=== PATIENT | female | born 1955 | race Caucasian/White ===

== ENCOUNTER → 2021-07-21 13:51 | Outpatient (BNVA) | payer OTHER, SELFPAY | PROVIDERS: PCP Internal Medicine; Visit Provider Psychiatry & Neurology Neurology | DX: M54.9 Dorsalgia, unspecified (principal); R20.2 Paresthesia of skin; F41.9 Anxiety disorder, unspecified; G47.33 Obstructive sleep apnea (adult) (pediatric) | CPT/HCPCS: 99212 ==

== ENCOUNTER 2021-09-10 11:12 | Outpatient (REF) | payer OTHER, SELFPAY ==
[2021-09-10 11:33] LABS: MANUAL DIFF FLAG NO
[2021-09-10 12:35] LABS: Basophils Absolute Auto 0.1 X10*3/uL (0.0-0.2); Basophils Percent Auto 0.5 % (0-2); Eosinophils Percent Auto 0.4 % (0-4); Hemoglobin 12.6 g/dl (12.0-16.0); Imm Gran Abs Auto 0.04 X10*3/uL (0.00-0.03); Imm Gran Pct Auto 0.4 % (0.0-0.4); Lymphocytes Absolute Auto 2.3 X10*3/uL (1.2-4.9); Lymphocytes Percent Auto 23.3 % (20-40); Mean Corpuscular HGB Conc 32.3 g/dl (31.0-35.0); Mean Corpuscular Hemoglobin 26.4 pg (27.0-33.0); Mean Corpuscular Volume 81.6 fL (80.0-98.0); Mean Platelet Volume 10.2 fL (9.4-12.3); Monocytes Absolute Auto 0.8 X10*3/uL (0.1-1.2); Monocytes Percent Auto 8.5 % (2-11); Neutrophils Absolute Auto 6.6 x10*3/uL (2.0-8.3); Neutrophils Percent Auto 66.9 % (45-73); Platelet Count 387 X10*3/uL (160-400); Red Blood Count 4.78 X10*6/uL (4.20-5.50); Red Cell Distribution Width 14.5 % (11.0-16.0); White Blood Count 9.9 X10*3/uL (4.8-10.8)
[2021-09-10 13:16] LABS: Protein/Creatinine Ratio, Ur 0.28 (<0.2); Total Protein Urine Random 11 mg/dL (<12)
[2021-09-10 13:17] LABS: C Reactive Protein 0.85 mg/dL (< or = 0.50); Erythrocyte Sedimentation Rate 13 MM/HR (0-20)
[2021-09-12 14:03] LABS: Anti DNA DS Antibody <1 IU/mL; SM/Ribonucleoprotein Ab <1.0 NEG AI (<1.0 NEG); Smith Protein <1.0 NEG AI (<1.0 NEG)
== END 2021-09-10 11:13 | disposition home or self-care (01) ==
LOC: HO.LAB 11:12
PROVIDERS: PCP Internal Medicine; Visit Provider Internal Medicine Rheumatology
DX: R76.8 Other specified abnormal immunological findings in serum (principal)
CPT/HCPCS: 36415; 84156; 85025; 85652; 86140; 86225; 86235

== ENCOUNTER 2021-09-30 13:42 | Outpatient (REF) | payer OTHER, SELFPAY ==
[2021-09-30 15:55] LABS: Creatinine Urine 128.45 mg/dL; Protein/Creatinine Ratio, Ur 0.09 (<0.2); Total Protein Urine Random 11 mg/dL (<12)
[2021-09-30 16:09] LABS: Estimated Glomerular Filt Rate > 60
== END 2021-09-30 13:43 | disposition home or self-care (01) ==
LOC: HO.LAB 13:42
PROVIDERS: PCP Internal Medicine; Visit Provider Internal Medicine Rheumatology
DX: R76.8 Other specified abnormal immunological findings in serum (principal)
CPT/HCPCS: 36415; 82565; 84156

== ENCOUNTER 2022-12-29 07:50 | Outpatient (AMB) | payer OTHER, SELFPAY ==
--- NOTE | 2022-12-29 07:56 | A.OFFVIS_ITS ---
Intake Vital Signs 12/29/22 07:57 Height 5 ft 2.5 in Weight 186 lb 4.65 oz BMI 33.5 BP 128/70 Blood Pressure Location Lt brachial Position Sitting Pulse 60 Pulse Source Pulse Oximeter Temp 97.2 F Temp Source Skin Pulse Oximetry (%) 98 Oxygen Delivery Method Room Air Intake Visit Reasons: + DAREN Intake Note: Patient presents today to follow up on +DAREN. Allergies Sulfa (Sulfonamide Antibiotics) Allergy (Intermediate, Verified 12/29/22 08:03) Rash sulfamethoxazole [From Bactrim] Allergy (Intermediate, Verified 12/29/22 08:03) Rash trimethoprim [From Bactrim] Allergy (Intermediate, Verified 12/29/22 08:03) Rash HPI HPI Comments History of Present Illness Details Patient presents today with the new onset of widespread pains. I had seen her about a year ago for a positive DAREN. At that time she had intermittent symptoms of back pain and hip pain consistent with osteoarthritis but no symptoms to suggest inflammatory arthritis. However about 2 months ago she noted the onset of worsening neck pain that radiated to the shoulders. The shoulder pain radiates to the upper arms. There eventually was also some buttock pain that radiated around to the groin. She found she was miserable at night but does improve after about 3 hours of stiffness in the mornings. She found that after she moved around more she felt better but with prolonged sitting the symptoms returned. She had some dull headache around her neck region. She did see her primary doctor. Cervical spine films showed osteoarthritis. Blood work showed elevated ESR and CRP. She was told to stop the omeprazole as that could be causing the problem. She has been off the omeprazole for a week and taking famotidine. Her heartburn did return but she thinks she is managing it. She has a sister with rheumatoid arthritis and cancer. [facility] Medical History (Updated 12/29/22 @ 08:42 by Joel Reeves MD) Paresthesias Vertigo HTN (hypertension) Arthritis Anemia Hypothyroidism Vertigo Anxiety Back pain Social History Household Members: Spouse Housing: House Are you a primary rn intensive care unit to a significant other at home: No Do you presently have visiting nurse or other home services: No 75 years or older and lives alone: No Alcohol intake: current Alcohol intake frequency: a few times a week Alcohol type: wine Patient Tobacco Use Status: Former Tobacco user Years Smoked: Quit 25 years ago e-Cigarette/Vaping Use: Never Used service: No Current occupational status: retired Review of Systems Const Details: Negative for appetite change, weight change, fever, chills, malaise and fatigue Eyes Details: Occasional headache accompanying her neck pain. Negative for vision change, dry eyes, and dizziness ENT Details: Some oral dryness at times. Negative for hearing change, tinnitus, oral ulcer, nose bleeds jaw claudication. Card Details: Negative chest pain, edema and syncope Resp Details: Negative for SOB, cough and wheezing GI Details: Some increase in frequency of heartburn. Negative indigestion/heartburn, nausea, abdominal pain, bowel changes, diarrhea, constipation and bloody stool. Details: Negative for dysuria, hematuria, nocturia, decreased force/flow and genital discharge Skin/Breast Details: Negative for itching, rash, hives, Raynaud's symptoms, sun sensitivity, and skin cancer Neuro Details: Negative for epilepsy, palsy, stroke, changes in speech, tingling and weakness Psych Details: Negative for anxiety, depression and stress Endo Details: Negative for polyuria and polydypsia Adi/Lymph Details: Negative for excessive bruising or bleeding. Physical Exam Vital Signs: Last Vital Signs Temp 97.2 F 12/29/22 07:57 Pulse 60 12/29/22 07:57 BP 128/70 12/29/22 07:57 Pulse Ox 98 12/29/22 07:57 Oxygen Delivery Method Room Air 12/29/22 07:57 BMI result Body Mass Index 33.5 APPEARANCE: Patient in no acute distress EYES no redness, pupils equal and reactive to light, eyelids normal; no temporal artery tenderness, redness or swelling EARS: External ear normal, canal clear and tympanic membrane normal. NOSE/SINUS: Airflow through both nares, no nasal discharge, no bleeding THROAT: Oral mucosa moist, no ulcerations NECK: No thyromegaly or masses, no adenopathy, trachea midline. Carotid upstrokes equal, no bruits HEART: Regulrar rhythm, S1-S2 heard, no murmurs, rubs or gallops. LUNG: Clear to percussion and auscultation ABD: Normal bowel sounds, no organomegaly, masses or tenderness. EXTREMITIES: No edema, no calf tenderness, normal peripheral pulses. NEURO: Oriented and alert x3. No focal weakness. Reflexes symmetric. Gait normal. SKIN: No inflammatory or neoplastic lesions. Normal color and turgor JOINT EXAM:.?? Cervical Spine:.? Mild pain with lateral flexion at 15 degrees of rotation at 45 degrees. There is some mild paraspinal muscle tenderness. Thoracic Spine:.? No scoliosis.? No tenderness on palpation. Lumbar Spine:.? Alignment normal.? Full range of motion without pain, no tenderness. Chest Wall:.? No tenderness, swelling, increased warmth or erythema. Hands:.? Normal pain-free range of motion without tenderness, swelling, increased warmth or erythema. There is no weakness, thenar atrophy or sensory loss. Wrists:.? Normal pain-free range of motion without tenderness, swelling, increased warmth or erythema. Negative Phalen's and Tinel signs. Elbows:. Normal pain-free range of motion without tenderness, swelling, increased warmth or erythema. Shoulders:.??Right: Mild pain with abduction 150 degrees or with extremes of rotation. Mild anterior tenderness. No abductor weakness or adenopathy. Left: Mild to moderate pain with abduction at 100 degrees, mild anterior and subacromial tenderness. Questionable weakness but no swelling or adenopathy.. Hips:.? There is pain in the groin with flexion at 90 degrees, also similar pains occur with any attempted internal or external rotation. She has pain when she is lying down supine trying to extend the hip to the horizontal. Pain is in the groin. Hip bursa:.? Mild bilateral trochanteric tenderness. Knees:.?? Normal pain-free range of motion without tenderness, swelling, increased warmth or erythema.? There is no effusion or crepitation Ankles:.? Normal pain-free range of motion without tenderness, swelling, increased warmth or erythema. Feet:.? There is mild bony enlargement at the 1st MTPs bilaterally, a bit more prominent on the right. The MTP joints today are not tender. Otherwise the joints in the feet have normal pain-free range of motion without tenderness, swelling, increased warmth or erythema. Tender points:. Mild tenderness to digital palpation at the trapezius, anterior chest, greater trochanter area bilaterally. Results Reviewed Results Reviewed: Laboratory Tests 09/10/21 09/10/2109/30/22 11:30 11:30 13:59 WBC 9.9 Hgb 12.6 Plt Count 387 ESR 13 Creatinine 0.80 C-Reactive Protein 0.85 H Sm (Wilson) Antibody <1.0 NEG SM/DRY ROOM ATTENDANT IgG Antibody <1.0 NEG Double Strand DNA Ab <1 December 17 lab work from [place]: Hemoglobin 12.2, white count was 10.1, ESR 35, creatinine 0.72, transaminases normal, TSH normal, DAREN positive at greater than 1:2560, homogeneous pattern, CRP elevated at 2.19 mg/dL T-scores from DEXA at [place] February 2022: LS spine T-score +0.7, left hip T-score +0.3 Assessment & Plan Assessment & Plan (1) Cervical osteoarthritis: Code(s): M47.812 - Spondylosis without myelopathy or radiculopathy, cervical region (2) DAREN positive: Comment: 2021: 1:1280, homogeneous Code(s): R76.8 - Other specified abnormal immunological findings in serum (3) Polymyalgia rheumatica: Code(s): M35.3 - Polymyalgia rheumatica Plan The patient's symptom complex is quite consistent with the onset of PMR about 2 months ago. I do not see signs of giant cell arteritis or large vessel vasculitis. The positive DAREN was noted before but her clinical syndrome is more consistent with PMR. She does have typical morning stiffness in hip and shoulder pains. She does have some occipital headache but it seems more related to cervical pains. There is underlying cervical spine osteoarthritis, the x-ray showed such pathology that has probably been there for years. I gave her some written information on PMR to review. We will start her trial of prednisone with 5 mg tablets: 10 b.i.d. for 3 days then 10 mg in the morning and 5 mg the afternoon. She is to call us next week with how she feels. We will of course try to taper the prednisone as low as we can. She is encouraged to remain physically active. We reviewed potential side effects of the prednisone. Her DEXA was normal in February of last year so that makes the risk of corticosteroid induced osteoporosis much less. We will plan to see her back in about a month with lab work before that visit but she should call us again next week. Orders: Orders Complete Blood Count Auto Diff Today M35.3 - Polymyalgia rheumatica Vitamin D 25-OH (D2 and D3) Today Z79.52 - senior living (current) use of systemic steroids Erythrocyte Sedimentation Rate Today M35.3 - Polymyalgia rheumatica C Reactive Protein Today M35.3 - Polymyalgia rheumatica Basic Metabolic Panel Today Z79.52 - senior living (current) use of systemic steroids Medications: New prednisone take 2 tabs twice a day for 3 days, then two in AM and one in PM; 90 tabs 1RF M35.3 - Polymyalgia rheumatica Coding Level of Care Code New Pt Level 3 (88562) Diagnoses Cervical osteoarthritis M47.812 DAREN positive R76.8 Polymyalgia rheumatica M35.3
[2022-12-29 07:57] VITALS: BP 128/70; PULSE 60; TEMP 36.2; O2SAT 98; BMI 33.5
== END 2022-12-29 08:52 | disposition home or self-care (01) ==
PROVIDERS: PCP Internal Medicine; Referring Provider Internal Medicine; Visit Provider Internal Medicine Rheumatology
DX: M47.812 Spondylosis without myelopathy or radiculopathy, cervical region (principal); R76.8 Other specified abnormal immunological findings in serum; M35.3 Polymyalgia rheumatica
CPT/HCPCS: 99214

== ENCOUNTER → 2022-12-29 07:50 | Outpatient (BNVA) | payer OTHER, SELFPAY | PROVIDERS: PCP Internal Medicine; Visit Provider Internal Medicine Rheumatology | DX: R76.8 Other specified abnormal immunological findings in serum (principal); M47.812 Spondylosis without myelopathy or radiculopathy, cervical region; M35.3 Polymyalgia rheumatica | CPT/HCPCS: 99212 ==

== ENCOUNTER 2023-01-25 11:06 | Outpatient (AMB) | payer MEDICARE, MEDICAID, SELFPAY ==
--- NOTE | 2023-01-25 11:19 | MHC.OFFVIS ---
Intake Vital Signs 01/25/23 11:20 Height 5 ft 2.5 in Weight 183 lb 6.793 oz BMI 33.0 BP 140/80 H Blood Pressure Location Rt brachial Position Sitting Pulse 66 Pulse Source Pulse Oximeter Temp 97 F Temp Source Skin Pulse Oximetry (%) 99 Oxygen Delivery Method Room Air Intake Visit Reasons: +DAREN Intake Note: Patient presents today to follow up on +DAREN. Engine Cleaner Required: No Accompanied by: Self / Same As Patient Allergies Sulfa (Sulfonamide Antibiotics) Allergy (Intermediate, Verified 01/25/23 11:20) Rash sulfamethoxazole [From Bactrim] Allergy (Intermediate, Verified 01/25/23 11:20) Rash trimethoprim [From Bactrim] Allergy (Intermediate, Verified 01/25/23 11:20) Rash rosuvastatin Adverse Reaction (Severe, Verified 01/25/23 11:26) Joint Pain Medication List - Last Reconciled 01/25/23 by Joel Reeves MD atenolol 12.5 mg PO BID clonazepam 0.5 mg PO TID PRN CPAP As directed famotidine 20 mg PO BID hydralazine 25 mg PO BID levothyroxine 100 mcg PO DAILY prednisone 5 mg PO BID HPI HPI Comments History of Present Illness Details The patient returns today for evaluation of her PMR. She says her PMR symptoms are all but gone. She is at 5 mg twice a day prednisone. There is occasional stiffness and pain in the neck that she has had for years attributed to osteoarthritis. On the 06 of January however she was hospitalized with headaches, dizziness, and confusion. At the hospital she was put on anticoagulant briefly and worked up for TIA. There were no obvious vascular lesions seen on her CT angiogram of the neck and brain. She describes that her blood pressure fluctuated quite a bit in the hospital. She was put on aspirin, atenolol 12.5 b.i.d., hydralazine 25 b.i.d. and discharged. The prednisone was due to reduced to 5 mg twice a day. Her blood week from last week however showed a 3 g drop in her hemoglobin to 9.3. ESR was 35, CRP 0.59. She had the hemoglobin re checked in the ER the next day and it was about the same at 9.6. She does not recall any melena, hematochezia, or abdominal pain. She gets occasional heartburn but she was switched off her omeprazole and put on famotidine few weeks ago. She is getting occasional lightheadedness and headache still. Further workup in cardiology is planned for next week. She sees her primary care doctor in a couple of days. [facility] Medical History (Updated 12/29/22 @ 08:42 by Joel Reeves MD) Paresthesias Vertigo HTN (hypertension) Arthritis Anemia Hypothyroidism Vertigo Anxiety Back pain Social History Household Members: Spouse Housing: House Are you a primary rn critical care to a significant other at home: No Do you presently have visiting nurse or other home services: No 75 years or older and lives alone: No Alcohol intake: current Alcohol intake frequency: a few times a week Alcohol type: wine Patient Tobacco Use Status: Former Tobacco user Years Smoked: Quit 25 years ago e-Cigarette/Vaping Use: Never Used service: No Current occupational status: retired Review of Systems Const Details: Negative for appetite change, weight change, fever, chills, malaise and fatigue Eyes Details: Occasional headache. Lightheaded spells have diminished. Negative for vision change, dry eyes ENT Details: Negative for hearing change, tinnitus, oral ulcer, nose bleeds and oral dryness. Card Details: Occasional nonexertional chest tightness and palpitation. She says she has had these before. Negative for, edema and syncope Resp Details: Negative for SOB, cough and wheezing GI Details: Negative indigestion/heartburn, nausea, abdominal pain, bowel changes, diarrhea, constipation and bloody stool. Neuro Details: Negative for epilepsy, palsy, stroke, changes in speech, tingling and weakness Endo Details: Negative for polyuria and polydypsia Adi/Lymph Details: Negative for excessive bruising or bleeding. Physical Exam Vital Signs: Last Vital Signs Temp 97 F 01/25/23 11:20 Pulse 66 01/25/23 11:20 BP 140/80 H 01/25/23 11:20 Pulse Ox 99 01/25/23 11:20 Oxygen Delivery Method Room Air 01/25/23 11:20 BMI result Body Mass Index 33.0 APPEARANCE: Patient in no acute distress EYES no redness, pupils equal and reactive to light, eyelids normal; no temporal artery tenderness, redness or swelling HEART: Regulrar rhythm, S1-S2 heard, no murmurs, rubs or gallops. LUNG: Clear to percussion and auscultation ABD: Normal bowel sounds, no organomegaly, masses or tenderness. EXTREMITIES: No edema, no calf tenderness, normal peripheral pulses. NEURO: Oriented and alert x3. No focal weakness. Reflexes symmetric. Gait normal. SKIN: No inflammatory or neoplastic lesions. Normal color and turgor JOINT EXAM:.?? Cervical Spine:.? Mild discomfort pain with lateral flexion at 15 degrees of rotation at 45 degrees. There is no paraspinal muscle tenderness. Thoracic Spine:.? No scoliosis.? No tenderness on palpation. Lumbar Spine:.? Alignment normal.? Full range of motion without pain, no tenderness. Chest Wall:.? No tenderness, swelling, increased warmth or erythema. Hands:.? Normal pain-free range of motion without tenderness, swelling, increased warmth or erythema. There is no weakness, thenar atrophy or sensory loss. Wrists:.? Normal pain-free range of motion without tenderness, swelling, increased warmth or erythema. Negative Phalen's and Tinel signs. Elbows:. Normal pain-free range of motion without tenderness, swelling, increased warmth or erythema. Shoulders: normal pain-free range of motion. No tenderness, swelling, adenopathy or weakness. Hips: Normal pain-free range of motion. Hip bursa:.? Nol trochanteric tenderness. Knees:.?? Normal pain-free range of motion without tenderness, swelling, increased warmth or erythema.? There is no effusion or crepitation Ankles:.? Normal pain-free range of motion without tenderness, swelling, increased warmth or erythema. Feet:? There is mild bony enlargement at the 1st MTPs bilaterally, a bit more prominent on the right. The MTP joints today are not tender. Otherwise the joints in the feet have normal pain-free range of motion without tenderness, swelling, increased warmth or erythema. Tender points: Mild tenderness to digital palpation at the trapezius, anterior chest, greater trochanter area bilaterally. ? Results Reviewed Results Reviewed: January 19 lab work from [facility]: White count 10.8, hemoglobin 9.3, hematocrit 28.9, ESR 35, CRP 0.59 Assessment & Plan Assessment & Plan (1) Anemia: Code(s): D64.9 - Anemia, unspecified (2) HTN (hypertension): Code(s): I10 - Essential (primary) hypertension (3) Polymyalgia rheumatica: Code(s): M35.3 - Polymyalgia rheumatica Plan She has had a good response to the prednisone consistent with her having PMR. She has some headaches that occurred when we put her on the prednisone so I do not think it is likely related to GCA but more likely some discomfort related to her fluctuating blood pressures. The cause of the anemia that developed after she was hospitalized on the is unclear. She was on some low-dose aspirin when she left the hospital and had been treated with some anticoagulant while in the hospital so if there were any sources of GI bleeding they might be exacerbated by the anticoagulant effect of both medications. At least when we had a recheck the following day the hemoglobin was slightly better. She again does not seem to have any significant GI symptoms. She does have follow-up planned to evaluate her palpitations and lightheaded spells. For now we will keep the prednisone at 5 mg b.i.d.. The sed rate has not yet returned to fully normal range and may have been elevated because of what ever was causing the palpitations, lightheadedness and anemia. We will recheck the ESR and CRP next week to see if the values have normalized. She was encouraged to follow up with primary care and cardiology as planned. Orders: Orders Erythrocyte Sedimentation Rate Today M35.3 - Polymyalgia rheumatica C Reactive Protein Today M35.3 - Polymyalgia rheumatica IRON PROFILE Today D64.9 - Anemia, unspecified Coding Level of Care Code Est Pt Level 4 (85730) Diagnoses Anemia D64.9 HTN (hypertension) I10 Polymyalgia rheumatica M35.3
[2023-01-25 11:20] VITALS: BP 140/80; PULSE 66; TEMP 36.1; O2SAT 99; BMI 33.0
== END 2023-01-25 12:18 | disposition home or self-care (01) ==
PROVIDERS: PCP Internal Medicine; Visit Provider Internal Medicine Rheumatology
DX: D64.9 Anemia, unspecified (principal); I10 Essential (primary) hypertension; M35.3 Polymyalgia rheumatica
CPT/HCPCS: 99214

== ENCOUNTER → 2023-01-25 11:06 | Outpatient (BNVA) | payer MEDICARE, MEDICAID, SELFPAY | PROVIDERS: PCP Internal Medicine; Visit Provider Internal Medicine Rheumatology | DX: M35.3 Polymyalgia rheumatica (principal); I10 Essential (primary) hypertension; D64.9 Anemia, unspecified | CPT/HCPCS: 99212 ==

== ENCOUNTER 2023-02-01 12:08 | Outpatient (REF) | payer MEDICARE, MEDICAID, SELFPAY ==
[2023-02-01 12:22] LABS: MANUAL DIFF FLAG NO
[2023-02-01 12:46] LABS: Basophils Absolute Auto 0.1 X10*3/uL (0.0-0.2); Basophils Percent Auto 0.5 % (0-2); Eosinophils Absolute Auto 0.2 X10*3/uL (0.0-0.4); Eosinophils Percent Auto 1.9 % (0-4); Hematocrit 32.6 % (37.0-47.0); Hemoglobin 10.2 g/dl (12.0-16.0); Imm Gran Abs Auto 0.06 X10*3/uL (0.00-0.03); Imm Gran Pct Auto 0.5 % (0.0-0.4); Lymphocytes Absolute Auto 2.9 X10*3/uL (1.2-4.9); Mean Corpuscular HGB Conc 31.3 g/dl (31.0-35.0); Mean Corpuscular Volume 86.2 fL (80.0-98.0); Mean Platelet Volume 9.9 fL (9.4-12.3); Monocytes Absolute Auto 0.8 X10*3/uL (0.1-1.2); Monocytes Percent Auto 6.3 % (2-11); Neutrophils Absolute Auto 8.6 x10*3/uL (2.0-8.3); Neutrophils Percent Auto 67.8 % (45-73); Platelet Count 472 X10*3/uL (160-400); Red Blood Count 3.78 X10*6/uL (4.20-5.50); Red Cell Distribution Width 13.4 % (11.0-16.0); White Blood Count 12.6 X10*3/uL (4.8-10.8)
[2023-02-01 13:21] LABS: C Reactive Protein 1.82 mg/dL (< or = 0.50); Iron 21 mcg/dL (30-160); Percent Iron Saturation 7 % (15-50); Total Iron Binding Capacity 300 mcg/dL (228-428); Unsaturated Iron Binding 279 ug/dL
[2023-02-01 13:52] LABS: Erythrocyte Sedimentation Rate 58 MM/HR (0-20)
== END 2023-02-01 12:09 | disposition home or self-care (01) ==
LOC: HO.LAB 12:08
PROVIDERS: PCP Internal Medicine; Referring Provider Internal Medicine; Visit Provider Internal Medicine Rheumatology
DX: M35.3 Polymyalgia rheumatica (principal); D64.9 Anemia, unspecified; Z79.899 Other long term (current) drug therapy
CPT/HCPCS: 36415; 83540; 85025; 85652; 86140

== ENCOUNTER 2023-02-23 10:50 | Outpatient (REF) | payer OTHER, SELFPAY ==
[2023-02-23 12:54] LABS: C Reactive Protein 0.47 mg/dL (< or = 0.50)
[2023-02-23 13:06] LABS: Erythrocyte Sedimentation Rate 29 MM/HR (0-20)
== END 2023-02-23 10:51 | disposition home or self-care (01) ==
LOC: HO.LAB 10:50
PROVIDERS: PCP Internal Medicine; Visit Provider Internal Medicine Rheumatology
DX: R70.0 Elevated erythrocyte sedimentation rate (principal); M35.3 Polymyalgia rheumatica
CPT/HCPCS: 36415; 82550; 85652; 86140; 99212

== ENCOUNTER 2023-02-23 10:50 | Outpatient (AMB) | payer MEDICARE, MEDICAID, SELFPAY ==
--- NOTE | 2023-02-23 10:54 | A.OFFVIS_ITS ---
Intake Vital Signs 02/23/23 10:55 Height 5 ft 2.5 in Weight 185 lb 6.54 oz BMI 33.4 BP 116/72 Blood Pressure Location Lt brachial Position Sitting Pulse 59 Pulse Source Pulse Oximeter Pulse Oximetry (%) 96 Oxygen Delivery Method Room Air Intake Visit Reasons: pmr Intake Note: Patient last seen 01/25/23, presents today for follow up and test results. Svp Research And Strategic Analysis Required: No Accompanied by: Self / Same As Patient Allergies Sulfa (Sulfonamide Antibiotics) Allergy (Intermediate, Verified 02/23/23 11:03) Rash sulfamethoxazole [From Bactrim] Allergy (Intermediate, Verified 02/23/23 11:03) Rash trimethoprim [From Bactrim] Allergy (Intermediate, Verified 02/23/23 11:03) Rash rosuvastatin Adverse Reaction (Severe, Verified 02/23/23 11:03) Joint Pain Medication List - Last Reconciled 02/23/23 by Joel Reeves MD atenolol 12.5 mg PO BID clonazepam 0.5 mg PO TID PRN CPAP As directed ferrous sulfate (Feosol) 325 mg PO DAILY hydralazine 25 mg PO BID levothyroxine 100 mcg PO DAILY omeprazole 20 mg PO DAILY prednisone one tab in AM and 1/2 tab in PM daily HPI HPI Comments History of Present Illness Details The patient returns for evaluation of her PMR and iron deficiency anemia. She presently is taking 5 mg of prednisone the morning and 2.5 in the evening. She feels mostly pretty good but does have some fatigue when she is walking. Her daughter, a PT is instructing her in some hip exercises. The patient has some occasional pain in the groin regions but not consistently so. She had some left posterior knee pain after a busy day taking care of a toddler. There has been no headache. She notes deteriorated vision since the beginning of the summer. There is no jaw claudication. She did see GI about her iron deficiency anemia. They did an abdominal CT scan that did not show significant pathology outside of a hiatal hernia. She has had treatment for reflux symptoms for years. When she developed the polyarthralgias the omeprazole was switched to famotidine and the GI symptoms worsened. She is back on omeprazple now and is taking an iron supplement right now. She believes there are plans for endoscopy in the future but it is not scheduled yet. She did see Cardiology about her palpitations and workup has concluded with no significant changes in her medications. Blood pressure control seems better she says with the combination of hydralazine and atenolol. [facility] Medical History (Updated 02/23/23 @ 11:22 by Joel Reeves MD) Paresthesias Vertigo HTN (hypertension) Arthritis Anemia Hypothyroidism Vertigo Anxiety Back pain Social History Household Members: Spouse Housing: House Are you a primary director medicare sales to a significant other at home: No Do you presently have visiting nurse or other home services: No 75 years or older and lives alone: No Alcohol intake: current Alcohol intake frequency: a few times a week Alcohol type: wine Patient Tobacco Use Status: Former Tobacco user Years Smoked: Quit 25 years ago e-Cigarette/Vaping Use: Never Used service: No Current occupational status: retired Review of Systems Const Details: Low energy at times. Negative for appetite change, weight change, fever, chills, malaise and fatigue Eyes Details: Some change in her vision since the summer. No episodic visual changes the. Negative for dry eyes,headaches and dizziness ENT Details: Negative for hearing change, tinnitus, oral ulcer, nose bleeds and oral dryness. Card Details: Negative chest pain, edema and syncope Resp Details: Negative for SOB, cough and wheezing GI Details: Occasional fullness in the epigastrium after eating . Negative nausea, abdominal pain, bowel changes, diarrhea, constipation and bloody stool. Adi/Lymph Details: Negative for excessive bruising or bleeding. Physical Exam Vital Signs: Last Vital Signs Pulse 59 02/23/23 10:55 BP 116/72 02/23/23 10:55 Pulse Ox 96 02/23/23 10:55 Oxygen Delivery Method Room Air 02/23/23 10:55 BMI result Body Mass Index 33.4 APPEARANCE: Patient in no acute distress EYES no redness, pupils equal and reactive to light, eyelids normal EYES no redness, pupils equal and reactive to light, eyelids normal; no temporal artery tenderness, redness or swelling HEART: Regulrar rhythm, S1-S2 heard, no murmurs, rubs or gallops. LUNG: Clear to percussion and auscultation ABD: Normal bowel sounds, no organomegaly, masses or tenderness. EXTREMITIES: No edema, no calf tenderness, normal peripheral pulses. NEURO: Oriented and alert x3. No focal weakness. Reflexes symmetric. Gait normal. SKIN: No inflammatory or neoplastic lesions. Normal color and turgor JOINT EXAM:.?? Cervical Spine:.? Mild discomfort pain with lateral flexion at 15 degrees of rotation at 45 degrees. There is no paraspinal muscle tenderness. Thoracic Spine:.? No scoliosis.? No tenderness on palpation. Lumbar Spine:.? Alignment normal.? Full range of motion without pain, no tenderness. Chest Wall:.? No tenderness, swelling, increased warmth or erythema. Hands:.? Normal pain-free range of motion without tenderness, swelling, increased warmth or erythema. There is no weakness, thenar atrophy or sensory loss. Wrists:.? Normal pain-free range of motion without tenderness, swelling, increased warmth or erythema. Negative Phalen's and Tinel signs. Elbows:. Normal pain-free range of motion without tenderness, swelling, increa sed warmth or erythema. Shoulders: normal pain-free range of motion. No tenderness, swelling, adenopathy or weakness. Hips: Right: Slight groin pain with extremes of normal abduction, internal rotation, or external rotation. No groin tenderness or mass. Left: Normal pain-free range of motion. Hip bursa:.? No trochanteric tenderness. Knees:.?? Normal pain-free range of motion without tenderness, swelling, increased warmth or erythema.? There is no effusion or crepitation Ankles:.? Normal pain-free range of motion without tenderness, swelling, increased warmth or erythema. Feet:? There is mild bony enlargement at the 1st MTPs bilaterally, a bit more prominent on the right. The MTP joints today are not tender. Otherwise the joints in the feet have normal pain-free range of motion without tenderness, swelling, increased warmth or erythema. Tender points: Mild tenderness to digital palpation at the trapezius, anterior chest, greater trochanter area bilaterally. ? Results Reviewed Results Reviewed: Laboratory Tests 02/01/23 12:21 WBC 12.6 H Hgb 10.2 L ESR 58 H % Saturation 7 L C-Reactive Protein 1.82 H Assessment & Plan Assessment & Plan (1) ESR raised: Code(s): R70.0 - Elevated erythrocyte sedimentation rate (2) Polymyalgia rheumatica: Code(s): M35.3 - Polymyalgia rheumatica Plan PMR with it seems fairly good control of inflammatory symptoms. She still has some discomfort in the right hip. This could be some degenerative process rather than active inflammation from PMR. There are no signs of giant cell arteritis. We will recheck her inflammatory markers and consider further taper of the prednisone if those look okay. She has follow-up with her primary doctor on the iron deficiency anemia planned. Follow-up in 2 months seems reasonable. Orders: Orders Erythrocyte Sedimentation Rate Today M35.3 - Polymyalgia rheumatica, R70.0 - Elevated erythrocyte sedimentation rate C Reactive Protein Today M35.3 - Polymyalgia rheumatica Creatine Kinase Total Today M35.3 - Polymyalgia rheumatica, R70.0 - Elevated erythrocyte sedimentation rate Coding Level of Care Code Est Pt Level 3 (95659) Diagnoses ESR raised R70.0 Polymyalgia rheumatica M35.3
[2023-02-23 10:55] VITALS: BP 116/72; PULSE 59; O2SAT 96; BMI 33.4
== END 2023-02-23 11:29 | disposition home or self-care (01) ==
PROVIDERS: PCP Internal Medicine; Visit Provider Internal Medicine Rheumatology
DX: R70.0 Elevated erythrocyte sedimentation rate (principal); M35.3 Polymyalgia rheumatica
CPT/HCPCS: 99213

== ENCOUNTER 2023-04-21 12:11 | Outpatient (REF) | payer MEDICARE, MEDICAID, SELFPAY ==
[2023-04-21 12:43] LABS: MANUAL DIFF FLAG NO
[2023-04-21 12:59] LABS: Basophils Absolute Auto 0.1 X10*3/uL (0.0-0.2); Basophils Percent Auto 0.4 % (0-2); Eosinophils Percent Auto 0.2 % (0-4); Hematocrit 37.2 % (37.0-47.0); Hemoglobin 12.1 g/dl (12.0-16.0); Imm Gran Abs Auto 0.08 X10*3/uL (0.00-0.03); Imm Gran Pct Auto 0.6 % (0.0-0.4); Lymphocytes Absolute Auto 2.2 X10*3/uL (1.2-4.9); Lymphocytes Percent Auto 16.3 % (20-40); Mean Corpuscular HGB Conc 32.5 g/dl (31.0-35.0); Mean Corpuscular Hemoglobin 25.6 pg (27.0-33.0); Mean Corpuscular Volume 78.6 fL (80.0-98.0); Mean Platelet Volume 9.8 fL (9.4-12.3); Monocytes Absolute Auto 0.6 X10*3/uL (0.1-1.2); Monocytes Percent Auto 4.5 % (2-11); Neutrophils Absolute Auto 10.4 x10*3/uL (2.0-8.3); Platelet Count 388 X10*3/uL (160-400); Red Blood Count 4.73 X10*6/uL (4.20-5.50); Red Cell Distribution Width 14.2 % (11.0-16.0); White Blood Count 13.3 X10*3/uL (4.8-10.8)
[2023-04-21 13:22] LABS: C Reactive Protein 1.11 mg/dL (< or = 0.50)
[2023-04-21 13:38] LABS: Erythrocyte Sedimentation Rate 10 MM/HR (0-20)
== END 2023-04-21 12:12 | disposition home or self-care (01) ==
LOC: HO.LAB 12:11
PROVIDERS: Visit Provider Internal Medicine Rheumatology
DX: M35.3 Polymyalgia rheumatica (principal)
CPT/HCPCS: 36415; 85025; 85652; 86140

== ENCOUNTER 2023-04-27 13:01 | Outpatient (AMB) | payer MEDICARE, SELFPAY ==
--- NOTE | 2023-04-27 13:12 | MHC.OFFVIS ---
Intake Vital Signs 04/27/23 13:15 Height 5 ft 2.5 in Weight 195 lb 15.855 oz BMI 35.3 BP 140/80 H Blood Pressure Location Rt brachial Position Sitting Pulse 95 Pulse Source Pulse Oximeter Temp 97 F Temp Source Skin Pulse Oximetry (%) 97 Oxygen Delivery Method Room Air Intake Visit Reasons: PMR Intake Note: Patient last seen 01/25/[address] Reeves, presents today for PMR follow up and test results. Would like to discuss prednisone dose. Tube Knitter Required: No Accompanied by: Self / Same As Patient Allergies Sulfa (Sulfonamide Antibiotics) Allergy (Intermediate, Verified 04/27/23 13:15) Rash sulfamethoxazole [From Bactrim] Allergy (Intermediate, Verified 04/27/23 13:15) Rash trimethoprim [From Bactrim] Allergy (Intermediate, Verified 04/27/23 13:15) Rash rosuvastatin Adverse Reaction (Severe, Verified 04/27/23 13:15) Joint Pain HPI HPI Comments History of Present Illness Details Mrs. Esteves 67yoF returns for evaluation of her PMR and iron deficiency anemia. Patient reports doing well and has not had any return of PMR symptoms since last visit. Prior visit: 02/2023 She presently is taking 5 mg of prednisone the morning and 2.5 in the evening. She feels mostly pretty good but does have some fatigue when she is walking. Her daughter, a PT is instructing her in some hip exercises. The patient has some occasional pain in the groin regions but not consistently so. She had some left posterior knee pain after a busy day taking care of a toddler. There has been no headache. She notes deteriorated vision since the beginning of the summer. There is no jaw claudication. She did see GI about her iron deficiency anemia. They did an abdominal CT scan that did not show significant pathology outside of a hiatal hernia. She has had treatment for reflux symptoms for years. When she developed the polyarthralgias the omeprazole was switched to famotidine and the GI symptoms worsened. She is back on omeprazple now and is taking an iron supplement right now. She believes there are plans for endoscopy in the future but it is not scheduled yet. She did see Cardiology about her palpitations and workup has concluded with no significant changes in her medications. Blood pressure control seems better she says with the combination of hydralazine and atenolol. [facility] Medical History (Updated 02/23/23 @ 11:22 by Joel Reeves MD) Paresthesias Vertigo HTN (hypertension) Arthritis Anemia Hypothyroidism Vertigo Anxiety Back pain Social History Household Members: Spouse Housing: House Are you a primary manager of care to a significant other at home: No Do you presently have visiting nurse or other home services: No 75 years or older and lives alone: No Alcohol intake: current Alcohol intake frequency: a few times a week Alcohol type: wine Patient Tobacco Use Status: Former Tobacco user Years Smoked: Quit 25 years ago e-Cigarette/Vaping Use: Never Used service: No Current occupational status: retired Physical Exam Vital Signs: Last Vital Signs Temp 97 F 04/27/23 13:15 Pulse 95 04/27/23 13:15 BP 140/80 H 04/27/23 13:15 Pulse Ox 97 04/27/23 13:15 Oxygen Delivery Method Room Air 04/27/23 13:15 BMI result Body Mass Index 35.3 Results Reviewed Results Reviewed: January 19 lab work from [facility]: White count 10.8, hemoglobin 9.3, hematocrit 28.9, ESR 35, CRP 0.59 Laboratory Tests 02/01/23 12:21 WBC 12.6 H Hgb 10.2 L ESR 58 H % Saturation 7 L C-Reactive Protein 1.82 H Laboratory Tests 04/21/23 12:41 WBC 13.3 H RBC 4.73 D Hgb 12.1 ESR 10 C-Reactive Protein 1.11 H Assessment & Plan Assessment & Plan (1) ESR raised: Code(s): R70.0 - Elevated erythrocyte sedimentation rate (2) Polymyalgia rheumatica: Code(s): M35.3 - Polymyalgia rheumatica Plan #PMR with it seems fairly good control of inflammatory symptoms. ESR/CRP continues to improve with ESR at goal. She still has some discomfort in the right hip. This could be some degenerative process rather than active inflammation from PMR. There are no signs of giant cell arteritis. We will further taper the prednisone by 1 mg each month. We will recheck ESR/CRP/CBC before next visit. Patient knows to call office if PMR symptoms return on lower doses. We discussed that if symptoms return on lower doses she will go back to the previous dose for 2 weeks and then proceed again with taper. #Anemia:She has follow-up with her primary doctor on the iron deficiency anemia planned and is improved. She will continue on ferrous sulfate 325 mg daily. Follow-up in 2 with labs 1 week before next visit. Orders: Orders Erythrocyte Sedimentation Rate 04/27/23 M35.3 - Polymyalgia rheumatica Complete Blood Count Auto Diff 04/27/23 M35.3 - Polymyalgia rheumatica, Z79.899 - Other longterm (current) drug therapy C Reactive Protein 04/27/23 M35.3 - Polymyalgia rheumatica Medications: New prednisone Take 4 tablets per day x 30 days, 3 tablets per day x 30 days, 2 tablets per day x 30 days. 360 tabs 0RF M35.3 - Polymyalgia rheumatica Coding Level of Care Code Est Pt Level 3 (42494) Diagnoses ESR raised R70.0 Polymyalgia rheumatica M35.3
[2023-04-27 13:15] VITALS: BP 140/80; PULSE 95; TEMP 36.1; O2SAT 97; BMI 35.3
== END 2023-04-27 13:51 | disposition home or self-care (01) ==
PROVIDERS: PCP Internal Medicine; Visit Provider Nurse Practitioner Family
DX: R70.0 Elevated erythrocyte sedimentation rate (principal); M35.3 Polymyalgia rheumatica
CPT/HCPCS: 99213

== ENCOUNTER → 2023-04-27 13:01 | Outpatient (BNVA) | payer MEDICARE, SELFPAY | PROVIDERS: PCP Internal Medicine; Visit Provider Nurse Practitioner Family | DX: M35.3 Polymyalgia rheumatica (principal); R70.0 Elevated erythrocyte sedimentation rate | CPT/HCPCS: 99212 ==

== ENCOUNTER 2023-06-22 12:42 | Outpatient (REF) | payer MEDICARE, SELFPAY ==
[2023-06-22 12:55] LABS: MANUAL DIFF FLAG NO
[2023-06-22 14:21] LABS: Basophils Absolute Auto 0.1 X10*3/uL (0.0-0.2); Basophils Percent Auto 0.5 % (0-2); Eosinophils Percent Auto 0.4 % (0-4); Hematocrit 37.3 % (37.0-47.0); Hemoglobin 12.4 g/dl (12.0-16.0); Imm Gran Abs Auto 0.05 X10*3/uL (0.00-0.03); Imm Gran Pct Auto 0.5 % (0.0-0.4); Lymphocytes Absolute Auto 2.6 X10*3/uL (1.2-4.9); Lymphocytes Percent Auto 26.8 % (20-40); Mean Corpuscular HGB Conc 33.2 g/dl (31.0-35.0); Mean Corpuscular Hemoglobin 26.7 pg (27.0-33.0); Mean Corpuscular Volume 80.2 fL (80.0-98.0); Mean Platelet Volume 9.9 fL (9.4-12.3); Monocytes Absolute Auto 0.7 X10*3/uL (0.1-1.2); Monocytes Percent Auto 7.6 % (2-11); Neutrophils Absolute Auto 6.2 x10*3/uL (2.0-8.3); Neutrophils Percent Auto 64.2 % (45-73); Platelet Count 374 X10*3/uL (160-400); Red Blood Count 4.65 X10*6/uL (4.20-5.50); Red Cell Distribution Width 15.5 % (11.0-16.0); White Blood Count 9.7 X10*3/uL (4.8-10.8)
[2023-06-22 15:02] LABS: Erythrocyte Sedimentation Rate 8 MM/HR (0-20)
[2023-06-22 15:33] LABS: C Reactive Protein 1.04 mg/dL (< or = 0.50)
== END 2023-06-22 12:43 | disposition home or self-care (01) ==
LOC: HO.LAB 12:42
PROVIDERS: PCP Internal Medicine; Visit Provider Nurse Practitioner Family
DX: M35.3 Polymyalgia rheumatica (principal); Z79.899 Other long term (current) drug therapy
CPT/HCPCS: 36415; 85025; 85652; 86140

== ENCOUNTER 2023-06-24 13:30 | Outpatient (AMB) | payer MEDICARE, SELFPAY ==
--- NOTE | 2023-06-24 13:40 | MHC.OFFVIS ---
Vital Signs 06/24/23 13:56 Height 5 ft 2.5 in Weight 195 lb 5.273 oz BMI 35.2 BP 128/70 Blood Pressure Location Rt brachial Position Sitting Pulse 83 Pulse Source Pulse Oximeter Pulse Oximetry (%) 97 Oxygen Delivery Method Room Air Intake Visit Reasons: PMR Intake Note: Patient last seen 04/27/23, presents today for follow up and test results. 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 Esteves 67yoF returns for evaluation of her PMR and iron deficiency anemia. Patient reports doing well and has not had any return of PMR symptoms since last visit. She sees PCP next month. July. She is feeling better so she is increasing her activity. She aches more on rainy days. She is on Prednisone 3 mg QD and changes to 2mg on Wednesday. She is feeling better with this taper. Certain foods also affect how she feels. She is documenting which foods adversely affects her. Prior visit: 02/2023 She presently is taking 5 mg of prednisone the morning and 2.5 in the evening. She feels mostly pretty good but does have some fatigue when she is walking. Her daughter, a PT is instructing her in some hip exercises. The patient has some occasional pain in the groin regions but not consistently so. She had some left posterior knee pain after a busy day taking care of a toddler. There has been no headache. She notes deteriorated vision since the beginning of the summer. There is no jaw claudication. She did see GI about her iron deficiency anemia. They did an abdominal CT scan that did not show significant pathology outside of a hiatal hernia. She has had treatment for reflux symptoms for years. When she developed the polyarthralgias the omeprazole was switched to famotidine and the GI symptoms worsened. She is back on omeprazple now and is taking an iron supplement right now. She believes there are plans for endoscopy in the future but it is not scheduled yet. She did see Cardiology about her palpitations and workup has concluded with no significant changes in her medications. Blood pressure control seems better she says with the combination of hydralazine and atenolol. [facility] Medical History (Updated 06/24/23 @ 14:21 by TWILA Chua) Paresthesias Vertigo HTN (hypertension) Arthritis Anemia Hypothyroidism Vertigo Anxiety Back pain Social History Household Members: Spouse Housing: House Are you a primary career transition specialist to a significant other at home: No Do you presently have visiting nurse or other home services: No 75 years or older and lives alone: No Alcohol intake: current Alcohol intake frequency: a few times a week Alcohol type: wine Patient Tobacco Use Status: Former Tobacco user Years Smoked: Quit 25 years ago e-Cigarette/Vaping Use: Never Used service: No Current occupational status: retired Review of Systems Const All systems reviewed & are unremarkable except as noted in HPI and below Physical Exam Vital Signs: Last Vital Signs Pulse 83 06/24/23 13:56 BP 128/70 06/24/23 13:56 Pulse Ox 97 06/24/23 13:56 Oxygen Delivery Method Room Air 06/24/23 13:56 BMI result Body Mass Index 35.2 Vital signs reviewed. Constitutional: Non-toxic appearing. No acute distress. Well-developed and well-nourished. HEENT: Normocephalic and atraumatic. External auditory canals without erythema or edema bilaterally. Dry mucous membranes. No pharyngeal erythema or exudates. Skin: Warm and dry. No rashes or lesions noted. Neck: Full and painless range of motion. No cervical lymphadenopathy. Cardio: Regular rate and rhythm. No murmurs, gallops, or rubs. No lower extremity edema. No JVD. Pulmonary: No respiratory distress. No accessory muscle usage. Musculoskeletal: Normal range of motion in joints throughout the body. No deformity or other signs of injury. no tenderness on palpation to arms, thighs, upper back. Gait normal, rises and sits without hesitation Neuro: Alert and oriented x4. Cranial nerves 2-12 grossly intact. No focal deficits appreciated. Results Reviewed Results Reviewed: Laboratory Tests 04/21/23 06/22/23 12:41 12:54 WBC 13.3 H 9.7 RBC 4.73 D 4.65 Hgb 12.1 12.4 Hct 37.3 ESR 8 C-Reactive Protein 1.04 H Assessment & Plan Assessment & Plan (1) Polymyalgia rheumatica: Code(s): M35.3 - Polymyalgia rheumatica Category: Medical (2) Anemia: Code(s): D64.9 - Anemia, unspecified Category: Medical Qualifiers: Anemia type: iron deficiency Iron deficiency anemia type: inadequate dietary iron intake Qualified Code(s): D50.8 - Other iron deficiency anemias Plan #PMR with it seems fairly good control of inflammatory symptoms. ESR/CRP continues to improve with ESR at goal, CRP mildly elevated. There are no signs of giant cell arteritis. We will continue taper the prednisone by 1 mg each month. We will recheck ESR/CRP/CBC before next visit. Patient knows to call office if PMR symptoms return on lower doses. We discussed that if symptoms return on lower doses she will go back to the previous dose for 2 weeks and then proceed again with taper. #Anemia:She has follow-up with her primary doctor on the iron deficiency anemia planned and is improved. She will continue on ferrous sulfate 325 mg daily. Follow-up in 3 months with labs 1 week before next visit. I spent 25 minutes reviewing chart, evaluating patient and documenting Orders: Orders Complete Blood Count Auto Diff 3 Months M35.3 - Polymyalgia rheumatica C Reactive Protein 3 Months M35.3 - Polymyalgia rheumatica Erythrocyte Sedimentation Rate 3 Months M35.3 - Polymyalgia rheumatica Comprehensive Met. Panel 3 Months M35.3 - Polymyalgia rheumatica
[2023-06-24 13:56] VITALS: BP 128/70; PULSE 83; O2SAT 97; BMI 35.2
== END 2023-06-24 14:22 | disposition home or self-care (01) ==
PROVIDERS: PCP Internal Medicine; Visit Provider Nurse Practitioner Family
DX: M35.3 Polymyalgia rheumatica (principal); D50.8 Other iron deficiency anemias
CPT/HCPCS: 99213

== ENCOUNTER → 2023-06-24 13:30 | Outpatient (BNVA) | payer OTHER, SELFPAY | PROVIDERS: PCP Internal Medicine; Visit Provider Nurse Practitioner Family | DX: M35.3 Polymyalgia rheumatica (principal); D64.9 Anemia, unspecified; Z79.52 Long term (current) use of systemic steroids | CPT/HCPCS: 99212 ==

== ENCOUNTER 2023-09-24 11:53 | Outpatient (REF) | payer OTHER, SELFPAY ==
[2023-09-24 12:14] LABS: MANUAL DIFF FLAG NO
[2023-09-24 12:27] LABS: Basophils Absolute Auto 0.1 X10*3/uL (0.0-0.2); Basophils Percent Auto 0.6 % (0-2); Eosinophils Absolute Auto 0.1 X10*3/uL (0.0-0.4); Eosinophils Percent Auto 0.9 % (0-4); Hematocrit 36.8 % (37.0-47.0); Hemoglobin 12.2 g/dl (12.0-16.0); Imm Gran Abs Auto 0.05 X10*3/uL (0.00-0.03); Imm Gran Pct Auto 0.5 % (0.0-0.4); Lymphocytes Absolute Auto 1.7 X10*3/uL (1.2-4.9); Lymphocytes Percent Auto 18.1 % (20-40); Mean Corpuscular HGB Conc 33.2 g/dl (31.0-35.0); Mean Corpuscular Hemoglobin 27.7 pg (27.0-33.0); Mean Corpuscular Volume 83.4 fL (80.0-98.0); Mean Platelet Volume 9.4 fL (9.4-12.3); Monocytes Absolute Auto 0.9 X10*3/uL (0.1-1.2); Monocytes Percent Auto 8.9 % (2-11); Neutrophils Absolute Auto 6.7 x10*3/uL (2.0-8.3); Platelet Count 334 X10*3/uL (160-400); Red Blood Count 4.41 X10*6/uL (4.20-5.50); Red Cell Distribution Width 13.6 % (11.0-16.0); White Blood Count 9.5 X10*3/uL (4.8-10.8)
[2023-09-24 13:03] LABS: Erythrocyte Sedimentation Rate 7 MM/HR (0-20)
[2023-09-24 14:48] LABS: Anion Gap 15 (12-20); Blood Urea Nitrogen 11 mg/dL (9-16); Calcium 9.6 mg/dL (8.4-10.2); Carbon Dioxide 24 mmol/L (22-29); Chloride 99 mmol/L (96-108); Estimated Glomerular Filt Rate > 60; Glucose Random 101 mg/dL (60-115); Potassium 4.3 mmol/L (3.3-5.1); Sodium 134 mmol/L (135-145)
[2023-09-24 14:49] LABS: Alanine Aminotransferase 29 U/L (0-31); Albumin Level 4.4 g/dL (3.5-5.0); Alkaline Phosphatase 80 U/L (39-117); Aspartate Amino Transferase 32 U/L (5-31); Bilirubin Total 0.3 mg/dL (0.0-1.0); C Reactive Protein 1.59 mg/dL (< or = 0.50); Total Protein 7.5 g/dL (6.5-8.0)
== END 2023-09-24 11:54 | disposition home or self-care (01) ==
LOC: HO.LAB 11:53
PROVIDERS: PCP Internal Medicine; Visit Provider Nurse Practitioner Family
DX: M35.3 Polymyalgia rheumatica (principal)
CPT/HCPCS: 36415; 80053; 85025; 85652; 86140

== ENCOUNTER 2023-09-28 12:49 | Outpatient (AMB) | payer OTHER, SELFPAY ==
[2023-09-28 12:55] VITALS: BP 122/68; PULSE 57; O2SAT 99; BMI 35.2
--- NOTE | 2023-09-28 12:55 | A.OFFVIS_ITS ---
Vital Signs 09/28/23 12:55 Height 5 ft 2.5 in Weight 195 lb 5.273 oz BMI 35.2 BP 122/68 Blood Pressure Location Lt brachial Position Sitting Pulse 57 Pulse Source Pulse Oximeter Pulse Oximetry (%) 99 Oxygen Delivery Method Room Air Intake Visit Reasons: PMR/CM Intake Note: Patient was last seen on 06/19/2023, here for follow up on PMR. Accompanied by: Self / Same As Patient Allergies Sulfa (Sulfonamide Antibiotics) Allergy (Intermediate, Verified 09/28/23 12:58) Rash sulfamethoxazole [From Bactrim] Allergy (Intermediate, Verified 09/28/23 12:58) Rash trimethoprim [From Bactrim] Allergy (Intermediate, Verified 09/28/23 12:58) Rash rosuvastatin Adverse Reaction (Severe, Verified 09/28/23 12:58) Joint Pain Medication List - Last Reconciled 09/28/23 by Monserrat Bernardo MD atenolol 12.5 mg PO BID clonazepam 0.5 mg PO TID PRN CPAP As directed ferrous sulfate (Feosol) 325 mg PO DAILY hydralazine 25 mg PO BID levothyroxine 100 mcg PO DAILY omeprazole 20 mg PO DAILY prednisone 5 mg PO DAILY prednisone Take 4 tablets per day x 30 days, 3 tablets per day x 30 days, 2 tablets per day x 30 days. HPI Comments Details: This is a 68-year-old female with PMR who presents for follow-up. She stated that she had a flare-up when she reduced her prednisone below 3 mg, she went back to 5 mg daily with resolution of symptoms then she has been slowly tapering her prednisone down to 2 mg. She has been on 2 mg daily for the last 10 days or so. She denies any recurrent symptoms. Denies any headaches or vision changes. [facility], [facility] Medical History Paresthesias Vertigo HTN (hypertension) Arthritis Anemia Hypothyroidism Vertigo Anxiety Back pain Social History Household Members: Spouse Housing: House Are you a primary health care sanitary technician to a significant other at home: No Do you presently have visiting nurse or other home services: No 75 years or older and lives alone: No Alcohol intake: current Alcohol intake frequency: a few times a week Alcohol type: wine Patient Tobacco Use Status: Former Tobacco user Years Smoked: Quit 25 years ago e-Cigarette/Vaping Use: Never Used service: No Current occupational status: retired Review of Systems Const Denies fatigue Musc Denies arthralgias, Denies joint swelling and Denies stiffness Endo Denies fatigue Physical Exam Vital Signs: Last Vital Signs Pulse 57 09/28/23 12:55 BP 122/68 09/28/23 12:55 Pulse Ox 99 09/28/23 12:55 Oxygen Delivery Method Room Air 09/28/23 12:55 BMI result Body Mass Index 35.2 Const General: cooperative, healthy appearing and comfortable Nutritional Appearance: obese morbidly obese Orientation/consciousness: patient oriented x3 Limitations: no limitations HEENT Head: Yes normocephalic and Yes atraumatic Mouth: moist mucous membranes Resp Effort & Inspection: normal respiratory effort and able to speak in complete sentences Auscultation: clear to auscultation bilaterally Cardio Rate: regular rate Skin General skin exam: no rashes or lesions noted Neuro General: patient oriented x3 Extrem Other: No active synovitis Normal nailfold capillaroscopy Normal range of motion of elbows, shoulders without pain Negative rotator cuff provocative maneuvers and negative Speed's test b ilaterally Assessment & Plan Assessment & Plan (1) Polymyalgia rheumatica: Comment: onset around 10/2022 elevated ESR and CRP. ++DAREN Code(s): M35.3 - Polymyalgia rheumatica Category: Medical Plan: This is in 68-year-old female who presents for PMR follow-up. This is her 1st visit with me. She used to follow-up with Lety Melchor. Patient stated that she had a flare-up when she lowered her prednisone from 3 mg daily to 2 mg daily. Prednisone was bumped back to 5 mg daily with resolution of symptoms, she has been tapering her prednisone down to 2 mg daily. She has been on 2 mg daily for the last 10 days with good control of symptoms Advised patient to continue with 2 mg daily for a total of one-month then alternate 1 mg daily with 2 mg daily for 1-2 weeks until she feels well on 1 mg, then stay on 1 mg daily for one-month Labs before next visit in 10-12 weeks (2) Iron deficiency anemia: Code(s): D50.9 - Iron deficiency anemia, unspecified Category: Medical Plan: Follow-up PCP (3) DAREN positive: Comment: 2021: 1:1280, homogeneous Code(s): R76.8 - Other specified abnormal immunological findings in serum Category: Medical Plan: Will check further sub serologies. Can be drug-induced from hydralazine Plan I spent 47 minutes reviewing patient's chart, reviewing outside EMR, evaluating patient, ordering diagnostic workup, counseling patient and documenting in the chart Orders: Orders Immunoglobulin A 10 Weeks D50.9 - Iron deficiency anemia, unspecified Transglutaminase Ab IgG 10 Weeks D50.9 - Iron deficiency anemia, unspecified Anti Extractable Nuclear Ag 10 Weeks M32.9 - Systemic lupus erythematosus, unspecified Anti DNA DS Antibody 10 Weeks M32.9 - Systemic lupus erythematosus, unspecified Complement C4 10 Weeks M32.9 - Systemic lupus erythematosus, unspecified C Reactive Protein 10 Weeks M32.9 - Systemic lupus erythematosus, unspecified DNA Double Stranded-Crithidia 10 Weeks M32.9 - Systemic lupus erythematosus, unspecified Protein Creatinine Ratio, Ur 10 Weeks M32.9 - Systemic lupus erythematosus, uns pecified UA w Microscopic 10 Weeks M32.9 - Systemic lupus erythematosus, unspecified Complete Blood Count Auto Diff 10 Weeks M32.9 - Systemic lupus erythematosus, unspecified Protein Electrophoresis, Serum 10 Weeks M32.9 - Systemic lupus erythematosus, unspecified Cyclic Citrullinated Peptide 10 Weeks M25.50 - Pain in unspecified joint Endomysial IgA rflx Titer 10 Weeks D50.9 - Iron deficiency anemia, unspecified Complement C3 10 Weeks M32.9 - Systemic lupus erythematosus, unspecified Erythrocyte Sedimentation Rate 10 Weeks M32.9 - Systemic lupus erythematosus, unspecified Sjogren's Antibodies 10 Weeks M32.9 - Systemic lupus erythematosus, unspecified Comprehensive Met. Panel 10 Weeks M32.9 - Systemic lupus erythematosus, unspecified Hepatitis A,B,C Profile 10 Weeks Z11.59 - Encounter for screening for other viral diseases Immunofixation Pnl, Serum 10 Weeks M32.9 - Systemic lupus erythematosus, unspecified T Spot TB 10 Weeks Z11.7 - Encounter for testing for latent tuberculosis infection Histone Antibody 10 Weeks L93.2 - Other local lupus erythematosus, T50.905A - Adverse effect of unspecified drugs, medicaments and biological substances, initial encounter Thyroglobulin Antibodies 10 Weeks E03.9 - Hypothyroidism, unspecified Thyroid Peroxidase Antibodies 10 Weeks E03.9 - Hypothyroidism, unspecified Coding Level of Care Code Est Pt Level 5 (75800) Complex EM visit Add On G2211 Diagnoses Polymyalgia rheumatica M35.3 Iron deficiency anemia D50.9 DAREN positive R76.8
== END 2023-09-28 13:46 | disposition home or self-care (01) ==
PROVIDERS: PCP Internal Medicine; Visit Provider Student in an Organized Health Care Education/Training Program
DX: M35.3 Polymyalgia rheumatica (principal); D50.9 Iron deficiency anemia, unspecified; R76.8 Other specified abnormal immunological findings in serum
CPT/HCPCS: 99215; G2211

== ENCOUNTER → 2023-09-28 12:49 | Outpatient (BNVA) | payer OTHER, SELFPAY | PROVIDERS: PCP Internal Medicine; Visit Provider Student in an Organized Health Care Education/Training Program | DX: M35.3 Polymyalgia rheumatica (principal); D50.9 Iron deficiency anemia, unspecified; R76.8 Other specified abnormal immunological findings in serum; Z79.52 Long term (current) use of systemic steroids | CPT/HCPCS: 99212 ==

== ENCOUNTER 2023-12-02 11:57 | Outpatient (REF) | payer OTHER, SELFPAY ==
[2023-12-02 12:32] LABS: MANUAL DIFF FLAG NO
[2023-12-02 13:20] LABS: Appearance Urine Clear; Color Urine Yellow; Glucose Urine UA Negative (Negative); Leukocyte Esterase Urine Moderate (2+) (Negative); Nitrite Urine Negative (Negative); Specific Gravity - Urine <= 1.005 (1.005-1.025); UMIC TRIGGER UA YES; Urine Blood Negative (Negative); Urine Ketones Negative (Negative); Urine Protein Negative (Neg-Trace)
[2023-12-02 13:31] LABS: Bacteria Urine None Seen (None Seen); Hyaline Casts Urine 0-2 /LPF (0-2); RBC Urine 0-2 /HPF (0-2); Squamous Epithelial Cell Urine 0-2 /HPF (0-2); WBC Urine 0-5 /HPF (0-5)
[2023-12-02 14:00] LABS: Basophils Absolute Auto 0.1 X10*3/uL (0.0-0.2); Basophils Percent Auto 0.7 % (0-2); Eosinophils Absolute Auto 0.1 X10*3/uL (0.0-0.4); Eosinophils Percent Auto 0.9 % (0-4); Hemoglobin 12.8 g/dl (12.0-16.0); Imm Gran Abs Auto 0.05 X10*3/uL (0.00-0.03); Imm Gran Pct Auto 0.5 % (0.0-0.4); Lymphocytes Absolute Auto 3.1 X10*3/uL (1.2-4.9); Lymphocytes Percent Auto 29.4 % (20-40); Mean Corpuscular HGB Conc 32.8 g/dl (31.0-35.0); Mean Corpuscular Hemoglobin 27.4 pg (27.0-33.0); Mean Corpuscular Volume 83.3 fL (80.0-98.0); Monocytes Percent Auto 9.3 % (2-11); Neutrophils Absolute Auto 6.2 x10*3/uL (2.0-8.3); Neutrophils Percent Auto 59.2 % (45-73); Platelet Count 395 X10*3/uL (160-400); Red Blood Count 4.68 X10*6/uL (4.20-5.50); Red Cell Distribution Width 13.6 % (11.0-16.0); White Blood Count 10.4 X10*3/uL (4.8-10.8)
[2023-12-02 14:45] LABS: Alanine Aminotransferase 30 U/L (0-31); Albumin Level 4.5 g/dL (3.5-5.0); Alkaline Phosphatase 78 U/L (39-117); Anion Gap 15 (12-20); Aspartate Amino Transferase 35 U/L (5-31); Bilirubin Total 0.4 mg/dL (0.0-1.0); Blood Urea Nitrogen 7 mg/dL (9-16); C Reactive Protein 1.35 mg/dL (< or = 0.50); Carbon Dioxide 23 mmol/L (22-29); Chloride 96 mmol/L (96-108); Estimated Glomerular Filt Rate > 60; Glucose Random 96 mg/dL (60-115); Sodium 130 mmol/L (135-145); Total Protein 7.7 g/dL (6.5-8.0)
[2023-12-02 14:48] LABS: Erythrocyte Sedimentation Rate 5 MM/HR (0-20)
[2023-12-02 14:55] LABS: Creatinine Urine 19.91 mg/dL; Total Protein Urine Random < 7 mg/dL (<12)
[2023-12-03 04:26] LABS: HBS Num1 0.64 mIU/mL (0-7.99); HBc Num1 0.14 S/CO (0.00-0.79); HBsAGNum1 0.27 S/CO (0.00-0.99); Hepatitis A Antibody IgM 0.18 Index (0-0.79); Hepatitis B Core Antibody Nonreactive (Nonreactive); Hepatitis B Surface Antigen Negative (Negative); ~Hepatitis A Antibody IgM Nonreactive (Nonreactive); ~Hepatitis B Surface Antibody NONREACTIVE (Nonreactive); ~Hepatitis C Antibody Nonreactive (Nonreactive)
[2023-12-03 14:27] LABS: Complement C3 145 mg/dL (83-193)
[2023-12-03 18:34] LABS: Thyroid Peroxidase Antibodies 76 IU/mL (<9)
[2023-12-03 18:58] LABS: IgA 407 mg/dL (70-320); IgG 1171 mg/dL (600-1540); IgM 69 mg/dL (50-300)
[2023-12-03 19:34] LABS: Thyroglobulin Antibodies <1 IU/mL (< or = 1)
[2023-12-03 20:38] LABS: Anti DNA DS Antibody <1 IU/mL; Antibody to SS-A Antigen <1.0 NEG AI (<1.0 NEG); Antibody to SS-B Antigen <1.0 NEG AI (<1.0 NEG); SM/Ribonucleoprotein Ab <1.0 NEG AI (<1.0 NEG); Smith Protein <1.0 NEG AI (<1.0 NEG); Transglutaminase Ab IgG <1.0 U/mL
[2023-12-05 05:39] LABS: TS Negative Control Passed; TS Panel A 0; TS Panel B 0; TS Positive Control Passed; TSpotTB Negative (Negative)
[2023-12-07 12:49] LABS: Prot Elec - Albumin 4.4 g/dL (3.8-4.8); Prot Elec - Alpha1 0.3 g/dL (0.2-0.3); Prot Elec - Alpha2 0.7 g/dL (0.5-0.9); Prot Elec - Beta 1 0.5 g/dL (0.4-0.6); Prot Elec - Beta 2 0.5 g/dL (0.2-0.5); Prot Elec - Total Protein 7.4 g/dL (6.1-8.1)
[2023-12-07 17:33] LABS: DNAds, Crithidia Antibody Negative (Negative); Histone Antibody <1.0 U (<1.0)
[2023-12-07 23:54] LABS: Endomysial IgA Antibody Negative (Negative)
[2023-12-08 06:28] LABS: Cyclic Citrullinated Peptide 81 UNITS
== END 2023-12-02 11:58 | disposition home or self-care (01) ==
LOC: HO.LAB 11:57
PROVIDERS: PCP Internal Medicine; Visit Provider Student in an Organized Health Care Education/Training Program
DX: D50.9 Iron deficiency anemia, unspecified (principal); Z11.59 Encounter for screening for other viral diseases; Z11.7 Encounter for testing for latent tuberculosis infection; L93.2 Other local lupus erythematosus; T50.905A Adverse effect of unspecified drugs, medicaments and biological substances, initial encounter; E03.9 Hypothyroidism, unspecified; M25.50 Pain in unspecified joint
CPT/HCPCS: 36415; 80053; 81001; 82570; 82784; 83516; 84156; 84165; 85025; 85652; 86140; 86160; 86200; 86225; 86231; 86235; 86255; 86334; 86364; 86376; 86481; 86704; 86706; 86709; 86800; 86803; 87340

== ENCOUNTER 2023-12-07 12:27 | Outpatient (AMB) | payer OTHER, SELFPAY ==
--- NOTE | 2023-12-07 12:33 | MHC.OFFVIS ---
Vital Signs 12/07/23 12:42 Height 5 ft 2.5 in Weight 191 lb 9.307 oz BMI 34.5 BP 122/80 Blood Pressure Location Rt brachial Position Sitting Pulse 66 Pulse Source Pulse Oximeter Pulse Oximetry (%) 96 Oxygen Delivery Method Room Air Intake Visit Reasons: PMR/CM Intake Note: Patient presents for PMR. Allergies Sulfa (Sulfonamide Antibiotics) Allergy (Intermediate, Verified 12/07/23 12:36) Rash sulfamethoxazole [From Bactrim] Allergy (Intermediate, Verified 12/07/23 12:36) Rash trimethoprim [From Bactrim] Allergy (Intermediate, Verified 12/07/23 12:36) Rash rosuvastatin Adverse Reaction (Severe, Verified 12/07/23 12:36) Joint Pain Medication List - Last Reconciled 12/07/23 by Monserrat Bernardo MD atenolol 12.5 mg PO BID clonazepam 0.5 mg PO TID PRN CPAP As directed ferrous sulfate (Feosol) 325 mg PO DAILY hydralazine 25 mg PO BID levothyroxine 100 mcg PO DAILY omeprazole 20 mg PO DAILY HPI Comments Details: This is a 68-year-old female with PMR who presents for follow-up. Has been tapering down her prednisone slowly. She took prednisone 1 mg daily for 1 month. She discontinued it exactly 1 week ago. Five days ago she started having cold symptoms with fevers, runny nose and generalized fatigue. He was also having some increasing stiffness of her thighs and shoulders associated with fatigue. [facility] Medical History Paresthesias Vertigo HTN (hypertension) Arthritis Anemia Hypothyroidism Vertigo Anxiety Back pain Family History Brother Liver disease Cancer Sister Stroke Diabetes Sister Cancer Rheumatoid arthritis Sister Vitiligo Rheumatoid arthritis Daughter Vitiligo Social History Household Members: Spouse Housing: House Are you a primary home care giver to a significant other at home: No Do you presently have visiting nurse or other home services: No 75 years or older and lives alone: No Alcohol intake: current Alcohol intake frequency: a few times a week Alcohol type: wine Patient Tobacco Use Status: Former Tobacco user Years Smoked: Quit 25 years ago e-Cigarette/Vaping Use: Never Used service: No Current occupational status: retired Review of Systems Const Reports fatigue Musc Reports arthralgias, Denies joint swelling and Reports stiffness Endo Reports fatigue Physical Exam Vital Signs: Last Vital Signs BP 122/80 12/07/23 12:42 BMI result Body Mass Index 34.5 Const General: cooperative, healthy appearing and comfortable Nutritional Appearance: obese morbidly obese Orientation/consciousness: patient oriented x3 Limitations: no limitations HEENT Head: Yes normocephalic and Yes atraumatic Mouth: moist mucous membranes Resp Effort & Inspection: normal respiratory effort and able to speak in complete sentences Auscultation: clear to auscultation bilaterally Cardio Rate: regular rate Neuro General: patient oriented x3 Extrem Other: No active synovitis Normal nailfold capillaroscopy Normal range of motion of elbows, shoulders without pain Negative rotator cuff provocative maneuvers and negative Speed's test bilaterally Assessment & Plan Assessment & Plan (1) Polymyalgia rheumatica: Comment: onset around 10/2022 elevated ESR and CRP. ++DAREN Code(s): M35.3 - Polymyalgia rheumatica Category: Medical Plan: This is in 68-year-old female who presents for PMR follow-up. She has tapered herself off of prednisone about a week ago but 5 days ago she started having cold symptoms with fevers, generalized fatigue, body aches, nasal congestion. Symptoms are improving. It was hard to assess her PMR when she is recovering from flu-like illness. Continue to watch patient off prednisone. Labs before next visit in 10 weeks (2) DAREN positive: Comment: 2021: 1:1280, homogeneous Code(s): R76.8 - Other specified abnormal immunological findings in serum Category: Medical Plan: Most sub serologies are negative except for positive TPO antibody. Patient has known history of hypothyroidism and takes levothyroxine regularly. Celiac antibodies pending (3) Iron deficiency anemia: Code(s): D50.9 - Iron deficiency anemia, unspecified Category: Medical Plan: Normal hemoglobin on recent labs. Patient however has been taking iron supplements. The celiac disease question was raised. She states that she had her daughter has gluten sensitivity. Patient herself has lowered her intake of gluten thinning products and has noticed better regulate her bowel movement. She has an appointment with her airbrush artist technical soon. Advised patient to discuss with them (4) Hyponatremia: Code(s): E87.1 - Hypo-osmolality and hyponatremia Category: Medical Plan: Intermittent and mild. If patient continues to have hyponatremia in the next set of labs. I will refer her to Nephrology Plan I spent 47 minutes reviewing patient's chart, reviewing outside EMR, evaluating patient, ordering diagnostic workup, counseling patient and documenting in the chart Orders: Orders Erythrocyte Sedimentation Rate 10 Weeks M35.3 - Polymyalgia rheumatica Complete Blood Count Auto Diff 10 Weeks M35.3 - Polymyalgia rheumatica Comprehensive Met. Panel 10 Weeks M35.3 - Polymyalgia rheumatica C Reactive Protein 10 Weeks M35.3 - Polymyalgia rheumatica Coding Level of Care Code Est Pt Level 5 (97160) Complex EM visit Add On G2211 Diagnoses Polymyalgia rheumatica M35.3 DAREN positive R76.8 Iron deficiency anemia D50.9 Hyponatremia E87.1
[2023-12-07 12:42] VITALS: BP 122/80; PULSE 66; O2SAT 96; BMI 34.5
== END 2023-12-07 13:07 | disposition home or self-care (01) ==
PROVIDERS: PCP Internal Medicine; Visit Provider Student in an Organized Health Care Education/Training Program
DX: M35.3 Polymyalgia rheumatica (principal); R76.8 Other specified abnormal immunological findings in serum; D50.9 Iron deficiency anemia, unspecified; E87.1 Hypo-osmolality and hyponatremia
CPT/HCPCS: 99215; G2211

== ENCOUNTER → 2023-12-07 12:27 | Outpatient (BNVA) | payer OTHER, SELFPAY | PROVIDERS: PCP Internal Medicine; Visit Provider Student in an Organized Health Care Education/Training Program | DX: M35.3 Polymyalgia rheumatica (principal); R76.8 Other specified abnormal immunological findings in serum; E87.1 Hypo-osmolality and hyponatremia; D50.9 Iron deficiency anemia, unspecified; Z79.52 Long term (current) use of systemic steroids | CPT/HCPCS: 99212 ==

== ENCOUNTER 2024-02-07 11:24 | Outpatient (REF) | payer OTHER, SELFPAY ==
[2024-02-07 11:57] LABS: MANUAL DIFF FLAG NO
[2024-02-07 12:20] LABS: Basophils Absolute Auto 0.1 X10*3/uL (0.0-0.2); Eosinophils Absolute Auto 0.6 X10*3/uL (0.0-0.4); Eosinophils Percent Auto 5.3 % (0-4); Hemoglobin 13.5 g/dl (12.0-16.0); Imm Gran Abs Auto 0.03 X10*3/uL (0.00-0.03); Imm Gran Pct Auto 0.3 % (0.0-0.4); Lymphocytes Percent Auto 27.9 % (20-40); Mean Corpuscular HGB Conc 32.9 g/dl (31.0-35.0); Mean Corpuscular Hemoglobin 26.2 pg (27.0-33.0); Mean Corpuscular Volume 79.5 fL (80.0-98.0); Mean Platelet Volume 10.3 fL (9.4-12.3); Monocytes Absolute Auto 0.9 X10*3/uL (0.1-1.2); Monocytes Percent Auto 8.3 % (2-11); Neutrophils Absolute Auto 6.2 x10*3/uL (2.0-8.3); Neutrophils Percent Auto 57.2 % (45-73); Platelet Count 431 X10*3/uL (160-400); Red Blood Count 5.16 X10*6/uL (4.20-5.50); Red Cell Distribution Width 12.8 % (11.0-16.0); White Blood Count 10.8 X10*3/uL (4.8-10.8)
[2024-02-07 13:06] LABS: Erythrocyte Sedimentation Rate 20 MM/HR (0-20)
[2024-02-07 13:19] LABS: Alanine Aminotransferase 25 U/L (0-31); Albumin Level 4.2 g/dL (3.5-5.0); Alkaline Phosphatase 68 U/L (39-117); Anion Gap 11 (12-20); Aspartate Amino Transferase 27 U/L (5-31); Bilirubin Total 0.2 mg/dL (0.0-1.0); Blood Urea Nitrogen 8 mg/dL (9-16); C Reactive Protein 1.18 mg/dL (< or = 0.50); Calcium 9.5 mg/dL (8.4-10.2); Carbon Dioxide 23 mmol/L (22-29); Chloride 102 mmol/L (96-108); Estimated Glomerular Filt Rate > 60; Glucose Random 106 mg/dL (60-115); Sodium 132 mmol/L (135-145); Total Protein 7.6 g/dL (6.5-8.0)
== END 2024-02-07 11:25 | disposition home or self-care (01) ==
LOC: HO.LAB 11:24
PROVIDERS: PCP Internal Medicine; Visit Provider Student in an Organized Health Care Education/Training Program
DX: M35.3 Polymyalgia rheumatica (principal)
CPT/HCPCS: 36415; 80053; 85025; 85652; 86140

== ENCOUNTER 2024-02-15 12:25 | Outpatient (AMB) | payer OTHER, SELFPAY ==
--- NOTE | 2024-02-15 12:29 | A.OFFVIS_ITS ---
Vital Signs 02/15/24 12:40 Height 5 ft 2.5 in Weight 174 lb 9.698 oz BMI 31.4 BP 140/74 H Blood Pressure Location Lt brachial Position Sitting Pulse 63 Pulse Source Pulse Oximeter Pulse Oximetry (%) 97 Oxygen Delivery Method Room Air Intake Visit Reasons: PMR/CM Intake Note: Patient presents for PMR. Allergies hydralazine Allergy (Severe, Verified 02/15/24 12:35) Shortness of Breath Sulfa (Sulfonamide Antibiotics) Allergy (Intermediate, Verified 02/15/24 12:32) Rash sulfamethoxazole [From Bactrim] Allergy (Intermediate, Verified 02/15/24 12:32) Rash trimethoprim [From Bactrim] Allergy (Intermediate, Verified 02/15/24 12:32) Rash rosuvastatin Adverse Reaction (Severe, Verified 02/15/24 12:32) Joint Pain Medication List - Last Reconciled 02/15/24 by Monserrat Bernardo MD atenolol 12.5 mg PO BID cetirizine 10 mg PO BEDTIME clonazepam 0.5 mg PO TID PRN CPAP As directed levothyroxine 100 mcg PO DAILY prednisone 10 mg PO DAILY spironolactone 50 mg PO DAILY HPI Comments Details: This is a 68-year-old female with PMR who presents for follow-up. She is s/p surgery for esophageal hernia repair. Per patient she is recovering well. She is on a liquid diet and will be seeing her surgeon tomorrow to do a repeat barium swallow and hopefully start a regular diet. She states that perioperatively she had an endoscopy. Per patient she was found to have celiac disease, Crohn's disease and positive for H pylori, records unavailable to me. With regards to her joints, she is doing reasonably well continues to have intermittent aches and pains but no significant joint pain swelling or stiffness. She takes 1 or 2 Tylenol Arthritis as needed Over the last year she has been having recurrent itchy rashes. One episode she had significant rash associated with joint pain and hypertension, she went to the emergency room. It was attributed to hydralazine. Hydralazine was since discontinued. She was just started on prednisone 10 mg daily by her PCP yesterday. [facility] Medical History Paresthesias Vertigo HTN (hypertension) Arthritis Anemia Hypothyroidism Vertigo Anxiety Back pain Surgical History H/O esophageal hernia repair Family History Brother Liver disease Cancer Sister Stroke Diabetes Sister Cancer Rheumatoid arthritis Sister Vitiligo Rheumatoid arthritis Daughter Vitiligo Social History Household Members: Spouse Housing: House Are you a primary wound care physician to a significant other at home: No Do you presently have visiting nurse or other home services: No 75 years or older and lives alone: No Alcohol intake: current Alcohol intake frequency: a few times a week Alcohol type: wine Patient Tobacco Use Status: Former Tobacco user Years Smoked: Quit 25 years ago e-Cigarette/Vaping Use: Never Used service: No Current occupational status: retired Review of Systems Musc Reports arthralgias and Denies joint swelling Physical Exam Vital Signs: Last Vital Signs Pulse 63 02/15/24 12:40 BP 140/74 H 02/15/24 12:40 Pulse Ox 97 02/15/24 12:40 Oxygen Delivery Method Room Air 02/15/24 12:40 BMI result Body Mass Index 31.4 Const General: cooperative, healthy appearing and comfortable Nutritional Appearance: obese morbidly obese Orientation/consciousness: patient oriented x3 Limitations: no limitations HEENT Head: Yes normocephalic and Yes atraumatic Mouth: moist mucous membranes Resp Effort & Inspection: normal respiratory effort and able to speak in complete sen tences Auscultation: clear to auscultation bilaterally Cardio Rate: regular rate Neuro General: patient oriented x3 Extrem Other: No active synovitis today Normal nailfold capillaroscopy Normal range of motion of elbows, shoulders without pain Negative rotator cuff provocative maneuvers and negative Speed's test bilaterally Assessment & Plan Assessment & Plan (1) Polymyalgia rheumatica: Comment: onset around 10/2022 elevated ESR and CRP. ++DAREN Code(s): M35.3 - Polymyalgia rheumatica Category: Medical Plan: This is in 68-year-old female who presents for PMR follow-up. Prednisone has been tapered off for the last few months but just restarted at 10 mg a day by PCP for an allergic reaction. On exam today there is no active synovitis. Continues to have intermittent joint pains, treated with Tylenol Arthritis. Most recent labs showed a positive anti CCP antibody. 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 We discussed treating it, discussed hydroxychloroquine. Discussed risk of retinopathy and need for regular eye exam Per patient her recent endoscopy showed H pylori, celiac disease as well as Crohn's disease. Records unavailable to me. Will request records from patient's [facility]. Patient will think about hydroxychloroquine. Labs before next visit in 3 months (2) DAREN positive: Comment: 2021: 1:1280, homogeneous Code(s): R76.8 - Other specified abnormal immunological findings in serum Category: Medical Plan: Most sub serologies are negative except for positive TPO antibody. Patient has known history of hypothyroidism and takes levothyroxine regularly. Celiac disease antibodies pending (3) Iron deficiency anemia: Code(s): D50.9 - Iron deficiency anemia, unspecified Category: Medical Plan: Per patient, endoscopy showed celiac disease. Antibodies are negative. Request records from [employer] [facility] Check IBD panel Plan I spent 27 minutes reviewing patient's chart, evaluating patient, ordering diagnostic workup, counseling patient and documenting in the chart Orders: Orders [facility] SGI 3 Months K50.90 - Crohn's disease, unspecified, without complications Complete Blood Count Auto Diff 3 Months M35.3 - Polymyalgia rheumatica Comprehensive Met. Panel 3 Months M35.3 - Polymyalgia rheumatica C Reactive Protein 3 Months M35.3 - Polymyalgia rheumatica Erythrocyte Sedimentation Rate 3 Months M35.3 - Polymyalgia rheumatica Coding Level of Care Code Est Pt Level 4 (51754) Diagnoses Polymyalgia rheumatica M35.3 DAREN positive R76.8 Iron deficiency anemia D50.9
[2024-02-15 12:40] VITALS: BP 140/74; PULSE 63; O2SAT 97; BMI 31.4
== END 2024-02-15 13:09 | disposition home or self-care (01) ==
PROVIDERS: PCP Internal Medicine; Visit Provider Student in an Organized Health Care Education/Training Program
DX: M35.3 Polymyalgia rheumatica (principal); R76.8 Other specified abnormal immunological findings in serum; D50.9 Iron deficiency anemia, unspecified
CPT/HCPCS: 99214

== ENCOUNTER → 2024-02-15 12:25 | Outpatient (BNVA) | payer OTHER, SELFPAY | PROVIDERS: PCP Internal Medicine; Visit Provider Student in an Organized Health Care Education/Training Program | DX: M35.3 Polymyalgia rheumatica (principal); R76.8 Other specified abnormal immunological findings in serum; D50.9 Iron deficiency anemia, unspecified | CPT/HCPCS: 99212 ==

== ENCOUNTER 2024-04-14 14:25 | Outpatient (REF) | payer OTHER, SELFPAY ==
--- OUTSIDE RECORDS SUMMARY | 2024-04-14 14:41 | XMS_ITS | Clinical Summary ---
Author Organization [facility] Address [address] [place] [id number] Care Team Providers Care Sales Service Route Manager Name Role Phone Urvashi Paredes NP Primary Care Provider [phone] Allergies Active Allergy Reactions Criticality Noted Date Comments Sulfamethoxazole-Trime thoprim 08/10/2020 Sulfa Antibiotics Other (See Comments) 10/13/19 16 Pt is unsure of what her reactions is but no that she has been told that she is. Medications Medication Sig Dispensed Refills Start Date End Date Status omeprazole (PRILOSEC) 20 MG capsule Take 20 mg by mouth daily. 0 Active levothyroxine (SYNTHROID, LEVOXYL) tablet 100 mcg Take 100 mcg by mouth every morning on an empty stomach. 0 Active losartan (COZAAR) tablet 50 mg losartan 50 mg tablet 0 Active clonazePAM (KlonoPIN) 0.5 MG tablet clonazepam 0.5 mg tablet 0 02/25/2012 Active amLODIPine (NORVASC) tablet 5 mg amlodipine 5 mg tablet 0 Active Social History Tobacco Use Types Packs/Day Years Used Date Smoking Tobacco: Never Smokeless Tobacco: Never Alcohol Use Standard Drinks/Week Comments Yes 0 (1 standard drink = 0.6 oz pur e alcohol) socially Sex and Gender Information Value Date Recorded Sex Assigned at Female 08/10/2020 10:27 AM EDT Gender Identity Female 08/10/2020 10:27 AM EDT Sexual Orientation Not on file Job Start Date Occupation Industry Not on file Not on file Not on file Last Filed Vital Signs Vital Sign Reading Time Taken Comments Blood Pressure 169/99 08/10/2020 9:49 AM EDT Pulse 78 08/10/2020 9:49 AM EDT Temperature 35.9 ??C (96.7 ??F) 08/10/2020 9:49 AM ED T Respiratory Rate 16 08/10/2020 9:49 AM EDT Oxygen Saturation 95% 08/10/2020 9:49 AM EDT Inhaled Oxygen Concentration - - Weight 83.9 kg (185 lb) 06/27/2019 5:25 PM EDT Height 157.5 cm (5' 2 ) 06/27/2019 5:25 PM EDT Body Mass Index 33.84 06/27/2019 5:25 PM EDT Plan of Treatment Health Maintenance Due Date Last Done Comments Hepatitis C Screening 1955 COVID-19 Vaccine (#1) 01/23/1956 Depression Screening 1967 BMI Counseling 07/22/1973 Preventative Health Evaluation 07/22/1973 Colon Cancer Screening (Colonoscopy) 07/22/2000 Breast Cancer Screening (Mammogram) 07/22/2005 Shingrix-Zoster Vaccine (1 of 2) 07/22/2005 DTap / Tdap / Td (2 - Td or Tdap) 10/05/2019 010 Fall Risk Assessment 07/22/2020 Osteoporosis Screening (DEXA Scan) 07/22/2020 Pneumococcal Vaccine (1 of 1 - PCV) 07/22/2020 Influenza Vaccine (#1) 2023 RSV Adult > 60+ Yrs or Pregn ant (1 - 1-dose 75+ series) 07/22/2030 Hepatitis B Vaccines Aged Out No long er eligible based on patient's age to complete this topic RSV Ped < 20 months Aged Out No longe r eligible based on patient's age to complete this topic Care Teams Sales Service Route Manager Relationship Specialty Start Date End Date Urvashi Paredes, [employer] [address] [place] [id number] PCP - General Nurse Practitioner 08/10/20
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
--- OUTSIDE RECORDS SUMMARY | 2024-04-14 14:41 | XMS_ITS | Clinical Summary ---
Author Organization [facility] Address [address] [place] [address] Phone Care Team Providers Care Employee Benefits Coordinator Name Role Phone Belia Villavicencio MD Primary Care Prov ider Allergies Active Allergy Reactions Criticality Noted Date Comments Gluten Itching,GI intolerance 01/03/2024 Hydralazine Cardiac Issue High 02/16/2024 Severe chest pain Txieukf-Dpp-Wtv Reductase Inhibitors Muscular Issues High 01/08/2023 Sulfa (Sulfonamide Antibiotics) Rash 01/03/2024 Medications Medication Sig Dispensed Refills Start Date End Date Status cetirizine (ZyrTEC) 10 mg tablet Take 1 tablet (10 mg total) by mouth 1 (one) time each day if needed for allergies. 11/11/2023 Active atenoloL (TENORMIN) 25 mg tablet Take 0.5 tablets (12.5 mg total) by mouth 1 (one) time each day. 07/22/2023 Active clonazePAM (KlonoPIN) 0.5 mg tabletIndication s:Panic disorder (episodic paroxysmal anxiety) TAKE 1 TABLET BY MOUTH 3 TIMES DAILY FOR 28 DAYS. 84 tablet 2 02/10/2024 Active spironolactone (Aldactone) 50 mg tablet Take 1 tablet (50 mg total) by mouth 1 (one) time each day. 30 each 11 02/14/2024 5 Active levothyroxine (SYNTHROID, LEVOTHROID) 100 mcg tablet Take 1 tablet (100 mcg total) by mouth 1 (one) time each day before breakfast. 90 tablet 03/16/2024 Active ferrous sulfate 325 mg (65 mg elemental iron) tablet TAKE 1 TABLET BY MOUTH EVERY DAY 90 tablet 1 03/22/2024 Active Additional Information Patient not taking.Reported on 03/27/2024 cefadroxil 500 mg capsule Take 1 capsule (500 mg total) by mouth 2 (two) times a day for 10 days. 20 capsule 04/12/2024 5 Active levothyroxine (SYNTHROID, LEVOTHROID) 100 mcg tablet Take 1 tablet (100 mcg total) by mouth 1 (one) time each day before breakfast. 04/09/2020 5 Discontinued (Reorder) amoxicillin (AMOXIL) 500 mg capsule Take 2 capsules (1,000 mg total) by mouth 2 (two) times a day. 56 capsule 02/24/2024 5 Discontinued (Therapy completed) famotidine (PEPCID) 20 mg tablet TAKE 1 TABLET BY MOUTH EVERY DAY 90 tablet 1 03/22/2024 5 Discontinued (Therapy completed) amoxicillin-clav ulanate (AUGMENTIN) 500-125 mg per tablet Take 1 tablet by mouth 3 (three) times a day for 7 days. 21 each 03/31/2024 5 Active Problems Problem Noted Date Diagnosed Date Celiac disease 03/28/2024 GERD (gastroesophageal reflux disease) 4 Incarcerated paraesophageal hernia 12/27/2023 Overview (01/11/2024): Last Assessment & Plan: 68-year-old woman newly diagnosed with celiac sprue with a very large paraesophageal hernia type III with symptoms of early satiety, nausea, and occasional dysphagia but no pain, inability to vomit, or black tarry/bloody stools. I had a long discussion with her about paraesophageal hernias in general and what their potential natural history is. We also talked about the imaging she has had in particular her most recent CT scan and prior imaging as described in the HPI. My recommendation to her would be for an elective repair of a giant type III paraesophageal hernia at this point which we will plan to schedule she is agreeable for mid January. Prior to that we will need to get a CT scan of the chest because I do not see the entire contents of the hernia on the abdominal scan in October. We will also get a barium esophagram to get some functional evaluation of the esophagus and hernia. Finally we will plan on getting an EGD to visualize the mucosal side of the esophagus and ensure there are no ulcers or other mucosal lesions that would change our operation significantly. Discussed the risk, benefits, and alternatives of a da Sierra paraesophageal hernia repair with mesh and fundoplication which she seemed understand and agreed to proceed. All questions were answered. Assessment & Plan (02/27/2024 3:28 PM EST): On January 18, 2024 she was taken to the OR and underwent a robotic paraesophageal hernia repair with mesh and fundoplication. He has been tolerating a mechanical soft diet well and her barium swallow study which was performed today shows no evidence of extravasation or leakage with some postoperative edema and moderate esophageal dysmotility with passage of contrast from esophagus to stomach. Advancing her to a regular diet instructions to continue to abstain from straws and carbonated beverages as well as continue to abstain from lifting anything greater than 10 pounds for an additional 2 weeks. Advised to contact the thoracic surgery department moving forward on a as needed basis. Assessment & Plan (02/06/2024 3:35 PM EST): On January 18, 2024 she was taken to the OR and underwent a robotic PEH repair with mesh and fundoplication. Since being discharged from the hospital she has been on a full liquid diet well and crushing all of her p.o. medications Has not been requiring the use of any narcotic pain analgesics in several days and has been doing fine with just the use of Tylenol. Will be advancing to a mechanical soft diet at this time. She was advised that she may now take her p.o. medications whole only 1 at the time. To continue to abstain from carbonated beverages and straws and to avoid lifting anything greater than 10 pounds for the next 4 weeks. Will be seen in this office in 2 weeks time for further assessment of her soft mechanical diet as well as having a barium swallow study. Giant cell arteritis with polymyalgia rheumatica 12/29/2022 Overview (01/11/2024): 12/28 - engaged with Dr. Reeves of rheumatology at [place] Palpitations 03/30/2022 Positive DAREN (antinuclear antibody) 06/18/2021 Obesity (BMI 30.0-34.9) 06/17/2021 Obstructive sleep apnea 06/17/2021 Overview (01/11/2024): Using CPAP (June 2021) Lumbago 10/29/2009 Radiculitis, lumbosacral 10/29/2009 Anemia 10/04/2009 Rheumatoid arthritis 10/04/2009 Hypercholesteremia 10/04/2009 Hypertension 10/04/2009 Hypothyroid 10/04/2009 Panic disorder 10/04/2009 Resolved Problems Problem Noted Date Diagnosed Date Resolved Date Hiatal hernia 03/03/2023 01/19/2024 Assessment & Plan (01/19/2024 2:29 PM EST): Ms. Esteves is a 68 y/o female who is S/P Robotic PEH with mesh and fundoplication on 01/18/24. She is being discharged home in stable condition on a full liquid diet. She is instructed to crush medications No straws or carbonated liquids. No Heavy lifting > 10 pounds She is instructed to call the office with any questions or concerns. She has a follow up appt. Encounters Date Type Department Care Team Description 04/12/2024 3:30 PM EST Office Visit Walk-In Clinic - [place] [id number] [place] [phone] Sue Williamson NP Acute non-recurrent maxillary sinusitis (Primary Dx) 03/30/2024 12:29 PM EST - 03/30/2024 11:59 PM EST Hospital Encounter Radiology Department - [address] [phone] Submandibular gland mass Discharge Disposition: Home or Self Care 03/28/2024 2:30 PM EST Office Visit Adult Medicine [facility] [address] [place] [phone] Belia Villavicencio MD Rheumatoid arthritis, involving unspecified site, unspecified whether rheumatoid factor present ([facility]) (Primary Dx); Primary hypertension; Celiac disease; Iron deficiency; Hypothyroidism, unspecified type; Submandibular gland mass; Rash 03/27/2024 1:30 PM EST Telemedicine Adult [facility] [address] [place] [address] Medicare annual wellness visit, subsequent (Primary Dx) 03/27/2024 Telephone Adult [facility] [address] [place] [address] Mary Devries [place] Medicare Annual Wellness Visit Subsequent (AWV DUE 2024) 03/16/2024 Telephone [facility] [address] [place] [address] Belia Villavicencio MD Blood work; Labs Only 02/24/2024 9:20 AM EST Office Visit Gastroenterology - [place] [facility] [address] [facility] [address] [place] [phone] Sylvain Laws PA Celiac sprue (Primary Dx); History of repair of hiatal hernia; H/O chest pain; Gastroesophageal reflux disease with esophagitis without hemorrhage; Fatty liver; Bacterial infection due to H. pylori 02/17/2024 Telephone Pulmonology - [place] [address] [facility] [address] [place] [phone] Mojgan Vanegas MA 02/16/2024 10:30 AM EST Office Visit Thoracic Surgery - [place] [address] [facility] [address] [place] [phone] Srinath Ibarra PA Incarcerated paraesophageal hernia (Primary Dx) 02/16/2024 7:23 AM EST - 02/16/2024 11:59 PM EST Hospital Encounter [facility] [address] [place] [phone] Diaphragmatic hernia with obstruction, without gangrene Discharge Disposition: Home or Self Care 02/14/2024 3:30 PM EST Office Visit Adult Medicine - [place] [address] [place] [address] Belia Villavicencio MD Allergic drug rash due to non-narcotic analgesic (Primary Dx); Angioedema, subsequent encounter; Gastroesophageal reflux disease without esophagitis; Palpitations; Diarrhea, unspecified type 02/08/2024 11:38 PM EST - 02/09/2024 7:[address] [facility] [address] [place] [phone] Jeremiah Kaur MD Other chest pain (Primary Dx); Chest wall pain Discharge Disposition: Home or Self Care 01/31/2024 1:00 PM EST Office Visit Thoracic Surgery - [place] [address] [facility] [address] [place] [phone] Srinath Ibarra PA Incarcerated paraesophageal hernia (Primary Dx) 01/31/2024 Telephone Adult Medicine - [place] [address] [place] [address] Belia Villavicencio MD Medication Problem 01/26/2024 Telephone [facility] [address] [facility] [address] [place] [phone] Srinath Mercado MD hernia surgery 01/18/2024 7:30 AM EST - 01/18/2024 11:[address] [facility] [address] [place] [phone] Emily Ho MD da sierra paraesophageal hernia repair w/mesh & fundoplication [44847 (CPT??)] 01/18/2024 7:20 AM EST [address]hesia Event [facility] OR [address] [place] [phone] Roque Sheriff MD Walsh, Michael, DO 01/18/2024 5:52 AM EST - 01/19/2024 5:00 PM EST Hospital Encounter [facility] [address] [place] [phone] Emily Ho MD Hiatal hernia; Gastroesophageal reflux disease without esophagitis; GERD (gastroesophageal reflux disease); Dyspepsia Discharge Disposition: Home or Self Care 01/13/2024 8:59 AM EST [address] Event [facility] [address] [place] [phone] Roque Sheriff MD 01/13/2024 8:04 AM EST - 01/13/2024 11:59 PM EST Hospital Encounter [facility] [address] [place] [phone] Sher Simmons MD Saliga, Jesse L, MD Oral mucosal lesion; Paraesophageal hernia Discharge Disposition: Home or Self Care from Last 3 Months Immunizations Name Administration Dates Next Due Influenza Quadrivalent, 0.5m l, preservative free (Fluarix; FluLaval; Fluzone) ages 6mo and older (Afluria) 3yo and older 04/04/2020 Influenza trivalent, 0.5mL ( Fluzone High-dose) 65yo and older 02/05/2022,01/28/2021 Tdap Tetanus diptheria acell ular pertussis (Boostrix; Adacel) 7yo and older 10/04/2009 Surgical History Surgery Date Site/Laterality Comments CHOLECYSTECTOMY HYSTERECTOMY PARAESOPHAGEAL HERNIA REPAIR 01/18/2024 N/A w/ obstruction Medical History Medical History Date Comments Sleep apnea PONV (postoperative nausea and vomiting) Hypothyroidism Hypertension Anemia Anxiety TIA (transient ischemic attack) 03/2022 GERD (gastroesophageal reflux disease) Paraesophageal hernia CPAP (continuous positive airway pressure) depen dence Celiac disease Rheumatoid arthritis (CMS/HCC) 01/2024 Family History Medical History Relation Name Comments ca oral Brother glutin senitive Daughter Stroke Father Anxiety disorder Mother Arthritis Mother Hypertension Mother Other cancer Sister 1 Rheum arthritis Sister 1 Rheum arthritis Sister 2 No Known Problems Son Relation Name Status Comments Brother Daughter Alive Father Mother Alive Sister 1 Sister 2 Alive Son Alive Social History Tobacco Use Types Packs/Day Years Used Date Smoking Tobacco: Former Cigarettes Q uit: 1998 Smokeless Tobacco: Never Tobacco Cessation:Counseling Given: Not Answered Comments:QUIT SMOKING 1998 Alcohol Use Standard Drinks/Week [...] Record ed Within the last 3 months, ho w many times did you visit the emergency [...] for your loved ones. For example, child development specialist or elderly care for an older adult? [...] file Not on file Not on file Obstetrics History Last Filed Vital Signs Vital Sign Reading Time Taken Comments Blood Pressure 148/88 04/12/2024 3:45 PM EST Pulse 71 04/12/2024 3:45 PM EST Temperature 36 ??C (96.8 ??F) 04/12/2024 3:45 PM EST Respiratory Rate 14 02/16/2024 10:25 AM EST Oxygen Saturation 98% 04/12/2024 3:45 PM EST Inhaled Oxygen Concentration - - Weight 78.6 kg (173 lb 3.2 oz) 03/28/2024 2:40 P M EST Height 158.8 cm (5' 2.5 ) 02/24/2024 9:29 AM EST Body Mass Index 31.17 02/24/2024 9:29 AM EST Plan of Treatment Upcoming Encounters Date Type Department Care Team (Late st Contact Info) Description 04/18/2024 11:[address] Scan [address] [phone] 09/29/2024 1:15 PM EDT Office Visit Adult Medicine - [address] [phone] Belia Villavicencio MD [address] [place] [address] Health Maintenance Due Date Last Done Comments Breast Cancer Screening 1955 Pneumococcal Vaccine: 65+ Years (1 of 2 - PCV) 07/22/1961 Hepatitis A Vaccines (1 of 2 - Risk 2-dose series) 07/22/1974 Zoster Vaccines (1 of 2) 07/22/2005 Hepatitis B Vaccines (1 of 3 - Risk 3-dose series) 2015 RSV Immunization Patients 60+ Years Old (1 - Risk 60-74 years 1-dose series) 2015 DTaP,Tdap,and Td Vaccines (3 - Td or Tdap) 02/06/2023 02/06/2013, 10/04/2009 COVID-19 Vaccine (5 - season) 2023 04/20/2022, 02/11/2021, 06/20/2020, Additional history exists Influenza Vaccine (#1) 2023 , 01/28/2021, 04/04/2020, Additional history exists Hypertension/CHF/CAD Annual BMP Blood Test 02/07/2025 02/08/2024, 01/19/2024, 01/19/2024, Additional history exists Depression Screening 03/27/2025 03/27/2024 Falls Risk Assessment 03/27/2025 03/27/2024, 024 Social Influencers of Health Screening 03/27/2025 03/27/2024 Cholesterol Screening (Lipid Panel) 09/19/2028 09/20/2023, 09/20/2023 Osteoporosis Screening (Bone Density Screening) 03/05/2032 03/05/2022 Colorectal Cancer Screening: Colonoscopy 10/07/2032 10/07/2022 Hepatitis C Screening Completed 09/18/2020 Medicare Annual Wellness Visit Discontinued 03/27/2024 HIB Vaccines Aged Out No longer eligi ble based on patient's age to complete this topic HPV Vaccines Aged Out No longer eligi ble based on patient's age to complete this topic IPV Vaccines Aged Out No longer eligi ble based on patient's age to complete this topic MMR Vaccines Aged Out No longer eligi ble based on patient's age to complete this topic Meningococcal ACWY Vaccine Aged Out N o longer eligible based on patient's age to complete this topic RSV Immunization Patients Under 20 months Aged Out No longer eligible based on patient's age to complete this topic Varicella Vaccines Aged Out No longer eligible based on patient's age to complete this topic Medical Devices Implanted Type Area Easter Bunny Device Identifier Shelf Expiration Date Model / Serial / Lot Sealant Fibrin Vistaseal 10ml - [id number] - [id number] Implanted:Qty: 1 on 01/18/2024 by Emily Ho MD at [facility] Hemostasis N/A: Abdomen JNJ [employer] [id number] 09/13/2025 [id number] / [id number] / [id number] Tissue Ovitex 1s Perm 6x10cm - Sna - [id number] Implanted:Qty: 1 on 01/18/2024 by Emily Ho MD at [facility] Surgical Mesh Sling Implants N/A: Abdomen MARGY [employer] [id number] 07/05/2025 [id number] / NA / [id number] 1 Procedures Procedure Name Priority Date/Time Associated Diagnosis Comments POC INFLUENZA A/B Routine 04/13/2024 9:5 5 AM EST Acute non-recurrent maxillary sinusitis POC RAPID [id number], MOLECULAR Routine 04/13/2024 9:54 AM EST Acute non-recurrent maxillary sinusitis US HEAD NECK SOFT TISSUE Routine 03/30/2024 12:54 PM EST Submandibular gland mass IRON AND TIBC Routine 03/28/2024 3:27 PM EST Iron deficiency THYROID STIMULATING HORMONE WITH REFLEX TO FREE T4 AND FREE T3 Routine 03/28/2024 3:27 PM EST Hypothyroidism, unspecified type HELICOBACTER PYLORI BREATH TEST Routine 03/28/2024 3:27 PM EST Celiac sprue History of repair of hiatal hernia H/O chest pain Gastroesophageal reflux disease with esophagitis without hemorrhage Fatty liver Bacterial infection due to H. pylori XR ESOPHAGRAM Routine 02/16/2024 8:20 AM EST Diaphragmatic hernia with obstruction, without gangrene ECG 12-LEAD STAT 02/09/2024 2:06 AM EST D-DIMER STAT 02/09/2024 2:00 AM EST TROPONIN I HIGH SENSITIVITY STAT 02/09/2024 2:[address] ANGIO CHEST/ABDOMEN/PELVIS WO AND/OR W CONTRAST STAT 02/09/2024 1:11 AM EST Other chest pain CBC WITH AUTO DIFFERENTIAL STAT 02/08/2024 11:50 PM EST B-TYPE NATRIURETIC PEPTIDE STAT 02/08/2024 11:50 PM EST MAGNESIUM STAT 02/08/2024 11:50 PM EST LIPASE STAT 02/08/2024 11:50 PM EST COMPREHENSIVE METABOLIC PANEL STAT 02/08/2024 11:50 PM EST CBC AND DIFFERENTIAL STAT 02/08/2024 11:50 PM EST TROPONIN I HIGH SENSITIVITY STAT 02/08/2024 11:50 PM EST ECG ANNOTATED 02/08/2024 ECG OUTSIDE 02/08/2024 ECG EXTERNAL Routine 01/26/2024 11:[address] CHEST WO CONTRAST STAT 01/19/2024 12:31 PM EST XR ABDOMEN 1 VIEW Routine 01/19/2024 12:07 PM EST BASIC METABOLIC PANEL Routine 01/19/2024 10:18 AM EST COMPLETE BLOOD COUNT Routine 01/19/2024 10:18 AM EST XR ESOPHAGRAM Routine 01/19/2024 9:52 AM EST BASIC METABOLIC PANEL Add-On 01/19/2024 5:58 AM EST MAGNESIUM Routine 01/19/2024 5:58 AM EST PHOSPHORUS Routine 01/19/2024 5:58 AM EST COMPLETE BLOOD COUNT Timed 01/19/2024 5:58 AM EST POCT GLUCOSE BLOOD Routine 01/18/2024 8: 19 PM EST TISSUE EXAM Routine 01/18/2024 9:24 AM EST Hiatal hernia Gastroesophageal reflux disease without esophagitis TH AN ENDOTRACHEAL(NO CHARGE) Routine 01/18/2024 7:38 AM EST AK LAPAROSCOPY SURG REPAIR PARAESOPHAGEAL HERNIA INCL FUNDOPLASTY W MESH 01/18/2024 7:20 AM EST Hiatal hernia Gastroesophageal reflux disease without esophagitis Case Notes 23Hr bed EGD Routine 01/13/2024 9:19 AM EST Oral mucosal lesion Paraesophageal hernia TISSUE EXAM Routine 01/13/2024 9:14 AM EST Oral mucosal lesion Paraesophageal hernia LIPID PANEL Routine 09/20/2023 COLONOSCOPY Routine 10/07/2022 DXA BONE DENSITY STUDY 1+ SITS AXIAL SKEL Routine 03/05/2022 1:21 PM EST Encounter for screening for osteoporosis HEPATITIS C SCREENING Routine 09/18/2020 from Last 3 Months or Most Recently Relevant to Health Maintenance Results * POC Influenza A/B manually resulted (04/13/2024 9:55 AM EST) Pathologist [facility] Rapid Influenza A AGN POC Negative Negative Rapid Influenza B AGN POC Negative Negative Swab 04/13/2024 9:55 AM EST Sue Williamson NP POINT OF CARE TEST E NTER/EDIT ORDERABLES * Poc Rapid [id number], MOLECULAR (04/13/2024 9:54 AM EST) Pathologist [facility] COVID-19/SARS- COV-2 Rapid POC Negative Negative Swab Nasopharyngeal structure / Unknown 04/13/2024 9:54 AM EST Sue Williamson PROJECT COACH POINT OF CARE TEST E NTER/EDIT ORDERABLES * US Head Neck Soft Tissue (03/30/2024 12:54 PM EST) Anatomical Region Laterality Modality Head and Neck Ultrasound 03/30/2024 1:20 PM EST Impressions 03/30/2024 1:21 PM EST Morphologically normal lymph node corresponding to the palpable area. -------- FINAL REPORT -------- Dictated By: Felecia Roth Dictated Date: 03/30/2024 13:20 ET Assigned Physician: Felecia Roth Reviewed and Electronically Signed By: Felecia Roth Signed Date: 03/30/2024 13:21 ET Workstation ID: [id number] Transcribed By: Self Edit Transcribed Date: 03/30/2024 13:20 ET Narrative 03/30/2024 1:21 PM EST US HEAD NECK SOFT TISSUE SONO SOFT TISSUE HISTORY: Submandibular mass on left. PRIORS: None. FINDINGS: ??Ultrasound evaluation of the palpable area indicated by the patient superior to the left submandibular gland was performed. There is a 0.8 x 0.4 x 0.5 cm lymph node with prominent fatty hilum corresponding to the palpable area. Procedure Note Felecia Roth MD - 03/30/2024 US HEAD NECK SOFT TISSUE SONO SOFT TISSUE HISTORY: Submandibular mass on left. PRIORS: None. FINDINGS: Ultrasound evaluation of the palpable area indicated by thepatient superior to the left submandibular gland was performed. There is a 0.8 x 0.4 x 0.5 cm lymph node with prominent fatty hilumcorresponding to the palpable area. IMPRESSION: Morphologically normal lymph node corresponding to the palpable area. -------- FINAL REPORT -------- Dictated By: Felecia Roth Dictated Date: 03/30/2024 13:20 ET Assigned Physician: Felecia Roth Reviewed and Electronically Signed By: Felecia Roth Signed Date: 03/30/2024 13:21 ET Workstation ID: [id number] Transcribed By: Self Edit Transcribed Date: 03/30/2024 13:20 ET Belia Villavicencio MD [facility] US PRO CEDURES * Thyroid stimulating hormone with reflex to free t4 and free t3 (03/28/2024 3:27 PM EST) Pathologist [facility] TSH 1.42 0.40 - 4.00 mcIU/mL LAB CHEMISTRY METHOD 03/28/2024 6:38 PM EST [facility] Blood Venous blood specimen / Unknown Venipuncture / Unknown 03/28/2024 3:27 PM EST 03/28/2024 3:27 PM EST Belia Villavicencio MD LAB BLOOD ORDERABLES [facility] [address] [place] [address], * (ABNORMAL) Iron and TIBC (03/28/2024 3:27 PM EST) [facility] Iron 151(H) 40 - 150 mcg/dL LAB CHEMISTRY METHOD 03/28/2024 6:28 PM [facility] TIBC 376 250 - 450 mcg/dL LAB CHEMISTRY METHOD 03/28/2024 6:28 PM EST [facility] Iron Saturation 40 15 - 50 % LAB CHEMISTRY METHOD 03/28/2024 6:28 PM [facility] Blood Venous blood specimen / Unknown Venipuncture / Unknown 03/28/2024 3:27 PM EST 03/28/2024 3:27 PM EST Belia Villavicencio MD LAB BLOOD ORDERABLES [facility] [address] [place] [address], [place] [phone] * Helicobacter pylori breath test (03/28/2024 3:27 PM EST) [facility] Pylori Breath Test Negative Negative LAB CHEMISTRY METHOD 03/29/2024 11:27 AM EST [facility] Breath Oral cavity structure / Unknown Non-blood Collection / Unknown 03/28/2024 3:27 PM EST 03/28/2024 3:27 PM EST Sylvain DAILY LAB BODY FLUIDS AND STOOLS ORDERABLES [facility] [address] [place] [address], * XR Esophagram (02/16/2024 8:20 AM EST) Only the most recent of2 resultswithin the time period is included. Anatomical Region Laterality Modality Head and Neck Radiographic Natasha ging 02/16/2024 10:4 8 AM EST Impressions 02/16/2024 11:15 AM EST 1. Moderate esophageal dysmotility. 2. Moderate narrowing at the area of the GE junction with lodging of 13 mm barium tablet within this area. Narrowing is much improved when compared to prior imaging from January 19, 2024, indicating resolving postsurgical edema. 3. Lodging of 13 mm barium tablet within the epiglottis for several minutes after swallowing, indicating weak epiglottic inversion. 4. No evidence of contrast leak, extravasation or residual hernia. -------- FINAL REPORT -------- Dictated By: Nona Kapadia Dictated Date: 02/16/2024 10:48 ET Assigned Physician: Osman Lara Reviewed and Electronically Signed By: Osman Lara Signed Date: 02/16/2024 11:15 ET Workstation ID: [id number] Transcribed By: Self Edit Transcribed Date: 02/16/2024 10:59 ET Resident/PA/PROJECT COACH: Nona Kapadia Narrative 02/16/2024 11:15 AM EST FINDINGS: Double contrast esophagram performed. COMPARISON: Esophagram January 19, 2024 HISTORY: Patient is a 68-year-old female one month status post hiatal hernia repair. Utilization Review Rn radiographs: 1 view chest radiograph demonstrates cardiac and mediastinal borders within normal limits. Lungs are clear bilaterally. There is elevation of the right hemidiaphragm, also seen on prior imaging from 2018. Aortic knob is calcified. There are moderate to severe bony degenerative changes of the thoracolumbar spine. Surgical clips noted in the right upper quadrant, indicating history of cholecystectomy. Effervescent crystals were administered orally. Thick and thin barium were administered orally under fluoroscopic control. Pharyngoesophagram: Rapid sequence imaging of the hypopharynx during swallowing demonstrates prompt initiation of swallowing. There is normal soft palate elevation and normal epiglottic motion. There is no laryngeal penetration or fady aspiration. There is no residual in the vallecula nor in the piriform sinuses. Thoracic esophagus: Moderate esophageal dysmotility as demonstrated by visualized tertiary contractions and slower transit of contrast from the esophagus. Normal distensibility and mucosal pattern. There is moderate narrowing at the area of the GE junction, much improved when compared to prior imaging from January 19, 2024. Patient was instructed to swallow 13 mm barium tablet, which did still remained lodged within this area, however. Additionally, 13 mm barium tablet became lodged within the epiglottis for several minutes before passing through the esophagus, indicating weak epiglottic inversion. No evidence of contrast leak, extravasation or residual hernia. DAP: 629.12 uGym^2 Exam performed and dictated by: Nona Kapadia PA-C Supervising physician: Osman Lara MD Procedure Note Osman Lara MD - 02/16/2024 FINDINGS: Double contrast esophagram performed. COMPARISON: Esophagram January 19, 2024 HISTORY: Patient is a 68-year-old female one month status post hiatalhernia repair. Utilization Review Rn radiographs: 1 view chest radiograph demonstrates cardiac andmediastinal borders within normal limits. Lungs are clear bilaterally.There is elevation of the right hemidiaphragm, also seen on prior imagingfrom 2018. Aortic knob is calcified. There are moderate to severe bonydegenerative changes of the thoracolumbar spine. Surgical clips noted inthe right upper quadrant, indicating history of cholecystectomy. Effervescent crystals were administered orally. Thick and thin barium wereadministered orally under fluoroscopic control. Pharyngoesophagram: Rapid sequence imaging of the hypopharynx duringswallowing demonstrates prompt initiation of swallowing. There is normalsoft palate elevation and normal epiglottic motion. There is no laryngealpenetration or fady aspiration. There is no residual in the vallecula norin the piriform sinuses. Thoracic esophagus: Moderate esophageal dysmotility as demonstrated byvisualized tertiary contractions and slower transit of contrast from theesophagus. Normal distensibility and mucosal pattern. There is moderatenarrowing at the area of the GE junction, much improved when compared toprior imaging from January 19, 2024. Patient was instructed to swallow 13mm barium tablet, which did still remained lodged within this area,however. Additionally, 13 mm barium tablet became lodged within theepiglottis for several minutes before passing through the esophagus,indicating weak epiglottic inversion. No evidence of contrast leak,extravasation or residual hernia. DAP: 629.12 uGym^2 Exam performed and dictated by: Nona Kapadia PA-C Supervising physician: Osman Lara MD IMPRESSION: 1. Moderate esophageal dysmotility. 2. Moderate narrowing at the area of the GE junction with lodging of 13 mmbarium tablet within this area. Narrowing is much improved when comparedto prior imaging from January 19, 2024, indicating resolving postsurgicaledema. 3. Lodging of 13 mm barium tablet within the epiglottis for severalminutes after swallowing, indicating weak epiglottic inversion. 4. No evidence of contrast leak, extravasation or residual hernia. -------- FINAL REPORT -------- Dictated By: Nona Kapadia Dictated Date: 02/16/2024 10:48 ET Assigned Physician: Osman Lara Reviewed and Electronically Signed By: Osman Lara Signed Date: 02/16/2024 11:15 ET Workstation ID: [id number] Transcribed By: Self Edit Transcribed Date: 02/16/2024 10:59 ET Resident/PA/PROJECT COACH: Nona Kapadia Emily Ho MD IMG FLUOROSCOPY PROC EDURES * ECG 12 lead (02/09/2024 2:06 AM EST) Ventricular Rate ECG 85 BPM GEMUSE Atrial Rate 85 BPM GEMUSE P-R Interval 236 ms GEMUSE QRS Duration 84 ms GEMUSE Q-T Interval 394 ms GEMUSE QTc 468 ms GEMUSE P Wave [place] 23 degrees GEMUSE R [place] 29 degrees GEMUSE T [place] 9 degrees GEMUSE ECG Interpretation Sinus rhythm with 1st degree A-V block Otherwise normal ECG When compared with ECG of 11-JAN-2024 10:10, AK interval has increased Vent. rate has increased BY ??28 BPM Confirmed by BONITA BACH ([id number]) on 02/09/2024 9:40:31 AM GEMUSE 02/09/2024 2:06 AM EST 02/09/2024 9:40 AM EST Jeremiah Kaur MD ECG ORDERABLES Performing Organization Address [facility] de Phone Number GEMUSE * Troponin I high sensitivity (02/09/2024 2:00 AM EST) Only the most recent of2 resultswithin the time period is included. [facility] High Sensitivity Troponin I 15 <=54 ng/L LAB CHEMISTRY METHOD 02/09/2024 2:35 AM EST [facility] Blood Venous blood specimen / Unknown Venipuncture / Unknown 02/09/2024 2:00 AM EST 02/09/2024 2:13 AM EST Narrative [facility] - 02/09/2024 2:35 AM EST High levels of biotin in samples may falsely decrease hsTroponin values. ??Use caution when interpreting hsTroponin results in patients taking biotin who exhibit renal impairment (eGFR <60) or in patients taking more than 20 mg/day of biotin. Jeremiah Kaur MD LAB BLOOD ORDERABLES Performing Organization Address [facility] de Phone Number [facility] [address] [place] [address], * (ABNORMAL) D-dimer, quantitative (02/09/2024 2:00 AM EST) [facility] D-Dimer, Quant (D-DU) 673(H) <=230 ng/mL DDU LAB COAGULATION METHOD 02/09/2024 2:31 AM EST [facility] Blood Venous blood specimen / Unknown Venipuncture / Unknown 02/09/2024 2:00 AM EST 02/09/2024 2:[address] [facility] ([facility]) [facility] - 02/09/2024 2:31 AM EST D-Dimer <230 ng/mL (D-Dimer units) is the threshold for exclusion of DVT/PE. D-Dimer may be elevated in: Critically ill, severely infected, trauma patients, DIC, acute CVA, acute AL, unstable angina, AF, old age, , and smoking. D-Dimer may be decreased with: Initiation of heparin therapy and oral anticoagulants. Jeremiah Kaur MD LAB BLOOD ORDERABLES [facility] ([facility]) [facility] [address] [place] [address], [place] [phone] * CT Angio Chest/Abdomen/Pelvis wo and/or w Contrast (02/09/2024 1:11 AM EST) Anatomical Region Laterality Modality Body Computed Tomogra phy 02/09/2024 2:11 AM EST Addenda Addendum by Wilder Camilo MD on 02/09/2024 2:30 AM EST ADDENDUM: Receipt of this report by the clinical staff was confirmed with ARUN Burgos on Feb 09, 2024 02:30:00 EST. This document has been electronically signed by: Netta Dowell on 02/09/2024 02:30:08 Impressions 02/09/2024 2:11 AM EST 1. No pulmonary embolism. 2. No aortic dissection or aneurysm. 3. A rounded soft tissue lesion within the left breast measures 2.3 x 2.0 cm. Recommend correlating with mammogram to exclude neoplasm at this site. 4. Cardiomegaly. 5. Circumferential mucosal thickening of the distal esophagus could reflect longstanding reflux or esophagitis. A small hiatal hernia. 6. Trace bibasilar pleural effusions slightly greater in size on the right than left. 7. Hepatic steatosis. 8. Scattered colonic diverticula without diverticulitis. Liquid stool within the distal rectum could represent diarrheal based illness. 9. Abutting the anterolateral margin of the descending colon is a rounded fat density with characteristic most consistent with epiploic appendagitis, image 337 of series 5. 10. Appendix is not identified with certainty. This document has been electronically signed by: Wilder Camilo DO on 02/09/2024 02:11:47 Narrative 02/09/2024 2:11 AM EST CTA chest, abdomen, and pelvis with IV contrast. MIP and 3D post processing was submitted. Comparison: None Findings: Rounded soft tissue lesion within the left breast measuring 2.3 x 2.0 cm. Recommend correlating with mammogram to exclude neoplasm. The thyroid is unremarkable. Normal caliber of the thoracic aorta. No aneurysm or dissection of the thoracic aorta. Atherosclerosis of the thoracic aorta. Cardiomegaly. Small lymph nodes scattered throughout the mediastinum. Circumferential mucosal thickening of the distal esophagus this could represent longstanding reflux or esophagitis. A small hiatal hernia. No pulmonary embolism. Atelectasis involving the dependent right upper lobe. Subsegmental atelectasis involving the right middle lobe, lingula, and lung bases. Trace bibasilar pleural effusions slightly greater in size on the right than left. Bronchiectasis within the lung bases. Atherosclerosis of the abdominal aorta which extends into the iliac vasculature. No aneurysm or dissection of the abdominal aorta. The celiac artery, superior mesenteric artery, inferior mesenteric artery and bilateral renal arteries are all patent without occlusion or stenosis. Hepatic steatosis. Hypodensity measuring 10 mm within the left lobe of the liver statistically representing hepatic cysts. Intrahepatic and extrahepatic biliary ductal dilatation likely related to prior cholecystectomy. Incidental note of duodenal diverticulum. Pancreatic atrophy. The spleen and bilateral adrenal glands are normal. Nonspecific mild bilateral perinephric stranding. No nephrolithiasis or hydronephrosis. The contour of the urinary bladder is unremarkable. Hysterectomy. Trace free fluid in the cul-de-sac which is likely physiologic or reactive. Scattered colonic diverticula without diverticulitis. Liquid stool within the distal rectum could represent diarrheal based illness. Abutting the anterolateral margin of the descending colon is a rounded fat density with characteristic most consistent with epiploic appendagitis, image 337 of series 5. No bowel obstruction, pneumoperitoneum, or pneumatosis. The appendix is not identified with certainty. Degenerative changes throughout the thoracolumbar spine. Procedure Note Wilder Camilo MD - 02/09/2024 CTA chest, abdomen, and pelvis with IV contrast. MIP and 3D post processing was submitted. Comparison: None Findings: Rounded soft tissue lesion within the left breast measuring 2.3 x 2.0cm. Recommend correlating with mammogram to exclude neoplasm. The thyroid is unremarkable. Normal caliber of the thoracic aorta. No aneurysm or dissection of the thoracic aorta. Atherosclerosis of the thoracic aorta. Cardiomegaly. Small lymph nodes scattered throughout the mediastinum. Circumferential mucosal thickening of the distal esophagus this could represent longstanding reflux or esophagitis. A small hiatal hernia. No pulmonary embolism. Atelectasis involving the dependent right upper lobe. Subsegmental atelectasis involving the right middle lobe, lingula, and lung bases. Trace bibasilar pleural effusions slightly greater in size on the right than left. Bronchiectasis within the lung bases. Atherosclerosis of the abdominal aorta which extends into the iliac vasculature. No aneurysm or dissection of the abdominal aorta. The celiac artery, superior mesenteric artery, inferior mesentericartery and bilateral renal arteries are all patent without occlusion orstenosis. Hepatic steatosis. Hypodensity measuring 10 mm within the left lobe ofthe liver statistically representing hepatic cysts. Intrahepatic and extrahepatic biliary ductal dilatation likely related to prior cholecystectomy. Incidental note of duodenal diverticulum. Pancreatic atrophy. The spleen and bilateral adrenal glands are normal. Nonspecific mild bilateral perinephric stranding. No nephrolithiasis or hydronephrosis. The contour of the urinary bladder is unremarkable. Hysterectomy. Trace free fluid in the cul-de-sac which is likely physiologic or reactive. Scattered colonic diverticula without diverticulitis. Liquid stoolwithin the distal rectum could represent diarrheal based illness. Abutting the anterolateral margin of the descending colon is a roundedfat density with characteristic most consistent with epiploic appendagitis, image 337 of series 5. No bowel obstruction, pneumoperitoneum, or pneumatosis. The appendix is not identified with certainty. Degenerative changes throughout the thoracolumbar spine. IMPRESSION: 1. No pulmonary embolism. 2. No aortic dissection or aneurysm. 3. A rounded soft tissue lesion within the left breast measures 2.3 x2.0 cm. Recommend correlating with mammogram to exclude neoplasm at thissite. 4. Cardiomegaly. 5. Circumferential mucosal thickening of the distal esophagus could reflect longstanding reflux or esophagitis. A small hiatal hernia. 6. Trace bibasilar pleural effusions slightly greater in size on theright than left. 7. Hepatic steatosis. 8. Scattered colonic diverticula without diverticulitis. Liquid stool within the distal rectum could represent diarrheal based illness. 9. Abutting the anterolateral margin of the descending colon is arounded fat density with characteristic most consistent with epiploic appendagitis, image 337 of series 5. 10. Appendix is not identified with certainty. This document has been electronically signed by: Wilder Camilo DO on 02/09/2024 02:11:47 Scot Aubrey Kaur MD [facility] CT PROCEDURES * (ABNORMAL) CBC auto differential (02/08/2024 11:50 PM EST) WBC 11.0(H) 4.8 - 10.8 K/mcL LAB HEMETOLOGY METHOD 02/09/2024 12:26 AM [facility] RBC 4.80 3.80 - 4.80 M/mcL LAB HEMETOLOGY METHOD 02/09/2024 12:26 AM [facility] Hemoglobin 12.7 11.5 - 16.0 g/dL LAB HEMETOLOGY METHOD 02/09/2024 12:26 AM [facility] Hematocrit 38.7 35.0 - 47.0 % LAB HEMETOLOGY METHOD 02/09/2024 12:26 AM [facility] MCV 80.0 79.0 - 98.0 FL LAB HEMETOLOGY METHOD 02/09/2024 12:26 AM [facility] MCH 26.2(L) 27.0 - 32.0 pcg LAB HEMETOLOGY METHOD 02/09/2024 12:26 AM [facility] MCHC 32.8 32.0 - 37.0 g/dL LAB HEMETOLOGY METHOD 02/09/2024 12:26 AM [facility] RDW 12.7 11.0 - 15.0 % LAB HEMETOLOGY METHOD 02/09/2024 12:26 AM [facility] Platelets 390 130 - 400 K/mcL LAB HEMETOLOGY METHOD 02/09/2024 12:26 AM [facility] MPV 10.4 7.0 - 11.0 FL LAB HEMETOLOGY METHOD 02/09/2024 12:26 AM [facility] NRBC 0.0 <1.0 % LAB HEMETOLOGY METHOD 02/09/2024 12:26 AM [facility] NRBC Absolute 0.00 <0.10 K/mcL LAB HEMETOLOGY METHOD 02/09/2024 12:26 AM [facility] Neutrophils Relative 55.2 % LAB HEMETOLOGY METHOD 02/09/2024 12:26 AM [facility] Lymphocytes Relative 29.3 % LAB HEMETOLOGY METHOD 02/09/2024 12:26 AM [facility] Monocytes Relative 6.7 % LAB HEMETOLOGY METHOD 02/09/2024 12:26 AM [facility] Eosinophils Relative 7.7 % LAB HEMETOLOGY METHOD 02/09/2024 12:26 AM [facility] Basophils Relative 0.7 % LAB HEMETOLOGY METHOD 02/09/2024 12:26 AM [facility] Immature Granulocytes Relative 0.4 % LAB HEMETOLOGY METHOD 02/09/2024 12:26 AM [facility] Neutrophils Absolute 6.06 1.50 - 7.00 K/mcL LAB HEMETOLOGY METHOD 02/09/2024 12:26 AM [facility] Lymphocytes Absolute 3.22 1.00 - 5.00 K/mcL LAB HEMETOLOGY METHOD 02/09/2024 12:26 AM [facility] Monocytes Absolute 0.74 0.20 - 1.00 K/mcL LAB HEMETOLOGY METHOD 02/09/2024 12:26 AM [facility] Eosinophils Absolute 0.85(H) 0.00 - 0.50 K/[facility] LAB HEMETOLOGY METHOD 02/09/2024 12:26 AM EST [facility] Basophils Absolute 0.08 0.00 - 0.20 K/[facility] LAB HEMETOLOGY METHOD 02/09/2024 12:26 AM EST [facility] Immature Granulocytes Absolute 0.04(H) 0.00 - 0.03 K/[facility] LAB HEMETOLOGY METHOD 02/09/2024 12:26 AM EST [facility] Blood Venous blood specimen / Unknown Venipuncture / Unknown 02/08/2024 11:50 PM EST 02/09/2024 12:15 AM EST Jeremiah Kaur MD LAB BLOOD ORDERABLES Performing Organization Address City/[facility]/ZIP Co de Phone Number [facility] [address] [place] [address], * B-type natriuretic peptide (02/08/2024 11:50 PM EST) BNP 63 <=100 pcg/mL LAB CHEMISTRY METHOD 02/09/2024 12:54 AM EST [facility] Blood Venous blood specimen / Unknown Venipuncture / Unknown 02/08/2024 11:50 PM EST 02/09/2024 12:15 AM EST Jeremiah Kaur MD LAB BLOOD ORDERABLES Performing Organization Address City/[facility]/ZIP Co de Phone Number [facility] [address] [place] [address], [place] [phone] * (ABNORMAL) Magnesium (02/08/2024 11:50 PM EST) Only the most recent of2 resultswithin the time period is included. Magnesium 1.7(L) 1.9 - 2.6 mg/dL LAB CHEMISTRY METHOD 02/09/2024 12:47 AM EST [facility] Blood Venous blood specimen / Unknown Venipuncture / Unknown 02/08/2024 11:50 PM EST 02/09/2024 12:15 AM EST Jeremiah Kaur MD LAB BLOOD ORDERABLES Performing Organization Address [facility]/ZIP Co de Phone Number [facility] [address] [place] [address], [place] [phone] * Lipase (02/08/2024 11:50 PM EST) [facility] Lipase 26 13 - 75 unit/L LAB CHEMISTRY METHOD 02/09/2024 12:47 AM [facility] Blood Venous blood specimen / Unknown Venipuncture / Unknown 02/08/2024 11:50 PM EST 02/09/2024 12:15 AM EST Jeremiah Kaur MD LAB BLOOD ORDERABLES Performing Organization Address [facility]/ZIP Co de Phone Number [facility] [address] [place] [address], [place] [phone] * (ABNORMAL) Comprehensive metabolic panel (02/08/2024 11:50 PM EST) [facility] Sodium 136 133 - 145 mmol/L LAB CHEMISTRY METHOD 02/09/2024 12:47 AM [facility] Potassium 3.2(L) 3.5 - 5.5 mmol/L LAB CHEMISTRY METHOD 02/09/2024 12:47 AM [facility] Chloride 104 96 - 110 mmol/L LAB CHEMISTRY METHOD 02/09/2024 12:47 AM [facility] CO2 21 21 - 32 mmol/L LAB CHEMISTRY METHOD 02/09/2024 12:47 AM [facility] Anion Gap 11 3 - 11 LAB CHEMISTRY METHOD 02/09/2024 12:47 AM [facility] Glucose 115(H) 70 - 100 mg/dL LAB CHEMISTRY METHOD 02/09/2024 12:47 AM [facility] BUN 7 5 - 25 mg/dL LAB CHEMISTRY METHOD 02/09/2024 12:47 AM [facility] Creatinine 0.66 0.50 - 1.10 mg/dL LAB CHEMISTRY METHOD 02/09/2024 12:47 AM [facility] eGFR 96 >=60 mL/min/1. 73m2 LAB CHEMISTRY METHOD 02/09/2024 12:47 AM [facility] Comment:Calculation based on the??Chronic Kidney Disease Epidemiology Collaboration (CKD-EPI) equation refit??without adjustment for race. BUN/Creatinine Ratio 10.6 LAB CHEMISTRY METHOD 02/09/2024 12:47 AM [facility] Calcium 9.3 8.5 - 10.5 mg/dL LAB CHEMISTRY METHOD 02/09/2024 12:47 AM [facility] AST (SGOT) 16 10 - 42 unit/L LAB CHEMISTRY METHOD 02/09/2024 12:47 AM [facility] ALT (SGPT) 23 10 - 60 unit/L LAB CHEMISTRY METHOD 02/09/2024 12:47 AM [facility] Alkaline Phosphatase 74 42 - 121 unit/L LAB CHEMISTRY METHOD 02/09/2024 12:47 AM [facility] Total Protein 7.2 6.0 - 8.0 g/dL LAB CHEMISTRY METHOD 02/09/2024 12:47 AM [facility] Albumin 3.7 3.2 - 5.0 g/dL LAB CHEMISTRY METHOD 02/09/2024 12:47 AM [facility] Total Bilirubin 0.2 0.0 - 1.4 mg/dL LAB CHEMISTRY METHOD 02/09/2024 12:47 AM [facility] Blood Venous blood specimen / Unknown Venipuncture / Unknown 02/08/2024 11:50 PM EST 02/09/2024 12:15 AM EST Scot A Millay MD LAB BLOOD ORDERABLES [facility] [address] [place] [address], * ECG-Outside (02/08/2024) Provider Onbase MD ECG ORDERABLES * ECG-Annotated (02/08/2024) Provider Onbase MD ECG ORDERABLES * ECG-External (01/26/2024 11:26 AM EST) Historical Provider ECG ORDERABLES * CT Chest wo Contrast (01/19/2024 12:31 PM EST) Anatomical Region Laterality Modality Body Computed Tomogra phy 01/19/2024 12:4 5 PM EST Impressions 01/19/2024 12:52 PM EST 1. ??Postoperative repair of hiatal hernia without evidence of contrast extravasation. 2. ??Pneumomediastinum and right-sided pneumothorax with basilar atelectasis. -------- FINAL REPORT -------- Dictated By: Srinath Delvalle Dictated Date: 01/19/2024 12:45 ET Assigned Physician: Srinath Delvalle Reviewed and Electronically Signed By: Srinath Delvalle Signed Date: 01/19/2024 12:52 ET Workstation ID: [id number] Transcribed By: Self Edit Transcribed Date: 01/19/2024 12:45 ET Narrative 01/19/2024 12:[address] chest without contrast HISTORY: Evaluate for esophageal leak. ??Status post periesophageal hernia repair yesterday. COMPARISON: CT chest January 2024. ??Esophagram and radiograph performed same day.. TECHNIQUE: Noncontrast CT was performed of the chest. ??Enteric contrast was present following recent esophagram. ??Reformatted images were provided. DOSE: CTDIvol: 15.3mGy. ??Total exam DLP: 535.8mGy-cm FINDINGS: Enteric contrast is present throughout much of the esophagus following esophagram. ??Esophagram extends through the GE junction into the proximal stomach. ??No extravasation is visualized. ??Pneumomediastinum is noted surrounding the GE junction consistent with history of recent surgical repair. ??No significant hiatal hernia is evident. Small, nonspecific mediastinal lymph nodes are noted. ??Atherosclerotic disease of the aorta without aneurysm. Small right sided pneumothorax is noted. ??Atelectasis is present in the lungs posteriorly bilaterally. Chest wall appears within normal limits. ??No abnormal lymphadenopathy is noted. Limited views of the upper abdomen demonstrate minimal free air consistent with recent surgery. Mild degenerative changes of the spine. Procedure Note Srinath Delvalle MD - 01/19/2024 CT chest without contrast HISTORY: Evaluate for esophageal leak. Status post periesophageal herniarepair yesterday. COMPARISON: CT chest January 2024. Esophagram and radiograph performedsame day.. TECHNIQUE: Noncontrast CT was performed of the chest. Enteric contrastwas present following recent esophagram. Reformatted images wereprovided. DOSE: CTDIvol: 15.3mGy. Total exam DLP: 535.8mGy-cm FINDINGS: Enteric contrast is present throughout much of the esophagus followingesophagram. Esophagram extends through the GE junction into the proximalstomach. No extravasation is visualized. Pneumomediastinum is notedsurrounding the GE junction consistent with history of recent surgicalrepair. No significant hiatal hernia is evident. Small, nonspecific mediastinal lymph nodes are noted. Atheroscleroticdisease of the aorta without aneurysm. Small right sided pneumothorax is noted. Atelectasis is present in thelungs posteriorly bilaterally. Chest wall appears within normal limits. No abnormal lymphadenopathy isnoted. Limited views of the upper abdomen demonstrate minimal free air consistentwith recent surgery. Mild degenerative changes of the spine. IMPRESSION: 1. Postoperative repair of hiatal hernia without evidence of contrastextravasation. 2. Pneumomediastinum and right-sided pneumothorax with basilaratelectasis. -------- FINAL REPORT -------- Dictated By: Srinath Delvalle Dictated Date: 01/19/2024 12:45 ET Assigned Physician: Srinath Delvalle Reviewed and Electronically Signed By: Srinath Delvalle Signed Date: 01/19/2024 12:52 ET Workstation ID: [id number] Transcribed By: Self Edit Transcribed Date: 01/19/2024 12:45 ET Nona Kapadia [facility] IMG CT PROCEDURES * XR Abdomen 1 View (01/19/2024 12:07 PM EST) Anatomical Region Laterality Modality Body Radiographic Natasha ging 01/19/2024 12:5 9 PM EST Impressions 01/19/2024 1:02 PM EST Enteric contrast is noted in the distal esophagus and upper stomach consistent with recent esophagram. ??No visualized extravasation. ??Please see chest CT for further details. -------- FINAL REPORT -------- Dictated By: Srinath Delvalle Dictated Date: 01/19/2024 12:59 ET Assigned Physician: Srinath Delvalle Reviewed and Electronically Signed By: Srinath Delvalle Signed Date: 01/19/2024 13:02 ET Workstation ID: [id number] Transcribed By: Self Edit Transcribed Date: 01/19/2024 12:59 ET Narrative 01/19/2024 1:02 PM EST PROCEDURE: XR ABDOMEN 1 VIEW INDICATION: s/p hiatal hernia repair. Eval for extraluminal constast s/p swallow study. COMPARISON: Esophagram same day. ??CT examination performed same day available for review at time of interpretation. Procedure Note Srinath Delvalle MD - 01/19/2024 PROCEDURE: XR ABDOMEN 1 VIEW INDICATION: s/p hiatal hernia repair. Eval for extraluminal constast s/pswallow study. COMPARISON: Esophagram same day. CT examination performed same dayavailable for review at time of interpretation. IMPRESSION: Enteric contrast is noted in the distal esophagus and upper stomachconsistent with recent esophagram. No visualized extravasation. Pleasesee chest CT for further details. -------- FINAL REPORT -------- Dictated By: Srinath Delvalle Dictated Date: 01/19/2024 12:59 ET Assigned Physician: Srinath Delvalle Reviewed and Electronically Signed By: Srinath Delvalle Signed Date: 01/19/2024 13:02 ET Workstation ID: [id number] Transcribed By: Self Edit Transcribed Date: 01/19/2024 12:59 ET Laura DAILY IMG XR PROCEDURES * (ABNORMAL) Complete blood count (01/19/2024 10:18 AM EST) Only the most recent of2 resultswithin the time period is included. WBC 12.9(H) 4.8 - 10.8 K/mcL LAB HEMETOLOGY METHOD 01/19/2024 10:55 AM [facility] RBC 4.50 3.80 - 4.80 M/mcL LAB HEMETOLOGY METHOD 01/19/2024 10:55 AM [facility] Hemoglobin 12.1 11.5 - 16.0 g/dL LAB HEMETOLOGY METHOD 01/19/2024 10:55 AM [facility] Hematocrit 38.4 35.0 - 47.0 % LAB HEMETOLOGY METHOD 01/19/2024 10:55 AM [facility] MCV 84.6 79.0 - 98.0 FL LAB HEMETOLOGY METHOD 01/19/2024 10:55 AM [facility] MCH 26.7(L) 27.0 - 32.0 pcg LAB HEMETOLOGY METHOD 01/19/2024 10:55 AM [facility] MCHC 31.5(L) 32.0 - 37.0 g/dL LAB HEMETOLOGY METHOD 01/19/2024 10:55 AM [facility] RDW 13.0 11.0 - 15.0 % LAB HEMETOLOGY METHOD 01/19/2024 10:55 AM [facility] Platelets 419(H) 130 - 400 K/mcL LAB HEMETOLOGY METHOD 01/19/2024 10:55 AM EST [facility] MPV 10.1 7.0 - 11.0 FL LAB HEMETOLOGY METHOD 01/19/2024 10:55 AM EST [facility] NRBC 0.0 <1.0 % LAB HEMETOLOGY METHOD 01/19/2024 10:55 AM [facility] NRBC Absolute 0.00 <0.10 K/mcL LAB HEMETOLOGY METHOD 01/19/2024 10:55 AM EST [facility] Blood Venous blood specimen / Unknown Venipuncture / Unknown 01/19/2024 10:18 AM EST 01/19/2024 10:31 AM EST Laura DAILY LAB BLOOD ORDERABLES [facility] [address] [place] [address], * (ABNORMAL) Basic metabolic panel (01/19/2024 10:18 AM EST) Only the most recent of2 resultswithin the time period is included. Sodium 140 133 - 145 mmol/L LAB CHEMISTRY METHOD 01/19/2024 12:46 PM [facility] Potassium 4.7 3.5 - 5.5 mmol/L LAB CHEMISTRY METHOD 01/19/2024 12:46 PM [facility] Chloride 106 96 - 110 mmol/L LAB CHEMISTRY METHOD 01/19/2024 12:46 PM [facility] CO2 28 21 - 32 mmol/L LAB CHEMISTRY METHOD 01/19/2024 12:46 PM [facility] Anion Gap 6 3 - 11 LAB CHEMISTRY METHOD 01/19/2024 12:46 PM [facility] Glucose 104(H) 70 - 100 mg/dL LAB CHEMISTRY METHOD 01/19/2024 12:46 PM [facility] BUN 9 5 - 25 mg/dL LAB CHEMISTRY METHOD 01/19/2024 12:46 PM EST [facility] Creatinine 0.65 0.50 - 1.10 mg/dL LAB CHEMISTRY METHOD 01/19/2024 12:46 PM [facility] eGFR 96 >=60 mL/min/1. 73m2 LAB CHEMISTRY METHOD 01/19/2024 12:46 PM EST [facility] Comment:Calculation based on the??Chronic Kidney Disease Epidemiology Collaboration (CKD-EPI) equation refit??without adjustment for race. BUN/Creatinine Ratio 13.8 LAB CHEMISTRY METHOD 01/19/2024 12:46 PM EST [facility] Calcium 9.7 8.5 - 10.5 mg/dL LAB CHEMISTRY METHOD 01/19/2024 12:46 PM [facility] Blood Venous blood specimen / Unknown Venipuncture / Unknown 01/19/2024 10:18 AM EST 01/19/2024 10:31 AM EST Laura DAILY LAB BLOOD ORDERABLES [facility] [address] [place] [address], [place] [phone] * (ABNORMAL) Phosphorus (01/19/2024 5:58 AM EST) Phosphorus 4.8(H) 2.5 - 4.5 mg/dL LAB CHEMISTRY METHOD 01/19/2024 7:57 AM EST [facility] Blood Venous blood specimen / Unknown Venipuncture / Unknown 01/19/2024 5:58 AM EST 01/19/2024 7:05 AM EST Laura DAILY LAB BLOOD ORDERABLES [facility] [address] [place] [address], [place] [phone] * (ABNORMAL) POCT Glucose, blood (01/18/2024 8:19 PM EST) Glucose POCT 141(H) 70 - 100 mg/dL 01/18/2024 8:19 PM EST [facility] Blood Capillary blood specimen / Unknown 01/18/2024 8:19 PM EST 01/18/2024 8:20 PM EST Emily Ho MD LAB POINT OF CARE TE ST DOCKED DEVICE UNSOLICITED RESULTS [facility] [address] [place] [address], [place] [phone] * Tissue exam (01/18/2024 9:24 AM EST) Only the most recent of2 resultswithin the time period is included. Final Diagnosis A. Hernia sac, paraesophageal: -HERNIA SAC B. Skin, abdominal-excisio n: -MELANOCYTIC NEVUS, INTRADERMAL TYPE 01/19/2024 12:08 PM EST [facility] Gross Description A. Abdominal Wall, paraesophageal hernia sac: Labeled paraesophageal hernia sac . Received in formalin is a 6.1 x 4.3 x 2.1 cm aggregate of yellow lobular focally cauterized adipose tissue which is partially surfaced by a pink-purple smooth glistening membranous tissue. The cut surfaces are comprised of glistening yellow adipose tissue. No masses or lesions are appreciated. Shot Blast Equipment Operator sections are submitted one cassette, two pieces. B. Abdominal Wall, abdominal skin lesion: Labeled abdominal wall skin lesion . Received in formalin is a 1.9 x 0.8 cm and oriented velasquez-white skin ellipse excised to depth of 0.4 cm. Epidermis displays a 0.8 x 0.5 x 0.1 cm velasquez-brown nodule which comes to 0.1 cm of the margin. The specimen is inked blue and sectioned in a cruciate manner. Shot Blast Equipment Operator sections, to include the entirety of the nodule, are submitted in two cassettes, with the unoriented cruciate tips in cassette one and the nodule in cassette two, two pieces each. KATLYN 01/19/2024 12:08 PM EST [facility] Disclaimer Unless otherwise specified, all tissue is 10% NB formalin fixed and paraffin embedded. 01/19/2024 12:08 PM EST [facility] Tissue Abdominal wall / Unknown 01/18/2024 9:24 AM EST 01/18/2024 12:15 PM EST Skin (tissue) specimen (specimen) Abdominal wall / Unknown 01/18/2024 10:33 AM EST 01/18/2024 12:15 PM EST Emily Ho MD LAB PATHOLOGY ORDERA BLES [facility] [address] [place] [address], * TH AN ENDOTRACHEAL(NO CHARGE) (01/18/2024 7:38 AM EST) Narrative Enrique Tracey CRNA - 01/18/2024 7:38 AM EST Enrique Tracey CRNA ? 01/18/2024 12:45 PM General Information and Staff Patient location during procedure: OR Resident/CUSTOMER SOLUTIONS COORDINATOR: PHANI Fernandez Performed: resident/CUSTOMER SOLUTIONS COORDINATOR/CAA Performed by: PHANI Fernandez Authorized by: Roque Sheriff MD ?? Intubation Airway not difficult Urgency: elective Final Airway Details Successful airway: ETT Cuffed: yes Successful intubation technique: direct laryngoscopy Endotracheal tube insertion site: oral Blade: Minh Blade size: #3 ETT size (mm): 7.5 Placement verified by: chest auscultation and capnometry Inital cuff pressure (cm H2O): 21 Cuff volume (mL): 8 Measured from: lips Number of attempts at approach: 1 Number of other approaches attempted: 1Final airway type: endotracheal airway Indications and Patient Condition Indications for airway management: anesthesia Spontaneous Ventilation: absent Sedation level: Yes Preoxygenated: yes Soft Tissue Damage: No Dentition Unchanged: Yes Patient position: sniffing MILS maintained throughout Mask difficulty assessment: 1 - vent by mask Roque Sheriff MD ANESTHESIA ORDERABLE S * EGD Anesthesia - MAC; [facility] ENDOSCOPY (01/13/2024 9:19 AM EST) Anatomical Region Laterality Modality Endoscopy 01/13/2024 8:59 AM EST Narrative 01/13/2024 9:[address] [facility] Patient Name: Marni Esteves ?Procedure Date: 01/13/2024 8:59 AM ? Date of : 1955 ?Age: 68 Room: ROOM 17 ? Gender: Female Note Status: Finalized ?Attending MD: Sher Simmons MD, Procedure Date No Time: 01/13/2024 ? Procedure: ? Upper GI endoscopy Indications: ? Esophageal reflux symptoms that persist despite ? appropriate therapy, Positive celiac serologies Providers: ? Sher Simmons MD Referring MD: ?Eulogio Nick MD Medicines: ? Monitored Anesthesia Care Complications: ? No immediate complications. Estimated blood loss: ? Minimal. Estimated Blood Loss: ? Estimated blood loss was minimal. Procedure: ? Pre-Anesthesia Assessment: ? - Prior to the procedure, a History and Physical was ? performed, and patient medications and allergies were ? reviewed. The patient is competent. The risks and ? benefits of the procedure and the sedation options and ? risks were discussed with the patient. All questions ? were answered and informed consent was obtained. ? Patient identification and proposed procedure were ? verified by the physician, the nurse, the deck cadet ? and the flight test data acquisition technician in the pre-procedure area in the ? endoscopy suite. Mental Status Examination: alert and ? oriented. Airway Examination: normal oropharyngeal ? airway and neck mobility. Respiratory Examination: ? clear to auscultation. CV Examination: normal. ? Prophylactic Antibiotics: The patient does not require ? prophylactic antibiotics. Prior Anticoagulants: The ? patient has taken no anticoagulant or antiplatelet ? agents. ASA Grade Assessment: II - A patient with mild ? systemic disease. After reviewing the risks and ? benefits, the patient was deemed in satisfactory ? condition to undergo the procedure. The anesthesia ? plan was to use monitored anesthesia care (MAC). ? Immediately prior to administration of medications, ? the patient was re-assessed for adequacy to receive ? sedatives. The heart rate, respiratory rate, oxygen ? saturations, blood pressure, adequacy of pulmonary ? ventilation, and response to care were monitored ? throughout the procedure. The physical status of the ? patient was re-assessed after the procedure. ? After obtaining informed consent, the endoscope was ? passed under direct vision. Throughout the procedure, ? the patient's blood pressure, pulse, and oxygen ? saturations were monitored continuously. The Endoscope ? was introduced through the mouth, and advanced to the ? second part of duodenum. The upper GI endoscopy was ? accomplished without difficulty. The patient tolerated ? the procedure well. Findings: ?Patchy mild mucosal changes characterized by ? congestion and discoloration were found in the ? duodenal bulb and in the second portion of the ? duodenum. Biopsies were taken with a cold forceps for ? histology. Estimated blood loss was minimal. ? Segmental moderate inflammation characterized by ? congestion (edema) and erythema was found in the ? gastric body and in the gastric antrum. Biopsies were ? taken with a cold forceps for histology. Estimated ? blood loss was minimal. ? A large hiatal hernia was found. The proximal extent ? of the gastric folds (end of tubular esophagus) was 33 ? cm from the incisors. The hiatal narrowing was 40 cm ? from the incisors. The Z-line was 33 cm from the ? incisors. ? The lower third of the esophagus was mildly tortuous. ? 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 Impression: ?- Mucosal changes in the duodenum. Biopsied. ? - Gastritis. Biopsied. ? - Large hiatal hernia. ? - Tortuous esophagus. Recommendation: ?- Discharge patient to home. ? - Await pathology results. ? - Return to GI clinic as previously scheduled. Procedure Code(s): ? --- Professional --- ? 69304, Esophagogastroduodenoscopy, flexible, ? transoral; with biopsy, single or multiple Diagnosis Code(s): ? --- Professional --- ? R76.8, Other specified abnormal immunological findings ? in serum ? K44.9, Diaphragmatic hernia without obstruction or ? jenagrene CPT copyright 2020 [employer]. All rights reserved. The codes documented in this report are preliminary and upon corporate real estate specialist review may be revised to meet current compliance requirements. Sher Simmons MD Sher Simmons MD 01/13/2024 9:21:24 AM This report has been signed electronically.Sher Simmons MD Number of Addenda: 0 Note Initiated On: 01/13/2024 8:59 AM Scope In: Scope Out: ? Endoscopy Department at [facility] - [address] [place] [address], ? DAVID Paulson [phone] Procedure Note Sher Simmons MD - 01/13/2024 [facility] Patient Name: Marni Esteves Procedure Date: 01/13/2024 8:59 AM Date of : 1955 Age: 68 Room: ROOM 17 Gender: Female Note Status: Finalized Attending MD: Sher Simmons MD, Procedure Date No Time: 01/13/2024 Procedure: Upper GI endoscopy Indications: Esophageal reflux symptoms that persist despite appropriate therapy, Positive celiac serologies Providers: Sher Simmons MD Referring MD: Eulogio Nick MD Medicines: Monitored Anesthesia Care Complications: No immediate complications. Estimated blood loss: Minimal. Estimated Blood Loss: Estimated blood loss was minimal. Procedure: Pre-Anesthesia Assessment: - Prior to the procedure, a History and Physicalwas performed, and patient medications and allergieswere reviewed. The patient is competent. The risks and benefits of the procedure and the sedation optionsand risks were discussed with the patient. Allquestions were answered and informed consent was obtained. Patient identification and proposed procedure were verified by the physician, the nurse, theanesthetist and the flight test data acquisition technician in the pre-procedure area in the endoscopy suite. Mental Status Examination: alertand oriented. Airway Examination: normal oropharyngeal airway and neck mobility. Respiratory Examination: clear to auscultation. CV Examination: normal. Prophylactic Antibiotics: The patient does notrequire prophylactic antibiotics. Prior Anticoagulants: The patient has taken no anticoagulant or antiplatelet agents. ASA Grade Assessment: II - A patient withmild systemic disease. After reviewing the risks and benefits, the patient was deemed in satisfactory condition to undergo the procedure. The anesthesia plan was to use monitored anesthesia care (MAC). Immediately prior to administration of medications, the patient was re-assessed for adequacy to receive sedatives. The heart rate, respiratory rate, oxygen saturations, blood pressure, adequacy of pulmonary ventilation, and response to care were monitored throughout the procedure. The physical status ofthe patient was re-assessed after the procedure. After obtaining informed consent, the endoscope was passed under direct vision. Throughout theprocedure, the patient's blood pressure, pulse, and oxygen saturations were monitored continuously. TheEndoscope was introduced through the mouth, and advanced tothe second part of duodenum. The upper GI endoscopy was accomplished without difficulty. The patienttolerated the procedure well. Findings: Patchy mild mucosal changes characterized by congestion and discoloration were found in the duodenal bulb and in the second portion of the duodenum. Biopsies were taken with a cold forcepsfor histology. Estimated blood loss was minimal. Segmental moderate inflammation characterized by congestion (edema) and erythema was found in the gastric body and in the gastric antrum. Biopsieswere taken with a cold forceps for histology. Estimated blood loss was minimal. A large hiatal hernia was found. The proximalextent of the gastric folds (end of tubular esophagus) was33 cm from the incisors. The hiatal narrowing was 40cm from the incisors. The Z-line was 33 cm from the incisors. The lower third of the esophagus was mildlytortuous. A single area of ectopic gastric mucosa was foundin the upper third of the esophagus. Impression: - Mucosal changes in the duodenum. Biopsied. - Gastritis. Biopsied. - Large hiatal hernia. - Tortuous esophagus. Recommendation: - Discharge patient to home. - Await pathology results. - Return to GI clinic as previously scheduled. Procedure Code(s): --- Professional --- 42498, Esophagogastroduodenoscopy, flexible, transoral; with biopsy, single or multiple Diagnosis Code(s): --- Professional --- R76.8, Other specified abnormal immunologicalfindings in serum K44.9, Diaphragmatic hernia without obstruction or gangrene CPT copyright 2020 [employer]. All rights reserved. The codes documented in this report are preliminary and upon corporate real estate specialist reviewmay be revised to meet current compliance requirements. Sher Simmons MD Sher Simmons MD 01/13/2024 9:21:24 AM This report has been signed electronically.Sher Simmons MD Number of Addenda: 0 Note Initiated On: 01/13/2024 8:59 AM Scope In: Scope Out: Endoscopy Department at [facility] - [address] [place] [phone] Eulogio Nick MD GI~PROCEDURE ORDERAB LES * (ABNORMAL) Lipid panel (09/20/2023) LDL/HDL Ratio 5(A) 0 - 4 Triglycerides 245(A) 0 - 150 mg/dL Cholesterol 275(A) 0 - 200 mg/dL HDL 60 40 mg/dL LDL Cholesterol 166(A) 0 - 100 mg/dL Blood Venous blood specimen / Unknown Historical Provider LAB BLOOD ORDERAB LES * Colonoscopy (10/07/2022) Colonoscopy no interpretation , abstracted Anatomical Region Laterality Modality Other Historical Provider [facility] * DXA BONE DENSITY STUDY 1+ SITS AXIAL SKEL (03/05/2022 1:21 PM EST) Anatomical Region Laterality Modality Bone Densitometr y 02/05/2022 9:18 AM EST Narrative 03/05/2022 7:13 PM EST BONE DENSITY ? Lumbar Spine T-score is +0.7 ?? (SD relative to 20-29 y/o adult) Z-score is +2.6 ??(SD relative to age matched peers) This is normal by criteria defined by the WHO. Left Hip T-score is +0.3 Z-score is +1.9 This is normal by criteria defined by the WHO. Impression: Based on the World Health Organization criteria, Marni Esteves should be classified as having normal bone density. The [facility] Department of Internal Medicine recommends using National Osteoporosis Foundation (NOF) guidelines in treatment decisions related to osteoporosis. NOF guidelines suggest considering treatment for postmenopausal women and men aged 50 or older presenting with the following: History of hip or vertebral fracture. T-score less than or equal to -2.5 (DXA) at the femoral neck, total hip, or spine, after appropriate evaluation to exclude secondary causes. Low bone mass (T-score between -1.0 and -2.5 at the femoral neck or spine) AND a 10-year probability of a hip fracture greater than or equal to 3% OR a 10-year probability of a major osteoporosis-related fracture greater than or equal to 20% based on the [place]-adapted WHO algorithm Please note that all treatment decisions require clinical judgment and consideration of individual patient factors, including patient preferences, co-morbidities, previous drug use, risk factors not captured in the FRAX model (e.g., frailty, falls, vitamin D deficiency, increased bone turnover, interval significant decline in bone density) and possible under- or over-estimation of fracture risk by FRAX. Procedure Note Brandee Moise MD - 04/13/2023 BONE DENSITY Lumbar Spine T-score is +0.7 (SD relative to 20-29 y/o adult) Z-score is +2.6 (SD relative to age matched peers) This is normal by criteria defined by the WHO. Left Hip T-score is +0.3 Z-score is +1.9 This is normal by criteria defined by the WHO. Impression: Based on the World Health Organization criteria, Marni Esteves shouldbe classified as having normal bone density. The [facility] Department of Internal Medicine recommendsusing National Osteoporosis Foundation (NOF) guidelines in treatmentdecisions related to osteoporosis. NOF guidelines suggest consideringtreatment for postmenopausal women and men aged 50 or older presentingwith the following: History of hip or vertebral fracture. T-score less than or equal to -2.5 (DXA) at the femoral neck, total hip,or spine, after appropriate evaluation to exclude secondary causes. Low bone mass (T-score between -1.0 and -2.5 at the femoral neck or spine)AND a 10-year probability of a hip fracture greater than or equal to 3% ORa 10-year probability of a major osteoporosis-related fracture greaterthan or equal to 20% based on the [place]-adapted WHO algorithm Please note that all treatment decisions require clinical judgment andconsideration of individual patient factors, including patientpreferences, co-morbidities, previous drug use, risk factors not capturedin the FRAX model (e.g., frailty, falls, vitamin D deficiency, increasedbone turnover, interval significant decline in bone density) and possibleunder- or over-estimation of fracture risk by FRAX. Caro DAILY [facility] PROCEDURES * Hepatitis C Screening (09/18/2020) Pathologist [facility] Hepatitis C Screening abstracted Historical Provider MD PAVAN Ignacio from Last 3 Months or Most Recently Relevant to Health Maintenance Advance Directives Documents on File Type Date Recorded Patient Shot Blast Equipment Operator Expl anation Health Care Decision (hx) 01/09/2023 AD RÍOS DIRECTIVE Health Care Decision (hx) 01/09/2023 AD RÍOS DIRECTIVE Health Care Decision (hx) 01/09/2023 AD RÍOS DIRECTIVE * Full Code - Default (Latest Code Status on File) Date Activated Date Inactivated Comments 01/18/2024 11:37 AM 01/19/2024 8:08 PM This is o rder is used when code status has not been discussed with the patient, or code status is otherwise unknown/unconfirmed To update the patient's code status, place a code status order. Do not modify or discontinue any currently active code status orders. * Full Code - Default Date Activated Date Inactivated Comments 01/18/2024 11:37 AM 01/18/2024 11:37 AM This is order is used when code status has not been discussed with the patient, or code status is otherwise unknown/unconfirmed To update the patient's code status, place a code status order. Do not modify or discontinue any currently active code status orders. * Full Code - Default Date Activated Date Inactivated Comments 01/18/2024 11:05 AM 01/18/2024 11:37 AM This is order is used when code status has not been discussed with the patient, or code status is otherwise unknown/unconfirmed To update the patient's code status, place a code status order. Do not modify or discontinue any currently active code status orders. Healthcare Agents on File Name Relationship Healthcare Agent Relationship Communication Ruddy Esteves Spouse Health Care Agent Care Teams Employee Benefits Coordinator Relationship Specialty Start Date End Date Belia Villavicencio MD [address] [place] [id number] PCP - General Internal Medicine 01/17/24
--- OUTSIDE RECORDS SUMMARY | 2024-04-14 14:41 | XMS_ITS | Encounter Summary ---
Author Organization [place] [address] Care Team Providers Care Hypoid Gear Generator Name Role Phone Belia Villavicencio MD Primary Care Prov ider Reason for Visit * Reason Comments Medicare Annual Wellness Visit Subsequen t Encounter Details Date Type Department Care Team (Late st Contact Info) Description 03/27/2024 1:30 PM EST Telemedicine Adult Medicine - [place] [address] [place] [id number] Medicare annual wellness visit, subsequent (Primary Dx) Social History Tobacco Use Types Packs/Day Years [...] care for your loved ones. For example, early childhood teacher assistant or elderly care for an older adult? [...] as of this encounter Progress Notes * Angélica Devine RN - 03/27/2024 1:30 PM EST Subjective Marni Esteves is a 68 y.o. female who presents for a Subsequent Medicare Annual Wellness Visit. HPI Current Providers List: Patient Care Team: Belia Villavicencio MD as PCP - General (Internal Medicine) Srinath Mercado MD as Consulting Physician (Cardiology) Peyton Castillo NP as Nurse Practitioner (Cardiology) ABIMBOLA Grimaldo as Physician Logistics Project Manager (Thoracic Surgery) Risk Assessments There is no height or weight on file to calculate BMI. The BMI na Calculated fall risk level: low Depression Risk Score: 0 Depression Severity: None-minimal Proposed Treatment Actions: None Hearing No data recorded Vision Screening No data recorded Mini Cog No data recorded STEADI Fall Risk Have you fallen in the past year? yes Number of falls in the past year?1 Any injuries from falls? no Feels unsteady when standing or walking? no Are you worried about falling? no Activity of Daily Living (ADLs) Do you need help from others for your personal care such as eating, dressing, toileting, or gettingaround the house?: No Do you experience incontinence?: No Instrumental Activities of Daily Living (IADLs) Do you need help with using the telephone?: No Do you need help with shopping?: No Do you need help with food preparation?: No Do you need help with housekeeping?: No Do you need help with laundry?: No Do you need help handling finances?: No Do you drive?: Yes Do you manage your own medication?: Yes, independent Health Status In general, the patient reports health as: good In general, patient reports life as: good Patient reports sleep pattern as: restless Have you seen a dentist in the last year?: Yes Physical Activity Do you exercise for about 20 minutes or more three days a week?: Yes, most of the time Nutritional Assessment Do you eat a balanced diet including daily serving of fruits, vegetables, and whole grains?: Yes, most of the time Depression Screening (PHQ2) Will the patient answer the depression risk questions?: Y Over the last 2 weeks, how often have you been bothered by little interest or pleasure in doing things?: 0 Over the last 2 weeks, how often have you been bothered by feeling down, depressed, or hopeless?: 0 Depression Risk: 0 Additional Depression Screening (PHQ9) Depression Risk Score NEW: 0 Opioid Risk Tool No data recorded [facility] Mental Status ([facility]) No data recorded Comprehensive Medical and Social History Patient Active Problem List Diagnosis Anemia Arthritis GERD (gastroesophageal reflux disease) Giant cell arteritis with polymyalgia rheumatica (CMS/HCC) Hypercholesteremia Hypertension Hypothyroid Incarcerated paraesophageal hernia Lumbago Obesity (BMI 30.0-34.9) Obstructive sleep apnea Palpitations Panic disorder Positive DAREN (antinuclear antibody) Radiculitis, lumbosacral Past Medical History: Diagnosis Date Anemia Anxiety Celiac disease CPAP (continuous positive airway pressure) dependence GERD (gastroesophageal reflux disease) Hypertension Hypothyroidism Paraesophageal hernia PONV (postoperative nausea and vomiting) Rheumatoid arthritis (CMS/HCC) 01/2024 Sleep apnea TIA (transient ischemic attack) 03/2022 Family History Problem Relation Name Age of Onset Hypertension Mother Anxiety disorder Mother Arthritis Mother Stroke Father Other cancer Sister Rheum arthritis Sister Rheum arthritis Sister Other (ca oral) Brother Other (glutin senitive) Daughter No Known Problems Son reports that she quit smoking about 26 years ago. Her smoking use included cigarettes. She has never used smokeless tobacco. She reports current alcohol use. She reports that she does not use drugs. Past Surgical History: Procedure Laterality Date CHOLECYSTECTOMY HYSTERECTOMY PARAESOPHAGEAL HERNIA REPAIR N/A 01/18/2024 w/ obstruction Allergies Allergen Reactions Hydralazine Cardiac Issue Severe chest pain Gphqmwy-Ije-Nmb Reductase Inhibitors Muscular Issues Gluten Itching and GI intolerance Sulfa (Sulfonamide Antibiotics) Rash Current Outpatient Medications Medication Sig Dispense Refill atenoloL (TENORMIN) 25 mg tablet Take 0.5 tablets (12.5 mg total) by mouth 1 (one) time each day. cetirizine (ZyrTEC) 10 mg tablet Take 1 tablet (10 mg total) by mouth 1 (one) time each day if needed for allergies. clonazePAM (KlonoPIN) 0.5 mg tablet TAKE 1 TABLET BY MOUTH 3 TIMES DAILY FOR 28 DAYS. 84 tablet 2 levothyroxine (SYNTHROID, LEVOTHROID) 100 mcg tablet Take 1 tablet (100 mcg total) by mouth 1 (one)time each day before breakfast. 90 tablet 0 spironolactone (Aldactone) 50 mg tablet Take 1 tablet (50 mg total) by mouth 1 (one) time each day.30 each 11 amoxicillin (AMOXIL) 500 mg capsule Take 2 capsules (1,000 mg total) by mouth 2 (two) times a day. (Patient not taking: Reported on 03/27/2024) 56 capsule 0 famotidine (PEPCID) 20 mg tablet TAKE 1 TABLET BY MOUTH EVERY DAY (Patient not taking: Reported on 03/27/2024) 90 tablet 1 ferrous sulfate 325 mg (65 mg elemental iron) tablet TAKE 1 TABLET BY MOUTH EVERY DAY (Patient not taking: Reported on 03/27/2024) 90 tablet 1 No current facility-administered medications for this visit. Review of Systems Objective: There were no vitals filed for this visit. Physical Exam Assessment/Plan: Plan Health Maintenance Topic Date Due Breast Cancer Screening Never done Pneumococcal Vaccine: 65+ Years (1 of 2 - PCV) Never done Hepatitis A Vaccines (1 of 2 - Risk 2-dose series) Never done Zoster Vaccines (1 of 2) Never done Hepatitis B Vaccines (1 of 3 - Risk 3-dose series) Never done RSV Immunization Patients 60+ Years Old (1 - Risk 60-74 years 1-dose series) Never done Depression Screening Never done Social Influencers of Health Screening Never done DTaP,Tdap,and Td Vaccines (3 - Td or Tdap) 02/06/2023 Medicare Annual Wellness Visit 08/27/2023 Influenza Vaccine (1) 11/07/2023 COVID-19 Vaccine ( - 2023- season) 2023 Hypertension/CHF/CAD Annual BMP Blood Test 02/07/2025 Falls Risk Assessment 03/27/2025 Cholesterol Screening (Lipid Panel) 09/19/2028 Osteoporosis Screening (Bone Density Screening) 03/05/2032 Colorectal Cancer Screening: Colonoscopy 10/07/2032 Hepatitis C Screening Completed HIB Vaccines Aged Out IPV Vaccines Aged Out MMR Vaccines Aged Out Varicella Vaccines Aged Out Meningococcal ACWY Vaccine Aged Out HPV Vaccines Aged Out RSV Immunization Patients Under 20 months Aged Out Code status: Prior Preventative recommendations were reviewed and discussed with the patient. During the visit we discussed: na Advanced Directives: na Patient Instructions (the written plan) were given to the patient. na No follow-ups on file. * Angélica Devine RN - 03/27/2024 1:30 PM EST Patient opted for an audio-only visit because patient doesn't have acess to a computer or smart phone I ensured compliance with state and federal regulations by utilizing audio only telecommunication technology. Through verbal confirmation, I verified the patient???s identity and provided information on telephonic delivery of care, HIPAA privacy, and the risks of communicating over the phone. The patient acknowledged the limitations of treatment via telephone and consented to the audio visit. They also confirmed their comfort in a quiet and private location to discuss their health freely. The patient was informed that the visit would be submitted to their insurance,and any applicable co-pay or deductible would be their responsibility. Additionally, if the patient is Limited EnglishProficient, deaf, or hard of hearing, speech impaired, or has another disability which impairs their ability to communicate, the services of a qualified systems coordinator will be provided during the visit. Patients Location: home Additional individuals participating in remote visit: self Total Time: 30 minutes Provider's Location: providers office documented in this encounter Plan of Treatment Upcoming Encounters Date Type Department Care Team (Late st Contact Info) Description 04/18/2024 11:[address] Scan - [address] [phone] 09/29/2024 1:15 PM EDT Office Visit Adult Medicine - [place] [address] [place] [address] Belia Villavicencio MD [address] [place] [address] documented as of this encounter Visit Diagnoses Diagnosis Medicare annual wellness visit, subsequent- Primary documented in this encounter Additional Health Concerns Assessment Noted Time PHQ-9 Depression Total Score: 0 03/27/19 2:03 PM EST documented as of this encounter Care Teams Hypoid Gear Generator Relationship Specialty Start Date End Date Belia Villavicencio MD [address] [place] [address] PCP - General Internal Medicine 01/17/24 documented as of this encounter
--- OUTSIDE RECORDS SUMMARY | 2024-04-14 14:41 | XMS_ITS | Patient Health Record ---
Author Organization [facility] Address [address] [place] [address] Care Team Providers Care Parimutuel Ticket Cashier Name Role Phone SHANIQUA FERNANDEZ MD Primary Care Provider Unavail able Heena Brasher Unavailable [phone] Reason For Referral No Information Medications Medication SIG (Take, Route, Frequency, Duration) Notes Start Date End Date Status Levothyroxine Sodium 112 MCG 1 tablet Orally Once a day Active clonazePAM 0.5 MG 1 tablet Orally Thre e x a day Active Atenolol 100 MG 1 tablet Orally Once a day Active Lisinopril 5 MG 1 tablet Orally Once a day Active Estradiol 0.025 MG/24HR 1 patch to skin Transdermal weekly for 30 day(s) 03/21/2015 Active Omeprazole 20 MG 1 capsule Orally Onc e a day Active Plan Of Treatment No Information Medical (General) History Medical History History ICD Code Essential (primary) hypertension I10 Anxiety disorder, unspecified F41.9 Panic disorder [episodic paroxysmal anxi ety] without agoraphobia F41.0 Diverticulitis of intestine, part unspecified, without perforation or abscess without bleeding K57.92 Anemia, unspecified D64.9 Surgical History Surgery Date(Month/Year) Cholecystectomy Hysterectomy Hospitalization History Reason Date(Month/Year) 2 Vaginal Deliveries See Surgical Hx
--- OUTSIDE RECORDS SUMMARY | 2024-04-14 14:41 | XMS_ITS | Encounter Summary ---
Author Organization [facility] [address] Care Team Providers Care Carbon Paste Mixer Operator Name Role Phone Belia Villavicencio MD Primary Care Prov ider Reason for Visit * Reason Comments Headache BARFIELD, face pressure, S T at night. Onset Wednesday Encounter Details Date Type Department Care Team (Late st Contact Info) Description 04/12/2024 3:30 PM EST Office Visit [facility] - [place] [address] [place] [address] Sue Williamson NP [address] [place], [place] [id number] Acute non-recurrent maxillary sinusitis (Primary Dx) Social History Tobacco Use Types [...] for your loved ones. For example, child care director or elderly care for an older adult? [...] on file documented as of this encounter Last Filed Vital Signs Vital Sign Reading Time Taken Comments Blood Pressure 148/88 04/12/2024 3:45 PM EST Pulse 71 04/12/2024 3:45 PM EST Temperature 36 ??C (96.8 ??F) 04/12/2024 3:45 PM EST Respiratory Rate - - Oxygen Saturation 98% 04/12/2024 3:45 PM EST Inhaled Oxygen Concentration - - Weight - - Height - - Body Mass Index - - documented in this encounter Ordered Prescriptions Prescription Sig Dispensed Refills Start Date End cefadroxil 500 mg capsule Take 1 capsule (500 mg total) by mouth 2 (two) times a day for 10 days. 20 capsule 04/12/2024 04/22/2024 documented in this encounter Progress Notes * Brandon Jimenez - 04/12/2024 3:30 PM ESTAddended by: BRANDON JIMENEZ on: 04/13/2024 09:54 AM Modules accepted: Orders * Sue Williamson NP - 04/12/2024 3:30 PM EST CHIEF COMPLAINT: Headache (BARFIELD, face pressure, ST at night. Onset Wednesday) HPI: Marni Esteves is a 68 y.o. old female who complains of sinus pain pressure headache recently treated for sinus infection with Augmentin ROS: Remainder of the 12 point review of symptoms unremarkable except for those idenitified in the HPI. 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) 12/29/2022 Palpitations 03/30/2022 Positive DAREN (antinuclear antibody) 06/18/2021 Obesity (BMI 30.0-34.9) 06/17/2021 Obstructive sleep apnea 06/17/2021 Lumbago 10/29/2009 Radiculitis, lumbosacral 10/29/2009 Anemia 10/04/2009 Rheumatoid arthritis (CMS/HCC) 10/04/2009 Hypercholesteremia 10/04/2009 Hypertension 10/04/2009 Hypothyroid 10/04/2009 Panic disorder 10/04/2009 Past Surgical History: Procedure Laterality Date CHOLECYSTECTOMY HYSTERECTOMY PARAESOPHAGEAL HERNIA REPAIR N/A 01/18/2024 w/ obstruction SOCIAL HISTORY: Social History Tobacco Use Smoking status: Former Current packs/day: 0.00 Types: Cigarettes Quit date: 1998 Years since quittin.1 Smokeless tobacco: Never Tobacco comments: QUIT SMOKING 1998 Substance Use Topics Alcohol use: Yes Comment: rarely- red wine FAMILY HISTORY: Family History Problem Relation Name Age of Onset Hypertension Mother Anxiety disorder Mother Arthritis Mother Stroke Father Other cancer Sister Rheum arthritis Sister Rheum arthritis Sister Other (ca oral) Brother Other (glutin senitive) Daughter No Known Problems Son Family Status Relation Name Status Mother Alive Father Sister Sister Alive Brother Daughter Alive Son Alive No partnership data on file MEDICATIONS DISCONTINUED/REORDERED: There are no discontinued medications. ACTIVE MEDICATIONS: No outpatient medications have been marked as taking for the 04/12/24 encounter (Office Visit) with Sue Williamson NP. ALLERGIES: Allergies Allergen Reactions Hydralazine Cardiac Issue Severe chest pain Ovtalhp-Hzf-Rxm Reductase Inhibitors Muscular Issues Gluten Itching and GI intolerance Sulfa (Sulfonamide Antibiotics) Rash PHYSICAL EXAM: Vitals: 04/12/24 1545 BP: (!) 148/88 Pulse: 71 Temp: 36 ??C (96.8 ??F) SpO2: 98% CONSTITUTIONAL: alert, calm, cooperative, in no acute distress HEAD: normocephalic, atraumatic EYES: pupils equal, round, reactive to direct and consensual light, accommodation reflex present, extraocular movement intact (EOMI), sclera non-icteric EARS: auditory canal clear, tympanic membrane intact and clear with anterior light reflex, no air-fluid levels bilaterally NOSE: septum intact, no lesions, no discharge ORAL CAVITY: mucosa moist, gums normal, palate normal, tongue midline THROAT: no erythema, no exudate, pharynx normal, tonsils normal, uvula midline NECK/THYROID: neck range of motion grossly intact LYMPH: no cervical or supraclavicular lymphadenopathy SKIN: warm and dry HEART: S1, S2 normal, regular rate and rhythm, no murmurs, rubs, gallops LUNGS: clear to auscultation bilaterally, no wheezes, rales, rhonchi NEUROLOGIC: alert and oriented, no tremor, cranial nerves II-XII grossly intact PSYCH: mood/affect full range, speech clear, good eye contact, cooperative with exam LABS/IMAGING: COVID: Negative Flu: Negative IMPRESSION: Sinusitis PLAN: The patient's PMH, problem list and medications were reviewed in reference to the above diagnosis/diagnoses. *. Based on History, ROS, HPI and PE, covid test performed (negative). *. Based on HPI, ROS and PE, suggestive of bacterial sinusitis. *. Prescribed Duricef. Educated patient to complete entire course of antibiotic. Proper dosing and method to take medication addressed with patient. The risks and benefits of this medication were discussed with the patient. The patient understands the potential side effects and basic interactions of this medication. The patient is asked to call me or my colleagues if they begin to experience any difficulties with this medication. *. Educated pt to rest,proper hydration, warm steamy showers *. Advised to follow up with PCP in 14 days, if symptoms are not improving. Advised to follow up with PCP immediately for new or worsening symptoms. *. Discussed warnings signs and symptoms that would require immediate follow up at UC/ER. Patient verbalized understanding and agreement with the plan. Advised to follow up with PCP if symptoms do not improve. Advised to follow up with UC or PCP immediately for new or worsening symptoms. Educated on red flags symptoms. Advised to go to the ER or call 911 for these symptoms. Patient understands the plan. Patient verbalizes agreement with the plan. No orders of the defined types were placed in this encounter. Sue Williamson NP on 04/12/2024 at 3:50 PM EST Today's documentation was made using voice recognition software. This note may contain grammatical errors secondary to this software. documented in this encounter Plan of Treatment Upcoming Encounters Date Type Department Care Team ([facility] st Contact Info) Description 04/18/2024 11:[address] Scan - [address] [address] 09/29/2024 1:15 PM EDT Office Visit Adult Medicine - [place] [address] [place] [address] Belia Villavicencio MD [address] [place], [place] documented as of this encounter Procedures Procedure Name Priority Date/Time Associated Diagnosis Comments POC INFLUENZA A/B Routine 04/13/2024 9:5 5 AM EST Acute non-recurrent maxillary sinusitis POC RAPID [id number], MOLECULAR Routine 04/13/2024 9:54 AM EST Acute non-recurrent maxillary sinusitis documented in this encounter Results * POC Influenza A/B manually resulted (04/13/2024 9:55 AM EST) Rapid Influenza A AGN POC Negative Negative Rapid Influenza B AGN POC Negative Negative Swab 04/13/2024 9:55 AM EST Sue Williamson FIRE PREVENTION OFFICER POINT OF CARE TEST E NTER/EDIT ORDERABLES * Poc Rapid [id number], MOLECULAR (04/13/2024 9:54 AM EST) Pathologist [facility] COVID-19/SARS- COV-2 Rapid POC Negative Negative Swab Nasopharyngeal structure / Unknown 04/13/2024 9:54 AM EST Sue Williamson FIRE PREVENTION OFFICER POINT OF CARE TEST E NTER/EDIT ORDERABLES documented in this encounter Visit Diagnoses Diagnosis Acute non-recurrent maxillary sinusitis- Primary documented in this encounter Additional Health Concerns Assessment Noted Time PHQ-9 Depression Total Score: 0 03/27/19 25 4:47 PM EST documented as of this encounter Care Teams Carbon Paste Mixer Operator Relationship Specialty Start Date End Date Belia Villavicencio MD [address] [place] [address] PCP - General Internal Medicine 01/17/24 documented as of this encounter
--- OUTSIDE RECORDS SUMMARY | 2024-04-14 14:41 | XMS_ITS | Encounter Summary ---
Author Organization [facility] [place] [place] [address] Care Team Providers Care Wedger And Gluer Name Role Phone Belia Villavicencio MD Primary Care Prov ider Reason for Referral * Imaging (Routine) - Pending Review Specialty Diagnoses / Procedures Referred By Moon hendrickson Referred To Contact Radiology Diagnoses Submandibular gland mass Procedures US Head Neck Soft Tissue Belia Villavicencio MD [address] [place], [place] [address] [place] [address] Referral ID Status Reason Start Date Expiration Date V isits Requested Visits Authorized [id number] Pending Review 03/28/2024 03/28/2025 1 1 Reason for Visit * Reason Comments Hypertension Follow-up Encounter Details Date Type Department Care Team ([facility] st Contact Info) Description 03/28/2024 2:30 PM EST Office Visit Adult Medicine - [place] [address] [place], [place] [phone] Belia Villavicencio MD [address] [place] [phone] Rheumatoid arthritis, involving unspecified site, unspecified whether rheumatoid factor present (CMS/HCC) (Primary Dx); Primary hypertension; Celiac disease; Iron deficiency; Hypothyroidism, unspecified type; Submandibular gland mass; Rash Social History Tobacco Use Types Packs/Day Years [...] ed Within the last 3 months, ho delores many times did you visit the emergency [...] care for your loved ones. For example, rn child or elderly care for an older adult? [...] Sign Reading Time Taken Comments Blood Pressure 138/85 03/28/2024 2:40 PM EST Pulse 68 03/28/2024 2:40 PM EST Temperature 36.3 ??C (97.3 ??F) 03/28/2024 2:40 PM ES T Respiratory Rate - - Oxygen Saturation - - Inhaled Oxygen Concentration - - Weight 78.6 kg (173 lb 3.2 oz) 03/28/2024 2:40 P M EST Height - - Body Mass Index 31.17 02/24/2024 9:29 AM EST documented in this encounter Progress Notes * Belia Villavicencio MD - 03/28/2024 2:30 PM EST CHIEF COMPLAINT: Hypertension and Follow-up IDENTIFIER: Marni Esteves is a 68 y.o. old female. HPI: Very pleasant 68-year-old lady presents for her follow-up. She presents alone. She has a history of celiac disease with manifestation of rash GERD recently had her paraesophagealhernia repaired and she states she feels well . she does not even have to use her PPI. Has had positive DAREN for a while now diagnosed with rheumatoid arthritis intermittent iron deficiency anemia obesity . she has lost some weight chronic back pain hypertension hypothyroidism and anxiety. She is followed by the account adjuster for her inflammatory dermatitis. She was recently treated for H. pylori and will need to go back for further testing Patient says she noticed some swelling right under her left jaw initially thought it might be related to her tooth just saw the dentist and the dentist says her mouth looks okay it does not appear manny a salivary gland or a tooth problem She denies any fever chills it is uncomfortable to press on the mass it sometimes appears red. We reviewed her medications .then I here okay so very good yes looks okay when I look through it yeah there 16 3 yeah we have a couple physicals we discussed about blood work ROS: See HPI PAST MEDICAL HISTORY: Patient Active Problem List Diagnosis Date Noted Celiac disease 03/28/2024 GERD (gastroesophageal reflux disease) 12/27/2023 Incarcerated paraesophageal hernia 12/27/2023 Giant cell arteritis with polymyalgia rheumatica ([facility]/HCC) 12/29/2022 Palpitations 03/30/2022 Positive DAREN (antinuclear antibody) 06/18/2021 Obesity (BMI 30.0-34.9) 06/17/2021 Obstructive sleep apnea 06/17/2021 Lumbago 10/29/2009 Radiculitis, lumbosacral 10/29/2009 Anemia 10/04/2009 Rheumatoid arthritis (CMS/HCC) 10/04/2009 Hypercholesteremia 10/04/2009 Hypertension 10/04/2009 Hypothyroid 10/04/2009 Panic disorder 10/04/2009 SOCIAL HISTORY: Social History Tobacco Use Smoking status: Former Current packs/day: 0.00 Types: Cigarettes Quit date: 1998 Years since quittin.0 Smokeless tobacco: Never Tobacco comments: QUIT SMOKING 1998 Substance Use Topics Alcohol use: Yes Comment: rarely- red wine FAMILY HISTORY: Family Status Relation Name Status Mother Alive Father Sister Sister Alive Brother Daughter Alive Son Alive No partnership data on file Family History Problem Relation Name Age of Onset Hypertension Mother Anxiety disorder Mother Arthritis Mother Stroke Father Other cancer Sister Rheum arthritis Sister Rheum arthritis Sister Other (ca oral) Brother Other (glutin senitive) Daughter No Known Problems Son ACTIVE MEDICATIONS: Outpatient Medications Marked as Taking for the 03/28/24 encounter (Office Visit) with Belia Villavicencio MD Medication Sig Dispense Refill atenoloL (TENORMIN) 25 [...] 1 (one) time each day.30 each 11 ALLERGIES: Hydralazine, Pnltbrj-ucp-vtp reductase inhibitors, Gluten, and Sulfa (sulfonamide antibiotics) PHYSICAL EXAM: Blood pressure 138/85, pulse 68, temperature 36.3 ??C (97.3 ??F), temperature source Temporal, weight 78.6 kg (173 lb 3.2 oz). Body mass index is 31.17 kg/m??. Plan is deferred because the patient isaged 65 or older and a weight gain/reduction plan would complicate other health conditions APPEARANCE: Alert and in no acute distress EYES: PERRLA, conjunctiva and sclera normal EARS: External ears normal. Canals clear. TMs normal. NOSE/SINUS: Nares normal. Septum midline. Mucosa normal. No drainage or sinus tenderness MOUTH/THROAT: no erythema, lesions, or exudates NECK: Quarter size soft lesion tender to palpate right under left jawline HEART: RRR with normal S1 and S2, no murmurs, no gallops, no JVD appreciated LUNG: clear to auscultation bilaterally LYMPH NODES: grossly normal LABS: Ultrasound the neck soft tissue Comprehensive metabolic TSH iron TIBC IMPRESSION: 1. Rheumatoid arthritis, involving unspecified site, unspecified whether rheumatoid factor present (CMS/HCC) 2. Primary hypertension 3. Celiac disease 4. Iron deficiency 5. Hypothyroidism, unspecified type 6. Submandibular gland mass 7. Rash PLAN: New diagnosis of rheumatoid arthritis Her teaching supervisor to be starting her on disease modifying medications Plaquenil every 90 send I have not Orders Placed This Encounter Procedures US Head Neck Soft Tissue Thyroid stimulating hormone with reflex to free t4 and free t3 Iron and TIBC ADDITIONAL ORDERS: US HEAD NECK SOFT TISSUE Belia Villavicencio MD on 03/28/2024 at 3:10 PM EST documented in this encounter Plan of Treatment Upcoming Encounters Date Type Department Care Team (Late st Contact Info) Description 04/18/2024 11:[address] Scan - [address] [phone] 09/29/2024 1:15 PM EDT Office Visit Adult Medicine - [address] [phone] Belia Villavicencio MD [address] [place] [phone] documented as of this encounter Results * US Head Neck Soft Tissue (03/30/2024 [...] Signed Date: 03/30/2024 13:21 ET Workstation ID: [id number] Transcribed By: Self Edit Transcribed Date: 03/30/2024 [...] area. -------- FINAL REPORT -------- Dictated By: Fleecia Roth Dictated Date: 03/30/2024 13:20 ET Assigned Physician: Felecia Roth Reviewed and Electronically Signed By: Felecia Roth Signed Date: 03/30/2024 13:21 ET Workstation ID: [id number] Transcribed By: Self Edit Transcribed Date: 03/30/2024 13:20 ET Belia Villavicencio MD IMG US PRO CEDURES * (ABNORMAL) Iron and TIBC (03/28/2024 3:27 PM EST) Iron 151(H) 40 - 150 mcg/dL LAB CHEMISTRY METHOD 03/28/2024 6:28 PM EST [facility] TIBC 376 250 - 450 mcg/dL LAB CHEMISTRY METHOD 03/28/2024 6:28 PM EST [facility] Iron Saturation 40 15 - 50 % LAB CHEMISTRY METHOD 03/28/2024 6:28 PM EST [facility] Blood Venous blood specimen / Unknown Venipuncture / Unknown 03/28/2024 3:27 PM EST 03/28/2024 3:27 PM EST Belia Villavicencio MD LAB BLOOD ORDERABLES [facility] [address] [place] [address], [place] [phone] * Thyroid stimulating hormone with reflex to free t4 and free t3 (03/28/2024 3:27 PM EST) TSH 1.42 0.40 - 4.00 mcIU/mL LAB CHEMISTRY METHOD 03/28/2024 6:38 PM EST [facility] Blood Venous blood specimen / Unknown Venipuncture / Unknown 03/28/2024 3:27 PM EST 03/28/2024 3:27 PM EST Belia Villavicencio MD LAB BLOOD ORDERABLES [facility] [address] [place] [address], documented in this encounter Visit Diagnoses Diagnosis Rheumatoid arthritis, involving unspecified site, unspecified whether rheumatoid factor present (CMS/[facility])- Primary Primary hypertension Unspecified essential hypertension Celiac disease Iron deficiency Disorders of iron metabolism Hypothyroidism, unspecified type Submandibular gland mass Rash Rash and other nonspecific skin eruption Submandibular gland mass documented in this encounter Discontinued Medications Medication Sig Discontinue Reason Start Date End Da te famotidine (PEPCID) 20 mg tablet TAKE 1 TABLET BY MOUTH EVERY DAY Therapy completed 03/22/2024 03/28/2024 amoxicillin (AMOXIL) 500 mg capsule Take 2 capsules (1,000 mg total) by mouth 2 (two) times a day. Therapy completed 02/24/2024 03/28/2024 documented as of this encounter Additional Health Concerns Assessment Noted Time PHQ-9 Depression Total Score: 0 03/27/19 25 4:47 PM EST documented as of this encounter Care Teams Wedger And Gluer Relationship Specialty Start Date End Date Belia Villavicencio MD [address] [place] [phone] PCP - General Internal Medicine 01/17/24 documented as of this encounter
--- OUTSIDE RECORDS SUMMARY | 2024-04-14 14:41 | XMS_ITS | Encounter Summary ---
Author Organization [facility] [place] [address] Care Team Providers Care Motorcycle Mechanic Apprentice Name Role Phone Belia Villavicencio MD Primary Care Prov ider Reason for Visit * Reason Onset Date Comments Blood work 03/16/2024 Labs Only 03/16/2024 Encounter Details Date Type Department Care Team (Late st Contact Info) Description 03/16/2024 Telephone Adult Medicine - [place] [address] [place] [phone] Belia Villavicencio MD [address] [place] [address] Blood work; Labs Only Social History Tobacco Use Types Packs/Day Years Used Date Smoking Tobacco: Former Cigarettes Smokeless Tobacco: Never Comments:QUIT SMOKING 1998 Alcohol Use Standard Drinks/Week Comments Yes 0 (1 standard drink = 0.6 oz pur e alcohol) SOCIAL Interpersonal Safety Answer Date Record ed Physical [...] as of this encounter Progress Notes * Jaycee Weir MA - 03/16/2024 3:17 PM EST L/M for patient, she has no upcoming appointments. Asked her to contact the office if she needs labs for another office. * Rashid Hauser - 03/16/2024 1:13 PM EST PT would like to know if a blood work order needs to be placed for her upcoming appt documented in this encounter Plan of Treatment Upcoming Encounters Date Type Department Care Team (Late st Contact Info) Description 04/18/2024 11:[address] Scan - [address] [phone] 09/29/2024 1:15 PM EDT Office Visit Adult Medicine - [place] [address] [place] [address] Belia Villavicencio MD [address] [place] [phone] documented as of this encounter Visit Diagnoses Not on filedocumented in this encounter Care Teams Motorcycle Mechanic Apprentice Relationship Specialty Start Date End Date Belia Villavicencio MD [address] [place] [phone] PCP - General Internal Medicine 01/17/24 documented as of this encounter
--- OUTSIDE RECORDS SUMMARY | 2024-04-14 14:41 | XMS_ITS | Encounter Summary ---
Author Organization [facility] [place] [address] Care Team Providers Care Disease Intervention Specialist Name Role Phone Belia Villavicencio MD Primary Care Prov ider Reason for Referral * Imaging (Routine) - Pending Review Specialty Diagnoses / Procedures Referred By Moon hendrickson Referred To Contact Radiology Diagnoses Submandibular gland mass Procedures US Head Neck Soft Tissue Belia Villavicencio MD [address] [place], [place] 230 [facility] [address] [place] [address] Referral ID Status Reason Start Date Expiration Date V isits Requested Visits Authorized [id number] Pending Review 03/28/2024 03/28/2025 1 1 Reason for Visit * Imaging (Routine) - Pending Review Specialty Diagnoses / Procedures Referred By Moon hendrickson Referred To Contact Radiology Diagnoses Submandibular gland mass Procedures US Head Neck Soft Tissue Belia Villavicencio MD [address] [place], [place] [facility] [address] [facility] [address] [place] [address] Referral ID Status Reason Start Date Expiration Date V isits Requested Visits Authorized [id number] Pending Review 03/28/2024 03/28/2025 1 1 Encounter Details Date Type Department Care Team (Latest Contact Info) Description 03/30/2024 12:29 PM EST - 03/30/2024 11:59 PM EST Hospital Encounter Radiology Department - [address] [phone] Submandibular gland mass Discharge Disposition: Home or Self Care Social History Tobacco Use Types Packs/Day Years [...] care for your loved ones. For example, childbirth and infant care teacher or elderly care for an older adult? [...] on file documented as of this encounter Medications at Time of Discharge Medication Sig Dispensed Refills Start Date End Date atenoloL (TENORMIN) 25 mg tablet Take 0.5 tablets (12.5 mg total) by mouth 1 (one) time each day. 07/22/2023 cetirizine (ZyrTEC) 10 mg tablet Take 1 tablet (10 mg total) by mouth 1 (one) time each day if needed for allergies. 11/11/2023 clonazePAM (KlonoPIN) 0.5 mg tabletIndications:Panic disorder (episodic paroxysmal anxiety) TAKE 1 TABLET BY MOUTH 3 TIMES DAILY FOR 28 DAYS. 84 tablet 2 02/10/2024 ferrous sulfate 325 mg (65 mg elemental iron) tablet TAKE 1 TABLET BY MOUTH EVERY DAY 90 tablet 1 03/22/2024 levothyroxine (SYNTHROID, LEVOTHROID) 100 mcg tablet Take 1 tablet (100 mcg total) by mouth 1 (one) time each day before breakfast. 90 tablet 03/16/2024 spironolactone (Aldactone) 50 mg tablet Take 1 tablet (50 mg total) by mouth 1 (one) time each day. 30 each 11 02/14/2024 02/13/2025 documented as of this encounter Discharge Disposition Disposition Code Departure Means Destination Home or Self Care documented in this encounter Plan of Treatment Upcoming Encounters Date Type Department Care Team (Late st Contact Info) Description 04/18/2024 11:[address] Scan - [address] [phone] 09/29/2024 1:15 PM EDT Office Visit Adult Medicine - [address] [phone] Belia Villavicencio MD [address] [place] [phone] documented as of this encounter Procedures Procedure Name Priority Date/Time Associated Diagnosis Comments US HEAD NECK SOFT TISSUE Routine 03/30/2024 12:54 PM EST Submandibular gland mass documented in this encounter Results * US Head Neck [...] Signed Date: 03/30/2024 13:21 ET Workstation ID: [id number] Transcribed By: Self Edit Transcribed Date: 03/30/2024 [...] Signed Date: 03/30/2024 13:21 ET Workstation ID: [id number] Transcribed By: Self Edit Transcribed Date: 03/30/2024 13:20 ET Belia Villavicencio MD IMG US PRO CEDURES documented in this encounter Visit Diagnoses Diagnosis Submandibular gland mass documented in this encounter Additional Health Concerns Assessment Noted Time PHQ-9 Depression Total Score: 0 03/27/19 25 4:47 PM EST documented as of this encounter Care Teams Disease Intervention Specialist Relationship Specialty Start Date End Date Belia Villavicencio MD [address] [place] [phone] PCP - General Internal Medicine 01/17/24 documented as of this encounter
[2024-04-14 14:44] LABS: MANUAL DIFF FLAG NO
[2024-04-14 14:48] LABS: Basophils Absolute Auto 0.1 X10*3/uL (0.0-0.2); Basophils Percent Auto 0.7 % (0-2); Eosinophils Absolute Auto 0.3 X10*3/uL (0.0-0.4); Eosinophils Percent Auto 3.2 % (0-4); Hematocrit 35.1 % (37.0-47.0); Hemoglobin 11.8 g/dl (12.0-16.0); Imm Gran Abs Auto 0.07 X10*3/uL (0.00-0.03); Imm Gran Pct Auto 0.7 % (0.0-0.4); Lymphocytes Absolute Auto 2.9 X10*3/uL (1.2-4.9); Lymphocytes Percent Auto 27.7 % (20-40); Mean Corpuscular HGB Conc 33.6 g/dl (31.0-35.0); Mean Corpuscular Hemoglobin 26.8 pg (27.0-33.0); Mean Corpuscular Volume 79.6 fL (80.0-98.0); Monocytes Absolute Auto 0.7 X10*3/uL (0.1-1.2); Monocytes Percent Auto 6.9 % (2-11); Neutrophils Absolute Auto 6.3 x10*3/uL (2.0-8.3); Neutrophils Percent Auto 60.8 % (45-73); Platelet Count 448 X10*3/uL (160-400); Red Blood Count 4.41 X10*6/uL (4.20-5.50); Red Cell Distribution Width 15.3 % (11.0-16.0); White Blood Count 10.4 X10*3/uL (4.8-10.8)
[2024-04-14 15:13] LABS: Alanine Aminotransferase 16 U/L (0-31); Albumin Level 4.5 g/dL (3.5-5.0); Alkaline Phosphatase 85 U/L (39-117); Anion Gap 17 (12-20); Aspartate Amino Transferase 20 U/L (5-31); Bilirubin Total 0.3 mg/dL (0.0-1.0); Blood Urea Nitrogen 13 mg/dL (9-16); C Reactive Protein 3.97 mg/dL (< or = 0.50); Carbon Dioxide 20 mmol/L (22-29); Chloride 92 mmol/L (96-108); Estimated Glomerular Filt Rate > 60; Glucose Random 136 mg/dL (60-115); Potassium 4.2 mmol/L (3.3-5.1); Sodium 125 mmol/L (135-145); Total Protein 8.2 g/dL (6.5-8.0)
[2024-04-14 16:28] LABS: Erythrocyte Sedimentation Rate 30 MM/HR (0-20)
== END 2024-04-14 14:26 | disposition home or self-care (01) ==
LOC: HO.LAB 14:25
PROVIDERS: PCP Internal Medicine; Visit Provider Student in an Organized Health Care Education/Training Program
DX: M35.3 Polymyalgia rheumatica (principal); K50.90 Crohn's disease, unspecified, without complications
CPT/HCPCS: 36415; 80053; 81479; 82397; 83520; 85025; 85652; 86140; 88346; 88350

== ENCOUNTER 2024-04-19 12:24 | Outpatient (AMB) | payer OTHER, SELFPAY ==
--- NOTE | 2024-04-19 12:33 | MHC.OFFVIS ---
Vital Signs 04/19/24 12:39 Height 5 ft 2.5 in Weight 173 lb 15.115 oz BMI 31.3 BP 140/80 H Blood Pressure Location Rt brachial Position Sitting Pulse 60 Pulse Source Pulse Oximeter Pulse Oximetry (%) 99 Oxygen Delivery Method Room Air Intake Visit Reasons: RA/severe headaches Intake Note: Patient presents for RA/severe headaches. Allergies hydralazine Allergy (Severe, Verified 04/19/24 12:38) Shortness of Breath Sulfa (Sulfonamide Antibiotics) Allergy (Intermediate, Verified 04/19/24 12:38) Rash sulfamethoxazole [From Bactrim] Allergy (Intermediate, Verified 04/19/24 12:38) Rash trimethoprim [From Bactrim] Allergy (Intermediate, Verified 04/19/24 12:38) Rash rosuvastatin Adverse Reaction (Severe, Verified 04/19/24 12:38) Joint Pain HPI Comments Details: Patient is a 68 y.o. female with celiac disease, Crohn's disease, hypertension, hypothyroidism and a history of PMR presents today for evaluation of headache Interval History: Patient last seen 02/15/[address] Bernardo. At that time her PMR symptoms were stable and there was no evidence of active synovitis on examination. There was concern that she may have an aspect of the clinical RA/palindromic rheumatism but the decision was made not to pursue treatment at that time. Today she is here for an urgent visit for recent development of headache: States that she had a throbbing headache 2 weeks ago associated with a sore throat. Since then has been having daily headaches. Non responsive to heating pads and Tylenol. Tried advil with minimal effect. Associated with jaw claudication. No associated visual changes Rheumatologic History: PMR onset around 10/2022 elevated ESR and CRP. 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 Giant cell arteritis Paresthesias Vertigo HTN (hypertension) Arthritis Anemia Hypothyroidism Vertigo Anxiety Back pain Surgical History H/O esophageal hernia repair Family History Brother Liver disease Cancer Sister Stroke Diabetes Sister Cancer Rheumatoid arthritis Sister Vitiligo Rheumatoid arthritis Daughter Vitiligo Social History Household Members: Spouse Housing: House Are you a primary healthcare representative to a significant other at home: No Do you presently have visiting nurse or other home services: No 75 years or older and lives alone: No Alcohol intake: current Alcohol intake frequency: a few times a week Alcohol type: wine Patient Tobacco Use Status: Former Tobacco user Years Smoked: Quit 25 years ago e-Cigarette/Vaping Use: Never Used service: No Current occupational status: retired Review of Systems Const Details: Review of Systems Constitutional: Denies fever, chills, weight loss ENT: Denies vision changes, eye pain or eye redness, dental caries, dry mouth GI: Denies nausea, vomiting, diarrhea, abdominal pain, change in BM Pulm: Denies SOB, , hemoptysis, wheezing Cards: Denies chest pain, palpitations Skin: Denies Raynaud's, rash, nail changes, photosensitivity, IRRIGATOR VALVE PIPE: Denies weakness, paresthesias, recurrent falls MSK: as per HPI All other systems reviewed and are unremarkable except noted above Physical Exam Vital Signs: Last Vital Signs Pulse 60 04/19/24 12:39 BP 140/80 H 04/19/24 12:39 Pulse Ox 99 04/19/24 12:39 Oxygen Delivery Method Room Air 04/19/24 12:39 BMI result Body Mass Index 31.3 Vital signs reviewed Physical Examination CONSTITUITIONAL Patient alert and cooperative. Well appearing and in no apparent painful distress HEENT Conjunctiva and sclera clear. ?Pupils equal round and reactive to light. ?No lymphadenopathy. ? Decreased temporal artery pulse on the right. No tenderness to palpation bilaterally. CHEST/RESPIRATORY SYSTEM Normal respiratory effort and able to speak in complete sentences. ?Clear to auscultation bilaterally. ?No crackles, rales, rhonchi, wheezes heard. CARDIAC SYSTEM Regular rate and rhythm. ?S1 and S2 heard no murmurs. ?Radial pulses intact bilaterally MSK Hands: ?Good hair designer strength bilaterally. No deformities noted. ?No synovitis noted to the MCPs, PIPs or DIPs. ?No tenderness to palpation of these joints. Wrists: ?Full range of motion at the wrists without pain. ?No tenderness to palpation or synovitis noted to the wrists. Elbows: Full range of motion without pain. No tenderness, weakness, swelling, increased warmth or erythema. Shoulders: Full range of motion without pain. No tenderness, weakness, swelling, increased warmth or erythema. Hips: Full range of motion without pain. Hip bursa: No tenderness to palpation Knees: ?Full range of motion. ?No tenderness, swelling, increased warmth or erythema.?No effusion or crepitations Ankles: Full range of motion. ?No tenderness, swelling, increased warmth or erythema.? Feet: ?Negative squeeze test. ?No tenderness to palpation or swelling of the MTPs. Tender points:?No tenderness to palpation of the bilateral trapezius, supraspinatus, greater trochanters, anterior costochondral junctions, bilateral gluteal areas, bilateral suboccipital muscle insertions SKIN Skin intact without rashes. Results Reviewed Results Reviewed: Laboratory Tests 12/02/23 02/07/24 04/14/24 12:24 11:56 14:43 WBC 10.8 10.4 RBC 5.16 4.41 Hgb 13.5 11.8 L Hct 41.0 35.1 L Plt Count 431 H 448 H ESR 20 30 H Sodium 132 L 125 L Potassium 4.0 4.2 Chloride 102 92 L Carbon Dioxide 23 20 L BUN 8 L 13 Creatinine 0.75 0.63 Calcium 9.5 10.0 Total Bilirubin 0.2 0.3 AST 27 20 ALT 25 16 C-Reactive Protein 1.18 H 3.97 H Total Protein 7.6 8.2 H Hepatitis A IgM Ab Nonreactive Hep Bs Antigen Negative Hep Bs Antibody NONREACTIVE Hep B Core Total Ab Nonreactive Hepatitis C Ab (EIA) Nonreactive TB Test (T-Spot) Com Negative Assessment & Plan Assessment & Plan (1) Polymyalgia rheumatica: Comment: onset around 10/2022 elevated ESR and CRP. ++DAREN Prednisone tapered off 12/2023 Code(s): M35.3 - Polymyalgia rheumatica Category: Medical (2) Giant cell arteritis: Code(s): M31.6 - Other giant cell arteritis Category: Medical Plan: #GCA Patient with new onset occipital headache associated with jaw claudication and worsening inflammatory markers on a background of a history of PMR. This is consistent with GCA hand meets classification criteria. Start patient on Prednisone. Refer to general surgery for biopsy within the next 2 weeks. Discussed plan moving forward which included DMARDs for a relapse of large vessel vasculitis. Once we have the biopsy we will start prior Auth for Actemra. 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 Category: Medical Plan: #Long-term Use of Steroids Discussed with patient the risks and benefits of steroid for managing the rheumatic condition Benefits include: - Reduced pain, improved mobility, increased participation in activities, and decreased progression of disease Risks include: - GI upset, potential ultrasound worsening or formation (especially in patients > 65 years old), elevated blood pressure/worsening hypertension, elevated blood sugar/worsening diabetes control, worsening of bone density, elevated lipids/worsening triglycerides, cataract formation, weight gain Recommended using proton pump inhibitors (PPIs) for the duration of steroid use to reduce the risk of gastric ulcers and vitamin-D daily to reduce the risk of osteoporosis Labs checked: ?A1c, T spot, hepatitis-B and C serologies Pneumocystis jiroveci prophylaxis: ?Patient with risk factors including steroids greater than 50 mg for more than 30 days, age greater than 60 years, and lung involvement from underlying rheumatic disease requires prophylaxis and will be given so Plan I spent 45 minutes reviewing the record and labs, taking a history, examining the patient, discussing the treatment plan and documenting in the medical record Orders: Referrals General Surgery Referral M31.6 - Other giant cell arteritis Medications: Changed From prednisone 10 mg PO DAILY M31.6 - Other giant cell arteritis, M35.3 - Polymyalgia rheumatica To prednisone Take 3 tablets in the morning and 3 tablets in the evening for 1 week then 3 tablets in the morning and 2 tablets in the evening for 1 week then 2 tablets in the morning and 2 tablets in the evening for 1 week then 2 tablets in the morning and 1.5 tablets in the evening for 1 week 10 mg PO DIRECTED 130 tabs 0RF M31.6 - Other giant cell arteritis, M35.3 - Polymyalgia rheumatica Coding Level of Care Code Est Pt Level 5 (45060) Complex EM visit Add On G2211 Diagnoses Polymyalgia rheumatica M35.3 Giant cell arteritis M31.6 nursing home (current) use of systemic steroids Z79.52
[2024-04-19 12:39] VITALS: BP 140/80; PULSE 60; O2SAT 99; BMI 31.3
--- OUTSIDE RECORDS SUMMARY | 2024-04-19 13:54 | XMS_ITS | Encounter Summary ---
Author Organization [facility] [place] [address] Care Team Providers Care Plant Protection Superintendent Name Role Phone Belia Villavicencio MD Primary Care Prov ider Reason for Visit * Reason Onset Date Comments Medicare Annual Wellness Visit Subsequent 2024 AWV DUE 2024 Encounter Details Date Type Department Care Team (Late st Contact Info) Description 03/27/2024 Telephone Adult Medicine - [place] [address] [place] [id number] Mary Devries MA Medicare Annual Wellness Visit [...] your loved ones. For example, early childhood services coordinator or elderly care for an older adult? [...] ed Physical Abuse 01/18/2024 Verbal Abuse 01/18/2024 Comments No Sex and Gender Information Value Date Recorded Sex Assigned at Female 01/18/2024 5:51 AM EST Legal Sex Female 1:13 PM EST Gender Identity Female 01/18/2024 5:51 AM EST Sexual Orientation Straight 01/13/2024 8: 18 AM EST Occupation Industry Job Start Date Job End Date RETIRED Not on file Not on file Not on file documented as of this encounter Progress Notes * Mary Devries MA - 03/27/2024 10:26 AM EST Spoke with patient. Annual Wellness Visit appt booked 03/27/2024 w/[facility] Nurse over the phone. Put the following message in the appt, (call [phone]/TAC.) Changed Length from 15 to 30. Changed Arrival Time from 1:30 pm to 1:15 pm. PT is on the December/2023 report. documented in this encounter Plan of Treatment Upcoming Encounters Date Type Department Care Team (Late st Contact Info) Description 09/29/2024 1:15 PM EDT Office Visit Adult Medicine - [place] [address] [place] [phone] Belia Villavicencio MD [address] [place] [address] documented as of this encounter Visit Diagnoses Not on filedocumented in this encounter Additional Health Concerns Assessment Noted Time PHQ-9 Depression Total Score: 0 03/27/19 4:47 PM EST documented as of this encounter Care Teams Plant Protection Superintendent Relationship Specialty Start Date End Date Belia Villavicencio MD [address] [place] [address] PCP - General Internal Medicine 01/17/24 documented as of this encounter
--- OUTSIDE RECORDS SUMMARY | 2024-04-19 13:54 | XMS_ITS | Clinical Summary ---
Author Organization [facility] Address [address] [place] [address] Phone Care Team Providers Care Dip Lube Operator Name Role Phone Belia Villavicencio MD Primary Care Prov ider Allergies Active Allergy Reactions Criticality Noted Date Comments Gluten Itching,GI intolerance 01/03/2024 Hydralazine Cardiac Issue High 02/16/2024 Severe chest pain Dxhjxie-Xmx-Kub Reductase Inhibitors Muscular Issues High 01/08/2023 Sulfa (Sulfonamide Antibiotics) Rash 01/03/2024 Medications cetirizine (ZyrTEC) 10 mg tablet Take 1 tablet (10 mg total) by mouth 1 (one) time each day if needed for allergies. 4 Active atenoloL (TENORMIN) 25 mg tablet Take 0.5 tablets (12.5 mg total) by mouth 1 (one) time each day. 4 Active clonazePAM (KlonoPIN) 0.5 mg tabletIndicati ons:Panic disorder (episodic paroxysmal anxiety) TAKE 1 TABLET BY MOUTH 3 TIMES DAILY FOR 28 DAYS. 84 tablet 2 4 Active spironolactone (Aldactone) 50 mg tablet Take 1 tablet (50 mg total) by mouth 1 (one) time each day. 30 each 11 4 025 Active levothyroxine (SYNTHROID, LEVOTHROID) 100 mcg tablet Take 1 tablet (100 mcg total) by mouth 1 (one) time each day before breakfast. 90 tablet 5 Active ferrous sulfate 325 mg (65 mg elemental iron) tablet TAKE 1 TABLET BY MOUTH EVERY DAY 90 tablet 1 5 Active Additional Information Patient not taking.Reported on 03/27/2024 cefadroxil 500 mg capsule Take 1 capsule (500 mg total) by mouth 2 (two) times a day for 10 days. 20 capsule 5 025 Active amoxicillin (AMOXIL) 500 mg capsule Take 2 capsules (1,000 mg total) by mouth 2 (two) times a day. 56 capsule 4 025 Discontinu ed(Therapy completed) famotidine (PEPCID) 20 mg tablet TAKE 1 TABLET BY MOUTH EVERY DAY 90 tablet 1 5 025 Discontinu ed(Therapy completed) amoxicillin-cl avulanate (AUGMENTIN) 500-125 mg per tablet Take 1 tablet by mouth 3 (three) times a day for 7 days. 21 each 5 025 Active Problems Problem Noted Date Diagnosed Date [...] engaged with Dr. Reeves of rheumatology at [place] Palpitations 03/30/2022 Positive DAREN (antinuclear antibody) 06/18/2021 [...] Encounters Date Type Department Care Team Description 04/18/2024 11:18 AM EST - 04/18/2024 11:59 PM EST Hospital Encounter CT Scan - [address] [phone] Chronic nonintractable headache, unspecified headache type Discharge Disposition: Home or Self Care 04/17/2024 Telephone Adult Medicine - [place] [address] [place] [address] Belia Villavicencio MD Faxed Order Mammogram and Ultrasound 04/12/2024 3:30 PM EST Office Visit Walk-In Clinic - [address] [phone] Clay, Sue, DIRECTOR OF RESEARCH Acute non-recurrent maxillary sinusitis (Primary Dx) 03/30/2024 12:29 PM EST - 03/30/2024 11:59 PM EST Hospital Encounter Radiology Department - [address] [phone] Submandibular gland mass Discharge Disposition: Home or Self Care 03/28/2024 2:30 PM EST Office Visit Adult [address] [phone] Belia Villavicencio MD Rheumatoid arthritis, involving unspecified site, unspecified whether rheumatoid factor present ([facility]) (Primary Dx); Primary hypertension; Celiac disease; Iron deficiency; Hypothyroidism, unspecified type; Submandibular gland mass; Rash 03/27/2024 1:30 PM EST Telemedicine Adult [address] [phone] Medicare annual wellness visit, subsequent (Primary Dx) 03/27/2024 Telephone Adult [address] [phone] Mary Devries [place] Medicare Annual Wellness Visit Subsequent (AWV DUE 2024) 03/16/[address] [phone] Belia Villavicencio MD Blood work; Labs Only 02/24/2024 9:20 AM EST Office Visit Gastroenterology - [place] [facility] [address] [facility] [address] [place] [phone] Sylvain Laws PA Celiac sprue (Primary Dx); History of repair of hiatal hernia; H/O chest pain; Gastroesophageal reflux disease with esophagitis without hemorrhage; Fatty liver; Bacterial infection due to H. pylori 02/17/2024 Telephone Pulmonology [facility] [address] [facility] [address] [place] [address] Mojgan Vanegas [place] 02/16/2024 10:30 AM EST Office Visit Thoracic Surgery - [place] [address] [facility] [address] [place] [address] Srinath Ibarra PA Incarcerated paraesophageal hernia (Primary Dx) 02/16/2024 7:23 AM EST - 02/16/2024 11:59 PM EST Hospital Encounter [facility] Xray [address] [place] [phone] Diaphragmatic hernia with obstruction, without gangrene Discharge Disposition: Home or Self Care 02/14/2024 3:30 PM EST Office Visit Adult Medicine [facility] [address] [place] [phone] Belia Villavicencio MD Allergic drug rash due to non-narcotic analgesic (Primary Dx); Angioedema, subsequent encounter; Gastroesophageal reflux disease without esophagitis; Palpitations; Diarrhea, unspecified type 02/08/2024 11:38 PM EST - 02/09/2024 7:08 AM EST Emergency [facility] Emergency [address] [place] [phone] Jeremiah Kaur MD Other chest pain (Primary Dx); Chest wall pain Discharge Disposition: Home or Self Care 01/31/2024 1:00 PM EST Office Visit Thoracic Surgery - [place] [address] [facility] [address] [place] [phone] Srinath Ibarra PA Incarcerated paraesophageal hernia (Primary Dx) 01/31/2024 Telephone Adult Medicine [facility] [address] [place] [address] Belia Villavicencio MD Medication Problem 01/26/2024 Telephone [facility] - [facility] [address] [facility] [address] [place] [phone] Srinath Mercado MD hernia surgery 01/18/2024 7:30 AM EST - 01/18/2024 11:00 AM EST Surgery [facility] Main OR [address] [place] [phone] Emily Ho MD da iserra paraesophageal hernia repair w/mesh & fundoplication [86490 (CPT??)] 01/18/2024 7:20 AM EST Anesthesia Event [facility] Main OR [address] [place] [phone] Roque Sheriff MD Walsh, Michael, DO 01/18/2024 5:52 AM EST - 01/19/2024 5:00 PM EST Hospital Encounter [facility] Intermediate Care Unit B [address] [place] [address] Emily Ho MD Hiatal hernia; Gastroesophageal reflux disease without esophagitis; GERD (gastroesophageal reflux disease); Dyspepsia Discharge Disposition: Home or Self Care from [...] your loved ones. For example, child development instructor or elderly care for an older adult? [...] PM EDT Office Visit Adult Medicine - [address] [phone] Belia Villavicencio MD [address] [place] [phone] Health Maintenance Due Date Last Done Comments Breast Cancer Screening 1955 Hepatitis A Vaccines (1 of 2 - Risk 2-dose series) 07/22/1974 Pneumococcal Vaccine: 50+ Years (1 of 2 - PCV) 07/22/1974 Zoster Vaccines (1 of 2) 07/22/2005 Hepatitis B Vaccines (1 of 3 - Risk 3-dose series) 2015 RSV Immunization Patients 60+ Years Old (1 - Risk 60-74 years 1-dose series) 2015 DTaP,Tdap,and Td Vaccines (3 - Td or Tdap) 02/06/2023 02/06/2013, 10/04/2009 COVID-19 Vaccine ( season) 2023 04/20/2022, 02/11/2021, 06/20/2020, Additional history [...] patient's age to complete this topic Meningococcal B Vacine Aged Out No lo nger eligible based on patient's age to complete this topic RSV Immunization Patients Under 20 months Aged Out No longer eligible based on patient's age to complete this topic Varicella Vaccines Aged Out No longer eligible based on patient's age to complete this topic Medical Devices Implanted Type [employer] Device Identifier Shelf Expiration Date Model / Serial / Lot Sealant Fibrin Vistaseal 10ml - [id number] - [id number] Implanted:Qty: 1 on 01/18/2024 by Emily Ho MD at [facility] Hemostasis N/A: Abdomen [employer] [id number] 09/13/2025 [id number] / [id number] / [id number] Tissue Ovitex 1s Perm 6x10cm - Sna - [id number] Implanted:Qty: 1 on 01/18/2024 by Emily Ho MD at [facility] Surgical Mesh Sling Implants N/A: Abdomen [employer] [id number] 07/05/2025 [id number] / NA / [id number] 1 Procedures Procedure Name Priority Date/Time Associated Diagnosis Comments CT HEAD WO CONTRAST Routine 04/18/2024 11:40 AM EST Chronic nonintractable headache, unspecified headache type POC INFLUENZA A/B Routine 04/13/2024 9:5 5 AM EST Acute non-recurrent maxillary sinusitis POC RAPID [id number], MOLECULAR Routine 04/13/2024 9:54 AM EST Acute [...] ENDOTRACHEAL(NO CHARGE) Routine 01/18/2024 7:38 AM EST [place] LAPAROSCOPY SURG REPAIR PARAESOPHAGEAL HERNIA INCL FUNDOPLASTY W MESH 01/18/2024 7:20 AM EST Hiatal hernia Gastroesophageal reflux disease without esophagitis Case Notes 23Hr bed LIPID PANEL Routine 09/20/2023 COLONOSCOPY Routine 10/07/2022 DXA BONE DENSITY STUDY 1+ SITS AXIAL SKEL Routine 03/05/2022 1:21 PM EST Encounter for screening for osteoporosis HEPATITIS C SCREENING Routine 09/18/2020 from Last 3 Months or Most Recently Relevant to Health Maintenance Results * CT Head wo Contrast (04/18/2024 11:40 AM EST) Anatomical Region Laterality Modality Head and Neck Computed Tomogra phy 04/18/2024 11:5 8 AM EST Narrative 04/18/2024 12:[address] without intravenous contrast. History 53 weeks. Classic migraine. Comparison with previous study from 01/07/2023. There is no evidence of midline shift, extra or intra-axial blood fluid collections. There is no visible masses or mass effect in the brain and cerebellum. There is mild cortical prominence probably reflecting mild cortical atrophy. Ventricular system is symmetric and normal in size. Fourth ventricle and basal cisterns are midline and patent. There are are small, probably physiologic calcifications in the basal ganglia. There are small areas of periventricular hypodensities, most likely due to chronic small vessel ischemia. CONCLUSIONS: No acute CT abnormalities in the brain and cerebellum. Stable chronic findings as detailed in the report. Visualized paranasal sinuses and mastoid processes are aerated. CONCLUSIONS: There is mild frontal hyperostosis. -------- FINAL REPORT -------- Dictated By: Brandee Moise Dictated Date: 04/18/2024 11:58 ET Assigned Physician: Brandee Moise Reviewed and Electronically Signed By: Brandee Moise Signed Date: 04/18/2024 12:21 ET Workstation ID: [id number] Transcribed By: Self Edit Transcribed Date: 04/18/2024 11:58 ET Procedure Note Brandee Moise MD - 04/18/[address] without intravenous contrast. History 53 weeks. Classic migraine. Comparison with previous study from 01/07/2023. There is no evidence of midline shift, extra or intra-axial blood fluidcollections. There is no visible masses or mass effect in the brain andcerebellum. There is mild cortical prominence probably reflecting mildcortical atrophy. Ventricular system is symmetric and normal in size.Fourth ventricle and basal cisterns are midline and patent. There are aresmall, probably physiologic calcifications in the basal ganglia. There aresmall areas of periventricular hypodensities, most likely due to chronicsmall vessel ischemia. CONCLUSIONS: No acute CT abnormalities in the brain and cerebellum. Stablechronic findings as detailed in the report. Visualized paranasal sinuses and mastoid processes are aerated. CONCLUSIONS: There is mild frontal hyperostosis. -------- FINAL REPORT -------- Dictated By: Brandee Moise Dictated Date: 04/18/2024 11:58 ET Assigned Physician: Brandee Moise Reviewed and Electronically Signed By: Brandee Moise Signed Date: 04/18/2024 12:21 ET Workstation ID: [id number] Transcribed By: Self Edit Transcribed Date: 04/18/2024 11:58 ET us Belia Villavicencio MD IMG CT PROCEDURES Final Result * POC Influenza A/B manually resulted (04/13/2024 9:55 AM EST) Rapid Influenza A AGN POC Negative Negative Rapid Influenza B AGN POC Negative Negative Swab 04/13/2024 9:55 AM EST us Sue Williamson NP POINT OF CARE TEST ENTER/EDIT ORDERABLES Final Result * Poc Rapid [id number]-JVG, MOLECULAR (04/13/2024 9:54 AM EST) COVID-19/SARS- COV-2 Rapid POC Negative Negative Swab Nasopharyngeal structure / Unknown 04/13/2024 9:54 AM EST Sue Williamson NP POINT OF CARE TEST ENTER/EDIT ORDERABLES Final Result * US Head Neck Soft Tissue (03/30/2024 [...] Signed Date: 03/30/2024 13:21 ET Workstation ID: [id number] Transcribed By: Self Edit Transcribed Date: 03/30/2024 [...] Signed Date: 03/30/2024 13:21 ET Workstation ID: [id number] Transcribed By: Self Edit Transcribed Date: 03/30/2024 13:20 ET Belia Villavicencio MD IMG US PROCEDURES Final Result * Thyroid stimulating hormone with reflex to free t4 and free t3 (03/28/2024 3:27 PM EST) TSH 1.42 0.40 - 4.00 mcIU/mL LAB CHEMISTRY METHOD 03/28/2024 6:38 PM EST [facility] Blood Venous blood specimen / Unknown Venipuncture / Unknown 03/28/2024 3:27 PM EST 03/28/2024 3:27 PM EST Belia Villavicencio MD LAB BLOOD ORDERABL ES Final Result [facility] [address] [place] [address], * (ABNORMAL) Iron and TIBC (03/28/2024 3:27 PM EST) Iron 151(H) 40 - 150 mcg/dL LAB CHEMISTRY METHOD 03/28/2024 6:28 PM EST [facility] TIBC 376 250 - 450 mcg/dL LAB CHEMISTRY METHOD 03/28/2024 6:28 PM EST [facility] Iron Saturation 40 15 - 50 % LAB CHEMISTRY METHOD 03/28/2024 6:28 PM EST [facility] Blood Venous blood specimen / Unknown Venipuncture / Unknown 03/28/2024 3:27 PM EST 03/28/2024 3:27 PM EST Belia Villavicencio MD LAB BLOOD ORDERABL ES Final Result Performing Organization Address City/[facility]/ZIP Co de Phone Number [facility] [address] [place] [address], [place] [phone] * Helicobacter pylori breath test (03/28/2024 3:27 PM EST) H Pylori Breath Test Negative Negative LAB CHEMISTRY METHOD 03/29/2024 11:27 AM EST [facility] Breath Oral cavity structure / Unknown Non-blood Collection / Unknown 03/28/2024 3:27 PM EST 03/28/2024 3:27 PM EST Sylvain DAILY LAB BODY FLUIDS AND STOOLS LUIS FERNANDO DANIEL Final Result Performing Organization Address [facility] Co de Phone Number [facility] [address] [place] [address], [place] [phone] * XR Esophagram (02/16/2024 8:20 AM EST) [...] Signed Date: 02/16/2024 11:15 ET Workstation ID: [id number] Transcribed By: Self Edit Transcribed Date: 02/16/2024 10:59 ET Resident/PA/DIRECTOR OF RESEARCH: Nona Kapadia Narrative 02/16/2024 11:15 AM EST FINDINGS: Double contrast esophagram performed. COMPARISON: Esophagram January 19, 2024 HISTORY: Patient is a 68-year-old female one month status post hiatal hernia repair. Environmental Services Supervisor radiographs: 1 view chest radiograph demonstrates cardiac [...] female one month status post hiatalhernia repair. Environmental Services Supervisor radiographs: 1 view chest radiograph demonstrates cardiac [...] Signed Date: 02/16/2024 11:15 ET Workstation ID: [id number] Transcribed By: Self Edit Transcribed Date: 02/16/2024 10:59 ET Resident/PA/DIRECTOR OF RESEARCH: Nona Kapadia Emily Ho MD IMG FLUOROSCOPY PROCEDURES Final Result * ECG 12 lead (02/09/2024 2:06 AM EST) Pathologist [facility] Ventricular Rate ECG 85 BPM GEMUSE Atrial Rate 85 BPM GEMUSE P-R Interval 236 ms GEMUSE QRS Duration 84 ms GEMUSE Q-T Interval 394 ms GEMUSE QTc 468 ms GEMUSE P Wave [place] 23 degrees GEMUSE R [place] 29 degrees GEMUSE T [place] 9 degrees GEMUSE ECG Interpretation Sinus rhythm with 1st degree A-V block Otherwise normal ECG When compared with ECG of 11-JAN-2024 10:10, [place] interval has increased Vent. rate has increased BY ??28 BPM Confirmed by BONITA BACH ([id number]) on 02/09/2024 9:40:31 AM GEMUSE 02/09/2024 2:06 AM EST 02/09/2024 9:40 AM EST Jeremiah Kaur MD ECG ORDERABLES Final Result GEMUSE * Troponin I high sensitivity (02/09/2024 2:00 AM EST) Only the most recent of2 resultswithin the time period is included. [facility] High Sensitivity Troponin I 15 <=54 ng/L LAB CHEMISTRY METHOD 02/09/2024 2:35 AM EST [facility] Blood Venous blood specimen / Unknown Venipuncture / Unknown 02/09/2024 2:00 AM EST 02/09/2024 2:13 AM EST Narrative [facility] - 02/09/2024 2:35 AM EST High levels of biotin in samples may falsely decrease hsTroponin values. ??Use caution when interpreting hsTroponin results in patients taking biotin who exhibit renal impairment (eGFR <60) or in patients taking more than 20 mg/day of biotin. us Jeremiah Kaur MD LAB BLOOD ORDERABLES Final Resu lt Performing Organization Address [facility] Co de Phone Number [facility] [address] [place] [address], [place] [phone] * (ABNORMAL) D-dimer, quantitative (02/09/2024 2:00 AM EST) D-Dimer, Quant (D-DU) 673(H) <=230 ng/mL DDU LAB COAGULATION METHOD 02/09/2024 2:31 AM EST [facility] Blood Venous blood specimen / Unknown Venipuncture / Unknown 02/09/2024 2:00 AM EST 02/09/2024 2:13 AM EST Narrative [facility] - 02/09/2024 2:31 AM EST D-Dimer <230 ng/mL (D-Dimer units) is the threshold for exclusion of DVT/PE. D-Dimer may be elevated in: Critically ill, severely infected, trauma patients, DIC, acute CVA, acute AR, unstable angina, AF, old age, , and smoking. D-Dimer may be decreased with: Initiation of heparin therapy and oral anticoagulants. us Jeremiah Kaur MD LAB BLOOD ORDERABLES Final Resu lt Performing Organization Address [facility] Co de Phone Number [facility] [address] [place] [address], [place] [phone] * CT Angio Chest/Abdomen/Pelvis wo and/or w [...] by: Wilder Camilo DO on 02/09/2024 02:11:47 [facility] Aubrey Kaur MD [facility] CT PROCEDURES Edited Result - Final * (ABNORMAL) CBC auto differential (02/08/2024 11:50 PM EST) WBC 11.0(H) 4.8 - 10.8 K/mcL LAB HEMETOLOGY METHOD 02/09/2024 12:26 AM [facility] RBC 4.80 3.80 - 4.80 M/mcL LAB HEMETOLOGY METHOD 02/09/2024 12:26 AM [facility] Hemoglobin 12.7 11.5 - 16.0 g/dL LAB HEMETOLOGY METHOD 02/09/2024 12:26 AM [facility] Hematocrit 38.7 35.0 - 47.0 % LAB HEMETOLOGY METHOD 02/09/2024 12:26 AM [facility] MCV 80.0 79.0 - 98.0 FL LAB HEMETOLOGY METHOD 02/09/2024 12:26 AM [facility] MCH 26.2(L) 27.0 - 32.0 pcg LAB HEMETOLOGY METHOD 02/09/2024 12:26 AM [facility] MCHC 32.8 32.0 - 37.0 g/dL LAB HEMETOLOGY METHOD 02/09/2024 12:26 AM [facility] RDW 12.7 11.0 - 15.0 % LAB HEMETOLOGY METHOD 02/09/2024 12:26 AM [facility] Platelets 390 130 - 400 K/mcL LAB HEMETOLOGY METHOD 02/09/2024 12:26 AM [facility] MPV 10.4 7.0 - 11.0 FL LAB HEMETOLOGY METHOD 02/09/2024 12:26 AM [facility] NRBC 0.0 <1.0 % LAB HEMETOLOGY METHOD 02/09/2024 12:26 AM [facility] NRBC Absolute 0.00 <0.10 K/mcL LAB HEMETOLOGY METHOD 02/09/2024 12:26 AM [facility] Neutrophils Relative 55.2 % LAB HEMETOLOGY METHOD 02/09/2024 12:26 AM [facility] Lymphocytes Relative 29.3 % LAB HEMETOLOGY METHOD 02/09/2024 12:26 AM [facility] Monocytes Relative 6.7 % LAB HEMETOLOGY METHOD 02/09/2024 12:26 AM [facility] Eosinophils Relative 7.7 % LAB HEMETOLOGY METHOD 02/09/2024 12:26 AM [facility] Basophils Relative 0.7 % LAB HEMETOLOGY METHOD 02/09/2024 12:26 AM [facility] Immature Granulocytes Relative 0.4 % LAB HEMETOLOGY METHOD 02/09/2024 12:26 AM EST [facility] Neutrophils Absolute 6.06 1.50 - 7.00 K/mcL LAB HEMETOLOGY METHOD 02/09/2024 12:26 AM [facility] Lymphocytes Absolute 3.22 1.00 - 5.00 K/mcL LAB HEMETOLOGY METHOD 02/09/2024 12:26 AM EST [facility] Monocytes Absolute 0.74 0.20 - 1.00 K/mcL LAB HEMETOLOGY METHOD 02/09/2024 12:26 AM [facility] Eosinophils Absolute 0.85(H) 0.00 - 0.50 K/mcL LAB HEMETOLOGY METHOD 02/09/2024 12:26 AM [facility] Basophils Absolute 0.08 0.00 - 0.20 K/mcL LAB HEMETOLOGY METHOD 02/09/2024 12:26 AM [facility] Immature Granulocytes Absolute 0.04(H) 0.00 - 0.03 K/mcL LAB HEMETOLOGY METHOD 02/09/2024 12:26 AM [facility] Blood Venous blood specimen / Unknown Venipuncture / Unknown 02/08/2024 11:50 PM EST 02/09/2024 12:15 AM EST us Jeremiah Kaur MD LAB BLOOD ORDERABLES Final Resu lt [facility] [address] [place] [address], * B-type natriuretic peptide (02/08/2024 11:50 PM EST) BNP 63 <=100 pcg/mL LAB CHEMISTRY METHOD 02/09/2024 12:54 AM EST [facility] Blood Venous blood specimen / Unknown Venipuncture / Unknown 02/08/2024 11:50 PM EST 02/09/2024 12:15 AM EST us Jeremiah Kaur MD LAB BLOOD ORDERABLES Final Resu lt Performing Organization Address [facility]/ZIP Co de Phone Number [facility] [address] [place] [address], [place] [phone] * (ABNORMAL) Magnesium (02/08/2024 11:50 PM EST) Only the most recent of2 resultswithin the time period is included. Magnesium 1.7(L) 1.9 - 2.6 mg/dL LAB CHEMISTRY METHOD 02/09/2024 12:47 AM EST [facility] Blood Venous blood specimen / Unknown Venipuncture / Unknown 02/08/2024 11:50 PM EST 02/09/2024 12:15 AM EST us Jeremiah Kuar MD LAB BLOOD ORDERABLES Final Resu lt Performing Organization Address [facility] de Phone Number [facility] [address] [place] [address], [place] [phone] * Lipase (02/08/2024 11:50 PM EST) Pathologist [facility] Lipase 26 13 - 75 unit/L LAB CHEMISTRY METHOD 02/09/2024 12:47 AM EST [facility] Blood Venous blood specimen / Unknown Venipuncture / Unknown 02/08/2024 11:50 PM EST 02/09/2024 12:15 AM EST us Jeremiah Kaur MD LAB BLOOD ORDERABLES Final Resu lt Performing Organization Address City/[facility]/ZIP Co de Phone Number [facility] [address] [place] [address], [place] [phone] * (ABNORMAL) Comprehensive metabolic panel (02/08/2024 11:50 PM EST) Sodium 136 133 - 145 mmol/L LAB CHEMISTRY METHOD 02/09/2024 12:47 AM [facility] Potassium 3.2(L) 3.5 - 5.5 mmol/L LAB CHEMISTRY METHOD 02/09/2024 12:47 AM [facility] Chloride 104 96 - 110 mmol/L LAB CHEMISTRY METHOD 02/09/2024 12:47 AM [facility] CO2 21 21 - 32 mmol/L LAB CHEMISTRY METHOD 02/09/2024 12:47 AM [facility] Anion Gap 11 3 - 11 LAB CHEMISTRY METHOD 02/09/2024 12:47 AM [facility] Glucose 115(H) 70 - 100 mg/dL LAB CHEMISTRY METHOD 02/09/2024 12:47 AM [facility] BUN 7 5 - 25 mg/dL LAB CHEMISTRY METHOD 02/09/2024 12:47 AM [facility] Creatinine 0.66 0.50 - 1.10 mg/dL LAB CHEMISTRY METHOD 02/09/2024 12:47 AM [facility] eGFR 96 >=60 mL/min/1. 73m2 LAB CHEMISTRY METHOD 02/09/2024 12:47 AM [facility] Comment:Calculation based on the??Chronic Kidney Disease Epidemiology Collaboration (CKD-EPI) equation refit??without adjustment for race. BUN/Creatinine Ratio 10.6 LAB CHEMISTRY METHOD 02/09/2024 12:47 AM [facility] Calcium 9.3 8.5 - 10.5 mg/dL LAB CHEMISTRY METHOD 02/09/2024 12:47 AM [facility] AST (SGOT) 16 10 - 42 unit/L LAB CHEMISTRY METHOD 02/09/2024 12:47 AM [facility] ALT (SGPT) 23 10 - 60 unit/L LAB CHEMISTRY METHOD 02/09/2024 12:47 AM [facility] Alkaline Phosphatase 74 42 - 121 unit/L LAB CHEMISTRY METHOD 02/09/2024 12:47 AM EST [facility] Total Protein 7.2 6.0 - 8.0 g/dL LAB CHEMISTRY METHOD 02/09/2024 12:47 AM EST [facility] Albumin 3.7 3.2 - 5.0 g/dL LAB CHEMISTRY METHOD 02/09/2024 12:47 AM EST [facility] Total Bilirubin 0.2 0.0 - 1.4 mg/dL LAB CHEMISTRY METHOD 02/09/2024 12:47 AM EST [facility] Blood Venous blood specimen / Unknown Venipuncture / Unknown 02/08/2024 11:50 PM EST 02/09/2024 12:15 AM EST us Jeremiah Kaur MD LAB BLOOD ORDERABLES Final Resu lt [facility] [address] [place] [address], * ECG-Outside (02/08/2024) us Provider Onbase MD ECG ORDERABLES Final Result * ECG-Annotated (02/08/2024) us Provider Onbase MD ECG ORDERABLES Final Result * ECG-External (01/26/2024 11:26 AM EST) us Historical Provider MD ECG ORDERABLES Final Res ult * CT Chest wo Contrast (01/19/2024 12:31 [...] Signed Date: 01/19/2024 12:52 ET Workstation ID: [id number] Transcribed By: Self Edit Transcribed Date: 01/19/2024 [...] Signed Date: 01/19/2024 12:52 ET Workstation ID: [id number] Transcribed By: Self Edit Transcribed Date: 01/19/2024 12:45 ET Nona DAILY IMG CT PROCEDURES Final Result * XR Abdomen 1 View (01/19/2024 12:07 [...] Signed Date: 01/19/2024 13:02 ET Workstation ID: [id number] Transcribed By: Self Edit Transcribed Date: 01/19/2024 [...] Signed Date: 01/19/2024 13:02 ET Workstation ID: [id number] Transcribed By: Self Edit Transcribed Date: 01/19/2024 12:59 ET Laura DAILY IMG XR PROCEDURES Final Resul t * (ABNORMAL) Complete blood count (01/19/2024 10:18 AM EST) Only the most recent of2 resultswithin the time period is included. WBC 12.9(H) 4.8 - 10.8 K/mcL LAB HEMETOLOGY METHOD 01/19/2024 10:55 AM EST [facility] RBC 4.50 3.80 - 4.80 M/[facility] LAB HEMETOLOGY METHOD 01/19/2024 10:55 AM [facility] Hemoglobin 12.1 11.5 - 16.0 g/dL LAB HEMETOLOGY METHOD 01/19/2024 10:55 AM EST [facility] Hematocrit 38.4 35.0 - 47.0 % LAB HEMETOLOGY METHOD 01/19/2024 10:55 AM [facility] MCV 84.6 79.0 - 98.0 FL LAB HEMETOLOGY METHOD 01/19/2024 10:55 AM [facility] MCH 26.7(L) 27.0 - 32.0 pcg LAB HEMETOLOGY METHOD 01/19/2024 10:55 AM [facility] MCHC 31.5(L) 32.0 - 37.0 g/dL LAB HEMETOLOGY METHOD 01/19/2024 10:55 AM [facility] RDW 13.0 11.0 - 15.0 % LAB HEMETOLOGY METHOD 01/19/2024 10:55 AM [facility] Platelets 419(H) 130 - 400 K/mcL LAB HEMETOLOGY METHOD 01/19/2024 10:55 AM EST [facility] MPV 10.1 7.0 - 11.0 FL LAB HEMETOLOGY METHOD 01/19/2024 10:55 AM [facility] NRBC 0.0 <1.0 % LAB HEMETOLOGY METHOD 01/19/2024 10:55 AM [facility] NRBC Absolute 0.00 <0.10 K/mcL LAB HEMETOLOGY METHOD 01/19/2024 10:55 AM [facility] Blood Venous blood specimen / Unknown Venipuncture / Unknown 01/19/2024 10:18 AM EST 01/19/2024 10:31 AM EST us Laura DAILY LAB BLOOD ORDERABLES Final Re sult [facility] [address] [place] [address], * (ABNORMAL) Basic metabolic panel (01/19/2024 10:18 AM EST) Only the most recent of2 resultswithin the time period is included. Sodium 140 133 - 145 mmol/L LAB CHEMISTRY METHOD 01/19/2024 12:46 PM [facility] Potassium 4.7 3.5 - 5.5 mmol/L LAB CHEMISTRY METHOD 01/19/2024 12:46 PM [facility] Chloride 106 96 - 110 mmol/L LAB CHEMISTRY METHOD 01/19/2024 12:46 PM [facility] CO2 28 21 - 32 mmol/L LAB CHEMISTRY METHOD 01/19/2024 12:46 PM [facility] Anion Gap 6 3 - 11 LAB CHEMISTRY METHOD 01/19/2024 12:46 PM [facility] Glucose 104(H) 70 - 100 mg/dL LAB CHEMISTRY METHOD 01/19/2024 12:46 PM [facility] BUN 9 5 - 25 mg/dL LAB CHEMISTRY METHOD 01/19/2024 12:46 PM [facility] Creatinine 0.65 0.50 - 1.10 mg/dL LAB CHEMISTRY METHOD 01/19/2024 12:46 PM [facility] eGFR 96 >=60 mL/min/1. 73m2 LAB CHEMISTRY METHOD 01/19/2024 12:46 PM [facility] Comment:Calculation based on the??Chronic Kidney Disease Epidemiology Collaboration (CKD-EPI) equation refit??without adjustment for race. BUN/Creatinine Ratio 13.8 LAB CHEMISTRY METHOD 01/19/2024 12:46 PM [facility] Calcium 9.7 8.5 - 10.5 mg/dL LAB CHEMISTRY METHOD 01/19/2024 12:46 PM [facility] Blood Venous blood specimen / Unknown Venipuncture / Unknown 01/19/2024 10:18 AM EST 01/19/2024 10:31 AM EST Laura DAILY LAB BLOOD ORDERABLES Final Re sult [facility] [address] [place] [address], [place] [phone] * (ABNORMAL) Phosphorus (01/19/2024 5:58 AM EST) Phosphorus 4.8(H) 2.5 - 4.5 mg/dL LAB CHEMISTRY METHOD 01/19/2024 7:57 AM EST [facility] Blood Venous blood specimen / Unknown Venipuncture / Unknown 01/19/2024 5:58 AM EST 01/19/2024 7:05 AM EST Laura DAILY LAB BLOOD ORDERABLES Final Re sult Performing Organization Address [facility]/ZIP Co de Phone Number [facility] [address] [place] [address], [place] [phone] * (ABNORMAL) POCT Glucose, blood (01/18/2024 8:19 PM EST) [facility] Glucose POCT 141(H) 70 - 100 mg/dL 01/18/2024 8:19 PM EST [facility] Blood Capillary blood specimen / Unknown 01/18/2024 8:19 PM EST 01/18/2024 8:20 PM EST Emily Ho MD LAB POINT OF CARE TE ST DOCKED DEVICE UNSOLICITED RESULTS Final Result [facility] [address] [place] [address], [place] [phone] * Tissue exam (01/18/2024 9:24 AM EST) Final Diagnosis A. Hernia sac, paraesophageal: -HERNIA SAC B. Skin, abdominal-excisio n: -MELANOCYTIC NEVUS, INTRADERMAL TYPE 01/19/2024 12:08 PM EST [facility] Gross Description A. Abdominal Wall, paraesophageal hernia sac: Labeled paraesophageal hernia sac . Received in formalin is a 6.1 x 4.3 x 2.1 cm aggregate of yellow lobular focally cauterized adipose tissue which is partially surfaced by a pink-purple smooth glistening membranous tissue. The cut surfaces are comprised of glistening yellow adipose tissue. No masses or lesions are appreciated. Slotter Operator sections are submitted one cassette, two [...] blue and sectioned in a cruciate manner. Slotter Operator sections, to include the entirety of the nodule, are submitted in two cassettes, with the unoriented cruciate tips in cassette one and the nodule in cassette two, two pieces each. KATLYN 01/19/2024 12:08 PM EST [facility] Disclaimer Unless otherwise specified, all tissue is 10% NB formalin fixed and paraffin embedded. 01/19/2024 12:08 PM EST [facility] Tissue Abdominal wall / Unknown 01/18/2024 9:24 AM EST 01/18/2024 12:15 PM EST Skin (tissue) specimen (specimen) Abdominal wall / Unknown 01/18/2024 10:33 AM EST 01/18/2024 12:15 PM EST us Emily Ho MD LAB PATHOLOGY ORDERABLES Final R esult [facility] [address] [place] [address], * TH AN ENDOTRACHEAL(NO CHARGE) (01/18/2024 7:38 AM EST) Narrative Enrique Tracey CRNA - 01/18/2024 7:38 AM EST Enrique Tracey CRNA ? 01/18/2024 12:45 PM General Information and Staff Patient location during procedure: OR Resident/IT OPERATIONS SPECIALIST: PHANI Fernandez Performed: resident/IT OPERATIONS SPECIALIST/CAA Performed by: PHANI Fernandez Authorized by: Roque [...] vent by mask Roque Sheriff MD ANESTHESIA ORDERABLES Edited R esult - Final * (ABNORMAL) Lipid panel (09/20/2023) LDL/HDL Ratio 5(A) 0 - 4 Triglycerides 245(A) 0 - 150 mg/dL Cholesterol 275(A) 0 - 200 mg/dL HDL 60 >=40 mg/dL LDL Cholesterol 166(A) 0 - 100 mg/dL Blood Venous blood specimen / Unknown Historical Provider LAB BLOOD ORDERABLES Molly l Result * Colonoscopy (10/07/2022) Pathologist [facility] Colonoscopy no interpretation , abstracted Anatomical Region Laterality Modality Other Historical Provider HEALTH MAINTENANCE Final Result * DXA BONE DENSITY STUDY 1+ SITS [...] classified as having normal bone density. The [facility] Department of Internal Medicine recommends using National [...] classified as having normal bone density. The [facility] Department of Internal Medicine recommendsusing National Osteoporosis [...] of fracture risk by FRAX. Caro DAILY [facility] DXA PROCEDURES Final R esult * Hepatitis C Screening (09/18/2020) [facility] Hepatitis C Screening abstracted Historical Provider HEALTH MAINTENANCE Final Result from Last 3 Months or Most Recently Relevant to Health Maintenance Insurance [employer] MEDICARE [facility] MEDICAID - [place] Advance Directives Documents on File Type Date Recorded Patient Slotter Operator Expl anation Health Care Decision (hx) [...] Name Relationship Healthcare Agent Relationship Communication Ruddy Estevse Spouse Health Care Agent Care Teams Dip Lube Operator Relationship Specialty Start Date End Date Belia Villavicencio MD [address] [place] [address] PCP - General Internal Medicine 01/17/24
--- OUTSIDE RECORDS SUMMARY | 2024-04-19 13:54 | XMS_ITS | Clinical Summary ---
Author Organization [facility] Address [address] [place] [address] Care Team Providers Care Input Output Clerk Name Role Phone Urvashi Paredes NP Primary Care Provider [phone] Allergies Active Allergy Reactions Criticality Noted Date [...] age to complete this topic Care Teams Input Output Clerk Relationship Specialty Start Date End Date Urvashi Paredes, VARNISHING UNIT OPERATOR [address] [place] [address] PCP - General Nurse Practitioner 08/10/20
--- OUTSIDE RECORDS SUMMARY | 2024-04-19 13:54 | XMS_ITS | Encounter Summary ---
Author Organization [place] [address] Care Team Providers Care Crown Presser Name Role Phone Belia Villavicencio MD Primary Care Prov ider Reason for Visit * Reason Comments Headache [place], face pressure, S T at night. Onset Wednesday Encounter Details Date Type Department Care Team (Late st Contact Info) Description 04/12/2024 3:30 PM EST Office Visit Walk[facility] - [place] [address] [place] [address] Sue Williamson NP [address], [place] [id number] Acute non-recurrent maxillary sinusitis (Primary Dx) Social [...] in this encounter Ordered Prescriptions Prescription Sig Dispense Quantity Refills Last Filled Start Date End Date cefadroxil 500 mg capsule Take 1 capsule (500 mg total) by mouth 2 (two) times a day for 10 days. 20 capsule 04/12/2024 documented in this encounter Progress Notes * [...] Radiculitis, lumbosacral 10/29/2009 Anemia 10/04/2009 Rheumatoid arthritis ([facility]/HCC) 10/04/2009 Hypercholesteremia 10/04/2009 Hypertension 10/04/2009 Hypothyroid 10/04/2009 [...] Reactions Hydralazine Cardiac Issue Severe chest pain Dffdbmu-Lmp-Ave Reductase Inhibitors Muscular Issues Gluten Itching and [...] Upcoming Encounters Date Type Department Care Team ([facility] Contact Info) Description 09/29/2024 1:15 PM EDT Office Visit Adult Medicine [address] [place] [address] Belia Villavicencio MD [address] [place], [place] documented as of this encounter Procedures Procedure Name Priority Date/Time Associated Diagnosis Comments POC INFLUENZA A/B Routine 04/13/2024 9:5 5 AM EST Acute non-recurrent maxillary sinusitis POC RAPID [id number], MOLECULAR Routine 04/13/2024 9:54 AM EST Acute non-recurrent maxillary sinusitis documented in this encounter Results * POC Influenza A/B manually resulted (04/13/2024 9:55 AM EST) Pathologist [facility] Rapid Influenza A AGN POC Negative Negative Rapid Influenza B AGN POC Negative Negative Swab 04/13/2024 9:55 AM EST Sue Williamson CLINICAL UNIT EDUCATOR POINT OF CARE TEST ENTER/EDIT ORDERABLES Final Result * Poc Rapid [id number], MOLECULAR (04/13/2024 9:54 AM EST) Pathologist [facility] COVID-19/SARS- COV-2 Rapid POC Negative Negative Swab Nasopharyngeal structure / Unknown 04/13/2024 9:54 AM EST Sue Williamson CLINICAL UNIT EDUCATOR POINT OF CARE TEST ENTER/EDIT ORDERABLES Final Result documented in this encounter Visit Diagnoses Diagnosis Acute non-recurrent maxillary sinusitis- Primary documented in this encounter Additional Health Concerns Assessment Noted Time PHQ-9 Depression Total Score: 0 03/27/19 25 4:47 PM EST documented as of this encounter Care Teams Crown Presser Relationship Specialty Start Date End Date Belia Villavicencio MD [address], [place] PCP - General Internal Medicine 01/17/24 documented as of this encounter
--- OUTSIDE RECORDS SUMMARY | 2024-04-19 13:55 | XMS_ITS | Encounter Summary ---
Author Organization [facility] [place] [address] Care Team Providers Care Band Machine Operator Name Role Phone Belia Villavicencio MD Primary Care Prov ider Reason for Referral * Imaging (Routine) - Pending Review Specialty Diagnoses / Procedures Referred By Moon hendrickson Referred To Contact Radiology Diagnoses Submandibular gland mass Procedures US Head Neck Soft Tissue Belia Villavicencio MD [address] [place], [place] Phone: tel: fax: [facility] [address] [facility] [address] [place] [address] Phone: tel: Referral ID Status Reason Start Date Expiration Date V isits Requested Visits Authorized [id number] Pending Review 03/28/2024 03/28/2025 1 1 Reason for Visit * Imaging (Routine) - Pending Review Specialty Diagnoses / Procedures Referred By Moon hendrickson Referred To Contact Radiology Diagnoses Submandibular gland mass Procedures US Head Neck Soft Tissue Belia Villavicencio MD [address] [place], [place] Phone: tel: fax: [facility] [address] [facility] [address] [place] [address] Phone: tel: Referral ID Status Reason Start Date Expiration Date V isits Requested Visits Authorized [id number] Pending Review 03/28/2024 03/28/2025 1 1 Encounter Details Date Type Department Care Team (Latest Contact Info) Description 03/30/2024 12:29 PM EST - 03/30/2024 11:59 PM EST Hospital Encounter Radiology Department - [address] [address] Submandibular gland mass Discharge Disposition: Home or [...] your loved ones. For example, early childhood director or elderly care for an older [...] this encounter Medications at Time of Discharge atenoloL (TENORMIN) 25 mg tablet Take 0.5 tablets (12.5 mg total) by mouth 1 (one) time each day. 07/22/2023 cetirizine (ZyrTEC) 10 mg tablet Take 1 tablet (10 mg total) by mouth 1 (one) time each day if needed for allergies. 11/11/2023 clonazePAM (KlonoPIN) 0.5 mg tabletIndications :Panic disorder (episodic paroxysmal anxiety) TAKE 1 TABLET [...] 1:15 PM EDT Office Visit Adult Medicine [facility] [address] [place] [address] Belia Villavicencio MD [address] [place] [address] documented as of this encounter Procedures Procedure [...] Signed Date: 03/30/2024 13:21 ET Workstation ID: [id number] Transcribed By: Self Edit Transcribed Date: 03/30/2024 [...] Signed Date: 03/30/2024 13:21 ET Workstation ID: [id number] Transcribed By: Self Edit Transcribed Date: 03/30/2024 13:20 ET us Belia Villavicencio MD IMG US PROCEDURES Final Result documented in this encounter Visit Diagnoses Diagnosis Submandibular gland mass documented in this encounter Additional Health Concerns Assessment Noted Time PHQ-9 Depression Total Score: 0 03/27/19 25 4:47 PM EST documented as of this encounter Care Teams Band Machine Operator Relationship Specialty Start Date End Date Belia Villavicencio MD [address] [place] [address] PCP - General Internal Medicine 01/17/24 documented as of this encounter
--- OUTSIDE RECORDS SUMMARY | 2024-04-19 13:55 | XMS_ITS | Encounter Summary ---
Author Organization [employer] [place] [address] Care Team Providers Care Rn Managed Care Name Role Phone Belia Villavicencio MD Primary Care Prov ider Reason for Visit * Reason Comments Medicare Annual Wellness Visit Subsequen t Encounter Details Date Type Department Care Team (Late st Contact Info) Description 03/27/2024 1:30 PM EST Telemedicine Adult Medicine - [place] [address] [place] [phone] Medicare annual wellness visit, subsequent (Primary Dx) [...] care for your loved ones. For example, children's tutor or elderly care for an older adult? [...] Nurse Practitioner (Cardiology) ABIMBOLA Grimaldo as Physician Used Car Make Ready Mechanic (Thoracic Surgery) Risk Assessments There is no [...] 0 Opioid Risk Tool No data recorded [facility] Mental Status ([facility]) No data recorded Comprehensive Medical and Social [...] Reactions Hydralazine Cardiac Issue Severe chest pain Qgugmeq-Nng-Onq Reductase Inhibitors Muscular Issues Gluten Itching and [...] Influenza Vaccine (1) 11/07/2023 COVID-19 Vaccine ( season) 2023 Hypertension/CHF/CAD Annual BMP Blood Test [...] to communicate, the services of a qualified dockworker will be provided during the visit. Patients Location: home Additional individuals participating in remote visit: self Total Time: 30 minutes Provider's Location: providers office documented in this encounter Plan of Treatment Upcoming Encounters Date Type Department Care Team (Late st Contact Info) Description 09/29/2024 1:15 PM EDT Office Visit Adult Medicine - [address] [phone] Belia Villavicencio MD [address] [place] [address] documented as of this encounter Visit Diagnoses Diagnosis Medicare annual wellness visit, subsequent- Primary documented in this encounter Additional Health Concerns Assessment Noted Time PHQ-9 Depression Total Score: 0 03/27/19 2:03 PM EST documented as of this encounter Care Teams Rn Managed Care Relationship Specialty Start Date End Date Belia Villavicencio MD [address] [place] [address] PCP - General Internal Medicine 01/17/24 documented as of this encounter
--- OUTSIDE RECORDS SUMMARY | 2024-04-19 13:55 | XMS_ITS | Encounter Summary ---
Author Organization [facility] [place] [address] Care Team Providers Care Clinical Psychologist Private Practice Name Role Phone Belia Villavicencio MD Primary Care Prov ider Reason for Visit * Reason Onset Date Comments Faxed Order Mammogram and Ultrasound 04/17/2024 Encounter Details Date Type Department Care Team ([facility] Contact Info) Description 04/17/2024 Telephone Adult Medicine - [place] [address] [place] [phone] Belia Villavicencio MD [address] [place] [address] Faxed Order Mammogram and Ultrasound Social History Tobacco Use Types Packs/Day Years [...] for your loved ones. For example, child attendant or elderly care for an older adult? [...] as of this encounter Progress Notes * Marc Smith - 04/17/2024 12:35 PM EST Caller stated pt has an appt scheduled for tomorrow and would appreciate if this order can be signed suresh. Thx. * Marni Martinez - 04/17/2024 10:29 AM EST PLEASE CLOSE MESSAGE WHEN ORDER HAS BEEN FAXED Faxed order Left breast dx mammogram and ultrasound received from [facility], requesting signature from provider. Please sign and fax back to [phone]. Order in orange folder documented in this encounter Plan of Treatment Upcoming Encounters Date Type Department Care Team (Late st Contact Info) Description 09/29/2024 1:15 PM EDT Office Visit Adult Medicine - [place] [address] [place] [address] Belia Villavicencio MD [address] [place] [address] documented as of this encounter Visit Diagnoses Not on filedocumented in this encounter Additional Health Concerns Assessment Noted Time PHQ-9 Depression Total Score: 0 03/27/19 25 4:47 PM EST documented as of this encounter Care Teams Clinical Psychologist Private Practice Relationship Specialty Start Date End Date Belia Villavicencio MD [address] [place] [address] PCP - General Internal Medicine 01/17/24 documented as of this encounter
--- OUTSIDE RECORDS SUMMARY | 2024-04-19 13:55 | XMS_ITS | Patient Health Record ---
Author Organization [facility] Address [address] [place] [address] Care Team Providers Care Brake Machine Operator Name Role Phone SHANIQUA FERNANDEZ MD Primary Care Provider Unavail able Heena Brasher Unavailable [phone] Reason For Referral No Information Medications Medication [...]
--- OUTSIDE RECORDS SUMMARY | 2024-04-19 13:55 | XMS_ITS | Encounter Summary ---
Author Organization [facility] [place] [address] Care Team Providers Care Personalized Living Manager Nurse Name Role Phone Belia Villavicencio MD Primary Care Prov ider Reason for Referral * Imaging (Routine) - Authorized Specialty Diagnoses / Procedures Referred By Moon hendrickson Referred To Contact Radiology Diagnoses Chronic nonintractable headache, unspecified headache type Procedures CT Head wo Contrast Belia Villavicencio MD [address] [place] [address] Phone: tel: fax: CT Scan [address] Phone: tel: fax: Referral ID Status Reason Start Date Expiration Date V isits Requested Visits Authorized [id number] Authorized 04/13/2024 04/13/2025 1 1 Reason for Visit * Imaging (Routine) - Authorized Specialty Diagnoses / Procedures Referred By Mono hendrickson Referred To Contact Radiology Diagnoses Chronic nonintractable headache, unspecified headache type Procedures CT Head wo Contrast Belia Villavicencio MD [address] [place] [address] Phone: tel: fax: CT Scan - [place] [address] [place], [place] Phone: tel: fax: Referral ID Status Reason Start Date Expiration Date V isits Requested Visits Authorized [id number] Authorized 04/13/2024 04/13/2025 1 1 Encounter Details Date Type Department Care Team (Latest Contact Info) Description 04/18/2024 11:18 AM EST - 04/18/2024 11:59 PM EST Hospital Encounter CT Scan - [place] [address] [place], [place] [phone] Chronic nonintractable headache, unspecified headache type Discharge Disposition: Home or Self Care Social [...] care for your loved ones. For example, director child or elderly care for an older [...] mouth 1 (one) time each day. 07/22/2023 cefadroxil 500 mg capsule Take 1 capsule (500 mg total) by mouth 2 (two) times a day for 10 days. 20 capsule 04/12/2024 04/22/2024 cetirizine (ZyrTEC) 10 mg tablet Take 1 [...] 1:15 PM EDT Office Visit Adult Medicine [address] [address] Belia Villavicencio MD [address] [place] [address] documented as of this encounter Procedures Procedure Name Priority Date/Time Associated Diagnosis Comments CT HEAD WO CONTRAST Routine 04/18/2024 11:40 AM EST Chronic nonintractable headache, unspecified headache type documented in this encounter Results * CT Head wo Contrast (04/18/2024 [...] Signed Date: 04/18/2024 12:21 ET Workstation ID: [id number] Transcribed By: Self Edit Transcribed Date: 04/18/2024 [...] Signed Date: 04/18/2024 12:21 ET Workstation ID: [id number] Transcribed By: Self Edit Transcribed Date: 04/18/2024 11:58 ET Belia Villavicencio MD IMG CT PROCEDURES Final Result documented in this encounter Visit Diagnoses Diagnosis Chronic nonintractable headache, unspecified headache type documented in this encounter Additional Health Concerns Assessment Noted Time PHQ-9 Depression Total Score: 0 03/27/19 25 4:47 PM EST documented as of this encounter Care Teams Personalized Living Manager Nurse Relationship Specialty Start Date End Date Belia Villavicencio MD [address] [place] [address] PCP - General Internal Medicine 01/17/24 documented as of this encounter
--- OUTSIDE RECORDS SUMMARY | 2024-04-19 13:55 | XMS_ITS | Encounter Summary ---
Author Organization [facility] [place] [address] Care Team Providers Care Photographer Model Name Role Phone Belia Villavicencio MD Primary Care Prov ider Reason for Referral * Imaging (Routine) - Pending Review Specialty Diagnoses / Procedures Referred By Moon hendrickson Referred To Contact Radiology Diagnoses Submandibular gland mass Procedures US Head Neck Soft Tissue Belia Villavicencio MD [address] [place] [address] Phone: tel: fax: [facility] [address] [facility] [address] [place] [address] Phone: tel: Referral ID Status Reason Start Date Expiration Date V isits Requested Visits Authorized [id number] Pending Review 03/28/2024 03/28/2025 1 1 Reason for Visit * Reason Comments Hypertension Follow-up Encounter Details Date Type Department Care Team ([facility] st Contact Info) Description 03/28/2024 2:30 PM EST Office Visit Adult Medicine [facility] [address] [place] [phone] Belai Villavicencio MD [address] [place] [address] Rheumatoid arthritis, involving unspecified site, unspecified whether [...] for your loved ones. For example, child life specialist or elderly care for an older [...] and anxiety. She is followed by the electric locomotive crane operator for her inflammatory dermatitis. She was recently [...] time each day.30 each 11 ALLERGIES: Hydralazine, Ikedcsp-vsn-bbh reductase inhibitors, Gluten, and Sulfa (sulfonamide antibiotics) [...] PLAN: New diagnosis of rheumatoid arthritis Her coding spec to be starting her on disease modifying [...] PM EDT Office Visit Adult Medicine - [address] [phone] Belia Villavicencio MD [address] [place] [address] documented as of this encounter Results * [...] Signed Date: 03/30/2024 13:21 ET Workstation ID: [id number] Transcribed By: Self Edit Transcribed Date: 03/30/2024 [...] Signed Date: 03/30/2024 13:21 ET Workstation ID: [id number] Transcribed By: Self Edit Transcribed Date: 03/30/2024 13:20 ET Belia Villavicencio MD IMG US PROCEDURES Final Result * (ABNORMAL) Iron and TIBC (03/28/2024 3:27 PM EST) Iron 151(H) 40 - 150 mcg/dL LAB CHEMISTRY METHOD 03/28/2024 6:28 PM EST [facility] TIBC 376 250 - 450 mcg/dL LAB CHEMISTRY METHOD 03/28/2024 6:28 PM EST [facility] Iron Saturation 40 15 - 50 % LAB CHEMISTRY METHOD 03/28/2024 6:28 PM EST [facility] Blood Venous blood specimen / Unknown Venipuncture / Unknown 03/28/2024 3:27 PM EST 03/28/2024 3:27 PM EST Belia Villavicencio MD LAB BLOOD ORDERABL ES Final Result [facility] [address] [place] [address], [place] [phone] * Thyroid stimulating hormone with reflex to free t4 and free t3 (03/28/2024 3:27 PM EST) TSH 1.42 0.40 - 4.00 mcIU/mL LAB CHEMISTRY METHOD 03/28/2024 6:38 PM EST [facility] Blood Venous blood specimen / Unknown Venipuncture / Unknown 03/28/2024 3:27 PM EST 03/28/2024 3:27 PM EST us Belia Villavicencio MD LAB BLOOD ORDERABL ES Final Result [facility] [address] [place] [address], documented in this encounter Visit Diagnoses Diagnosis Rheumatoid arthritis, involving unspecified site, unspecified whether rheumatoid factor present (CMS/[facility])- Primary Primary hypertension Unspecified essential hypertension Celiac [...] documented as of this encounter Care Teams Photographer Model Relationship Specialty Start Date End Date Belia Villavicencio MD [address] [place] [address] PCP - General Internal Medicine 01/17/24 documented as of this encounter
== END 2024-04-19 13:16 | disposition home or self-care (01) ==
LOC: HO.RHE 12:24
PROVIDERS: PCP Internal Medicine; Visit Provider Student in an Organized Health Care Education/Training Program
DX: M35.3 Polymyalgia rheumatica (principal); M31.6 Other giant cell arteritis; Z79.52 Long term (current) use of systemic steroids
CPT/HCPCS: 99215; G2211

== ENCOUNTER → 2024-04-19 12:24 | Outpatient (BNVA) | payer OTHER, SELFPAY | PROVIDERS: PCP Internal Medicine; Visit Provider Student in an Organized Health Care Education/Training Program | DX: M35.3 Polymyalgia rheumatica (principal); M31.6 Other giant cell arteritis; Z79.52 Long term (current) use of systemic steroids | CPT/HCPCS: 99212 ==

== ENCOUNTER 2024-04-25 08:25 | Outpatient (AMB) | payer OTHER, SELFPAY ==
--- NOTE | 2024-04-25 08:39 | A.OFFVIS_ITS ---
<Statement entered by RUFINO Gasca - 04/25/24 09:32> Blood pressure Rt arm~ 180/ 84 Patient states blood monitor at home has been showing high BP's as well. She will contact PCP. Vital Signs 04/25/24 08:42 Height 5 ft 2.5 in Weight 170 lb BMI 30.6 Position Sitting Pulse 60 Intake Visit Reasons: GCA ? bx Intake Note: Patient referred by Dr. Braden for Occipital artery vs TA biopsy. Current txt Prednisone 10mg QD. Patient c/o: chronic daily headaches improved with txt. 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 Accompanied by: spouse Ruddy Allergies hydralazine Allergy (Severe, Verified 04/25/24 08:39) Shortness of Breath Sulfa (Sulfonamide Antibiotics) Allergy (Intermediate, Verified 04/25/24 08:39) Rash sulfamethoxazole [From Bactrim] Allergy (Intermediate, Verified 04/25/24 08:39) Rash trimethoprim [From Bactrim] Allergy (Intermediate, Verified 04/25/24 08:39) Rash rosuvastatin Adverse Reaction (Severe, Verified 04/25/24 08:39) Joint Pain Medication List - Last Reconciled 04/25/24 by Erasmo Brothers MD cetirizine 10 mg PO BEDTIME clonazepam 0.5 mg PO TID PRN CPAP As directed levothyroxine 100 mcg PO DAILY prednisone 10 mg PO DIRECTED spironolactone 50 mg PO DAILY HPI Comments Details: Patient presents with her . She is here status post referral for Rheumatology for urgent right temporal artery biopsy for evaluation of giant cell arteritis. Patient has had symptoms of right-sided head/scalp pain and some visual issues. She was started on steroids. 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) use of systemic steroids Paresthesias Vertigo HTN (hypertension) Arthritis Anemia Hypothyroidism Vertigo Anxiety Back pain Surgical History (Updated 04/25/24 @ 09:27 by Erasmo Brothers MD) Giant cell arteritis H/O: hysterectomy H/O esophageal hernia repair Family History Brother Liver disease Cancer Sister Stroke Diabetes Sister Cancer Rheumatoid arthritis Sister Vitiligo Rheumatoid arthritis Daughter Vitiligo Social History Household Members: Spouse Housing: House Are you a primary auto care center manager to a significant other at home: No Do you presently have visiting nurse or other home services: No 75 years or older and lives alone: No Alcohol intake: current Alcohol intake frequency: a few times a week Alcohol type: wine Patient Tobacco Use Status: Former Tobacco user Years Smoked: Quit 25 years ago e-Cigarette/Vaping Use: Never Used service: No Current occupational status: retired Physical Exam Vital Signs: Last Vital Signs Pulse 60 04/25/24 08:42 BMI result Body Mass Index 30.6 HEENT Other: No obvious temporal arteries were able to be palpated in the office manually. No gross visual issues. No obvious cervical, periclavicular, or axillary adenopathy bilaterally Chest Other: Chest sounds bilaterally, HS 1 in 2 GI Other: Abdomen corpulent, soft, benign Assessment & Plan Assessment & Plan (1) Giant cell arteritis: Code(s): M31.6 - Other giant cell arteritis Category: Surgical (2) DAREN positive: Comment: 2021: 1:1280, homogeneous Code(s): R76.8 - Other specified abnormal immunological findings in serum Category: Surgical (3) Polymyalgia rheumatica: Comment: onset around 10/2022 elevated ESR and CRP. ++DAREN Prednisone tapered off 12/2023 Code(s): M35.3 - Polymyalgia rheumatica Category: Surgical Plan Current plan is to arrange for temporal artery biopsy (right) in the procedure room later this week. Arrangements were made for this. Risks, benefits, alternatives of procedure reviewed with the patient and her and included but not limited to bleeding, infection, non diagnosis, numbness, pain, scarring the patient wished to proceed. All questions answered. Coding Level of Care Code New Pt Level 5 (08695) Diagnoses Giant cell arteritis M31.6 DAREN positive R76.8 Polymyalgia rheumatica M35.3
[2024-04-25 08:42] VITALS: PULSE 60; BMI 30.6
--- OUTSIDE RECORDS SUMMARY | 2024-04-25 08:42 | XMS_ITS | Encounter Summary ---
Author Organization [facility] [place] [address] Care Team Providers Care Gasoline Catalyst Operator Name Role Phone Belia Villavicencio MD Primary Care Prov ider Reason for Visit * Reason Onset Date Comments Medicare Annual Wellness Visit Subsequent 2024 AWV DUE 2024 Encounter Details Date Type Department Care Team (Late st Contact Info) Description 03/27/2024 Telephone Adult Medicine - [place] [address] [place] [phone] Mary Devries [place] Medicare Annual Wellness Visit [...] your loved ones. For example, director child development center or elderly care for an older adult? [...] the following message in the appt, (call [phone]/TAC.) Changed Length from 15 to 30. Changed Arrival Time from 1:30 pm to 1:15 pm. PT is on the December/2023 report. documented in this encounter Plan of Treatment Upcoming Encounters Date Type Department Care Team (Late st Contact Info) Description 09/29/2024 1:15 PM EDT Office Visit Adult Medicine - [place] [address] [place] [address] Belia Villavicencio MD [address] [place] [address] documented as of this encounter Visit Diagnoses Not on filedocumented in this encounter Additional Health Concerns Assessment Noted Time PHQ-9 Depression Total Score: 0 03/27/19 4:47 PM EST documented as of this encounter Care Teams Gasoline Catalyst Operator Relationship Specialty Start Date End Date Belia Villavicencio MD [address] [place] [address] PCP - General Internal Medicine 01/17/24 documented as of this encounter
--- OUTSIDE RECORDS SUMMARY | 2024-04-25 08:42 | XMS_ITS | Clinical Summary ---
Author Organization [facility] Address [address] [place] [address] Care Team Providers Care Telephony Engineer Name Role Phone Urvashi Paredes NP Primary Care Provider [phone] Allergies Active Allergy Reactions Criticality Noted Date [...] age to complete this topic Care Teams Telephony Engineer Relationship Specialty Start Date End Date Urvashi Paredes, APARTMENT LOCATOR [address] [place] [address] PCP - General Nurse Practitioner 08/10/20
--- OUTSIDE RECORDS SUMMARY | 2024-04-25 08:42 | XMS_ITS | Clinical Summary ---
Author Organization [facility] Address [address] [place] [address] Phone Care Team Providers Care Track Man Name Role Phone Belia Villavicencio MD Primary Care Prov ider Allergies Active Allergy Reactions Criticality Noted Date Comments Gluten Itching,GI intolerance 01/03/2024 Hydralazine Cardiac Issue High 02/16/2024 Severe chest pain Jtdayph-Rwh-Izv Reductase Inhibitors Muscular Issues High 01/08/2023 Sulfa [...] Additional Information Patient not taking.Reported on 03/27/2024 amoxicillin (AMOXIL) 500 mg capsule Take 2 [...] for 7 days. 21 each 5 025 cefadroxil 500 mg capsule Take 1 capsule (500 mg total) by mouth 2 (two) times a day for 10 days. 20 capsule 5 025 Active Problems Problem Noted Date [...] risk, benefits, and alternatives of a da Ofelia paraesophageal hernia repair with mesh and fundoplication [...] engaged with Dr. Reeves of rheumatology at [facility] 03/30/2022 Positive DAREN (antinuclear antibody) 06/18/2021 Obesity [...] Encounters Date Type Department Care Team Description 04/24/2024 Telephone Adult Medicine - [facility] [address] [place] [address] Belia Villavicencio MD Return Call From Center/Facility 04/24/2024 Telephone [facility] [address] [place] [address] Olivia Montano NP 04/24/2024 Nurse Triage Adult Medicine - [facility] [address] [place] [phone] Belia Villavicencio MD Bradycardia 04/18/2024 11:18 AM EST - 04/18/2024 11:59 PM EST Hospital Encounter CT Scan - [address] [phone] Chronic nonintractable headache, unspecified headache type Discharge Disposition: Home or Self Care 04/17/2024 Telephone Adult [address] [phone] Belia Villavicencio MD Faxed Order Mammogram and Ultrasound 04/12/2024 3:30 PM EST Office Visit [facility] [place] [address] [place] [address] Sue Williamson NP Acute non-recurrent maxillary sinusitis (Primary Dx) 03/30/2024 12:29 PM EST - 03/30/2024 11:59 PM EST Hospital Encounter Radiology Department - [address] [phone] Submandibular gland mass Discharge Disposition: Home or Self Care 03/28/2024 2:30 PM EST Office Visit Adult [address] [phone] Belia Villavicencio MD Rheumatoid arthritis, involving unspecified site, unspecified whether rheumatoid factor present ([facility]) (Primary Dx); Primary hypertension; Celiac disease; Iron deficiency; Hypothyroidism, unspecified type; Submandibular gland mass; Rash 03/27/2024 1:30 PM EST Telemedicine Adult [address] [phone] Medicare annual wellness visit, subsequent (Primary Dx) 03/27/2024 Telephone Adult [address] [phone] Mary Devries [place] Medicare Annual Wellness Visit Subsequent (AWV DUE 2024) 03/16/[address] [phone] Belia Villavicencio MD Blood work; Labs Only 02/24/2024 9:20 AM EST Office Visit Gastroenterology - [place] [address] [place] [phone] Sylvain Laws PA Celiac sprue (Primary Dx); History of repair of hiatal hernia; H/O chest pain; Gastroesophageal reflux disease with esophagitis without hemorrhage; Fatty liver; Bacterial infection due to H. pylori 02/17/2024 Telephone Pulmonology - [place] [address] [facility] [address] [place] [phone] Mojgan Vanegas [place] 02/16/2024 10:30 AM EST Office Visit Thoracic Surgery - [place] [address] [phone] Srinath Ibarra PA Incarcerated paraesophageal hernia (Primary Dx) 02/16/2024 7:23 AM EST - 02/16/2024 11:59 PM EST Hospital Encounter [facility] Xray [address] [place] [phone] Diaphragmatic hernia with obstruction, without gangrene Discharge Disposition: Home or Self Care 02/14/2024 3:30 PM EST Office Visit Adult Medicine [facility] [address] [place] [address] Belia Villavicencio MD Allergic drug rash due to non-narcotic analgesic (Primary Dx); Angioedema, subsequent encounter; Gastroesophageal reflux disease without esophagitis; Palpitations; Diarrhea, unspecified type 02/08/2024 11:38 PM EST - 02/09/2024 7:08 AM EST Emergency [facility] Emergency [address] [place] [phone] Jeremiah Kaur MD Other chest pain (Primary Dx); Chest wall pain Discharge Disposition: Home or Self Care 01/31/2024 1:00 PM EST Office Visit Thoracic Surgery [facility] [address] [phone] Srinath Ibarra PA Incarcerated paraesophageal hernia (Primary Dx) 01/31/2024 Telephone Adult [facility] [address] [place] [phone] Belia Villavicencio MD Medication Problem 01/26/2024 Telephone [facility] [address] [facility] [address] [place] [address] Srinath Mercado MD hernia surgery from Last 3 Months Immunizations Name Administration [...] PM EDT Office Visit Adult Medicine - [facility] [address] [place] [address] Belia Villavicencio MD [address] [place] [address] Health Maintenance Due Date Last Done Comments [...] this topic Medical Devices Implanted Type Area Mobile Application Tester Device Identifier Shelf Expiration Date Model / Serial / Lot Sealant Fibrin Vistaseal 10ml - [id number] - [id number] Implanted:Qty: 1 on 01/18/2024 by Emily Ho MD at [facility] Hemostasis N/A: Abdomen [employer] [id number] 09/13/2025 VST10 / [id number] / [id number] Tissue Ovitex 1s Perm 6x10cm - [facility] - [id number] Implanted:Qty: 1 on 01/18/2024 by Emily Ho MD at [facility] Surgical Mesh Sling Implants N/A: Abdomen [employer]ARGY [employer] [id number] 07/05/2025 [id number] / NA / [id number] 1 Procedures Procedure Name Priority Date/Time Associated Diagnosis Comments CT HEAD WO CONTRAST Routine 04/18/2024 1 1:40 AM EST Chronic nonintractable headache, unspecified headache type POC INFLUENZA A/B Routine 04/13/2024 9:5 5 AM EST Acute non-recurrent maxillary sinusitis POC RAPID [id number], MOLECULAR Routine 04/13/2024 9:54 AM EST Acute [...] ECG EXTERNAL Routine 01/26/2024 11:26 AM EST LIPID PANEL Routine 09/20/2023 HM COLONOSCOPY Routine 10/07/2022 DXA BONE DENSITY STUDY [...] Signed Date: 04/18/2024 12:21 ET Workstation ID: [id number] Transcribed By: Self Edit Transcribed Date: 04/18/2024 [...] Signed Date: 04/18/2024 12:21 ET Workstation ID: [id number] Transcribed By: Self Edit Transcribed Date: 04/18/2024 11:58 ET us Belia Villavicencio MD IM CT PROCEDURES Final Result * POC Influenza A/B manually resulted (04/13/2024 9:55 AM EST) Rapid Influenza A AGN POC Negative Negative Rapid Influenza B AGN POC Negative Negative Swab 04/13/2024 9:55 AM EST us Sue Williamson NP POINT OF CARE TEST ENTER/EDIT ORDERABLES Final Result * Poc Rapid [id number], MOLECULAR (04/13/2024 9:54 AM EST) COVID-19/SARS- COV-2 Rapid POC Negative Negative Swab Nasopharyngeal structure / Unknown 04/13/2024 9:54 AM EST us Sue Williamson GRID TRIMMER POINT OF CARE TEST ENTER/EDIT ORDERABLES Final [...] Signed Date: 03/30/2024 13:21 ET Workstation ID: [id number] Transcribed By: Self Edit Transcribed Date: 03/30/2024 [...] Signed Date: 03/30/2024 13:21 ET Workstation ID: [id number] Transcribed By: Self Edit Transcribed Date: 03/30/2024 13:20 ET Belia Villavicencio MD IMG US PROCEDURES Final Result * Thyroid stimulating hormone with reflex to free t4 and free t3 (03/28/2024 3:27 PM EST) TSH 1.42 0.40 - 4.00 mcIU/mL LAB CHEMISTRY METHOD 03/28/2024 6:38 PM EST [facility] Blood Venous blood specimen / Unknown Venipuncture / Unknown 03/28/2024 3:27 PM EST 03/28/2024 3:27 PM EST Belia Villavicencio MD LAB BLOOD ORDERABL ES Final Result [facility] [address] [place] [address], * (ABNORMAL) Iron and TIBC (03/28/2024 3:27 PM EST) Iron 151(H) 40 - 150 mcg/dL LAB CHEMISTRY METHOD 03/28/2024 6:28 PM EST [facility] TIBC 376 250 - 450 mcg/dL LAB CHEMISTRY METHOD 03/28/2024 6:28 PM EST [facility] Iron Saturation 40 15 - 50 % LAB CHEMISTRY METHOD 03/28/2024 6:28 PM EST [facility] Blood Venous blood specimen / Unknown Venipuncture / Unknown 03/28/2024 3:27 PM EST 03/28/2024 3:27 PM EST Belia Villavicencio MD LAB BLOOD ORDERABL ES Final Result Performing Organization Address [facility]/ZIP Co de Phone Number [facility] [address] [place] [address], [place] [phone] * Helicobacter pylori breath test (03/28/2024 3:27 PM EST) H Pylori Breath Test Negative Negative LAB CHEMISTRY METHOD 03/29/2024 11:27 AM EST [facility] Breath Oral cavity structure / Unknown Non-blood Collection / Unknown 03/28/2024 3:27 PM EST 03/28/2024 3:27 PM EST Sylvain DAILY LAB BODY FLUIDS AND STOOLS LUIS FERNANDO DANIEL Final Result Performing Organization Address [facility]/ZIP Co de Phone Number [facility] [address] [place] [address], [place] [phone] * XR Esophagram (02/16/2024 8:20 AM EST) Anatomical Region Laterality Modality Head [...] Signed Date: 02/16/2024 11:15 ET Workstation ID: [id number] Transcribed By: Self Edit Transcribed Date: 02/16/2024 10:59 ET Resident/PA/GRID TRIMMER: Nona Kapadia Narrative 02/16/2024 11:15 AM EST FINDINGS: Double contrast esophagram performed. COMPARISON: Esophagram January 19, 2024 HISTORY: Patient is a 68-year-old female one month status post hiatal hernia repair. Employee Services Manager radiographs: 1 view chest radiograph demonstrates cardiac [...] female one month status post hiatalhernia repair. Employee Services Manager radiographs: 1 view chest radiograph demonstrates cardiac [...] Signed Date: 02/16/2024 11:15 ET Workstation ID: [id number] Transcribed By: Self Edit Transcribed Date: 02/16/2024 10:59 ET Resident/PA/GRID TRIMMER: Nona Kapadia us Emily Ho MD IMG FLUOROSCOPY PROCEDURES Final Result * ECG 12 lead (02/09/2024 2:06 AM EST) Pathologist [facility] Ventricular Rate ECG 85 BPM GEMUSE Atrial Rate 85 BPM GEMUSE P-R Interval 236 ms GEMUSE QRS Duration 84 ms GEMUSE Q-T Interval 394 ms GEMUSE QTc 468 ms GEMUSE P Wave [place] 23 degrees GEMUSE R [place] 29 degrees GEMUSE T [place] 9 degrees GEMUSE ECG Interpretation Sinus rhythm with 1st degree A-V block Otherwise normal ECG When compared with ECG of 11-JAN-2024 10:10, [place] interval has increased Vent. rate has increased BY ??28 BPM Confirmed by BONITA BACH ([id number]) on 02/09/2024 9:40:31 AM GEMUSE 02/09/2024 2:06 AM EST 02/09/2024 9:40 AM EST us Jeremiah Kaur MD ECG ORDERABLES Final Result GEMUSE * Troponin I high sensitivity (02/09/2024 2:00 AM EST) Only the most recent of2 resultswithin the time period is included. [facility] High Sensitivity Troponin I 15 <=54 ng/L LAB CHEMISTRY METHOD 02/09/2024 2:35 AM EST [facility] Blood Venous blood specimen / Unknown Venipuncture / Unknown 02/09/2024 2:00 AM EST 02/09/2024 2:13 AM EST Narrative [facility] - 02/09/2024 2:35 AM EST High levels of biotin in samples may falsely decrease hsTroponin values. ??Use caution when interpreting hsTroponin results in patients taking biotin who exhibit renal impairment (eGFR <60) or in patients taking more than 20 mg/day of biotin. us Jeremiah Kaur MD LAB BLOOD ORDERABLES Final Resu Performing Organization Address [facility] de Phone Number [facility] [address] [place] [address], [place] [phone] * (ABNORMAL) D-dimer, quantitative (02/09/2024 2:00 AM EST) D-Dimer, Quant (D-DU) 673(H) <=230 ng/mL DDU LAB COAGULATION METHOD 02/09/2024 2:31 AM EST [facility] Blood Venous blood specimen / Unknown Venipuncture / Unknown 02/09/2024 2:00 AM EST 02/09/2024 2:13 AM EST Narrative [facility] - 02/09/2024 2:31 AM EST D-Dimer <230 ng/mL (D-Dimer units) is the threshold for exclusion of DVT/PE. D-Dimer may be elevated in: Critically ill, severely infected, trauma patients, DIC, acute CVA, acute [place], unstable angina, AF, old age, , and smoking. D-Dimer may be decreased with: Initiation of heparin therapy and oral anticoagulants. us Jeremiah Kaur MD LAB BLOOD ORDERABLES Final Resu Performing Organization Address [facility] de Phone Number [facility] [address] [place] [address], [place] [phone] * CT Angio Chest/Abdomen/Pelvis wo and/or w [...] by: Wilder Camilo DO on 02/09/2024 02:11:47 [facility] Karu [facility] IM CT PROCEDURES Edited Result - Final * (ABNORMAL) CBC auto differential (02/08/2024 11:50 PM EST) WBC 11.0(H) 4.8 - 10.8 K/mcL LAB HEMETOLOGY METHOD 02/09/2024 12:26 AM [facility] RBC 4.80 3.80 - 4.80 M/mcL LAB HEMETOLOGY METHOD 02/09/2024 12:26 AM [facility] Hemoglobin 12.7 11.5 - 16.0 g/dL LAB HEMETOLOGY METHOD 02/09/2024 12:26 AM [facility] Hematocrit 38.7 35.0 - 47.0 % LAB HEMETOLOGY METHOD 02/09/2024 12:26 AM [facility] MCV 80.0 79.0 - 98.0 FL LAB HEMETOLOGY METHOD 02/09/2024 12:26 AM [facility] MCH 26.2(L) 27.0 - 32.0 pcg LAB HEMETOLOGY METHOD 02/09/2024 12:26 AM [facility] MCHC 32.8 32.0 - 37.0 g/dL LAB HEMETOLOGY METHOD 02/09/2024 12:26 AM [facility] RDW 12.7 11.0 - 15.0 % LAB HEMETOLOGY METHOD 02/09/2024 12:26 AM [facility] Platelets 390 130 - 400 K/mcL LAB HEMETOLOGY METHOD 02/09/2024 12:26 AM [facility] MPV 10.4 7.0 - 11.0 FL LAB HEMETOLOGY METHOD 02/09/2024 12:26 AM [facility] NRBC 0.0 <1.0 % LAB HEMETOLOGY METHOD 02/09/2024 12:26 AM [facility] NRBC Absolute 0.00 <0.10 K/mcL LAB HEMETOLOGY METHOD 02/09/2024 12:26 AM [facility] Neutrophils Relative 55.2 % LAB HEMETOLOGY METHOD 02/09/2024 12:26 AM [facility] Lymphocytes Relative 29.3 % LAB HEMETOLOGY METHOD 02/09/2024 12:26 AM [facility] Monocytes Relative 6.7 % LAB HEMETOLOGY METHOD 02/09/2024 12:26 AM [facility] Eosinophils Relative 7.7 % LAB HEMETOLOGY METHOD 02/09/2024 12:26 AM [facility] Basophils Relative 0.7 % LAB HEMETOLOGY METHOD 02/09/2024 12:26 AM [facility] Immature Granulocytes Relative 0.4 % LAB HEMETOLOGY METHOD 02/09/2024 12:26 AM [facility] Neutrophils Absolute 6.06 1.50 - 7.00 K/mcL LAB HEMETOLOGY METHOD 02/09/2024 12:26 AM [facility] Lymphocytes Absolute 3.22 1.00 - 5.00 K/mcL LAB HEMETOLOGY METHOD 02/09/2024 12:26 AM [facility] Monocytes Absolute 0.74 0.20 - 1.00 K/mcL LAB HEMETOLOGY METHOD 02/09/2024 12:26 AM [facility] Eosinophils Absolute 0.85(H) 0.00 - 0.50 K/mcL LAB HEMETOLOGY METHOD 02/09/2024 12:26 AM [facility] Basophils Absolute 0.08 0.00 - 0.20 K/mcL LAB HEMETOLOGY METHOD 02/09/2024 12:26 AM [facility] Immature Granulocytes Absolute 0.04(H) 0.00 - 0.03 K/mcL LAB HEMETOLOGY METHOD 02/09/2024 12:26 AM [facility] Blood Venous blood specimen / Unknown Venipuncture / Unknown 02/08/2024 11:50 PM EST 02/09/2024 12:15 AM EST us Jeremiah Kaur MD LAB BLOOD ORDERABLES Final Resu lt [facility] [address] [place] [address], * B-type natriuretic peptide (02/08/2024 11:50 PM EST) BNP 63 <=100 pcg/mL LAB CHEMISTRY METHOD 02/09/2024 12:54 AM EST [facility] Blood Venous blood specimen / Unknown Venipuncture / Unknown 02/08/2024 11:50 PM EST 02/09/2024 12:15 AM EST us Jeremiah Kaur MD LAB BLOOD ORDERABLES Final Resu lt Performing Organization Address [facility]/ZIP Co de Phone Number [facility] [address] [place] [address], [place] [phone] * (ABNORMAL) Magnesium (02/08/2024 11:50 PM EST) Magnesium 1.7(L) 1.9 - 2.6 mg/dL LAB CHEMISTRY METHOD 02/09/2024 12:47 AM EST [facility] Blood Venous blood specimen / Unknown Venipuncture / Unknown 02/08/2024 11:50 PM EST 02/09/2024 12:15 AM EST us Jeremiah Kaur MD LAB BLOOD ORDERABLES Final Resu lt Performing Organization Address [facility] Co de Phone Number [facility] [address] [place] [address], [place] [phone] * Lipase (02/08/2024 11:50 PM EST) Lipase 26 13 - 75 unit/L LAB CHEMISTRY METHOD 02/09/2024 12:47 AM EST [facility] Blood Venous blood specimen / Unknown Venipuncture / Unknown 02/08/2024 11:50 PM EST 02/09/2024 12:15 AM EST us Jeremiah Kaur MD LAB BLOOD ORDERABLES Final Resu lt Performing Organization Address [facility]/ZIP Co de Phone Number [facility] [address] [place] [address], [place] [phone] * (ABNORMAL) Comprehensive metabolic panel (02/08/2024 11:50 PM EST) [facility] Sodium 136 133 - 145 mmol/L LAB CHEMISTRY METHOD 02/09/2024 12:47 AM [facility] Potassium 3.2(L) 3.5 - 5.5 mmol/L LAB CHEMISTRY METHOD 02/09/2024 12:47 AM [facility] Chloride 104 96 - 110 mmol/L LAB CHEMISTRY METHOD 02/09/2024 12:47 AM [facility] CO2 21 21 - 32 mmol/L LAB CHEMISTRY METHOD 02/09/2024 12:47 AM [facility] Anion Gap 11 3 - 11 LAB CHEMISTRY METHOD 02/09/2024 12:47 AM [facility] Glucose 115(H) 70 - 100 mg/dL LAB CHEMISTRY METHOD 02/09/2024 12:47 AM [facility] BUN 7 5 - 25 mg/dL LAB CHEMISTRY METHOD 02/09/2024 12:47 AM [facility] Creatinine 0.66 0.50 - 1.10 mg/dL LAB CHEMISTRY METHOD 02/09/2024 12:47 AM [facility] eGFR 96 >=60 mL/min/1. 73m2 LAB CHEMISTRY METHOD 02/09/2024 12:47 AM [facility] Comment:Calculation based on the??Chronic Kidney Disease Epidemiology Collaboration (CKD-EPI) equation refit??without adjustment for race. BUN/Creatinine Ratio 10.6 LAB CHEMISTRY METHOD 02/09/2024 12:47 AM [facility] Calcium 9.3 8.5 - 10.5 mg/dL LAB CHEMISTRY METHOD 02/09/2024 12:47 AM [facility] AST (SGOT) 16 10 - 42 unit/L LAB CHEMISTRY METHOD 02/09/2024 12:47 AM [facility] ALT (SGPT) 23 10 - 60 unit/L LAB CHEMISTRY METHOD 02/09/2024 12:47 AM [facility] Alkaline Phosphatase 74 42 - 121 unit/L LAB CHEMISTRY METHOD 02/09/2024 12:47 AM EST [facility] Total Protein 7.2 6.0 - 8.0 g/dL LAB CHEMISTRY METHOD 02/09/2024 12:47 AM EST [facility] Albumin 3.7 3.2 - 5.0 g/dL LAB CHEMISTRY METHOD 02/09/2024 12:47 AM EST [facility] Total Bilirubin 0.2 0.0 - 1.4 mg/dL LAB CHEMISTRY METHOD 02/09/2024 12:47 AM EST [facility] Blood Venous blood specimen / Unknown Venipuncture / Unknown 02/08/2024 11:50 PM EST 02/09/2024 12:15 AM EST us [facility] Aubrey Kaur MD LAB BLOOD ORDERABLES Final Resu lt [facility] [address] [place] [address], * ECG-Outside (02/08/2024) us Provider Onbase ECG ORDERABLES Final Result * ECG-Annotated (02/08/2024) Provider Onbase ECG ORDERABLES Final Result * ECG-External (01/26/2024 11:26 AM EST) Historical Provider ECG ORDERABLES Final Res ult * (ABNORMAL) Lipid panel (09/20/2023) LDL/HDL Ratio 5(A) 0 - 4 Triglycerides 245(A) 0 - 150 mg/dL Cholesterol 275(A) 0 - 200 mg/dL HDL 60 >=40 mg/dL LDL Cholesterol 166(A) 0 - 100 mg/dL Blood Venous blood specimen / Unknown us Historical Provider LAB BLOOD ORDERABLES Molly l Result * Colonoscopy (10/07/2022) Colonoscopy no interpretation , abstracted Anatomical Region Laterality Modality Other us Historical Provider HEALTH MAINTENANCE Final Result * [...] or over-estimation of fracture risk by FRAX. 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
--- OUTSIDE RECORDS SUMMARY | 2024-04-25 08:42 | XMS_ITS | Encounter Summary ---
Author Organization [employer] [place] [address] Care Team Providers Care Clinical Data Analyst Name Role Phone Belia Villavicencio MD Primary Care Prov ider Reason for Visit * Reason Comments Headache BAR[place], face pressure, S T at night. Onset Wednesday Encounter Details Date Type Department Care Team (Late st Contact Info) Description 04/12/2024 3:30 PM EST Office Visit Walk-In Clinic - [place] [address] [place] [address] Sue Williamson NP [address] [place], [place] [id number] Acute non-recurrent maxillary sinusitis (Primary Dx) Social [...] your loved ones. For example, child care counselor or elderly care for an older adult? [...] Radiculitis, lumbosacral 10/29/2009 Anemia 10/04/2009 Rheumatoid arthritis ([facility]/HCC) 10/04/2009 Hypercholesteremia 10/04/2009 Hypertension 10/04/2009 Hypothyroid 10/04/2009 [...] Reactions Hydralazine Cardiac Issue Severe chest pain Itktvvp-Kad-Uqk Reductase Inhibitors Muscular Issues Gluten Itching and [...] Upcoming Encounters Date Type Department Care Team ([facility] Contact Info) Description 09/29/2024 1:15 PM EDT Office Visit Adult Medicine [address] [place] [address] Belia Villavicencio MD [address] [place], [place] documented as of this encounter Procedures Procedure Name Priority Date/Time Associated Diagnosis Comments POC INFLUENZA A/B Routine 04/13/2024 9:5 5 AM EST Acute non-recurrent maxillary sinusitis POC RAPID [id number], MOLECULAR Routine 04/13/2024 9:54 AM EST Acute non-recurrent maxillary sinusitis documented in this encounter Results * POC Influenza A/B manually resulted (04/13/2024 9:55 AM EST) Pathologist [facility] Rapid Influenza A AGN POC Negative Negative Rapid Influenza B AGN POC Negative Negative Swab 04/13/2024 9:55 AM EST Sue Williamson HOME DAY CARE PROVIDER POINT OF CARE TEST ENTER/EDIT ORDERABLES Final Result * Poc Rapid [id number], MOLECULAR (04/13/2024 9:54 AM EST) Pathologist [facility] COVID-19/SARS- COV-2 Rapid POC Negative Negative Swab Nasopharyngeal structure / Unknown 04/13/2024 9:54 AM EST Sue Williamson HOME DAY CARE PROVIDER POINT OF CARE TEST ENTER/EDIT ORDERABLES Final Result documented in this encounter Visit Diagnoses Diagnosis Acute non-recurrent maxillary sinusitis- Primary documented in this encounter Additional Health Concerns Assessment Noted Time PHQ-9 Depression Total Score: 0 03/27/19 25 4:47 PM EST documented as of this encounter Care Teams Clinical Data Analyst Relationship Specialty Start Date End Date Belia Villavicencio MD [address] [place], [place] PCP - General Internal Medicine 01/17/24 documented as of this encounter
--- OUTSIDE RECORDS SUMMARY | 2024-04-25 08:43 | XMS_ITS | Encounter Summary ---
Author Organization [facility] [place] [address] Care Team Providers Care Block Sorter Name Role Phone Belia Villavicencio MD Primary Care Prov ider Encounter Details Date Type Department Care Team (Late st Contact Info) Description 04/24/2024 Telephone [facility] [address] [place] [phone] Olivia Montano NP [address] [place] [address] [address] [place], [place] [phone] Social History Tobacco Use Types Packs/Day Years [...] care for your loved ones. For example, childcare worker or elderly care for an older adult? [...] as of this encounter Progress Notes * Olivia Montano NP - 04/24/2024 11:24 AM EST Patient on prednisone for giant cell arteritis. She is seeing vascular tomorrow. She has been monitoring her heart rate. She said that last night she noted her heart rate was down to 46 at night. Shehas been taking atenolol 12.5mg daily. Patient reports dizziness mild dizziness yesterday. She called PCP who told her to call cardiology. She was last seen by Dr. Mercado 2 years ago. PCP orders atenolol for blood pressure. She has been on this for years. She has been monitoring heart rate last couple of weeks because she is nervous due to all her other medical problems. She denies any significantdizziness, lightheadedness, syncope or near syncope. After a long discussion I was able to provide r eassurance that heart rate in the 40s while sleeping is not dangerous and she could hold her atenolol for a couple of weeks and continue to monitor her BP and HR. If BP increases she could speak withher PCP about alternative or consider restarting the atenolol since it is such a low dose. Patient was reassured and satisfied with this plan. LUIS Mathew, CLINICAL PSYCHOLOGY PROFESSOR-C, CCK * Olivia Montano NP - 04/24/2024 11:22 AM EST Received message from answering service that patient was having bradycardia. She did not answer my call. Will call again. documented in this encounter Plan of Treatment Upcoming Encounters Date Type Department Care Team (Late st Contact Info) Description 09/29/2024 1:15 PM EDT Office Visit Adult Medicine - [address] [phone] Belia Villavicencio MD [address] [place] [address] documented as of this encounter Visit Diagnoses Not on filedocumented in this encounter Additional Health Concerns Assessment Noted Time PHQ-9 Depression Total Score: 0 03/27/19 25 4:47 PM EST documented as of this encounter Care Teams Block Sorter Relationship Specialty Start Date End Date Belia Villavicencio MD [address] [place] [address] PCP - General Internal Medicine 01/17/24 documented as of this encounter
--- OUTSIDE RECORDS SUMMARY | 2024-04-25 08:43 | XMS_ITS | Patient Health Record ---
Author Organization [facility] Address [address] [place] [address] Care Team Providers Care Nut Sorter Name Role Phone SHANIQUA FERNANDEZ MD Primary Care Provider Unavail able Heena Brasher Unavailable [phone] Reason For Referral No Information Medications Medication [...]
--- OUTSIDE RECORDS SUMMARY | 2024-04-25 08:43 | XMS_ITS | Encounter Summary ---
Author Organization [facility] [place] [address] Care Team Providers Care Core Worker Name Role Phone Belia Villavicencio MD Primary Care Prov ider Reason for Visit * Reason Onset Date Comments Faxed Order Mammogram and Ultrasound 04/17/2024 Encounter Details Date Type Department Care Team ([facility] Contact Info) Description 04/17/2024 Telephone Adult Medicine - [place] [address] [place] [phone] Belia Villavicencio MD [address] [place] [address] Faxed Order Mammogram and Ultrasound Social History [...] your loved ones. For example, child development assistant or elderly care for an older [...] breast dx mammogram and ultrasound received from [facility], requesting signature from provider. Please sign and fax back to [phone]. Order in orange folder documented in this encounter Plan of Treatment Upcoming Encounters Date Type Department Care Team (Late st Contact Info) Description 09/29/2024 1:15 PM EDT Office Visit Adult Medicine - [place] [address] [place] [address] Belia Villavicencio MD [address] [place] [address] documented as of this encounter Visit Diagnoses Not on filedocumented in this encounter Additional Health Concerns Assessment Noted Time PHQ-9 Depression Total Score: 0 03/27/19 25 4:47 PM EST documented as of this encounter Care Teams Core Worker Relationship Specialty Start Date End Date Belia Villavicencio MD [address] [place] [address] PCP - General Internal Medicine 01/17/24 documented as of this encounter
--- OUTSIDE RECORDS SUMMARY | 2024-04-25 08:43 | XMS_ITS | Encounter Summary ---
Author Organization [email or web address] [address] Care Team Providers Care Transmitter Supervisor Name Role Phone Belia Villavicencio MD Primary Care Prov ider Reason for Visit * Reason Comments Medicare Annual Wellness Visit Subsequen t Encounter Details Date Type Department Care Team (Late st Contact Info) Description 03/27/2024 1:30 PM EST Telemedicine Adult Medicine - [place] [address] [place] [phone] Medicare annual wellness visit, subsequent (Primary Dx) [...] your loved ones. For example, early childhood education coordinator or elderly care for an older [...] Nurse Practitioner (Cardiology) ABIMBOLA Grimaldo as Physician Conciliator (Thoracic Surgery) Risk Assessments There is no [...] 0 Opioid Risk Tool No data recorded [facility] Mental Status ([facility]) No data recorded Comprehensive Medical [...] Reactions Hydralazine Cardiac Issue Severe chest pain Zanfvfr-Lts-Shl Reductase Inhibitors Muscular Issues Gluten Itching and [...] to communicate, the services of a qualified compensation adjuster will be provided during the visit. Patients Location: home Additional individuals participating in remote visit: self Total Time: 30 minutes Provider's Location: providers office documented in this encounter Plan of Treatment Upcoming Encounters Date Type Department Care Team (Late st Contact Info) Description 09/29/2024 1:15 PM EDT Office Visit Adult Medicine - [address] [phone] Belia Villavicencio MD [address] [place] [address] documented as of this encounter Visit Diagnoses Diagnosis Medicare annual wellness visit, subsequent- Primary documented in this encounter Additional Health Concerns Assessment Noted Time PHQ-9 Depression Total Score: 0 03/27/19 2:03 PM EST documented as of this encounter Care Teams Transmitter Supervisor Relationship Specialty Start Date End Date Belia Villavicencio MD [address] [place] [address] PCP - General Internal Medicine 01/17/24 documented as of this encounter
--- OUTSIDE RECORDS SUMMARY | 2024-04-25 08:43 | XMS_ITS | Encounter Summary ---
Author Organization [facility] [place] [address] Care Team Providers Care Special Warfare Operator Name Role Phone Belia Villavicencio MD Primary Care Prov ider Reason for Visit * Reason Onset Date Comments Bradycardia 04/24/2024 Encounter Details Date Type Department Care Team ([facility] Contact Info) Description 04/24/2024 Nurse Triage Adult Medicine - [place] [address] [place] [phone] Belia Villavicencio MD [address] [place] [address] Bradycardia Social History Tobacco Use Types Packs/Day Years [...] for your loved ones. For example, director of child welfare services or elderly care for an older adult? [...] as of this encounter Progress Notes * Sarah Vance LPN - 04/24/2024 4:24 PM EST Spoke with patient, provided recommendations of provider, She is in agreement. She stated that she spoke to cardiology and they advised to stop medication and follow up with PCP regarding new medication for hypertension * Sarah Vance LPN - 04/24/2024 2:35 PM EST Left message, awaiting return call * Belia Villavicencio MD - 04/24/2024 11:59 AM EST She is on a very low dose of the atenolol so I do not know that the atenolol is causing the low heart rate. I will have her call her data programmer before she stops taking the atenolol * Sarah Vance LPN - 04/24/2024 10:55 AM EST Patient reports that she is on prednisone 60 mg for GCA. She states for the last 3 night her smart watch has read that her pulse was 46-46-45.She confirmed it with her blood pressure cuff, She does report that she has a history of bradycardia. Advised her to call cardiology and get an appointment. Should she stop taking the atenlol? Reason for Disposition History of hyperthyroidism or taking thyroid medication Heart beating very slowly (e.g., < 50 / minute) in well-conditioned athlete and that caller saysis normal Answer Assessment - Initial Assessment Questions 1. DESCRIPTION: Please describe your heart rate or heartbeat that you are having (e.g., fast/slow, regular/irregular, skipped or extra beats, palpitations ) slow 2. ONSET: When did it start? (e.g., minutes, hours, days) 2 days ago 3. DURATION: How long does it last (e.g., seconds, minutes, hours) Over night on the apple watch+ 4. PATTERN Does it come and go, or has it been constant since it started? Does it get worse withexertion? Are you feeling it now? Yes 5. TAP: Using your hand, can you tap out what you are feeling on a chair or table in front of you,so that I can hear? Note: Not all patients can do this. 6. HEART RATE: Can you tell me your heart rate? How many beats in 15 seconds? Note: Not all patients can do this. 7. RECURRENT SYMPTOM: Have you ever had this before? If Yes, ask: When was the last time? and What happened that time? 8. CAUSE: What do you think is causing the palpitations? 9. CARDIAC HISTORY: Do you have any history of heart disease? (e.g., heart attack, angina, bypasssurgery, angioplasty, arrhythmia) No 10. OTHER SYMPTOMS: Do you have any other symptoms? (e.g., dizziness, chest pain, sweating, difficulty breathing) No 11. : Is there any chance you are ? When was your last menstrual period? No Protocols used: Heart Rate and Heartbeat Kjrelttdu-U-IF * Emma Hallman - 04/24/2024 10:41 AM EST Symptoms patient is presenting: pt c/o bradycardia sx. HR 46 & 45. Pt also being treated for giant cell arteritis For ALL patients calling to schedule any appointment (routine, sick visit, follow up, consult, etc.) in the outpatient setting please ask the following questions: Do you have fever of higher than 101, sore throat with difficulty swallowing or severe shortness ofbreath? NO If YES to any of these above symptoms, send a message to triage and do not book. Red dot. If no, an audio or video visit should be booked. Have you had close contact with someone with Coronavirus in the last 14 days? NO Have you traveled abroad? NO Have you traveled recently to another state outside of [place], [place], [place], [place], [place], [place], [place]? NO o If yes, did you quarantine for 14 days or have a negative covid test? NO If yes to any of the above, patient is not to be scheduled in office until after 14 day quarantine or negative covid test. If pain or injury related was it due to an accident at work or from a motor vehicle accident? NO If yes, gather 3rd democrat insurance information Date of accident/Injury: n/a How long has patient had these symptoms?: 3 days PCP: Dr Gutierrez Payor: [facility] documented in this encounter Plan of Treatment Upcoming Encounters Date Type Department Care Team (Late st Contact Info) Description 09/29/2024 1:15 PM EDT Office Visit Adult Medicine - [place] [address] [place] [address] Belia Villavicencio MD [address] [place] [address] documented as of this encounter Visit Diagnoses Not on filedocumented in this encounter Additional Health Concerns Assessment Noted Time PHQ-9 Depression Total Score: 0 03/27/19 4:47 PM EST documented as of this encounter Care Teams Special Warfare Operator Relationship Specialty Start Date End Date Belia Villavicencio MD [address] [place] [address] PCP - General Internal Medicine 01/17/24 documented as of this encounter
--- OUTSIDE RECORDS SUMMARY | 2024-04-25 08:43 | XMS_ITS | Encounter Summary ---
[facility] [place] [address] Care Team Providers Care Lab Tester Name Role Phone Belia Villavicencio MD Primary Care Prov ider Reason for Referral * Imaging (Routine) - Pending Review Specialty Diagnoses / Procedures Referred By Moon hendrickson Referred To Contact Radiology Diagnoses Submandibular gland mass Procedures US Head Neck Soft Tissue Belia Villavicencio MD [address] [place] [address] Phone: tel: fax: [facility] [address] [facility] [address] [place] [address] Phone: tel: Referral ID Status Reason Start Date Expiration Date V isits Requested Visits Authorized [id number] Pending Review 03/28/2024 03/28/2025 1 1 Reason for Visit * Reason Comments Hypertension Follow-up Encounter Details Date Type Department Care Team ([facility] st Contact Info) Description 03/28/2024 2:30 PM EST Office Visit Adult Medicine [facility] [address] [place] [phone] Belia Villavicencio MD [address] [place] [address] Rheumatoid arthritis, involving unspecified site, unspecified whether [...] your loved ones. For example, child care centre manager or elderly care for an older adult? [...] and anxiety. She is followed by the counselor aid for her inflammatory dermatitis. She was recently [...] time each day.30 each 11 ALLERGIES: Hydralazine, Yulweit-yzd-dag reductase inhibitors, Gluten, and Sulfa (sulfonamide antibiotics) [...] PLAN: New diagnosis of rheumatoid arthritis Her appeals rn to be starting her on disease modifying [...] PM EDT Office Visit Adult Medicine - [address] [phone] Belia Villavicencio MD [address] [place] [address] documented as of this encounter Results * [...] Signed Date: 03/30/2024 13:21 ET Workstation ID: [id number] Transcribed By: Self Edit Transcribed Date: 03/30/2024 [...] Date: 03/30/2024 13:20 ET Assigned Physician: Felecia Roht Reviewed and Electronically Signed By: Felecia Roth Signed Date: 03/30/2024 13:21 ET Workstation ID: [id number] Transcribed By: Self Edit Transcribed Date: 03/30/2024 13:20 ET Belia Villavicencio MD IMG US PROCEDURES Final Result * (ABNORMAL) Iron and TIBC (03/28/2024 3:27 PM EST) Iron 151(H) 40 - 150 mcg/dL LAB CHEMISTRY METHOD 03/28/2024 6:28 PM EST [facility] TIBC 376 250 - 450 mcg/dL LAB CHEMISTRY METHOD 03/28/2024 6:28 PM EST [facility] Iron Saturation 40 15 - 50 % LAB CHEMISTRY METHOD 03/28/2024 6:28 PM EST [facility] Blood Venous blood specimen / Unknown Venipuncture / Unknown 03/28/2024 3:27 PM EST 03/28/2024 3:27 PM EST Belia Villavicencio MD LAB BLOOD ORDERABL ES Final Result [facility] [address] [place] [address], [place] [phone] * Thyroid stimulating hormone with reflex to free t4 and free t3 (03/28/2024 3:27 PM EST) TSH 1.42 0.40 - 4.00 mcIU/mL LAB CHEMISTRY METHOD 03/28/2024 6:38 PM EST [facility] Blood Venous blood specimen / Unknown Venipuncture / Unknown 03/28/2024 3:27 PM EST 03/28/2024 3:27 PM EST us Belia Villavicencio MD LAB BLOOD ORDERABL ES Final Result [facility] [address] [place] [address], documented in this encounter Visit Diagnoses Diagnosis Rheumatoid arthritis, involving unspecified site, unspecified whether rheumatoid factor present (CMS/[facility])- Primary Primary hypertension Unspecified essential hypertension Celiac [...] documented as of this encounter Care Teams Lab Tester Relationship Specialty Start Date End Date Belia Villavicencio MD [address] [place] [address] PCP - General Internal Medicine 01/17/24 documented as of this encounter
--- OUTSIDE RECORDS SUMMARY | 2024-04-25 08:43 | XMS_ITS | Encounter Summary ---
Author Organization [facility] [place] [address] Care Team Providers Care Asic Design Engineer Name Role Phone Belia Villavicencio MD Primary Care Prov ider Reason for Visit * Reason Onset Date Comments Return Call From Center/Facility 04/24/2024 Encounter Details Date Type Department Care Team ([facility] st Contact Info) Description 04/24/2024 Telephone Adult Medicine [facility] [address] [place] [phone] Belia Villavicencio MD [address] [place] [address] Return Call From Center/Facility Social History Tobacco Use Types Packs/Day Years [...] for your loved ones. For example, child welfare specialist or elderly care for an older [...] Notes * Sarah Vance LPN - 04/24/2024 4:28 PM EST See previous encounter * Krista Blevins - 04/24/2024 4:10 PM EST Look at previous encounter from today. 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 from DEMOLITIONIST and states she called forensic identification specialist and advised her to stop taking Atenolol to see if theres any changes documented in this encounter Plan of Treatment Upcoming Encounters Date Type Department Care Team (Late st Contact Info) Description 09/29/2024 1:15 PM EDT Office Visit Adult Medicine - [place] [address] [place] [address] Belia Villavicencio MD [address] [place] [address] documented as of this encounter Visit Diagnoses Not on filedocumented in this encounter Additional Health Concerns Assessment Noted Time PHQ-9 Depression Total Score: 0 03/27/19 4:47 PM EST documented as of this encounter Care Teams Asic Design Engineer Relationship Specialty Start Date End Date Belia Villavicencio MD [address] [place] [address] PCP - General Internal Medicine 01/17/24 documented as of this encounter
--- OUTSIDE RECORDS SUMMARY | 2024-04-25 08:43 | XMS_ITS | Encounter Summary ---
Author Organization [facility] [place] [address] Care Team Providers Care Family Practice Physician Assistant Name Role Phone Belia Villavicencio MD Primary Care Prov ider Reason for Referral * Imaging (Routine) - Pending Review Specialty Diagnoses / Procedures Referred By Moon hendrickson Referred To Contact Radiology Diagnoses Submandibular gland mass Procedures US Head Neck Soft Tissue Belia Villavicencio MD [address] [place], [place] Phone: tel: fax: [facility] [address] [facility] [address] [place] [address] Phone: tel: Referral ID Status Reason Start Date Expiration Date V isits Requested Visits Authorized [id number] Pending Review 03/28/2024 03/28/2025 1 1 Reason for Visit * Imaging (Routine) - Pending Review Specialty Diagnoses / Procedures Referred By Moon hendrickson Referred To Contact Radiology Diagnoses Submandibular gland mass Procedures US Head Neck Soft Tissue Belia Villavicencio MD [address] [place], [place] Phone: tel: fax: [facility] [address] [facility] [address] [place] [address] Phone: tel: Referral ID Status Reason Start Date Expiration Date V isits Requested Visits Authorized [id number] Pending Review 03/28/2024 03/28/2025 1 1 Encounter Details Date Type Department Care Team (Latest Contact Info) Description 03/30/2024 12:29 PM EST - 03/30/2024 11:59 PM EST Hospital Encounter Radiology Department - [address] [address] Submandibular gland mass Discharge Disposition: Home or [...] for your loved ones. For example, child advocate or elderly care for an older adult? [...] 1:15 PM EDT Office Visit Adult Medicine [facility] [address] [place] [address] Belia Villavicencio MD [address] [place] [address] documented as of this encounter Procedures Procedure [...] Signed Date: 03/30/2024 13:21 ET Workstation ID: [id number] Transcribed By: Self Edit Transcribed Date: 03/30/2024 [...] Signed Date: 03/30/2024 13:21 ET Workstation ID: [id number] Transcribed By: Self Edit Transcribed Date: 03/30/2024 13:20 ET us Belia Villavicencio MD IMG US PROCEDURES Final Result documented in this encounter Visit Diagnoses Diagnosis Submandibular gland mass documented in this encounter Additional Health Concerns Assessment Noted Time PHQ-9 Depression Total Score: 0 03/27/19 25 4:47 PM EST documented as of this encounter Care Teams Family Practice Physician Assistant Relationship Specialty Start Date End Date Belia Villavicencio MD [address] [place] [address] PCP - General Internal Medicine 01/17/24 documented as of this encounter
--- OUTSIDE RECORDS SUMMARY | 2024-04-25 08:43 | XMS_ITS | Encounter Summary ---
Author [facility] [place] [address] Care Team Providers Care Covered Buckle Assembler Name Role Phone Belia Villavicencio MD Primary Care Prov ider Reason for Referral * Imaging (Routine) - Closed Specialty Diagnoses / Procedures Referred By Moon hendrickson Referred To Contact Radiology Diagnoses Chronic nonintractable headache, unspecified headache type Procedures CT Head wo Contrast Belia Villavicencio MD [address] [place] [address] Phone: tel: fax: [place] [facility] [address] Phone: tel: fax: Referral ID Status Reason Start Date Expiration Date Visits Re quested Visits Authorized [id number] Closed 04/13/2024 04/13/2025 1 1 Reason for Visit * Imaging (Routine) - Closed Specialty Diagnoses / Procedures Referred By Moon hendrickson Referred To Contact Radiology Diagnoses Chronic nonintractable headache, unspecified headache type Procedures CT Head wo Contrast Belia Villavicencio MD [address] [place] [address] Phone: tel: fax: CT Scan - [place] [address] [place], [place] Phone: tel: fax: Referral ID Status Reason Start Date Expiration Date Visits Re quested Visits Authorized [id number] Closed 04/13/2024 04/13/2025 1 1 Encounter Details Date Type Department Care Team (Latest Contact Info) Description 04/18/2024 11:18 AM EST - 04/18/2024 11:59 PM EST Hospital Encounter CT Scan - [place] [address] [place], [place] [phone] Chronic nonintractable headache, unspecified headache type Discharge [...] your loved ones. For example, early childhood associate or elderly care for an older adult? [...] each day. 30 each 11 02/14/2024 02/13/2025 cefadroxil 500 mg capsule Take 1 capsule (500 mg total) by mouth 2 (two) times a day for 10 days. 20 capsule 04/12/2024 04/22/2024 documented as of this encounter Discharge Disposition Disposition Code Departure Means Destination Home or Self Care documented in this encounter Plan of Treatment Upcoming Encounters Date Type Department Care Team (Late st Contact Info) Description 09/29/2024 1:15 PM EDT Office Visit Adult Medicine [address] [address] Belia Villavicencio MD [address] [place] [address] documented as of this encounter Procedures Procedure [...] Signed Date: 04/18/2024 12:21 ET Workstation ID: [id number] Transcribed By: Self Edit Transcribed Date: 04/18/2024 [...] Signed Date: 04/18/2024 12:21 ET Workstation ID: [id number] Transcribed By: Self Edit Transcribed Date: 04/18/2024 11:58 ET Belia Villavicencoi MD IMG CT PROCEDURES Final Result documented in this encounter Visit Diagnoses Diagnosis Chronic nonintractable headache, unspecified headache type documented in this encounter Additional Health Concerns Assessment Noted Time PHQ-9 Depression Total Score: 0 03/27/19 25 4:47 PM EST documented as of this encounter Care Teams Covered Buckle Assembler Relationship Specialty Start Date End Date Belia Villavicencio MD [address] [place] [address] PCP - General Internal Medicine 01/17/24 documented as of this encounter
== END 2024-04-25 09:32 | disposition home or self-care (01) ==
PROVIDERS: PCP Internal Medicine; Referring Provider Student in an Organized Health Care Education/Training Program; Visit Provider Surgery
DX: M31.6 Other giant cell arteritis (principal); R76.8 Other specified abnormal immunological findings in serum; M35.3 Polymyalgia rheumatica
CPT/HCPCS: 99204

== ENCOUNTER → 2024-04-25 08:25 | Outpatient (BNVA) | payer OTHER, SELFPAY | PROVIDERS: PCP Internal Medicine; Referring Provider Student in an Organized Health Care Education/Training Program; Visit Provider Surgery | DX: M31.6 Other giant cell arteritis (principal); R76.8 Other specified abnormal immunological findings in serum; M35.3 Polymyalgia rheumatica | CPT/HCPCS: 99202 ==

== ENCOUNTER 2024-04-28 08:26 | Day surgery (SDC) | payer OTHER, SELFPAY ==
--- OUTSIDE RECORDS SUMMARY | 2024-04-25 13:04 | XMS_ITS | Encounter Summary ---
Author Organization [facility] [place] [address] Care Team Providers Care Ross Furnace Operator Name Role Phone Belia Villavicencio MD Primary Care Prov ider Encounter Details Date Type Department Care Team (Late st Contact Info) Description 04/24/2024 Telephone [facility] [address] [place] [phone] Olivia Montano NP [address] [place] [address] [address] [place], [place] [phone] Social History Tobacco Use Types Packs/Day Years [...] your loved ones. For example, child welfare counselor or elderly care for an older [...] and satisfied with this plan. LUIS Mathew, BANDING MACHINE OPERATOR-C, CCK * Olivia Montano NP - 04/24/2024 11:22 AM EST Received message from answering service that patient was having bradycardia. She did not answer my call. Will call again. documented in this encounter Plan of Treatment Upcoming Encounters Date Type Department Care Team (Late st Contact Info) Description 09/29/2024 1:15 PM EDT Office Visit Adult Medicine - [address] [phone] Belia Villavicencio MD [address] [place] [address] documented as of this encounter Visit Diagnoses Not on filedocumented in this encounter Additional Health Concerns Assessment Noted Time PHQ-9 Depression Total Score: 0 03/27/19 25 4:47 PM EST documented as of this encounter Care Teams Ross Furnace Operator Relationship Specialty Start Date End Date Belia Villavicencio MD [address] [place] [address] PCP - General Internal Medicine 01/17/24 documented as of this encounter
--- OUTSIDE RECORDS SUMMARY | 2024-04-25 13:04 | XMS_ITS | Encounter Summary ---
Author Organization [facility] [address] Care Team Providers Care Hybrid Car Mechanic Name Role Phone Belia Villavicencio MD Primary Care Prov ider Reason for Visit * Reason Comments Medicare Annual Wellness Visit Subsequen t Encounter Details Date Type Department Care Team (Late st Contact Info) Description 03/27/2024 1:30 PM EST Telemedicine Adult Medicine - [place] [address] [place] [phone] Medicare annual wellness visit, subsequent (Primary Dx) [...] Nurse Practitioner (Cardiology) ABIMBOLA Grimaldo as Physician Food Chemist (Thoracic Surgery) Risk Assessments There is no [...] 0 Opioid Risk Tool No data recorded [facility] Mental Status ([facility]) No data recorded Comprehensive Medical [...] Reactions Hydralazine Cardiac Issue Severe chest pain Yyuvuhn-Xhs-Lxl Reductase Inhibitors Muscular Issues Gluten Itching and [...] to communicate, the services of a qualified print and pattern designer will be provided during the visit. Patients Location: home Additional individuals participating in remote visit: self Total Time: 30 minutes Provider's Location: providers office documented in this encounter Plan of Treatment Upcoming Encounters Date Type Department Care Team (Late st Contact Info) Description 09/29/2024 1:15 PM EDT Office Visit Adult Medicine - [address] [phone] Belia Villavicencio MD [address] [place] [address] documented as of this encounter Visit Diagnoses Diagnosis Medicare annual wellness visit, subsequent- Primary documented in this encounter Additional Health Concerns Assessment Noted Time PHQ-9 Depression Total Score: 0 03/27/19 2:03 PM EST documented as of this encounter Care Teams Hybrid Car Mechanic Relationship Specialty Start Date End Date Belia Villavicencio MD [address] [place] [address] PCP - General Internal Medicine 01/17/24 documented as of this encounter
--- OUTSIDE RECORDS SUMMARY | 2024-04-25 13:04 | XMS_ITS | Encounter Summary ---
Author Organization [facility] [place] [address] Care Team Providers Care Lawn Mower Sharpener Name Role Phone Belia Villavicencio MD Primary Care Prov ider Reason for Referral * Imaging (Routine) - Pending Review Specialty Diagnoses / Procedures Referred By Moon hendrickson Referred To Contact Radiology Diagnoses Submandibular gland mass Procedures US Head Neck Soft Tissue Belia Villavicencio MD [address] [place] [address] Phone: tel: fax: [facility] 230 [facility] [address] [place] [address] Phone: tel: Referral ID Status Reason Start Date Expiration Date V isits Requested Visits Authorized [id number] Pending Review 03/28/2024 03/28/2025 1 1 Reason for Visit * Reason Comments Hypertension Follow-up Encounter Details Date Type Department Care Team ([facility] st Contact Info) Description 03/28/2024 2:30 PM EST Office Visit Adult Medicine [facility] [address] [place] [phone] Belia Villavicencio MD [address] [place] [address] Rheumatoid arthritis, involving unspecified site, unspecified whether [...] your loved ones. For example, director child abuse therapy or elderly care for an older adult? [...] CHIEF COMPLAINT: Hypertension and Follow-up IDENTIFIER: Marni Esetves is a 68 y.o. old female. HPI: [...] and anxiety. She is followed by the tech writer for her inflammatory dermatitis. 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 modifying [...] PM EDT Office Visit Adult Medicine - [address] [phone] Belia Villavicencio MD [address] [place] [address] documented as of this encounter Results * [...] Signed Date: 03/30/2024 13:21 ET Workstation ID: [id number] Transcribed By: Self Edit Transcribed Date: 03/30/2024 [...] Signed Date: 03/30/2024 13:21 ET Workstation ID: [id number] Transcribed By: Self Edit Transcribed Date: 03/30/2024 13:20 ET Belia Villavicencio MD IMG US PROCEDURES Final Result * (ABNORMAL) Iron and TIBC (03/28/2024 3:27 PM EST) Iron 151(H) 40 - 150 mcg/dL LAB CHEMISTRY METHOD 03/28/2024 6:28 PM EST [facility] TIBC 376 250 - 450 mcg/dL LAB CHEMISTRY METHOD 03/28/2024 6:28 PM EST [facility] Iron Saturation 40 15 - 50 % LAB CHEMISTRY METHOD 03/28/2024 6:28 PM EST [facility] Blood Venous blood specimen / Unknown Venipuncture / Unknown 03/28/2024 3:27 PM EST 03/28/2024 3:27 PM EST Belia Villavicencio MD LAB BLOOD ORDERABL ES Final Result [facility] [address] [place] [address], [place] [phone] * Thyroid stimulating hormone with reflex to free t4 and free t3 (03/28/2024 3:27 PM EST) TSH 1.42 0.40 - 4.00 mcIU/mL LAB CHEMISTRY METHOD 03/28/2024 6:38 PM EST [facility] Blood Venous blood specimen / Unknown Venipuncture / Unknown 03/28/2024 3:27 PM EST 03/28/2024 3:27 PM EST us Belia Villavicencio MD LAB BLOOD ORDERABL ES Final Result [facility] [address] [place] [address], documented in this encounter Visit Diagnoses Diagnosis Rheumatoid arthritis, involving unspecified site, unspecified whether rheumatoid factor present (CMS/[facility])- Primary Primary hypertension Unspecified essential [...] documented as of this encounter Care Teams Lawn Mower Sharpener Relationship Specialty Start Date End Date Belia Villavicencio MD [address] [place] [address] PCP - General Internal Medicine 01/17/24 documented as of this encounter
--- OUTSIDE RECORDS SUMMARY | 2024-04-25 13:04 | XMS_ITS | Encounter Summary ---
Author Organization [facility] [place] [address] Care Team Providers Care Science Instructor Name Role Phone Belia Villavicencio MD Primary Care Prov ider Reason for Visit * Reason Onset Date Comments Faxed Order Mammogram and Ultrasound 04/17/2024 Encounter Details Date Type Department Care Team ([facility] Contact Info) Description 04/17/2024 Telephone Adult Medicine - [place] [address] [place] [phone] Belia Villavicencio MD [address] [place] [address] Faxed Order Mammogram and Ultrasound Social History [...] your loved ones. For example, child care assistant or elderly care for an older [...] breast dx mammogram and ultrasound received from [facility], requesting signature from provider. Please sign and fax back to [phone]. Order in orange folder documented in this encounter Plan of Treatment Upcoming Encounters Date Type Department Care Team (Late st Contact Info) Description 09/29/2024 1:15 PM EDT Office Visit Adult Medicine - [place] [address] [place] [address] Belia Villavicencio MD [address] [place] [address] documented as of this encounter Visit Diagnoses Not on filedocumented in this encounter Additional Health Concerns Assessment Noted Time PHQ-9 Depression Total Score: 0 03/27/19 25 4:47 PM EST documented as of this encounter Care Teams Science Instructor Relationship Specialty Start Date End Date Belia Villavicencio MD [address] [place] [address] PCP - General Internal Medicine 01/17/24 documented as of this encounter
--- OUTSIDE RECORDS SUMMARY | 2024-04-25 13:04 | XMS_ITS | Encounter Summary ---
Author Organization [facility] [place] [address] Care Team Providers Care Scruff Worker Name Role Phone Belia Villavicencio MD Primary Care Prov ider Reason for Visit * Reason Comments Headache BARFIELD, face pressure, S T at night. Onset Wednesday Encounter Details Date Type Department Care Team (Late st Contact Info) Description 04/12/2024 3:30 PM EST Office Visit [facility] - [place] [address] [place] [address] Sue Williamson NP [address] [place], [place] [phone] Acute non-recurrent maxillary sinusitis (Primary Dx) Social [...] for your loved ones. For example, child and adolescent psychologist or elderly care for an older adult? [...] Radiculitis, lumbosacral 10/29/2009 Anemia 10/04/2009 Rheumatoid arthritis ([facility]/HCC) 10/04/2009 Hypercholesteremia 10/04/2009 Hypertension 10/04/2009 Hypothyroid 10/04/2009 [...] Reactions Hydralazine Cardiac Issue Severe chest pain Rejdlzr-Ylv-Lht Reductase Inhibitors Muscular Issues Gluten Itching and [...] Upcoming Encounters Date Type Department Care Team ([facility] Contact Info) Description 09/29/2024 1:15 PM EDT Office Visit Adult Medicine [address] [place] [address] Belia Villavicencio MD [address] [place], [place] documented as of this encounter Procedures Procedure Name Priority Date/Time Associated Diagnosis Comments POC INFLUENZA A/B Routine 04/13/2024 9:5 5 AM EST Acute non-recurrent maxillary sinusitis POC RAPID [id number], MOLECULAR Routine 04/13/2024 9:54 AM EST Acute non-recurrent maxillary sinusitis documented in this encounter Results * POC Influenza A/B manually resulted (04/13/2024 9:55 AM EST) Pathologist [facility] Rapid Influenza A AGN POC Negative Negative Rapid Influenza B AGN POC Negative Negative Swab 04/13/2024 9:55 AM EST Sue Williamson PAN DUMPER POINT OF CARE TEST ENTER/EDIT ORDERABLES Final Result * Poc Rapid [id number], MOLECULAR (04/13/2024 9:54 AM EST) Pathologist [facility] COVID-19/SARS- COV-2 Rapid POC Negative Negative Swab Nasopharyngeal structure / Unknown 04/13/2024 9:54 AM EST Sue Williamson PAN DUMPER POINT OF CARE TEST ENTER/EDIT ORDERABLES Final Result documented in this encounter Visit Diagnoses Diagnosis Acute non-recurrent maxillary sinusitis- Primary documented in this encounter Additional Health Concerns Assessment Noted Time PHQ-9 Depression Total Score: 0 03/27/19 25 4:47 PM EST documented as of this encounter Care Teams Scruff Worker Relationship Specialty Start Date End Date Belia Villavicencio MD [address] [place], [place] PCP - General Internal Medicine 01/17/24 documented as of this encounter
--- OUTSIDE RECORDS SUMMARY | 2024-04-25 13:04 | XMS_ITS | Clinical Summary ---
Author Organization [facility] Address [address] [place] [address] Care Team Providers Care Wire Inspector Name Role Phone Urvashi Paredes NP Primary Care Provider [phone] Allergies Active Allergy Reactions Criticality Noted Date [...] age to complete this topic Care Teams Wire Inspector Relationship Specialty Start Date End Date Urvashi Paredes, COMMERCIAL PHOTOGRAPHER [address] [place] [address] PCP - General Nurse Practitioner 08/10/20
--- OUTSIDE RECORDS SUMMARY | 2024-04-25 13:04 | XMS_ITS | Encounter Summary ---
Author [facility] [place] [address] Care Team Providers Care Tariff Supervisor Name Role Phone Belia Villavicencio MD Primary Care Prov ider Reason for Referral * Imaging (Routine) - Closed Specialty Diagnoses / Procedures Referred By Moon hendrickson Referred To Contact Radiology Diagnoses Chronic nonintractable headache, unspecified headache type Procedures CT Head wo Contrast Belia Villavicencio MD [address] [place] [address] Phone: tel: fax: CT Scan [address] Phone: tel: fax: Referral ID Status Reason Start Date Expiration Date Visits Re quested Visits Authorized [id number] Closed 04/13/2024 04/13/2025 1 1 Reason for Visit * Imaging (Routine) - Closed Specialty Diagnoses / Procedures Referred By Moon hendrickson Referred To Contact Radiology Diagnoses Chronic nonintractable headache, unspecified headache type Procedures CT Head wo Contrast Belia Villavicencio MD [address] [place] [address] Phone: tel: fax: CT Scan - [place] [address] [place], [place] Phone: tel: fax: Referral ID Status Reason Start Date Expiration Date Visits Re quested Visits Authorized [id number] Closed 04/13/2024 04/13/2025 1 1 Encounter Details Date Type Department Care Team (Latest Contact Info) Description 04/18/2024 11:18 AM EST - 04/18/2024 11:59 PM EST Hospital Encounter CT Scan - [place] [address] [place], [place] [phone] Chronic nonintractable headache, unspecified headache type Discharge [...] for your loved ones. For example, rn maternal child or elderly care for an older [...] 1:15 PM EDT Office Visit Adult Medicine [address] [phone] Belia Villavicencio MD [address] [place] [address] documented as of this encounter Procedures Procedure [...] Signed Date: 04/18/2024 12:21 ET Workstation ID: [id number] Transcribed By: Self Edit Transcribed Date: 04/18/2024 [...] Signed Date: 04/18/2024 12:21 ET Workstation ID: [id number] Transcribed By: Self Edit Transcribed Date: 04/18/2024 11:58 ET Belia Villavicencio MD IMG CT PROCEDURES Final Result documented in this encounter Visit Diagnoses Diagnosis Chronic nonintractable headache, unspecified headache type documented in this encounter Additional Health Concerns Assessment Noted Time PHQ-9 Depression Total Score: 0 03/27/19 25 4:47 PM EST documented as of this encounter Care Teams Tariff Supervisor Relationship Specialty Start Date End Date Belia Villavicencio MD [address] [place] [address] PCP - General Internal Medicine 01/17/24 documented as of this encounter
--- OUTSIDE RECORDS SUMMARY | 2024-04-25 13:04 | XMS_ITS | Encounter Summary ---
Author Organization [facility] [place] [address] Care Team Providers Care Manager Bench Name Role Phone Belia Villavicencio MD Primary Care Prov ider Reason for Visit * Reason Onset Date Comments Return Call From Center/Facility 04/24/2024 Encounter Details Date Type Department Care Team ([facility] st Contact Info) Description 04/24/2024 Telephone Adult Medicine [facility] [address] [place] [phone] Belia Villavicencio MD [address] [place] [address] Return Call From Center/Facility Social History Tobacco [...] your loved ones. For example, child adolescent care or elderly care for an older adult? [...] from today. 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 from ASPHALT SPREADER OPERATOR and states she called therapist radiation and advised her to stop taking Atenolol to see if theres any changes documented in this encounter Plan of Treatment Upcoming Encounters Date Type Department Care Team (Late st Contact Info) Description 09/29/2024 1:15 PM EDT Office Visit Adult Medicine - [place] [address] [place] [address] Belia Villavicencio MD [address] [place] [address] documented as of this encounter Visit Diagnoses Not on filedocumented in this encounter Additional Health Concerns Assessment Noted Time PHQ-9 Depression Total Score: 0 03/27/19 4:47 PM EST documented as of this encounter Care Teams Manager Bench Relationship Specialty Start Date End Date Belia Villavicencio MD [address] [place] [address] PCP - General Internal Medicine 01/17/24 documented as of this encounter
--- OUTSIDE RECORDS SUMMARY | 2024-04-25 13:04 | XMS_ITS | Clinical Summary ---
Author Organization [facility] Address [address] [place] [address] Phone Care Team Providers Care Enterprise Software Developer Name Role Phone Belia Villavicencio MD Primary Care Prov ider Allergies Active Allergy Reactions Criticality Noted Date Comments Gluten Itching,GI intolerance 01/03/2024 Hydralazine Cardiac Issue High 02/16/2024 Severe chest pain Bkymdaz-Fav-Him Reductase Inhibitors Muscular Issues High 01/08/2023 Sulfa [...] engaged with Dr. Reeves of rheumatology at [facility] 03/30/2022 Positive DAREN (antinuclear antibody) 06/18/2021 Obesity [...] Team Description 04/24/2024 Telephone Adult Medicine - [place] [address] [place] [address] Belia Villavicencio MD Return Call From Center/Facility 04/24/2024 Telephone [facility] [address] [place] [address] Olivia Montano NP 04/24/2024 Nurse Triage Adult Medicine - [place] [address] [place] [phone] Belia Villavicencio MD Bradycardia 04/18/2024 11:18 AM EST - 04/18/2024 11:59 PM EST Hospital Encounter CT Scan - [address] [phone] Chronic nonintractable headache, unspecified headache type Discharge Disposition: Home or Self Care 04/17/2024 Telephone Adult [address] [phone] Belia Villavicencio MD Faxed Order Mammogram and Ultrasound 04/12/2024 3:30 PM EST Office Visit [facility] [place] [address] [place] [address] Sue Williamson NP Acute non-recurrent maxillary sinusitis (Primary Dx) 03/30/2024 12:29 PM EST - 03/30/2024 11:59 PM EST Hospital Encounter Radiology Department - [address] [phone] Submandibular gland mass Discharge Disposition: Home or Self Care 03/28/2024 2:30 PM EST Office Visit Adult [address] [phone] Belia Villavicencio MD Rheumatoid arthritis, involving unspecified site, unspecified whether rheumatoid factor present ([facility]) (Primary Dx); Primary hypertension; Celiac disease; Iron deficiency; Hypothyroidism, unspecified type; Submandibular gland mass; Rash 03/27/2024 1:30 PM EST Telemedicine Adult [address] [address] Medicare annual wellness visit, subsequent (Primary Dx) 03/27/2024 Telephone Adult [address] [address] Mary Devries [place] Medicare Annual Wellness Visit Subsequent (AWV DUE 2024) 03/16/[address] [address] Belia Villavicencio MD Blood work; Labs Only 02/24/2024 9:20 AM EST Office Visit Gastroenterology - [place] [address] [place] [phone] Sylvain Laws PA Celiac sprue (Primary Dx); History of repair of hiatal hernia; H/O chest pain; Gastroesophageal reflux disease with esophagitis without hemorrhage; Fatty liver; Bacterial infection due to H. pylori 02/17/2024 Telephone Pulmonology - [place] [address] [facility] [address] [place] [phone] Mojgan Vanegas [place] 02/16/2024 10:30 AM EST Office Visit Thoracic Surgery - [place] [address] [phone] Srinath Ibarra PA Incarcerated paraesophageal hernia (Primary Dx) 02/16/2024 7:23 AM EST - 02/16/2024 11:59 PM EST Hospital Encounter [facility] Xray [address] [place] [phone] Diaphragmatic hernia with obstruction, without gangrene Discharge Disposition: Home or Self Care 02/14/2024 3:30 PM EST Office Visit Adult Medicine [facility] [address] [place] [address] Belia Villavicencio MD Allergic drug rash due to non-narcotic analgesic (Primary Dx); Angioedema, subsequent encounter; Gastroesophageal reflux disease without esophagitis; Palpitations; Diarrhea, unspecified type 02/08/2024 11:38 PM EST - 02/09/2024 7:[address] [facility] Emergency [address] [place] [phone] Jeremiah Kaur MD Other chest pain (Primary Dx); Chest wall pain Discharge Disposition: Home or Self Care 01/31/2024 1:00 PM EST Office Visit Thoracic Surgery [facility] [address] [phone] Srinath Ibarra PA Incarcerated paraesophageal hernia (Primary Dx) 01/31/2024 Telephone Adult [facility] [address] [place] [phone] Belia Villavicencio MD Medication Problem 01/26/2024 Telephone [facility] - [facility] [address] [facility] [address] [place] [address] Srinath Mercado MD hernia surgery [...] for your loved ones. For example, child monitor or elderly care for an older adult? [...] PM EDT Office Visit Adult Medicine - [place] [address] [place] [address] Belia Villavicencio MD [address] [place] [address] Health Maintenance Due Date Last Done Comments [...] this topic Medical Devices Implanted Type Area Separator Tender Device Identifier Shelf Expiration Date Model / Serial / Lot Sealant Fibrin Vistaseal 10ml - [id number] - [id number] Implanted:Qty: 1 on 01/18/2024 by Emily Ho MD at [facility] Hemostasis N/A: Abdomen [employer] [id number] 09/13/2025 [id number] / [id number] / [id number] Tissue Ovitex 1s Perm 6x10cm - [facility] - [id number] Implanted:Qty: 1 on 01/18/2024 by Emily Ho MD at [facility] Surgical Mesh Sling Implants N/A: Abdomen [employer] [id number] 07/05/2025 [id number] / NA / [id number] 1 Procedures Procedure Name Priority Date/Time Associated Diagnosis Comments CT HEAD WO CONTRAST Routine 04/18/2024 1 1:40 AM EST Chronic nonintractable headache, unspecified headache type POC INFLUENZA A/B Routine 04/13/2024 9:5 5 AM EST Acute non-recurrent maxillary sinusitis POC RAPID [id number], MOLECULAR Routine 04/13/2024 9:54 AM EST Acute [...] Signed Date: 04/18/2024 12:21 ET Workstation ID: [id number] Transcribed By: Self Edit Transcribed Date: 04/18/2024 [...] Signed Date: 04/18/2024 12:21 ET Workstation ID: [id number] Transcribed By: Self Edit Transcribed Date: 04/18/2024 11:58 ET us Belia Villavicencio MD IM CT PROCEDURES Final Result * POC Influenza A/B manually resulted (04/13/2024 9:55 AM EST) Rapid Influenza A AGN POC Negative Negative Rapid Influenza B AGN POC Negative Negative Swab 04/13/2024 9:55 AM EST us Sue Williamson NP POINT OF CARE TEST ENTER/EDIT ORDERABLES Final Result * Poc Rapid [id number], MOLECULAR (04/13/2024 9:54 AM EST) COVID-19/SARS- COV-2 Rapid POC Negative Negative Swab Nasopharyngeal structure / Unknown 04/13/2024 9:54 AM EST us Sue Williamson KINDERGARTEN PREP TEACHER POINT OF CARE TEST ENTER/EDIT ORDERABLES Final [...] Signed Date: 03/30/2024 13:21 ET Workstation ID: [id number] Transcribed By: Self Edit Transcribed Date: 03/30/2024 [...] Signed Date: 03/30/2024 13:21 ET Workstation ID: [id number] Transcribed By: Self Edit Transcribed Date: 03/30/2024 13:20 ET Belia Villavicencio MD IMG US PROCEDURES Final Result * Thyroid stimulating hormone with reflex to free t4 and free t3 (03/28/2024 3:27 PM EST) TSH 1.42 0.40 - 4.00 mcIU/mL LAB CHEMISTRY METHOD 03/28/2024 6:38 PM EST [facility] Blood Venous blood specimen / Unknown Venipuncture / Unknown 03/28/2024 3:27 PM EST 03/28/2024 3:27 PM EST Belia Villavicencio MD LAB BLOOD ORDERABL ES Final Result [facility] [address] [place] [address], * (ABNORMAL) Iron and TIBC (03/28/2024 3:27 PM EST) Iron 151(H) 40 - 150 mcg/dL LAB CHEMISTRY METHOD 03/28/2024 6:28 PM EST [facility] TIBC 376 250 - 450 mcg/dL LAB CHEMISTRY METHOD 03/28/2024 6:28 PM EST [facility] Iron Saturation 40 15 - 50 % LAB CHEMISTRY METHOD 03/28/2024 6:28 PM EST [facility] Blood Venous blood specimen / Unknown Venipuncture / Unknown 03/28/2024 3:27 PM EST 03/28/2024 3:27 PM EST Belia Villavicencio MD LAB BLOOD ORDERABL ES Final Result Performing Organization Address [facility]/ZIP Co de Phone Number [facility] [address] [place] [address], [place] [phone] * Helicobacter pylori breath test (03/28/2024 3:27 PM EST) H Pylori Breath Test Negative Negative LAB CHEMISTRY METHOD 03/29/2024 11:27 AM EST [facility] Breath Oral cavity structure / Unknown Non-blood Collection / Unknown 03/28/2024 3:27 PM EST 03/28/2024 3:27 PM EST Sylvain DAILY LAB BODY FLUIDS AND STOOLS LUIS FERNANDO DANIEL Final Result Performing Organization Address [facility]/ZIP Co de Phone Number [facility] [address] [place] [address], [place] [phone] * XR Esophagram (02/16/2024 8:20 AM EST) [...] Signed Date: 02/16/2024 11:15 ET Workstation ID: [id number] Transcribed By: Self Edit Transcribed Date: 02/16/2024 10:59 ET Resident/PA/KINDERGARTEN PREP TEACHER: Nona Kapadia Narrative 02/16/2024 11:15 AM EST FINDINGS: Double contrast esophagram performed. COMPARISON: Esophagram January 19, 2024 HISTORY: Patient is a 68-year-old female one month status post hiatal hernia repair. Real Time Analyst radiographs: 1 view chest radiograph demonstrates cardiac [...] female one month status post hiatalhernia repair. Real Time Analyst radiographs: 1 view chest radiograph demonstrates cardiac [...] Signed Date: 02/16/2024 11:15 ET Workstation ID: [id number] Transcribed By: Self Edit Transcribed Date: 02/16/2024 10:59 ET Resident/PA/KINDERGARTEN PREP TEACHER: Nona Kapadia us Emily Ho MD IMG FLUOROSCOPY PROCEDURES Final Result * ECG 12 lead (02/09/2024 2:06 AM EST) Pathologist [facility] Ventricular Rate ECG 85 BPM GEMUSE Atrial Rate 85 BPM GEMUSE P-R Interval 236 ms GEMUSE QRS Duration 84 ms GEMUSE Q-T Interval 394 ms GEMUSE QTc 468 ms GEMUSE P Wave [place] 23 degrees GEMUSE R [place] 29 degrees GEMUSE T [place] 9 degrees GEMUSE ECG Interpretation Sinus rhythm with 1st degree A-V block Otherwise normal ECG When compared with ECG of 11-JAN-2024 10:10, [place] interval has increased Vent. rate has increased BY ??28 BPM Confirmed by BONITA BACH ([id number]) on 02/09/2024 9:40:31 AM GEMUSE 02/09/2024 2:06 AM EST 02/09/2024 9:40 AM EST us Jeremiah Kaur MD ECG ORDERABLES Final Result GEMUSE * Troponin I high sensitivity (02/09/2024 2:00 AM EST) Only the most recent of2 resultswithin the time period is included. [facility] High Sensitivity Troponin I 15 <=54 ng/L LAB CHEMISTRY METHOD 02/09/2024 2:35 AM EST [facility] Blood Venous blood specimen / Unknown Venipuncture / Unknown 02/09/2024 2:00 AM EST 02/09/2024 2:13 AM EST Narrative [facility] - 02/09/2024 2:35 AM EST High levels of biotin in samples may falsely decrease hsTroponin values. ??Use caution when interpreting hsTroponin results in patients taking biotin who exhibit renal impairment (eGFR <60) or in patients taking more than 20 mg/day of biotin. us Jeremiah Kaur MD LAB BLOOD ORDERABLES Final Resu Performing Organization Address [facility] de Phone Number [facility] [address] [place] [address], [place] [phone] * (ABNORMAL) D-dimer, quantitative (02/09/2024 2:00 AM EST) D-Dimer, Quant (D-DU) 673(H) <=230 ng/mL DDU LAB COAGULATION METHOD 02/09/2024 2:31 AM EST [facility] Blood Venous blood specimen / Unknown Venipuncture / Unknown 02/09/2024 2:00 AM EST 02/09/2024 2:13 AM EST Narrative [facility] - 02/09/2024 2:31 AM [...] BLOOD ORDERABLES Final Resu Performing Organization Address [facility] de Phone Number [facility] [address] [place] [address], [place] [phone] * CT Angio Chest/Abdomen/Pelvis wo and/or w [...] by: Wilder Camilo DO on 02/09/2024 02:11:47 [facility] Aubrey Kaur MD IM CT PROCEDURES Edited Result - [...] 12:26 AM [facility] Basophils Absolute 0.08 0.00 - 0.20 K/mcL LAB HEMETOLOGY METHOD 02/09/2024 12:26 AM [facility] Immature Granulocytes Absolute 0.04(H) 0.00 - 0.03 K/mcL LAB HEMETOLOGY METHOD 02/09/2024 12:26 AM [facility] Blood Venous blood specimen / Unknown Venipuncture / Unknown 02/08/2024 11:50 PM EST 02/09/2024 12:15 AM EST us Jeremiah Kaur MD LAB BLOOD ORDERABLES Final Resu lt [facility] [address] [place] [address], * B-type natriuretic peptide (02/08/2024 11:50 PM EST) BNP 63 <=100 pcg/mL LAB CHEMISTRY METHOD 02/09/2024 12:54 AM EST [facility] Blood Venous blood specimen / Unknown Venipuncture / Unknown 02/08/2024 11:50 PM EST 02/09/2024 12:15 AM EST us Jeremiah Kaur MD LAB BLOOD ORDERABLES Final Resu lt Performing Organization Address [facility]/ZIP Co de Phone Number [facility] [address] [place] [address], [place] [phone] * (ABNORMAL) Magnesium (02/08/2024 11:50 PM EST) Magnesium 1.7(L) 1.9 - 2.6 mg/dL LAB CHEMISTRY METHOD 02/09/2024 12:47 AM EST [facility] Blood Venous blood specimen / Unknown Venipuncture / Unknown 02/08/2024 11:50 PM EST 02/09/2024 12:15 AM EST us Jeremiah Kaur MD LAB BLOOD ORDERABLES Final Resu lt Performing Organization Address [facility] Co de Phone Number [facility] [address] [place] [address], [place] [phone] * Lipase (02/08/2024 11:50 PM EST) Lipase 26 13 - 75 unit/L LAB CHEMISTRY METHOD 02/09/2024 12:47 AM EST [facility] Blood Venous blood specimen / Unknown Venipuncture / Unknown 02/08/2024 11:50 PM EST 02/09/2024 12:15 AM EST us Jeremiah Kaur MD LAB BLOOD ORDERABLES Final Resu lt Performing Organization Address [facility]/ZIP Co de Phone Number [facility] [address] [place] [address], [place] [phone] * (ABNORMAL) Comprehensive metabolic panel (02/08/2024 11:50 PM EST) [facility] Sodium 136 133 - 145 mmol/L LAB [...] LAB CHEMISTRY METHOD 02/09/2024 12:47 AM EST [facility] Total Protein 7.2 6.0 - 8.0 g/dL LAB CHEMISTRY METHOD 02/09/2024 12:47 AM EST [facility] Albumin 3.7 3.2 - 5.0 g/dL LAB CHEMISTRY METHOD 02/09/2024 12:47 AM EST [facility] Total Bilirubin 0.2 0.0 - 1.4 mg/dL LAB CHEMISTRY METHOD 02/09/2024 12:47 AM EST [facility] Blood Venous blood specimen / Unknown Venipuncture / Unknown 02/08/2024 11:50 PM EST 02/09/2024 12:15 AM EST us [facility] Aubrey Kaur MD LAB BLOOD ORDERABLES Final Resu lt [facility] [address] [place] [address], * ECG-Outside (02/08/2024) us Provider Onbase ECG [...] classified as having normal bone density. [facility] Department of Internal Medicine recommends using [...] classified as having normal bone density. 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
--- OUTSIDE RECORDS SUMMARY | 2024-04-25 13:04 | XMS_ITS | Encounter Summary ---
Author Organization [facility] [place] [address] Care Team Providers Care Nail Maker Name Role Phone Belia Villavicencio MD Primary Care Prov ider Reason for Visit * Reason Onset Date Comments Medicare Annual Wellness Visit Subsequent 2024 AWV DUE 2024 Encounter Details Date Type Department Care Team (Late st Contact Info) Description 03/27/2024 Telephone Adult Medicine - [place] [address] [place] [phone] Mary Devries [place] Medicare Annual Wellness Visit [...] for your loved ones. For example, child watch attendant or elderly care for an older [...] the following message in the appt, (call [phone]/TAC.) Changed Length from 15 to 30. Changed Arrival Time from 1:30 pm to 1:15 pm. PT is on the December/2023 report. documented in this encounter Plan of Treatment Upcoming Encounters Date Type Department Care Team (Late st Contact Info) Description 09/29/2024 1:15 PM EDT Office Visit Adult Medicine - [place] [address] [place] [address] Belia Villavicencio MD [address] [place] [address] documented as of this encounter Visit Diagnoses Not on filedocumented in this encounter Additional Health Concerns Assessment Noted Time PHQ-9 Depression Total Score: 0 03/27/19 4:47 PM EST documented as of this encounter Care Teams Nail Maker Relationship Specialty Start Date End Date Belia Villavicencio MD [address] [place] [address] PCP - General Internal Medicine 01/17/24 documented as of this encounter
--- OUTSIDE RECORDS SUMMARY | 2024-04-25 13:04 | XMS_ITS | Encounter Summary ---
Author Organization [facility] [place] [address] Care Team Providers Care Ply Cutter Name Role Phone Belia Villavicencio MD Primary Care Prov ider Reason for Referral * Imaging (Routine) - Pending Review Specialty Diagnoses / Procedures Referred By Moon hendrickson Referred To Contact Radiology Diagnoses Submandibular gland mass Procedures US Head Neck Soft Tissue Belia Villavicencio MD [address] [place], [place] Phone: tel: fax: [facility] 230 [facility] [address] [place] [address] Phone: tel: Referral ID Status Reason Start Date Expiration Date V isits Requested Visits Authorized [id number] Pending Review 03/28/2024 03/28/2025 1 1 Reason for Visit * Imaging (Routine) - Pending Review Specialty Diagnoses / Procedures Referred By Moon hendrickson Referred To Contact Radiology Diagnoses Submandibular gland mass Procedures US Head Neck Soft Tissue Belia Villavicencio MD [address] [place], [place] Phone: tel: fax: [facility] [address] [facility] [address] [place] [address] Phone: tel: Referral ID Status Reason Start Date Expiration Date V isits Requested Visits Authorized [id number] Pending Review 03/28/2024 03/28/2025 1 1 Encounter Details Date Type Department Care Team (Latest Contact Info) Description 03/30/2024 12:29 PM EST - 03/30/2024 11:59 PM EST Hospital Encounter Radiology Department - [address] [address] Submandibular gland mass Discharge Disposition: Home or [...] loved ones. For example, early childhood education specialist or elderly care for an older [...] 1:15 PM EDT Office Visit Adult Medicine [facility] [address] [place] [address] Belia Villavicencio MD [address] [place] [address] documented as of this encounter Procedures Procedure [...] Signed Date: 03/30/2024 13:21 ET Workstation ID: [id number] Transcribed By: Self Edit Transcribed Date: 03/30/2024 [...] Signed Date: 03/30/2024 13:21 ET Workstation ID: [id number] Transcribed By: Self Edit Transcribed Date: 03/30/2024 13:20 ET us Belia Villavicencio MD IMG US PROCEDURES Final Result documented in this encounter Visit Diagnoses Diagnosis Submandibular gland mass documented in this encounter Additional Health Concerns Assessment Noted Time PHQ-9 Depression Total Score: 0 03/27/19 25 4:47 PM EST documented as of this encounter Care Teams Ply Cutter Relationship Specialty Start Date End Date Belia Villavicencio MD [address] [place] [address] PCP - General Internal Medicine 01/17/24 documented as of this encounter
--- OUTSIDE RECORDS SUMMARY | 2024-04-25 13:04 | XMS_ITS | Encounter Summary ---
Author Organization [facility] [place] [address] Care Team Providers Care Geoint Analyst Name Role Phone Belia Villavicencio MD Primary Care Prov ider Reason for Visit * Reason Onset Date Comments Bradycardia 04/24/2024 Encounter Details Date Type Department Care Team ([facility] Contact Info) Description 04/24/2024 Nurse Triage Adult Medicine - [place] [address] [place] [phone] Belia Villavicencio MD [address] [place] [address] Bradycardia Social History Tobacco Use Types Packs/Day [...] for your loved ones. For example, children's aide or elderly care for an older adult? [...] rate. I will have her call her digital analytics manager before she stops taking the atenolol * [...] No Protocols used: Heart Rate and Heartbeat [id number] * Emma Hallman - 04/24/2024 10:41 AM [...] traveled recently to another state outside of [place], [place], [place], [place], [place], [place], [place]? NO [...] vehicle accident? NO If yes, gather 3rd alliance party insurance information Date of accident/Injury: n/a How long has patient had these symptoms?: 3 days PCP: Dr Gutierrez Payor: [facility] documented in this encounter Plan of Treatment Upcoming Encounters Date Type Department Care Team (Late st Contact Info) Description 09/29/2024 1:15 PM EDT Office Visit Adult Medicine - [place] [address] [place] [address] Belia Villavicencio MD [address] [place] [address] documented as of this encounter Visit Diagnoses Not on filedocumented in this encounter Additional Health Concerns Assessment Noted Time PHQ-9 Depression Total Score: 0 03/27/19 4:47 PM EST documented as of this encounter Care Teams Geoint Analyst Relationship Specialty Start Date End Date Belia Villavicencio MD [address] [place] [address] PCP - General Internal Medicine 01/17/24 documented as of this encounter
--- NOTE | 2024-04-27 12:28 | MHC.SHP ---
Pre-Procedural Eval Section A - 24 Hr Update-Section A only Date of Service: 04/28/24 The patient is an INPATIENT: No Changes since office visit: No Cold of Flu in the past 2 weeks, No New Medical Problems, No Changes in Medication and No Patient answered all questions Section B - Complete if H&P > 30 days Chief Complaint: Polymyalgia rheumatica,Other giant cell arteritis Allergies: Allergies Allergy/AdvReac Type Severity Reaction Status Date / Time hydralazine Allergy Severe Shortness Verified 04/25/24 08:39 of Breath Sulfa (Sulfonamide Allergy Intermediate Rash Verified 04/25/24 08:39 Antibiotics) sulfamethoxazole Allergy Intermediate Rash Verified 04/25/24 08:39 [From Bactrim] trimethoprim [From Bactrim] Allergy Intermediate Rash Verified 04/25/24 08:39 rosuvastatin AdvReac Severe Joint Pain Verified 04/25/24 08:39 Review of Systems Sugical H&P ROS: Negative: Constitution, Cardiovascular, Respiratory, Neurological, Psychiatric, Hem-Onc, Allergic/Immunologic, Gastrointestinal, Genitourinary, Musculoskeletal, Integumentary, Endocrine and Eyes/Ears/Nose/Throat Exam Surgical H&P Exam: Normal: HEENT, Normal: Heart, Normal: Lungs, Normal: Extremities, Normal: Abdomen, Normal: Skin and Normal: Neurological Plan I have reviewed the history and physical and performed a pertinent physical examination on my patient. No changes have occurred unless specified. Time Spent With Patient Time: Total time managing care of this patient today ____ minutes.
[2024-04-28 08:47] VITALS: BMI 29.8
[2024-04-28 09:05] VITALS: BP 174/79; PULSE 59; RESP 16; TEMP 36.2; O2SAT 98
[2024-04-28] MEDS: Lactated Ringers 1,000 ML 80 ML IVCONT (09:22)
--- NOTE | 2024-04-28 11:13 | W.PM.OPN ---
Operative Note Operative Note Date of Service: 04/28/24 Narrative: Preoperative diagnosis: [] Evaluate for giant cell arteritis Postop diagnosis: [] The same Procedure [] right temporal artery biopsy Surgeon: [] [employer] Analyst: [] Type of Anesthesia: [] Mac Indication for surgery: [] Uneventful right temporal artery biopsy. Specimen sent per pathology recommendation in formalin. Findings: [] Patient brought to the operating room, placed on operative table supine position, after an adequate level of MAC anesthesia was induced, the right temporal area was prepped and draped in usual sterile fashion. Using a small longitudinal incision over the palpable pulse in the right temporal area , this carried down through skin subcutaneous tissue, and cervical fascia. Temporal artery and vein were identified. Temporal artery was encircled, clamped proximally and distally, transected and specimen sent to pathology. Each clamped end was tied using 3-0 silk ties. Wound was irrigated, secured hemostasis, and closed using interrupted inverted dermal 3-0 Vicryl sutures followed by Steri-Strips and sterile dressings. Wound was infiltrated the beginning at the end with 0.5% Marcaine/1% lidocaine. Sponge, needle, and instrument counts reported correct. Patient tolerated the procedure well and emerged from anesthesia stable condition. EBL minimal
[2024-04-28 11:17] VITALS: BP 124/63; PULSE 49; RESP 16; TEMP 36.3; O2SAT 97
[2024-04-28 11:22] VITALS: BP 134/63; PULSE 47; RESP 16; O2SAT 97
[2024-04-28 11:27] VITALS: BP 122/62; PULSE 47; RESP 16; O2SAT 97
[2024-04-28 11:32] VITALS: BP 141/67; PULSE 46; RESP 18; O2SAT 97
[2024-04-28 11:47] VITALS: BP 145/86; PULSE 77; RESP 18; TEMP 36.3; O2SAT 97
== END 2024-04-28 12:19 | disposition home or self-care (01) ==
PROVIDERS: PCP Internal Medicine; Visit Provider Surgery
PROC: (CPT 37609; principal; 2024-04-28 10:30)
DX: M35.3 Polymyalgia rheumatica (principal); I77.89 Other specified disorders of arteries and arterioles; R76.8 Other specified abnormal immunological findings in serum; R51.9 Headache, unspecified; R20.2 Paresthesia of skin; I10 Essential (primary) hypertension; D64.9 Anemia, unspecified; E03.9 Hypothyroidism, unspecified; R42 Dizziness and giddiness; F41.9 Anxiety disorder, unspecified; Z79.52 Long term (current) use of systemic steroids; Z79.899 Other long term (current) drug therapy; Z88.2 Allergy status to sulfonamides; Z88.8 Allergy status to other drugs, medicaments and biological substances; Z87.891 Personal history of nicotine dependence
CPT/HCPCS: 37609; 88305; J0690; J2003; J2704

== ENCOUNTER → 2024-04-28 08:26 | Outpatient (BNV) | payer OTHER, SELFPAY | PROVIDERS: PCP Internal Medicine; Visit Provider Surgery | DX: M31.6 Other giant cell arteritis (principal) | CPT/HCPCS: 37609 ==

== ENCOUNTER 2024-05-09 09:30 | Outpatient (AMB) | payer OTHER, SELFPAY ==
--- NOTE | 2024-05-09 09:33 | MHC.OFFVIS ---
Intake Visit Reasons: S/P Rt. temporal artery bx Intake Note: Patient here s/p right temporal artery biopsy. Reports incision healing well, Patient c/o: no concerns. Surgery: 04-28-2024 Supervisor Tank Cleaning Required: No Accompanied by: Spouse Allergies hydralazine Allergy (Severe, Verified 05/09/24 09:43) Shortness of Breath Sulfa (Sulfonamide Antibiotics) Allergy (Intermediate, Verified 05/09/24 09:43) Rash sulfamethoxazole [From Bactrim] Allergy (Intermediate, Verified 05/09/24 09:43) Rash trimethoprim [From Bactrim] Allergy (Intermediate, Verified 05/09/24 09:43) Rash rosuvastatin Adverse Reaction (Severe, Verified 05/09/24 09:43) Joint Pain HPI Comments Details: Patient presents with her for follow-up status post right temporal artery biopsy. She has no wound issues or complaints. Pathology was reviewed. 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 Paresthesias Vertigo HTN (hypertension) Arthritis Anemia Hypothyroidism Vertigo Anxiety Back pain Surgical History (Updated 05/09/24 @ 09:50 by Erasmo Brothers MD) Hx of cholecystectomy H/O: hysterectomy Giant cell arteritis H/O esophageal hernia repair Family History Brother Liver disease Cancer Sister Stroke Diabetes Sister Cancer Rheumatoid arthritis Sister Vitiligo Rheumatoid arthritis Daughter Vitiligo Social History Household Members: Spouse Housing: House Are you a primary clinical manager home care to a significant other at home: No Do you presently have visiting nurse or other home services: No 75 years or older and lives alone: No Alcohol intake: current Alcohol intake frequency: former alcohol drinker Alcohol type: wine Patient Tobacco Use Status: Former Tobacco user Years Smoked: Quit 25 years ago e-Cigarette/Vaping Use: Never Used service: No Current occupational status: retired Physical Exam HEENT Other: Incision clean dry and intact healing well Assessment & Plan Assessment & Plan (1) Visit for wound check: Code(s): Z51.89 - Encounter for other specified aftercare Category: Surgical Plan From a surgical perspective, patient will otherwise follow-up p.r.n.. She has been given local wound instructions. He is also scheduled to follow up with a surveyor helper rod. All questions answered. Coding Level of Care Code Global (75340) Diagnoses Visit for wound check Z51.89
--- OUTSIDE RECORDS SUMMARY | 2024-05-09 10:38 | XMS_ITS | Encounter Summary ---
Author Organization [facility] [place] [address] Care Team Providers Care Fuel Attendant Name Role Phone Belia Villavicencio MD Primary Care Prov ider Reason for Visit * Reason Comments Hypertension High reading on the 200's highest reading 215/90 Encounter Details Date Type Department Care Team (Late st Contact Info) Description 05/05/2024 10:30 AM EST Office Visit Adult Medicine - [address] [phone] Belia Villavicencio MD [address] [place] [address] Primary hypertension (Primary Dx); Giant cell arteritis with polymyalgia rheumatica (CMS/HCC); Panic disorder (episodic paroxysmal anxiety) Social History Tobacco Use Types Packs/Day Years [...] Sign Reading Time Taken Comments Blood Pressure 195/93 05/05/2024 10:30 AM EST Pulse 54 05/05/2024 10:30 AM EST Temperature 36.3 ??C (97.3 ??F) 05/05/2024 10:[address] Respiratory Rate - - Oxygen Saturation - - Inhaled Oxygen Concentration - - Weight 76.7 kg (169 lb) 05/05/2024 10:30 AM EST Height 158.8 cm (5' 2.5 ) 05/05/2024 10:30 AM ES T Body Mass Index 30.42 05/05/2024 10:30 AM EST documented in this encounter Ordered Prescriptions Prescription Sig Dispense Quantity Refills Last Filled Start Date End Date clonazePAM (KlonoPIN) 0.5 mg tabletIndications: Panic disorder (episodic paroxysmal anxiety) Take 1 tablet (0.5 mg total) by mouth 3 (three) times a day. Max Daily Amount: 1.5 mg 90 tablet 2 05/05/2024 lisinopriL (PRINIVIL,ZESTRIL) 5 mg tablet Take 1 tablet (5 mg total) by mouth 1 (one) time each day. 30 each 5 05/05/2024 05/05/2025 documented in this encounter Progress Notes * Belia Villavicencio MD - 05/05/2024 10:30 AM EST Caltrate daily * Belia Villavicencio MD - 05/05/2024 10:30 AM EST CHIEF COMPLAINT: Hypertension (High reading on the 200's highest reading 215/90) IDENTIFIER: Marni Esteves is a 68 y.o. old female. HPI: 68-year-old lady presents for evaluation of her blood pressure. Patient was on atenolol but her heart rate was low. She was symptomatic so called cardiology who told her to stop the atenolol. However since then she has noticed an increase in her blood pressure .she is asymptomatic but this is making her very nervous she has severe anxiety disorder for which she is on benzodiazepine She said that she did see the handy worker who did a biopsy did not see any temporal arteritis but they still feel that she has giant cell arthritis and they are doing further studies She has been on prednisone. she says she feels well on the prednisone. her headache is resolved her GI issues which were mainly allergic reactions to food has improved domestically and she has been able to lose weight She has started a tapering dose of the prednisone ROS: See HPI PAST MEDICAL HISTORY: Patient Active Problem List Diagnosis Date Noted Celiac disease 03/28/2024 GERD (gastroesophageal reflux disease) 12/27/2023 Incarcerated paraesophageal hernia 12/27/2023 Giant cell arteritis with polymyalgia rheumatica ([facility]/HCC) 12/29/2022 Palpitations 03/30/2022 Positive DAREN (antinuclear antibody) [...] Outpatient Medications Marked as Taking for the 05/05/24 encounter (Office Visit) with Belia Villavicencio MD Medication Sig Dispense Refill atenoloL (TENORMIN) 25 mg tablet Take 0.5 tablets (12.5 mg total) by mouth 1 (one) time each day. cetirizine (ZyrTEC) 10 mg tablet Take 1 tablet (10 mg total) by mouth 1 (one) time each day if needed for allergies. clonazePAM (KlonoPIN) 0.5 mg tablet Take 1 tablet (0.5 mg total) by mouth 3 (three) times a day. Max Daily Amount: 1.5 mg 90 tablet 2 ferrous sulfate 325 mg (65 mg elemental iron) tablet TAKE 1 TABLET BY MOUTH EVERY DAY 90 tablet 1 levothyroxine (SYNTHROID, LEVOTHROID) 100 mcg tablet Take 1 tablet (100 mcg total) by mouth 1 (one)time each day before breakfast. 90 tablet 0 spironolactone (Aldactone) 50 mg tablet Take 1 tablet (50 mg total) by mouth 1 (one) time each day.30 each 11 [DISCONTINUED] clonazePAM (KlonoPIN) 0.5 mg tablet TAKE 1 TABLET BY MOUTH 3 TIMES DAILY FOR 28 DAYS. 84 tablet 2 ALLERGIES: Hydralazine, Fnidfpx-myv-yvk reductase inhibitors, Gluten, and Sulfa (sulfonamide antibiotics) PHYSICAL EXAM: Blood pressure (!) 195/93, pulse 54, temperature 36.3 ??C (97.3 ??F), temperature source Temporal, height 1.588 m (62.5 ), weight 76.7 kg (169 lb). Body mass index is 30.42 kg/m??. Plan is deferred because the patient is aged 65 or older and a weight gain/reduction plan would complicate other health conditions APPEARANCE: Alert and in no acute distress EYES: PERRLA, conjunctiva and sclera normal EARS: External ears normal. Canals clear. TMs normal. NOSE/SINUS: Nares normal. Septum midline. Mucosa normal. No drainage or sinus tenderness MOUTH/THROAT: no erythema, lesions, or exudates NECK: Neck supple, no adenopathy, thyroid symmetric and of normal size HEART: RRR with normal S1 and S2, no murmurs, no gallops, no JVD appreciated LUNG: clear to auscultation bilaterally LABS: Wt Readings from Last 3 Encounters: 05/05/24 1030 76.7 kg (169 lb) 03/28/24 1440 78.6 kg (173 lb 3.2 oz) 02/24/24 0929 77.1 kg (170 lb) IMPRESSION: 1. Primary hypertension 2. Giant cell arteritis with polymyalgia rheumatica (CMS/HCC) 3. Panic disorder (episodic paroxysmal anxiety) PLAN: Primary hypertension Blood pressure not under control patient started on prednisone was off her beta-blockers for a short period of time However patient's heart rate is in the 50s cannot increase the atenolol she is on spironolactone We will start low-dose lisinopril use and side effects of medication discussed with patient She is advised to call her antenna installer for follow-up she says she has not seen a antenna installer in 2years Return to the office in 6 weeks for follow-up Giant cell arthritis She is doing quite well on the prednisone she will be on the prednisone for about 2 years Follow-up for diabetes Panic disorder On clonazepam 3 times a day a prescription is reviewed and renewed today Return to the office as scheduled No orders of the defined types were placed in this encounter. ADDITIONAL ORDERS: None Belia Villavicencio MD on 05/05/2024 at 12:43 PM EST documented in this encounter Plan of Treatment Upcoming Encounters Date Type Department Care Team (Late st Contact Info) Description 06/16/2024 9:45 AM EDT Office Visit Adult [address] [phone] Belia Villavicencio MD [address] [place] [phone] 09/29/2024 1:15 PM EDT Office Visit Adult [address] [phone] Belia Villavicencio MD [address] [place] [phone] documented as of this encounter Visit Diagnoses Diagnosis Primary hypertension- Primary Unspecified essential hypertension Giant cell arteritis with polymyalgia rheumatica (CMS/HCC) Panic disorder (episodic paroxysmal anxiety) documented in this encounter Discontinued Medications Medication Sig Discontinue Reason Start Date End Da te clonazePAM (KlonoPIN) 0.5 mg tabletIndications:Panic disorder (episodic paroxysmal anxiety) TAKE 1 TABLET BY MOUTH 3 TIMES DAILY FOR 28 DAYS. Reorder 02/10/2024 05/05/2024 documented as of this encounter Additional Health Concerns Assessment Noted Time PHQ-9 Depression Total Score: 0 03/27/19 25 4:47 PM EST documented as of this encounter Care Teams Fuel Attendant Relationship Specialty Start Date End Date Belia Villavicencio MD [address] [place] [phone] PCP - General Internal Medicine 01/17/24 documented as of this encounter
--- OUTSIDE RECORDS SUMMARY | 2024-05-09 10:38 | XMS_ITS | Clinical Summary ---
Author Organization [facility] Address [address] [place] [id number] Care Team Providers Care Package Lift Operator Name Role Phone Urvashi Paredes NP Primary Care Provider [phone] Allergies Active Allergy Reactions Criticality Noted Date [...] age to complete this topic Care Teams Package Lift Operator Relationship Specialty Start Date End Date Urvashi Paredes, TELEPHONE SERVICES SALES REPRESENTATIVE [address] [place] [phone] PCP - General Nurse Practitioner 08/10/20
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
--- OUTSIDE RECORDS SUMMARY | 2024-05-09 10:38 | XMS_ITS | Clinical Summary ---
Author Organization [facility] Address [address] [place] [address] Phone Care Team Providers Care Environmental Engineering Aide Name Role Phone Belia Villavicencio MD Primary Care Prov ider Allergies Active Allergy Reactions Criticality Noted Date Comments Gluten Itching,GI intolerance 01/03/2024 Hydralazine Cardiac Issue High 02/16/2024 Severe chest pain Htehmak-Ucx-Xuj Reductase Inhibitors Muscular Issues High 01/08/2023 Sulfa (Sulfonamide Antibiotics) Rash 01/03/2024 Medications cetirizine (ZyrTEC) 10 mg tablet Take 1 tablet (10 mg total) by mouth 1 (one) time each day if needed for allergies. 4 Active atenoloL (TENORMIN) 25 mg tablet Take 0.5 tablets (12.5 mg total) by mouth 1 (one) time each day. 4 Active spironolactone (Aldactone) 50 mg tablet Take 1 tablet (50 mg total) by mouth 1 (one) time each day. 30 each 11 4 02/14/20 25 Active levothyroxine (SYNTHROID, LEVOTHROID) 100 mcg tablet Take 1 tablet (100 mcg total) by mouth 1 (one) time each day before breakfast. 90 tablet 5 Active ferrous sulfate 325 mg (65 mg elemental iron) tablet TAKE 1 TABLET BY MOUTH EVERY DAY 90 tablet 1 5 Active lisinopriL (PRINIVIL,ZESTR IL) 5 mg tablet Take 1 tablet (5 mg total) by mouth 1 (one) time each day. 30 each 5 5 05/05/19 26 Active clonazePAM (KlonoPIN) 0.5 mg tabletIndicatio ns:Panic disorder (episodic paroxysmal anxiety) Take 1 tablet (0.5 mg total) by mouth 3 (three) times a day. Max Daily Amount: 1.5 mg 90 tablet 2 5 Active clonazePAM (KlonoPIN) 0.5 mg tabletIndicatio ns:Panic disorder (episodic paroxysmal anxiety) TAKE 1 TABLET BY MOUTH 3 TIMES DAILY FOR 28 DAYS. 84 tablet 2 4 05/05/19 25 Discontinue d(Reorder) cefadroxil 500 mg capsule Take 1 capsule (500 mg total) by mouth 2 (two) times a day for 10 days. 20 capsule 5 04/22/19 25 Active Problems Problem Noted Date Diagnosed Date [...] engaged with Dr. Reeves of rheumatology at [facility] Palpitations 03/30/2022 Positive DAREN (antinuclear antibody) 06/18/2021 Obesity (BMI 30.0-34.9) 06/17/2021 Obstructive sleep apnea 06/17/2021 Overview (01/11/2024): Using CPAP (June 2021) Lumbago 10/29/2009 Radiculitis, lumbosacral 10/29/2009 Anemia 10/04/2009 Rheumatoid arthritis 10/04/2009 Hypercholesteremia 10/04/2009 Hypertension 10/04/2009 Hypothyroid 10/04/2009 Panic disorder 10/04/2009 Resolved Problems Problem Noted Date Diagnosed Date Resolved Date Hiatal hernia 03/03/2023 01/19/2024 Assessment & Plan (01/19/2024 2:29 PM EST): Ms. Estevse is a 68 y/o female who is [...] Encounters Date Type Department Care Team Description 05/05/2024 10:30 AM EST Office Visit Adult Medicine [address] [phone] Belia Villavicencio MD Primary hypertension (Primary Dx); Giant cell arteritis with polymyalgia rheumatica (CMS/HCC); Panic disorder (episodic paroxysmal anxiety) 05/02/2024 Telephone Adult Medicine [facility] [address] [place] [phone] Belia Villavicencio MD Hypertension 04/24/2024 Telephone Adult [facility] [address] [place] [phone] Belia Villavicencio MD Return Call From Center/Facility 04/24/2024 Telephone [facility] [address] [facility] [address] [place] [phone] Olivia Montano NP 04/24/2024 Nurse Triage Adult [address] [phone] Belia Villavicencio MD Bradycardia 04/18/2024 11:18 AM EST - 04/18/2024 11:59 PM EST Hospital Encounter CT Scan - [address] [phone] Chronic nonintractable headache, unspecified headache type Discharge Disposition: Home or Self Care 04/17/[address] [phone] Belia Villavicencio MD Faxed Order Mammogram and Ultrasound 04/12/2024 3:30 PM EST Office Visit Walk-In Clinic - [address] [phone] Sue Williamson NP Acute non-recurrent maxillary sinusitis (Primary Dx) 03/30/2024 12:29 PM EST - 03/30/2024 11:59 PM EST Hospital Encounter Radiology Department - [address] [phone] Submandibular gland mass Discharge Disposition: Home or Self Care 03/28/2024 2:30 PM EST Office Visit [address] [phone] Belia Villavicencio MD Rheumatoid arthritis, involving unspecified site, unspecified whether rheumatoid factor present ([facility]) (Primary Dx); Primary hypertension; Celiac disease; Iron deficiency; Hypothyroidism, unspecified type; Submandibular gland mass; Rash 03/27/2024 1:30 PM EST Telemedicine [address] [phone] Medicare annual wellness visit, subsequent (Primary Dx) 03/27/2024 Telephone Adult [address] [phone] Mary Devries [place] Medicare Annual Wellness Visit Subsequent (AWV DUE 2024) 03/16/2024 Telephone Adult [facility] [address] [place] [phone] Belia Villavicencio MD Blood work; Labs Only 02/24/2024 9:20 AM EST Office Visit Gastroenterology - [place] [facility] 175 [facility] [address] [place] [phone] Sylvain Laws PA Celiac sprue (Primary Dx); History of repair of hiatal hernia; H/O chest pain; Gastroesophageal reflux disease with esophagitis without hemorrhage; Fatty liver; Bacterial infection due to H. pylori 02/17/2024 Telephone Pulmonology [facility] 299 [facility] [address] [place] [phone] Mojgan Vanegas [place] 02/16/2024 10:30 AM EST Office Visit Thoracic Surgery - [place] [facility] [address] [place] [phone] Srinath Ibarra PA Incarcerated paraesophageal hernia (Primary Dx) 02/16/2024 7:23 AM EST - 02/16/2024 11:59 PM EST Hospital Encounter [facility] Xray [address] [place] [phone] Diaphragmatic hernia with obstruction, without gangrene Discharge Disposition: Home or Self Care 02/14/2024 3:30 PM EST Office Visit Adult [facility] [address] [place] [phone] Belia Villavicencio MD Allergic drug rash due to non-narcotic analgesic (Primary Dx); Angioedema, subsequent encounter; Gastroesophageal reflux disease without esophagitis; Palpitations; Diarrhea, unspecified type 02/08/2024 11:38 PM EST - 02/09/2024 7:08 AM EST Emergency [facility] Emergency [address] [place] [phone] Jeremiah Kaur MD Other chest pain (Primary Dx); Chest wall pain Discharge Disposition: Home or Self Care from [...] hernia CPAP (continuous positive airway pressure) depen dentaz Celiac disease Rheumatoid arthritis (CMS/HCC) 01/2024 Family [...] loved ones. For example, child and adolescent psychiatrist or elderly care for an [...] 05/05/2024 10:[address] Respiratory Rate 14 02/16/2024 10:25 AM EST Oxygen Saturation 98% 04/12/2024 3:45 PM EST Inhaled Oxygen Concentration - - Weight 76.7 kg (169 lb) 05/05/2024 10:30 AM EST Height 158.8 cm (5' 2.5 ) 05/05/2024 10:30 AM ES T Body Mass Index 30.42 05/05/2024 10:30 AM EST Plan of Treatment Upcoming Encounters Date Type Department Care Team (Late st Contact Info) Description 06/16/2024 9:45 AM EDT Office Visit Adult Medicine [facility] [address] [place] [phone] Belia Villavicencio MD [address] [place] [address] 09/29/2024 1:15 PM EDT Office Visit [address] [phone] Belia Villavicencio MD [address] [place] [address] Health Maintenance Due Date Last Done Comments Breast Cancer Screening 1955 Hepatitis A Vaccines (1 of 2 - Risk 2-dose series) 07/22/1974 Pneumococcal Vaccine: 50+ Years (1 of 2 - PCV) 07/22/1974 Zoster Vaccines (1 of 2) 07/22/1974 Hepatitis B Vaccines (1 of 3 - [...] this topic Medical Devices Implanted Type Area Registered Nurse Obstetrics Device Identifier Shelf Expiration Date Model / Serial / Lot Sealant Fibrin Vistaseal 10ml - [id number] - [id number] Implanted:Qty: 1 on 01/18/2024 by Emily Ho MD at [facility] Hemostasis N/A: Abdomen [employer] [id number] 09/13/2025 [id number] / [id number] / [id number] Tissue Ovitex 1s Perm 6x10cm - [facility] - [id number] Implanted:Qty: 1 on 01/18/2024 by Emily Ho MD at [facility] Surgical Mesh Sling Implants N/A: Abdomen MARGY [employer] [id number] 07/05/2025 [id number] / NA / [id number] Procedures Procedure Name Priority Date/Time Associated Diagnosis Comments CT HEAD WO CONTRAST Routine 04/18/2024 1 1:40 AM EST Chronic nonintractable headache, unspecified headache type POC INFLUENZA A/B Routine 04/13/2024 9:5 5 AM EST Acute non-recurrent maxillary sinusitis POC RAPID [id number], MOLECULAR Routine 04/13/2024 9:54 AM EST Acute [...] 02/09/2024 1:11 AM EST Other chest pain COMPREHENSIVE METABOLIC PANEL STAT 02/08/2024 11:50 PM EST LIPID PANEL Routine 09/20/2023 COLONOSCOPY Routine 10/07/2022 [...] Signed Date: 04/18/2024 12:21 ET Workstation ID: [id number] Transcribed By: Self Edit Transcribed Date: 04/18/2024 11:58 ET Procedure Note Bradnee Moise MD - 04/18/[address] without [...] Signed Date: 04/18/2024 12:21 ET Workstation ID: [id number] Transcribed By: Self Edit Transcribed Date: 04/18/2024 11:58 ET Belia Villavicencio MD IMG CT PROCEDURES Final Result * POC Influenza A/B manually resulted (04/13/2024 9:55 AM EST) Pathologist [facility] Rapid Influenza A AGN POC Negative Negative Rapid Influenza B AGN POC Negative Negative Swab 04/13/2024 9:55 AM EST Sue Williamson NP POINT OF CARE TEST ENTER/EDIT ORDERABLES Final Result * Poc Rapid [id number], MOLECULAR (04/13/2024 9:54 AM EST) Pathologist [facility] COVID-19/SARS- COV-2 Rapid POC Negative Negative Swab Nasopharyngeal structure / Unknown 04/13/2024 9:54 AM EST us Sue Williamson NP POINT [...] Signed Date: 03/30/2024 13:21 ET Workstation ID: [id number] Transcribed By: Self Edit Transcribed Date: 03/30/2024 [...] Signed Date: 03/30/2024 13:21 ET Workstation ID: [id number] Transcribed By: Self Edit Transcribed Date: 03/30/2024 13:20 ET us Belia Villavicencio MD IMG US PROCEDURES Final Result * Thyroid stimulating hormone with reflex to free t4 and free t3 (03/28/2024 3:27 PM EST) TSH 1.42 0.40 - 4.00 mcIU/mL LAB CHEMISTRY METHOD 03/28/2024 6:38 PM EST [facility] Blood Venous blood specimen / Unknown Venipuncture / Unknown 03/28/2024 3:27 PM EST 03/28/2024 3:27 PM EST Belia Villavicencio MD LAB BLOOD ORDERABL ES Final Result [facility] [address] [place] [address], [place] [phone] * (ABNORMAL) Iron and TIBC (03/28/2024 3:27 PM EST) Pathologist [facility] Iron 151(H) 40 - 150 mcg/dL LAB CHEMISTRY METHOD 03/28/2024 6:28 PM EST [facility] TIBC 376 250 - 450 mcg/dL LAB CHEMISTRY METHOD 03/28/2024 6:28 PM EST [facility] Iron Saturation 40 15 - 50 % LAB CHEMISTRY METHOD 03/28/2024 6:28 PM EST [facility] Blood Venous blood specimen / Unknown Venipuncture / Unknown 03/28/2024 3:27 PM EST 03/28/2024 3:27 PM EST Belia Villavicencio MD LAB BLOOD ORDERABL ES Final Result [facility] [address] [place] [address], [place] [phone] * Helicobacter pylori breath test (03/28/2024 3:27 PM EST) H Pylori Breath Test Negative Negative LAB CHEMISTRY METHOD 03/29/2024 11:27 AM EST [facility] Breath Oral cavity structure / Unknown Non-blood Collection / Unknown 03/28/2024 3:27 PM EST 03/28/2024 3:27 PM EST us Sylvain DAILY LAB BODY FLUIDS AND STOOLS LUIS FERNANDO DANIEL Final Result [facility] [address] [place] [address], [place] [phone] * XR Esophagram (02/16/2024 8:20 AM EST) [...] Signed Date: 02/16/2024 11:15 ET Workstation ID: [id number] Transcribed By: Self Edit Transcribed Date: 02/16/2024 10:59 ET Resident/PA/PEDIATRIC UROLOGIST: Nona Kapadia Narrative 02/16/2024 11:15 AM EST FINDINGS: Double contrast esophagram performed. COMPARISON: Esophagram January 19, 2024 HISTORY: Patient is a 68-year-old female one month status post hiatal hernia repair. Avionics Systems Integration Specialist radiographs: 1 view chest radiograph demonstrates cardiac [...] female one month status post hiatalhernia repair. Avionics Systems Integration Specialist radiographs: 1 view chest radiograph demonstrates cardiac [...] Signed Date: 02/16/2024 11:15 ET Workstation ID: [id number] Transcribed By: Self Edit Transcribed Date: 02/16/2024 10:59 ET Resident/PA/PEDIATRIC UROLOGIST: Nona Kapadia us Emily Ho MD IMG FLUOROSCOPY PROCEDURES Final Result * ECG 12 lead (02/09/2024 2:06 AM EST) Ventricular Rate ECG 85 BPM GEMUSE Atrial Rate 85 BPM GEMUSE P-R Interval 236 ms GEMUSE QRS Duration 84 ms GEMUSE Q-T Interval 394 ms GEMUSE QTc 468 ms GEMUSE P Wave [place] 23 degrees GEMUSE R [place] 29 degrees GEMUSE T [place] 9 degrees GEMUSE ECG Interpretation Sinus rhythm with 1st degree A-V block Otherwise normal ECG When compared with ECG of 11-JAN-2024 10:10, NE interval has increased Vent. rate has increased BY ??28 BPM Confirmed by BONITA BACH ([id number]) on 02/09/2024 9:40:31 AM GEMUSE 02/09/2024 2:06 AM EST 02/09/2024 9:40 AM EST Jeremiah Kaur MD ECG ORDERABLES Final Result Performing Organization Address [facility] de Phone Number GEMUSE * Troponin I high sensitivity (02/09/2024 2:00 AM EST) [facility] High Sensitivity Troponin I 15 <=54 ng/L LAB CHEMISTRY METHOD 02/09/2024 2:35 AM EST [facility] Blood Venous blood specimen / Unknown Venipuncture / Unknown 02/09/2024 2:00 AM EST 02/09/2024 2:13 AM EST Narrative [facility] - 02/09/2024 2:35 AM EST High levels of biotin in samples may falsely decrease hsTroponin values. ??Use caution when interpreting hsTroponin results in patients taking biotin who exhibit renal impairment (eGFR <60) or in patients taking more than 20 mg/day of biotin. Jeremiah Kaur MD LAB BLOOD ORDERABLES Final Resu lt Performing Organization Address [facility] Co de Phone Number [facility] [address] [place] [address], * (ABNORMAL) D-dimer, quantitative (02/09/2024 2:00 AM EST) [facility] D-Dimer, Quant (D-DU) 673(H) <=230 ng/mL DDU LAB COAGULATION METHOD 02/09/2024 2:31 AM EST [facility] Blood Venous blood specimen / Unknown Venipuncture / Unknown 02/09/2024 2:00 AM EST 02/09/2024 2:13 AM EST [address] [facility] - 02/09/2024 2:31 AM EST D-Dimer <230 ng/mL (D-Dimer units) is the threshold for exclusion of DVT/PE. D-Dimer may be elevated in: Critically ill, severely infected, trauma patients, DIC, acute CVA, acute [place], unstable angina, AF, old age, , and smoking. D-Dimer may be decreased with: Initiation of heparin therapy and oral anticoagulants. us Jeremiah Kaur MD LAB BLOOD ORDERABLES Final Resu lt [facility] [address] [place] [address], [place] [phone] * CT Angio Chest/Abdomen/Pelvis wo and/or w [...] by: Wilder Camilo DO on 02/09/2024 02:11:47 us Jeremiah Kaur MD IMCoretta CT PROCEDURES Edited Result - Final * (ABNORMAL) Comprehensive metabolic panel (02/08/2024 11:50 PM EST) Sodium 136 133 - 145 mmol/L LAB CHEMISTRY METHOD 02/09/2024 12:47 AM [facility] Potassium 3.2(L) 3.5 - 5.5 mmol/L LAB CHEMISTRY METHOD 02/09/2024 12:47 AM [facility] Chloride 104 96 - 110 mmol/L LAB CHEMISTRY METHOD 02/09/2024 12:47 AM [facility] CO2 21 21 - 32 mmol/L LAB CHEMISTRY METHOD 02/09/2024 12:47 AM [facility] Anion Gap 11 3 - 11 LAB CHEMISTRY METHOD 02/09/2024 12:47 AM [facility] Glucose 115(H) 70 - 100 mg/dL LAB CHEMISTRY METHOD 02/09/2024 12:47 AM [facility] BUN 7 5 - 25 mg/dL LAB CHEMISTRY METHOD 02/09/2024 12:47 AM [facility] Creatinine 0.66 0.50 - 1.10 mg/dL LAB CHEMISTRY METHOD 02/09/2024 12:47 AM [facility] eGFR 96 >=60 mL/min/1. 73m2 LAB CHEMISTRY METHOD 02/09/2024 12:47 AM [facility] Comment:Calculation based on the??Chronic Kidney Disease Epidemiology Collaboration (CKD-EPI) equation refit??without adjustment for race. BUN/Creatinine Ratio 10.6 LAB CHEMISTRY METHOD 02/09/2024 12:47 AM [facility] Calcium 9.3 8.5 - 10.5 mg/dL LAB CHEMISTRY METHOD 02/09/2024 12:47 AM [facility] AST (SGOT) 16 10 - 42 unit/L LAB CHEMISTRY METHOD 02/09/2024 12:47 AM [facility] ALT (SGPT) 23 10 - 60 unit/L LAB CHEMISTRY METHOD 02/09/2024 12:47 AM [facility] Alkaline Phosphatase 74 42 - 121 unit/L LAB CHEMISTRY METHOD 02/09/2024 12:47 AM [facility] Total Protein 7.2 6.0 - 8.0 g/dL LAB CHEMISTRY METHOD 02/09/2024 12:47 AM [facility] Albumin 3.7 3.2 - 5.0 g/dL LAB CHEMISTRY METHOD 02/09/2024 12:47 AM [facility] Total Bilirubin 0.2 0.0 - 1.4 mg/dL LAB CHEMISTRY METHOD 02/09/2024 12:47 AM [facility] Blood Venous blood specimen / Unknown Venipuncture / Unknown 02/08/2024 11:50 PM EST 02/09/2024 12:15 AM EST us Jeremiah Kaur MD LAB BLOOD ORDERABLES Final Resu lt [facility] [address] [place] [address], * (ABNORMAL) Lipid panel (09/20/2023) LDL/HDL Ratio 5(A) 0 - 4 Triglycerides 245(A) 0 - 150 mg/dL Cholesterol 275(A) 0 - 200 mg/dL HDL 60 >=40 mg/dL LDL Cholesterol 166(A) 0 - 100 mg/dL Blood Venous blood specimen / Unknown us Historical Provider MD LAB BLOOD ORDERABLES Molly l Result * [...] classified as having normal bone density. [facility] Department of Internal Medicine recommends [...] classified as having normal bone density. [facility] Department of Internal Medicine recommendsusing [...] fracture risk by FRAX. us Caro DAILY [facility] DXA PROCEDURES Final R esult * Hm Hepatitis C Screening (09/18/2020) Hepatitis C Screening abstracted us Historical Provider HEALTH MAINTENANCE Final Result from Last 3 Months or Most Recently Relevant to Health Maintenance Insurance [facility] MEDICARE [facility] MEDICAID - [place] Advance Directives Documents on File Type Date Recorded Patient Science Professor Expl anation Health Care Decision (hx) 01/09/2023 [...] Esteves Spouse Health Care Agent Care Teams Environmental Engineering Aide Relationship Specialty Start Date End Date Belia Villavicencio MD [address] [place] [id number] PCP - General Internal Medicine 01/17/24
--- OUTSIDE RECORDS SUMMARY | 2024-05-09 10:38 | XMS_ITS | Encounter Summary ---
Author Organization [place] [address] Care Team Providers Care Button Breaker Operator Name Role Phone Belia Villavicencio MD Primary Care Prov ider Reason for Visit * Reason Comments Headache [place], face pressure, S T at night. Onset Wednesday Encounter Details Date Type Department Care Team (Late st Contact Info) Description 04/12/2024 3:30 PM EST Office Visit Walk-[facility] - [facility] [address] [place] [address] Sue Williamson NP [address] [place], [place] [phone] Acute non-recurrent maxillary sinusitis (Primary Dx) Social [...] care for your loved ones. For example, summer child caregiver or elderly care for an older adult? [...] Radiculitis, lumbosacral 10/29/2009 Anemia 10/04/2009 Rheumatoid arthritis ([facility]/HCC) 10/04/2009 Hypercholesteremia 10/04/2009 Hypertension 10/04/2009 Hypothyroid 10/04/2009 [...] Reactions Hydralazine Cardiac Issue Severe chest pain Przmndj-Niw-Ork Reductase Inhibitors Muscular Issues Gluten Itching and [...] Upcoming Encounters Date Type Department Care Team ([facility] Contact Info) Description 06/16/2024 9:45 AM EDT Office Visit [address] [phone] Belia Villavicencio MD [address] [place], [place] 09/29/2024 1:15 PM EDT Office Visit [address] [phone] Belia Villavicencio MD [address] [place], [place] documented as of this encounter Procedures Procedure Name Priority Date/Time Associated Diagnosis Comments POC INFLUENZA A/B Routine 04/13/2024 9:5 5 AM EST Acute non-recurrent maxillary sinusitis POC RAPID [id number], MOLECULAR Routine 04/13/2024 9:54 AM EST Acute non-recurrent maxillary sinusitis documented in this encounter Results * POC Influenza A/B manually resulted (04/13/2024 9:55 AM EST) Rapid Influenza A AGN POC Negative Negative Rapid Influenza B AGN POC Negative Negative Swab 04/13/2024 9:5 5 AM EST us Sue Williamson NP POINT OF CARE TEST ENTER/EDIT ORDERABLES Final Result * Poc Rapid [id number], MOLECULAR (04/13/2024 9:54 AM EST) COVID-19/SARS- COV-2 Rapid POC Negative Negative Swab Nasopharyngeal structure / Unknown 04/13/2024 9:54 AM EST us Sue Williamson EDUCATIONAL FUNDRAISING DIRECTOR POINT OF CARE TEST ENTER/EDIT ORDERABLES Final Result documented in this encounter Visit Diagnoses Diagnosis Acute non-recurrent maxillary sinusitis- Primary documented in this encounter Additional Health Concerns Assessment Noted Time PHQ-9 Depression Total Score: 0 03/27/19 4:47 PM EST documented as of this encounter Care Teams Button Breaker Operator Relationship Specialty Start Date End Date Belia Villavicencio MD [address] [place] [id number] PCP - General Internal Medicine 01/17/24 documented as of this encounter
--- OUTSIDE RECORDS SUMMARY | 2024-05-09 10:38 | XMS_ITS | Encounter Summary ---
Author Organization [facility] [facility] [place] [address] Care Team Providers Care Environmental Control Administrator Name Role Phone Belia Villavicencio MD Primary Care Prov ider Encounter Details Date Type Department Care Team (Late st Contact Info) Description 04/24/2024 Telephone [facility] [address] [place] [phone] Olivia Montano NP [address] [place] [address] [address] [place], [place] [phone] Social History Tobacco Use Types Packs/Day Years [...] care for your loved ones. For example, professor of early childhood education or elderly care for an older adult? [...] and satisfied with this plan. LUIS Mathew, COMMUNITY YOUTH SECRETARY-C, CCK * Olivia Montano NP - 04/24/2024 11:22 AM EST Received message from answering service that patient was having bradycardia. She did not answer my call. Will call again. documented in this encounter Plan of Treatment Upcoming Encounters Date Type Department Care Team (Late st Contact Info) Description 06/16/2024 9:45 AM EDT Office Visit Adult Medicine - [address] [phone] Belia Villavicencio MD [address] [place] [address] 09/29/2024 1:15 PM EDT Office Visit Adult Medicine - [address] [phone] Belia Villavicencio MD [address] [place] [address] documented as of this encounter Visit Diagnoses Not on filedocumented in this encounter Additional Health Concerns Assessment Noted Time PHQ-9 Depression Total Score: 0 03/27/19 4:47 PM EST documented as of this encounter Care Teams Environmental Control Administrator Relationship Specialty Start Date End Date Belia Villavicencio MD [address] [place] [id number] PCP - General Internal Medicine 01/17/24 documented as of this encounter
--- OUTSIDE RECORDS SUMMARY | 2024-05-09 10:38 | XMS_ITS | Encounter Summary ---
Author Organization Dianna [facility] [place] [address] Care Team Providers Care Car Driver Name Role Phone Belia Villavicencio MD Primary Care Prov ider Reason for Visit * Reason Onset Date Comments Bradycardia 04/24/2024 Encounter Details Date Type Department Care Team ([facility] Contact Info) Description 04/24/2024 Nurse Triage Adult Medicine - [place] [address] [place] [phone] Belia Villavicencio MD [address] [place] [address] Bradycardia Social History Tobacco Use Types Packs/Day [...] your loved ones. For example, early childhood specialist or elderly care for an older [...] rate. I will have her call her surface lay out technician before she stops taking the atenolol * [...] No Protocols used: Heart Rate and Heartbeat Vdnbutypb-O-QC * Emma Hallman - 04/24/2024 10:41 AM [...] traveled recently to another state outside of [place], [place], [place], [place], [place], [place], [place]? NO [...] vehicle accident? NO If yes, gather 3rd green party insurance information Date of accident/Injury: n/a How long has patient had these symptoms?: 3 days PCP: Dr Gutierrez Payor: [facility] documented in this encounter Plan of Treatment Upcoming Encounters Date Type Department Care Team (Late st Contact Info) Description 06/16/2024 9:45 AM EDT Office Visit Adult Medicine [address] [phone] Belia Villavicencio MD [address] [place] [address] 09/29/2024 1:15 PM EDT Office Visit Adult Medicine [address] [phone] Belia Villavicencio MD [address] [place] [address] documented as of this encounter Visit Diagnoses Not on filedocumented in this encounter Additional Health Concerns Assessment Noted Time PHQ-9 Depression Total Score: 0 03/27/19 25 4:47 PM EST documented as of this encounter Care Teams Car Driver Relationship Specialty Start Date End Date Belia Villavicencio MD [address] [place] [address] PCP - General Internal Medicine 01/17/24 documented as of this encounter
--- OUTSIDE RECORDS SUMMARY | 2024-05-09 10:38 | XMS_ITS | Encounter Summary ---
Author Organization Dianna [facility] [place] [address] Care Team Providers Care Superintendent Ammunition Storage Name Role Phone Belia Villavicencio MD Primary Care Prov ider Reason for Visit * Reason Onset Date Comments Return Call From Center/Facility 04/24/2024 Encounter Details Date Type Department Care Team ([facility] st Contact Info) Description 04/24/2024 Telephone Adult Medicine [facility] [address] [place] [phone] Belia Villavicencio MD [address] [place] [address] Return Call From Center/Facility Social History Tobacco [...] for your loved ones. For example, child nutrition assistant or elderly care for an older [...] from today. 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 from CLASSIFIER OPERATOR and states she called data collection interviewer and advised her to stop taking Atenolol to see if theres any changes documented in this encounter Plan of Treatment Upcoming Encounters Date Type Department Care Team (Late st Contact Info) Description 06/16/2024 9:45 AM EDT Office Visit Adult Medicine [address] [address] Belia Villavicencio MD [address] [place] [address] 09/29/2024 1:15 PM EDT Office Visit [address] [address] Belia Villavicencio MD [address] [place] [address] documented as of this encounter Visit Diagnoses Not on filedocumented in this encounter Additional Health Concerns Assessment Noted Time PHQ-9 Depression Total Score: 0 03/27/19 4:47 PM EST documented as of this encounter Care Teams Superintendent Ammunition Storage Relationship Specialty Start Date End Date Belia Villavicencio MD [address] [place] [address] PCP - General Internal Medicine 01/17/24 documented as of this encounter
--- OUTSIDE RECORDS SUMMARY | 2024-05-09 10:39 | XMS_ITS | Encounter Summary ---
Author Organization Dianna [place] [address] Care Team Providers Care Farm Adviser Name Role Phone Belia Villavicencio MD Primary Care Prov ider Reason for Visit * Reason Onset Date Comments Faxed Order Mammogram and Ultrasound 04/17/2024 Encounter Details Date Type Department Care Team ([facility] Contact Info) Description 04/17/2024 Telephone Adult Medicine - [place] [address] [place] [phone] Belia Villavicencio MD [address] [place] [address] Faxed Order Mammogram and Ultrasound Social History [...] for your loved ones. For example, child specialist or elderly care for an older [...] dx mammogram and ultrasound received from [facility], requesting signature from provider. Please sign and fax back to [phone]. Order in orange folder documented in this encounter Plan of Treatment Upcoming Encounters Date Type Department Care Team (Late st Contact Info) Description 06/16/2024 9:45 AM EDT Office Visit [address] [phone] Belia Villavicencio MD [address] [place] [address] 09/29/2024 1:15 PM EDT Office Visit [address] [phone] Belia Villavicencio MD [address] [place] [address] documented as of this encounter Visit Diagnoses Not on filedocumented in this encounter Additional Health Concerns Assessment Noted Time PHQ-9 Depression Total Score: 0 03/27/19 4:47 PM EST documented as of this encounter Care Teams Farm Adviser Relationship Specialty Start Date End Date Belia Villavicencio MD [address] [place] [address] [place] [address] PCP - General Internal Medicine 01/17/24 documented as of this encounter
--- OUTSIDE RECORDS SUMMARY | 2024-05-09 10:39 | XMS_ITS | Encounter Summary ---
[facility] [place] [address] Care Team Providers Care Licensed Staff Mft Name Role Phone Belia Villavicencio MD Primary Care Prov ider Reason for Referral * Imaging (Routine) - Pending Review Specialty Diagnoses / Procedures Referred By Moon hendrickson Referred To Contact Radiology Diagnoses Submandibular gland mass Procedures US Head Neck Soft Tissue Belia Villavicencio MD [address] [place] [address] Phone: tel: fax: [facility] 230 [facility] [address] [place] [address] Phone: tel: Referral ID Status Reason Start Date Expiration Date V isits Requested Visits Authorized [id number] Pending Review 03/28/2024 03/28/2025 1 1 Reason for Visit * Reason Comments Hypertension Follow-up Encounter Details Date Type Department Care Team ([facility] st Contact Info) Description 03/28/2024 2:30 PM EST Office Visit Adult Medicine [facility] [address] [place] [phone] Belia Villavicencio MD [address] [place] [address] Rheumatoid arthritis, involving unspecified site, unspecified whether [...] your loved ones. For example, child welfare consultant or elderly care for an older adult? [...] and anxiety. She is followed by the cook morning for her inflammatory dermatitis. She was recently [...] it sometimes appears red. We reviewed her medications. 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 levothyroxine (SYNTHROID, LEVOTHROID) 100 mcg tablet Take 1 tablet (100 mcg total) by mouth 1 (one)time each day before breakfast. 90 tablet 0 spironolactone (Aldactone) 50 mg tablet Take 1 tablet (50 mg total) by mouth 1 (one) time each day.30 each 11 [DISCONTINUED] amoxicillin (AMOXIL) 500 mg capsule Take 2 capsules (1,000 mg total) by mouth 2 (two) times a day. 56 capsule 0 [DISCONTINUED] clonazePAM (KlonoPIN) 0.5 mg tablet TAKE 1 TABLET BY MOUTH 3 TIMES DAILY FOR 28 DAYS. 84 tablet 2 [DISCONTINUED] famotidine (PEPCID) 20 mg tablet TAKE 1 TABLET BY MOUTH EVERY DAY 90 tablet 1 ALLERGIES: Hydralazine, Cklpesz-jtt-rxm reductase inhibitors, Gluten, and Sulfa (sulfonamide antibiotics) [...] Rash PLAN: New diagnosis of rheumatoid arthritis She was started on Plaquenil Hypertension Blood pressure adequately controlled now on Aldactone 50 mg daily atenolol 25 mg daily Will continue for now patient has been having issues with low pulse but is asymptomatic Celiac disease We discussed about foods to avoid including gluten Iron deficiency anemia We will follow CBC iron levels Hypothyroidism Follow TSH Submandibular gland mass Will send patient for ultrasound Rash Associated with his celiac disease We discussed about skin care Return to the office in 3 months or as needed Orders Placed This Encounter Procedures US Head Neck Soft Tissue Thyroid stimulating hormone with reflex to free t4 and free t3 Iron and TIBC ADDITIONAL ORDERS: None Belia Villavicencio MD on 05/05/2024 at 5:25 PM EST documented in this encounter Plan of Treatment Upcoming Encounters Date Type Department Care Team (Late st Contact Info) Description 06/16/2024 9:45 AM EDT Office Visit Adult [address] [phone] Belia Villavicencio MD [address] [place] [address] 09/29/2024 1:15 PM EDT Office Visit [address] [address] Belia Villavicencio MD [address] [place] [address] documented as of this encounter Results * [...] Signed Date: 03/30/2024 13:21 ET Workstation ID: [id number] Transcribed By: Self Edit Transcribed Date: 03/30/2024 [...] Signed Date: 03/30/2024 13:21 ET Workstation ID: [id number] Transcribed By: Self Edit Transcribed Date: 03/30/2024 13:20 ET us Belia Villavicencio MD [facility] [place] PROCEDURES Final Result * (ABNORMAL) Iron [...] ORDERABL ES Final Result Performing Organization Address [facility]/ZIP Co de Phone Number [facility] [address] [place] [address], [place] [phone] * Thyroid stimulating hormone with reflex to free t4 and free t3 (03/28/2024 3:27 PM EST) TSH 1.42 0.40 - 4.00 mcIU/mL LAB CHEMISTRY METHOD 03/28/2024 6:38 PM EST [facility] Blood Venous blood specimen / Unknown Venipuncture / Unknown 03/28/2024 3:27 PM EST 03/28/2024 3:27 PM EST Belia Villavicencio MD LAB BLOOD ORDERABL ES Final Result Performing Organization Address [facility]/ZIP Co de Phone Number [facility] [address] [place] [address], [place] [phone] documented in this encounter Visit Diagnoses Diagnosis Rheumatoid arthritis, involving unspecified site, unspecified whether rheumatoid factor present (CMS/HCC)- Primary Primary hypertension Unspecified essential hypertension Celiac [...] documented as of this encounter Care Teams Licensed Staff Mft Relationship Specialty Start Date End Date Belia Villavicencio MD [address] [place] [address] PCP - General Internal Medicine 01/17/24 documented as of this encounter
--- OUTSIDE RECORDS SUMMARY | 2024-05-09 10:39 | XMS_ITS | Patient Health Record ---
Author Organization [facility] Address [address] [place] [address] Care Team Providers Care Child Care Supervisor Name Role Phone SHANIQUA FERNANDEZ MD Primary Care Provider Unavail able Heena Brasher Unavailable [phone] Reason For Referral No Information Medications Medication [...]
--- OUTSIDE RECORDS SUMMARY | 2024-05-09 10:39 | XMS_ITS | Encounter Summary ---
[facility] [place] [address] Care Team Providers Care Laborer Pipeline Name Role Phone Belia Villavicencio MD Primary Care Prov ider Reason for Referral * Imaging (Routine) - Closed Specialty Diagnoses / Procedures Referred By Moon hendrickson Referred To Contact Radiology Diagnoses Chronic nonintractable headache, unspecified headache type Procedures CT Head wo Contrast Belia Villavicencio MD [address] [place] [address] Phone: tel: fax: CT Scan [address] Phone: tel: fax: Referral ID Status Reason Start Date Expiration Date Visits Re quested Visits Authorized [id number] Closed 04/13/2024 04/13/2025 1 1 Reason for Visit * Imaging (Routine) - Closed Specialty Diagnoses / Procedures Referred By Moon hendrickson Referred To Contact Radiology Diagnoses Chronic nonintractable headache, unspecified headache type Procedures CT Head wo Contrast Belia Villavicencio MD [address] [place] [address] Phone: tel: fax: CT Scan - [facility] [address] [place], [place] Phone: tel: fax: Referral ID Status Reason Start Date Expiration Date Visits Re quested Visits Authorized [id number] Closed 04/13/2024 04/13/2025 1 1 Encounter Details Date Type Department Care Team (Latest Contact Info) Description 04/18/2024 11:18 AM EST - 04/18/2024 11:59 PM EST Hospital Encounter CT Scan - [facility] [address] [place], [place] [phone] Chronic nonintractable headache, unspecified headache type Discharge [...] for your loved ones. For example, childcare director or elderly care for an older [...] each day if needed for allergies. 11/11/2023 ferrous sulfate 325 mg (65 mg elemental [...] for 10 days. 20 capsule 04/12/2024 04/22/2024 clonazePAM (KlonoPIN) 0.5 mg tabletIndications :Panic disorder (episodic paroxysmal anxiety) TAKE 1 TABLET BY MOUTH 3 TIMES DAILY FOR 28 DAYS. 84 tablet 2 02/10/2024 05/05/2024 documented as of this encounter Discharge Disposition Disposition Code Departure Means Destination Home or Self Care documented in this encounter Plan of Treatment Upcoming Encounters Date Type Department Care Team (Late st Contact Info) Description 06/16/2024 9:45 AM EDT Office Visit Adult [address] [address] Belia Villavicencio MD [address] [place] [address] 09/29/2024 1:15 PM EDT Office Visit [address] [address] Belia Villavicencio MD [address] [place] [address] documented as of this encounter Procedures Procedure [...] Signed Date: 04/18/2024 12:21 ET Workstation ID: [id number] Transcribed By: Self Edit Transcribed Date: 04/18/2024 [...] Signed Date: 04/18/2024 12:21 ET Workstation ID: [id number] Transcribed By: Self Edit Transcribed Date: 04/18/2024 11:58 ET Belia Villavicencio MD IMG CT PROCEDURES Final Result documented in this encounter Visit Diagnoses Diagnosis Chronic nonintractable headache, unspecified headache type documented in this encounter Additional Health Concerns Assessment Noted Time PHQ-9 Depression Total Score: 0 03/27/19 25 4:47 PM EST documented as of this encounter Care Teams Laborer Pipeline Relationship Specialty Start Date End Date Belia Villavicencio MD [address] [place] [address] PCP - General Internal Medicine 01/17/24 documented as of this encounter
== END 2024-05-09 09:44 | disposition home or self-care (01) ==
PROVIDERS: PCP Internal Medicine; Visit Provider Surgery
DX: Z51.89 Encounter for other specified aftercare (principal)
CPT/HCPCS: 99024

== ENCOUNTER 2024-05-09 11:36 | Outpatient (REF) | payer OTHER, SELFPAY ==
[2024-05-09 11:54] LABS: MANUAL DIFF FLAG NO
[2024-05-09 12:39] LABS: Basophils Percent Auto 0.1 % (0-2); Eosinophils Percent Auto 0.1 % (0-4); Hematocrit 40.9 % (37.0-47.0); Hemoglobin 13.6 g/dl (12.0-16.0); Imm Gran Abs Auto 0.14 X10*3/uL (0.00-0.03); Imm Gran Pct Auto 0.9 % (0.0-0.4); Lymphocytes Absolute Auto 1.9 X10*3/uL (1.2-4.9); Lymphocytes Percent Auto 12.5 % (20-40); Mean Corpuscular HGB Conc 33.3 g/dl (31.0-35.0); Mean Corpuscular Hemoglobin 26.5 pg (27.0-33.0); Mean Corpuscular Volume 79.7 fL (80.0-98.0); Mean Platelet Volume 9.5 fL (9.4-12.3); Monocytes Absolute Auto 0.7 X10*3/uL (0.1-1.2); Monocytes Percent Auto 4.2 % (2-11); Neutrophils Absolute Auto 12.6 x10*3/uL (2.0-8.3); Neutrophils Percent Auto 82.2 % (45-73); Platelet Count 357 X10*3/uL (160-400); Red Blood Count 5.13 X10*6/uL (4.20-5.50); Red Cell Distribution Width 15.1 % (11.0-16.0); White Blood Count 15.3 X10*3/uL (4.8-10.8)
[2024-05-09 13:10] LABS: Alanine Aminotransferase 28 U/L (0-31); Albumin Level 4.5 g/dL (3.5-5.0); Alkaline Phosphatase 57 U/L (39-117); Anion Gap 13 (12-20); Aspartate Amino Transferase 21 U/L (5-31); Bilirubin Total 0.3 mg/dL (0.0-1.0); Blood Urea Nitrogen 17 mg/dL (9-16); C Reactive Protein < 0.10 mg/dL (< or = 0.50); Calcium 9.9 mg/dL (8.4-10.2); Carbon Dioxide 26 mmol/L (22-29); Chloride 94 mmol/L (96-108); Estimated Glomerular Filt Rate > 60; Glucose Random 98 mg/dL (60-115); Potassium 4.9 mmol/L (3.3-5.1); Sodium 128 mmol/L (135-145); Total Protein 7.8 g/dL (6.5-8.0)
[2024-05-09 13:22] LABS: Erythrocyte Sedimentation Rate 2 MM/HR (0-20)
--- OUTSIDE RECORDS SUMMARY | 2024-05-09 14:47 | XMS_ITS | Encounter Summary ---
Author Organization Dianna [facility] [place] [address] Care Team Providers Care Bagger Meat Name Role Phone Belia Villavicencio MD Primary Care Prov ider Reason for Visit * Reason Onset Date Comments Faxed Order Mammogram and Ultrasound 04/17/2024 Encounter Details Date Type Department Care Team ([facility] Contact Info) Description 04/17/2024 Telephone Adult Medicine - [place] [address] [place] [phone] Belia Villavicencio MD [address] [place] [address] Faxed Order Mammogram and Ultrasound Social History [...] your loved ones. For example, child care specialist or elderly care for an older [...] breast dx mammogram and ultrasound received from [facility], requesting signature from provider. Please sign and fax back to [phone]. Order in orange folder documented in this encounter Plan of Treatment Upcoming Encounters Date Type Department Care Team (Late st Contact Info) Description 06/16/2024 9:45 AM EDT Office Visit [address] [address] Belia Villavicencio MD [address] [place] [address] 09/29/2024 1:15 PM EDT Office Visit [address] [address] Belia Villavicencio MD [address] [place] [address] documented as of this encounter Visit Diagnoses Not on filedocumented in this encounter Additional Health Concerns Assessment Noted Time PHQ-9 Depression Total Score: 0 03/27/19 4:47 PM EST documented as of this encounter Care Teams Bagger Meat Relationship Specialty Start Date End Date Belia Villavicencio MD [address] [place] [address] [place] [address] PCP - General Internal Medicine 01/17/24 documented as of this encounter
--- OUTSIDE RECORDS SUMMARY | 2024-05-09 14:47 | XMS_ITS | Encounter Summary ---
Author [facility] [place] [address] Care Team Providers Care Storeroom Attendant Name Role Phone Belia Villavicencio MD Primary Care Prov ider Reason for Referral * Imaging (Routine) - Pending Review Specialty Diagnoses / Procedures Referred By Moon hendrickson Referred To Contact Radiology Diagnoses Submandibular gland mass Procedures US Head Neck Soft Tissue Belia Villavicencio MD [address] [place] [address] Phone: tel: fax: [facility] 230 [facility] [address] [place] [address] Phone: tel: Referral ID Status Reason Start Date Expiration Date V isits Requested Visits Authorized [id number] Pending Review 03/28/2024 03/28/2025 1 1 Reason for Visit * Reason Comments Hypertension Follow-up Encounter Details Date Type Department Care Team ([facility] st Contact Info) Description 03/28/2024 2:30 PM EST Office Visit Adult Medicine [facility] [address] [place] [phone] Belia Villavicencio MD [address] [place] [address] Rheumatoid arthritis, involving unspecified site, unspecified whether [...] and anxiety. She is followed by the mold holder for her inflammatory dermatitis. She was recently [...] 12/27/2023 Giant cell arteritis with polymyalgia rheumatica ([facility]/HCC) 12/29/2022 Palpitations 03/30/2022 Positive DAREN (antinuclear antibody) [...] EVERY DAY 90 tablet 1 ALLERGIES: Hydralazine, Orujtui-mdi-fqd reductase inhibitors, Gluten, and Sulfa (sulfonamide antibiotics) [...] 06/16/2024 9:45 AM EDT Office Visit Adult [address] [address] Belia Villavicencio MD [address] [place] [address] 09/29/2024 1:15 PM EDT Office Visit [address] [address] Belia Villavicencio MD [address] [place] [address] documented as of this encounter Results * [...] Signed Date: 03/30/2024 13:21 ET Workstation ID: [id number] Transcribed By: Self Edit Transcribed Date: 03/30/2024 [...] Signed Date: 03/30/2024 13:21 ET Workstation ID: [id number] Transcribed By: Self Edit Transcribed Date: 03/30/2024 13:20 ET us Belia Villavicencio MD [facility] US PROCEDURES Final Result * (ABNORMAL) Iron and TIBC (03/28/2024 3:27 PM EST) Iron 151(H) 40 - 150 mcg/dL LAB CHEMISTRY METHOD 03/28/2024 6:28 PM EST [facility] TIBC 376 250 - 450 mcg/dL LAB CHEMISTRY METHOD 03/28/2024 6:28 PM EST [facility] Iron Saturation 40 15 - 50 % LAB CHEMISTRY METHOD 03/28/2024 6:28 PM EST [facility] Blood Venous blood specimen / Unknown Venipuncture / Unknown 03/28/2024 3:27 PM EST 03/28/2024 3:27 PM EST Belia Villavicencio MD LAB BLOOD ORDERABL ES Final Result Performing Organization Address [facility] [address] [facility]/ZIP Co de Phone Number [facility] [address] [place] [address], [place] [phone] * Thyroid stimulating hormone with reflex to free t4 and free t3 (03/28/2024 3:27 PM EST) TSH 1.42 0.40 - 4.00 mcIU/mL LAB CHEMISTRY METHOD 03/28/2024 6:38 PM EST [facility] Blood Venous blood specimen / Unknown Venipuncture / Unknown 03/28/2024 3:27 PM EST 03/28/2024 3:27 PM EST Belia Villavicencio MD LAB BLOOD ORDERABL ES Final Result Performing Organization Address [facility] [address]/ZIP Co de Phone Number [facility] [address] [place] [address], [place] [phone] documented in this encounter Visit Diagnoses Diagnosis [...] documented as of this encounter Care Teams Storeroom Attendant Relationship Specialty Start Date End Date Belia Villavicencio MD [address] [place] [address] PCP - General Internal Medicine 01/17/24 documented as of this encounter
--- OUTSIDE RECORDS SUMMARY | 2024-05-09 14:47 | XMS_ITS | Encounter Summary ---
Author Organization Dianna [facility] [place] [address] Care Team Providers Care Or First Assist Registered Nurse Name Role Phone Belia Villavicencio MD Primary Care Prov ider Reason for Visit * Reason Comments Hypertension High reading on the 200's highest reading 215/90 Encounter Details Date Type Department Care Team (Late st Contact Info) Description 05/05/2024 10:30 AM EST Office Visit Adult Medicine - [address] [phone] Belia Villavicencio MD [address] [place] [address] Primary hypertension (Primary Dx); Giant cell arteritis [...] care for your loved ones. For example, residential child care counselor or elderly care for [...] She said that she did see the water analyst who did a biopsy did not see [...] 12/27/2023 Giant cell arteritis with polymyalgia rheumatica ([facility]/HCC) 12/29/2022 Palpitations 03/30/2022 Positive DAREN (antinuclear [...] 28 DAYS. 84 tablet 2 ALLERGIES: Hydralazine, Tclqaye-ejp-swb reductase inhibitors, Gluten, and Sulfa (sulfonamide antibiotics) [...] patient She is advised to call her air drier for follow-up she says she has not seen a air drier in 2years Return to the office in [...] 06/16/2024 9:45 AM EDT Office Visit Adult [address] [phone] Belia Villavicencio MD [address] [place] [address] 09/29/2024 1:15 PM EDT Office Visit Adult [address] [phone] Belia Villavicencio MD [address] [place] [address] documented as of this encounter Visit Diagnoses [...] documented as of this encounter Care Teams Or First Assist Registered Nurse Relationship Specialty Start Date End Date Belia Villavicencio MD [address] [place] [address] PCP - General Internal Medicine 01/17/24 documented as of this encounter
--- OUTSIDE RECORDS SUMMARY | 2024-05-09 14:47 | XMS_ITS | Encounter Summary ---
Author Organization [facility] [place] [address] Care Team Providers Care Railway Head Tender Name Role Phone Belia Villavicencio MD Primary Care Prov ider Encounter Details Date Type Department Care Team (Late st Contact Info) Description 04/24/2024 Telephone [facility] [address] [place] [phone] Olivia Montano NP [address] [place] [address] [address] [place], [place] [phone] Social History Tobacco Use Types Packs/Day Years [...] your loved ones. For example, child care aide or elderly care for an older [...] and satisfied with this plan. LUIS Mathew, HAND TUBE WINDER-C, CCK * Olivia Montano NP - 04/24/2024 11:22 AM EST Received message from answering service that patient was having bradycardia. She did not answer my call. Will call again. documented in this encounter Plan of Treatment Upcoming Encounters Date Type Department Care Team (Late st Contact Info) Description 06/16/2024 9:45 AM EDT Office Visit Adult Medicine - [address] [phone] Belia Villavicencio MD [address] [place] [address] 09/29/2024 1:15 PM EDT Office Visit Adult Medicine - [address] [phone] Belia Villavicencio MD [address] [place] [address] documented as of this encounter Visit Diagnoses Not on filedocumented in this encounter Additional Health Concerns Assessment Noted Time PHQ-9 Depression Total Score: 0 03/27/19 4:47 PM EST documented as of this encounter Care Teams Railway Head Tender Relationship Specialty Start Date End Date Belia Villavicnecio MD [address] [place] [address] PCP - General Internal Medicine 01/17/24 documented as of this encounter
--- OUTSIDE RECORDS SUMMARY | 2024-05-09 14:47 | XMS_ITS | Encounter Summary ---
Author Organization [facility] [place] [address] Care Team Providers Care Sail Repair Person Name Role Phone Belia Villavicencio MD Primary Care Prov ider Reason for Referral * Imaging (Routine) - Closed Specialty Diagnoses / Procedures Referred By Moon hendrickson Referred To Contact Radiology Diagnoses Chronic nonintractable headache, unspecified headache type Procedures CT Head wo Contrast Belia Villavicencio MD [address] [place] [address] Phone: tel: fax: CT Scan [address] Phone: tel: fax: Referral ID Status Reason Start Date Expiration Date Visits Re quested Visits Authorized [id number] Closed 04/13/2024 04/13/2025 1 1 Reason for Visit * Imaging (Routine) - Closed Specialty Diagnoses / Procedures Referred By Moon hendrickson Referred To Contact Radiology Diagnoses Chronic nonintractable headache, unspecified headache type Procedures CT Head wo Contrast Belia Villavicencio MD [address] [place] [address] Phone: tel: fax: CT Scan - [place] [address] [place], [place] Phone: tel: fax: Referral ID Status Reason Start Date Expiration Date Visits Re quested Visits Authorized [id number] Closed 04/13/2024 04/13/2025 1 1 Encounter Details Date Type Department Care Team (Latest Contact Info) Description 04/18/2024 11:18 AM EST - 04/18/2024 11:59 PM EST Hospital Encounter CT Scan - [place] [address] [place], [place] [phone] Chronic nonintractable headache, unspecified headache type Discharge [...] your loved ones. For example, children's tutor nursery or elderly care for an older adult? [...] 06/16/2024 9:45 AM EDT Office Visit Adult [address] [phone] Belia Villavicencio MD [address] [place] [address] 09/29/2024 1:15 PM EDT Office Visit [address] [phone] Belia Villavicencio MD [address] [place] [address] documented as of this encounter Procedures Procedure [...] Signed Date: 04/18/2024 12:21 ET Workstation ID: [id number] Transcribed By: Self Edit Transcribed Date: 04/18/2024 [...] Signed Date: 04/18/2024 12:21 ET Workstation ID: [id number] Transcribed By: Self Edit Transcribed Date: 04/18/2024 11:58 ET Belia Villavicencio MD IMG CT PROCEDURES Final Result documented in this encounter Visit Diagnoses Diagnosis Chronic nonintractable headache, unspecified headache type documented in this encounter Additional Health Concerns Assessment Noted Time PHQ-9 Depression Total Score: 0 03/27/19 25 4:47 PM EST documented as of this encounter Care Teams Sail Repair Person Relationship Specialty Start Date End Date Belia Villavicencio MD [address] [place] [address] PCP - General Internal Medicine 01/17/24 documented as of this encounter
--- OUTSIDE RECORDS SUMMARY | 2024-05-09 14:47 | XMS_ITS | Encounter Summary ---
Author Organization [place] [address] Care Team Providers Care Surveillance Supervisor Name Role Phone Belia Villavicencio MD Primary Care Prov ider Reason for Visit * Reason Comments Headache [place], face pressure, S T at night. Onset Wednesday Encounter Details Date Type Department Care Team (Late st Contact Info) Description 04/12/2024 3:30 PM EST Office Visit [facility] [place] [address] [place] [address] Sue Williamson NP [address] [place], [place] [phone] Acute non-recurrent maxillary sinusitis (Primary Dx) Social [...] loved ones. For example, early childhood education worker or elderly care for an older [...] Radiculitis, lumbosacral 10/29/2009 Anemia 10/04/2009 Rheumatoid arthritis ([facility]/HCC) 10/04/2009 Hypercholesteremia 10/04/2009 Hypertension 10/04/2009 Hypothyroid 10/04/2009 [...] Reactions Hydralazine Cardiac Issue Severe chest pain Cddzpuu-Iih-Brt Reductase Inhibitors Muscular Issues Gluten Itching and [...] Upcoming Encounters Date Type Department Care Team ([facility] Contact Info) Description 06/16/2024 9:45 AM EDT Office Visit [address] [phone] Belia Villavicencio MD [address] [place], [place] 09/29/2024 1:15 PM EDT Office Visit [address] [phone] Belia Villavicencio MD [address] [place], [place] documented as of this encounter Procedures Procedure Name Priority Date/Time Associated Diagnosis Comments POC INFLUENZA A/B Routine 04/13/2024 9:5 5 AM EST Acute non-recurrent maxillary sinusitis POC RAPID [id number], MOLECULAR Routine 04/13/2024 9:54 AM EST Acute non-recurrent maxillary sinusitis documented in this encounter Results * POC Influenza A/B manually resulted (04/13/2024 9:55 AM EST) Rapid Influenza A AGN POC Negative Negative Rapid Influenza B AGN POC Negative Negative Swab 04/13/2024 9:5 5 AM EST us Sue Williamson NP POINT OF CARE TEST ENTER/EDIT ORDERABLES Final Result * Poc Rapid [id number], MOLECULAR (04/13/2024 9:54 AM EST) COVID-19/SARS- COV-2 Rapid POC Negative Negative Swab Nasopharyngeal structure / Unknown 04/13/2024 9:54 AM EST us Sue Williamson PARATRANSIT OPERATOR POINT OF CARE TEST ENTER/EDIT ORDERABLES Final Result documented in this encounter Visit Diagnoses Diagnosis Acute non-recurrent maxillary sinusitis- Primary documented in this encounter Additional Health Concerns Assessment Noted Time PHQ-9 Depression Total Score: 0 03/27/19 4:47 PM EST documented as of this encounter Care Teams Surveillance Supervisor Relationship Specialty Start Date End Date Belia Villavicencio MD [address] [place] [id number] PCP - General Internal Medicine 01/17/24 documented as of this encounter
--- OUTSIDE RECORDS SUMMARY | 2024-05-09 14:47 | XMS_ITS | Clinical Summary ---
Author Organization [facility] Address [address] [place] [address] Care Team Providers Care Call Center Trainer Name Role Phone Urvashi Paredes NP Primary Care Provider Allergies Active Allergy Reactions Criticality Noted Date [...] age to complete this topic Care Teams Call Center Trainer Relationship Specialty Start Date End Date Urvashi Paredes, DAIRY ASSOCIATE [address] [place] [address] PCP - General Nurse Practitioner 08/10/20
--- OUTSIDE RECORDS SUMMARY | 2024-05-09 14:47 | XMS_ITS | Encounter Summary ---
Author Organization [facility] [place] [address] Care Team Providers Care Tax Professional Name Role Phone Belia Villavicencio MD Primary Care Prov ider Reason for Visit * Reason Onset Date Comments Hypertension 05/02/2024 Encounter Details Date Type Department Care Team ([facility] Contact Info) Description 05/02/2024 Telephone Adult Medicine - [place] [address] [place] [phone] Belia Villavicencio MD [address] [place] [address] Hypertension Social History Tobacco Use Types Packs/Day [...] traveled recently to another state outside of [place], [place], [place], [place], [place], [place], [place]? no o If yes, did you quarantine [...] gather 3rd green party insurance information Third Republican Information: not applicable PCP: Belia Villavicencio MD Payor: [facility] / Plan: [facility] OPTIONS PPO / Product Type: *No Product type* / documented in this encounter Plan of Treatment Upcoming Encounters Date Type Department Care Team (Late st Contact Info) Description 06/16/2024 9:45 AM EDT Office Visit Adult [address] [address] Belia Villavicencio MD [address] [place], [place] 09/29/2024 1:15 PM EDT Office Visit [facility] [address] [place] [address] Belia Villavicencio MD [address] [place] [address] documented as of this encounter Visit Diagnoses Not on filedocumented in this encounter Additional Health Concerns Assessment Noted Time PHQ-9 Depression Total Score: 0 03/27/19 4:47 PM EST documented as of this encounter Care Teams Tax Professional Relationship Specialty Start Date End Date Belia Villavicencoi MD [address] [place] [address] PCP - General Internal Medicine 01/17/24 documented as of this encounter
--- OUTSIDE RECORDS SUMMARY | 2024-05-09 14:47 | XMS_ITS | Encounter Summary ---
Author Organization [facility] [place] [address] Care Team Providers Care Body Shop Estimator Name Role Phone Belia Villavicencio MD Primary Care Prov ider Reason for Visit * Reason Onset Date Comments Bradycardia 04/24/2024 Encounter Details Date Type Department Care Team ([facility] Contact Info) Description 04/24/2024 Nurse Triage Adult Medicine - [place] [address] [place] [phone] Belia Villavicencio MD [address] [place] [address] Bradycardia Social History Tobacco Use Types Packs/Day [...] care for your loved ones. For example, teacher early childhood development or elderly care for an older adult? [...] rate. I will have her call her transportation dispatcher before she stops taking the atenolol * [...] No Protocols used: Heart Rate and Heartbeat [id number] * Emma Hallman - 04/24/2024 10:41 AM [...] traveled recently to another state outside of [place], [place], [place], [place], [place], [place], [place]? NO [...] vehicle accident? NO If yes, gather 3rd constitution party insurance information Date of accident/Injury: n/a How long has patient had these symptoms?: 3 days PCP: Dr Gutierrez Payor: [facility] documented in this encounter Plan of Treatment Upcoming Encounters Date Type Department Care Team (Late st Contact Info) Description 06/16/2024 9:45 AM EDT Office Visit Adult Medicine [address] [phone] Belia Villavicencio MD [address] [place] [address] 09/29/2024 1:15 PM EDT Office Visit Adult Medicine [address] [phone] Belia Villavicencio MD [address] [place] [address] documented as of this encounter Visit Diagnoses Not on filedocumented in this encounter Additional Health Concerns Assessment Noted Time PHQ-9 Depression Total Score: 0 03/27/19 25 4:47 PM EST documented as of this encounter Care Teams Body Shop Estimator Relationship Specialty Start Date End Date Belia Villavicencio MD [address] [place] [address] PCP - General Internal Medicine 01/17/24 documented as of this encounter
--- OUTSIDE RECORDS SUMMARY | 2024-05-09 14:47 | XMS_ITS | Clinical Summary ---
Author Organization [facility] Address [address] [place] [address] Phone Care Team Providers Care Electronic Components Assembler Name Role Phone Belia Villavicencio MD Primary Care Prov ider Allergies Active Allergy Reactions Criticality Noted Date Comments Gluten Itching,GI intolerance 01/03/2024 Hydralazine Cardiac Issue High 02/16/2024 Severe chest pain Ermxsuj-Ugl-Bnp Reductase Inhibitors Muscular Issues High 01/08/2023 Sulfa [...] engaged with Dr. Reeves of rheumatology at [place] Palpitations 03/30/2022 Positive DAREN (antinuclear antibody) 06/18/2021 [...] 10:30 AM EST Office Visit Adult Medicine [address] [phone] Belia Villavicencio MD Primary hypertension (Primary Dx); Giant cell arteritis with polymyalgia rheumatica (CMS/HCC); Panic disorder (episodic paroxysmal anxiety) 05/02/2024 Telephone Adult Medicine [facility] [address] [place] [phone] Belia Villavicencio MD Hypertension 04/24/2024 Telephone Adult [facility] [address] [place] [phone] Belia Villavicencio MD Return Call From Center/Facility 04/24/2024 Telephone [facility] [address] [facility] [address] [facility] [address] [place] [phone] Olivia Montano NP 04/24/2024 Nurse Triage Adult [address] [phone] Belia Villavicencio MD Bradycardia 04/18/2024 11:18 AM EST - 04/18/2024 11:59 PM EST Hospital Encounter CT Scan - [address] [phone] Chronic nonintractable headache, unspecified headache type Discharge Disposition: Home or Self Care 04/17/[address] [phone] Belia Villavicencio MD Faxed Order Mammogram and Ultrasound 04/12/2024 3:30 PM EST Office Visit Walk-In Clinic - [address] [phone] Sue Williamson NP Acute non-recurrent maxillary sinusitis (Primary Dx) 03/30/2024 12:29 PM EST - 03/30/2024 11:59 PM EST Hospital Encounter Radiology Department - [address] [phone] Submandibular gland mass Discharge Disposition: Home or Self Care 03/28/2024 2:30 PM EST Office Visit [address] [phone] Belia Villavicencio MD Rheumatoid arthritis, involving unspecified site, unspecified whether rheumatoid factor present ([facility]) (Primary Dx); Primary hypertension; Celiac disease; Iron deficiency; Hypothyroidism, unspecified type; Submandibular gland mass; Rash 03/27/2024 1:30 PM EST Telemedicine [address] [phone] Medicare annual wellness visit, subsequent (Primary Dx) 03/27/2024 Telephone Adult [address] [phone] Mary Devries [place] Medicare Annual Wellness Visit Subsequent (AWV DUE 2024) 03/16/2024 Telephone Adult [facility] [address] [place] [phone] Belia Villavicencio MD Blood work; Labs Only 02/24/2024 9:20 AM EST Office Visit Gastroenterology - [place] [facility] [address] [facility] [address] [place] [phone] Sylvain Laws PA Celiac sprue (Primary Dx); History of repair of hiatal hernia; H/O chest pain; Gastroesophageal reflux disease with esophagitis without hemorrhage; Fatty liver; Bacterial infection due to H. pylori 02/17/2024 Telephone Pulmonology [facility] [address] [facility] [address] [place] [phone] Mojgan Vanegas [place] 02/16/2024 10:30 AM EST Office Visit Thoracic Surgery - [place] 299 [facility] [address] [place] [phone] Srinath Ibarra PA Incarcerated paraesophageal hernia (Primary Dx) 02/16/2024 7:23 AM EST - 02/16/2024 11:59 PM EST Hospital Encounter [facility] [address] [place] [phone] Diaphragmatic hernia with obstruction, without gangrene Discharge Disposition: Home or Self Care 02/14/2024 3:30 PM EST Office Visit Adult [facility] [address] [place] [phone] Belia Villavicencio MD Allergic drug rash due to non-narcotic analgesic (Primary Dx); Angioedema, subsequent encounter; Gastroesophageal reflux disease without esophagitis; Palpitations; Diarrhea, unspecified type 02/08/2024 11:38 PM EST - 02/09/2024 7:08 AM EST Emergency [facility] Emergency [address] [place] [phone] Jeremiah Kaur MD Other chest pain (Primary [...] care for your loved ones. For example, children counselor or elderly care for an older [...] 9:45 AM EDT Office Visit Adult Medicine [facility] [address] [place] [phone] Belia Villavicencio MD [address] [place] [address] 09/29/2024 1:15 PM EDT Office Visit [address] [phone] Belia Villavicencio MD [address] [place] [address] Health Maintenance Due Date Last Done Comments [...] this topic Medical Devices Implanted Type Area Staff Anesthesiologist Device Identifier Shelf Expiration Date Model / Serial / Lot Sealant Fibrin Vistaseal 10ml - [id number] - [id number] Implanted:Qty: 1 on 01/18/2024 by Emily Ho MD at [facility] Hemostasis N/A: Abdomen [employer] [id number] 09/13/2025 [id number] / [id number] / [id number] Tissue Ovitex 1s Perm 6x10cm - [facility] - [id number] Implanted:Qty: 1 on 01/18/2024 by Emily Ho MD at [facility] Surgical Mesh Sling Implants N/A: Abdomen [employer] [id number] 07/05/2025 [id number] / NA / [id number] 1 Procedures Procedure Name Priority Date/Time Associated Diagnosis Comments CT HEAD WO CONTRAST Routine 04/18/2024 1 1:40 AM EST Chronic nonintractable headache, unspecified headache type POC INFLUENZA A/B Routine 04/13/2024 9:5 5 AM EST Acute non-recurrent maxillary sinusitis POC RAPID [id number], MOLECULAR Routine 04/13/2024 9:54 AM EST Acute [...] Signed Date: 04/18/2024 12:21 ET Workstation ID: [id number] Transcribed By: Self Edit Transcribed Date: 04/18/2024 [...] Signed Date: 04/18/2024 12:21 ET Workstation ID: [id number] Transcribed By: Self Edit Transcribed Date: 04/18/2024 [...] ENTER/EDIT ORDERABLES Final Result * Poc Rapid [id number], MOLECULAR (04/13/2024 9:54 AM EST) Pathologist [place] [...] Signed Date: 03/30/2024 13:21 ET Workstation ID: [id number] Transcribed By: Self Edit Transcribed Date: 03/30/2024 [...] Signed Date: 03/30/2024 13:21 ET Workstation ID: [id number] Transcribed By: Self Edit Transcribed Date: 03/30/2024 [...] Result [facility] [address] [place] [address], [place] [phone] * (ABNORMAL) Iron and TIBC (03/28/2024 3:27 PM EST) Pathologist [facility] Iron 151(H) 40 - 150 mcg/dL LAB [...] Result [facility] [address] [place] [address], [place] [phone] * Helicobacter pylori breath test (03/28/2024 3:27 PM EST) H Pylori Breath Test Negative Negative LAB CHEMISTRY METHOD 03/29/2024 11:27 AM EST [facility] Breath Oral cavity structure / Unknown Non-blood Collection / Unknown 03/28/2024 3:27 PM EST 03/28/2024 3:27 PM EST us Sylvain DAILY LAB BODY FLUIDS AND STOOLS LUIS FERNANDO DANIEL Final Result [facility] [address] [place] [address], [place] [phone] * XR Esophagram (02/16/2024 8:20 AM EST) [...] Signed Date: 02/16/2024 11:15 ET Workstation ID: [id number] Transcribed By: Self Edit Transcribed Date: 02/16/2024 10:59 ET Resident/PA/TELEPHONIC NURSE CASE MANAGER: Nona Kapadia Narrative 02/16/2024 11:15 AM EST FINDINGS: Double contrast esophagram performed. COMPARISON: Esophagram January 19, 2024 HISTORY: Patient is a 68-year-old female one month status post hiatal hernia repair. Classics Teacher radiographs: 1 view chest radiograph demonstrates cardiac [...] female one month status post hiatalhernia repair. Classics Teacher radiographs: 1 view chest radiograph demonstrates cardiac [...] Signed Date: 02/16/2024 11:15 ET Workstation ID: [id number] Transcribed By: Self Edit Transcribed Date: 02/16/2024 10:59 ET Resident/PA/TELEPHONIC NURSE CASE MANAGER: Nona Kapadia us Emily Ho MD IMG FLUOROSCOPY PROCEDURES Final Result * ECG 12 lead (02/09/2024 2:06 AM EST) Ventricular Rate ECG 85 BPM GEMUSE Atrial Rate 85 BPM GEMUSE P-R Interval 236 ms GEMUSE QRS Duration 84 ms GEMUSE Q-T Interval 394 ms GEMUSE QTc 468 ms GEMUSE P Wave [place] 23 degrees GEMUSE R [place] 29 degrees GEMUSE T [place] 9 degrees GEMUSE ECG Interpretation Sinus rhythm with 1st degree A-V block Otherwise normal ECG When compared with ECG of 11-JAN-2024 10:10, [place] interval has increased Vent. rate has increased BY ??28 BPM Confirmed by BONITA BACH ([id number]) on 02/09/2024 9:40:31 AM GEMUSE 02/09/2024 2:06 AM EST 02/09/2024 9:40 AM EST Jeremiah Kaur MD ECG ORDERABLES Final Result Performing Organization Address [facility] de Phone Number GEMUSE * Troponin I high sensitivity (02/09/2024 2:00 AM EST) [facility] High Sensitivity Troponin I 15 <=54 ng/L LAB CHEMISTRY METHOD 02/09/2024 2:35 AM EST [facility] Blood Venous blood specimen / Unknown Venipuncture / Unknown 02/09/2024 2:00 AM EST 02/09/2024 2:13 AM EST Narrative [facility] - 02/09/2024 2:35 AM EST High levels of biotin in samples may falsely decrease hsTroponin values. ??Use caution when interpreting hsTroponin results in patients taking biotin who exhibit renal impairment (eGFR <60) or in patients taking more than 20 mg/day of biotin. Jeremiah Kaur MD LAB BLOOD ORDERABLES Final Resu lt Performing Organization Address [facility] Co de Phone Number [facility] [address] [place] [address], * (ABNORMAL) D-dimer, quantitative (02/09/2024 2:00 AM EST) [facility] D-Dimer, Quant (D-DU) 673(H) <=230 ng/mL DDU LAB COAGULATION METHOD 02/09/2024 2:31 AM EST [facility] Blood Venous blood specimen / Unknown Venipuncture / Unknown 02/09/2024 2:00 AM EST 02/09/2024 2:13 AM EST Narrative [facility] - 02/09/2024 2:31 AM EST D-Dimer <230 ng/mL (D-Dimer units) is the threshold for exclusion of DVT/PE. D-Dimer may be elevated in: Critically ill, severely infected, trauma patients, DIC, acute CVA, acute CT, unstable angina, AF, old age, , and smoking. D-Dimer may be decreased with: Initiation of heparin therapy and oral anticoagulants. us Jeremiah Kaur MD LAB BLOOD ORDERABLES Final Resu lt [facility] ([facility] [address] [place] [address], [place] [phone] * CT Angio Chest/Abdomen/Pelvis wo and/or w Contrast (02/09/2024 1:11 AM EST) Anatomical Region Laterality Modality Body Computed Tomogra phy 02/09/2024 2:11 AM EST Addenda Addendum by Wilder aCmilo MD on 02/09/2024 2:30 AM EST ADDENDUM: [...] mmol/L LAB CHEMISTRY METHOD 02/09/2024 12:47 AM [facility] Potassium 3.2(L) 3.5 - 5.5 mmol/L LAB CHEMISTRY METHOD 02/09/2024 12:47 AM [facility] Chloride 104 96 - 110 mmol/L LAB CHEMISTRY METHOD 02/09/2024 12:47 AM [facility] CO2 21 21 - 32 mmol/L LAB CHEMISTRY METHOD 02/09/2024 12:47 AM [facility] Anion Gap 11 3 - 11 LAB CHEMISTRY METHOD 02/09/2024 12:47 AM [facility] Glucose 115(H) 70 - 100 mg/dL LAB CHEMISTRY METHOD 02/09/2024 12:47 AM [facility] BUN 7 5 - 25 mg/dL LAB CHEMISTRY METHOD 02/09/2024 12:47 AM [facility] Creatinine 0.66 0.50 - 1.10 mg/dL LAB CHEMISTRY METHOD 02/09/2024 12:47 AM [facility] eGFR 96 >=60 mL/min/1. 73m2 LAB CHEMISTRY METHOD 02/09/2024 12:47 AM [facility] Comment:Calculation based on the??Chronic Kidney Disease Epidemiology Collaboration (CKD-EPI) equation refit??without adjustment for race. BUN/Creatinine Ratio 10.6 LAB CHEMISTRY METHOD 02/09/2024 12:47 AM [facility] Calcium 9.3 8.5 - 10.5 mg/dL LAB CHEMISTRY METHOD 02/09/2024 12:47 AM [facility] AST (SGOT) 16 10 - 42 unit/L LAB CHEMISTRY METHOD 02/09/2024 12:47 AM [facility] ALT (SGPT) 23 10 - 60 unit/L LAB CHEMISTRY METHOD 02/09/2024 12:47 AM [facility] Alkaline Phosphatase 74 42 - 121 unit/L LAB CHEMISTRY METHOD 02/09/2024 12:47 AM [facility] Total Protein 7.2 6.0 - 8.0 g/dL LAB CHEMISTRY METHOD 02/09/2024 12:47 AM [facility] Albumin 3.7 3.2 - 5.0 g/dL LAB CHEMISTRY METHOD 02/09/2024 12:47 AM [facility] Total Bilirubin 0.2 0.0 - 1.4 mg/dL LAB CHEMISTRY METHOD 02/09/2024 12:47 AM [facility] Blood Venous blood specimen / Unknown Venipuncture / Unknown 02/08/2024 11:50 PM EST 02/09/2024 12:15 AM EST us Jeremiah Kaur MD LAB BLOOD ORDERABLES Final Resu lt [facility] [address] [place] [address], * (ABNORMAL) Lipid panel (09/20/2023) LDL/HDL Ratio [...] classified as having normal bone density. [facility] Department of Internal Medicine recommends using [...] classified as having normal bone density. [facility] Department of Internal Medicine recommendsusing National [...] fracture risk by FRAX. us Caro DAILY [facility] DXA PROCEDURES Final R esult * Hm Hepatitis C Screening (09/18/2020) Hepatitis C Screening abstracted us Historical Provider HEALTH MAINTENANCE Final Result from Last 3 Months or Most Recently Relevant to Health Maintenance Insurance [facility] MEDICARE [facility] MEDICAID - [place] Advance Directives Documents on File Type Date Recorded Patient Hybrid Technologist Expl anation Health Care Decision (hx) 01/09/2023 [...] Esteves Spouse Health Care Agent Care Teams Electronic Components Assembler Relationship Specialty Start Date End Date Belia Villavicencio MD [address] [place] [phone] PCP - General Internal Medicine 01/17/24
--- OUTSIDE RECORDS SUMMARY | 2024-05-09 14:47 | XMS_ITS | Encounter Summary ---
Author Organization [facility] [place] [address] Care Team Providers Care Contract Negotiation Manager Name Role Phone Belia Villavicencio MD Primary Care Prov ider Reason for Visit * Reason Onset Date Comments Return Call From Center/Facility 04/24/2024 Encounter Details Date Type Department Care Team ([facility] st Contact Info) Description 04/24/2024 Telephone Adult Medicine [facility] [address] [place] [phone] Belia Villavicencio MD [address] [place] [address] Return Call From Center/Facility Social History Tobacco [...] from today. 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 from VESSEL TRAFFIC OFFICER and states she called certified ophthalmic assistant and advised her to stop taking Atenolol to see if theres any changes documented in this encounter Plan of Treatment Upcoming Encounters Date Type Department Care Team (Late st Contact Info) Description 06/16/2024 9:45 AM EDT Office Visit Adult Medicine [address] [phone] Belia Villavicencio MD [address] [place] [phone] 09/29/2024 1:15 PM EDT Office Visit [address] [phone] Belia Villavicencio MD [address] [place] [phone] documented as of this encounter Visit Diagnoses Not on filedocumented in this encounter Additional Health Concerns Assessment Noted Time PHQ-9 Depression Total Score: 0 03/27/19 4:47 PM EST documented as of this encounter Care Teams Contract Negotiation Manager Relationship Specialty Start Date End Date Belia Villavicencio MD [address] [place] [address] PCP - General Internal Medicine 01/17/24 documented as of this encounter
== END 2024-05-09 11:37 | disposition home or self-care (01) ==
LOC: HO.LAB 11:36
PROVIDERS: PCP Internal Medicine; Visit Provider Student in an Organized Health Care Education/Training Program
DX: Z51.89 Encounter for other specified aftercare (principal); M35.3 Polymyalgia rheumatica; M31.6 Other giant cell arteritis
CPT/HCPCS: 36415; 80053; 85025; 85652; 86140; 99212

== ENCOUNTER 2024-05-11 10:26 | Outpatient (AMB) | payer OTHER, SELFPAY ==
--- NOTE | 2024-05-11 10:27 | A.OFFVIS_ITS ---
Vital Signs 05/11/24 10:39 Height 5 ft 2.5 in Weight 168 lb 3.403 oz BMI 30.3 BP 134/72 Blood Pressure Location Lt brachial Position Sitting Pulse 62 Pulse Source Pulse Oximeter Pulse Oximetry (%) 98 Oxygen Delivery Method Room Air Intake Visit Reasons: RA Intake Note: Patient presents for RA. Allergies hydralazine Allergy (Severe, Verified 05/11/24 10:32) Shortness of Breath Sulfa (Sulfonamide Antibiotics) Allergy (Intermediate, Verified 05/11/24 10:32) Rash sulfamethoxazole [From Bactrim] Allergy (Intermediate, Verified 05/11/24 10:32) Rash trimethoprim [From Bactrim] Allergy (Intermediate, Verified 05/11/24 10:32) Rash rosuvastatin Adverse Reaction (Severe, Verified 05/11/24 10:32) Joint Pain Medication List - Last Reconciled 05/11/24 by Jina Braden MD atenolol 25 mg PO DAILY cetirizine 10 mg PO BEDTIME clonazepam 0.5 mg PO TID PRN CPAP As directed levothyroxine 100 mcg PO DAILY prednisone 10 mg PO DIRECTED spironolactone 50 mg PO DAILY HPI Comments Details: Patient is a 68 y.o. female with celiac disease, Crohn's disease, hypertension, hypothyroidism and a history of PMR presents today for evaluation of headache Interval History: Patient last seen 04/19/2024. At that time she was being seen by me for an urgent visit complaining of headache associated with jaw claudication and sore throat without any visual changes. Blood work showed significantly elevated inflammatory markers and she was started on prednisolone taper for a presumed diagnosis of GCA. She followed up with General surgery and had a temporal artery biopsy which was negative for any evidence of temporal arteritis however given her symptoms, her history of PMR and her improvement in inflammatory markers on the prednisone it is likely that this still is her diagnosis and we are currently pursuing a PET scan. Since that visit reviewed 05/05/2024 visit to primary care with concerns of elevated blood pressure. Was started on a new BP medication per patient's primary Doing well overall Headaches have resolved No visual changes Rheumatologic History: PMR onset around 10/2022 elevated ESR and CRP. 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 Paresthesias Vertigo HTN (hypertension) Arthritis Anemia Hypothyroidism Vertigo Anxiety Back pain Surgical History Hx of cholecystectomy H/O: hysterectomy Giant cell arteritis H/O esophageal hernia repair Family History Brother Liver disease Cancer Sister Stroke Diabetes Sister Cancer Rheumatoid arthritis Sister Vitiligo Rheumatoid arthritis Daughter Vitiligo Social History (Updated 05/11/24 @ 10:39 by DARWIN Yu) Household Members: Spouse Housing: House Are you a primary animal care technician to a significant other at home: No Do you presently have visiting nurse or other home services: No 75 years or older and lives alone: No Alcohol intake: former Patient Tobacco Use Status: Former Tobacco user Years Smoked: Quit 25 years ago e-Cigarette/Vaping Use: Never Used service: No Current occupational status: retired Review of Systems Const Details: Review of Systems Constitutional: Denies fever, chills, weight loss ENT: Denies vision changes, eye pain or eye redness, dental caries, dry mouth GI: Denies nausea, vomiting, diarrhea, abdominal pain, change in BM Pulm: Denies SOB, , hemoptysis, wheezing Cards: Denies chest pain, palpitations Skin: Denies Raynaud's, rash, nail changes, photosensitivity, AUTOMOTIVE LEASING SALES REPRESENTATIVE: Denies headaches, weakness, paresthesias, recurrent falls MSK: as per HPI All other systems reviewed and are unremarkable except noted above Physical Exam Vital Signs: Last Vital Signs Pulse 62 05/11/24 10:39 BP 134/72 05/11/24 10:39 Pulse Ox 98 05/11/24 10:39 Oxygen Delivery Method Room Air 05/11/24 10:39 BMI result Body Mass Index 30.3 Vital signs reviewed Physical Examination CONSTITUITIONAL Patient alert and cooperative. Well appearing and in no apparent painful distress HEENT Conjunctiva and sclera clear. ?Pupils equal round and reactive to light. ?No lymphadenopathy. ? Decreased temporal artery pulse on the right. No tenderness to palpation bilaterally. CHEST/RESPIRATORY SYSTEM Normal respiratory effort and able to speak in complete sentences. ?Clear to auscultation bilaterally. ?No crackles, rales, rhonchi, wheezes heard. CARDIAC SYSTEM Regular rate and rhythm. ?S1 and S2 heard no murmurs. ?Radial pulses intact bilaterally MSK Hands: ?Good field inspector strength bilaterally. No deformities noted. ?No synovitis noted to the MCPs, PIPs or DIPs. ?No tenderness to palpation of these joints. Wrists: ?Full range of motion at the wrists without pain. ?No tenderness to palpation or synovitis noted to the wrists. Elbows: Full range of motion without pain. No tenderness, weakness, swelling, increased warmth or erythema. Shoulders: Full range of motion without pain. No tenderness, weakness, swelling, increased warmth or erythema. Hips: Full range of motion without pain. Hip bursa: No tenderness to palpation Knees: ?Full range of motion. ?No tenderness, swelling, increased warmth or erythema.?No effusion or crepitations Ankles: Full range of motion. ?No tenderness, swelling, increased warmth or erythema.? Feet: ?Negative squeeze test. ?No tenderness to palpation or swelling of the MTPs. Tender points:?No tenderness to palpation of the bilateral trapezius, supraspinatus, greater trochanters, anterior costochondral junctions, bilateral gluteal areas, bilateral suboccipital muscle insertions SKIN Skin intact without rashes. Results Reviewed Results Reviewed: Laboratory Tests 04/14/24 05/09/24 14:43 11:53 WBC 15.3 H RBC 5.13 Hgb 13.6 Hct 40.9 Plt Count 357 ESR 30 H 2 Sodium 128 L Potassium 4.9 Chloride 94 L Carbon Dioxide 26 BUN 17 H Creatinine 0.70 Random Glucose 98 Calcium 9.9 Total Bilirubin 0.3 AST 21 ALT 28 Alkaline Phosphatase 57 C-Reactive Protein 3.97 H < 0.10 Total Protein 7.8 Albumin 4.5 TA biopsy 04/28/24 Artery with intimal hyperplasia; otherwise within normal limits; negative arteritis Assessment & Plan Assessment & Plan (1) Giant cell arteritis: Comment: 04/2024. Occipital headache associated with elevated inflammatory markers TA biopsy negative Code(s): M31.6 - Other giant cell arteritis Category: Surgical Plan: #GCA Patient with new onset occipital headache associated with jaw claudication and worsening inflammatory markers on a background of a history of PMR. This is consistent with GCA and meets classification criteria. Patient was started on prednisone with resolution of her symptoms and her inflammatory markers. Unfortunately the temporal artery biopsy was negative but this can happen in about 20% of the cases. I we will be pursuing a PET-CT scan as patient was complaining of jaw claudication, sore throat and difficulty swallowing which c ould signal involvement of the aorta and its major vessels. Ideally she would be treated with Actemra however she has a history of 2 episodes of diverticulitis making Actemra contraindicated. We will proceed with the long taper based on the GIACTA trial and start methotrexate Plan - Continue prednisone taper based on chart below. She is currently on week 4 - Start Methotrexate 15mg weekly - Folic acid 1 mg daily - RTC 4 weeks - labs before visit: CBC, CMP, ESR, CRP References: Baltazar JH, Viral K, Jason S, Gaby M, Paula M, Hosea D, Janak E, Magdiel MC, Guerline B, Augie J, Deborah C, Stephen G, Fabien H, Laura R, Mylene SH, John N. Trial of Tocilizumab in Giant-Cell Arteritis. N Engl J Med. 2017 Oct 01;377(4):317-328. doi: 10.1056/[id number]. PMID: 13671554. 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: Code(s): Z79.52 - USP (current) use of systemic steroids Category: Medical Plan: #Long-term Use of Steroids Discussed with patient the risks and benefits of steroid for managing the rheumatic condition Benefits include: - Reduced pain, improved mobility, increased participation in activities, and decreased progression of disease Risks include: - GI upset, potential ultrasound worsening or formation (especially in patients > 65 years old), elevated blood pressure/worsening hypertension, elevated blood sugar/worsening diabetes control, worsening of bone density, elevated lipids/worsening triglycerides, cataract formation, weight gain Recommended using proton pump inhibitors (PPIs) for the duration of steroid use to reduce the risk of gastric ulcers and vitamin-D daily to reduce the risk of osteoporosis Labs checked: ?A1c, T spot, hepatitis-B and C serologies Pneumocystis jiroveci prophylaxis: ?Patient with risk factors including steroids greater than 50 mg for more than 30 days, age greater than 60 years, and lung involvement from underlying rheumatic disease requires prophylaxis and will be given so (3) Encounter for methotrexate monitoring: Code(s): Z51.81 - Encounter for therapeutic drug level monitoring; Z79.631 - USP (current) use of antimetabolite agent Plan: #Long-term Current Use of Methotrexate Discussed with patient the benefits and risks of methotrexate for managing their rheumatic condition Benefits include reduced pain, reduced mortality, maintenance of remission and reduction of flares Risks include oral ulcers, photosensitivity, hepatotoxicity, hematologic toxicity, pneumonitis, flu-like symptoms (especially day after administration), nodulosis, lymphomas ? Limit alcohol and avoid Bactrim ? Monitoring: ?CBC, BMP, LFTs every 3-4 months and hepatitis serologies as needed Plan I spent 45 minutes reviewing the record and labs, taking a history, examining the patient, discussing the treatment plan, answering questions and documenting in the medical record Orders: Orders C Reactive Protein Today M31.6 - Other giant cell arteritis Erythrocyte Sedimentation Rate Today M31.6 - Other giant cell arteritis Complete Blood Count Auto Diff 4 Weeks M31.6 - Other giant cell arteritis Comprehensive Met. Panel Today M31.6 - Other giant cell arteritis Medications: New methotrexate sodium 15 mg (6 x 2.5 mg) PO QWEEK 90 days 78 tabs 1RF M31.6 - Other giant cell arteritis folic acid 1 mg PO DAILY 90 tabs 1RF M31.6 - Other giant cell arteritis Changed From prednisone Take 3 tablets in the morning and 3 tablets in the evening for 1 week then 3 tablets in the morning and 2 tablets in the evening for 1 week then 2 tablets in the morning and 2 tablets in the evening for 1 week then 2 tablets in the morning and 1.5 tablets in the evening for 1 week 10 mg PO DIRECTED 130 tabs 0RF M31.6 - Other giant cell arteritis To prednisone Take 3 tablets in the morning and 3 tablets in the evening for 1 week, then 3 tablets in the morning 2 tablets in the evening for 1 week, then 2 tablets in the morning 2 tablets in the evening for 1 week, then 2 tablets in the morning 1-1/2 tablets in the evening for 2 weeks 5 mg PO DIRECTED 130 tabs 0RF M31.6 - Other giant cell arteritis Coding Level of Care Code Est Pt Level 5 (82888) Complex EM visit Add On G2211 Diagnoses Giant cell arteritis M31.6 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
[2024-05-11 10:39] VITALS: BP 134/72; PULSE 62; O2SAT 98; BMI 30.3
--- OUTSIDE RECORDS SUMMARY | 2024-05-11 12:26 | XMS_ITS | Encounter Summary ---
Author Organization [facility] [place] [address] Care Team Providers Care Semiconductor Lab Technician Name Role Phone Belia Villavicencio MD Primary Care Prov ider Reason for Visit * Reason Onset Date Comments Faxed Order Mammogram and Ultrasound 04/17/2024 Encounter Details Date Type Department Care Team ([facility] Contact Info) Description 04/17/2024 Telephone Adult Medicine - [place] [address] [place] [phone] Belia Villavicencio MD [address] [place] [address] Faxed Order Mammogram and Ultrasound Social History [...] for your loved ones. For example, children's literature professor or elderly care for an older adult? [...] breast dx mammogram and ultrasound received from [facility], requesting signature from provider. Please sign and fax back to [phone]. Order in orange folder documented in this encounter Plan of Treatment Upcoming Encounters Date Type Department Care Team (Late st Contact Info) Description 06/16/2024 9:45 AM EDT Office Visit [address] [phone] Belia Villavicencio MD [address] [place] [address] 09/29/2024 1:15 PM EDT Office Visit [address] [phone] Belia Villavicencio MD [address] [place] [address] documented as of this encounter Visit Diagnoses Not on filedocumented in this encounter Additional Health Concerns Assessment Noted Time PHQ-9 Depression Total Score: 0 03/27/19 4:47 PM EST documented as of this encounter Care Teams Semiconductor Lab Technician Relationship Specialty Start Date End Date Belia Villavicencio MD [address] [place] [address] [facility] [address] PCP - General Internal Medicine 01/17/24 documented as of this encounter
--- OUTSIDE RECORDS SUMMARY | 2024-05-11 12:26 | XMS_ITS | Encounter Summary ---
Author Organization [facility] [place] [address] Care Team Providers Care It Application Development Manager Name Role Phone Belia Villavicencio MD Primary Care Prov ider Reason for Visit * Reason Comments Hypertension High reading on the 200's highest reading 215/90 Encounter Details Date Type Department Care Team (Late st Contact Info) Description 05/05/2024 10:30 AM EST Office Visit Adult Medicine - [address] [phone] Belia Villavicencio MD [address] [place] [address] Primary hypertension (Primary Dx); Giant cell arteritis [...] She said that she did see the horticultural specialty grower field who did a biopsy did not see [...] 28 DAYS. 84 tablet 2 ALLERGIES: Hydralazine, Llcdrry-cvk-bmd reductase inhibitors, Gluten, and Sulfa (sulfonamide antibiotics) [...] patient She is advised to call her floor layer helper for follow-up she says she has not seen a floor layer helper in 2years Return to the office in [...] 06/16/2024 9:45 AM EDT Office Visit Adult [address] [phone] Belia Villavicencio MD [address] [place] [address] 09/29/2024 1:15 PM EDT Office Visit Adult [address] [phone] Belia Villavicencio MD [address] [place] [address] documented as of this encounter Visit Diagnoses [...] documented as of this encounter Care Teams It Application Development Manager Relationship Specialty Start Date End Date Belia Villavicencio MD [address] [place] [phone] PCP - General Internal Medicine 01/17/24 documented as of this encounter
--- OUTSIDE RECORDS SUMMARY | 2024-05-11 12:26 | XMS_ITS | Encounter Summary ---
Author Organization [employer] [address] Care Team Providers Care Stock Driver Name Role Phone Belia Villavicencio MD Primary Care Prov ider Reason for Visit * Reason Comments Headache BARFIELD, face pressure, S T at night. Onset Wednesday Encounter Details Date Type Department Care Team (Late st Contact Info) Description 04/12/2024 3:30 PM EST Office Visit Walk[facility] Clinic - [place] [address] [place] [address] Sue Williamson NP [address] [place], [place] [phone] Acute non-recurrent maxillary sinusitis (Primary Dx) Social [...] Radiculitis, lumbosacral 10/29/2009 Anemia 10/04/2009 Rheumatoid arthritis ([facility]/HCC) 10/04/2009 Hypercholesteremia 10/04/2009 Hypertension 10/04/2009 Hypothyroid [...] Reactions Hydralazine Cardiac Issue Severe chest pain Pnmbtsr-Ixw-Rkv Reductase Inhibitors Muscular Issues Gluten Itching and [...] Upcoming Encounters Date Type Department Care Team ([facility] Contact Info) Description 06/16/2024 9:45 AM EDT Office Visit [address] [phone] Belia Villavicencio MD [address] [place], [place] 09/29/2024 1:15 PM EDT Office Visit [address] [phone] Belia Villavicencio MD [address] [place], [place] documented as of this encounter Procedures Procedure Name Priority Date/Time Associated Diagnosis Comments POC INFLUENZA A/B Routine 04/13/2024 9:5 5 AM EST Acute non-recurrent maxillary sinusitis POC RAPID [id number], MOLECULAR Routine 04/13/2024 9:54 AM EST Acute non-recurrent maxillary sinusitis documented in this encounter Results * POC Influenza A/B manually resulted (04/13/2024 9:55 AM EST) Rapid Influenza A AGN POC Negative Negative Rapid Influenza B AGN POC Negative Negative Swab 04/13/2024 9:5 5 AM EST us Sue Williamson NP POINT OF CARE TEST ENTER/EDIT ORDERABLES Final Result * Poc Rapid [id number], MOLECULAR (04/13/2024 9:54 AM EST) COVID-19/SARS- COV-2 Rapid POC Negative Negative Swab Nasopharyngeal structure / Unknown 04/13/2024 9:54 AM EST us Sue Williamson DIE DRAWING CHECKER POINT OF CARE TEST ENTER/EDIT ORDERABLES Final Result documented in this encounter Visit Diagnoses Diagnosis Acute non-recurrent maxillary sinusitis- Primary documented in this encounter Additional Health Concerns Assessment Noted Time PHQ-9 Depression Total Score: 0 03/27/19 4:47 PM EST documented as of this encounter Care Teams Stock Driver Relationship Specialty Start Date End Date Belia Villavicencio MD [address] [place] [address] PCP - General Internal Medicine 01/17/24 documented as of this encounter
--- OUTSIDE RECORDS SUMMARY | 2024-05-11 12:26 | XMS_ITS | Encounter Summary ---
Author Organization [email or web address] [facility] [place] [address] Care Team Providers Care Waste Water Operator Name Role Phone Belia Villavicencio MD Primary Care Prov ider Encounter Details Date Type Department Care Team (Late st Contact Info) Description 04/24/2024 Telephone [facility] [address] [place] [phone] Olivia Montano NP [address] [place] [address] [address] [place], [place] [phone] Social History Tobacco Use Types Packs/Day Years [...] care for your loved ones. For example, child's nurse or elderly care for an older adult? [...] and satisfied with this plan. LUIS Mathew, WATER COMMISSIONER-C, CCK * Olivia Montano NP - 04/24/2024 11:22 AM EST Received message from answering service that patient was having bradycardia. She did not answer my call. Will call again. documented in this encounter Plan of Treatment Upcoming Encounters Date Type Department Care Team (Late st Contact Info) Description 06/16/2024 9:45 AM EDT Office Visit Adult Medicine - [address] [phone] Belia Villavicencio MD [address] [place] [address] 09/29/2024 1:15 PM EDT Office Visit Adult Medicine - [address] [phone] Belia Villavicencio MD [address] [place] [address] documented as of this encounter Visit Diagnoses Not on filedocumented in this encounter Additional Health Concerns Assessment Noted Time PHQ-9 Depression Total Score: 0 03/27/19 4:47 PM EST documented as of this encounter Care Teams Waste Water Operator Relationship Specialty Start Date End Date Belia Villavicencio MD [address] [place] [phone] PCP - General Internal Medicine 01/17/24 documented as of this encounter
--- OUTSIDE RECORDS SUMMARY | 2024-05-11 12:26 | XMS_ITS | Encounter Summary ---
Author Organization [facility] [place] [address] Care Team Providers Care Booster Operator Name Role Phone Belia Villavicencio MD Primary Care Prov ider Reason for Referral * Imaging (Routine) - Closed Specialty Diagnoses / Procedures Referred By Moon hendrickson Referred To Contact Radiology Diagnoses Chronic nonintractable headache, unspecified headache type Procedures CT Head wo Contrast Belia Villavicencio MD [address] [place] [address] Phone: tel: fax: CT Scan [address] Phone: tel: fax: Referral ID Status Reason Start Date Expiration Date Visits Re quested Visits Authorized [id number] Closed 04/13/2024 04/13/2025 1 1 Reason for Visit * Imaging (Routine) - Closed Specialty Diagnoses / Procedures Referred By Moon hendrickson Referred To Contact Radiology Diagnoses Chronic nonintractable headache, unspecified headache type Procedures CT Head wo Contrast Belia Villavicencio MD [address] [place] [address] Phone: tel: fax: CT Scan - [place] [address] [place], [place] Phone: tel: fax: Referral ID Status Reason Start Date Expiration Date Visits Re quested Visits Authorized [id number] Closed 04/13/2024 04/13/2025 1 1 Encounter Details Date Type Department Care Team (Latest Contact Info) Description 04/18/2024 11:18 AM EST - 04/18/2024 11:59 PM EST Hospital Encounter CT Scan - [place] [address] [place], [place] [phone] Chronic nonintractable headache, unspecified headache type Discharge [...] for your loved ones. For example, child custody evaluator or elderly care for an older adult? [...] 06/16/2024 9:45 AM EDT Office Visit Adult [address] [phone] Belia Villavicencio MD [address] [place] [address] 09/29/2024 1:15 PM EDT Office Visit [address] [phone] Belia Villavicencio MD [address] [place] [address] documented as of this encounter Procedures Procedure [...] Signed Date: 04/18/2024 12:21 ET Workstation ID: [id number] Transcribed By: Self Edit Transcribed Date: 04/18/2024 [...] Signed Date: 04/18/2024 12:21 ET Workstation ID: [id number] Transcribed By: Self Edit Transcribed Date: 04/18/2024 11:58 ET Belia Villavicencio MD IMG CT PROCEDURES Final Result documented in this encounter Visit Diagnoses Diagnosis Chronic nonintractable headache, unspecified headache type documented in this encounter Additional Health Concerns Assessment Noted Time PHQ-9 Depression Total Score: 0 03/27/19 25 4:47 PM EST documented as of this encounter Care Teams Booster Operator Relationship Specialty Start Date End Date Belia Villavicencio MD [address] [place] [address] PCP - General Internal Medicine 01/17/24 documented as of this encounter
--- OUTSIDE RECORDS SUMMARY | 2024-05-11 12:26 | XMS_ITS | Encounter Summary ---
Author Organization [facility] [place] [address] Care Team Providers Care Internship Name Role Phone Belia Villavicencio MD Primary Care Prov ider Reason for Referral * Imaging (Routine) - Pending Review Specialty Diagnoses / Procedures Referred By Moon hendrickson Referred To Contact Radiology Diagnoses Submandibular gland mass Procedures US Head Neck Soft Tissue Belia Villavicencio MD [address] [place] [address] Phone: tel: fax: [facility] 230 [facility] 230 [place] [address] Phone: tel: Referral ID Status Reason Start Date Expiration Date V isits Requested Visits Authorized [id number] Pending Review 03/28/2024 03/28/2025 1 1 Reason for Visit * Reason Comments Hypertension Follow-up Encounter Details Date Type Department Care Team ([facility] st Contact Info) Description 03/28/2024 2:30 PM EST Office Visit Adult Medicine [facility] [address] [place] [phone] Belia Villavicencio MD [address] [place] [address] Rheumatoid arthritis, involving unspecified site, unspecified whether [...] for your loved ones. For example, children's book author or elderly care for an older adult? [...] and anxiety. She is followed by the compressor service technician for her inflammatory dermatitis. She was recently [...] 12/27/2023 Giant cell arteritis with polymyalgia rheumatica ([facility]/HCC) 12/29/2022 Palpitations 03/30/2022 Positive DAREN (antinuclear antibody) 06/18/2021 Obesity (BMI 30.0-34.9) 06/17/2021 Obstructive sleep apnea 06/17/2021 Lumbago 10/29/2009 Radiculitis, lumbosacral 10/29/2009 Anemia 10/04/2009 Rheumatoid arthritis ([facility]/HCC) 10/04/2009 Hypercholesteremia 10/04/2009 Hypertension 10/04/2009 Hypothyroid 10/04/2009 [...] EVERY DAY 90 tablet 1 ALLERGIES: Hydralazine, Itbyrer-xgp-kaz reductase inhibitors, Gluten, and Sulfa (sulfonamide antibiotics) [...] 06/16/2024 9:45 AM EDT Office Visit Adult [address] [phone] Belia Villavicencio MD [address] [place] [address] 09/29/2024 1:15 PM EDT Office Visit [address] [address] Belia Villavicencio MD [address] [place] [address] documented as of this encounter Results * [...] Signed Date: 03/30/2024 13:21 ET Workstation ID: [id number] Transcribed By: Self Edit Transcribed Date: 03/30/2024 [...] Signed Date: 03/30/2024 13:21 ET Workstation ID: [id number] Transcribed By: Self Edit Transcribed Date: 03/30/2024 13:20 ET us Belia Villavicencio MD [facility] US PROCEDURES Final Result * (ABNORMAL) Iron and TIBC (03/28/2024 3:27 PM EST) Iron 151(H) 40 - 150 mcg/dL LAB CHEMISTRY METHOD 03/28/2024 6:28 PM EST [facility] TIBC 376 250 - 450 mcg/dL LAB CHEMISTRY METHOD 03/28/2024 6:28 PM EST [facility] Iron Saturation 40 15 - 50 % LAB CHEMISTRY METHOD 03/28/2024 6:28 PM EST [facility] Blood Venous blood specimen / Unknown Venipuncture / Unknown 03/28/2024 3:27 PM EST 03/28/2024 3:27 PM EST Belia Villavicencio MD LAB BLOOD ORDERABL ES Final Result Performing Organization Address [facility]/ZIP Co de Phone Number [facility] [address] [place] [address], [place] [phone] * Thyroid stimulating hormone with reflex to free t4 and free t3 (03/28/2024 3:27 PM EST) TSH 1.42 0.40 - 4.00 mcIU/mL LAB CHEMISTRY METHOD 03/28/2024 6:38 PM EST [facility] Blood Venous blood specimen / Unknown Venipuncture / Unknown 03/28/2024 3:27 PM EST 03/28/2024 3:27 PM EST Belia Villavicencio MD LAB BLOOD ORDERABL ES Final Result Performing Organization Address [facility]/ZIP Co de Phone Number [facility] [address] [place] [address], [place] [phone] documented in this encounter Visit Diagnoses Diagnosis [...] documented as of this encounter Care Teams Internship Relationship Specialty Start Date End Date Belia Villavicencio MD [address] [place] [address] PCP - General Internal Medicine 01/17/24 documented as of this encounter
--- OUTSIDE RECORDS SUMMARY | 2024-05-11 12:26 | XMS_ITS | Encounter Summary ---
Author Organization [facility] [place] [address] Care Team Providers Care Concrete Building Assembler Name Role Phone Belia Villavicencio MD Primary Care Prov ider Reason for Visit * Reason Onset Date Comments Hypertension 05/02/2024 Encounter Details Date Type Department Care Team ([facility] Contact Info) Description 05/02/2024 Telephone Adult Medicine - [place] [address] [place] [phone] Belia Villavicencio MD [address] [place] [address] Hypertension Social History Tobacco Use Types Packs/Day [...] traveled recently to another state outside of [place], [place], [place], [place], [place], [place], [place]? no o If yes, did you quarantine [...] of accident/Injury: No If yes, gather 3rd democrat insurance information Third Alliance Party Information: not applicable PCP: Belia Villavicencio MD Payor: [facility] / Plan: [facility] OPTIONS PPO / Product Type: *No Product type* / documented in this encounter Plan of Treatment Upcoming Encounters Date Type Department Care Team (Late st Contact Info) Description 06/16/2024 9:45 AM EDT Office Visit Adult [address] [phone] Belia Villavicencio MD [address] [place], [place] 09/29/2024 1:15 PM EDT Office Visit [facility] [address] [place] [address] Belia Villavicencio MD [address] [place] [address] documented as of this encounter Visit Diagnoses Not on filedocumented in this encounter Additional Health Concerns Assessment Noted Time PHQ-9 Depression Total Score: 0 03/27/19 4:47 PM EST documented as of this encounter Care Teams Concrete Building Assembler Relationship Specialty Start Date End Date Belia Villavicencio MD [address] [place] [address] PCP - General Internal Medicine 01/17/24 documented as of this encounter
--- OUTSIDE RECORDS SUMMARY | 2024-05-11 12:26 | XMS_ITS | Encounter Summary ---
Author Organization [facility] [place] [address] Care Team Providers Care Hr Associate Name Role Phone Belia Villavicencio MD Primary Care Prov ider Reason for Visit * Reason Onset Date Comments Bradycardia 04/24/2024 Encounter Details Date Type Department Care Team ([facility] Contact Info) Description 04/24/2024 Nurse Triage Adult Medicine - [place] [address] [place] [phone] Belia Villavicencio MD [address] [place] [address] Bradycardia Social History Tobacco Use Types Packs/Day [...] your loved ones. For example, child welfare social worker or elderly care for an [...] rate. I will have her call her delivery room supervisor before she stops taking the atenolol * [...] No Protocols used: Heart Rate and Heartbeat Ltekdxmce-E-OF * Emma Hallman - 04/24/2024 10:41 AM [...] traveled recently to another state outside of [place], [place], [place], [place], [place], [place], [place]? NO [...] vehicle accident? NO If yes, gather 3rd libertarian insurance information Date of accident/Injury: n/a How long has patient had these symptoms?: 3 days PCP: Dr Gutierrez Payor: [facility] documented in this encounter Plan of Treatment Upcoming Encounters Date Type Department Care Team (Late st Contact Info) Description 06/16/2024 9:45 AM EDT Office Visit Adult Medicine [address] [phone] Belia Villavicencio MD [address] [place] [address] 09/29/2024 1:15 PM EDT Office Visit Adult Medicine [address] [address] Belia Villavicencio MD [address] [place] [address] documented as of this encounter Visit Diagnoses Not on filedocumented in this encounter Additional Health Concerns Assessment Noted Time PHQ-9 Depression Total Score: 0 03/27/19 25 4:47 PM EST documented as of this encounter Care Teams Hr Associate Relationship Specialty Start Date End Date Belia Villavicencio MD [address] [place] [address] PCP - General Internal Medicine 01/17/24 documented as of this encounter
--- OUTSIDE RECORDS SUMMARY | 2024-05-11 12:26 | XMS_ITS | Patient Health Record ---
Author Organization [facility] Address [address] [place] [address] Care Team Providers Care Wheel Filler Name Role Phone SHANIQUA FERNANDEZ MD Primary Care Provider Unavail able Heena Brasher Unavailable [phone] Reason For Referral No Information Medications Medication [...]
--- OUTSIDE RECORDS SUMMARY | 2024-05-11 12:26 | XMS_ITS | Clinical Summary ---
Author Organization [facility] Address [address] [place] [address] Care Team Providers Care Retort Fireman Name Role Phone Urvashi Paredes NP Primary Care Provider [phone] Allergies Active Allergy Reactions Criticality Noted Date [...] age to complete this topic Care Teams Retort Fireman Relationship Specialty Start Date End Date Urvashi Paredes, PHOTOLITHOGRAPHER [address] [place] [address] PCP - General Nurse Practitioner 08/10/20
--- OUTSIDE RECORDS SUMMARY | 2024-05-11 12:26 | XMS_ITS | Clinical Summary ---
Author Organization [facility] Address [address] [place] [address] Phone Care Team Providers Care Insole Tack Puller Hand Name Role Phone Belia Villavicencio MD Primary Care Prov ider Allergies Active Allergy Reactions Criticality Noted Date Comments Gluten Itching,GI intolerance 01/03/2024 Hydralazine Cardiac Issue High 02/16/2024 Severe chest pain Shjknkv-Uuy-Fik Reductase Inhibitors Muscular Issues High 01/08/2023 Sulfa [...] risk, benefits, and alternatives of a [place] paraesophageal hernia repair with mesh and fundoplication [...] engaged with Dr. Reeves of rheumatology at [place] Palpitations 03/30/2022 Positive DAREN (antinuclear antibody) 06/18/2021 [...] 10:30 AM EST Office Visit Adult Medicine [address] [phone] Belia Villavicencio MD Primary hypertension (Primary Dx); Giant cell arteritis with polymyalgia rheumatica (CMS/HCC); Panic disorder (episodic paroxysmal anxiety) 05/02/2024 Telephone Adult Medicine [facility] [address] [place] [phone] Belia Villavicencio MD Hypertension 04/24/2024 Telephone Adult [facility] [address] [place] [phone] Belia Villavicencio MD Return Call From Center/Facility 04/24/2024 Telephone [facility] [address] [facility] [address] [place] [address] [place] [phone] Olivia Montano NP 04/24/2024 Nurse Triage Adult [address] [address] Belia Villavicencio MD Bradycardia 04/18/2024 11:18 AM EST - 04/18/2024 11:59 PM EST Hospital Encounter CT Scan - [address] [address] Chronic nonintractable headache, unspecified headache type Discharge Disposition: Home or Self Care 04/17/[address] [address] Belia Villavicencio MD Faxed Order Mammogram and Ultrasound 04/12/2024 3:30 PM EST Office Visit Walk-In Clinic - [address] [phone] Sue Williamson NP Acute non-recurrent maxillary sinusitis (Primary Dx) 03/30/2024 12:29 PM EST - 03/30/2024 11:59 PM EST Hospital Encounter Radiology Department - [address] [phone] Submandibular gland mass Discharge Disposition: Home or Self Care 03/28/2024 2:30 PM EST Office Visit [address] [address] Belia Villavicencio MD Rheumatoid arthritis, involving unspecified site, unspecified whether rheumatoid factor present ([facility]) (Primary Dx); Primary hypertension; Celiac disease; Iron deficiency; Hypothyroidism, unspecified type; Submandibular gland mass; Rash 03/27/2024 1:30 PM EST Telemedicine [address] [address] Medicare annual wellness visit, subsequent (Primary Dx) 03/27/[address] [address] Mary Devries [place] Medicare Annual Wellness Visit Subsequent (AWV DUE 2024) 03/16/2024 Telephone Adult [facility] [address] [place] [phone] Belia Villavicencio MD Blood work; Labs Only 02/24/2024 9:20 AM EST Office Visit Gastroenterology - [place] [facility] 175 [facility] [address] [place] [phone] Sylvain Laws PA Celiac sprue (Primary Dx); History of repair of hiatal hernia; H/O chest pain; Gastroesophageal reflux disease with esophagitis without hemorrhage; Fatty liver; Bacterial infection due to H. pylori 02/17/2024 Telephone Pulmonology [facility] 299 [facility] [address] [place] [address] Guilherme Mojgan, [place] 02/16/2024 10:30 AM EST Office Visit Thoracic Surgery - [place] 299 [facility] [address] [place] [address] Srinath Ibarra PA Incarcerated paraesophageal hernia (Primary Dx) 02/16/2024 7:23 AM EST - 02/16/2024 11:59 PM EST Hospital Encounter [facility] Xray [address] [place] [phone] Diaphragmatic hernia with obstruction, without gangrene Discharge Disposition: Home or Self Care 02/14/2024 3:30 PM EST Office Visit Adult [facility] [address] [place] [phone] Belia Villavicencio MD Allergic drug rash due to non-narcotic analgesic (Primary Dx); Angioedema, subsequent encounter; Gastroesophageal reflux disease without esophagitis; Palpitations; Diarrhea, unspecified type from Last 3 Months Immunizations Name Administration [...] 06/16/2024 9:45 AM EDT Office Visit Adult [facility] [address] [place] [address] Belia Villavicencio MD [address] [place] [address] 09/29/2024 1:15 PM EDT Office Visit [facility] [address] [place] [phone] Belia Villavicencio MD [address] [place] [address] Health Maintenance Due Date Last Done Comments [...] this topic Medical Devices Implanted Type Area Asphalt Still Operator Device Identifier Shelf Expiration Date Model / Serial / Lot Sealant Fibrin Vistaseal 10ml - [id number] [facility] - [id number] Implanted:Qty: 1 on 01/18/2024 by Emily Ho MD at [facility] Hemostasis N/A: Abdomen [employer] [id number] 09/13/2025 [id number] / [id number] / [id number] Tissue Ovitex 1s Perm 6x10cm - [facility] - [id number] Implanted:Qty: 1 on 01/18/2024 by Emily Ho MD at [facility] Surgical Mesh Sling Implants N/A: Abdomen [employer]ARGY [employer] [id number] 07/05/2025 [id number] / NA / [id number] 1 Procedures Procedure Name Priority Date/Time Associated Diagnosis Comments CT HEAD WO CONTRAST Routine 04/18/2024 1 1:40 AM EST Chronic nonintractable headache, unspecified headache type POC INFLUENZA A/B Routine 04/13/2024 9:5 5 AM EST Acute non-recurrent maxillary sinusitis POC RAPID [id number], MOLECULAR Routine 04/13/2024 9:54 AM EST Acute [...] EST Diaphragmatic hernia with obstruction, without gangrene COMPREHENSIVE METABOLIC PANEL STAT 02/08/2024 11:50 PM EST LIPID PANEL Routine 09/20/2023 HM COLONOSCOPY Routine 10/07/2022 DXA BONE DENSITY STUDY 1+ SITS AXIAL SKEL Routine 03/05/2022 1:21 PM EST Encounter for screening for osteoporosis HM HEPATITIS C SCREENING Routine 09/18/2020 from Last [...] Signed Date: 04/18/2024 12:21 ET Workstation ID: [id number] Transcribed By: Self Edit Transcribed Date: 04/18/2024 [...] Signed Date: 04/18/2024 12:21 ET Workstation ID: [id number] Transcribed By: Self Edit Transcribed Date: 04/18/2024 11:58 ET Belia Villavicencio MD IMG CT PROCEDURES Final Result * POC Influenza A/B manually resulted (04/13/2024 9:55 AM EST) Rapid Influenza A AGN POC Negative Negative Rapid Influenza B AGN POC Negative Negative Swab 04/13/2024 9:55 AM EST Sue Williamson ROUTE CDL DRIVER POINT OF CARE TEST ENTER/EDIT ORDERABLES Final Result * Poc Rapid [id number], MOLECULAR (04/13/2024 9:54 AM EST) Pathologist [facility] COVID-19/SARS- COV-2 Rapid POC Negative Negative Swab Nasopharyngeal structure / Unknown 04/13/2024 9:54 AM EST Sue Williamson ROUTE CDL DRIVER POINT OF CARE TEST ENTER/EDIT ORDERABLES Final [...] Signed Date: 03/30/2024 13:21 ET Workstation ID: [id number] Transcribed By: Self Edit Transcribed Date: 03/30/2024 [...] Signed Date: 03/30/2024 13:21 ET Workstation ID: [id number] Transcribed By: Self Edit Transcribed Date: 03/30/2024 [...] Final Result [facility] [address] [place] [address], [place] [phone] * (ABNORMAL) Iron and TIBC (03/28/2024 3:27 [...] Final Result [facility] [address] [place] [address], [place] [phone] * Helicobacter pylori breath test (03/28/2024 3:27 PM EST) H Pylori Breath Test Negative Negative LAB CHEMISTRY METHOD 03/29/2024 11:27 AM EST [facility] Breath Oral cavity structure / Unknown Non-blood Collection / Unknown 03/28/2024 3:27 PM EST 03/28/2024 3:27 PM EST us Sylvain DAILY LAB BODY FLUIDS AND STOOLS LUIS FERNANDO DANIEL Final Result [facility] [address] [place] [address], [place] [phone] * XR Esophagram (02/16/2024 8:20 AM EST) [...] Signed Date: 02/16/2024 11:15 ET Workstation ID: [id number] Transcribed By: Self Edit Transcribed Date: 02/16/2024 10:59 ET Resident/PA/ROUTE CDL DRIVER: Nona Kapadia Narrative 02/16/2024 11:15 AM EST FINDINGS: Double contrast esophagram performed. COMPARISON: Esophagram January 19, 2024 HISTORY: Patient is a 68-year-old female one month status post hiatal hernia repair. Black Belt radiographs: 1 view chest radiograph demonstrates cardiac and mediastinal borders within normal limits. Lungs are clear bilaterally. There is elevation of the right hemidiaphragm, also seen on prior imaging from 2017. Aortic knob is calcified. There are moderate [...] female one month status post hiatalhernia repair. Black Belt radiographs: 1 view chest radiograph demonstrates cardiac andmediastinal borders within normal limits. Lungs are clear bilaterally.There is elevation of the right hemidiaphragm, also seen on prior imagingfrom 2017. Aortic knob is calcified. There are moderate [...] Lara Reviewed and Electronically Signed By: Osman Lraa Signed Date: 02/16/2024 11:15 ET Workstation ID: [id number] Transcribed By: Self Edit Transcribed Date: 02/16/2024 10:59 ET Resident/PA/ROUTE CDL DRIVER: Nona Kapadia us Emily Ho MD IMG FLUOROSCOPY PROCEDURES Final Result * (ABNORMAL) Comprehensive metabolic panel (02/08/2024 11:50 PM EST) Sodium 136 133 - 145 mmol/L LAB CHEMISTRY METHOD 02/09/2024 12:47 AM [facility] Potassium 3.2(L) 3.5 - 5.5 mmol/L LAB CHEMISTRY METHOD 02/09/2024 12:47 AM [facility] Chloride 104 96 - 110 mmol/L LAB CHEMISTRY METHOD 02/09/2024 12:47 AM [facility] CO2 21 21 - 32 mmol/L LAB CHEMISTRY METHOD 02/09/2024 12:47 AM [facility] Anion Gap 11 3 - 11 LAB CHEMISTRY METHOD 02/09/2024 12:47 AM [facility] Glucose 115(H) 70 - 100 mg/dL LAB CHEMISTRY METHOD 02/09/2024 12:47 AM [facility] BUN 7 5 - 25 mg/dL LAB CHEMISTRY METHOD 02/09/2024 12:47 AM [facility] Creatinine 0.66 0.50 - 1.10 mg/dL LAB CHEMISTRY METHOD 02/09/2024 12:47 AM [facility] eGFR 96 >=60 mL/min/1. 73m2 LAB CHEMISTRY METHOD 02/09/2024 12:47 AM [facility] Comment:Calculation based on the??Chronic Kidney Disease Epidemiology Collaboration (CKD-EPI) equation refit??without adjustment for race. BUN/Creatinine Ratio 10.6 LAB CHEMISTRY METHOD 02/09/2024 12:47 AM [facility] Calcium 9.3 8.5 - 10.5 mg/dL LAB CHEMISTRY METHOD 02/09/2024 12:47 AM [facility] AST (SGOT) 16 10 - 42 unit/L LAB CHEMISTRY METHOD 02/09/2024 12:47 AM [facility] ALT (SGPT) 23 10 - 60 unit/L LAB CHEMISTRY METHOD 02/09/2024 12:47 AM [facility] Alkaline Phosphatase 74 42 - 121 unit/L LAB CHEMISTRY METHOD 02/09/2024 12:47 AM [facility] Total Protein 7.2 6.0 - 8.0 g/dL LAB CHEMISTRY METHOD 02/09/2024 12:47 AM [facility] Albumin 3.7 3.2 - 5.0 g/dL LAB CHEMISTRY METHOD 02/09/2024 12:47 AM [facility] Total Bilirubin 0.2 0.0 - 1.4 mg/dL LAB CHEMISTRY METHOD 02/09/2024 12:47 AM [facility] Blood Venous blood specimen / Unknown Venipuncture / Unknown 02/08/2024 11:50 PM EST 02/09/2024 12:15 AM EST us Jeremiah Kaur MD LAB BLOOD ORDERABLES Final Resu lt [facility] [address] [place] [address], [place] [phone] * (ABNORMAL) Lipid panel (09/20/2023) LDL/HDL Ratio [...] Anatomical Region Laterality Modality Other Historical Provider MD HEALTH MAINTENANCE Final Result * DXA BONE [...] of fracture risk by FRAX. Caro DAILY IMG DXA PROCEDURES Final R esult * Hepatitis C Screening (09/18/2020) [facility] Hepatitis C Screening abstracted Historical Provider MD HEALTH MAINTENANCE Final Result from Last 3 Months or Most Recently Relevant to Health Maintenance Insurance [facility] MEDICARE [facility] MEDICAID - [place] Advance Directives Documents on File Type Date Recorded Patient Roller Embosser Expl anation Health Care Decision (hx) 01/09/2023 [...] Esteves Spouse Health Care Agent Care Teams Insole Tack Puller Hand Relationship Specialty Start Date End Date Belia Villavicencio MD [address] [place] [address] PCP - General Internal Medicine 01/17/24
--- OUTSIDE RECORDS SUMMARY | 2024-05-11 12:26 | XMS_ITS | Encounter Summary ---
Author Organization [facility] [place] [address] Care Team Providers Care Venetian Blind Installer Name Role Phone Belia Villavicencio MD Primary Care Prov ider Reason for Visit * Reason Onset Date Comments Return Call From Center/Facility 04/24/2024 Encounter Details Date Type Department Care Team ([facility] st Contact Info) Description 04/24/2024 Telephone Adult Medicine [facility] [address] [place] [phone] Belia Villavicencio MD [address] [place] [address] Return Call From Center/Facility Social History Tobacco [...] your loved ones. For example, child development associate teacher or elderly care for an older [...] from today. 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 from RADIOLOGY RN and states she called rn iv therapy and advised her to stop taking Atenolol to see if theres any changes documented in this encounter Plan of Treatment Upcoming Encounters Date Type Department Care Team (Late st Contact Info) Description 06/16/2024 9:45 AM EDT Office Visit Adult Medicine [address] [address] Belia Villavicencio MD [address] [place] [address] 09/29/2024 1:15 PM EDT Office Visit [address] [address] Belia Villavicencio MD [address] [place] [address] documented as of this encounter Visit Diagnoses Not on filedocumented in this encounter Additional Health Concerns Assessment Noted Time PHQ-9 Depression Total Score: 0 03/27/19 4:47 PM EST documented as of this encounter Care Teams Venetian Blind Installer Relationship Specialty Start Date End Date Belia Villavicencio MD [address] [place] [address] PCP - General Internal Medicine 01/17/24 documented as of this encounter
== END 2024-05-11 11:34 | disposition home or self-care (01) ==
PROVIDERS: PCP Internal Medicine; Visit Provider Student in an Organized Health Care Education/Training Program
DX: M31.6 Other giant cell arteritis (principal); Z79.52 Long term (current) use of systemic steroids; Z51.81 Encounter for therapeutic drug level monitoring; Z79.631 Long term (current) use of antimetabolite agent
CPT/HCPCS: 99215; G2211

== ENCOUNTER → 2024-05-11 10:26 | Outpatient (BNVA) | payer OTHER, SELFPAY | PROVIDERS: PCP Internal Medicine; Visit Provider Student in an Organized Health Care Education/Training Program | DX: M31.6 Other giant cell arteritis (principal); R51.9 Headache, unspecified; Z79.52 Long term (current) use of systemic steroids; Z51.81 Encounter for therapeutic drug level monitoring; Z79.631 Long term (current) use of antimetabolite agent | CPT/HCPCS: 99212 ==

== ENCOUNTER 2024-06-06 12:45 | Outpatient (REF) | payer OTHER, SELFPAY ==
--- NOTE | ~2024-06-06 | PE_ITS ---
EXAMINATION: FLUORINE-18 FDG PET/CT SCAN CLINICAL INFORMATION: Giant cell arteritis and large vessel vasculitis. TECHNIQUE: 58 minutes following the intravenous administration of 21.3 mCi of fluorine 18 FDG, images from the. Top of the vertex to toes were obtained using a combined PET/CT scanner with CT scan based attenuation correction. No oral or intravenous contrast was administered. Transverse, coronal, sagittal, and volume reconstruction projections were obtained. The patient's blood glucose as determined by a finger stick, was 88 mg/dL immediately prior to injection. The radiotracer was injected intravenously through left antecubital vein, without any complications. Total CT exam dose-length product 1025 mGy-cm. * These CT images were obtained using dose optimization techniques as appropriate, variously including the following: Automated exposure control * Adjustment of mA and/or kV according to patient size (this includes techniques or standardized protocols for targeted exams where dose is matched to indication/reason for exam; i.e. extremities or head) * Use of iterative reconstruction technique COMPARISON: None available. FINDINGS: HEAD AND NECK: No abnormal radiotracer uptake activity seen in the carotid arteries. Nonspecific activity seen in the hypopharynx and oral cavity likely excreted isotope activity. No large intracranial hemorrhage, acute territorial infarct or significant shift of midline structures. CHEST: Ports and Devices: None Lungs: No abnormal radiotracer uptake. Pleura: No significant pleural effusion. Lymph Nodes: No tracer-avid mediastinal, hilar or internal mammary or axillary lymphadenopathy. Mediastinum: Abnormal activity seen in the thoracic aorta or subclavian arteries. A three-vessel branching of the aortic arch is noted. Breasts/Chest Wall: No abnormal radiotracer uptake. ABDOMEN/PELVIS: Liver/Biliary System: No focal tracer-avid liver lesion. The gallbladder appears unremarkable. Pancreas: Unremarkable. Spleen: No abnormal radiotracer uptake. No evidence of splenomegaly. Adrenal Glands: No abnormal radiotracer uptake. Kidneys: No hydronephrosis, hydroureter or renal calculi bilaterally. Bowel: There is no significant bowel dilatation to suggest obstruction. Lymph Nodes: No tracer avid retroperitoneal, mesenteric or pelvic and/or groin lymphadenopathy. Pelvic Organs: The urinary bladder is underdistended. MUSCULOSKELETAL: No abnormal metabolic activity seen VASCULAR: No abnormal metabolic seen in the abdominal aorta, iliac vessels are the branches. Bilateral lower extremity. There is mild activity seen in bilateral superficial femoral, popliteal and tibial veins. Not typical of giant cell arteritis. PET/PET CT fusion whole body IMPRESSION: No abnormal vascular FDG activity seen in the neck, chest, abdomen and pelvis suspicious of giant cell arteritis. Mild activity seen in the superficial femoral, popliteal and tibial veins is nonspecific and can be seen in a normal PET study. Electronically signed by: Luis Mckeon MD 06/12/2024 04:08 PM EDT RP
--- OUTSIDE RECORDS SUMMARY | 2024-06-06 14:51 | XMS_ITS | Encounter Summary ---
Author Organization [facility] [place] [address] Care Team Providers Care Farmer Cash Grain Name Role Phone Belia Villavicencio MD Primary Care Prov ider Reason for Referral * Imaging (Routine) - Pending Review Specialty Diagnoses / Procedures Referred By Moon hendrickson Referred To Contact Cardiology Diagnoses Primary hypertension Cardiomegaly Procedures Transthoracic echocardiogram (TTE) complete with PRN contrast, bubble, strain, and 3D order panel AK TTE W 2D IMAGE COMPLETE W DOPPLER ECHO & COLOR FLOW DOPPLER ECHO AK BURAK 2D COMPLETE W/CONTRAST OR W & WO CONTRAST WITH DOPPLER Srinath Mercado MD [address] [place] [address] Phone: tel: fax: [facility] Referral ID Status Reason Start Date Expiration Date V isits Requested Visits Authorized [id number] Pending Review 06/05/2024 06/05/2025 1 1 Reason for Visit * Reason Comments Follow-up Encounter Details Date Type Department Care Team ([facility] st Contact Info) Description 06/05/2024 9:20 AM EDT Office Visit [facility] [address] [facility] [address] [place] [id number] Srinath Mercado MD [address] [facility] [address] [place] [address] Primary hypertension (Primary Dx); Cardiomegaly; Hypercholesteremia Social History Tobacco Use Types Packs/Day Years [...] Sign Reading Time Taken Comments Blood Pressure 140/80 06/05/2024 9:39 AM EDT Pulse 62 06/05/2024 9:39 AM EDT Temperature - - Respiratory Rate - - Oxygen Saturation 97% 06/05/2024 9:39 AM EDT Inhaled Oxygen Concentration - - Weight 78 kg (172 lb) 06/05/2024 9:39 AM EDT Height 157.5 cm (5' 2 ) 06/05/2024 9:39 AM EDT Body Mass Index 31.46 06/05/2024 9:39 AM EDT documented in this encounter Progress Notes * Srinath Mercado MD - 06/05/2024 9:20 AM EDTAssociated Problem(s): Hypertension Orders: Transthoracic echocardiogram (TTE) complete with PRN contrast, bubble, strain, and 3D order panel; Future * Srinath Mercado MD - 06/05/2024 9:20 AM EDTAssociated Problem(s): Hypercholesteremia * Srinath Mercado MD - 06/05/2024 9:20 AM EDT Images from the original note were not included. [facility] Cardiology Follow-up Note PCP: Belia Villavicencio MD HPI: Marni Esteves is a 68 y.o. old female with history of HTN and palpitations. She was seen back in 2022, for palptiations she had monitoring done at that time which was unremarkable. She has had recent episodes of significant HTN in setting of steroid use for giant cell arteritis. Patient statesBP have been improving and she has been tapered down on the steroid. Denies any significant cardiacconditions at this time. States she had an episode of acute chest pain a few months ago. Was seen in ED troponin was normal with unremarkable ECG. She has not had any recurrence of the pain since then. She had CT of her chest showing mild aortic atherosclerosis and reports of cardiomegaly. ACTIVE MEDICATIONS: Outpatient Medications Marked as Taking for the 06/05/24 encounter (Office Visit) with Srinath Mitchell MD Medication Sig Dispense Refill atenoloL (TENORMIN) 25 mg tablet Take 0.5 tablets (12.5 mg total) by mouth 1 (one) time each day. calcium citrate-vitamin D (CITRACAL+D) 315 mg-5 mcg (200 unit) per tablet Take 1 tablet by mouth 1 (one) time each day. [...] BY MOUTH EVERY DAY 90 tablet 1 folic acid (FOLVITE) 1 mg tablet Take by mouth 1 (one) time each day. levothyroxine (SYNTHROID, LEVOTHROID) 100 mcg tablet Take 1 tablet (100 mcg total) by mouth 1 (one)time each day before breakfast. 90 tablet 1 lisinopriL (PRINIVIL,ZESTRIL) 5 mg tablet Take 1 tablet (5 mg total) by mouth 1 (one) time each day. 30 each 5 methotrexate 2.5 mg tablet Take 6 tablets (15 mg total) by mouth 1 (one) time per week predniSONE (DELTASONE) 1 mg tablet Take 1 tablet (1 mg total) by mouth 1 (one) time each day. spironolactone (Aldactone) 50 mg tablet Take 1 tablet (50 mg total) by mouth 1 (one) time each day.30 each 11 PAST MEDICAL HISTORY: Patient Active Problem List Diagnosis Anemia Rheumatoid arthritis (CMS/HCC) GERD (gastroesophageal reflux disease) Giant cell arteritis with polymyalgia rheumatica (CMS/HCC) Hypercholesteremia Hypertension Hypothyroid Incarcerated paraesophageal hernia Lumbago Obesity (BMI 30.0-34.9) Obstructive sleep apnea Palpitations Panic disorder Positive DAREN (antinuclear antibody) Radiculitis, lumbosacral Celiac disease ALLERGIES: Allergies Allergen Reactions Hydralazine Cardiac Issue Severe chest pain Zmilglm-Hnr-Sfr Reductase Inhibitors Muscular Issues Gluten Itching and GI intolerance Sulfa (Sulfonamide Antibiotics) Rash FAMILY HISTORY: Family History Problem Relation Name Age of Onset Hypertension Mother Anxiety disorder Mother Arthritis Mother Stroke Father Other cancer Sister Rheum arthritis Sister Rheum arthritis Sister Other (ca oral) Brother Other (glutin senitive) Daughter No Known Problems Son SOCIAL HISTORY: Social History Tobacco Use Smoking status: Former Current packs/day: 0.00 Types: Cigarettes Quit date: 1998 Years since quittin.2 Smokeless tobacco: Never Tobacco comments: QUIT SMOKING 1998 Substance Use Topics Alcohol use: Yes Comment: rarely- red wine PHYSICAL EXAM: Vitals: 06/05/24 0939 BP: (!) 140/80 Pulse: 62 SpO2: 97% Weight: 78 kg (172 lb) Height: 1.575 m (62 ) Gen: Stated age, well nourished, sitting up NAD HEENT: MMM no LAD, no JVD Pulm: non-labored, CTAB, no wheezing Heart: RRR, no m/g/r Abd: Soft NT/ND, +BS, no tenderness Extrem: no c/c/e, no ulcers on LE Skin: no rashes Vasc: 2+ RP no carotid bruit Neuro: Alert oriented x 3, UE strength symmetric intact Psych: Mood good, Affect congruent EKG: Encounter Date: 05/23/24 ECG 12 lead Result Value Ventricular Rate ECG 54 Atrial Rate 54 P-R Interval 184 QRS Duration 70 Q-T Interval 400 QTc 379 P Wave Hyden 2 R Hyden 4 T Hyden 39 ECG Interpretation Sinus bradycardia Possible Inferior infarct , age undetermined Abnormal ECG When compared with ECG of 09-FEB-2024 02:06, AK interval has decreased Vent. rate has decreased BY 31 BPM Nonspecific T wave abnormality no longer evident in Inferior leads QT has shortened Confirmed by MD Rogelio, [place] ([id number]) on 05/24/2024 10:19:54 AM *Note: Due to a large number of results and/or encounters for the requested time period, some results have not been displayed. A complete set of results can be found in Results Review. TESTING: Lab Results Component Value Date CHOL 275 (A) 09/20/2023 TRIG 245 (A) 09/20/2023 LDL 166 (A) 09/20/2023 HDL 60 09/20/2023 ASSESSMENT/PLAN: Assessment & Plan Primary hypertension Orders: Transthoracic echocardiogram (TTE) complete with PRN contrast, bubble, strain, and 3D order panel; Future Cardiomegaly Orders: Transthoracic echocardiogram (TTE) complete with PRN contrast, bubble, strain, and 3D order panel; Future Hypercholesteremia Cardiomegaly Suspect related to hypertensive heart changes. Will check echo. If unremarkable other than minor enlargement would not do further testing. HTN BP higher in setting of steroids improving per her report. Would contiue to monitor. If they do notnormalize would increase lisinopril dosing. Hyperlipidemia Has some mild aortic atherosclerosis Would consider adding statin therapy (low dose crestor 5 mg toavoid muscle issues) if LDL remains high. The [facility] team will continue to co-manage this patient following the plan of care as established by my initial visit and as per AHA guidelines for ongoing management and surveillance of above listed conditions. This will include medication titration, initiation of appropriate medications and further t itration, and diagnostic studies to manage this disease process. documented in this encounter Plan of Treatment Upcoming Encounters Date Type Department Care Team (Late st Contact Info) Description 06/16/2024 9:45 AM EDT Office Visit Adult Medicine [facility] [address] [place] [address] Belia Villavicencio MD [address] [place] [address] 06/27/2024 10:00 AM EDT Ancillary Procedure [facility] [address] [place] [address] 09/29/2024 1:15 PM EDT Office Visit [facility] [address] [place] [address] Belia Villavicencio MD [address] [place] [address] Scheduled Orders Name Type Priority Associated Diagnoses Order Schedule Transthoracic echocardiogram (TTE) complete with PRN contrast, bubble, strain, and 3D order panel Echocardiography Routine Primary hypertension Cardiomegaly 1 Occurrences starting 06/05/2024 until 06/05/2025 documented as of this encounter Visit Diagnoses Diagnosis Primary hypertension- Primary Unspecified essential hypertension Cardiomegaly Hypercholesteremia Pure hypercholesterolemia documented in this encounter Additional Health Concerns Assessment Noted Time PHQ-9 Depression Total Score: 0 03/27/19 4:47 PM EST documented as of this encounter Care Teams Farmer Cash Grain Relationship Specialty Start Date End Date Belia Villavicencio MD [address] [place] [address] PCP - General Internal Medicine 01/17/24 documented as of this encounter
--- OUTSIDE RECORDS SUMMARY | 2024-06-06 14:51 | XMS_ITS | Clinical Summary ---
Author Organization [facility] Address [address] [place] [address] Phone Care Team Providers Care Buyer Grain Name Role Phone Belia Villavicencio MD Primary Care Prov ider Allergies Active Allergy Reactions Criticality Noted Date Comments Gluten Itching,GI intolerance 01/03/2024 Hydralazine Cardiac Issue High 02/16/2024 Severe chest pain Hepqwwz-Xgi-Pvg Reductase Inhibitors Muscular Issues High 01/08/2023 Sulfa [...] 30 each 11 4 02/14/20 25 Active ferrous sulfate 325 mg (65 mg elemental iron) tablet TAKE 1 TABLET BY MOUTH EVERY DAY 90 tablet 1 5 Active lisinopriL (PRINIVIL,ZEST RIL) 5 mg tablet Take 1 tablet (5 mg total) by mouth 1 (one) time each day. 30 each 5 5 05/05/19 26 Active clonazePAM (KlonoPIN) 0.5 mg tabletIndicati ons:Panic disorder (episodic paroxysmal anxiety) Take 1 tablet (0.5 mg total) by mouth 3 (three) times a day. Max Daily Amount: 1.5 mg 90 tablet 2 5 Active predniSONE (DELTASONE) 1 mg tablet Take 1 tablet (1 mg total) by mouth 1 (one) time each day. 4 Active methotrexate 2.5 mg tablet Take 6 tablets (15 mg total) by mouth 1 (one) time per week 5 Active folic acid (FOLVITE) 1 mg tablet Take by mouth 1 (one) time each day. Active calcium citrate-vitami n D (CITRACAL+D) 315 mg-5 mcg (200 unit) per tablet Take 1 tablet by mouth 1 (one) time each day. Active levothyroxine (SYNTHROID, LEVOTHROID) 100 mcg tablet Take 1 tablet (100 mcg total) by mouth 1 (one) time each day before breakfast. 90 tablet 1 5 Active levothyroxine (SYNTHROID, LEVOTHROID) 100 mcg tablet Take 1 tablet (100 mcg total) by mouth 1 (one) time each day before breakfast. 90 tablet 5 06/03/19 25 Discontinued Active Problems Problem Noted Date Diagnosed Date [...] engaged with Dr. Reeves of rheumatology at [facility] Palpitations 03/30/2022 Positive DAREN (antinuclear antibody) 06/18/2021 Obesity (BMI 30.0-34.9) 06/17/2021 Obstructive sleep apnea 06/17/2021 Overview (01/11/2024): Using CPAP (June 2021) Lumbago 10/29/2009 Radiculitis, lumbosacral 10/29/2009 Anemia 10/04/2009 Rheumatoid arthritis 10/04/2009 Hypercholesteremia 10/04/2009 Assessment & Plan (06/05/2024 10:57 AM EDT): Hypertension 10/04/2009 Assessment & Plan (06/05/2024 10:57 AM EDT): Orders: Transthoracic echocardiogram (TTE) complete with PRN contrast, bubble, strain, and 3D order panel; Future Hypothyroid 10/04/2009 Panic disorder 10/04/2009 Resolved Problems [...] Encounters Date Type Department Care Team Description 06/05/2024 9:20 AM EDT Office Visit [facility] - [address] [place] [address] Srinath Mercado MD Primary hypertension (Primary Dx); Cardiomegaly; Hypercholesteremia 06/01/2024 1:40 PM EDT Office Visit Gastroenterology - [place] [address] [facility] [address] [facility] [address] [place] [address] Sylvain Laws PA History of repair of hiatal hernia (Primary Dx); Diverticulosis; PMR (polymyalgia rheumatica) (CMS/HCC); Rheumatoid arthritis with positive rheumatoid factor, involving unspecified site (CMS/HCC); Celiac disease; Gassiness; Burping 05/23/2024 9:12 AM EDT - 05/23/2024 12:26 PM EDT Emergency [facility] Emergency [address] [place] [phone] Corey Wharton MD Asymptomatic hypertension (Primary Dx) Discharge Disposition: Home or Self Care 05/05/2024 10:30 AM EST Office Visit Adult Medicine [address] [phone] Belia Villavicencio MD Primary hypertension (Primary Dx); Giant cell arteritis with polymyalgia rheumatica ([facility]); Panic disorder (episodic paroxysmal anxiety) 05/02/2024 Telephone Adult Medicine [address] [phone] Belia Villavicencio MD Hypertension 04/24/2024 Telephone Adult Medicine [address] [phone] Belia Villavicencio MD Return Call From Center/Facility 04/24/2024 Telephone [facility] - [address] [place] [phone] Olivia Montano NP 04/24/2024 Nurse Triage Adult [address] [phone] Belia Villavicencio MD Bradycardia 04/18/2024 11:18 AM EST - 04/18/2024 11:59 PM EST Hospital Encounter CT Scan - [place] [id number] [place] [address] Chronic nonintractable headache, unspecified headache type Discharge Disposition: Home or Self Care 04/17/2024 Telephone Adult [address] [phone] Belia Villavicencio MD Faxed Order Mammogram and Ultrasound 04/12/2024 3:30 PM EST Office Visit [facility] - [place] [address] [place] [phone] Sue Williamson NP Acute non-recurrent maxillary sinusitis (Primary Dx) 03/30/2024 12:29 PM EST - 03/30/2024 11:59 PM EST Hospital Encounter Radiology Department - [address] [phone] Submandibular gland mass Discharge Disposition: Home or Self Care 03/28/2024 2:30 PM EST Office Visit Adult [address] [phone] Belia Villavicencio MD Rheumatoid arthritis, involving unspecified site, unspecified whether rheumatoid factor present ([facility]) (Primary Dx); Primary hypertension; Celiac disease; Iron deficiency; Hypothyroidism, unspecified type; Submandibular gland mass; Rash 03/27/2024 1:30 PM EST Telemedicine [address] [phone] Medicare annual wellness visit, subsequent (Primary Dx) 03/27/[address] [phone] Mary Devries [place] Medicare Annual Wellness Visit Subsequent (AWV DUE 2024) 03/16/[address] [phone] Belia Villavicencio MD Blood work; Labs Only from Last 3 Months Immunizations Name Administration [...] for your loved ones. For example, children's counselor or elderly care for an older [...] Pulse 62 06/05/2024 9:39 AM EDT Temperature 36.2 ??C (97.2 ??F) 05/23/2024 10:15 AM E DT Respiratory Rate 16 05/23/2024 10:15 AM EDT Oxygen Saturation 97% 06/05/2024 9:39 AM EDT Inhaled Oxygen Concentration - - Weight 78 kg (172 lb) 06/05/2024 9:39 AM EDT Height 157.5 cm (5' 2 ) 06/05/2024 9:39 AM EDT Body Mass Index 31.46 06/05/2024 9:39 AM EDT Plan of Treatment Upcoming Encounters Date Type Department Care Team (Late st Contact Info) Description 06/16/2024 9:45 AM EDT Office Visit Adult Medicine [facility] [address] [place] [address] Belia Villavicencio MD [address] [place] [address] 06/27/2024 10:00 AM EDT Ancillary Procedure [facility] - [facility] [address] [facility] [address] [place] [phone] 09/29/2024 1:15 PM EDT Office Visit [facility] [address] [place] [address] Belia Villavicencio MD [address] [place] [address] Health Maintenance Due Date Last Done Comments [...] 2023 , 01/28/2021, 04/04/2020, Additional history exists Depression Screening 03/27/2025 03/27/2024 Falls Risk Assessment 03/27/2025 03/27/2024, 024 Medicare Annual Wellness Visit 03/27/2025 03/27/2024 Social Influencers of Health Screening 03/27/2025 03/27/2024 Hypertension/CHF/CAD Annual BMP Blood Test 05/23/2025 05/23/2024, 02/08/2024, 01/19/2024, Additional history exists Cholesterol Screening (Lipid Panel) 09/19/2028 09/20/2023, 09/20/2023 Osteoporosis Screening (Bone Density Screening) 03/05/2032 03/05/2022 Colorectal Cancer Screening: Colonoscopy 10/07/2032 10/07/2022 Hepatitis C Screening Completed 09/18/2020 HIB Vaccines Aged Out No longer eligi [...] this topic Medical Devices Implanted Type Area Dye Tub Tender Device Identifier Shelf Expiration Date Model / Serial / Lot Sealant Fibrin Vistaseal 10ml - [id number] - [id number] Implanted:Qty: 1 on 01/18/2024 by Emily Ho MD at [facility] Hemostasis N/A: Abdomen [employer] [id number] 09/13/2025 [id number] / [id number] / [id number] Tissue Ovitex 1s Perm 6x10cm - [facility]ly [facility] - [id number] Implanted:Qty: 1 on 01/18/2024 by Emily Ho MD at [facility] Surgical Mesh Sling Implants N/A: Abdomen eYeka [id number] 07/05/2025 [id number] / NA / [id number] 1 Procedures Procedure Name Priority Date/Time Associated Diagnosis Comments ECG ANNOTATED 05/26/2024 MAGNESIUM STAT 05/23/2024 11:17 AM EDT BASIC METABOLIC PANEL STAT 05/23/2024 11:17 AM EDT ECG 12-LEAD STAT 05/23/2024 9:55 AM EDT CBC WITH AUTO DIFFERENTIAL STAT 05/23/2024 9:25 AM EDT CBC AND DIFFERENTIAL STAT 05/23/2024 9:[address] HEAD WO CONTRAST Routine 04/18/2024 1 1:40 AM EST Chronic nonintractable headache, unspecified headache type POC INFLUENZA A/B Routine 04/13/2024 9:5 5 AM EST Acute non-recurrent maxillary sinusitis POC RAPID [id number], MOLECULAR Routine 04/13/2024 9:54 AM EST Acute [...] liver Bacterial infection due to H. pylori LIPID PANEL Routine 09/20/2023 COLONOSCOPY Routine 10/07/2022 DXA BONE DENSITY STUDY 1+ SITS AXIAL SKEL Routine 03/05/2022 1:21 PM EST Encounter for screening for osteoporosis HEPATITIS C SCREENING Routine 09/18/2020 from Last 3 Months or Most Recently Relevant to Health Maintenance Results * ECG-Annotated (05/26/2024) us Provider Onbase MD ECG ORDERABLES Final Result * Magnesium (05/23/2024 11:17 AM EDT) Pathologist [facility] Magnesium 2.0 1.9 - 2.6 mg/dL LAB CHEMISTRY METHOD 05/23/2024 11:48 AM EDT [facility] Blood Venous blood specimen / Unknown Venipuncture / Unknown 05/23/2024 11:17 AM EDT 05/23/2024 11:21 AM EDT Corey Wharton MD LAB BLOOD ORDERABLES Molly l Result [facility] [address] [place] [address], [place] [phone] * (ABNORMAL) Basic metabolic panel (05/23/2024 11:17 AM EDT) Pathologist [facility] Sodium 129(L) 133 - 145 mmol/L LAB CHEMISTRY METHOD 05/23/2024 11:53 AM EDT [facility] Potassium 4.3 3.5 - 5.5 mmol/L LAB CHEMISTRY METHOD 05/23/2024 11:53 AM EDT [facility] Chloride 95(L) 96 - 110 mmol/L LAB CHEMISTRY METHOD 05/23/2024 11:53 AM EDT [facility] CO2 24 21 - 32 mmol/L LAB CHEMISTRY METHOD 05/23/2024 11:53 AM [facility] Anion Gap 10 3 - 11 LAB CHEMISTRY METHOD 05/23/2024 11:53 AM [facility] Glucose 101(H) 70 - 100 mg/dL LAB CHEMISTRY METHOD 05/23/2024 11:53 AM [facility] BUN 16 5 - 25 mg/dL LAB CHEMISTRY METHOD 05/23/2024 11:53 AM [facility] Creatinine 0.59 0.50 - 1.10 mg/dL LAB CHEMISTRY METHOD 05/23/2024 11:53 AM [facility] eGFR 98 >=60 mL/min/1. 73m2 LAB CHEMISTRY METHOD 05/23/2024 11:53 AM [facility] Comment:Calculation based on the??Chronic Kidney Disease Epidemiology Collaboration (CKD-EPI) equation refit??without adjustment for race. BUN/Creatinine Ratio 27.1 LAB CHEMISTRY METHOD 05/23/2024 11:53 AM [facility] Calcium 9.3 8.5 - 10.5 mg/dL LAB CHEMISTRY METHOD 05/23/2024 11:53 AM [facility] Blood Venous blood specimen / Unknown Venipuncture / Unknown 05/23/2024 11:17 AM EDT 05/23/2024 11:21 AM EDT us Corey Wharton MD LAB BLOOD ORDERABLES Molly l Result [facility] [address] [place] [address], * ECG 12 lead (05/23/2024 9:55 AM EDT) Ventricular Rate ECG 54 BPM GEMUSE Atrial Rate 54 BPM GEMUSE P-R Interval 184 ms GEMUSE QRS Duration 70 ms GEMUSE Q-T Interval 400 ms GEMUSE QTc 379 ms GEMUSE P Wave [place] 2 degrees GEMUSE R [place] 4 degrees GEMUSE T [place] 39 degrees GEMUSE ECG Interpretation Sinus bradycardia Possible Inferior infarct , age undetermined Abnormal ECG When compared with ECG of 09-FEB-2024 02:06, HI interval has decreased Vent. rate has decreased BY ??31 BPM Nonspecific T wave abnormality no longer evident in Inferior leads QT has shortened Confirmed by MD Rogelio, Srinath ([id number]) on 05/24/2024 10:19:54 AM GEMUSE 05/23/2024 9:55 AM EDT 05/24/2024 10:19 AM EDT us Corey Wharton MD ECG ORDERABLES Final Res ult GEMUSE * (ABNORMAL) CBC auto differential (05/23/2024 9:25 AM EDT) WBC 13.2(H) 4.8 - 10.8 K/mcL LAB HEMETOLOGY METHOD 05/23/2024 10:46 AM [facility] RBC 5.00(H) 3.80 - 4.80 M/mcL LAB HEMETOLOGY METHOD 05/23/2024 10:46 AM [facility] Hemoglobin 13.7 11.5 - 16.0 g/dL LAB HEMETOLOGY METHOD 05/23/2024 10:46 AM [facility] Hematocrit 41.0 35.0 - 47.0 % LAB HEMETOLOGY METHOD 05/23/2024 10:46 AM [facility] MCV 82.0 79.0 - 98.0 FL LAB HEMETOLOGY METHOD 05/23/2024 10:46 AM [facility] MCH 27.4 27.0 - 32.0 pcg LAB HEMETOLOGY METHOD 05/23/2024 10:46 AM [facility] MCHC 33.4 32.0 - 37.0 g/dL LAB HEMETOLOGY METHOD 05/23/2024 10:46 AM [facility] RDW 15.2(H) 11.0 - 15.0 % LAB HEMETOLOGY METHOD 05/23/2024 10:46 AM [facility] Platelets 377 130 - 400 K/mcL LAB HEMETOLOGY METHOD 05/23/2024 10:46 AM [facility] MPV 10.9 7.0 - 11.0 FL LAB HEMETOLOGY METHOD 05/23/2024 10:46 AM [facility] NRBC 0.0 <1.0 % LAB HEMETOLOGY METHOD 05/23/2024 10:46 AM [facility] NRBC Absolute 0.00 <0.10 K/mcL LAB HEMETOLOGY METHOD 05/23/2024 10:46 AM [facility] Neutrophils Relative 73.4 % LAB HEMETOLOGY METHOD 05/23/2024 10:46 AM [facility] Lymphocytes Relative 18.9 % LAB HEMETOLOGY METHOD 05/23/2024 10:46 AM [facility] Monocytes Relative 6.2 % LAB HEMETOLOGY METHOD 05/23/2024 10:46 AM [facility] Eosinophils Relative 0.2 % LAB HEMETOLOGY METHOD 05/23/2024 10:46 AM [facility] Basophils Relative 0.2 % LAB HEMETOLOGY METHOD 05/23/2024 10:46 AM [facility] Immature Granulocytes Relative 1.1 % LAB HEMETOLOGY METHOD 05/23/2024 10:46 AM [facility] Neutrophils Absolute 9.66(H) 1.50 - 7.00 K/mcL LAB HEMETOLOGY METHOD 05/23/2024 10:46 AM [facility] Lymphocytes Absolute 2.48 1.00 - 5.00 K/mcL LAB HEMETOLOGY METHOD 05/23/2024 10:46 AM EDT [facility] Monocytes Absolute 0.81 0.20 - 1.00 K/mcL LAB HEMETOLOGY METHOD 05/23/2024 10:46 AM EDT [facility] Eosinophils Absolute 0.03 0.00 - 0.50 K/mcL LAB HEMETOLOGY METHOD 05/23/2024 10:46 AM EDT [facility] Basophils Absolute 0.03 0.00 - 0.20 K/[facility] LAB HEMETOLOGY METHOD 05/23/2024 10:46 AM EDT [facility] Immature Granulocytes Absolute 0.14(H) 0.00 - 0.03 K/[facility] HEMETOLOGY METHOD 05/23/2024 10:46 AM EDT [facility] Blood Venous blood specimen / Unknown Venipuncture / Unknown 05/23/2024 9:25 AM EDT 05/23/2024 10:35 AM EDT us Corey Wharton MD LAB BLOOD ORDERABLES Molly claire Result [facility] [address] [place] [address], * CT Head wo Contrast (04/18/2024 11:40 [...] Signed Date: 04/18/2024 12:21 ET Workstation ID: [id number] Transcribed By: Self Edit Transcribed Date: 04/18/2024 [...] Signed Date: 04/18/2024 12:21 ET Workstation ID: [id number] Transcribed By: Self Edit Transcribed Date: 04/18/2024 11:58 ET us Belia Villavicencio MD IMG CT PROCEDURES Final Result * POC Influenza A/B manually resulted (04/13/2024 9:55 AM EST) Rapid Influenza A AGN POC Negative Negative Rapid Influenza B AGN POC Negative Negative Swab 04/13/2024 9:55 AM EST Sue Williamson RESOURCE ECONOMIST POINT OF CARE TEST ENTER/EDIT ORDERABLES Final Result * Poc Rapid [id number], MOLECULAR (04/13/2024 9:54 AM EST) COVID-19/SARS- COV-2 Rapid POC Negative Negative Swab Nasopharyngeal structure / Unknown 04/13/2024 9:54 AM EST us Sue Williamson RESOURCE ECONOMIST POINT OF CARE TEST ENTER/EDIT ORDERABLES Final [...] Signed Date: 03/30/2024 13:21 ET Workstation ID: [id number] Transcribed By: Self Edit Transcribed Date: 03/30/2024 [...] Signed Date: 03/30/2024 13:21 ET Workstation ID: [id number] Transcribed By: Self Edit Transcribed Date: 03/30/2024 13:20 ET Belia Villavicencio MD IMG US PROCEDURES Final Result * Thyroid stimulating hormone with reflex to free t4 and free t3 (03/28/2024 3:27 PM EST) Pathologist [facility] TSH 1.42 0.40 - 4.00 mcIU/mL LAB CHEMISTRY METHOD 03/28/2024 6:38 PM EST [facility] Blood Venous blood specimen / Unknown Venipuncture / Unknown 03/28/2024 3:27 PM EST 03/28/2024 3:27 PM EST Belia Villavicencio MD LAB BLOOD ORDERABL ES Final Result [facility] [address] [place] [address], [place] [phone] * (ABNORMAL) Iron and TIBC (03/28/2024 3:27 [...] Final Result [facility] [address] [place] [address], [place] [phone] * Helicobacter pylori breath test (03/28/2024 3:27 PM EST) Pathologist [facility] H Pylori Breath Test Negative Negative LAB CHEMISTRY METHOD 03/29/2024 11:27 AM EST [facility] Breath Oral cavity structure / Unknown Non-blood Collection / Unknown 03/28/2024 3:27 PM EST 03/28/2024 3:27 PM EST Sylvain [facility] BODY FLUIDS AND STOOLS LUIS FERNANDO DANIEL Final Result Performing Organization Address City/[facility]/ZIP Co de Phone Number [facility] [address] [place] [address], [place] [phone] * (ABNORMAL) Lipid panel (09/20/2023) Pathologist [facility] LDL/HDL Ratio 5(A) 0 - 4 Triglycerides [...] classified as having normal bone density. [facility] Department of Internal Medicine recommends using [...] classified as having normal bone density. [facility] Department of Internal Medicine recommendsusing National [...] R esult * Hepatitis C Screening (09/18/2020) [facility] Hepatitis C Screening abstracted Historical Provider HEALTH MAINTENANCE Final Result from Last 3 Months or Most Recently Relevant to Health Maintenance Insurance [place]ICA[place] [employer] MEDICARE Advance Directives Documents on File Type Date Recorded Patient Director Of Special Services Expl anation Health Care Decision (hx) 01/09/2023 [...] Esteves Spouse Health Care Agent Care Teams Buyer Grain Relationship Specialty Start Date End Date Belia Villavicencio MD [address] [place] [id number] PCP - General Internal Medicine 01/17/24
--- OUTSIDE RECORDS SUMMARY | 2024-06-06 14:51 | XMS_ITS | Clinical Summary ---
Author Organization [facility] Address [address] [place] [address] Care Team Providers Care Laborer Hoisting Name Role Phone Urvashi Paredes NP Primary [...] age to complete this topic Care Teams Laborer Hoisting Relationship Specialty Start Date End Date Urvashi Paredes, FORMING MACHINE UPKEEP MECHANIC HELPER [address] [place] [id number] PCP - General Nurse Practitioner 08/10/20
--- OUTSIDE RECORDS SUMMARY | 2024-06-06 14:51 | XMS_ITS | Patient Health Record ---
Author Organization [facility] Address [address] [facility] [facility] [address] [place] [address] Care Team Providers Care Registered Medical Transcriptionist Name Role Phone SHANIQUA FERNANDEZ MD Primary Care Provider Unavail able Heena Brasher Unavailable [phone] Reason For Referral No Information Medications Medication [...]
--- OUTSIDE RECORDS SUMMARY | 2024-06-06 14:51 | XMS_ITS | Encounter Summary ---
Author Organization [facility] [address] Care Team Providers Care Home Health Assistant Name Role Phone Belia Villavicencio MD Primary Care Prov ider Reason for Visit * Reason Comments Gas Encounter Details Date Type Department Care Team ([facility] st Contact Info) Description 06/01/2024 1:40 PM EDT Office Visit Gastroenterology - [place] [address] [facility] [address] [facility] [address] [place] [id number] Sylvain Laws PA [address] [facility] [address] [place] [address] History of repair of hiatal hernia (Primary Dx); Diverticulosis; PMR (polymyalgia rheumatica) (CMS/HCC); Rheumatoid arthritis with positive rheumatoid factor, involving unspecified site (CMS/HCC); Celiac disease; Gassiness; Burping Social History Tobacco Use Types Packs/Day Years [...] for your loved ones. 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 * Celiac Disease (Swiss) * Gluten-Free Diet (Swiss) * Diverticulosis (Swiss) * Diverticulosis and Diverticulitis: General Info (Swiss) * Gas and Bloating (Swiss) * Polymyalgia Rheumatica (Swiss) * Rheumatoid Arthritis (RA) (Swiss) * Dyspepsia (Swiss) documented in this encounter Progress Notes * ABIMBOLA Amaya - 06/01/2024 1:40 PM EDT Patient returns for follow up of burping, dyspepsia, celiac as well as bloating. Does have issues with PMR and rheurmatoid arthritis. Patient does have a fatty liver and will be set up in july for US and labs. Patient has recently been started on prednisone and methotrexate and aware that these can irritate the stomach. Patient should eat prior to takinbg the medication. Is aware that there are medications that can also affect the celiac and cause some changes in her stool. She can use simethicone to help with the gassiness. If she has occasional dyspepsia she can use pepcid to see if that will help. Patient is welcome to contact office at any time with questions * ABIMBOLA Amaya - 06/01/2024 1:40 PM EDT DENTIFIER: Marni Esteves is a 68 y.o. old female who presents to the gastroenterology department today for re-evaluation of burping, dyspepsia, celiac as well as bloating. Also now has PMR as well as giant cell arteritis and rheumatoid arthritis. HPI: 68-year-old female returns for follow up of burping, dyspepsia, celiac as well as bloating. Patient is accompanied by her Does have issues with PMR and rheurmatoid arthritis. Patient does have a fatty liver and will be set up in july for US and labs. Patient has recently been started on prednisone and methotrexate due to the PMR and giant cell arteritis and aware that these can irritate the stomach. Patient should eat prior to takinbg the medication. Is aware that there are medications that can also affect the celiac and cause some changes in her stool. She can use simethicone to help with the gassiness. If she has occasional dyspepsia she can use pepcid to see if that will help. Patient is welcome to contact office at any time with questions ROS: GENERAL: No malaise, significant weight loss or fever HEENT: No changes in hearing or vision, nose bleeds or swallowing problems NECK: No lumps, goiter, pain or significant neck swelling RESPIRATORY: No cough, wheezing or shortness of breath CARDIOVASCULAR: No chest pain, leg swelling or palpitations, positive for giant cell arteritis and PMR GI: Positive for burping, dyspepsia as well as celiac sprue MUSCULOSKELETAL: No joint pain or swelling, back pain, or muscle pain. SKIN: No lesions, rash or itching The remainder of the review of systems is reviewed and negative. 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) 12/29/2022 Palpitations 03/30/2022 Positive DAREN (antinuclear antibody) 06/18/2021 Obesity (BMI 30.0-34.9) 06/17/2021 Obstructive sleep apnea 06/17/2021 Lumbago 10/29/2009 Radiculitis, lumbosacral 10/29/2009 Anemia 10/04/2009 Rheumatoid arthritis ([facility]) 10/04/2009 Hypercholesteremia 10/04/2009 Hypertension 10/04/2009 Hypothyroid 10/04/2009 [...] Outpatient Medications Marked as Taking for the 06/01/24 encounter (Office Visit) with ABIMBOLA Amaya Medication Sig Dispense Refill atenoloL (TENORMIN) 25 [...] each day before breakfast. 90 tablet 0 lisinopriL (PRINIVIL,ZESTRIL) 5 mg tablet Take 1 tablet (5 mg total) by mouth 1 (one) time each day. 30 each 5 methotrexate 2.5 mg tablet Take 6 tablets (15 mg total) by mouth predniSONE (DELTASONE) 1 mg tablet Take 1 tablet (1 mg total) by mouth 1 (one) time each day. spironolactone (Aldactone) 50 mg tablet Take 1 tablet (50 mg total) by mouth 1 (one) time each day.30 each 11 ALLERGIES: @ALL@ PHYSICAL EXAM: Visit Vitals BP 122/56 Pulse 66 Ht 1.588 m (62.5 ) Wt 76.7 kg (169 lb) BMI 30.42 kg/m?? OB Status Hysterectomy Smoking Status Former BSA 1.79 m?? APPEARANCE: Alert and in no acute distress EYES: PERRLA, conjunctiva and sclera normal. MOUTH/THROAT: no erythema or exudates NECK: Neck supple, no adenopathy HEART: RRR with normal S1 and S2, no murmurs appreciated LUNG: clear to auscultation LYMPH NODES: grossly normal ABDOMEN:, Nontender, normal active bowel sounds throughout, no organomegaly RECTAL: Exam deferred. EXTREMITIES: Extremities warm and well perfused SKIN: Skin color, texture, turgor normal. LABS: Lab Results Component Value Date WBC 13.2 (H) 05/23/2024 WBC 11.0 (H) 02/08/2024 WBC 12.9 (H) 01/19/2024 HGB 13.7 05/23/2024 HGB 12.7 02/08/2024 HGB 12.1 01/19/2024 HCT 41.0 05/23/2024 HCT 38.7 02/08/2024 HCT 38.4 01/19/2024 MCV 82.0 05/23/2024 MCV 80.0 02/08/2024 MCV 84.6 01/19/2024 PLT 377 05/23/2024 PLT 390 02/08/2024 PLT 419 (H) 01/19/2024 NA 129 (L) 05/23/2024 NA 136 02/08/2024 NA 140 01/19/2024 K 4.3 05/23/2024 K 3.2 (L) 02/08/2024 K 4.7 01/19/2024 CL 95 (L) 05/23/2024 CL 104 02/08/2024 CL 106 01/19/2024 CO2 24 05/23/2024 CO2 21 02/08/2024 CO2 28 01/19/2024 GLUCOSE 101 (H) 05/23/2024 GLUCOSE 115 (H) 02/08/2024 GLUCOSE 104 (H) 01/19/2024 BUN 16 05/23/2024 BUN 7 02/08/2024 BUN 9 01/19/2024 CREATININE 0.59 05/23/2024 CREATININE 0.66 02/08/2024 CREATININE 0.65 01/19/2024 CALCIUM 9.3 05/23/2024 CALCIUM 9.3 02/08/2024 CALCIUM 9.7 01/19/2024 PROT 7.2 02/08/2024 PROT 7.6 01/11/2024 ALBUMIN 3.7 02/08/2024 ALBUMIN 4.0 01/11/2024 BILITOT 0.2 02/08/2024 BILITOT 0.3 01/11/2024 AST 16 02/08/2024 AST 25 01/11/2024 ALT 23 02/08/2024 ALT 27 01/11/2024 PHOS 4.8 (H) 01/19/2024 MG 2.0 05/23/2024 MG 1.7 (L) 02/08/2024 MG 2.0 01/19/2024 ALKPHOS 74 02/08/2024 ALKPHOS 67 01/11/2024 EGFR 98 05/23/2024 EGFR 96 02/08/2024 EGFR 96 01/19/2024 Lab Results Component Value Date IRON 151 (H) 03/28/2024 LIPASE 26 02/08/2024 PT 11.9 01/11/2024 INR 1.0 01/11/2024 IMAGING: CT Head wo Contrast Head CT without intravenous contrast. History 53 [...] Signed Date: 04/18/2024 12:21 ET Workstation ID: [id number] Transcribed By: Self Edit Transcribed Date: 04/18/2024 11:[address] Results for orders placed during the hospital encounter of 04/18/24 CT Head wo Contrast Narrative Head CT without intravenous contrast. History 53 [...] Signed Date: 04/18/2024 12:21 ET Workstation ID: [id number] Transcribed By: Self Edit Transcribed Date: 04/18/2024 11:58 ET US Results for orders placed during the hospital encounter of 03/30/24 US Head Neck Soft Tissue Narrative US HEAD NECK SOFT TISSUE SONO SOFT TISSUE HISTORY: Submandibular mass on left. PRIORS: None. FINDINGS: Ultrasound evaluation of the palpable area indicated by the patient superior to the left submandibular gland was performed. There is a 0.8 x 0.4 x 0.5 cm lymph node with prominent fatty hilum corresponding to the palpable area. Impression Morphologically normal lymph node corresponding to the palpable area. -------- FINAL REPORT -------- Dictated By: Felecia Roth Dictated Date: 03/30/2024 13:20 ET Assigned Physician: Felecia Roth Reviewed and Electronically Signed By: Felecia Roth Signed Date: 03/30/2024 13:21 ET Workstation ID: [id number] Transcribed By: Self Edit Transcribed Date: 03/30/2024 13:20 ET IMPRESSION: 1. History of repair of hiatal hernia 2. Diverticulosis 3. PMR (polymyalgia rheumatica) ([facility]) 4. Rheumatoid arthritis with positive rheumatoid factor, involving unspecified site ([facility]) 5. Celiac disease 6. Gassiness 7. Burping PLAN: 1. History of hiatal hernia repair, diverticulosis, PMR, rheumatoid arthritis, celiac, gassiness, burping Patient had been seen in the past for the gassiness and burping as well as issues with hiatal hernia. She has since had surgery in January 2024 and feels much better. She is also noted to have diverticulosis and aware that she should continue to use fiber to decrease chances of diverticulitis. Celiac's disease, she is aware that she should continue to watch her dietary intake as she can haveflareups of the celiac if she is not watching her dietary intake. Rheumatoid arthritis as well as PMR-was recently diagnosed and is on prednisone as well as methotrexate. She is aware that she should make sure to take these medications after eating and that if she has any heartburn, she should take with Pepcid. She states that her heartburn is basically resolved since she has had the hiatal hernia repair. Patient is aware to contact office with any questions or concerns Total time of today's encounter is 38 minutes in preparing to see the patient, reviewing labs, diagnostic studies as well as other provider notes, documenting in charting, creating an HPI, performinga medically appropriate exam, counseling patient length in regards to dyspepsia, bloating, burping,gassiness, celiac sprue There was documentation in EMR after visit. None of which time was spent performing separately billable procedures or ancillary services. Much appreciation for allowing us to participate in patient's care No orders of the defined types were placed in this encounter. ADDITIONAL ORDERS: None ABIMBOLA Amaya documented in this encounter Plan of Treatment Upcoming Encounters Date Type Department Care Team (Late st Contact Info) Description 06/16/2024 9:45 AM EDT Office Visit Adult Medicine - [place] [address] [place] [address] Belia Villavicencio MD [address] [place] [address] 06/27/2024 10:00 AM EDT Ancillary Procedure [facility] - [facility] [address] [facility] [address] [place] [address] 09/29/2024 1:15 PM EDT Office Visit [address] [phone] Belia Villavicencio MD [address] [place] [address] documented as of this encounter Visit Diagnoses Diagnosis History of repair of hiatal hernia- Primary Diverticulosis Diverticulosis of colon (without mention of hemorrhage) PMR (polymyalgia rheumatica) (CMS/HCC) Polymyalgia rheumatica Rheumatoid arthritis with positive rheumatoid factor, involving unspecified site (CMS/HCC) Celiac disease Gassiness Flatulence, eructation, and gas pain Burping Flatulence, eructation, and gas pain documented in this encounter Historical Medications * This list may reflect changes made after this encounter. calcium citrate-vitamin D (CITRACAL+D) 315 mg-5 mcg (200 unit) per tablet Take 1 tablet by mouth 1 (one) time each day. folic acid (FOLVITE) 1 mg tablet Take by mouth 1 (one) time each day. added in this encounter Additional Health Concerns Assessment Noted Time PHQ-9 Depression Total Score: 0 03/27/19 25 4:47 PM EST documented as of this encounter Care Teams Home Health Assistant Relationship Specialty Start Date End Date Belia Villavicencio MD [address] [place] [phone] PCP - General Internal Medicine 01/17/24 documented as of this encounter
== END 2024-06-06 12:46 | disposition home or self-care (01) ==
LOC: HO.PET 12:45
PROVIDERS: PCP Internal Medicine; Visit Provider Student in an Organized Health Care Education/Training Program
DX: Z13.89 Encounter for screening for other disorder (principal)

== ENCOUNTER 2024-06-20 12:22 | Outpatient (REF) | payer OTHER, SELFPAY ==
[2024-06-20 12:33] LABS: MANUAL DIFF FLAG NO
[2024-06-20 13:15] LABS: Basophils Absolute Auto 0.1 X10*3/uL (0.0-0.2); Basophils Percent Auto 0.5 % (0-2); Eosinophils Percent Auto 0.1 % (0-4); Hematocrit 38.5 % (37.0-47.0); Hemoglobin 12.8 g/dl (12.0-16.0); Imm Gran Abs Auto 0.27 X10*3/uL (0.00-0.03); Imm Gran Pct Auto 2.5 % (0.0-0.4); Lymphocytes Absolute Auto 1.5 X10*3/uL (1.2-4.9); Lymphocytes Percent Auto 13.8 % (20-40); Mean Corpuscular HGB Conc 33.2 g/dl (31.0-35.0); Mean Corpuscular Hemoglobin 26.8 pg (27.0-33.0); Mean Corpuscular Volume 80.7 fL (80.0-98.0); Monocytes Absolute Auto 0.8 X10*3/uL (0.1-1.2); Monocytes Percent Auto 7.7 % (2-11); Neutrophils Percent Auto 75.4 % (45-73); Platelet Count 416 X10*3/uL (160-400); Red Blood Count 4.77 X10*6/uL (4.20-5.50); Red Cell Distribution Width 14.5 % (11.0-16.0); White Blood Count 10.7 X10*3/uL (4.8-10.8)
[2024-06-20 13:51] LABS: Erythrocyte Sedimentation Rate 25 MM/HR (0-20)
[2024-06-20 14:10] LABS: Alanine Aminotransferase 25 U/L (0-31); Albumin Level 4.5 g/dL (3.5-5.0); Anion Gap 14 (12-20); Aspartate Amino Transferase 20 U/L (5-31); Bilirubin Total 0.2 mg/dL (0.0-1.0); Blood Urea Nitrogen 18 mg/dL (9-16); Calcium 10.2 mg/dL (8.4-10.2); Carbon Dioxide 24 mmol/L (22-29); Chloride 92 mmol/L (96-108); Estimated Glomerular Filt Rate > 60; Glucose Random 95 mg/dL (60-115); Potassium 4.8 mmol/L (3.3-5.1); Sodium 125 mmol/L (135-145); Total Protein 7.7 g/dL (6.5-8.0)
--- OUTSIDE RECORDS SUMMARY | 2024-06-20 15:06 | XMS_ITS | Encounter Summary ---
Author Organization [facility] [place] [address] Care Team Providers Care Pearl Diver Name Role Phone Belia Villavicencio MD Primary Care Prov ider Reason for Visit * Reason Comments Cerumen Impaction Encounter Details Date Type Department Care Team (Late st Contact Info) Description 06/20/2024 11:30 AM EDT Office Visit Adult Medicine - [place] [address] [place] [phone] Reji Ramirez PA [address] [place] [address] Excessive ear wax, left (Primary Dx) Social History Tobacco Use Types [...] your loved ones. 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 old female. HPI: This is my first visit with patient. Here for ear flush. Has been using Debrox for the last 3 days.Feels slightly obstructed but no pain or discharge noted. ROS: GENERAL: Negative for malaise, significant weight loss and fever NEURO: No persistent headache, fainting, seizures, strokes, TIAs, weakness, numbness or tingling PAST MEDICAL HISTORY: Patient Active Problem List Diagnosis Date Noted Celiac disease 03/28/2024 GERD (gastroesophageal reflux disease) 12/27/2023 Incarcerated paraesophageal hernia 12/27/2023 Giant cell arteritis with polymyalgia rheumatica ([facility] V24, [facility] V28) 12/29/2022 Palpitations 03/30/2022 Positive DAREN (antinuclear antibody) 06/18/2021 Obesity (BMI 30.0-34.9) 06/17/2021 Obstructive sleep apnea 06/17/2021 Lumbago 10/29/2009 Radiculitis, lumbosacral 10/29/2009 Anemia 10/04/2009 Rheumatoid arthritis ([facility] V24, [facility] V28) 10/04/2009 Hypercholesteremia 10/04/2009 Hypertension 10/04/2009 Hypothyroid 10/04/2009 Panic disorder 10/04/2009 SOCIAL HISTORY: Social History Tobacco Use Smoking status: Former Current packs/day: 0.00 Types: Cigarettes Quit date: 1998 Years since quittin.3 Smokeless tobacco: Never Tobacco comments: QUIT SMOKING [...] Outpatient Medications Marked as Taking for the 06/20/24 encounter (Office Visit) with ABIMBOLA Tirado Medication Sig Dispense Refill atenoloL (TENORMIN) 25 mg tablet Take 0.5 tablets (12.5 mg total) by mouth 1 (one) time each day. calcium citrate-vitamin D (CITRACAL+D) 315 mg-5 mcg (200 unit) per tablet Take 1 tablet by mouth 1 (one) time each day. carbamide peroxide (DEBROX) 6.5 % otic solution Administer 5-10 drops into the left ear 2 (two) times a day for 8 days. 15 mL 0 cetirizine (ZyrTEC) 10 mg tablet Take 1 [...] time each day.30 each 11 ALLERGIES: Hydralazine, [id number] reductase inhibitors, Gluten, and Sulfa (sulfonamide antibiotics) PHYSICAL EXAM: Blood pressure (!) 156/84, pulse 67, temperature 36.3 ??C (97.3 ??F), temperature source Temporal, height 1.588 m (62.5 ), weight 76.7 kg (169 lb). Body mass index is 30.42 kg/m??. Plan is deferred until next visit APPEARANCE: Alert and in no acute distress EARS: Right ear external and internally within normal limits. Left ear with canal blocked by cerumen completely PROCEDURE: Left ear irrigated with warm water and peroxide. Remaining cerumen removed with lighted curette. Patient tolerated procedure well and tympanic pearly santos with good cone of light LABS: None at this time IMPRESSION: No diagnosis found. PLAN: Okay to intermittently use Debrox Call if any other issues. Follow-up as necessary No orders of the defined types were placed in this encounter. ADDITIONAL ORDERS: None ABIMBOLA Tirado on 06/20/2024 at 12:09 PM EDT documented in this encounter Plan of Treatment Upcoming Encounters Date Type Department Care Team (Late st Contact Info) Description 06/27/2024 10:00 AM EDT Ancillary Procedure [facility] - [address] [place] [address] 09/29/2024 1:15 PM EDT Office Visit Adult Medicine - [place] [address] [place] [address] Belia Villavicencio MD [address] [place] [address] Scheduled Orders Name Type Priority Associated Diagnoses Orde r Schedule Ear Cerumen Removal Procedures Routine Excessive ear wax, left 1 Occurrences starting 06/20/2024 until 06/20/2025 documented as of this encounter Visit Diagnoses Diagnosis Excessive ear wax, left- Primary documented in this encounter Additional Health Concerns Assessment Noted Time PHQ-9 Depression Total Score: 0 03/27/19 25 4:47 PM EST documented as of this encounter Care Teams Pearl Diver Relationship Specialty Start Date End Date Belia Villavicencio MD [address] [place] [phone] PCP - General Internal Medicine 01/17/24 documented as of this encounter
--- OUTSIDE RECORDS SUMMARY | 2024-06-20 15:06 | XMS_ITS | Encounter Summary ---
Author Organization [facility] [place] [address] Care Team Providers Care Spot Machine Operator Name Role Phone Belia Villavicencio MD Primary Care Prov ider Reason for Visit * Reason Comments Hypertension Patient is here for a 6 week follow up fop hypertension Encounter Details Date Type Department Care Team (Late st Contact Info) Description 06/16/2024 9:45 AM EDT Office Visit Adult Medicine - [address] [phone] Belia Villavicencio MD [address] [place] [address] Primary hypertension (Primary Dx); Rheumatoid arthritis, involving unspecified site, unspecified whether rheumatoid factor present (CMS/HCC V24, CMS/HCC V28); Excessive ear wax, left Social History Tobacco Use Types Packs/Day Years [...] Sign Reading Time Taken Comments Blood Pressure 136/76 06/16/2024 10:14 AM EDT Pulse 76 06/16/2024 10:14 AM EDT Temperature 36.7 ??C (98 ??F) 06/16/2024 10:14 AM EDT Respiratory Rate - - Oxygen Saturation - - Inhaled Oxygen Concentration - - Weight 75.1 kg (165 lb 9.6 oz) 06/16/2024 10:14 AM EDT Height 171.5 cm (5' 7.5 ) 06/16/2024 10:14 AM ED T Body Mass Index 25.55 06/16/2024 10:14 AM EDT documented in this encounter Ordered Prescriptions Prescription Sig Dispense Quantity Refills Last Filled Start Date End Date carbamide peroxide (DEBROX) 6.5 % otic solution Administer 5-10 drops into the left ear 2 (two) times a day for 8 days. 15 mL 06/16/2024 documented in this encounter Progress Notes * Belia Villavicencio MD - 06/16/2024 9:45 AM EDT CHIEF COMPLAINT: Hypertension (Patient is here for a 6 week follow up fop hypertension) IDENTIFIER: Marni Esteves is a 68 y.o. old female. HPI: 68-year-old lady with a history of rheumatoid arthritis hypertension celiac disease GERD being treated for giant cell arthritis presents for follow-up of her blood pressure without been elevated. She was actually sent to the emergency room from her structural shop helper office because her blood pressure was so high she was asymptomatic at the After a thorough investigation they felt that it was her prednisone that she was being treated withfor her giant cell arthritis. She is slowly coming down on the prednisone. Her blood pressure is much improved however she says that she started to get some aches and pains which she did not have on the higher doses of prednisone. She will discuss further with her structural shop helper about treating her arthritis. Also said tried some Gummies from the dispensary's which has helped She feels that she is sleeping better now with the reduced dose of prednisone She feels less anxious Also complaining of decreased hearing in the left . she did see an director of [employer] felt that she had wax in the left ear We reviewed her medications ROS: See HPI PAST MEDICAL HISTORY: Patient Active Problem List Diagnosis Date Noted Celiac disease 03/28/2024 GERD (gastroesophageal reflux disease) 12/27/2023 Incarcerated paraesophageal hernia 12/27/2023 Giant cell arteritis with polymyalgia rheumatica ([facility] V24, [facility] V28) 12/29/2022 Palpitations 03/30/2022 Positive DAREN (antinuclear antibody) 06/18/2021 Obesity (BMI 30.0-34.9) 06/17/2021 Obstructive sleep apnea 06/17/2021 Lumbago 10/29/2009 Radiculitis, lumbosacral 10/29/2009 Anemia 10/04/2009 Rheumatoid arthritis ([facility] V24, [facility] V28) 10/04/2009 Hypercholesteremia 10/04/2009 Hypertension 10/04/2009 Hypothyroid [...] Outpatient Medications Marked as Taking for the 06/16/24 encounter (Office Visit) with Belia Villavicencio MD [...] time each day.30 each 11 ALLERGIES: Hydralazine, Hfqxzum-qez-yne reductase inhibitors, Gluten, and Sulfa (sulfonamide antibiotics) PHYSICAL EXAM: Blood pressure 136/76, pulse 76, temperature 36.7 ??C (98 ??F), temperature source Temporal, height1.715 m (67.5 ), weight 75.1 kg (165 lb 9.6 oz). Body mass index is 25.55 kg/m??. Plan is deferred because the patient [...] JVD appreciated LUNG: clear to auscultation bilaterally Ear wax left ear only LABS: Wt Readings from Last 4 Encounters: 06/16/24 1014 75.1 kg (165 lb 9.6 oz) 06/05/24 0939 78 kg (172 lb) 06/01/24 1342 76.7 kg (169 lb) 05/23/24 0855 74.8 kg (165 lb) IMPRESSION: 1. Primary hypertension 2. Rheumatoid arthritis, involving unspecified site, unspecified whether rheumatoid factor present (CMS/HCC V24, CMS/HCC V28) 3. Excessive ear wax, left PLAN: Primary hypertension Blood pressure under good control today Continue present medication regimen with the lisinopril Rheumatoid arthritis Had been on prednisone which had helped slowly coming off the prednisone Will discuss with her structural shop helper about pain management Excessive earwax left Debrox If no improvement she should make an appointment to have her ears irrigated Return to the office as scheduled No orders of the defined types were placed in this encounter. ADDITIONAL ORDERS: None Belia Villavicencio MD on 06/16/2024 at 12:30 PM EDT documented in this encounter Plan of Treatment Upcoming Encounters Date Type Department Care Team (Late st Contact Info) Description 06/27/2024 10:00 AM EDT Ancillary Procedure [facility] [address] [facility] [address] [place] [address] 09/29/2024 1:15 PM EDT Office Visit Adult Medicine - [address] [phone] Belia Villavicencio MD [address] [place] [phone] documented as of this encounter Visit Diagnoses Diagnosis Primary hypertension- Primary Unspecified essential hypertension Rheumatoid arthritis, involving unspecified site, unspecified whether rheumatoid factor present ([facility] V24, [facility] V28) Excessive ear wax, left documented in this encounter Additional Health Concerns Assessment Noted Time PHQ-9 Depression Total Score: 0 03/27/19 25 4:47 PM EST documented as of this encounter Care Teams Spot Machine Operator Relationship Specialty Start Date End Date Belia Villavicencio MD [address] [place] [phone] PCP - General Internal Medicine 01/17/24 documented as of this encounter
--- OUTSIDE RECORDS SUMMARY | 2024-06-20 15:06 | XMS_ITS | Clinical Summary ---
Author Organization [facility] Address [address] [place] [address] Phone Care Team Providers Care File Keeper Name Role Phone Belia Villavicencio MD Primary Care Prov ider Allergies Active Allergy Reactions Criticality Noted Date Comments Gluten Itching,GI intolerance 01/03/2024 Hydralazine Cardiac Issue High 02/16/2024 Severe chest pain Qvcqosl-Akd-Fac Reductase Inhibitors Muscular Issues High 01/08/2023 Sulfa (Sulfonamide Antibiotics) Rash 01/03/2024 Medications cetirizine (ZyrTEC) 10 mg tablet Take 1 tablet (10 mg total) by mouth 1 (one) time each day if needed for allergies. 11/11/19 24 Active atenoloL (TENORMIN) 25 mg tablet Take 0.5 tablets (12.5 mg total) by mouth 1 (one) time each day. 07/22/19 24 Active spironolactone (Aldactone) 50 mg tablet Take 1 tablet (50 mg total) by mouth 1 (one) time each day. 30 each 11 02/14/20 24 025 Active ferrous sulfate 325 mg (65 mg elemental iron) tablet TAKE 1 TABLET BY MOUTH EVERY DAY 90 tablet 1 03/22/19 25 Active lisinopriL (PRINIVIL,ZEST RIL) 5 mg tablet Take 1 tablet (5 mg total) by mouth 1 (one) time each day. 30 each 5 05/05/19 25 026 Active clonazePAM (KlonoPIN) 0.5 mg tabletIndicati ons:Panic disorder (episodic paroxysmal anxiety) Take 1 tablet (0.5 mg total) by mouth 3 (three) times a day. Max Daily Amount: 1.5 mg 90 tablet 2 05/05/19 25 Active predniSONE (DELTASONE) 1 mg tablet Take 1 tablet (1 mg total) by mouth 1 (one) time each day. 11/15/19 24 Active methotrexate 2.5 mg tablet Take 6 tablets (15 mg total) by mouth 1 (one) time per week 05/12/19 25 Active folic acid (FOLVITE) 1 mg tablet Take by mouth 1 (one) time each day. Active calcium citrate-vitami n D (CITRACAL+D) 315 mg-5 mcg (200 unit) per tablet Take 1 tablet by mouth 1 (one) time each day. Active levothyroxine (SYNTHROID, LEVOTHROID) 100 mcg tablet Take 1 tablet (100 mcg total) by mouth 1 (one) time each day before breakfast. 90 tablet 1 06/03/19 25 Active carbamide peroxide (DEBROX) 6.5 % otic solution Administer 5-10 drops into the left ear 2 (two) times a day for 8 days. 15 mL 06/17/19 25 025 Active levothyroxine (SYNTHROID, LEVOTHROID) 100 mcg tablet Take 1 tablet (100 mcg total) by mouth 1 (one) time each day before breakfast. 90 tablet 03/16/19 25 025 Discontinued Active Problems Problem Noted Date Diagnosed [...] barium swallow study. Giant cell arteritis with po lymyalgia rheumatica ([facility] V24, [facility] V28) 12/29/2022 Overview (01/11/2024): 12/28 - engaged with Dr. Reeves of rheumatology at [place] Palpitations 03/30/2022 Positive DAREN (antinuclear antibody) 06/18/2021 Obesity (BMI 30.0-34.9) 06/17/2021 Obstructive sleep apnea 06/17/2021 Overview (01/11/2024): Using CPAP (June 2021) Lumbago 10/29/2009 Radiculitis, lumbosacral 10/29/2009 Anemia 10/04/2009 Rheumatoid arthritis ([facility] V24, [facility] V28) 10/04/2009 Hypercholesteremia 10/04/2009 Assessment & Plan (06/05/2024 [...] Encounters Date Type Department Care Team Description 06/20/2024 11:30 AM EDT Office Visit Adult [address] [phone] Reji Ramirez PA Excessive ear wax, left (Primary Dx) 06/16/2024 9:45 AM EDT Office Visit [address] [phone] Belia Villavicencio MD Primary hypertension (Primary Dx); Rheumatoid arthritis, involving unspecified site, unspecified whether rheumatoid factor present ([facility] V24, [facility] V28); Excessive ear wax, left 06/05/2024 9:20 AM EDT Office Visit [facility] - [facility] [address] [facility] [address] [place] [phone] Srinath Mercado MD Primary hypertension (Primary Dx); Cardiomegaly; Hypercholesteremia 06/01/2024 1:40 PM EDT Office Visit Gastroenterology - [address] [facility] 175 [facility] [address] [place] [phone] Sylvain Laws PA History of repair of hiatal hernia (Primary Dx); Diverticulosis; PMR (polymyalgia rheumatica) ([facility] V24); Rheumatoid arthritis with positive rheumatoid factor, involving unspecified site ([facility] V24, [facility] V28); Celiac disease; Gassiness; Burping 05/23/2024 9:12 AM EDT - 05/23/2024 12:26 PM EDT Emergency [facility] Emergency [address] [place] [phone] Corey Wharton MD Asymptomatic hypertension (Primary Dx) Discharge Disposition: Home or Self Care 05/05/2024 10:30 AM EST Office Visit [address] [phone] Belia Villavicencio MD Primary hypertension (Primary Dx); Giant cell arteritis with polymyalgia rheumatica ([facility] V24, [facility] V28); Panic disorder (episodic paroxysmal anxiety) 05/02/2024 Telephone Adult [address] [phone] Belia Villavicencio MD Hypertension 04/24/[address] [phone] Beila Villavicencio MD Return Call From Center/Facility 04/24/2024 Telephone [facility] - [address] [place] [phone] Olivia Montano NP 04/24/2024 Nurse Triage [address] [phone] Belia Villavicencio MD [facility] 04/18/2024 11:18 AM EST - 04/18/2024 11:59 PM EST Hospital Encounter CT Scan - [address] [phone] Chronic nonintractable headache, unspecified headache type Discharge Disposition: Home or Self Care 04/17/[address] [phone] Belia Villavicencio MD Faxed Order Mammogram and Ultrasound 04/12/2024 3:30 PM EST Office Visit [facility] - [address] [place] [phone] Sue Williamson NP Acute non-recurrent maxillary sinusitis (Primary Dx) 03/30/2024 12:29 PM EST - 03/30/2024 11:59 PM EST Hospital Encounter Radiology Department - [address] [phone] Submandibular gland mass Discharge Disposition: Home or Self Care 03/28/2024 2:30 PM EST Office Visit Adult [address] [phone] Belia Villavicencio MD Rheumatoid arthritis, involving unspecified site, unspecified whether rheumatoid factor present ([facility] V24, [facility] V28) (Primary Dx); Primary hypertension; Celiac disease; Iron deficiency; Hypothyroidism, unspecified type; Submandibular gland mass; Rash 03/27/2024 1:30 PM EST Telemedicine Adult Medicine - [place] [address] [place] [phone] Medicare annual wellness visit, subsequent (Primary Dx) 03/27/2024 Telephone Adult [facility] - [place] [address] [place] [phone] Mary Devries [place] Medicare Annual Wellness Visit Subsequent (AWV DUE 2024) from Last 3 Months Immunizations Name Administration [...] pressure) depen dence Celiac disease Rheumatoid arthritis ([facility] V24, [facility] V28) 01/2024 Family History Medical History Relation Name [...] for your loved ones. For example, children's ministries director or elderly care for an older [...] 06/20/2024 11:12 AM E DT Respiratory Rate 16 05/23/2024 10:15 AM EDT Oxygen Saturation 97% 06/05/2024 9:39 AM EDT Inhaled Oxygen Concentration - - Weight 76.7 kg (169 lb) 06/20/2024 11:12 AM EDT Height 158.8 cm (5' 2.5 ) 06/20/2024 11:12 AM ED T Body Mass Index 30.42 06/20/2024 11:12 AM EDT Plan of Treatment Upcoming Encounters Date Type Department Care Team (Late st Contact Info) Description 06/27/2024 10:00 AM EDT Ancillary Procedure [facility] - [facility] [address] [facility] [address] [place] [address] 09/29/2024 1:15 PM EDT Office Visit Adult Medicine - [address] [phone] Belia Villavicencio MD [address] [place] [address] Health Maintenance Due Date Last Done Comments Breast Cancer Screening 1955 Hepatitis A Vaccines (1 of 2 - Risk 2-dose series) 07/22/1974 Pneumococcal Vaccine: 50+ Years (1 of 2 - PCV) 07/22/1974 Zoster Vaccines (1 of 2) 07/22/1974 Hepatitis B Vaccines (1 of 3 - Risk 3-dose series) 2015 RSV Immunization Adult Patients (1 - Risk 60-74 years 1-dose series) 2015 DTaP,Tdap,and Td Vaccines (3 - Td or Tdap) 02/06/2023 02/06/2013, 10/04/2009 COVID-19 Vaccine ( season) 2023 04/20/2022, 02/11/2021, 06/20/2020, Additional history exists Influenza Vaccine (Season Ended) 2024 02/05/2022, 01/28/2021, 04/04/2020, Additional history exists Depression Screening [...] age to complete this topic Meningococcal B Vaccine Aged Out No l onger eligible based on patient's age to complete this topic RSV Immunization Patients Under 20 months Aged Out No longer eligible based on patient's age to complete this topic Varicella Vaccines Aged Out No longer eligible based on patient's age to complete this topic Medical Devices Implanted Type Area Inspector Mechanical Device Identifier Shelf Expiration Date Model / Serial / Lot Sealant Fibrin Vistaseal 10ml - [id number] [id number] - [id number] Implanted:Qty: 1 on 01/18/2024 by Emily Ho MD at [facility] Hemostasis N/A: Abdomen [employer] [id number] 09/13/2025 [id number] / [id number] / [id number] Tissue Ovitex 1s Perm 6x10cm - Sna - [id number] Implanted:Qty: 1 on 01/18/2024 by Emily Ho MD at [facility] Surgical Mesh Sling Implants N/A: Abdomen [employer]ARGY [employer] [id number] 07/05/2025 [id number] / NA / [id number] Procedures [...] EST Acute non-recurrent maxillary sinusitis POC RAPID [id number], MOLECULAR Routine 04/13/2024 9:54 AM EST Acute [...] Results * ECG-Annotated (05/26/2024) us Provider Onbase ECG ORDERABLES Final Result * Magnesium (05/23/2024 11:17 AM EDT) Pathologist [facility] Magnesium 2.0 1.9 - 2.6 mg/dL LAB CHEMISTRY METHOD 05/23/2024 11:48 AM EDT [facility] Blood Venous blood specimen / Unknown Venipuncture / Unknown 05/23/2024 11:17 AM EDT 05/23/2024 11:21 AM EDT Corey Wharton MD LAB BLOOD ORDERABLES Molly l Result [facility] [address] [place] [address], [place] [phone] * (ABNORMAL) Basic metabolic panel (05/23/2024 11:17 AM EDT) Sodium 129(L) 133 - 145 mmol/L LAB CHEMISTRY METHOD 05/23/2024 11:53 AM [facility] Potassium 4.3 3.5 - 5.5 mmol/L LAB CHEMISTRY METHOD 05/23/2024 11:53 AM [facility] Chloride 95(L) 96 - 110 mmol/L LAB CHEMISTRY METHOD 05/23/2024 11:53 AM [facility] CO2 24 21 - 32 mmol/L LAB CHEMISTRY METHOD 05/23/2024 11:53 AM [facility] Anion Gap 10 3 - 11 LAB CHEMISTRY METHOD 05/23/2024 11:53 AM [facility] Glucose 101(H) 70 - 100 mg/dL LAB CHEMISTRY METHOD 05/23/2024 11:53 AM [facility] BUN 16 5 - 25 mg/dL LAB CHEMISTRY METHOD 05/23/2024 11:53 AM [facility] Creatinine 0.59 0.50 - 1.10 mg/dL LAB CHEMISTRY METHOD 05/23/2024 11:53 AM [facility] eGFR 98 >=60 mL/min/1. 73m2 LAB CHEMISTRY METHOD 05/23/2024 11:53 AM [facility] Comment:Calculation based on the??Chronic Kidney Disease Epidemiology Collaboration (CKD-EPI) equation refit??without adjustment for race. BUN/Creatinine Ratio 27.1 LAB CHEMISTRY METHOD 05/23/2024 11:53 AM [facility] Calcium 9.3 8.5 - 10.5 mg/dL LAB CHEMISTRY METHOD 05/23/2024 11:53 AM [facility] Blood Venous blood specimen / Unknown Venipuncture / Unknown 05/23/2024 11:17 AM EDT 05/23/2024 11:21 AM EDT us Corey Wharton MD LAB BLOOD ORDERABLES Molly l Result Performing Organization Address [facility]/ZIP Co de Phone Number [facility] [address] [place] [address], [place] [phone] * ECG 12 lead (05/23/2024 9:55 AM EDT) Ventricular Rate ECG 54 BPM GEMUSE Atrial Rate 54 BPM GEMUSE P-R Interval 184 ms GEMUSE QRS Duration 70 ms GEMUSE Q-T Interval 400 ms GEMUSE QTc 379 ms GEMUSE P Wave [place] 2 degrees GEMUSE R [place] 4 degrees GEMUSE T [place] 39 degrees GEMUSE ECG Interpretation Sinus bradycardia Possible Inferior infarct , age undetermined Abnormal ECG When compared with ECG of 09-FEB-2024 02:06, [place] interval has decreased Vent. rate has decreased BY ??31 BPM Nonspecific T wave abnormality no longer evident in Inferior leads QT has shortened Confirmed by MD Rogelio, Srinath ([id number]) on 05/24/2024 10:19:54 AM GEMUSE 05/23/2024 9:55 AM EDT 05/24/2024 10:19 AM EDT Corey Wharton MD ECG ORDERABLES Final Res ult Performing Organization Address [facility] Co de Phone Number GEMUSE * (ABNORMAL) CBC auto differential (05/23/2024 9:25 AM EDT) Pathologist [facility] WBC 13.2(H) 4.8 - 10.8 K/[facility] LAB HEMETOLOGY METHOD 05/23/2024 10:46 AM EDT [facility] RBC 5.00(H) 3.80 - 4.80 M/[facility] LAB HEMETOLOGY METHOD 05/23/2024 10:46 AM EDT [facility] Hemoglobin 13.7 11.5 - 16.0 g/dL LAB HEMETOLOGY METHOD 05/23/2024 10:46 AM EDT [facility] Hematocrit 41.0 35.0 - 47.0 % LAB HEMETOLOGY METHOD 05/23/2024 10:46 AM [facility] MCV 82.0 79.0 - 98.0 FL LAB HEMETOLOGY METHOD 05/23/2024 10:46 AM [facility] MCH 27.4 27.0 - 32.0 pcg LAB HEMETOLOGY METHOD 05/23/2024 10:46 AM [facility] MCHC 33.4 32.0 - 37.0 g/dL LAB HEMETOLOGY METHOD 05/23/2024 10:46 AM [facility] RDW 15.2(H) 11.0 - 15.0 % LAB HEMETOLOGY METHOD 05/23/2024 10:46 AM [facility] Platelets 377 130 - 400 K/mcL LAB HEMETOLOGY METHOD 05/23/2024 10:46 AM [facility] MPV 10.9 7.0 - 11.0 FL LAB HEMETOLOGY METHOD 05/23/2024 10:46 AM [facility] NRBC 0.0 <1.0 % LAB HEMETOLOGY METHOD 05/23/2024 10:46 AM [facility] NRBC Absolute 0.00 <0.10 K/mcL LAB HEMETOLOGY METHOD 05/23/2024 10:46 AM [facility] Neutrophils Relative 73.4 % LAB HEMETOLOGY METHOD 05/23/2024 10:46 AM [facility] Lymphocytes Relative 18.9 % LAB HEMETOLOGY METHOD 05/23/2024 10:46 AM [facility] Monocytes Relative 6.2 % LAB HEMETOLOGY METHOD 05/23/2024 10:46 AM [facility] Eosinophils Relative 0.2 % LAB HEMETOLOGY METHOD 05/23/2024 10:46 AM [facility] Basophils Relative 0.2 % LAB HEMETOLOGY METHOD 05/23/2024 10:46 AM EDT [facility] Immature Granulocytes Relative 1.1 % LAB HEMETOLOGY METHOD 05/23/2024 10:46 AM EDT [facility] Neutrophils Absolute 9.66(H) 1.50 - 7.00 K/mcL LAB HEMETOLOGY METHOD 05/23/2024 10:46 AM EDT [facility] Lymphocytes Absolute 2.48 1.00 - 5.00 K/mcL LAB HEMETOLOGY METHOD 05/23/2024 10:46 AM EDT [facility] Monocytes Absolute 0.81 0.20 - 1.00 K/mcL LAB HEMETOLOGY METHOD 05/23/2024 10:46 AM EDT [facility] Eosinophils Absolute 0.03 0.00 - 0.50 K/mcL LAB HEMETOLOGY METHOD 05/23/2024 10:46 AM EDT [facility] Basophils Absolute 0.03 0.00 - 0.20 K/mcL LAB HEMETOLOGY METHOD 05/23/2024 10:46 AM EDT [facility] Immature Granulocytes Absolute 0.14(H) 0.00 - 0.03 K/mcL LAB HEMETOLOGY METHOD 05/23/2024 10:46 AM EDT [facility] Blood Venous blood specimen / Unknown Venipuncture / Unknown 05/23/2024 9:25 AM EDT 05/23/2024 10:35 AM EDT us Corey Wharton MD LAB BLOOD ORDERABLES Molly claire Result [facility] [address] [place] [address], * CT Head wo Contrast (04/18/2024 11:40 [...] Signed Date: 04/18/2024 12:21 ET Workstation ID: [id number] Transcribed By: Self Edit Transcribed Date: 04/18/2024 [...] Signed Date: 04/18/2024 12:21 ET Workstation ID: [id number] Transcribed By: Self Edit Transcribed Date: 04/18/2024 11:58 ET Belia Villavicencio MD IMG CT PROCEDURES Final Result * POC Influenza A/B manually resulted (04/13/2024 9:55 AM EST) Rapid Influenza A AGN POC Negative Negative Rapid Influenza B AGN POC Negative Negative Swab 04/13/2024 9:55 AM EST Sue Williamson PREPARING BOX TENDER POINT OF CARE TEST ENTER/EDIT ORDERABLES Final Result * Poc Rapid [id number], MOLECULAR (04/13/2024 9:54 AM EST) COVID-19/SARS- COV-2 Rapid POC Negative Negative Swab Nasopharyngeal structure / Unknown 04/13/2024 9:54 AM EST Sue Williamson PREPARING BOX TENDER POINT OF CARE TEST ENTER/EDIT ORDERABLES Final [...] Signed Date: 03/30/2024 13:21 ET Workstation ID: [id number] Transcribed By: Self Edit Transcribed Date: 03/30/2024 [...] Signed Date: 03/30/2024 13:21 ET Workstation ID: [id number] Transcribed By: Self Edit Transcribed Date: 03/30/2024 13:20 ET Belia Villavicencio MD IMG US PROCEDURES Final Result * Thyroid stimulating hormone with reflex to free t4 and free t3 (03/28/2024 3:27 PM EST) TSH 1.42 0.40 - 4.00 mcIU/mL LAB CHEMISTRY METHOD 03/28/2024 6:38 PM EST [facility] Blood Venous blood specimen / Unknown Venipuncture / Unknown 03/28/2024 3:27 PM EST 03/28/2024 3:27 PM EST Belia Villavicencio MD LAB BLOOD ORDERABL ES Final Result [facility] [address] [place] [address], [place] [phone] * (ABNORMAL) Iron and TIBC (03/28/2024 3:27 PM EST) Pathologist [facility] Iron 151(H) 40 - 150 mcg/dL LAB CHEMISTRY METHOD 03/28/2024 6:28 PM EST [facility] TIBC 376 250 - 450 mcg/dL LAB CHEMISTRY METHOD 03/28/2024 6:28 PM EST [facility] Iron Saturation 40 15 - 50 % LAB CHEMISTRY METHOD 03/28/2024 6:28 PM EST [facility] Blood Venous blood specimen / Unknown Venipuncture / Unknown 03/28/2024 3:27 PM EST 03/28/2024 3:27 PM EST Belia Villavicencio MD LAB BLOOD ORDERABL ES Final Result Performing Organization Address [facility]/ZIP Co de Phone Number [facility] [address] [place] [address], [place] [phone] * Helicobacter pylori breath test (03/28/2024 3:27 PM EST) [facility] H Pylori Breath Test Negative Negative LAB CHEMISTRY METHOD 03/29/2024 11:27 AM EST [facility] Breath Oral cavity structure / Unknown Non-blood Collection / Unknown 03/28/2024 3:27 PM EST 03/28/2024 3:27 PM EST [facility] BODY FLUIDS AND STOOLS LUIS FERNANDO DANIEL Final Result Performing Organization Address City/[facility]/ZIP Co de Phone Number [facility] [address] [place] [address], [place] [phone] * (ABNORMAL) Lipid panel (09/20/2023) [facility] LDL/HDL Ratio 5(A) 0 - 4 Triglycerides 245(A) 0 - 150 mg/dL Cholesterol 275(A) 0 - 200 mg/dL HDL 60 >=40 mg/dL LDL Cholesterol 166(A) 0 - 100 mg/dL Blood Venous blood specimen / Unknown Historical Provider MD LAB BLOOD ORDERABLES Molly l Result * Colonoscopy (10/07/2022) Pathologist [facility] Colonoscopy no interpretation , abstracted Anatomical Region [...] classified as having normal bone density. [facility] Department of Internal Medicine recommends [...] classified as having normal bone density. [facility] Department of Internal Medicine recommendsusing [...] R esult * Hepatitis C Screening (09/18/2020) Hepatitis C Screening abstracted Historical Provider HEALTH MAINTENANCE Final Result from Last 3 Months or Most Recently Relevant to Health Maintenance Insurance MEDICAID - [place] [employer] MEDICARE Advance Directives Documents on File Type Date Recorded Patient Real Estate Administrative Assistant Expl anation Health Care Decision (hx) 01/09/2023 [...] Esteves Spouse Health Care Agent Care Teams File Keeper Relationship Specialty Start Date End Date Belia Villavicencio MD [address] [place] [id number] PCP - General Internal Medicine 01/17/24
--- OUTSIDE RECORDS SUMMARY | 2024-06-20 15:06 | XMS_ITS | Patient Health Record ---
Author Organization [facility] Address [address] [facility] [address] [place] [address] Care Team Providers Care Research Subject Name Role Phone SHANIQUA FERNANDEZ MD Primary Care Provider Unavail able Heena Brasher Unavailable [phone] Reason For Referral No Information Medications Medication [...]
--- OUTSIDE RECORDS SUMMARY | 2024-06-20 15:06 | XMS_ITS | Clinical Summary ---
Author Organization [facility] Address [address] [place] [address] Care Team Providers Care Coding Specialist Name Role Phone Urvashi Paredes NP Primary Care Provider [phone] Allergies Active Allergy Reactions Criticality Noted Date [...] age to complete this topic Care Teams Coding Specialist Relationship Specialty Start Date End Date Urvashi Paredes, MEDICAL OFFICE COORDINATOR [address] [place] [id number] PCP - General Nurse Practitioner 08/10/20
[2024-06-20 17:31] LABS: Alkaline Phosphatase 63 U/L (39-117)
== END 2024-06-20 12:23 | disposition home or self-care (01) ==
LOC: HO.LAB 12:22
PROVIDERS: PCP Internal Medicine; Visit Provider Student in an Organized Health Care Education/Training Program
DX: M31.6 Other giant cell arteritis (principal)
CPT/HCPCS: 36415; 80053; 85025; 85652; 86140

== ENCOUNTER 2024-06-22 08:47 | Outpatient (AMB) | payer OTHER, SELFPAY ==
--- NOTE | 2024-06-22 08:56 | MHC.OFFVIS ---
Vital Signs 06/22/24 09:01 Height 5 ft 2.5 in Weight 167 lb 15.876 oz BMI 30.2 BP 122/70 Blood Pressure Location Rt brachial Position Sitting Respiration 18 Pulse 79 Pulse Source Pulse Oximeter Pulse Oximetry (%) 98 Oxygen Delivery Method Room Air Intake Visit Reasons: RA Intake Note: Patient presents today for RA follow up. Allergies hydralazine Allergy (Severe, Verified 06/22/24 09:00) Shortness of Breath Sulfa (Sulfonamide Antibiotics) Allergy (Intermediate, Verified 06/22/24 09:00) Rash sulfamethoxazole [From Bactrim] Allergy (Intermediate, Verified 06/22/24 09:00) Rash trimethoprim [From Bactrim] Allergy (Intermediate, Verified 06/22/24 09:00) Rash rosuvastatin Adverse Reaction (Severe, Verified 06/22/24 09:00) Joint Pain Medication List - Last Reconciled 06/22/24 by Jina Braden MD atenolol 25 mg PO DAILY cetirizine 10 mg PO BEDTIME clonazepam 0.5 mg PO TID PRN CPAP As directed folic acid 1 mg PO DAILY levothyroxine 100 mcg PO DAILY methotrexate sodium 15 mg (6 x 2.5 mg) PO QWEEK 90 days prednisone 5 mg PO DIRECTED spironolactone 50 mg PO DAILY HPI Comments Details: Patient is a 68 y.o. female with celiac disease, Crohn's disease, hypertension, hypothyroidism, history of PMR and non biopsy-proven GCA here today for follow up Interval History: Patient last seen 05/11/24. At that time she was following up for non biopsy-proven GCA. Her inflammatory markers improved and her headache resolved. She had PET scan which showed no evidence of large vessel vasculitis Today she is here for follow up, Doing well overall Headaches have resolved No visual changes Complaining of right knee pain Rheumatologic History: PMR onset around 10/2022 elevated ESR and CRP. ++DAREN Tapered off prednisone 12/2023 GCA Contacted the office 04/2024 with intractable occipital headache and inflammatory markers elevated Started on prednisone TA biopsy negative 04/2024 PET scan negative 06/2024 Current Rheumatology Medication(s): Prednisone 12.5mg PO daily [facility] Medical History (Updated 05/11/24 @ 11:06 by Jina Braden MD) Celiac disease Arrhythmia TIA (transient ischemic attack) Palpitations care home (current) use of systemic steroids Paresthesias Vertigo HTN (hypertension) Arthritis Anemia Hypothyroidism Vertigo Anxiety Back pain Surgical History Hx of cholecystectomy H/O: hysterectomy Giant cell arteritis H/O esophageal hernia repair Family History Brother Liver disease Cancer Sister Stroke Diabetes Sister Cancer Rheumatoid arthritis Sister Vitiligo Rheumatoid arthritis Daughter Vitiligo Social History Household Members: Spouse Housing: House Are you a primary healthcare sales representative to a significant other at home: No Do you presently have visiting nurse or other home services: No 75 years or older and lives alone: No Alcohol intake: former Patient Tobacco Use Status: Former Tobacco user Years Smoked: Quit 25 years ago e-Cigarette/Vaping Use: Never Used service: No Current occupational status: retired Review of Systems Const Details: Review of Systems Constitutional: Denies fever, chills, weight loss ENT: Denies vision changes, eye pain or eye redness, dental caries, dry mouth GI: Denies nausea, vomiting, diarrhea, abdominal pain, change in BM Pulm: Denies SOB, , hemoptysis, wheezing Cards: Denies chest pain, palpitations Skin: Denies Raynaud's, rash, nail changes, photosensitivity, PROPERTY INSURANCE AGENT: Denies headaches, weakness, paresthesias, recurrent falls MSK: as per HPI All other systems reviewed and are unremarkable except noted above Physical Exam Vital Signs: Last Vital Signs Pulse 79 06/22/24 09:01 Resp 18 06/22/24 09:01 BP 122/70 06/22/24 09:01 Pulse Ox 98 06/22/24 09:01 Oxygen Delivery Method Room Air 06/22/24 09:01 BMI result Body Mass Index 30.2 Vital signs reviewed Physical Examination CONSTITUITIONAL Patient alert and cooperative. Well appearing and in no apparent painful distress HEENT Conjunctiva and sclera clear. ?Pupils equal round and reactive to light. ?No lymphadenopathy. ? No temporal artery pulse on the right, area of biopsy. Normal temporal artery pulse on the left. No tenderness to palpation bilaterally. CHEST/RESPIRATORY SYSTEM Normal respiratory effort and able to speak in complete sentences. ?Clear to auscultation bilaterally. ?No crackles, rales, rhonchi, wheezes heard. CARDIAC SYSTEM Regular rate and rhythm. ?S1 and S2 heard no murmurs. ?Radial pulses intact bilaterally MSK Hands: ?Good patient biller strength bilaterally. No deformities noted. ?No synovitis noted to the MCPs, PIPs or DIPs. ?No tenderness to palpation of these joints. Wrists: ?Full range of motion at the wrists without pain. ?No tenderness to palpation or synovitis noted to the wrists. Elbows: Full range of motion without pain. No tenderness, weakness, swelling, increased warmth or erythema. Shoulders: Full range of motion without pain. No tenderness, weakness, swelling, increased warmth or erythema. Hips: Full range of motion without pain. Hip bursa: No tenderness to palpation Knees: ?Full range of motion. ?No tenderness, swelling, increased warmth or erythema.? Crepitations felt bilaterally Ankles: Full range of motion. ?No tenderness, swelling, increased warmth or erythema.? Feet: ?Negative squeeze test. ?No tenderness to palpation or swelling of the MTPs. Tender points:?No tenderness to palpation of the bilateral trapezius, supraspinatus, greater trochanters, anterior costochondral junctions, bilateral gluteal areas, bilateral suboccipital muscle insertions SKIN Skin intact without rashes. Results Reviewed Results Reviewed: Laboratory Tests 05/09/24 06/20/24 11:53 12:32 WBC 10.7 RBC 4.77 Hgb 12.8 Hct 38.5 Plt Count 416 H ESR 2 25 H Sodium 125 L Potassium 4.8 Chloride 92 L Carbon Dioxide 24 BUN 18 H Creatinine 0.65 AST 20 ALT 25 Alkaline Phosphatase 63 C-Reactive Protein < 0.10 0.90 H PET/CT 06/2024 FINDINGS: HEAD AND NECK: No abnormal radiotracer uptake activity seen in the carotid arteries. Nonspecific activity seen in the hypopharynx and oral cavity likely excreted isotope activity. No large intracranial hemorrhage, acute territorial infarct or significant shift of midline structures. CHEST: Ports and Devices: None Lungs: No abnormal radiotracer uptake. Pleura: No significant pleural effusion. Lymph Nodes: No tracer-avid mediastinal, hilar or internal mammary or axillary lymphadenopathy. Mediastinum: Abnormal activity seen in the thoracic aorta or subclavian arteries. A three-vessel branching of the aortic arch is noted. Breasts/Chest Wall: No abnormal radiotracer uptake. ABDOMEN/PELVIS: Liver/Biliary System: No focal tracer-avid liver lesion. The gallbladder appears unremarkable. Pancreas: Unremarkable. Spleen: No abnormal radiotracer uptake. No evidence of splenomegaly. Adrenal Glands: No abnormal radiotracer uptake. Kidneys: No hydronephrosis, hydroureter or renal calculi bilaterally. Bowel: There is no significant bowel dilatation to suggest obstruction. Lymph Nodes: No tracer avid retroperitoneal, mesenteric or pelvic and/or groin lymphadenopathy. Pelvic Organs: The urinary bladder is underdistended. MUSCULOSKELETAL: No abnormal metabolic activity seen VASCULAR: No abnormal metabolic seen in the abdominal aorta, iliac vessels are the branches. Bilateral lower extremity. There is mild activity seen in bilateral superficial femoral, popliteal and tibial veins. Not typical of giant cell arteritis. IMPRESSION: No abnormal vascular FDG activity seen in the neck, chest, abdomen and pelvis suspicious of giant cell arteritis. Mild activity seen in the superficial femoral, popliteal and tibial veins is nonspecific and can be seen in a normal PET study. Assessment & Plan Assessment & Plan (1) Giant cell arteritis: Comment: 04/2024. Occipital headache associated with elevated inflammatory markers TA biopsy negative Code(s): M31.6 - Other giant cell arteritis Category: Surgical Plan: #GCA Patient is a 68-year-old female with non biopsy-proven GCA here today for follow up. Currently in remission with no signs or symptoms of active GCA. No signs or symptoms of active PMR. She had a negative PET scan and a negative biopsy. Unable to do Actemra due to history of diverticulitis. Currently on methotrexate and tolerating well. Due to her set increase in inflammatory markers we will slow down her prednisone taper Plan - Prednisone: 12 mg for 4 weeks then 10 mg for 4 weeks then decrease by 1 mg every 4 weeks - Methotrexate 15mg weekly - Folic acid 1 mg daily - RTC 3 months - labs before visit: CBC, CMP, ESR, CRP (2) Polymyalgia rheumatica: Comment: onset around 10/2022 elevated ESR and CRP. ++DAREN Prednisone tapered off 12/2023 Code(s): M35.3 - Polymyalgia rheumatica Category: Surgical Plan: #PMR Patient with history of PMR currently in remission. (3) Encounter for methotrexate monitoring: Code(s): Z51.81 - Encounter for therapeutic drug level monitoring; Z79.631 - dough sheeter (current) use of antimetabolite agent Plan: #Long-term Current Use of Methotrexate Discussed with patient the benefits and risks of methotrexate for managing their rheumatic condition Benefits include reduced pain, reduced mortality, maintenance of remission and reduction of flares Risks include oral ulcers, photosensitivity, hepatotoxicity, hematologic toxicity, pneumonitis, flu-like symptoms (especially day after administration), nodulosis, lymphomas ? Limit alcohol and avoid Bactrim ? Monitoring: ?CBC, BMP, LFTs every 3-4 months and hepatitis serologies as needed (4) care home (current) use of systemic steroids: Code(s): Z79.52 - dough sheeter (current) use of systemic steroids Category: Medical Plan: #Long-term Use of Steroids Discussed with patient the risks and benefits of steroid for managing the rheumatic condition Benefits include: - Reduced pain, improved mobility, increased participation in activities, and decreased progression of disease Risks include: - GI upset, potential ultrasound worsening or formation (especially in patients > 65 years old), elevated blood pressure/worsening hypertension, elevated blood sugar/worsening diabetes control, worsening of bone density, elevated lipids/worsening triglycerides, cataract formation, weight gain Recommended using proton pump inhibitors (PPIs) for the duration of steroid use to reduce the risk of gastric ulcers and vitamin-D daily to reduce the risk of osteoporosis Labs checked: ?A1c, T spot, hepatitis-B and C serologies Pneumocystis jiroveci prophylaxis: ?Patient with risk factors including steroids greater than 50 mg for more than 30 days, age greater than 60 years, and lung involvement from underlying rheumatic disease requires prophylaxis and will be given so Plan I spent 32 minutes reviewing the record and labs, taking a history, examining the patient, discussing the treatment plan, answering questions and documenting in the medical record Orders: Orders Complete Blood Count Auto Diff 3 Months M31.6 - Other giant cell arteritis, Z51.81 - Encounter for therapeutic drug level monitoring, Z79.631 - dough sheeter (current) use of antimetabolite agent Comprehensive Met. Panel 3 Months M31.6 - Other giant cell arteritis, Z51.81 - Encounter for therapeutic drug level monitoring, Z79.631 - care home (current) use of antimetabolite agent C Reactive Protein 3 Months M31.6 - Other giant cell arteritis, Z51.81 - Encounter for therapeutic drug level monitoring, Z79.631 - dough sheeter (current) use of antimetabolite agent Erythrocyte Sedimentation Rate 3 Months M31.6 - Other giant cell arteritis, Z51.81 - Encounter for therapeutic drug level monitoring, Z79.631 - care home (current) use of antimetabolite agent Medications: New prednisone Take (12.5mg daily) 2 tablets in the morning and half a tablet in the evening for 4 weeks, then take (10mg daily) 1 tablet in the morning and 1 tablet in the evening for 4 weeks, then take 1 tablet daily with the 1 mg tablets to make up 9mg for 4 weeks 5 mg PO DIRECTED 156 tabs 0RF M31.6 - Other giant cell arteritis prednisone 1 mg orally; Take 4 tablets daily with the 5 mg tablets when you reach the 9 mg prednisone taper 120 tabs 0RF M31.6 - Other giant cell arteritis Refilled folic acid 1 mg PO DAILY 90 tabs 1RF M31.6 - Other giant cell arteritis methotrexate sodium 15 mg (6 x 2.5 mg) PO QWEEK 90 days 78 tabs 1RF M31.6 - Other giant cell arteritis Discontinued prednisone Take 3 tablets in the morning and 3 tablets in the evening for 1 week, then 3 tablets in the morning 2 tablets in the evening for 1 week, then 2 tablets in the morning 2 tablets in the evening for 1 week, then 2 tablets in the morning 1-1/2 tablets in the evening for 2 weeks Discontinued Reason: Doctor's Order 5 mg PO DIRECTED 130 tabs 0RF M31.6 - Other giant cell arteritis Coding Level of Care Code Est Pt Level 4 (18717) Complex EM visit Add On G2211 Diagnoses Giant cell arteritis M31.6 Polymyalgia rheumatica M35.3 Encounter for methotrexate monitoring Z51.81; Z79.631 care home (current) use of systemic steroids Z79.52
[2024-06-22 09:01] VITALS: BP 122/70; PULSE 79; RESP 18; O2SAT 98; BMI 30.2
--- OUTSIDE RECORDS SUMMARY | 2024-06-22 09:29 | XMS_ITS | Clinical Summary ---
Author Organization [facility] Address [address] [place] [address] Phone Care Team Providers Care Die Filer Name Role Phone Belia Villavicencio MD Primary Care Prov ider Allergies Active Allergy Reactions Criticality Noted Date Comments Gluten Itching,GI intolerance 01/03/2024 Hydralazine Cardiac Issue High 02/16/2024 Severe chest pain Eqczjna-Urn-Hea Reductase Inhibitors Muscular Issues High 01/08/2023 Sulfa [...] Giant cell arteritis with po lymyalgia rheumatica ([facility] V24, [facility] V28) 12/29/2022 Overview (01/11/2024): 12/28 - engaged with Dr. Reeves of rheumatology at [place] Palpitations 03/30/2022 Positive DAREN (antinuclear antibody) 06/18/2021 Obesity (BMI 30.0-34.9) 06/17/2021 Obstructive sleep apnea 06/17/2021 Overview (01/11/2024): Using CPAP (June 2021) Lumbago 10/29/2009 Radiculitis, lumbosacral 10/29/2009 Anemia 10/04/2009 Rheumatoid arthritis ([facility] V24, [facility] V28) 10/04/2009 Hypercholesteremia 10/04/2009 Assessment & Plan [...] 06/20/2024 11:30 AM EDT Office Visit Adult [address] [phone] Reji Ramirez PA Excessive ear wax, left (Primary Dx) 06/16/2024 9:45 AM EDT Office Visit [address] [phone] Belia Villavicencio MD Primary hypertension (Primary Dx); Rheumatoid arthritis, involving unspecified site, unspecified whether rheumatoid factor present ([facility] V24, [facility] V28); Excessive ear wax, left 06/05/2024 9:20 AM EDT Office Visit [facility] - [facility] [address] [facility] [address] [place] [phone] Srinath Mercado MD Primary hypertension (Primary Dx); Cardiomegaly; Hypercholesteremia 06/01/2024 1:40 PM EDT Office Visit Gastroenterology - [place] 175 [facility] 175 [facility] [address] [place] [phone] Sylvain Laws PA History of repair of hiatal hernia (Primary Dx); Diverticulosis; PMR (polymyalgia rheumatica) ([facility] V24); Rheumatoid arthritis with positive rheumatoid factor, involving unspecified site ([facility] V24, [facility] V28); Celiac disease; Gassiness; Burping 05/23/2024 9:12 AM EDT - 05/23/2024 12:26 PM EDT Emergency [facility] Emergency [address] [place] [phone] Corey Wharton MD Asymptomatic hypertension (Primary Dx) Discharge Disposition: Home or Self Care 05/05/2024 10:30 AM EST Office Visit [address] [phone] Belia Villavicencio MD Primary hypertension (Primary Dx); Giant cell arteritis with polymyalgia rheumatica ([facility] V24, [facility] V28); Panic disorder (episodic paroxysmal anxiety) 05/02/2024 Telephone Adult [address] [phone] Belia Villavicencio MD Hypertension 04/24/[address] [phone] Belia Villavicencio MD Return Call From Center/Facility 04/24/2024 Telephone [facility] - [address] [place] [phone] Olivia Montano NP 04/24/2024 Nurse Triage [address] [phone] Belia Villavicencio MD [facility] 04/18/2024 11:18 AM EST - 04/18/2024 11:59 PM EST Hospital Encounter CT Scan - [address] [phone] Chronic nonintractable headache, unspecified headache type Discharge Disposition: Home or Self Care 04/17/[address] [address] Belia Villavicencio MD Faxed Order Mammogram and Ultrasound 04/12/2024 3:30 PM EST Office Visit [facility] - [place] [address] [place] [address] Sue Williamson NP Acute non-recurrent maxillary sinusitis (Primary Dx) 03/30/2024 12:29 PM EST - 03/30/2024 11:59 PM EST Hospital Encounter Radiology Department - [address] [phone] Submandibular gland mass Discharge Disposition: Home or Self Care 03/28/2024 2:30 PM EST Office Visit Adult [address] [phone] Belia Villavicencio MD Rheumatoid arthritis, involving unspecified site, unspecified whether rheumatoid factor present ([facility] V24, [facility] V28) (Primary Dx); Primary hypertension; Celiac disease; Iron deficiency; Hypothyroidism, unspecified type; Submandibular gland mass; Rash 03/27/2024 1:30 PM EST Telemedicine Adult Medicine - [place] [address] [place] [phone] Medicare annual wellness visit, subsequent (Primary Dx) 03/27/2024 Telephone Adult [facility] - [place] [address] [place] [phone] Mary Devries [place] Medicare Annual Wellness Visit [...] pressure) depen dence Celiac disease Rheumatoid arthritis ([facility] V24, [facility] V28) 01/2024 Family History Medical History Relation [...] your loved ones. For example, child care sitter or elderly care for an older adult? [...] 06/27/2024 10:00 AM EDT Ancillary Procedure [facility] - [facility] [address] [facility] [address] [place] [address] 09/29/2024 1:15 PM EDT Office Visit Adult Medicine - [address] [phone] Belia Villavicencio MD [address] [place] [address] Health Maintenance Due Date Last Done Comments [...] this topic Medical Devices Implanted Type Area Programming Specialist Device Identifier Shelf Expiration Date Model / Serial / Lot Sealant Fibrin Vistaseal 10ml - [id number] - [id number] Implanted:Qty: 1 on 01/18/2024 by Emily Ho MD at [facility] Hemostasis N/A: Abdomen [employer] [id number] 09/13/2025 VST10 / [id number] / [id number] Tissue Ovitex 1s Perm 6x10cm - Sna - [id number] Implanted:Qty: 1 on 01/18/2024 by Emily Ho MD at [facility] Surgical Mesh Sling Implants N/A: Abdomen [employer] [id number] 07/05/2025 [id number] / NA / [id number] 1 Procedures Procedure Name Priority Date/Time Associated Diagnosis Comments EXTERNAL CLINICAL LAB 06/21/2024 ECG ANNOTATED 05/26/2024 MAGNESIUM STAT 05/23/2024 11:17 [...] EST Acute non-recurrent maxillary sinusitis POC RAPID [id number], MOLECULAR Routine 04/13/2024 9:54 AM EST Acute [...] Recently Relevant to Health Maintenance Results * External clinical lab (06/21/2024) Provider [facility] LAB BLOOD ORDERABLES Fin al Result * ECG-Annotated (05/26/2024) Provider [facility] ECG ORDERABLES Final Result * Magnesium (05/23/2024 11:17 AM EDT) Magnesium 2.0 1.9 - 2.6 mg/dL LAB CHEMISTRY METHOD 05/23/2024 11:48 AM EDT [facility] Blood Venous blood specimen / Unknown Venipuncture / Unknown 05/23/2024 11:17 AM EDT 05/23/2024 11:21 AM EDT Corey Wharton MD LAB BLOOD ORDERABLES Molly l Result [facility] [address] [place] [address], * (ABNORMAL) Basic metabolic panel (05/23/2024 11:17 AM EDT) Sodium 129(L) 133 - 145 mmol/L LAB CHEMISTRY METHOD 05/23/2024 11:53 AM [facility] Potassium 4.3 3.5 - 5.5 mmol/L LAB CHEMISTRY METHOD 05/23/2024 11:53 AM [facility] Chloride 95(L) 96 - 110 mmol/L LAB CHEMISTRY METHOD 05/23/2024 11:53 AM [facility] CO2 24 21 - 32 mmol/L LAB CHEMISTRY METHOD 05/23/2024 11:53 AM [facility] Anion Gap 10 3 - 11 LAB CHEMISTRY METHOD 05/23/2024 11:53 AM [facility] Glucose 101(H) 70 - 100 mg/dL LAB CHEMISTRY METHOD 05/23/2024 11:53 AM [facility] BUN 16 5 - 25 mg/dL LAB CHEMISTRY METHOD 05/23/2024 11:53 AM [facility] Creatinine 0.59 0.50 - 1.10 mg/dL LAB CHEMISTRY METHOD 05/23/2024 11:53 AM [facility] eGFR 98 >=60 mL/min/1. 73m2 LAB CHEMISTRY METHOD 05/23/2024 11:53 AM [facility] Comment:Calculation based on the??Chronic Kidney Disease Epidemiology Collaboration (CKD-EPI) equation refit??without adjustment for race. BUN/Creatinine Ratio 27.1 LAB CHEMISTRY METHOD 05/23/2024 11:53 AM [facility] Calcium 9.3 8.5 - 10.5 mg/dL LAB CHEMISTRY METHOD 05/23/2024 11:53 AM [facility] Blood Venous blood specimen / Unknown Venipuncture / Unknown 05/23/2024 11:17 AM EDT 05/23/2024 11:21 AM EDT Corey Wharton MD LAB BLOOD ORDERABLES Molly l Result Performing Organization Address [facility] Co de Phone Number [facility] [address] [place] [address], [place] [phone] * ECG 12 lead (05/23/2024 9:55 AM EDT) Ventricular Rate ECG 54 BPM GEMUSE Atrial Rate 54 BPM GEMUSE P-R Interval 184 ms GEMUSE QRS Duration 70 ms GEMUSE Q-T Interval 400 ms GEMUSE QTc 379 ms GEMUSE P Wave Bern 2 degrees GEMUSE R Bern 4 degrees GEMUSE T Bern 39 degrees GEMUSE ECG Interpretation Sinus bradycardia Possible Inferior infarct , age undetermined Abnormal ECG When compared with ECG of 09-FEB-2024 02:06, PA interval has decreased Vent. rate has decreased BY ??31 BPM Nonspecific T wave abnormality no longer evident in Inferior leads QT has shortened Confirmed by MD Rogelio, Clark ([id number]) on 05/24/2024 10:19:54 AM GEMUSE 05/23/2024 9:55 AM EDT 05/24/2024 10:19 AM EDT Corey Wharton MD ECG ORDERABLES Final Res ult Performing Organization Address City/[facility]/ZIP Co de Phone Number GEMUSE * (ABNORMAL) CBC auto differential (05/23/2024 9:25 AM EDT) WBC 13.2(H) 4.8 - 10.8 K/[facility] LAB HEMETOLOGY METHOD 05/23/2024 10:46 AM EDT [facility] RBC 5.00(H) 3.80 - 4.80 M/[facility] LAB HEMETOLOGY METHOD 05/23/2024 10:46 AM EDT [facility] Hemoglobin 13.7 11.5 - 16.0 g/dL LAB HEMETOLOGY METHOD 05/23/2024 10:46 AM [facility] Hematocrit 41.0 35.0 - 47.0 % LAB HEMETOLOGY METHOD 05/23/2024 10:46 AM [facility] MCV 82.0 79.0 - 98.0 FL LAB HEMETOLOGY METHOD 05/23/2024 10:46 AM [facility] MCH 27.4 27.0 - 32.0 pcg LAB HEMETOLOGY METHOD 05/23/2024 10:46 AM [facility] MCHC 33.4 32.0 - 37.0 g/dL LAB HEMETOLOGY METHOD 05/23/2024 10:46 AM [facility] RDW 15.2(H) 11.0 - 15.0 % LAB HEMETOLOGY METHOD 05/23/2024 10:46 AM [facility] Platelets 377 130 - 400 K/mcL LAB HEMETOLOGY METHOD 05/23/2024 10:46 AM [facility] MPV 10.9 7.0 - 11.0 FL LAB HEMETOLOGY METHOD 05/23/2024 10:46 AM [facility] NRBC 0.0 <1.0 % LAB HEMETOLOGY METHOD 05/23/2024 10:46 AM [facility] NRBC Absolute 0.00 <0.10 K/mcL LAB HEMETOLOGY METHOD 05/23/2024 10:46 AM [facility] Neutrophils Relative 73.4 % LAB HEMETOLOGY METHOD 05/23/2024 10:46 AM [facility] Lymphocytes Relative 18.9 % LAB HEMETOLOGY METHOD 05/23/2024 10:46 AM [facility] Monocytes Relative 6.2 % LAB HEMETOLOGY METHOD 05/23/2024 10:46 AM EDT [facility] Eosinophils Relative 0.2 % LAB HEMETOLOGY METHOD 05/23/2024 10:46 AM EDT [facility] Basophils Relative 0.2 % LAB HEMETOLOGY METHOD 05/23/2024 10:46 AM EDT [facility] Immature Granulocytes Relative 1.1 % LAB HEMETOLOGY METHOD 05/23/2024 10:46 AM EDT [facility] Neutrophils Absolute 9.66(H) 1.50 - 7.00 K/mcL LAB HEMETOLOGY METHOD 05/23/2024 10:46 AM EDT [facility] Lymphocytes Absolute 2.48 1.00 - 5.00 K/mcL LAB HEMETOLOGY METHOD 05/23/2024 10:46 AM EDT [facility] Monocytes Absolute 0.81 0.20 - 1.00 K/mcL LAB HEMETOLOGY METHOD 05/23/2024 10:46 AM EDT [facility] Eosinophils Absolute 0.03 0.00 - 0.50 K/mcL LAB HEMETOLOGY METHOD 05/23/2024 10:46 AM EDT [facility] Basophils Absolute 0.03 0.00 - 0.20 K/mcL LAB HEMETOLOGY METHOD 05/23/2024 10:46 AM EDT [facility] Immature Granulocytes Absolute 0.14(H) 0.00 - 0.03 K/mcL LAB HEMETOLOGY METHOD 05/23/2024 10:46 AM EDT [facility] Blood Venous blood specimen / Unknown Venipuncture / Unknown 05/23/2024 9:25 AM EDT 05/23/2024 10:35 AM EDT us Corey Wharton MD LAB BLOOD ORDERABLES Molly l Result [facility] [address] [place] [address], * CT Head wo Contrast (04/18/2024 11:40 [...] Signed Date: 04/18/2024 12:21 ET Workstation ID: [id number] Transcribed By: Self Edit Transcribed Date: 04/18/2024 [...] Signed Date: 04/18/2024 12:21 ET Workstation ID: [id number] Transcribed By: Self Edit Transcribed Date: 04/18/2024 11:58 ET Belia Villavicencio MD IMG CT PROCEDURES Final Result * POC Influenza A/B manually resulted (04/13/2024 9:55 AM EST) Rapid Influenza A AGN POC Negative Negative Rapid Influenza B AGN POC Negative Negative Swab 04/13/2024 9:55 AM EST Sue Williamson NP POINT OF CARE TEST ENTER/EDIT ORDERABLES Final Result * Poc Rapid [id number], MOLECULAR (04/13/2024 9:54 AM EST) COVID-19/SARS- COV-2 Rapid POC Negative Negative Swab Nasopharyngeal structure / Unknown 04/13/2024 9:54 AM EST Sue Williamson DEEP SUBMERGENCE VEHICLE CREWMEMBER POINT OF CARE TEST ENTER/EDIT ORDERABLES Final [...] Signed Date: 03/30/2024 13:21 ET Workstation ID: [id number] Transcribed By: Self Edit Transcribed Date: 03/30/2024 [...] Signed Date: 03/30/2024 13:21 ET Workstation ID: [id number] Transcribed By: Self Edit Transcribed Date: 03/30/2024 13:20 ET us Belia Villavicencio MD [facility] US PROCEDURES Final Result * Thyroid stimulating [...] ORDERABL ES Final Result Performing Organization Address [facility]/ZIP Co de Phone Number [facility] [address] [place] [address], [place] [phone] * (ABNORMAL) Iron and TIBC (03/28/2024 3:27 [...] ORDERABL ES Final Result Performing Organization Address [facility] de Phone Number [facility] [address] [place] [address], [place] [phone] * Helicobacter pylori breath test (03/28/2024 3:27 PM EST) H Pylori Breath Test Negative Negative LAB CHEMISTRY METHOD 03/29/2024 11:27 AM EST [facility] Breath Oral cavity structure / Unknown Non-blood Collection / Unknown 03/28/2024 3:27 PM EST 03/28/2024 3:27 PM EST Sylvain DAILY LAB BODY FLUIDS AND STOOLS ORDE RABBIENVENIDO Final Result [facility] [address] [place] [address], * (ABNORMAL) Lipid panel (09/20/2023) LDL/HDL Ratio [...] Region Laterality Modality Other us Historical Provider MD HEALTH MAINTENANCE Final Result [...] classified as having normal bone density. The [facility] Department of Internal Medicine recommends [...] classified as having normal bone density. The [facility] Department of Internal Medicine recommendsusing [...] R esult * Hepatitis C Screening (09/18/2020) Pathologist [facility] Hepatitis C Screening abstracted Historical Provider MD HEALTH MAINTENANCE Final Result from Last 3 Months or Most Recently Relevant to Health Maintenance Insurance MEDICAID - [place] [employer] MEDICARE Advance Directives Documents on File Type Date Recorded Patient Nail Assembly Machine Operator Expl anation Health Care Decision (hx) [...] Esteves Spouse Health Care Agent Care Teams Die Filer Relationship Specialty Start Date End Date Belia Villavicencio MD [address] [place] [address] PCP - General Internal Medicine 01/17/24
--- OUTSIDE RECORDS SUMMARY | 2024-06-22 09:30 | XMS_ITS | Encounter Summary ---
Author Organization [facility] [place] [address] Care Team Providers Care Mine Motor Operator Name Role Phone Belia Villavicencio MD Primary Care Prov ider Reason for Visit * Reason Comments Cerumen Impaction Encounter Details Date Type Department Care Team (Late st Contact Info) Description 06/20/2024 11:30 AM EDT Office Visit Adult Medicine - [place] [address] [place] [phone] Reji Ramirez PA [address] [place] [address] Excessive ear wax, left (Primary Dx) Social [...] for your loved ones. For example, children's librarian or elderly care for an older adult? [...] 12/27/2023 Giant cell arteritis with polymyalgia rheumatica ([facility] V24, [facility] V28) 12/29/2022 Palpitations 03/30/2022 Positive DAREN (antinuclear antibody) 06/18/2021 Obesity (BMI 30.0-34.9) 06/17/2021 Obstructive sleep apnea 06/17/2021 Lumbago 10/29/2009 Radiculitis, lumbosacral 10/29/2009 Anemia 10/04/2009 Rheumatoid arthritis ([facility] V24, [facility] V28) 10/04/2009 Hypercholesteremia 10/04/2009 Hypertension 10/04/2009 Hypothyroid [...] time each day.30 each 11 ALLERGIES: Hydralazine, Kcejkgf-ayz-naq reductase inhibitors, Gluten, and Sulfa (sulfonamide antibiotics) [...] Description 06/27/2024 10:00 AM EDT Ancillary Procedure [facility] - [address] [place] [address] 09/29/2024 1:15 PM EDT Office Visit Adult Medicine - [place] [address] [place] [address] Belia Villavicencio MD [address] [place] [address] Scheduled Orders Name Type Priority Associated Diagnoses [...] documented as of this encounter Care Teams Mine Motor Operator Relationship Specialty Start Date End Date Belia Villavicencio MD [address] [place] [address] PCP - General Internal Medicine 01/17/24 documented as of this encounter
--- OUTSIDE RECORDS SUMMARY | 2024-06-22 09:30 | XMS_ITS | Patient Health Record ---
Author Organization [facility] Address [address] [facility] [address] [place] [address] Care Team Providers Care Pond Worker Name Role Phone SHANIQUA FERNANDEZ MD Primary Care Provider Unavail able Heena Brasher Unavailable [phone] Reason For Referral No Information Medications Medication [...]
--- OUTSIDE RECORDS SUMMARY | 2024-06-22 09:30 | XMS_ITS | Clinical Summary ---
Author Organization [facility] Address [address] [place] [address] Care Team Providers Care Steam Tunnel Feeder Name Role Phone Urvashi Paredes NP Primary Care Provider [phone] Allergies Active Allergy Reactions Criticality Noted Date [...] age to complete this topic Care Teams Steam Tunnel Feeder Relationship Specialty Start Date End Date Urvashi Paredes, MATERIAL HANDLING CREW SUPERVISOR [address] [place] [address] PCP - General Nurse Practitioner 08/10/20
== END 2024-06-22 09:34 | disposition home or self-care (01) ==
LOC: HO.RHE 08:48
PROVIDERS: PCP Internal Medicine; Visit Provider Student in an Organized Health Care Education/Training Program
DX: M31.6 Other giant cell arteritis (principal); M35.3 Polymyalgia rheumatica; Z51.81 Encounter for therapeutic drug level monitoring; Z79.631 Long term (current) use of antimetabolite agent; Z79.52 Long term (current) use of systemic steroids
CPT/HCPCS: 99214; G2211

== ENCOUNTER → 2024-06-22 08:47 | Outpatient (BNVA) | payer OTHER, SELFPAY | PROVIDERS: PCP Internal Medicine; Visit Provider Student in an Organized Health Care Education/Training Program | DX: M31.6 Other giant cell arteritis (principal); M35.3 Polymyalgia rheumatica; Z51.81 Encounter for therapeutic drug level monitoring; Z79.631 Long term (current) use of antimetabolite agent; Z79.52 Long term (current) use of systemic steroids | CPT/HCPCS: 99212 ==

== ENCOUNTER 2024-10-09 09:45 | Outpatient (REF) | payer OTHER, SELFPAY ==
--- OUTSIDE RECORDS SUMMARY | 2024-10-09 10:19 | XMS_ITS | Clinical Summary ---
Author Organization [facility] [place] Address [address] [place] [address] Care Team Providers Care Sales And Leasing Agent Name Role Phone Urvashi Paredes NP Primary Care Provider [phone] Allergies Active Allergy Reactions Criticality Noted Date [...] 78 08/10/2020 9:49 AM EDT Temperature 35.9 C (96.7 F) 08/10/2020 9:49 AM EDT Respiratory Rate 16 08/10/2020 9:49 AM EDT [...] 1 - PCV) 07/22/2020 Influenza Vaccine (#1) 2024 RSV Adult > 60+ Yrs or Pregn ant (1 - 1-dose 75+ series) 07/22/2030 Hepatitis B Vaccines Aged Out No long er eligible based on patient's age to complete this topic RSV Ped < 20 months Aged Out No longe r eligible based on patient's age to complete this topic Care Teams Sales And Leasing Agent Relationship Specialty Start Date End Date Urvashi Paredes, DIETARY ASSISTANT [address] [place] [address] PCP - General Nurse Practitioner 08/10/20
--- OUTSIDE RECORDS SUMMARY | 2024-10-09 10:19 | XMS_ITS | Patient Health Record ---
Author Organization [facility] Address [address] [facility] [address] [place] [address] Care Team Providers Care Safe Expert Name Role Phone SHANIQUA FERNANDEZ MD Primary Care Provider Unavail able Heena Brasher Unavailable [phone] Reason For Referral No Information Medications Medication [...] 0.025 MG/24HR 1 patch to skin Transdermal weekly; Duration: 30 day(s) 03/21/2015 Active Omeprazole 20 MG [...]
--- OUTSIDE RECORDS SUMMARY | 2024-10-09 10:19 | XMS_ITS ---
[facility] Name [facility] Care Team Organization Name Specialty Phone Email Start Date End Da te [facility] GIANFRANCO TOLENTINO Primary Care 01/13/2022 10/25/2023
--- OUTSIDE RECORDS SUMMARY | 2024-10-09 10:19 | XMS_ITS | Clinical Summary ---
Author Organization 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 30 each 11 02/14/20 24 025 Active ferrous sulfate 325 mg (65 mg elemental iron) tablet TAKE 1 TABLET BY MOUTH EVERY DAY 90 tablet 1 03/22/19 25 Active lisinopriL (PRINIVIL,ZESTR IL) 5 mg tablet Take 1 tablet (5 mg total) by mouth 1 (one) time each day. 30 each 5 05/05/19 25 026 Active predniSONE (DELTASONE) 1 mg tablet Take 1 tablet (1 mg total) by mouth 1 (one) time each day. 11/15/19 24 Active methotrexate 2.5 mg tablet Take 6 tablets (15 mg total) by mouth 1 (one) time per week 05/12/19 25 Active folic acid (FOLVITE) 1 mg tablet Take by mouth 1 (one) time each day. Active calcium citrate-vitamin D (CITRACAL+D) 315 mg-5 mcg (200 unit) per tablet Take 1 tablet by mouth 1 (one) time each day. Active levothyroxine (SYNTHROID, LEVOTHROID) 100 mcg tablet Take 1 tablet (100 mcg total) by mouth 1 (one) time each day before breakfast. 90 tablet 1 06/03/19 25 Active dicyclomine (BENTYL) 10 mg capsule TAKE 1 CAPSULE BY MOUTH 3 TIMES A DAY WITH MEALS AND AT BEDTIME NEEDED FOR ABDOMINAL PAIN 270 capsule 1 08/07/19 25 Active clonazePAM (KlonoPIN) 0.5 mg tabletIndicatio ns:Panic disorder (episodic paroxysmal anxiety) TAKE 1 TABLET (0.5 MG TOTAL) BY MOUTH 3 TIMES A DAY MAX DAILY AMOUNT: 1.5 MG 90 tablet 2 08/05/19 25 Active sucralfate (CARAFATE) 100 mg/mL suspension Take 10 mL (1 g total) by mouth 4 (four) times a day (before meals and nightly) for 10 days. 400 mL 10/04/19 25 025 Active cetirizine (ZyrTEC) 10 mg tablet Take 1 tablet (10 mg total) by mouth at bedtime. 90 tablet 10/07/19 25 Active cetirizine (ZyrTEC) 10 mg tablet Take 1 tablet (10 mg total) by mouth 1 (one) time each day if needed for allergies. 11/11/19 24 025 Discontinued atenoloL (TENORMIN) 25 mg tablet Take 0.5 tablets (12.5 mg total) by mouth 1 (one) time each day. 07/22/19 24 025 Discontinued( erapy completed) omeprazole (PriLOSEC) [address] capsule TAKE 1 CAPSULE BY MOUTH TWICE A DAY 180 capsule 1 09/12/19 25 025 Discontinued( erapy completed) hydrALAZINE (APRESOLINE) 25 mg tabletIndicatio ns:Transient cerebral ischemic attack, unspecified TAKE 1 TABLET BY MOUTH TWICE A DAY 180 tablet 1 09/13/19 25 025 Discontinued(Fo rmulary change) omeprazole (PriLOSEC) [address] capsule Take 1 capsule (20 mg total) by mouth 2 (two) times a day. 06/16/19 25 025 Discontinued(Th erapy completed) hydrALAZINE (APRESOLINE) 25 mg tablet Take 1 tablet (25 mg total) by mouth 2 (two) times a day. 06/16/19 025 Discontinued(Th erapy completed) cetirizine (ZyrTEC) 10 mg tablet TAKE 1 TABLET BY MOUTH EVERYDAY AT BEDTIME 90 tablet 09/13/19 025 Discontinued(Re order) azithromycin (ZITHROMAX) 250 mg tablet Take 2 tablets (500 mg total) by mouth 1 (one) time each day for 1 day, THEN 1 tablet (250 mg total) 1 (one) time each day for 4 days. 6 each 10/04/19 25 025 Active Problems Problem Noted Date Diagnosed [...] Giant cell arteritis with po lymyalgia rheumatica ([facility] V24, [facility] V28) 12/29/2022 Overview (01/11/2024): 12/28 - engaged with Dr. Reeves of rheumatology at [place] Palpitations 03/30/2022 Positive DAREN (antinuclear antibody) 06/18/2021 Obesity (BMI 30.0-34.9) 06/17/2021 Obstructive sleep apnea 06/17/2021 Overview (01/11/2024): Using CPAP (June 2021) Lumbago 10/29/2009 Radiculitis, lumbosacral 10/29/2009 Anemia 10/04/2009 Rheumatoid arthritis ([facility] V24, [facility] V28) 10/04/2009 Hypercholesteremia 10/04/2009 Assessment & Plan [...] Encounters Date Type Department Care Team Description 10/09/2024 7:57 AM EDT Hospital Encounter [facility] Xray [address] [place] [phone] Dysphagia, unspecified type 10/03/2024 8:12 AM EDT - 10/03/2024 12:42 PM EDT Emergency [facility] Emergency [address] [place] [phone] Zain Pagan MD Esophageal pain (Primary Dx); Pneumonia due to infectious organism, unspecified laterality, unspecified part of lung Discharge Disposition: Home or Self Care 10/03/2024 Telephone Gastroenterology - 299 [facility] 299 [facility] [address] [place] [phone] Loretta Duron MD 10/02/2024 Telephone Gastroenterology [facility] 175 [facility] 175 [facility] [address] [place] [phone] Silvia Mcfarlane PA provider call back 09/29/2024 1:15 PM EDT Office Visit Adult [facility] [address] [place] [phone] Belia Villavicencio MD Rheumatoid arthritis, involving unspecified site, unspecified whether rheumatoid factor present (CMS/[facility] V24, [facility] V28) (Primary Dx); Gastroesophageal reflux disease without esophagitis; Hypothyroidism, unspecified type; Obstructive sleep apnea 07/25/2024 6:35 AM EDT - 07/25/2024 11:59 PM EDT Hospital Encounter [facility] Ultrasound [address] [place] [phone] Celiac disease; NAFLD (nonalcoholic fatty liver disease) Discharge Disposition: Home or Self Care 07/24/2024 Telephone Adult [facility] [address] [place] [address] Belia Villavicencio MD Med Question 07/24/2024 Telephone Adult [facility] [address] [place] [phone] Belia Villavicencio MD 07/14/2024 10:55 AM EDT Lab Draw Station - 175 [facility] 175 [facility] [address] [place] [phone] Celiac disease; NAFLD (nonalcoholic fatty liver disease) 07/12/2024 2:20 PM EDT Office Visit Gastroenterology [facility] 175 [facility] 175 [facility] [address] [place] [phone] Silvia Mcfarlane PA Celiac disease (Primary Dx); NAFLD (nonalcoholic fatty liver disease); Irritable bowel syndrome with diarrhea from Last 3 Months Immunizations Name Administration [...] pressure) depen dence Celiac disease Rheumatoid arthritis (CMS/HCC V24, CMS/HCC V28) 01/2024 Family History Medical History Relation [...] Sign Reading Time Taken Comments Blood Pressure 124/72 10/03/2024 12:38 PM EDT Pulse 76 10/03/2024 12:38 PM EDT Temperature 36.7 C (98.1 F) 10/03/2024 12:38 PM EDT Respiratory Rate 18 10/03/2024 12:38 PM EDT Oxygen Saturation 98% 10/03/2024 12:38 PM EDT Inhaled Oxygen Concentration - - Weight 74.8 kg (165 lb) 10/03/2024 5:34 AM EDT Height 157.5 cm (5' 2 ) 10/03/2024 5:34 AM EDT Body Mass Index 30.18 10/03/2024 5:34 AM EDT Plan of Treatment Upcoming Encounters Date Type Department Care Team (Late st Contact Info) Description 10/11/2024 3:30 PM EDT Appointment [facility] Endoscopy [address] [place] [phone] Loretta Duron MD [address] [address] 01/01/2025 1:15 PM EDT Office Visit Adult Medicine - [place] [address] [place] [address] Caro Vallecillo PA [address] [place] [address] 01/08/2025 1:40 PM EST Office Visit Gastroenterology - [place] 175 [facility] 175 [facility] [address] [place] [phone] Silvia Mcfarlane PA 175 [facility] [address] [place] [address] Health Maintenance Due Date Last Done Comments [...] 06/20/2020, Additional history exists Influenza Vaccine (#1) 2024 , 01/28/2021, 04/04/2020, Additional history exists Falls Risk Assessment 03/27/2025 03/27/2024, 024 Medicare Annual Wellness Visit 03/27/2025 03/27/2024 Social Influencers of Health Screening 03/27/2025 03/27/2024 Hypertension/CHF/CAD Annual BMP Blood Test 10/03/2025 10/03/2024, 05/23/2024, 02/08/2024, Additional history exists Cholesterol Screening (Lipid Panel) 09/19/2028 09/20/2023, 09/20/2023 Osteoporosis Screening (Bone Density Screening) 03/05/2032 03/05/2022 Colorectal Cancer Screening: Colonoscopy 10/07/2032 10/07/2022 Hepatitis C Screening Completed 09/18/2020 Depression Screening Completed 03/27/2024 HIB Vaccines Aged Out No longer [...] this topic Medical Devices Implanted Type Area Public Health Professor Device Identifier Shelf Expiration Date Model / Serial / Lot Sealant Fibrin Vistaseal 10ml - [id number] - [id number] Implanted:Qty: 1 on 01/18/2024 by Emily Ho MD at [facility] Hemostasis N/A: Abdomen [employer] [facility] [employer] [id number] 09/13/2025 VST10 / [id number] / [id number] Tissue Ovitex 1s Perm 6x10cm - Sna - [id number] Implanted:Qty: 1 on 01/18/2024 by Emily Ho MD at [facility] Surgical Mesh Sling Implants N/A: Abdomen [employer] [id number] 07/05/2025 [id number] / NA / [id number] Procedures Procedure Name Priority Date/Time Associated Diagnosis Comments XR ESOPHAGRAM STAT 10/09/2024 8:44 AM EDT Dysphagia, unspecified type Procedure Note - Laith Middleton MD / Nona Kapadai PA - 10/09/2024 8:44 AM EDTThis note is in progress. FINDINGS: Double contrast esophagram performed. COMPARISON: Esophagram February 16, 2024 HISTORY: Patient is a 69-year-old female with history of hiatal herniarepair in January 2024 now with postprandial epigastric pain. Chief Warden radiographs: 1 view chest radiograph demonstrates cardiac andmediastinal contours within normal limits. Lungs are clear bilaterally.Costophrenic angles are sharp. There is elevation of the righthemidiaphragm, also seen on prior imaging from February 16, 2024.Cholecystectomy clips are present. There are moderate to severe bonydegenerative changes of the thoracolumbar spine noted. Aortic knob iscalcified. One view lateral soft tissue neck demonstrates no prevertebralsoft tissue masses. Airway is widely patent. There are mild bonydegenerative changes of the cervical spine noted, including anteriorosteophyte formation at the level of C5-6. Effervescent crystals were administered orally. Thick and thin barium wereadministered orally under fluoroscopic control. Pharyngoesophagram: Rapid sequence imaging of the hypopharynx duringswallowing demonstrates prompt initiation of swallowing. There is normalsoft palate elevation and normal epiglottic motion. There is no laryngealpenetration or fady aspiration. There is no residual in the vallecula norin the piriform sinuses. Thoracic esophagus: There is mild esophageal dysmotility. Normaldistensibility and mucosal pattern without evidence of ulceration,stricture or mass formation. Distal esophageal narrowing seen on priorimaging from February 2024 has since resolved. Hiatal hernia: None Reflux: Unable to elicit 13mm Barium pill: Swallowed without difficulty. Prompt passage of pillfrom the esophagus into the stomach. DAP: 313.2 uGym^2 IMPRESSION: Mild esophageal dysmotility No evidence of contrast leak, extravasation or residual hernia status postfundoplication with near total resolution of distal esophagealnarrowing/postsurgical edema seen on prior imaging from February 2024. -------- PRELIMINARY REPORT -------- Dictated By: Nona Kapadia Dictated Date: 10/09/2024 09:21 ET Assigned Physician: Laith Middleton Reviewed and Electronically Signed By: Signed Date: ET Workstation ID: [id number] Transcribed By: Self Edit Transcribed Date: 10/09/2024 09:31 ET Resident/PA/CREW MANAGER: Nona Kapadia ECG ANNOTATED 10/04/2024 ECG 12-LEAD STAT 10/03/2024 9:[address] CHEST W CONTRAST STAT 10/03/2024 9:[address] ABDOMEN PELVIS W CONTRAST STAT 10/03/2024 8:52 AM EDT TROPONIN I HIGH SENSITIVITY Timed 10/03/2024 8:24 AM EDT XR CHEST 2 VIEWS STAT 10/03/2024 6:33 AM EDT C-REACTIVE PROTEIN STAT Add-on 10/03/2024 5:51 AM EDT CBC WITH AUTO DIFFERENTIAL STAT 10/03/2024 5:51 AM EDT B-TYPE NATRIURETIC PEPTIDE STAT 10/03/2024 5:51 AM EDT MAGNESIUM STAT 10/03/2024 5:51 AM EDT TROPONIN I HIGH SENSITIVITY Timed 10/03/2024 5:51 AM EDT LIPASE STAT 10/03/2024 5:51 AM EDT COMPREHENSIVE METABOLIC PANEL STAT 10/03/2024 5:51 AM EDT CBC AND DIFFERENTIAL STAT 10/03/2024 5:51 AM EDT ECG 12-LEAD STAT 10/03/2024 5:40 AM EDT US ABDOMEN LIMITED Routine 07/25/2024 7:01 AM EDT Celiac disease NAFLD (nonalcoholic fatty liver disease) HEPATIC FUNCTION PANEL Routine 07/14/2024 10:51 AM EDT Celiac disease NAFLD (nonalcoholic fatty liver disease) LIPID PANEL Routine 09/20/2023 COLONOSCOPY Routine 10/07/2022 DXA BONE DENSITY STUDY 1+ SITS AXIAL SKEL Routine 03/05/2022 1:21 PM EST Encounter for screening for osteoporosis HEPATITIS C SCREENING Routine 09/18/2020 from Last 3 Months or Most Recently Relevant to Health Maintenance Results * ECG-Annotated (10/04/2024) us Provider Onbase MD ECG ORDERABLES Final Result * ECG 12 lead (10/03/2024 9:23 AM EDT) Only the most recent of2 resultswithin the time period is included. Ventricular Rate ECG 73 BPM GEMUSE Atrial Rate 73 BPM GEMUSE P-R Interval 220 ms GEMUSE QRS Duration 74 ms GEMUSE Q-T Interval 382 ms GEMUSE QTc 420 ms GEMUSE P Wave [place] 15 degrees GEMUSE R [place] 14 degrees GEMUSE T [place] 24 degrees GEMUSE ECG Interpretation Sinus rhythm with 1st degree A-V block Cannot rule out Anterior infarct , age undetermined Abnormal ECG When compared with ECG of 03-OCT-2024 05:40, [place] interval has increased Confirmed by MD Mercado Christopher ([id number]) on 10/03/2024 5:49:47 PM GEMUSE 10/03/2024 9:23 AM EDT 10/03/2024 5:49 PM EDT us Zain Pagan MD ECG ORDERABLES Final Resul t GEMUSE * CT Chest w Contrast (10/03/2024 9:00 AM EDT) Anatomical Region Laterality Modality Body Computed Tomogra phy 10/03/2024 9:21 AM EDT Impressions 10/03/2024 9:30 AM EDT There is a small area of consolidation with volume loss in the right upper lobe which could represent atelectasis or a small area of pneumonia. There is no edema. There are some reticular lower lung zone opacities which are improved when compared to 02/09/24. There is no definite recurrent hiatal hernia. There is some distal esophageal wall thickening -------- FINAL REPORT -------- Dictated By: Brady Bernal Dictated Date: 10/03/2024 09:21 ET Assigned Physician: Brady Bernal Reviewed and Electronically Signed By: Brady Bernal Signed Date: 10/03/2024 09:30 ET Workstation ID: [id number] Transcribed By: Self Edit Transcribed Date: 10/03/2024 09:21 ET Narrative 10/03/2024 9:30 AM EDT EXAMINATION: CT CHEST WITH CONTRAST CLINICAL INFORMATION: Esophageal mass. Epigastric pain. Prior hiatal hernia repair COMPARISON: Portions of a CT angiogram 02/09/24 TECHNIQUE: Multidetector CT. Examination of the chest. Examination of the chest following the IV administration of nonionic contrast. Reformatting in the coronal and sagittal planes. DLP: 871 mGy-cm Dose optimization was performed including the use of low-dose iterative reconstruction technique with automatic exposure control based on patient size. Type of contrast: ISOVUE 370 Volume of IV contrast: 90 mL Volume of contrast discarded: 0 mL FINDINGS: LUNG: No abnormality of the trachea or mainstem bronchi. There are a few scattered micronodules measuring 0.3 cm or less. In a low risk patient these do not require any specific imaging follow-up. There is a small area of consolidation/volume loss in the apical and posterior right upper lobe which was not present 02/09/24. There are some linear and reticular subsegmental opacities in the mid and lower lung zones which are improved when compared to 02/09/24. MEDIASTINUM: There is some thickening of the esophageal wall but no definite hiatal hernia. In comparison the previous study this represents interval improvement. There are no enlarged mediastinal or hilar lymph nodes. There is an unchanged less than 1 cm nodule in the lower pole of the left lobe thyroid. CARDIAC: The heart is not enlarged. No pericardial fluid or thickening CORONARY CALCIFICATION: No coronary calcifications demonstrated. VASCULAR: There is no thoracic aortic aneurysm. The main pulmonary artery is normal caliber PLEURA: There is no pleural fluid or pneumothorax AXILLA/CHEST WALL: Partially included mass with an associated hypodensity in the left breast appears unchanged. VISUALIZED UPPER ABDOMEN: Please see results of abdomen CT performed same day. MUSCULOSKELETAL: No suspicious focal bony lesion. Procedure Note Brady Bernal MD - 10/03/2024 EXAMINATION: CT CHEST WITH CONTRAST CLINICAL INFORMATION: Esophageal mass. Epigastric pain. Prior hiatal hernia repair COMPARISON: Portions of a CT angiogram 02/09/24 TECHNIQUE: Multidetector CT. Examination of the chest. Examination of the chest following the IV administration of nonioniccontrast. Reformatting in the coronal and sagittal planes. DLP: 871 mGy-cm Dose optimization was performed including the use of low-dose iterativereconstruction technique with automatic exposure control based on patientsize. Type of contrast: ISOVUE 370 Volume of IV contrast: 90 mL Volume of contrast discarded: 0 mL FINDINGS: LUNG: No abnormality of the trachea or mainstem bronchi. There are a few scattered micronodules measuring 0.3 cm or less. In a lowrisk patient these do not require any specific imaging follow-up. There is a small area of consolidation/volume loss in the apical andposterior right upper lobe which was not present 02/09/24. There are some linear and reticular subsegmental opacities in the mid andlower lung zones which are improved when compared to 02/09/24. MEDIASTINUM: There is some thickening of the esophageal wall but nodefinite hiatal hernia. In comparison the previous study this representsinterval improvement. There are no enlarged mediastinal or hilar lymph nodes. There is anunchanged less than 1 cm nodule in the lower pole of the left lobethyroid. CARDIAC: The heart is not enlarged. No pericardial fluid or thickening CORONARY CALCIFICATION: No coronary calcifications demonstrated. VASCULAR: There is no thoracic aortic aneurysm. The main pulmonary arteryis normal caliber PLEURA: There is no pleural fluid or pneumothorax AXILLA/CHEST WALL: Partially included mass with an associated hypodensityin the left breast appears unchanged. VISUALIZED UPPER ABDOMEN: Please see results of abdomen CT performed sameday. MUSCULOSKELETAL: No suspicious focal bony lesion. IMPRESSION: There is a small area of consolidation with volume loss in the right upperlobe which could represent atelectasis or a small area of pneumonia. There is no edema. There are some reticular lower lung zone opacitieswhich are improved when compared to 02/09/24. There is no definite recurrent hiatal hernia. There is some distalesophageal wall thickening -------- FINAL REPORT -------- Dictated By: Brady Bernal Dictated Date: 10/03/2024 09:21 ET Assigned Physician: Brady Bernal Reviewed and Electronically Signed By: Brady Bernal Signed Date: 10/03/2024 09:30 ET Workstation ID: [id number] Transcribed By: Self Edit Transcribed Date: 10/03/2024 09:21 ET us Zain Pagan MD IMG CT PROCEDURES Final Res ult * CT Abdomen Pelvis w Contrast (10/03/2024 8:52 AM EDT) Anatomical Region Laterality Modality Body Computed Tomogra phy 10/03/2024 9:11 AM EDT Impressions 10/03/2024 9:21 AM EDT There is some thickening of the distal esophagus which appears to be improved when compared to previous. There is no significant recurrent hiatal hernia. There is no evidence of an abscess or pneumoperitoneum. Some retained semisolid material in the distal stomach. There is a duodenal diverticulum. No free intraperitoneal fluid. No evidence of high-grade small bowel obstruction. -------- FINAL REPORT -------- Dictated By: Brady Bernal Dictated Date: 10/03/2024 09:11 ET Assigned Physician: Brady Bernal Reviewed and Electronically Signed By: Brady Bernal Signed Date: 10/03/2024 09:21 ET Workstation ID: [id number] Transcribed By: Self Edit Transcribed Date: 10/03/2024 09:11 ET Narrative 10/03/2024 9:21 AM EDT EXAMINATION: CT ABDOMEN/PELVIS WITH IV CONTRAST CLINICAL INFORMATION: Abdomen pain. Hernia suspected COMPARISON: Portions of a CT angiogram 02/09/24 TECHNIQUE: Multidetector CT. Helical examination of the abdomen and pelvis. Imaging performed after the IV administration of contrast. Reformatting in the coronal and sagittal planes. DLP: 1040 mGy-cm Dose optimization was performed including the use of low-dose iterative reconstruction technique with automatic exposure control based on patient size. Type of contrast: ISOVUE 370 Volume of IV contrast: 90 mL Volume of contrast discarded: 0 mL FINDINGS: LIVER: There is a sharply circumscribed 0.9 cm low attenuating abnormality in the left lobe of the liver which is unchanged and likely represents a cyst. The liver contour is smooth. There are subtle areas of low attenuation adjacent to the falciform ligament and in the left lobe liver. These could represent perfusion abnormalities but are not entirely specific. The central intrahepatic bile ducts are dilated but unchanged. BILIARY TRACT: There are surgical clips in the expected region of the gallbladder. There is some dilation of the extrahepatic biliary tree without an opaque calculus. This appears unchanged SPLEEN: Normal size. No focal lesion. PANCREAS: No suspicious abnormality. ADRENAL GLANDS: No suspicious abnormality. KIDNEYS: No dilation of the intrarenal collecting system. The nephrograms are symmetric. No suspicious renal mass. No opaque renal calculus. URINARY BLADDER: The bladder is not fully distended. No focal abnormality. PELVIC VISCERA: The uterus is not demonstrated and is likely surgically absent. There is no suspicious adnexal mass or collection. GASTROINTESTINAL TRACT: There is some wall thickening in the sigmoid colon without surrounding stranding. There are some distal colonic diverticula. No CT evidence of acute appendicitis. There is no significant small bowel dilation. Mild thickening of the distal esophagus appears less prominent than on previous study. The stomach is not well distended. Large amount of semisolid material in the distal stomach. There is a diverticulum involving the descending portion of the duodenum which encroaches upon the expected region of the ampulla. ABDOMINAL WALL: No significant hernia is appreciated. LYMPHOVASCULAR STRUCTURES AND FLUID: There is no abdominal aortic aneurysm. The portal vein enhances. There are no measurably enlarged lymph nodes. There is no free intraperitoneal fluid. VISUALIZED LOWER CHEST: There is an unchanged left breast mass with a high density perhaps a biopsy site marker. There are a few minor nonspecific reticular lung base opacities. MUSCULOSKELETAL: No acute or suspicious osseous abnormality. Procedure Note Brady Bernal MD - 10/03/2024 EXAMINATION: CT ABDOMEN/PELVIS WITH IV CONTRAST CLINICAL INFORMATION: Abdomen pain. Hernia suspected COMPARISON: Portions of a CT angiogram 02/09/24 TECHNIQUE: Multidetector CT. Helical examination of the abdomen and pelvis. Imaging performed after the IV administration of contrast. Reformatting in the coronal and sagittal planes. DLP: 1040 mGy-cm Dose optimization was performed including the use of low-dose iterativereconstruction technique with automatic exposure control based on patientsize. Type of contrast: ISOVUE 370 Volume of IV contrast: 90 mL Volume of contrast discarded: 0 mL FINDINGS: LIVER: There is a sharply circumscribed 0.9 cm low attenuating abnormalityin the left lobe of the liver which is unchanged and likely represents acyst. The liver contour is smooth. There are subtle areas of lowattenuation adjacent to the falciform ligament and in the left lobe liver.These could represent perfusion abnormalities but are not entirelyspecific. The central intrahepatic bile ducts are dilated but unchanged. BILIARY TRACT: There are surgical clips in the expected region of thegallbladder. There is some dilation of the extrahepatic biliary treewithout an opaque calculus. This appears unchanged SPLEEN: Normal size. No focal lesion. PANCREAS: No suspicious abnormality. ADRENAL GLANDS: No suspicious abnormality. KIDNEYS: No dilation of the intrarenal collecting system. The nephrogramsare symmetric. No suspicious renal mass. No opaque renal calculus. URINARY BLADDER: The bladder is not fully distended. No focalabnormality. PELVIC VISCERA: The uterus is not demonstrated and is likely surgicallyabsent. There is no suspicious adnexal mass or collection. GASTROINTESTINAL TRACT: There is some wall thickening in the sigmoidcolon without surrounding stranding. There are some distal colonicdiverticula. No CT evidence of acute appendicitis. There is no significant small bowel dilation. Mild thickening of the distal esophagus appears less prominent than onprevious study. The stomach is not well distended. Large amount ofsemisolid material in the distal stomach. There is a diverticuluminvolving the descending portion of the duodenum which encroaches upon theexpected region of the ampulla. ABDOMINAL WALL: No significant hernia is appreciated. LYMPHOVASCULAR STRUCTURES AND FLUID: There is no abdominal aorticaneurysm. The portal vein enhances. There are no measurably enlarged lymphnodes. There is no free intraperitoneal fluid. VISUALIZED LOWER CHEST: There is an unchanged left breast mass with a highdensity perhaps a biopsy site marker. There are a few minor nonspecificreticular lung base opacities. MUSCULOSKELETAL: No acute or suspicious osseous abnormality. IMPRESSION: There is some thickening of the distal esophagus which appears to beimproved when compared to previous. There is no significant recurrent hiatal hernia. There is no evidence ofan abscess or pneumoperitoneum. Some retained semisolid material in the distal stomach. There is aduodenal diverticulum. No free intraperitoneal fluid. No evidence of high-grade small bowelobstruction. -------- FINAL REPORT -------- Dictated By: Brady Bernal Dictated Date: 10/03/2024 09:11 ET Assigned Physician: Brady Bernal Reviewed and Electronically Signed By: Brady Bernal Signed Date: 10/03/2024 09:21 ET Workstation ID: [id number] Transcribed By: Self Edit Transcribed Date: 10/03/2024 09:11 ET us Zain Pagan MD [facility] PROCEDURES Final Res ult * Troponin I high sensitivity (10/03/2024 8:24 AM EDT) Only the most recent of2 resultswithin the time period is included. High Sensitivity Troponin I 4 <=54 ng/L LAB CHEMISTRY METHOD 10/03/2024 9:[address] [facility] Blood Venous blood specimen / Unknown Venipuncture / Unknown 10/03/2024 8:24 AM EDT 10/03/2024 8:[address] [facility] - 10/03/2024 9:29 AM EDT High levels of biotin in samples may falsely decrease hsTroponin values. Use caution when interpreting hsTroponin results in patients taking biotin who exhibit renal impairment (eGFR <60) or in patients taking more than 20 mg/day of biotin. us Zain Pagan MD LAB BLOOD ORDERABLES Final Result [facility] [address] [place] [address], [place] [phone] * XR Chest 2 Views (10/03/2024 6:33 AM EDT) Anatomical Region Laterality Modality Body Radiographic Natasha ging 10/03/2024 6:41 AM EDT Impressions 10/03/2024 6:44 AM EDT No pneumonia or edema. Subsegmental linear opacities may be atelectasis. -------- FINAL REPORT -------- Dictated By: Brady Bernal Dictated Date: 10/03/2024 06:41 ET Assigned Physician: Brady Bernal Reviewed and Electronically Signed By: Brady Bernal Signed Date: 10/03/2024 06:44 ET Workstation ID: [id number] Transcribed By: Self Edit Transcribed Date: 10/03/2024 06:41 ET Narrative 10/03/2024 6:44 AM EDT EXAMINATION: CHEST CLINICAL INFORMATION: Chest pain COMPARISON: Frontal view of the chest 02/16/24 TECHNIQUE: 2 views of the chest FINDINGS: There is mild rotation to the right. The cardiac size is within normal limits. There is unchanged prominence of the right upper mediastinum likely related to tortuous great vessels. There is no hilar mass. The central vessels taper promptly. The lungs are hyperlucent. There are subsegmental linear opacities at the bases. There is no pneumothorax or significant pleural fluid. There are surgical clips in the right upper quadrant. There is no suspicious focal bony lesion. Procedure Note Brady Bernal MD - 10/03/2024 EXAMINATION: CHEST CLINICAL INFORMATION: Chest pain COMPARISON: Frontal view of the chest 02/16/24 TECHNIQUE: 2 views of the chest FINDINGS: There is mild rotation to the right. The cardiac size is within normal limits. There is unchanged prominence ofthe right upper mediastinum likely related to tortuous great vessels. There is no hilar mass. The central vessels taper promptly. The lungs arehyperlucent. There are subsegmental linear opacities at the bases. There is nopneumothorax or significant pleural fluid. There are surgical clips in the right upper quadrant. There is nosuspicious focal bony lesion. IMPRESSION: No pneumonia or edema. Subsegmental linear opacities may be atelectasis. -------- FINAL REPORT -------- Dictated By: Brady Bernal Dictated Date: 10/03/2024 06:41 ET Assigned Physician: Brady Bernal Reviewed and Electronically Signed By: Brady Bernal Signed Date: 10/03/2024 06:44 ET Workstation ID: [id number] Transcribed By: Self Edit Transcribed Date: 10/03/2024 06:41 ET us Zain Pagan MD IMG XR PROCEDURES Final Res ult * (ABNORMAL) CBC auto differential (10/03/2024 5:51 AM EDT) WBC 15.5(H) 4.8 - 10.8 K/mcL LAB HEMETOLOGY METHOD 10/03/2024 6:[address] [facility] RBC 4.60 3.80 - 4.80 M/mcL LAB HEMETOLOGY METHOD 10/03/2024 6:[address] [facility] Hemoglobin 12.5 11.5 - 16.0 g/dL LAB HEMETOLOGY METHOD 10/03/2024 6:[address] [facility] Hematocrit 38.3 35.0 - 47.0 % LAB HEMETOLOGY METHOD 10/03/2024 6:29 AM [facility] MCV 82.9 79.0 - 98.0 FL LAB HEMETOLOGY METHOD 10/03/2024 6:29 AM [facility] MCH 27.1 27.0 - 32.0 pcg LAB HEMETOLOGY METHOD 10/03/2024 6:29 AM [facility] MCHC 32.6 32.0 - 37.0 g/dL LAB HEMETOLOGY METHOD 10/03/2024 6:29 AM [facility] RDW 12.8 11.0 - 15.0 % LAB HEMETOLOGY METHOD 10/03/2024 6:29 AM [facility] Platelets 400 130 - 400 K/mcL LAB HEMETOLOGY METHOD 10/03/2024 6:29 AM [facility] MPV 9.0 7.0 - 11.0 FL LAB HEMETOLOGY METHOD 10/03/2024 6:29 AM [facility] NRBC 0.0 <1.0 % LAB HEMETOLOGY METHOD 10/03/2024 6:29 AM [facility] NRBC Absolute 0.00 <0.10 K/mcL LAB HEMETOLOGY METHOD 10/03/2024 6:29 AM [facility] Neutrophils Relative 71.1 % LAB HEMETOLOGY METHOD 10/03/2024 6:29 AM [facility] Lymphocytes Relative 20.3 % LAB HEMETOLOGY METHOD 10/03/2024 6:29 AM [facility] Monocytes Relative 6.1 % LAB HEMETOLOGY METHOD 10/03/2024 6:29 AM [facility] Eosinophils Relative 1.6 % LAB HEMETOLOGY METHOD 10/03/2024 6:[address] [facility] Basophils Relative 0.4 % LAB HEMETOLOGY METHOD 10/03/2024 6:[address] [facility] Immature Granulocytes Relative 0.5 % LAB HEMETOLOGY METHOD 10/03/2024 6:[address] [facility] Neutrophils Absolute 11.01(H) 1.50 - 7.00 K/mcL LAB HEMETOLOGY METHOD 10/03/2024 6:[address] [facility] Lymphocytes Absolute 3.15 1.00 - 5.00 K/mcL LAB HEMETOLOGY METHOD 10/03/2024 6:[address] [facility] Monocytes Absolute 0.95 0.20 - 1.00 K/mcL LAB HEMETOLOGY METHOD 10/03/2024 6:[address] [facility] Eosinophils Absolute 0.24 0.00 - 0.50 K/mcL LAB HEMETOLOGY METHOD 10/03/2024 6:[address] [facility] Basophils Absolute 0.06 0.00 - 0.20 K/mcL LAB HEMETOLOGY METHOD 10/03/2024 6:[address] [facility] Immature Granulocytes Absolute 0.07(H) 0.00 - 0.03 K/mcL LAB HEMETOLOGY METHOD 10/03/2024 6:[address] [facility] Blood Venous blood specimen / Unknown Venipuncture / Unknown 10/03/2024 5:51 AM EDT 10/03/2024 6:22 AM EDT us Zain Pagan MD LAB BLOOD ORDERABLES Final Result [facility] [address] [place] [address], * (ABNORMAL) C-reactive protein (10/03/2024 5:51 AM EDT) [facility] C-Reactive Protein 1.58(H) <=0.50 mg/dL LAB CHEMISTRY METHOD 10/03/2024 10:[address] [facility] Blood Venous blood specimen / Unknown Venipuncture / Unknown 10/03/2024 5:51 AM EDT 10/03/2024 6:22 AM EDT Zain Pagan MD LAB BLOOD ORDERABLES Final Result Performing Organization Address [facility]/ZIP Co de Phone Number [facility] [address] [place] [address], [place] [phone] * B-type natriuretic peptide (10/03/2024 5:51 AM EDT) [facility] BNP 31 <=100 pcg/mL LAB CHEMISTRY METHOD 10/03/2024 6:[address] [facility] Blood Venous blood specimen / Unknown Venipuncture / Unknown 10/03/2024 5:51 AM EDT 10/03/2024 6:22 AM EDT Zain Pagan MD LAB BLOOD ORDERABLES Final Result Performing Organization Address [facility] Co de Phone Number [facility] [address] [place] [address], [place] [phone] * (ABNORMAL) Magnesium (10/03/2024 5:51 AM EDT) [facility] Magnesium 1.8(L) 1.9 - 2.6 mg/dL LAB CHEMISTRY METHOD 10/03/2024 6:[address] [facility] Blood Venous blood specimen / Unknown Venipuncture / Unknown 10/03/2024 5:51 AM EDT 10/03/2024 6:22 AM EDT us Zain Pagan MD LAB BLOOD ORDERABLES Final Result [facility] [address] [place] [address], [place] [phone] * Lipase (10/03/2024 5:51 AM EDT) [facility] Lipase 26 13 - 75 unit/L LAB CHEMISTRY METHOD 10/03/2024 6:[address] [facility] Blood Venous blood specimen / Unknown Venipuncture / Unknown 10/03/2024 5:51 AM EDT 10/03/2024 6:22 AM EDT Zain Pagan MD LAB BLOOD ORDERABLES Final Result Performing Organization Address [facility] Co de Phone Number [facility] [address] [place] [address], [place] [phone] * (ABNORMAL) Comprehensive metabolic panel (10/03/2024 5:51 AM EDT) [facility] Sodium 128(L) 133 - 145 mmol/L LAB CHEMISTRY METHOD 10/03/2024 6:49 AM [facility] Potassium 4.3 3.5 - 5.5 mmol/L LAB CHEMISTRY METHOD 10/03/2024 6:49 AM [facility] Chloride 93(L) 96 - 110 mmol/L LAB CHEMISTRY METHOD 10/03/2024 6:49 AM [facility] CO2 28 21 - 32 mmol/L LAB CHEMISTRY METHOD 10/03/2024 6:49 AM [facility] Anion Gap 7 3 - 11 LAB CHEMISTRY METHOD 10/03/2024 6:49 AM [facility] Glucose 89 70 - 100 mg/dL LAB CHEMISTRY METHOD 10/03/2024 6:49 AM [facility] BUN 12 5 - 25 mg/dL LAB CHEMISTRY METHOD 10/03/2024 6:49 AM [facility] Creatinine 0.74 0.50 - 1.10 mg/dL LAB CHEMISTRY METHOD 10/03/2024 6:49 AM [facility] eGFR 88 >=60 mL/min/1. 73m2 LAB CHEMISTRY METHOD 10/03/2024 6:49 AM [facility] Comment:Calculation based on the Chronic Kidney Disease Epidemiology Collaboration (CKD-EPI) equation refit without adjustment for race. BUN/Creatinine Ratio 16.2 LAB CHEMISTRY METHOD 10/03/2024 6:49 AM [facility] Calcium 10.1 8.5 - 10.5 mg/dL LAB CHEMISTRY METHOD 10/03/2024 6:49 AM [facility] AST (SGOT) 10 10 - 42 unit/L LAB CHEMISTRY METHOD 10/03/2024 6:49 AM [facility] ALT (SGPT) 22 10 - 60 unit/L LAB CHEMISTRY METHOD 10/03/2024 6:49 AM [facility] Alkaline Phosphatase 71 42 - 121 unit/L LAB CHEMISTRY METHOD 10/03/2024 6:49 AM [facility] Total Protein 6.9 6.0 - 8.0 g/dL LAB CHEMISTRY METHOD 10/03/2024 6:49 AM [facility] Albumin 3.8 3.2 - 5.0 g/dL LAB CHEMISTRY METHOD 10/03/2024 6:49 AM [facility] Total Bilirubin 0.4 0.0 - 1.4 mg/dL LAB CHEMISTRY METHOD 10/03/2024 6:49 AM [facility] Blood Venous blood specimen / Unknown Venipuncture / Unknown 10/03/2024 5:51 AM EDT 10/03/2024 6:22 AM EDT us Zain Pagan MD LAB BLOOD ORDERABLES Final Result [facility] [address] [place] [address], [place] [phone] * [place] Abdomen Limited (07/25/2024 7:01 AM EDT) Anatomical Region Laterality Modality Body Ultrasound 07/25/2024 3:36 PM EDT Impressions 07/25/2024 3:40 PM EDT Normal study. -------- FINAL REPORT -------- Dictated By: Laith Middleton Dictated Date: 07/25/2024 15:36 ET Assigned Physician: Laith Middleton Reviewed and Electronically Signed By: Laith Middleton Signed Date: 07/25/2024 15:40 ET Workstation ID: [id number] Transcribed By: Self Edit Transcribed Date: 07/25/2024 15:36 ET Narrative 07/25/2024 3:40 PM EDT INDICATION: MUÑOZ FINDINGS: Ultrasound of the right upper quadrant performed. Prior relevant studies: CTA of the abdomen from February 09, 2024 reviewed. Pancreas: Almost completely obscured by bowel gas. Liver: Normal in size, shape and echogenicity. No solid mass or intrahepatic ductal dilatation. Portal vein patent with hepatopedal flow. 1 cm left lobe simple cyst. Gallbladder: Surgically absent. Common bile duct: 6 mm Right kidney: Survey images are within normal limits. Ascites: None Procedure Note Laith Middleton MD - 07/25/2024 INDICATION: MUÑOZ FINDINGS: Ultrasound of the right upper quadrant performed. Prior relevant studies: CTA of the abdomen from February 09, 2024 reviewed. Pancreas: Almost completely obscured by bowel gas. Liver: Normal in size, shape and echogenicity. No solid mass orintrahepatic ductal dilatation. Portal vein patent with hepatopedal flow.1 cm left lobe simple cyst. Gallbladder: Surgically absent. Common bile duct: 6 mm Right kidney: Survey images are within normal limits. Ascites: None IMPRESSION: Normal study. -------- FINAL REPORT -------- Dictated By: Laith Middleton Dictated Date: 07/25/2024 15:36 ET Assigned Physician: Laith Middleton Reviewed and Electronically Signed By: Laith Middleton Signed Date: 07/25/2024 15:40 ET Workstation ID: [id number] Transcribed By: Self Edit Transcribed Date: 07/25/2024 15:36 ET us Silvia DAILY IMG US PROCEDURES Final Resul t * Hepatic function panel (07/14/2024 10:51 AM EDT) Total Protein 7.3 6.0 - 8.0 g/dL LAB CHEMISTRY METHOD 07/14/2024 3:[address] [facility] Albumin 4.0 3.2 - 5.0 g/dL LAB CHEMISTRY METHOD 07/14/2024 3:[address] [facility] Total Bilirubin 0.4 0.0 - 1.4 mg/dL LAB CHEMISTRY METHOD 07/14/2024 3:[address] [facility] Bilirubin, Direct 0.1 0.0 - 0.3 mg/dL LAB CHEMISTRY METHOD 07/14/2024 3:[address] [facility] Bilirubin, Indirect 0.3 0.0 - 1.1 mg/dL LAB CHEMISTRY METHOD 07/14/2024 3:[address] [facility] ALT (SGPT) 25 10 - 60 unit/L LAB CHEMISTRY METHOD 07/14/2024 3:[address] [facility] AST (SGOT) 17 10 - 42 unit/L LAB CHEMISTRY METHOD 07/14/2024 3:[address] [facility] Alkaline Phosphatase 58 42 - 121 unit/L LAB CHEMISTRY METHOD 07/14/2024 3:[address] [facility] Blood Venous blood specimen / Unknown Venipuncture / Unknown 07/14/2024 10:51 AM EDT 07/14/2024 10:51 AM EDT us Silvia DAILY LAB BLOOD ORDERABLES Final Re sult [facility] ([facility] [address] [place] [address], * (ABNORMAL) Lipid panel (09/20/2023) LDL/HDL Ratio 5(A) 0 - 4 Triglycerides 245(A) 0 - 150 mg/dL Cholesterol 275(A) 0 - 200 mg/dL HDL 60 >=40 mg/dL LDL Cholesterol 166(A) 0 - 100 mg/dL Blood Venous blood specimen / Unknown us Historical Provider MD LAB BLOOD ORDERABLES Molly l Result * Colonoscopy (10/07/2022) Pathologist [facility] Colonoscopy no interpretation , abstracted Anatomical Region Laterality Modality Other Historical Provider MD HEALTH MAINTENANCE Final Result * DXA BONE DENSITY STUDY 1+ SITS AXIAL SKEL (03/05/2022 1:21 PM EST) Anatomical Region Laterality Modality Bone Densitometr y 02/05/2022 9:18 AM EST Narrative 03/05/2022 7:13 PM EST BONE DENSITY Lumbar Spine T-score is +0.7 [...] classified as having normal bone density. [facility] Department of Internal Medicine recommends using National [...] classified as having normal bone density. 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
[2024-10-09 13:34] LABS: MANUAL DIFF FLAG NO
[2024-10-09 13:46] LABS: Hematocrit 38.8 % (37.0-47.0); Hemoglobin 12.6 g/dl (12.0-16.0); Imm Gran Abs Auto 0.07 X10*3/uL (0.00-0.03); Imm Gran Pct Auto 0.6 % (0.0-0.4); Lymphocytes Absolute Auto 3.9 X10*3/uL (1.2-4.9); Mean Corpuscular HGB Conc 32.5 g/dl (31.0-35.0); Mean Corpuscular Hemoglobin 27.1 pg (27.0-33.0); Mean Corpuscular Volume 83.4 fL (80.0-98.0); NRBC Abs Auto 0.000 X10*3/uL (0.0-0.012); NRBC Pct Auto 0.0 /100WBC (0.0-0.2); Platelet Count 453 X10*3/uL (160-400); Red Blood Count 4.65 X10*6/uL (4.20-5.50); White Blood Count 11.3 X10*3/uL (4.8-10.8)
[2024-10-09 13:51] LABS: Alanine Aminotransferase 16 U/L (0-31); Albumin Level 4.6 g/dL (3.5-5.0); Alkaline Phosphatase 62 U/L (39-117); Anion Gap 15 (12-20); Aspartate Amino Transferase 23 U/L (5-31); Blood Urea Nitrogen 8 mg/dL (9-16); Calcium 9.5 mg/dL (8.4-10.2); Carbon Dioxide 25 mmol/L (22-29); Chloride 101 mmol/L (96-108); Estimated Glomerular Filt Rate > 60; Potassium 4.8 mmol/L (3.3-5.1); Sodium 136 mmol/L (135-145); Total Protein 7.3 g/dL (6.5-8.0)
== END 2024-10-09 09:46 | disposition home or self-care (01) ==
LOC: HO.HKASLDS 09:45
PROVIDERS: Visit Provider Student in an Organized Health Care Education/Training Program
DX: Z51.81 Encounter for therapeutic drug level monitoring (principal); M31.6 Other giant cell arteritis; Z79.631 Long term (current) use of antimetabolite agent
CPT/HCPCS: 36415; 80053; 85025; 85652; 86140

== ENCOUNTER 2024-10-11 13:28 | Outpatient (AMB) | payer OTHER, SELFPAY ==
--- NOTE | 2024-10-11 13:41 | MHC.OFFVIS ---
Vital Signs 10/11/24 13:51 Height 5 ft 2.5 in Weight 177 lb BMI 31.9 BP 132/82 Blood Pressure Location Lt radial Position Sitting Pulse 76 Pulse Source Pulse Oximeter Pulse Oximetry (%) 98 Oxygen Delivery Method Room Air Intake Visit Reasons: RA Intake Note: Patient last seen by doctor Jina Braden on 06/22/24. Presents today for RA follow up and test results. Allergies hydralazine Allergy (Severe, Verified 10/11/24 13:50) Shortness of Breath Sulfa (Sulfonamide Antibiotics) Allergy (Intermediate, Verified 10/11/24 13:50) Rash sulfamethoxazole (From Bactrim) Allergy (Intermediate, Verified 10/11/24 13:50) Rash trimethoprim (From Bactrim) Allergy (Intermediate, Verified 10/11/24 13:50) Rash rosuvastatin Adverse Reaction (Severe, Verified 10/11/24 13:50) Joint Pain Medication List - Last Reconciled 10/11/24 by Jina Braden MD atenolol 25 mg PO DAILY cetirizine 10 mg PO BEDTIME clonazepam 0.5 mg PO TID PRN CPAP As directed dicyclomine 10 mg PO QID PRN folic acid 1 mg PO DAILY levothyroxine 100 mcg PO DAILY lisinopril 5 mg PO DAILY methotrexate sodium 15 mg (6 x 2.5 mg) PO QWEEK 90 days prednisone 1 mg orally; Take 4 tablets daily with the 5 mg tablets when you reach the 9 mg prednisone taper spironolactone 50 mg PO DAILY HPI Comments Details: Patient is a 69 y.o. female with celiac disease, Crohn's disease, hypertension, hypothyroidism, history of PMR and non biopsy-proven GCA here today for follow up Interval History: Patient last seen 06/22/24 with me - On Prednisone 12.5mg for non biopsy proven GCA - Doing well - Unable to start IL 6 due to history of diverticulitis and so she was started on methotrexate Today - On methotrexate 15mg weekly and prednisone 7mg - doing well - No headaches - No visual changes - currently being evaluated for GI upset. On dicyclomine with improvement Rheumatologic History: PMR onset around 10/2022 elevated ESR and CRP. ++DAREN Tapered off prednisone 12/2023 GCA Contacted the office 04/2024 with intractable occipital headache and inflammatory markers elevated Started on prednisone TA biopsy negative 04/2024 PET scan negative 06/2024 Current Rheumatology Medication(s): Prednisone 9mg PO daily Methotrexate 15mg weekly Folic acid 1mg PFSH Medical History (Updated 05/11/24 @ 11:06 by Jina Braden MD) Celiac disease Arrhythmia TIA (transient ischemic attack) Palpitations halfway (current) use of systemic steroids Paresthesias Vertigo HTN (hypertension) Arthritis Anemia Hypothyroidism Vertigo Anxiety Back pain Surgical History Hx of cholecystectomy H/O: hysterectomy Giant cell arteritis H/O esophageal hernia repair Family History Brother Liver disease Cancer Sister Stroke Diabetes Sister Cancer Rheumatoid arthritis Sister Vitiligo Rheumatoid arthritis Daughter Vitiligo Social History Household Members: Spouse Housing: House Are you a primary long term care administrator to a significant other at home: No Do you presently have visiting nurse or other home services: No 75 years or older and lives alone: No Alcohol intake: former Patient Tobacco Use Status: Former Tobacco user Years Smoked: Quit 25 years ago e-Cigarette/Vaping Use: Never Used service: No Current occupational status: retired Review of Systems Const Details: Review of Systems Constitutional: Denies fever, chills, weight loss ENT: Denies vision changes, eye pain or eye redness, dental caries, dry mouth GI: Denies nausea, vomiting, diarrhea, abdominal pain, change in BM Pulm: Denies SOB, , hemoptysis, wheezing Cards: Denies chest pain, palpitations Skin: Denies Raynaud's, rash, nail changes, photosensitivity, SENIOR WEALTH ADVISOR: Denies headaches, weakness, paresthesias, recurrent falls MSK: as per HPI All other systems reviewed and are unremarkable except noted above Physical Exam Exam Exam: Vital signs reviewed Physical Examination CONSTITUITIONAL Patient alert and cooperative. Well appearing and in no apparent painful distress MSK Hands Right Hand: Able to make a fist. No swelling or tenderness to palpation of these joints. Left Hand: Able to make a fist. No swelling or tenderness to palpation of these joints. Wrists Right Wrist: Full ROM. 70 degrees of wrist flexion, 80 degrees of wrist extension. No swelling or TTP Left Wrist: Full ROM. 70 degrees of wrist flexion, 80 degrees of wrist extension. No swelling or TTP Elbows Right Elbow: Full ROM. No swelling or TTP. No TTP of the medial and lateral epicondyles Left Elbow: Full ROM. No swelling or TTP. No TTP of the medial and lateral epicondyles Shoulders Right shoulder: Full ROM. No swelling noted. No TTP of the AC joint, subacromial bursa or posterior shoulder Left shoulder: Full ROM. No swelling noted. No TTP of the AC joint, subacromial bursa or posterior shoulder Knees Right knee: Full ROM. No swelling noted. No TTP of the knee joint lie or pes anserine bursa Left knee: Full ROM. No swelling noted. No TTP of the knee joint lie or pes anserine bursa. Crepitations felt bilaterally Ankles Right ankle: Good ankle dorsiflexion and plantar flexion. No swelling. No TTP of the ankle joint Left ankle: Good ankle dorsiflexion and plantar flexion. No swelling. No TTP of the ankle joint Feet Right foot: Negative squeeze test Left foot: Negative squeeze test Tender points? No tenderness to palpation of the bilateral trapezius, supraspinatus, anterior costochondral junctions, bilateral suboccipital muscle insertions SKIN No rashes Vital Signs: Last Vital Signs Pulse 76 10/11/24 13:51 BP 132/82 10/11/24 13:51 Pulse Ox 98 10/11/24 13:51 Oxygen Delivery Method Room Air 10/11/24 13:51 BMI result Body Mass Index 31.9 Results Reviewed Results Reviewed: Laboratory Tests 06/20/24 10/09/24 12:32 09:47 WBC 11.3 H RBC 4.65 Hgb 12.6 Hct 38.8 Plt Count 453 H ESR 25 H 18 Sodium 136 Potassium 4.8 Chloride 101 Carbon Dioxide 25 BUN 8 L Creatinine 0.67 AST 23 ALT 16 Alkaline Phosphatase 62 C-Reactive Protein 0.90 H 0.70 H PET/CT 06/2024 FINDINGS: HEAD AND NECK: No abnormal radiotracer uptake activity seen in the carotid arteries. Nonspecific activity seen in the hypopharynx and oral cavity likely excreted isotope activity. No large intracranial hemorrhage, acute territorial infarct or significant shift of midline structures. CHEST: Ports and Devices: None Lungs: No abnormal radiotracer uptake. Pleura: No significant pleural effusion. Lymph Nodes: No tracer-avid mediastinal, hilar or internal mammary or axillary lymphadenopathy. Mediastinum: Abnormal activity seen in the thoracic aorta or subclavian arteries. A three-vessel branching of the aortic arch is noted. Breasts/Chest Wall: No abnormal radiotracer uptake. ABDOMEN/PELVIS: Liver/Biliary System: No focal tracer-avid liver lesion. The gallbladder appears unremarkable. Pancreas: Unremarkable. Spleen: No abnormal radiotracer uptake. No evidence of splenomegaly. Adrenal Glands: No abnormal radiotracer uptake. Kidneys: No hydronephrosis, hydroureter or renal calculi bilaterally. Bowel: There is no significant bowel dilatation to suggest obstruction. Lymph Nodes: No tracer avid retroperitoneal, mesenteric or pelvic and/or groin lymphadenopathy. Pelvic Organs: The urinary bladder is underdistended. MUSCULOSKELETAL: No abnormal metabolic activity seen VASCULAR: No abnormal metabolic seen in the abdominal aorta, iliac vessels are the branches. Bilateral lower extremity. There is mild activity seen in bilateral superficial femoral, popliteal and tibial veins. Not typical of giant cell arteritis. IMPRESSION: No abnormal vascular FDG activity seen in the neck, chest, abdomen and pelvis suspicious of giant cell arteritis. Mild activity seen in the superficial femoral, popliteal and tibial veins is nonspecific and can be seen in a normal PET study. Assessment & Plan Assessment & Plan (1) Giant cell arteritis: Comment: 04/2024. Occipital headache associated with elevated inflammatory markers TA biopsy negative Code(s): M31.6 - Other giant cell arteritis Category: Surgical Plan: #GCA Patient is a 69-year-old female with non biopsy-proven GCA here today for follow up. Currently in remission with no signs or symptoms of active GCA. No signs or symptoms of active PMR. She had a negative PET scan and a negative biopsy. Unable to do Actemra due to history of diverticulitis. Currently on methotrexate and tolerating well. Plan - continue to decrease prednisone by 1 mg every month - Methotrexate 15mg weekly - Folic acid 1 mg daily - RTC 4 months - labs before visit: CBC, CMP, ESR, CRP (2) Polymyalgia rheumatica: Comment: onset around 10/2022 elevated ESR and CRP. ++DAREN Prednisone tapered off 12/2023 Code(s): M35.3 - Polymyalgia rheumatica Category: Surgical Plan: #PMR Patient with history of PMR currently in remission. 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 Limit alcohol and avoid Bactrim ? 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 Category: Medical Plan: #Long-term Use of Steroids Discussed with patient the risks and benefits of steroid for managing the rheumatic condition Benefits include: - Reduced pain, improved mobility, increased participation in activities, and decreased progression of disease Risks include: - GI upset, potential ultrasound worsening or formation (especially in patients > 65 years old), elevated blood pressure/worsening hypertension, elevated blood sugar/worsening diabetes control, worsening of bone density, elevated lipids/worsening triglycerides, cataract formation, weight gain Recommended using proton pump inhibitors (PPIs) for the duration of steroid use to reduce the risk of gastric ulcers and vitamin-D daily to reduce the risk of osteoporosis Labs checked: ?A1c, T spot, hepatitis-B and C serologies Pneumocystis jiroveci prophylaxis: ?Patient with risk factors including steroids greater than 50 mg for more than 30 days, age greater than 60 years, and lung involvement from underlying rheumatic disease requires prophylaxis and will be given so Plan I spent 25 minutes reviewing the record and labs, taking a history, examining the patient, discussing the treatment plan, answering questions and documenting in the medical record Orders: Orders Complete Blood Count Auto Diff 4 Months Z79.899 - Other senior living (current) drug therapy C Reactive Protein 4 Months Z79.899 - Other terminal press operator (current) drug therapy Erythrocyte Sedimentation Rate 4 Months Z79.899 - Other terminal press operator (current) drug therapy Comprehensive Met. 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
[2024-10-11 13:51] VITALS: BP 132/82; PULSE 76; O2SAT 98; BMI 31.9
--- OUTSIDE RECORDS SUMMARY | 2024-10-11 13:59 | XMS_ITS | Clinical Summary ---
Author Organization [facility] Address [address] [place] [address] Phone Care Team Providers Care Collision Estimator Name Role Phone Belia Villavicencio MD Primary Care Prov ider Allergies Active Allergy Reactions Criticality Noted Date Comments Gluten Itching,GI intolerance 01/03/2024 Hydralazine Cardiac Issue High 02/16/2024 Severe chest pain Cynzjax-Ygh-Bqr Reductase Inhibitors Muscular Issues High 01/08/2023 Sulfa [...] Giant cell arteritis with po lymyalgia rheumatica ([facility] V24, [facility] V28) 12/29/2022 Overview (01/11/2024): 12/28 - engaged with Dr. Reeves of rheumatology at [place] Palpitations 03/30/2022 Positive DAREN (antinuclear antibody) 06/18/2021 Obesity (BMI 30.0-34.9) 06/17/2021 Obstructive sleep apnea 06/17/2021 Overview (01/11/2024): Using CPAP (June 2021) Lumbago 10/29/2009 Radiculitis, lumbosacral 10/29/2009 Anemia 10/04/2009 Rheumatoid arthritis ([facility] V24, [facility] V28) 10/04/2009 Hypercholesteremia 10/04/2009 Assessment & [...] Care Team Description 10/09/2024 7:57 AM EDT - 10/09/2024 11:59 PM EDT Hospital Encounter [facility] Xray [address] [place] [address] Dysphagia, unspecified type Discharge Disposition: Home or Self Care 10/03/2024 8:12 AM EDT - 10/03/2024 12:42 PM EDT Emergency [facility] Emergency [address] [place] [address] Zain Pagan MD Esophageal pain (Primary Dx); Pneumonia due to infectious organism, unspecified laterality, unspecified part of lung Discharge Disposition: Home or Self Care 10/03/2024 Telephone Gastroenterology - 299 [facility] 299 [facility] [address] [place] [phone] Loretta Duron MD 10/02/2024 Telephone Gastroenterology - [place] 175 [facility] 175 [facility] [address] [place] [phone] Silvia Mcfarlane PA provider call back 09/29/2024 1:15 PM EDT Office Visit Adult [facility] [address] [place] [phone] Belia Villavicencio MD Rheumatoid arthritis, involving unspecified site, unspecified whether rheumatoid factor present (CMS/HCC V24, CMS/HCC V28) (Primary Dx); Gastroesophageal reflux disease without esophagitis; Hypothyroidism, unspecified type; Obstructive sleep apnea 07/25/2024 6:35 AM EDT - 07/25/2024 11:59 PM EDT Hospital [facility] Ultrasound [address] [place] [phone] Celiac disease; NAFLD (nonalcoholic fatty liver disease) Discharge Disposition: Home or Self Care 07/24/2024 Telephone Adult [facility] [address] [place] [address] Belia Villavicencio MD Med Question 07/24/2024 Telephone Adult [facility] [address] [place] [address] Belia Villavicencio MD 07/14/2024 10:55 AM EDT Lab Draw Station - 175 [facility] 175 [facility] [address] [place] [phone] Celiac disease; NAFLD (nonalcoholic fatty liver disease) 07/12/2024 2:20 PM EDT Office Visit Gastroenterology - [place] 175 [facility] 175 [facility] [address] [place] [phone] Silvia Mcfarlane PA Celiac disease (Primary Dx); [...] pressure) depen dence Celiac disease Rheumatoid arthritis ([facility] V24, [facility] V28) 01/2024 Family History Medical History Relation [...] your loved ones. For example, child care center assistant director or elderly care for an older [...] Info) Description 10/11/2024 3:30 PM EDT Appointment [facility] Endoscopy [address] [place] [phone] Loretta Duron MD [address] [address] Alanna Davidson CRNA [address] [place], [place] [phone] Isac Zuluaga MD [address] [place], [place] [phone] 01/01/2025 1:15 PM EDT Office Visit Adult Medicine - [place] [address] [place] [phone] Caro Vallecillo PA [address] [place] [address] 01/08/2025 1:40 PM EST Office Visit Gastroenterology - [place] 175 [facility] 175 [facility] [address] [place] [phone] Silvia Mcfarlane PA 175 [facility] [address] [place] [address] Health Maintenance Due Date Last Done Comments [...] this topic Medical Devices Implanted Type Area Calculation Reviewer Device Identifier Shelf Expiration Date Model / Serial / Lot Sealant Fibrin Vistaseal 10ml - [id number] - [id number] Implanted:Qty: 1 on 01/18/2024 by Emily Ho MD at [facility] Hemostasis N/A: Abdomen [employer] [id number] 09/13/2025 [id number] / [id number] / [id number] Tissue Ovitex 1s Perm 6x10cm - Sna - [id number] Implanted:Qty: 1 on 01/18/2024 by Emily Ho MD at [facility] Surgical Mesh Sling Implants N/A: Abdomen [employer] [id number] 07/05/2025 [id number] / NA / [id number] 1 Procedures Procedure Name Priority Date/Time Associated Diagnosis Comments XR ESOPHAGRAM STAT 10/09/2024 8:44 AM EDT Dysphagia, unspecified type ECG ANNOTATED 10/04/2024 ECG 12-LEAD STAT 10/03/2024 9:[address] CHEST W CONTRAST STAT 10/03/2024 9 :[address] ABDOMEN PELVIS W CONTRAST STAT 10/03/2024 8:52 AM EDT TROPONIN I HIGH SENSITIVITY Timed 10/03/2024 8:24 AM EDT XR CHEST 2 VIEWS STAT 10/03/2024 6:33 AM EDT C-REACTIVE PROTEIN STAT Add-on 10/03/2024 5: 51 AM EDT CBC WITH AUTO DIFFERENTIAL STAT [...] AM EDT US ABDOMEN LIMITED Routine 07/25/2024 7: 01 AM EDT Celiac disease NAFLD (nonalcoholic fatty [...] Recently Relevant to Health Maintenance Results * XR Esophagram (10/09/2024 8:44 AM EDT) Anatomical Region Laterality Modality Head and Neck Radiographic Natasha ging 10/09/2024 9:21 AM EDT Impressions 10/09/2024 2:57 PM EDT Mild esophageal dysmotility No evidence of contrast leak, extravasation or residual hernia status post fundoplication with near total resolution of distal esophageal narrowing/postsurgical edema seen on prior imaging from February 2024. -------- FINAL REPORT -------- Dictated By: Nona Kapadia Dictated Date: 10/09/2024 09:21 ET Assigned Physician: Laith Middleton Reviewed and Electronically Signed By: Laith Middleton Signed Date: 10/09/2024 14:57 ET Workstation ID: [id number] Transcribed By: Self Edit Transcribed Date: 10/09/2024 09:31 ET Resident/PA/SUPERVISOR DRYING: Nona Kapadia Narrative 10/09/2024 2:57 PM EDT FINDINGS: Double contrast esophagram performed. COMPARISON: Esophagram February 16, 2024 HISTORY: Patient is a 69-year-old female with history of hiatal hernia repair in January 2024 now with postprandial epigastric pain. Commercial Intern radiographs: 1 view chest radiograph demonstrates cardiac and mediastinal contours within normal limits. Lungs are clear bilaterally. Costophrenic angles are sharp. There is elevation of the right hemidiaphragm, also seen on prior imaging from February 16, 2024. Cholecystectomy clips are present. There are moderate to severe bony degenerative changes of the thoracolumbar spine noted. Aortic knob is calcified. One view lateral soft tissue neck demonstrates no prevertebral soft tissue masses. Airway is widely patent. There are mild bony degenerative changes of the cervical spine noted, including anterior osteophyte formation at the level of C5-6. Effervescent [...] nor in the piriform sinuses. Thoracic esophagus: There is mild esophageal dysmotility. Normal distensibility and mucosal pattern without evidence of ulceration, stricture or mass formation. Distal esophageal narrowing seen on prior imaging from February 2024 has since resolved. Hiatal hernia: None Reflux: Unable to elicit 13mm Barium pill: Swallowed without difficulty. Prompt passage of pill from the esophagus into the stomach. DAP: 313.2 uGym^2 Procedure Note Laith Middleton MD - 10/09/2024 FINDINGS: Double contrast esophagram performed. COMPARISON: Esophagram February 16, 2024 HISTORY: Patient is a 69-year-old female with history of hiatal herniarepair in January 2024 now with postprandial epigastric pain. Commercial Intern radiographs: 1 view chest radiograph demonstrates cardiac [...] on prior imaging from February 2024. -------- FINAL REPORT -------- Dictated By: Nona Kapadia Dictated Date: 10/09/2024 09:21 ET Assigned Physician: Laith Middleton Reviewed and Electronically Signed By: Laith Middleton Signed Date: 10/09/2024 14:57 ET Workstation ID: [id number] Transcribed By: Self Edit Transcribed Date: 10/09/2024 09:31 ET Resident/PA/SUPERVISOR DRYING: Nona Kapadia Silvia DAILY IMG FLUOROSCOPY PROCEDURES Fi nal Result * ECG-Annotated (10/04/2024) us Provider Onbase ECG ORDERABLES Final Result * ECG 12 lead (10/03/2024 9:23 AM EDT) Only the most recent of2 resultswithin the time period is included. Ventricular Rate ECG 73 BPM GEMUSE Atrial Rate 73 BPM GEMUSE P-R Interval 220 ms GEMUSE QRS Duration 74 ms GEMUSE Q-T Interval 382 ms GEMUSE QTc 420 ms GEMUSE P Wave [place] 15 degrees GEMUSE R [place] 14 degrees GEMUSE T [place] 24 degrees GEMUSE ECG Interpretation Sinus rhythm with 1st degree A-V block Cannot rule out Anterior infarct , age undetermined Abnormal ECG When compared with ECG of 03-OCT-2024 05:40, MT interval has increased Confirmed by MD Rogelio, Parker ([id number]) on 10/03/2024 5:49:47 PM GEMUSE 10/03/2024 9:23 AM EDT 10/03/2024 5:49 PM EDT Zain Pagan MD ECG ORDERABLES Final Resul [...] Signed Date: 10/03/2024 09:30 ET Workstation ID: [id number] Transcribed By: Self Edit Transcribed Date: 10/03/2024 [...] Signed Date: 10/03/2024 09:30 ET Workstation ID: [id number] Transcribed By: Self Edit Transcribed Date: 10/03/2024 [...] Signed Date: 10/03/2024 09:21 ET Workstation ID: [id number] Transcribed By: Self Edit Transcribed Date: 10/03/2024 [...] Signed Date: 10/03/2024 09:21 ET Workstation ID: [id number] Transcribed By: Self Edit Transcribed Date: 10/03/2024 09:11 ET Zain Pagan MD IMG CT PROCEDURES Final Res ult * Troponin I high sensitivity (10/03/2024 8:24 AM EDT) Only the most recent of2 resultswithin the time period is included. High Sensitivity Troponin I 4 <=54 ng/L LAB CHEMISTRY METHOD 10/03/2024 9:29 AM EDT [facility] Blood Venous blood specimen / Unknown Venipuncture / Unknown 10/03/2024 8:24 AM EDT 10/03/2024 8:55 AM EDT Narrative [facility] - 10/03/2024 9:29 AM EDT High levels of biotin in samples may falsely decrease hsTroponin values. Use caution when interpreting hsTroponin results in patients taking biotin who exhibit renal impairment (eGFR <60) or in patients taking more than 20 mg/day of biotin. Zain Pagan MD LAB BLOOD ORDERABLES Final Result [facility] [address] [place] [address], [place] [phone] * XR Chest 2 Views (10/03/2024 6:33 [...] Signed Date: 10/03/2024 06:44 ET Workstation ID: [id number] Transcribed By: Self Edit Transcribed Date: 10/03/2024 [...] Signed Date: 10/03/2024 06:44 ET Workstation ID: [id number] Transcribed By: Self Edit Transcribed Date: 10/03/2024 06:41 ET us Zain Pagan MD IMG XR PROCEDURES Final Res ult * (ABNORMAL) CBC auto differential (10/03/2024 5:51 AM EDT) WBC 15.5(H) 4.8 - 10.8 K/mcL LAB [facility] RBC 4.60 3.80 - 4.80 M/mcL LAB HEMETOLOGY METHOD 10/03/2024 6:29 AM [facility] Hemoglobin 12.5 11.5 - 16.0 g/dL LAB HEMETOLOGY METHOD 10/03/2024 6:29 AM [facility] Hematocrit 38.3 35.0 - 47.0 [...] 10/03/2024 6:29 AM [facility] Basophils Relative 0.4 % LAB HEMETOLOGY METHOD 10/03/2024 6:29 AM [facility] Immature Granulocytes Relative 0.5 % LAB HEMETOLOGY METHOD 10/03/2024 6:29 AM [facility] Neutrophils Absolute 11.01(H) 1.50 - 7.00 K/mcL LAB HEMETOLOGY METHOD 10/03/2024 6:29 AM [facility] Lymphocytes Absolute 3.15 1.00 - 5.00 K/mcL LAB HEMETOLOGY METHOD 10/03/2024 6:29 AM [facility] Monocytes Absolute 0.95 0.20 - 1.00 K/mcL LAB HEMETOLOGY METHOD 10/03/2024 6:29 AM [facility] Eosinophils Absolute 0.24 0.00 - 0.50 K/mcL LAB HEMETOLOGY METHOD 10/03/2024 6:29 AM [facility] Basophils Absolute 0.06 0.00 - 0.20 K/mcL LAB HEMETOLOGY METHOD 10/03/2024 6:29 AM EDT [facility] Immature Granulocytes Absolute 0.07(H) 0.00 - 0.03 K/mcL LAB HEMETOLOGY METHOD 10/03/2024 6:29 AM EDT [facility] Blood Venous blood specimen / Unknown Venipuncture / Unknown 10/03/2024 5:51 AM EDT 10/03/2024 6:22 AM EDT us Zain Pagan MD LAB BLOOD ORDERABLES Final Result Performing Organization Address City/[facility]/ZIP Co de Phone Number [facility] [address] [place] [address], [place] [phone] * (ABNORMAL) C-reactive protein (10/03/2024 5:51 AM EDT) C-Reactive Protein 1.58(H) <=0.50 mg/dL LAB CHEMISTRY METHOD 10/03/2024 10:03 AM EDT [facility] Blood Venous blood specimen / Unknown Venipuncture / Unknown 10/03/2024 5:51 AM EDT 10/03/2024 6:22 AM EDT us Zain Pagan MD LAB BLOOD ORDERABLES Final Result Performing Organization Address City/[facility]/ZIP Co de Phone Number [facility] [address] [place] [address], [place] [phone] * B-type natriuretic peptide (10/03/2024 5:51 AM EDT) BNP 31 <=100 pcg/mL LAB CHEMISTRY METHOD 10/03/2024 6:59 AM EDT [facility] Blood Venous blood specimen / Unknown Venipuncture / Unknown 10/03/2024 5:51 AM EDT 10/03/2024 6:22 AM EDT us Zain Pagan MD LAB BLOOD ORDERABLES Final Result Performing Organization Address [facility] Co de Phone Number [facility] [address] [place] [address], [place] [phone] * (ABNORMAL) Magnesium (10/03/2024 5:51 AM EDT) Pathologist [facility] Magnesium 1.8(L) 1.9 - 2.6 mg/dL LAB CHEMISTRY METHOD 10/03/2024 6:49 AM EDT [facility] Blood Venous blood specimen / Unknown Venipuncture / Unknown 10/03/2024 5:51 AM EDT 10/03/2024 6:22 AM EDT Zain Pagan MD LAB BLOOD ORDERABLES Final Result Performing Organization Address [facility] de Phone Number [facility] [address] [place] [address], [place] [phone] * Lipase (10/03/2024 5:51 AM EDT) Pathologist [facility] Lipase 26 13 - 75 unit/L LAB CHEMISTRY METHOD 10/03/2024 6:49 AM EDT [facility] Blood Venous blood specimen / Unknown Venipuncture / Unknown 10/03/2024 5:51 AM EDT 10/03/2024 6:22 AM EDT Zain Pagan MD LAB BLOOD ORDERABLES Final Result Performing Organization Address [facility] de Phone Number [facility] [address] [place] [address], [place] [phone] * (ABNORMAL) Comprehensive metabolic panel (10/03/2024 5:51 AM EDT) Sodium 128(L) 133 - 145 mmol/L LAB CHEMISTRY METHOD 10/03/2024 6:49 AM EDT [facility] Potassium 4.3 3.5 - [...] g/dL LAB CHEMISTRY METHOD 10/03/2024 6:49 AM EDT [facility] Albumin 3.8 3.2 - 5.0 g/dL LAB CHEMISTRY METHOD 10/03/2024 6:49 AM EDT [facility] Total Bilirubin 0.4 0.0 - 1.4 mg/dL LAB CHEMISTRY METHOD 10/03/2024 6:49 AM EDT [facility] Blood Venous blood specimen / Unknown Venipuncture / Unknown 10/03/2024 5:51 AM EDT 10/03/2024 6:22 AM EDT us Zain Pagan MD LAB BLOOD ORDERABLES Final Result [facility] [address] [place] [address], [place] [phone] * US Abdomen Limited (07/25/2024 7:01 AM EDT) Anatomical Region Laterality Modality Body Ultrasound 07/25/2024 3:36 PM EDT Impressions 07/25/2024 3:40 PM EDT Normal study. -------- FINAL REPORT -------- Dictated By: Laith Middleton Dictated Date: 07/25/2024 15:36 ET Assigned Physician: Laith Middleton Reviewed and Electronically Signed By: Laith Middleton Signed Date: 07/25/2024 15:40 ET Workstation ID: [id number] Transcribed By: Self Edit Transcribed Date: 07/25/2024 [...] Signed Date: 07/25/2024 15:40 ET Workstation ID: [id number] Transcribed By: Self Edit Transcribed Date: 07/25/2024 15:36 ET us Silvia DAILY IMG US PROCEDURES Final Resul t * Hepatic function panel (07/14/2024 10:51 AM EDT) Total Protein 7.3 6.0 - 8.0 g/dL LAB CHEMISTRY METHOD 07/14/2024 3:30 PM EDT [facility] Albumin 4.0 3.2 - 5.0 g/dL LAB CHEMISTRY METHOD 07/14/2024 3:30 PM EDT [facility] Total Bilirubin 0.4 0.0 - 1.4 mg/dL LAB CHEMISTRY METHOD 07/14/2024 3:30 PM EDT [facility] Bilirubin, Direct 0.1 0.0 - 0.3 mg/dL LAB CHEMISTRY METHOD 07/14/2024 3:30 PM EDT [facility] Bilirubin, Indirect 0.3 0.0 - 1.1 mg/dL LAB CHEMISTRY METHOD 07/14/2024 3:30 PM EDT [facility] ALT (SGPT) 25 10 - 60 unit/L LAB CHEMISTRY METHOD 07/14/2024 3:30 PM EDT [facility] AST (SGOT) 17 10 - 42 unit/L LAB CHEMISTRY METHOD 07/14/2024 3:30 PM EDT [facility] Alkaline Phosphatase 58 42 - 121 unit/L LAB CHEMISTRY METHOD 07/14/2024 3:30 PM EDT [facility] Blood Venous blood specimen / Unknown Venipuncture / Unknown 07/14/2024 10:51 AM EDT 07/14/2024 10:51 AM EDT Silvia DAILY LAB BLOOD ORDERABLES Final Re sult [facility] [address] [place] [address], [place] [phone] * (ABNORMAL) Lipid panel (09/20/2023) LDL/HDL Ratio [...] R esult * Hepatitis C Screening (09/18/2020) [facility] Hepatitis C Screening abstracted Historical Provider HEALTH MAINTENANCE Final Result from Last 3 Months or Most Recently Relevant to Health Maintenance Insurance MEDICAID - [place] [employer] MEDICARE Advance Directives Documents on File Type Date Recorded Patient Math Specialist Expl anation Health Care Decision (hx) 01/09/2023 [...] Esteves Spouse Health Care Agent Care Teams Collision Estimator Relationship Specialty Start Date End Date Belia Villavicencio MD [address] [place] [id number] PCP - General Internal Medicine 01/17/24
--- OUTSIDE RECORDS SUMMARY | 2024-10-11 13:59 | XMS_ITS | Clinical Summary ---
Author Organization [facility] Address [address] [place] [id number] Care Team Providers Care Baseball Coach Name Role Phone Urvashi Paredes NP Primary Care Provider [phone] Allergies Active Allergy Reactions Criticality Noted Date [...] age to complete this topic Care Teams Baseball Coach Relationship Specialty Start Date End Date Urvashi Paredes, STUDENT DEVELOPMENT COORDINATOR [address] [place] [phone] PCP - General Nurse Practitioner 08/10/20
--- OUTSIDE RECORDS SUMMARY | 2024-10-11 13:59 | XMS_ITS | Patient Health Record ---
Author Organization [facility] Address [address] [facility] [address] [place] [address] Care Team Providers Care Potato Chip Processing Supervisor Name Role Phone SHANIQUA FERNANDEZ MD Primary Care Provider Unavail able Heena Brasher Unavailable [phone] Reason For Referral No Information Medications Medication [...]
== END 2024-10-11 14:16 | disposition home or self-care (01) ==
LOC: HO.RHES 13:29
PROVIDERS: PCP Internal Medicine; Visit Provider Student in an Organized Health Care Education/Training Program
DX: M31.6 Other giant cell arteritis (principal); M35.3 Polymyalgia rheumatica; Z51.81 Encounter for therapeutic drug level monitoring; Z79.631 Long term (current) use of antimetabolite agent; Z79.52 Long term (current) use of systemic steroids
CPT/HCPCS: 99213; G2211

== ENCOUNTER → 2024-10-11 13:28 | Outpatient (BNVA) | payer OTHER, SELFPAY | PROVIDERS: PCP Internal Medicine; Visit Provider Student in an Organized Health Care Education/Training Program | DX: Z51.81 Encounter for therapeutic drug level monitoring (principal); M31.6 Other giant cell arteritis; M35.3 Polymyalgia rheumatica; Z79.2 Long term (current) use of antibiotics; Z79.52 Long term (current) use of systemic steroids; Z79.631 Long term (current) use of antimetabolite agent; Z79.899 Other long term (current) drug therapy | CPT/HCPCS: 99212 ==

== ENCOUNTER 2025-01-10 09:40 | Outpatient (REF) | payer OTHER, SELFPAY ==
--- OUTSIDE RECORDS SUMMARY | 2025-01-08 13:40 | XMS_ITS | Encounter Summary ---
Author Organization [facility] Address [address] [place] [address] Care Team Providers Care Manufactured Buildings Supervisor Name Role Phone Belia Villavicencio MD Primary Care Prov ider Reason for Visit * Reason Comments Fatty Liver Encounter Details Date Type Department Care Team ([facility] st Contact Info) Description 01/08/2025 1:40 PM EST Office Visit Gastroenterology - [address] [phone] Silvia Mcfarlane PA [address] [place] [id number] Celiac disease (Primary Dx); Irritable bowel syndrome with diarrhea; NAFLD (nonalcoholic fatty liver disease) Social History Tobacco Use Types Packs/Day Years [...] Date Recorded What is your living situation? Unrecognized valu e 03/27/2024 Interpersonal Safety Answer Date Record ed Physical Abuse Unrecognized value 10/11/2024 Verbal Abuse Unrecognized value 10/11/2024 Comments No Sex and Gender Information Value [...] Sign Reading Time Taken Comments Blood Pressure 122/76 01/08/2025 1:38 PM EST Pulse 72 01/08/2025 1:38 PM EST Temperature - - Respiratory Rate - - Oxygen Saturation 98% 01/08/2025 1:38 PM EST Inhaled Oxygen Concentration - - Weight 73.9 kg (163 lb) 01/08/2025 1:38 PM EST Height 158.8 cm (5' 2.5 ) 01/08/2025 1:38 PM EST Body Mass Index 29.34 01/08/2025 1:38 PM EST documented in this encounter Functional Status * Are you deaf or do you have serious difficulty hearing? Answer Date of Assessment Author No 10/03/2024 10:44 AM Lex Ramos RN * Are you blind or do you have serious difficulty seeing, even when wearing glasses? Answer Date of Assessment Author No 10/03/2024 10:44 AM Lex Ramos RN * Do you have serious difficulty walking or climbing stairs? Answer Date of Assessment Author No 10/03/2024 10:44 AM Lex Ramos RN * Do you have serious difficulty dressing or bathing? Answer Date of Assessment Author No 10/03/2024 10:44 AM Lex Ramos RN * Because of a physical, mental, or emotional condition, do you have serious difficulty doing errandsalone such as visiting the doctor? Answer Date of Assessment Author No 10/03/2024 10:44 AM Lex Ramos RN documented as of this encounter Mental Status * Because of a physical, mental, or emotional condition, do you have serious difficulty concentrating, remembering, or making decisions? (5 years old or older) Answer Entry Date Author No 10/03/2024 10:44 AM Lex Ramos RN documented in this encounter Progress Notes * ABIMBOLA Butler 01/08/2025 1:40 PM EST Images from the original note were not included. CHIEF COMPLAINT: Chief Complaint Patient presents with Fatty Liver IDENTIFIER: Marni Esteves is a 69 y.o. old female History of Present Illness The patient is a female who presents for evaluation of oral thrush, celiac disease, irritable bowelsyndrome, and gastroparesis. She is accompanied by her . She has been experiencing persistent oral thrush, which she suspects may be a side effect of her medication. Despite the use of nystatin swish and swallow, there has been no improvement in her condition. However, the condition has not deteriorated either. She was subsequently prescribed lozenges, which she collected from the pharmacy. She has also been using toothpaste containing peroxide and a tongue scraper, which have contributed to some improvement. Nevertheless, she continues to experiencea constant coating on her tongue. She has been using an antiseptic mouthwash before brushing her teeth, followed by the use of the peroxide-containing toothpaste, which seems to be effective. She has a history of rheumatoid arthritis, celiac disease, and giant cell arteritis, which have ledto the development of large vessel vasculitis affecting various organs. She had a consultation withher primary care physician last Wednesday, during which her blood work revealed low sodium levels. Consequently, she has been referred to a health researcher. She has been experiencing low back pain but reports that her overall condition is stable and improving. She has been adhering to a gluten-free diet due to her celiac disease. She has had instances where she inadvertently consumed gluten and experienced symptoms the following day. She has an upcoming gastric emptying study scheduled for 02/14/2025. She has been avoiding dining out at restaurants. She has been managing her irritable bowel syndrome with dicyclomine, which she finds extremely beneficial. She takes methotrexate once a week, which initially caused stomach discomfort when taken on Saturdays. She has since switched to taking it on Mondays. She takes dicyclomine as needed, typically 2 to 3 days a week, and finds it very effective. She underwent an endoscopy on 10/11/2024, during which undigested food was found in her stomach. She is scheduled to have a gastric emptying study. PAST SURGICAL HISTORY: Rhiannon fundoplication SOCIAL HISTORY Marital Status: Occupation: Retired Diet: Avoiding gluten due to celiac disease ROS: GENERAL: No malaise, significant weight loss or fever HEENT: No changes in hearing or vision, nose bleeds or other nasal problems NECK: No lumps, goiter, pain or significant neck swelling RESPIRATORY: No cough, wheezing or shortness of breath CARDIOVASCULAR: No chest pain, leg swelling or palpitations GI: See HPI. MUSCULOSKELETAL: No joint pain or swelling, back pain, or muscle pain. SKIN: No lesions, rash or itching NEURO: No persistent headache, syncope, seizures, weakness or numbness PAST MEDICAL HISTORY: Medical History[1] Surgical History[2] SOCIAL HISTORY: Social History Tobacco Use Smoking status: Former Current packs/day: 0.00 Types: Cigarettes Quit date: 1998 Years since quittin. Smokeless tobacco: Never Tobacco comments: QUIT SMOKING 1998 Substance Use Topics Alcohol use: Yes Comment: rarely- red wine FAMILY HISTORY: Family History[3] MEDICATIONS DISCONTINUED/REORDERED: There are no discontinued medications. ACTIVE MEDICATIONS: Current Medications[4] ALLERGIES: Current Allergies[5] PHYSICAL EXAM: Visit Vitals BP 122/76 (BP Location: Left arm, Patient Position: Sitting, BP Cuff Size: Adult) Pulse 72 Ht 1.588 m (62.5 ) Wt 73.9 kg (163 lb) SpO2 98% BMI 29.34 kg/m?? OB Status Hysterectomy Smoking Status Former BSA 1.76 m?? APPEARANCE: Alert and in no acute distress HEART: RRR with normal S1 and S2, no murmurs LUNG: clear to auscultation ABDOMEN: Bowel sounds normoactive, no bruits, soft, non-tender EXTREMITIES: Extremities warm and well perfused without clubbing, cyanosis, or edema NEURO: Awake, alert and oriented x 3 with symmetrical reflexes Physical Exam LABS: ntains abnormal data Comprehensive metabolic panel Order: [id number] Status: Final result Dx: Primary hypertension Test Result Released: Yes (seen) Messages: Seen 0 Result Notes 1 Patient Communication View Follow-Up Encounter 1 Topic Component Ref Range & Units (hover) 7 d ago (01/01/25) 3 mo ago (10/03/24) 5 mo ago (07/14/24) 7 mo ago (05/23/24) 11 mo ago (02/08/24) 11 mo ago (01/19/24) 11 mo ago (01/19/24) Sodium 130 Low 128 Low 129 Low 136 140 139 Potassium 4.3 4.3 4.3 3.2 Low 4.7 5.1 Chloride 95 Low 93 Low 95 Low 104 106 107 CO2 25 28 24 21 28 28 Anion Gap 10 7 10 11 6 4 Glucose 90 89 101 High 115 High 104 High 99 BUN 10 12 16 7 9 8 Creatinine 0.65 0.74 0.59 0.66 0.65 0.68 eGFR 95 88 CM 98 CM 96 CM 96 CM 95 CM Comment: Calculation based on the Chronic Kidney Disease Epidemiology Collaboration (CKD-EPI) equation refit without adjustment for race. BUN/Creatinine Ratio 15.4 16.2 27.1 10.6 13.8 11.8 Calcium 10.3 10.1 9.3 9.3 9.7 9.3 AST (SGOT) 22 10 17 16 ALT (SGPT) 31 22 25 23 Alkaline Phosphatase 66 71 58 74 Total Protein 7.9 6.9 7.3 7.2 Albumin 4.6 3.8 4.0 3.7 Total Bilirubin 0.4 0.4 0.4 0.2 Resulting Agency [facility] Tissue exam: [id number] Order: [id number] Collected 10/11/2024 16:07 Status: Final result Dx: Esophageal spasm Test Result Released: Yes (seen) Messages: Seen 2 Result Notes 1 Patient Communication Component Ref Range & Units (hover) Final Diagnosis A. Small Intestine, Duodenum, biopsies: - Duodenal mucosa with preserved villi and no specific pathologic changes. - Negative for increased intraepithelial lymphocytes. B. Esophagus, biopsies: - Esophageal squamous mucosa with intraepithelial eosinophils (up to 13 eosinophils per hpf) with associated patchy acute inflammation, suggestive of reflux esophagitis. at 0929 Gross Description A. Small Intestine, Duodenum, biopsies: Labeled duodenum . Received in formalin, are four irregular soft to rubbery, velasquez, velvety, tissue fragments, approximately ranging from 0.3 cm to 0.4 cm in greatest diameters, which are wrapped in paper and submitted in toto in one cassette, four pieces, multiple levels. B. Esophagus, biopsies: Labeled esophagus . Received in formalin, are five irregular soft to rubbery, white-brown tissue fragments, approximately ranging from 0.2 cm to 0.75 cm in greatest diameters, which are wrapped in paper and submitted in toto in one cassette, five pieces, multiple levels. Please note: Small tissue fragments may not survive processing. hs/DG Disclaimer Unless otherwise specified, all tissue is 10% NB formalin fixed and paraffin embedded. Resulting Agency [facility]: Narrative & Impression EXAMINATION: CT ABDOMEN/PELVIS WITH IV CONTRAST CLINICAL [...] The liver contour is smooth. There are subtleareas of low attenuation adjacent to the falciform ligament and in the left lobe liver. These couldrepresent perfusion abnormalities but are not entirely specific. [...] mass with a high density perhaps a biopsysite marker. There are a few minor nonspecific [...] Signed Date: 10/03/2024 09:21 ET Workstation ID: [id number] Transcribed By: Self Edit Transcribed Date: 10/03/2024 09:11 ET Narrative & Impression FINDINGS: Double contrast esophagram performed. COMPARISON: Esophagram February 16, 2024 HISTORY: Patient is a 69-year-old female with history of hiatal hernia repair in January 2024 now with postprandial epigastric pain. Health Information Managers radiographs: 1 view chest radiograph demonstrates cardiac and mediastinal contours within normal limits. Lungs are clear bilaterally. Costophrenic angles are sharp. There is elevation of the right hemidiaphragm, also seen on prior imaging from February 16, 2024. Cholecystectomy clips are present. There are moderate to severe bony degenerative changes of the thoracolumbar spine noted. Aorticknob is calcified. One view lateral soft tissue neck demonstrates no prevertebral soft tissue masses. Airway is widely patent. There are mild bony degenerative changes of the cervical spine noted, including anterior osteophyte formation at the level of C5-6. Effervescent crystals were administered orally. Thick and thin barium were administered orally under fluoroscopic control. Pharyngoesophagram: Rapid sequence imaging of the hypopharynx during swallowing demonstrates promptinitiation of swallowing. There is normal soft palate elevation and normal epiglottic motion. Thereis no laryngeal penetration or fady aspiration. There is no residual in the vallecula nor in the piriform sinuses. Thoracic esophagus: There is mild esophageal dysmotility. Normal distensibility and mucosal patternwithout evidence of ulceration, stricture or mass formation. Distal esophageal narrowing seen on prior imaging from February 2024 has since resolved. Hiatal hernia: None Reflux: Unable to elicit 13mm Barium pill: Swallowed without difficulty. Prompt passage of pill from the esophagus into the stomach. DAP: 313.2 uGym^2 IMPRESSION: Mild esophageal dysmotility No evidence of contrast leak, extravasation or residual hernia status post fundoplication with neartotal resolution of distal esophageal narrowing/postsurgical edema seen on prior imaging from February 2024. -------- FINAL REPORT -------- Dictated By: Nona Kapadia Dictated Date: 10/09/2024 09:21 ET Assigned Physician: Laith Middleton Reviewed and Electronically Signed By: Laith Middleton Signed Date: 10/09/2024 14:57 ET Workstation ID: [id number] Transcribed By: Self Edit Transcribed Date: 10/09/2024 09:31 ET Resident/PA/DYE STAND LOADER: Nona Kapadia IMPRESSION: 1. Celiac disease (Primary) 2. Irritable bowel syndrome with diarrhea 3. NAFLD (nonalcoholic fatty liver disease) PLAN: Pleasant 69 years old female whose past medical history anemia, RA, GERD, giant cell arteritis withpolymyalgia rheumatica, hypercholesteremia, hypertension, hypothyroidism, anxiety, celiac disease, paraesophageal hernia repair, sleep apnea, low back, obesity, palpitation, radiculitis, who complains of epigastric abdominal pain that comes and goes. Recently she was also battling oral thrush. Doing better. Patient did have a large hiatal hernia that was repaired last year. She was complaining of odynophagia. Therefore, she did have an endoscopy done on 10/11/2024 that showed Rhiannon fundoplication and food in the stomach. She will go for gastric emptying study. Biopsy of duodenum was normal but esophageal biopsy showed reflux esophagitis. Colonoscopy done in 2022 that showed internal hemorrhoids and diverticulosis. Assessment & Plan 1. Gastroparesis: - Gastric emptying study scheduled for 02/14/2025 to confirm diagnosis. - Eat small, frequent meals. - Avoid red meats and pork; opt for chicken, fish, soups, and vegetables. - If symptoms such as nausea, vomiting, abdominal pain, or bloating occur, consider Reglan to enhance gastric motility. 2. Oral Thrush: - Likely a side effect of methotrexate and prednisone. - Continue using antiseptic mouthwash before brushing teeth with peroxide toothpaste. - If symptoms worsen, contact the office for additional clotrimazole troches, nystatin, or Diflucantablets. 3. Celiac Disease: - Maintain a strict gluten-free diet. - Be cautious about potential gluten contamination, especially when dining out. - Last endoscopy performed on 10/11/2024. 4. Irritable Bowel Syndrome: - Continue taking dicyclomine up to three times daily for diarrhea as needed. 5. GERD with esophagitis: - Patient should continue taking omeprazole. 6. NAFLD: - LFTS nl, avoid alcohol, be on low-fat low-carb diet Follow-up: Next scheduled visit in 2025. Total time of today's encounter is 40 minutes in preparing to see the patient, reviewing labs, diagnostic studies as well as other provider notes, documenting and charting, creating an HPI, performing a medically appropriate exam as well as counseling patient. There was documentation in EMR after visit. None of which time was spend performing separately billable procedures or ancillary services. I have obtained verbal consent from Marni Esteves prior to the recording. I have advised Marni Esteves that she may refuse the recording and require the recording to be turned off at any time during this encounter. Silvia Mcfarlane, KarliS Gastroenterology [facility] [address] [place] [address] [address] [place] [address] [1] Past Medical History: Diagnosis Date Anemia Anxiety Celiac disease CPAP (continuous positive airway pressure) dependence GERD (gastroesophageal reflux disease) Hypertension Hypothyroid Hypothyroidism Paraesophageal hernia PONV (postoperative nausea and vomiting) Rheumatoid arthritis (CMS/HCC V24, CMS/HCC V28) 01/2024 Sleep apnea TIA (transient ischemic attack) 03/2022 [2] Past Surgical History: Procedure Laterality Date CHOLECYSTECTOMY COLONOSCOPY ESOPHAGOGASTRODUODENOSCOPY HYSTERECTOMY PARAESOPHAGEAL HERNIA REPAIR N/A 01/18/2024 w/ obstruction [3] Family History Problem Relation Name Age of Onset Hypertension Mother Anxiety disorder Mother Arthritis Mother Stroke Father Other cancer Sister Rheum arthritis Sister Rheum arthritis Sister Other (ca oral) Brother Other (glutin senitive) Daughter No Known Problems Son [4] Current Outpatient Medications Medication Sig Dispense Refill calcium citrate-vitamin D (CITRACAL+D) 315 mg-5 mcg (200 unit) per tablet Take 1 tablet by mouth 1 (one) time each day. cetirizine (ZyrTEC) 10 mg tablet Take 1 tablet (10 mg total) by mouth at bedtime. 90 tablet 0 clonazePAM (KlonoPIN) 0.5 mg tablet TAKE 1 TABLET (0.5 MG TOTAL) BY MOUTH 3 TIMES A DAY MAX DAILY AMOUNT: 1.5 MG 90 tablet 2 dicyclomine (BENTYL) 10 mg capsule TAKE 1 CAPSULE BY MOUTH 3 TIMES A DAY WITH MEALS AND AT BEDTIME NEEDED FOR ABDOMINAL PAIN 270 capsule 1 ferrous sulfate 325 mg (65 mg elemental iron) tablet Take 1 tablet (325 mg total) by mouth 1 (one) time each day. 90 tablet 0 folic acid (FOLVITE) 1 mg tablet Take by mouth 1 (one) time each day. levothyroxine (SYNTHROID, LEVOTHROID) 100 mcg tablet Take 1 tablet (100 mcg total) by mouth 1 (one)time each day before breakfast. 90 tablet 0 lisinopriL (PRINIVIL,ZESTRIL) 5 mg tablet TAKE 1 TABLET BY MOUTH 1 TIME EACH DAY. 90 tablet 1 methotrexate 2.5 mg tablet Take 6 tablets (15 mg total) by mouth 1 (one) time per week ondansetron (ZOFRAN) 4 mg tablet Take 1 tablet (4 mg total) by mouth 3 (three) times a day. 20 tablet 0 predniSONE (DELTASONE) 1 mg tablet Take 1 tablet (1 mg total) by mouth 1 (one) time each day. spironolactone (Aldactone) 50 mg tablet Take 1 tablet (50 mg total) by mouth 1 (one) time each day.30 each 11 No current facility-administered medications for this visit. [5] Allergies Allergen Reactions Hydralazine Cardiac Issue Severe chest pain Yayviqh-Kji-Qxk Reductase Inhibitors Muscular Issues Gluten Itching and GI intolerance Sulfa (Sulfonamide Antibiotics) Rash documented in this encounter Plan of Treatment Upcoming Encounters Date Type Department Care Team (Late st Contact Info) Description 01/29/2025 1:00 PM EST Office Visit Adult Medicine - [place] [address] [place] [phone] Caro Vallecillo PA [address] [place] [address] 02/14/2025 8:00 AM EST Appointment [facility] Nuclear Medicine [address] [place] [phone] 05/31/2025 9:10 AM EDT Office Visit [facility] - [facility] [address] [facility] [address] [place] [phone] Peyton Castillo NP [address] [place] [address] [place] [phone] 08/20/2025 1:00 PM EDT Office Visit Gastroenterology - [address] [facility] [address] [place] [address] Silvia Mcfarlane PA [address] [facility] [address] [place] [address] documented as of this encounter Visit Diagnoses Diagnosis Celiac disease- Primary Irritable bowel syndrome with diarrhea Irritable bowel syndrome NAFLD (nonalcoholic fatty liver disease) documented in this encounter Additional Health Concerns Assessment Noted Time PHQ-9 Depression Total Score: 0 03/27/19 25 4:47 PM EST documented as of this encounter Care Teams Manufactured Buildings Supervisor Relationship Specialty Start Date End Date Belia Villavicencio MD [address] [place] [address] PCP - General Internal Medicine 01/17/24 documented as of this encounter
--- OUTSIDE RECORDS SUMMARY | 2025-01-10 10:51 | XMS_ITS | Clinical Summary ---
Author Organization [facility] Address [address] [place] [address] Phone Care Team Providers Care Balance Bridge Inspector Name Role Phone Belia Goodrich MD Primary Care Prov ider Allergies Active Allergy Reactions Criticality Noted Date Comments Gluten Itching,GI intolerance 01/03/2024 Hydralazine Cardiac Issue High 02/16/2024 Severe chest pain Ptcpohl-Sda-Nuy Reductase Inhibitors Muscular Issues High 01/08/2023 Sulfa (Sulfonamide Antibiotics) Rash 01/03/2024 Medications spironolactone (Aldactone) 50 mg tablet Take 1 tablet (50 mg total) by mouth 1 (one) time each day. 30 each 11 4 02/14/20 25 Active predniSONE (DELTASONE) 1 mg tablet [...] mouth 1 (one) time each day. Active dicyclomine (BENTYL) 10 mg capsule TAKE 1 CAPSULE BY MOUTH 3 TIMES A DAY WITH MEALS AND AT BEDTIME NEEDED FOR ABDOMINAL PAIN 270 capsule 1 5 Active cetirizine (ZyrTEC) 10 mg tablet Take 1 tablet (10 mg total) by mouth at bedtime. 90 tablet 5 Active lisinopriL (PRINIVIL,ZESTR IL) 5 mg tablet TAKE 1 TABLET BY MOUTH 1 TIME EACH DAY. 90 tablet 1 5 Active ferrous sulfate 325 mg (65 mg elemental iron) tablet Take 1 tablet (325 mg total) by mouth 1 (one) time each day. 90 tablet 5 Active levothyroxine (SYNTHROID, LEVOTHROID) 100 mcg tablet Take 1 tablet (100 mcg total) by mouth 1 (one) time each day before breakfast. 90 tablet 5 Active clonazePAM (KlonoPIN) 0.5 mg tabletIndicatio ns:Panic disorder (episodic paroxysmal anxiety) TAKE 1 TABLET (0.5 MG TOTAL) BY MOUTH 3 TIMES A DAY MAX DAILY AMOUNT: 1.5 MG 90 tablet 2 5 Active ondansetron (ZOFRAN) 4 mg tablet Take 1 tablet (4 mg total) by mouth 3 (three) times a day. 20 tablet 5 01/16/20 25 Active famotidine (Pepcid) 20 mg tablet Take 1 tablet (20 mg total) by mouth 1 (one) time each day. 90 each 1 5 07/09/19 26 Active Active Problems Problem Noted Date Diagnosed Date Large vessel vasculitis ([facility] V24, [facility] V2 8) 01/01/2025 PMR (polymyalgia rheumatica) ([facility] V24) 01/01 Celiac disease 03/28/2024 GERD (gastroesophageal reflux disease) [...] Giant cell arteritis with po lymyalgia rheumatica ([facility] V24, [facility] V28) 12/29/2022 Overview (01/11/2024): 12/28 - engaged with Dr. Reeves of rheumatology at [facility] 03/30/2022 Positive DAREN (antinuclear antibody) 06/18/2021 Obesity (BMI 30.0-34.9) 06/17/2021 Obstructive sleep apnea 06/17/2021 Overview (01/11/2024): Using CPAP (June 2021) Lumbago 10/29/2009 Radiculitis, lumbosacral 10/29/2009 Anemia 10/04/2009 Rheumatoid arthritis ([facility] V24, [facility] V28) 10/04/2009 Hypercholesteremia 10/04/2009 Assessment & Plan (06/05/2024 10:57 AM EDT): Hypertension 10/04/2009 Assessment & Plan (06/05/2024 10:57 AM EDT): Orders: Transthoracic echocardiogram (TTE) complete with PRN contrast, bubble, strain, and 3D order panel; Future Hypothyroid 10/04/2009 Panic disorder 10/04/2009 Resolved Problems Problem Noted Date Diagnosed Date Resolved Date Hiatal hernia 03/03/2023 01/19/2024 Assessment & Plan (01/19/2024 2:29 PM EST): Ms. Bear is a 68 y/o female who is [...] Encounters Date Type Department Care Team Description 01/08/2025 1:40 PM EST Office Visit Gastroenterology - [address] [facility] [address] [place] [phone] Silvia Mcfarlane PA Celiac disease (Primary Dx); Irritable bowel syndrome with diarrhea; NAFLD (nonalcoholic fatty liver disease) 01/08/2025 Telephone Gastroenterology - [address] [facility] [address] [facility] [address] [place] [phone] Silvia Mcfarlane PA 01/02/2025 Results Follow-Up Adult [address] [phone] Caro Vallecillo PA 01/02/2025 Telephone Adult [facility] [address] [place] [address] Niyah Burk PA 01/01/2025 1:30 PM EDT Office Visit Adult [facility] [address] [place] [address] Caro Vallecillo PA Obstructive sleep apnea (Primary Dx); Encounter for long-term (current) use of high-risk medication; Large vessel vasculitis ([facility]/HCC V24, CMS/HCC V28); Giant cell arteritis with polymyalgia rheumatica (CMS/HCC V24, CMS/HCC V28); Rheumatoid arthritis, involving unspecified site, unspecified whether rheumatoid factor present (CMS/HCC V24, CMS/HCC V28); PMR (polymyalgia rheumatica) (CMS/HCC V24); Positive DAREN (antinuclear antibody); Gastroesophageal reflux disease without esophagitis; Hypercholesteremia; Primary hypertension; Hypothyroidism, unspecified type; Panic disorder; Panic disorder (episodic paroxysmal anxiety) 12/15/2024 Telephone Gastroenterology - [place] [address] [facility] [address] [place] [phone] Silvia Mcfarlane PA 11/14/2024 Telephone Adult Medicine - [place] [address] [place] [phone] Belia Shay MD 11/14/2024 Telephone Adult Medicine - [place] [address] [place] [phone] Belia Shay MD 11/14/2024 Telephone Adult Medicine [facility] [address] [place] [phone] Belia Shay MD 10/11/2024 3:58 PM EDT Anesthesia Event [facility] [address] [place] [address] Mitch Willett MD Korobkov, Vitaliy, DO 10/11/2024 2:29 PM EDT - 10/11/2024 11:59 PM EDT Hospital Encounter [facility] [address] [place] [address] Loretta Duron MD Esophageal spasm Discharge Disposition: Home or Self Care from Last 3 Months Immunizations Immunization Administration Dates Next Due Influenza Quadrivalent, 0.5m l, preservative free (Fluarix; FluLaval; Fluzone) ages 6mo and older (Afluria) 3yo and older 04/04/2020 Influenza trivalent, 0.5mL ( Fluzone High-dose) 65yo and older 02/05/2022,01/28/2021 Influenza trivalent, with pr eservative (Fluzone; Afluria) 6mo and older 03/28/2014 Pfizer Covid-19 Bivalent, Or iginal + Ba.1 (Non-US Trademark [facility] Bivalent) 04/20/2022 Tdap Tetanus diptheria acell ular pertussis (Boostrix; Adacel) 7yo and older 02/06/2013,10/04/2009 Surgical History Surgery Date Site/Laterality Comments CHOLECYSTECTOMY HYSTERECTOMY PARAESOPHAGEAL HERNIA REPAIR 01/18/2024 N/A w/ obstruction COLONOSCOPY ESOPHAGOGASTRODUODENOSCOPY Medical History Medical History Date Comments Sleep apnea PONV (postoperative nausea and vomiting) Hypothyroidism Hypertension Anemia Anxiety TIA (transient ischemic attack) 03/2022 GERD (gastroesophageal reflux disease) Paraesophageal hernia CPAP (continuous positive airway pressure) lopez daan Celiac disease Rheumatoid arthritis ([facility] V24, [facility] V28) 01/2024 Hypothyroid Family History Medical History Relation Name Comments [...] care for your loved ones. For example, manager child or elderly care for an older [...] Pulse 72 01/08/2025 1:38 PM EST Temperature 36.6 C (97.8 F) 01/01/2025 1:23 PM EDT Respiratory Rate 15 10/11/2024 4:32 PM EDT Oxygen Saturation 98% 01/08/2025 1:38 PM EST Inhaled Oxygen Concentration - - Weight 73.9 kg (163 lb) 01/08/2025 1:38 PM EST Height 158.8 cm (5' 2.5 ) 01/08/2025 1:38 PM EST Body Mass Index 29.34 01/08/2025 1:38 PM EST Plan of Treatment Upcoming Encounters Date Type Department Care Team (Late st Contact Info) Description 01/29/2025 1:00 PM EST Office Visit Adult Medicine [address] [phone] Caro Vallecillo PA [address] [place] [address] 02/14/2025 8:00 AM EST Appointment [facility] Nuclear Medicine [address] [place] [phone] 05/31/2025 9:10 AM EDT Office Visit [facility] [address] [facility] [address] [place] [phone] Peyton Castillo, AMBIKA [address] [place] [address] [place] [phone] 08/20/2025 1:00 PM EDT Office Visit Gastroenterology - [address] [facility] [address] [place] [phone] Silvia Mcfarlane PA [address] [facility] [address] [place] [address] Health Maintenance Due Date Last Done Comments Breast Cancer Screening 1955 Hepatitis A Vaccines (1 of 2 - Risk 2-dose series) 07/22/1974 Pneumococcal Vaccine: 50+ Years (1 of 2 - PCV) 07/22/1974 RSV Immunization Adult Patients (1 - Risk 50-74 years 1-dose series) 07/22/2005 Zoster Vaccines (1 of 2) 07/22/2005 Hepatitis B Vaccines (1 of 3 - Risk 3-dose series) 2015 DTaP,Tdap,and Td Vaccines (3 - Td or Tdap) 02/06/2023 02/06/2013, 10/04/2009 COVID-19 Vaccine (2024- season) 2024 02/11/2021, 06/20/2020, 05/29/2020 Influenza Vaccine (#1) 2024 , 01/28/2021, 04/04/2020, Additional history exists Medicare Annual Wellness Visit 03/27/2025 03/27/2024 Social Influencers of Health Screening 03/27/2025 03/27/2024 Falls Risk Assessment 10/11/2025 10/11/2024, 025 Hypertension/CHF/CAD Annual BMP Blood Test 01/01/2026 01/01/2025, 10/03/2024, 05/23/2024, Additional history exists Cholesterol Screening (Lipid Panel) [...] this topic Medical Devices Implanted Type Area Assessment Nurse Device Identifier Shelf Expiration Date Model / Serial / Lot Sealant Fibrin Vistaseal 10ml - [id number] - [id number] Implanted:Qty: 1 on 01/18/2024 by Emily Ho MD at [facility] Hemostasis N/A: Abdomen [employer] [id number] 09/13/2025 [id number] / [id number] / [id number] Tissue Ovitex 1s Perm 6x10cm - Sna - [id number] Implanted:Qty: 1 on 01/18/2024 by Emily Ho MD at [facility] Surgical Mesh Sling Implants N/A: Abdomen [employer] [id number] 07/05/2025 [id number] / NA / [id number] 1 Procedures Procedure Name Priority Date/Time Associated Diagnosis Comments DRUG ABUSE SCREEN EXPANDED WITH REFLEX CONFIRMATION, URINE Routine 01/01/2025 2:32 PM EDT Encounter for long-term (current) use of high-risk medication COMPREHENSIVE METABOLIC PANEL Routine 01/01/2025 2:25 PM EDT Primary hypertension THYROID STIMULATING HORMONE WITH REFLEX TO FREE T4 AND FREE T3 Routine 01/01/2025 2:25 PM EDT Hypothyroidism, unspecified type ASIF URINE CULTURE TUBE Routine 11/14/2024 3:28 PM EDT Acute cystitis without hematuria URINALYSIS WITH REFLEX MICROSCOPIC AND CULTURE Routine 11/14/2024 3:28 PM EDT Acute cystitis without hematuria URINALYSIS WITH REFLEX MICROSCOPIC AND CULTURE Routine 11/14/2024 3:28 PM EDT Acute cystitis without hematuria CULTURE URINE Routine 11/14/2024 3:28 PM EDT Acute cystitis without hematuria EGD Routine 10/11/2024 4:11 PM EDT Esophageal spasm TISSUE EXAM Routine 10/11/2024 4:07 PM EDT Esophageal spasm LIPID PANEL Routine 09/20/2023 COLONOSCOPY Routine 10/07/2022 DXA BONE DENSITY STUDY 1+ SITS AXIAL SKEL Routine 03/05/2022 1:21 PM EST Encounter for screening for osteoporosis HEPATITIS C SCREENING Routine 09/18/2020 from Last 3 Months or Most Recently Relevant to Health Maintenance Results * Drug abuse screen expanded with reflex confirmation, urine (01/01/2025 2:32 PM EDT) Amphetamine Screen, Ur Negative Negative LAB CHEMISTRY METHOD 01/01/2025 5:43 PM EDT [facility] Comment:Certain OTC medicati ons containing ephedrine, phenylephrine, pseudoephedrine and phenylpropanolamine can cause false positive results. Barbiturate Screen, Ur Negative Negative LAB CHEMISTRY METHOD 01/01/2025 5:43 PM EDT [facility] Benzodiazepine Screen, Ur Negative Negative LAB CHEMISTRY METHOD 01/01/2025 5:43 PM EDT [facility] Cocaine Screen, Ur Negative Negative LAB CHEMISTRY METHOD 01/01/2025 5:43 PM EDT [facility] Opiate Screen, Ur Negative Negative LAB CHEMISTRY METHOD 01/01/2025 5:43 PM EDT [facility] Cannabinoid (THC) Screen, Ur Negative Negative LAB CHEMISTRY METHOD 01/01/2025 5:43 PM EDT [facility] Comment:Specimens from patie nts taking pantoprazole sodium (Protonix) have been shown to produce false positive results. Fentanyl, Ur Negative Negative LAB CHEMISTRY METHOD 01/01/2025 5:43 PM EDT [facility] Oxycodone Screen, Ur Negative Negative LAB CHEMISTRY METHOD 01/01/2025 5:43 PM T [facility] Urine Urine specimen obtained by clean catch procedure / Unknown Non-blood Collection / Unknown 01/01/2025 2:32 PM EDT 01/01/2025 2:32 PM EDT Narrative [facility] - 01/01/2025 5:43 PM EDT Assay cutoffs: Amphetamines 1000 ng/mL Barbiturates 200 ng/mL Benzodiazepines 200 ng/mL Cocaine 300 ng/mL Fentanyl 1 ng/mL Opiates 300 ng/mL Oxycodone 100 ng/mL THC 50 ng/mL Semi-quantitative assay for screening purposes only. Unconfirmed screening result should not be used for non-medical purposes. *POSITIVE RESULTS ARE AUTOMATICALLY SENT FOR ALTERNATE METHOD CONFIRMATION* us Caro DAILY LAB URINE ORDERABLES Final Result [facility] [address] [place] [address], [place] [phone] * Thyroid stimulating hormone with reflex to free t4 and free t3 (01/01/2025 2:25 PM EDT) Pathologist [facility] TSH 0.77 0.40 - 4.00 mcIU/mL LAB CHEMISTRY METHOD 01/01/2025 6:09 PM EDT [facility] Blood Venous blood specimen / Unknown Venipuncture / Unknown 01/01/2025 2:25 PM EDT 01/01/2025 2:25 PM EDT Caro DAILY LAB BLOOD ORDERABLES Final Result Performing Organization Address [facility]/ZIP Co de Phone Number [facility] [address] [place] [address], [place] [phone] * (ABNORMAL) Comprehensive metabolic panel (01/01/2025 2:25 PM EDT) Pathologist [facility] Sodium 130(L) 133 - 145 mmol/L LAB CHEMISTRY METHOD 01/01/2025 5:07 PM [facility] Potassium 4.3 3.5 - 5.5 mmol/L LAB CHEMISTRY METHOD 01/01/2025 5:07 PM [facility] Chloride 95(L) 96 - 110 mmol/L LAB CHEMISTRY METHOD 01/01/2025 5:07 PM [facility] CO2 25 21 - 32 mmol/L LAB CHEMISTRY METHOD 01/01/2025 5:07 PM [facility] Anion Gap 10 3 - 11 LAB CHEMISTRY METHOD 01/01/2025 5:07 PM [facility] Glucose 90 70 - 100 mg/dL LAB CHEMISTRY METHOD 01/01/2025 5:07 PM [facility] BUN 10 5 - 25 mg/dL LAB CHEMISTRY METHOD 01/01/2025 5:07 PM [facility] Creatinine 0.65 0.50 - 1.10 mg/dL LAB CHEMISTRY METHOD 01/01/2025 5:07 PM [facility] eGFR 95 >=60 mL/min/1. 73m2 LAB CHEMISTRY METHOD 01/01/2025 5:07 PM [facility] Comment:Calculation based on the Chronic Kidney Disease Epidemiology Collaboration (CKD-EPI) equation refit without adjustment for race. BUN/Creatinine Ratio 15.4 LAB CHEMISTRY METHOD 01/01/2025 5:07 PM [facility] Calcium 10.3 8.5 - 10.5 mg/dL LAB CHEMISTRY METHOD 01/01/2025 5:07 PM [facility] AST (SGOT) 22 10 - 42 unit/L LAB CHEMISTRY METHOD 01/01/2025 5:07 PM [facility] ALT (SGPT) 31 10 - 60 unit/L LAB CHEMISTRY METHOD 01/01/2025 5:07 PM [facility] Alkaline Phosphatase 66 42 - 121 unit/L LAB CHEMISTRY METHOD 01/01/2025 5:07 PM [facility] Total Protein 7.9 6.0 - 8.0 g/dL LAB CHEMISTRY METHOD 01/01/2025 5:07 PM [facility] Albumin 4.6 3.2 - 5.0 g/dL LAB CHEMISTRY METHOD 01/01/2025 5:07 PM [facility] Total Bilirubin 0.4 0.0 - 1.4 mg/dL LAB CHEMISTRY METHOD 01/01/2025 5:07 PM [facility] Blood Venous blood specimen / Unknown Venipuncture / Unknown 01/01/2025 2:25 PM EDT 01/01/2025 2:25 PM EDT us Caro DAILY LAB BLOOD ORDERABLES Final Result [facility] [address] [place] [address], [place] [phone] * (ABNORMAL) Urinalysis with reflex microscopic and culture (11/14/2024 3:28 PM EDT) Specific [place] Urine 1.009 1.003 - 1.030 LAB URINALYSIS - AUTOMATED METHOD 11/14/2024 5:40 PM EDT [facility] pH, Urine 7.5 5.0 - 8.0 pH LAB URINALYSIS - AUTOMATED METHOD 11/14/2024 5:40 PM EDT [facility] Leukocytes, Urine Small(A) Negative LAB URINALYSIS - AUTOMATED METHOD [facility]24 [facility] Nitrite, Urine Negative Negative LAB URINALYSIS - AUTOMATED METHOD 11/14/2024 5:40 PM EDT [facility] Protein, Urine Negative <=Trace mg/dL LAB URINALYSIS - AUTOMATED METHOD 11/14/2024 5:[facility] Glucose, Urine Negative Negative mg/dL LAB URINALYSIS - AUTOMATED METHOD 11/14/2024 5:40 PM [facility] Ketones, Urine Negative Negative mg/dL LAB URINALYSIS - AUTOMATED METHOD 11/14/2024 5:40 PM [facility] Urobilinogen , Urine 0.2 0.2 - 1.0 mg/dL LAB URINALYSIS - AUTOMATED METHOD 11/14/2024 5:40 PM EDT [facility] Bilirubin, Urine Negative Negative LAB URINALYSIS - AUTOMATED METHOD 11/14/2024 5:[facility] Blood, Urine Negative Negative LAB URINALYSIS - AUTOMATED METHOD 11/14/2024 5:40 PM [facility] RBC, Urine 2.3 0 - 4 /HPF LAB URINALYSIS - AUTOMATED METHOD 11/14/2024 5:40 PM EDT [facility] WBC, Urine 14.4(H) 0 - 4 /HPF LAB URINALYSIS - AUTOMATED METHOD 11/14/2024 5:40 PM EDT [facility] Squamous Epithelial, Urine 8 0 - 60 /LPF LAB URINALYSIS - AUTOMATED METHOD 11/14/2024 5:40 PM EDT [facility] Bacteria, Urine Moderate(A) Negative /HPF LAB URINALYSIS - AUTOMATED METHOD 11/14/2024 5:40 PM EDT [facility] Hyaline Casts, Urine 0.0 0 - 3 /LPF LAB URINALYSIS - AUTOMATED METHOD 11/14/2024 5:40 PM EDT [facility] Urine Urine specimen obtained by clean catch procedure / Unknown Non-blood Collection / Unknown 11/14/2024 3:28 PM EDT 11/14/2024 3:28 PM EDT Belia Goodrich MD LAB URINE ORDERABL ES Final Result Performing Organization Address [facility]/ZIP Co de Phone Number [facility] [address] [place] [address], [place] [phone] * Asif urine culture tube (11/14/2024 3:28 PM EDT) Extra Tube Hold for add-ons. 11/14/2024 6:01 PM EDT [facility] Comment:Auto resulted. Urine Urine specimen obtained by clean catch procedure / Unknown Non-blood Collection / Unknown 11/14/2024 3:28 PM EDT 11/14/2024 3:28 PM EDT Belia Goodrich MD LAB URINE ORDERABL ES Final Result Performing Organization Address [facility]/ZIP Co de Phone Number [facility] [address] [place] [address], [place] [phone] * (ABNORMAL) Culture urine (11/14/2024 3:28 PM EDT) Culture, Urine >=100,000 CFU/mL Serratia marcescens(A ) FRANCIA 11/16/2024 10:38 AM EDT [facility] Comment: This is an edited result. Previous organism was Gram negative bacilli on 11/15/2024 at 0850 EDT. Urine Urine specimen obtained by clean catch procedure / Unknown Non-blood Collection / Unknown 11/14/2024 3:28 PM EDT 11/14/2024 5:40 PM EDT Narrative Organism Antibiotic Method Susceptibility Serratia marcescens Amoxicillin/Clavulanate FRANCIA >=32 ug/ml: Resistant Serratia marcescens Cefoxitin FRANCIA 16 ug/ml: Resistant Serratia marcescens Ceftazidime FRANCIA <=0.5 ug/ml: Susceptible Serratia marcescens Ceftriaxone FRANCIA <=0.25 ug/ml: Susceptible Serratia marcescens Cefepime FRANCIA <=0.12 ug/ml: Susceptible Serratia marcescens Meropenem FRANCIA <=0.25 ug/ml: Susceptible Serratia marcescens Amikacin FRANCIA 4 ug/ml: Susceptible Serratia marcescens Gentamicin FRANCIA <=1 ug/ml: Susceptible Serratia marcescens Ciprofloxacin FRANCIA 0.12 ug/ml: Susceptible Serratia marcescens Levofloxacin FRANCIA <=0.12 ug/ml: Susceptible Serratia marcescens Nitrofurantoin FRANCIA 128 ug/ml: Resistant Serratia marcescens Trimethoprim/Sulfamethoxazole FRANCIA <=20 ug/ml: Susceptible us Belia Goodrich MD LAB MICROBIOLOGY - GENERAL ORDERABLES Final Result [facility] [address] [place] [address], * EGD Anesthesia - [facility]; [facility] ENDOSCOPY (10/11/2024 4:11 PM EDT) Anatomical Region Laterality Modality Endoscopy 10/11/2024 4:04 PM EDT Impressions 10/11/2024 4:18 PM EDT - Normal mucosa was found in the entire esophagus. Biopsied. - A Rhiannon fundoplication was found. - A large amount of food (residue) in the stomach. - Normal examined duodenum. Biopsied. Recommendation: - Continue present medications. - Await pathology results. Narrative 10/11/2024 4:18 PM EDT [facility] GI Patient Name: Marni Bear Procedure Date: 10/11/2024 4:04 PM Date of : 1955 Age: 69 Gender: Female Note Status: Finalized Attending MD: Loretta Duron MD, Procedure Date No Time: 10/11/2024 Procedure: Upper GI endoscopy Indications: Odynophagia, Follow-up of celiac disease, Patient had EGD 01/[address] Nick which revelaed a large hiatal hernia. She subseqeuntly underwent Rhiannon fundoplication. Last week she had severe odynophagia. Esophagram revealed surgical changes and mild esophageal dysmotility. She was given a prescription for sucralfate and her symptoms have since resolved. Providers: Loretta Duron MD Referring MD: Loretta uDron MD, Belia Goodrich MD Medicines: Propofol per Anesthesia Complications: No immediate complications. Estimated Blood Loss: Estimated blood loss: none. Procedure: Pre-Anesthesia Assessment: - ASA Grade Assessment: III - A patient with severe systemic disease. After obtaining informed consent, the endoscope was passed under direct vision. Throughout the procedure, the patient's blood pressure, pulse, and oxygen saturations were monitored continuously.The Endoscope was introduced through the mouth, and advanced to the second part of duodenum. The upper GI endoscopy was accomplished without difficulty. The patient tolerated the procedure well. Findings: Normal mucosa was found in the entire esophagus. Biopsies were taken with a cold forceps for histology. A prior Rhiannon fundoplication was found at the gastroesophageal junction. A large amount of food (residue) was found in the entire examined stomach. The fundus of the stomach could not be visualized due to the amount of retained food. The examined duodenum was normal. Biopsies were taken with a cold forceps for histology. Procedure Code(s): --- Professional --- 83872, Esophagogastroduodenoscopy, flexible, transoral; with biopsy, single or multiple Diagnosis Code(s): --- Professional --- Z98.890, Other specified postprocedural states R13.10, Dysphagia, unspecified K90.0, Celiac disease CPT copyright 2020 [employer]. All rights reserved. The codes documented in this report are preliminary and upon money market dealer review may be revised to meet current compliance requirements. Loretta Duron MD 10/11/2024 4:17:49 PM This report has been signed electronically.Loretta Duron MD Number of Addenda: 0 Note Initiated On: 10/11/2024 4:04 PM Scope In: Scope Out: Endoscopy Department at [facility] - [address] [place] [id number] Procedure Note Loretta Duron MD - 10/11/2024 [facility] GI Patient Name: Marni Bear Procedure Date: 10/11/2024 4:04 PM Date of : 1955 Age: 69 Gender: Female Note Status: Finalized Attending MD: Loretta Duron MD, Procedure Date No Time: 10/11/2024 Procedure: Upper GI endoscopy Indications: Odynophagia, Follow-up of celiac disease, Patienthad EGD 01/[address] Nick which revelaed a large hiatal hernia. She subseqeuntly underwent Rhiannon fundoplication. Last week she had severeodynophagia. Esophagram revealed surgical changes and mild esophageal dysmotility. She was given aprescription for sucralfate and her symptoms have sinceresolved. Providers: Loretta Duron MD Referring MD: Loretta Duron MD, Belia Goodrich MD Medicines: Propofol per Anesthesia Complications: No immediate complications. Estimated Blood Loss: Estimated blood loss: none. Procedure: Pre-Anesthesia Assessment: - ASA Grade Assessment: III - A patient with severe systemic disease. After obtaining informed consent, the endoscope was passed under direct vision. Throughout theprocedure, the patient's blood pressure, pulse, and oxygen saturations were monitored continuously.TheEndoscope was introduced through the mouth, and advanced tothe second part of duodenum. The upper GI endoscopy was accomplished without difficulty. The patienttolerated the procedure well. Findings: Normal mucosa was found in the entire esophagus. Biopsies were taken with a cold forceps forhistology. A prior Rhiannon fundoplication was found at the gastroesophageal junction. A large amount of food (residue) was found in the entire examined stomach. The fundus of the stomach could not be visualized due to the amount ofretained food. The examined duodenum was normal. Biopsies weretaken with a cold forceps for histology. Procedure Code(s): --- Professional --- 38901, Esophagogastroduodenoscopy, flexible, transoral; with biopsy, single or multiple Diagnosis Code(s): --- Professional --- Z98.890, Other specified postprocedural states R13.10, Dysphagia, unspecified K90.0, Celiac disease CPT copyright 2020 [employer]. All rights reserved. The codes documented in this report are preliminary and upon money market dealer reviewmay be revised to meet current compliance requirements. Loretta Duron MD 10/11/2024 4:17:49 PM This report has been signed electronically.Loretta Duron MD Number of Addenda: 0 Note Initiated On: 10/11/2024 4:04 PM Scope In: Scope Out: Endoscopy Department at [facility] - [address] [place] [phone] IMPRESSION: - Normal mucosa was found in the entire esophagus. Biopsied. - A Rhiannon fundoplication was found. - A large amount of food (residue) in thestomach. - Normal examined duodenum. Biopsied. Recommendation: - Continue present medications. - Await pathology results. us Loretta Duron MD GI~PROCEDURE ORDERABLES Final Result * Tissue exam (10/11/2024 4:07 PM EDT) Final Diagnosis A. Small Intestine, Duodenum, biopsies: - Duodenal mucosa with preserved villi and no specific pathologic changes. - Negative for increased intraepithelial lymphocytes. B. Esophagus, biopsies: - Esophageal squamous mucosa with intraepithelial eosinophils (up to 13 eosinophils per hpf) with associated patchy acute inflammation, suggestive of reflux esophagitis. 10/13/2024 9:29 AM EDT [facility] Gross Description A. Small Intestine, Duodenum, biopsies: [...] tissue fragments may not survive processing. hs/DG 10/13/2024 9:29 AM EDT [facility] Disclaimer Unless otherwise specified, all tissue is 10% NB formalin fixed and paraffin embedded. 10/13/2024 9:29 AM EDT [facility] Tissue Esophageal structure / Unknown 10/11/2024 4:07 PM EDT 10/12/2024 6:59 AM EDT Tissue specimen (specimen) Esophageal structure / Unknown 10/11/2024 4:07 PM EDT 10/12/2024 6:59 AM EDT Loretta Duron MD LAB PATHOLOGY ORDERABLES Final Result [facility] [address] [place] [address], * (ABNORMAL) Lipid panel (09/20/2023) LDL/HDL Ratio [...] on the World Health Organization criteria, Marni Bear should be classified as having normal bone density. The [facility] Department of Internal Medicine recommends [...] on the World Health Organization criteria, Marni Bear shouldbe classified as having normal bone density. The [facility] Department of Internal Medicine recommendsusing [...] of fracture risk by [facility]. 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
--- OUTSIDE RECORDS SUMMARY | 2025-01-10 10:51 | XMS_ITS | Clinical Summary ---
Author Organization [facility] Address [address] [place] [address] Care Team Providers Care It Specialist Name Role Phone Urvashi Paredes NP Primary Care Provider [phone] Allergies Active Allergy Reactions Criticality Noted Date [...] age to complete this topic Care Teams It Specialist Relationship Specialty Start Date End Date Urvashi Paredes, HR MANAGER [address] [place] [address] PCP - General Nurse Practitioner 08/10/20
--- OUTSIDE RECORDS SUMMARY | 2025-01-10 10:51 | XMS_ITS | Patient Health Record ---
Author Organization [facility] Address [address] [facility] [address] [place] [address] Care Team Providers Care Sock Folder Name Role Phone SHANIQUA FERNANDEZ MD Primary Care Provider Unavail able Heena Brasher Unavailable [phone] Reason For Referral No Information Medications Medication [...]
--- OUTSIDE RECORDS SUMMARY | 2025-01-10 10:51 | XMS_ITS | Encounter Summary ---
Author Organization [facility] [place] [address] Care Team Providers Care Leadership Recruiter Name Role Phone Belia Villavicencio MD Primary Care Prov ider Reason for Referral * Consultation (Routine) - Closed Specialty Diagnoses / Procedures Referred By Moon hendrickson Referred To Contact Nephrology Diagnoses Hyponatremia Caro Vallecillo PA [address] [place], [place] Phone: tel: fax: Matt Stone, DO [address] [facility] [address] [place] [address] fax: Referral ID Status Reason Start Date Expiration Date V isits Requested Visits Authorized [id number] Closed Specialty Services Required 01/02/2025 01/02/2026 1 1 Encounter Details Date Type Department Care Team (Late st Contact Info) Description 01/02/2025 Results Follow-Up Adult Medicine - [place] [address] [place] [address] Caro Vallecillo PA [address] [place], [place] Social History Tobacco Use Types Packs/Day Years [...] your loved ones. For example, child nutrition manager or elderly care for an older [...] on file documented as of this encounter Functional Status * Are you [...] Lex Ramos RN documented in this encounter Plan of Treatment Upcoming Encounters Date Type Department Care Team (Late st Contact Info) Description 01/29/2025 1:00 PM EST Office Visit Adult Medicine - [place] [address] [place] [phone] Caro Vallecillo PA [address] [place] [address] 02/14/2025 8:00 AM EST Appointment [facility] Nuclear Medicine [address] [place] [phone] 05/31/2025 9:10 AM EDT Office Visit [facility] - [facility] [address] [facility] [address] [place] [phone] Peyton Castillo NP [address] [place] [address] [place] [address] 08/20/2025 1:00 PM EDT Office Visit Gastroenterology - [address] [facility] [address] [place] [address] Silvia Mcfarlane PA [address] [facility] [address] [place] [address] Scheduled Referrals Name Type Priority Associated Diagnoses Order Schedule Ambulatory referral to Nephrology Outpatient Referral Routine Hyponatremia 1 Occurrences starting 01/02/2025 until 01/02/2026 documented as of this encounter Visit Diagnoses Diagnosis Hyponatremia- Primary Hyposmolality and/or hyponatremia documented in this encounter Additional Health Concerns Assessment Noted Time PHQ-9 Depression Total Score: 0 03/27/19 25 4:47 PM EST documented as of this encounter Care Teams Leadership Recruiter Relationship Specialty Start Date End Date Belia Villavicencio MD [address] [place] [address] PCP - General Internal Medicine 01/17/24 documented as of this encounter
--- OUTSIDE RECORDS SUMMARY | 2025-01-10 10:51 | XMS_ITS | Encounter Summary ---
Author Organization [facility] Address [address] [place] [address] Care Team Providers Care Belt Operator Name Role Phone Belia Villavicencio MD Primary Care Prov ider Encounter Details Date Type Department Care Team ([facility] st Contact Info) Description 01/08/2025 Telephone Gastroenterology - [address] [facility] [address] [place] [phone] Silvia Mcfarlane PA 299 [facility] [address] [place] [address] Social History Tobacco Use Types Packs/Day Years [...] care for your loved ones. For example, school childcare attendant or elderly care for an older [...] Lex Ramos RN documented in this encounter Ordered Prescriptions Prescription Sig Dispense Quantity Refills Last Filled Start Date End Date famotidine (Pepcid) 20 mg tablet Take 1 tablet (20 mg total) by mouth 1 (one) time each day. 90 each 1 01/09/2025 07/08/2025 documented in this encounter Progress Notes * Ara Workman MA - 01/09/2025 12:00 PM EST Patient informed. She has famotidine 20mg tablets at home. She will plan to take that daily. Refill pended to you. * ABIMBOLA Butler - 01/09/2025 9:59 AM EST We can try generic Pepcid/famotidine. Please let me know... * Estefania Carbajal MA - 01/09/2025 9:10 AM EST Spoke with PT she did say she does not take this on a daily basis as she does not feel any acid bothering her at the moment she has been on and off for about 25 years with the Omeprazole and would rather not take this medication as it should not be superintendent container terminal she is concerned with the issues that can occur being on this superintendent container terminal and would like to know if there is a alternative please advise * ABIMBOLA Butler - 01/08/2025 5:38 PM EST I saw patient today, I forgot to ask her if she is taking omeprazole, as her biopsy of the esophagus showed reflux esophagitis. Pt should take omeprazole to protect her esophagus from acid reflux. Ifshe is not taking omeprazole, I will prescribe her. Please let me know, TY documented in this encounter Plan of Treatment Upcoming Encounters Date Type Department Care Team (Late st Contact Info) Description 01/29/2025 1:00 PM EST Office Visit Adult Medicine - [place] [address] [place] [address] Caro Vallecillo PA [address] [place] [address] 02/14/2025 8:00 AM EST Appointment [facility] Nuclear Medicine [address] [place] [phone] 05/31/2025 9:10 AM EDT Office Visit [facility] - [facility] 102 [address] [facility] [address] [place] [phone] Peyton Castillo NP [address] [place] [address] [place] [address] 08/20/2025 1:00 PM EDT Office Visit Gastroenterology - [address] [facility] [address] [place] [address] Silvia Mcfarlane PA [address] [place] [address] documented as of this encounter Visit Diagnoses Not on filedocumented in this encounter Additional Health Concerns Assessment Noted Time PHQ-9 Depression Total Score: 0 03/27/19 25 4:47 PM EST documented as of this encounter Care Teams Belt Operator Relationship Specialty Start Date End Date Belia Villavicencio MD [address] [place] [address] PCP - General Internal Medicine 01/17/24 documented as of this encounter
--- OUTSIDE RECORDS SUMMARY | 2025-01-10 10:51 | XMS_ITS | Clinical Summary ---
Author Organization [facility] Address [address] [place] [phone] Phone Care Team Providers Care Radiotelephone Operator Name Role Phone Belia Villavicencio MD Primary Care Pr ovider Social History Tobacco Use Types Packs/Day Years Used Date Smoking Tobacco: Never Assessed Comments Unknown Sex and Gender Information Value Date Recorded Sex Assigned at Not on file Legal Sex Female 1:27 PM EDT Gender Identity Not on file Sexual Orientation Not on file Plan of Treatment Upcoming Encounters Date Type Department Care Team (Late st Contact Info) Description 02/19/2025 11:30 AM EST Office Visit [facility] [address] [phone] Zain Lynch MD [address] [address] Health Maintenance Due Date Last Done Comments Breast Cancer Screening 1955 Pneumococcal Vaccine: 50+ Ye ars (1 of 2 - PCV) 07/22/1974 Colorectal Cancer Screening: Annual FOBT 07/22/2004 Colorectal Cancer Screening: Colonoscopy 07/22/2004 Colorectal Cancer Screening: Sigmoidoscopy 07/22/2004 Hepatitis B Vaccine (1 of 3 - Risk 3-dose series) 2015 Influenza Vaccine (#1) 2024 , 01/28/2021, 04/04/2020 Insurance Medicaid [place] Care Teams Radiotelephone Operator Relationship Specialty Start Date End Date Belia Villavicencio MD [address] [place] [address] PCP - General Internal Medicine 01/03/25
--- OUTSIDE RECORDS SUMMARY | 2025-01-10 10:51 | XMS_ITS | Encounter Summary ---
Author Organization [facility] Address [address] [place] [address] Care Team Providers Care Weapons Mechanic Name Role Phone Belia Villavicencio MD Primary Care Prov ider Reason for Visit * Reason Onset Date Comments Fitting for DME 01/02/2025 CPAP Encounter Details Date Type Department Care Team ([facility] st Contact Info) Description 01/02/2025 Telephone Adult Medicine [facility] [address] [place] [phone] Niyah Burk MA Social History Tobacco Use Types Packs/Day [...] of Assessment Author No 10/03/2024 10:44 AM EDT Lex Borges RN * Are you blind or do you have serious difficulty seeing, even when wearing glasses? Answer Date of Assessment Author No 10/03/2024 10:44 AM EDT Lex Borges RN * Do you have serious difficulty walking or climbing stairs? Answer Date of Assessment Author No 10/03/2024 10:44 AM EDT Lex Borges RN * Do you have serious difficulty dressing or bathing? Answer Date of Assessment Author No 10/03/2024 10:44 AM EDT Lex Borges RN * Because of a physical, mental, or emotional condition, do you have serious difficulty doing errandsalone such as visiting the doctor? Answer Date of Assessment Author No 10/03/2024 10:44 AM EDT Lex Borges RN documented as of this encounter Mental Status * Because of a physical, mental, or emotional condition, do you have serious difficulty concentrating, remembering, or making decisions? (5 years old or older) Answer Entry Date Author No 10/03/2024 10:44 AM EDT Lex Borges RN documented in this encounter Progress Notes * Pelon Arias MA - 01/10/2025 10:07 AM EST Durable medical equipment prescription request has been faxed to the [employer] : [facility] [facility] from 09.29.24 reprinted and faxed with 01.01.25 office notes With cover sheet, demographics and kuldip notes Confirmation was received * Niyah Burk MA - 01/02/2025 10:00 AM EDT Provider advised patient completed office visit needs CPAP machine script sent to [facility]. documented in this encounter Plan of Treatment Upcoming Encounters Date Type Department Care Team (Late st Contact Info) Description 01/29/2025 1:00 PM EST Office Visit Adult Medicine - [place] [address] [place] [phone] Caro Vallecillo PA [address] [place] [address] 02/14/2025 8:00 AM EST Appointment [facility] Nuclear Medicine [address] [place] [phone] 05/31/2025 9:10 AM EDT Office Visit [facility] - [facility] [address] [facility] [address] [place] [phone] Peyton Castillo NP [address] [place] [address] [place] [phone] 08/20/2025 1:00 PM EDT Office Visit Gastroenterology - [address] [facility] [address] [place] [address] Silvia Mcfarlane PA [address] [facility] [address] [place] [address] documented as of this encounter Visit Diagnoses Not on filedocumented in this encounter Additional Health Concerns Assessment Noted Time PHQ-9 Depression Total Score: 0 03/27/19 25 4:47 PM EST documented as of this encounter Care Teams Weapons Mechanic Relationship Specialty Start Date End Date Belia Villavicencio MD [address] [place] [address] PCP - General Internal Medicine 01/17/24 documented as of this encounter
[2025-01-10 13:33] LABS: MANUAL DIFF FLAG NO
[2025-01-10 13:44] LABS: Hematocrit 36.5 % (37.0-47.0); Hemoglobin 12.1 g/dl (12.0-16.0); Imm Gran Abs Auto 0.04 X10*3/uL (0.00-0.03); Imm Gran Pct Auto 0.5 % (0.0-0.4); Lymphocytes Absolute Auto 3.0 X10*3/uL (1.2-4.9); Mean Corpuscular HGB Conc 33.2 g/dl (31.0-35.0); Mean Corpuscular Hemoglobin 26.8 pg (27.0-33.0); Mean Corpuscular Volume 80.9 fL (80.0-98.0); NRBC Abs Auto 0.000 X10*3/uL (0.0-0.012); NRBC Pct Auto 0.0 /100WBC (0.0-0.2); Platelet Count 418 X10*3/uL (160-400); Red Blood Count 4.51 X10*6/uL (4.20-5.50); White Blood Count 8.2 X10*3/uL (4.8-10.8)
[2025-01-10 14:06] LABS: Alanine Aminotransferase 19 U/L (0-31); Albumin Level 4.8 g/dL (3.5-5.0); Alkaline Phosphatase 60 U/L (39-117); Anion Gap 12 (12-20); Aspartate Amino Transferase 22 U/L (5-31); Blood Urea Nitrogen 10 mg/dL (9-16); Calcium 9.5 mg/dL (8.4-10.2); Carbon Dioxide 25 mmol/L (22-29); Chloride 96 mmol/L (96-108); Estimated Glomerular Filt Rate > 60; Potassium 5.2 mmol/L (3.3-5.1); Sodium 128 mmol/L (135-145); Total Protein 7.4 g/dL (6.5-8.0)
== END 2025-01-10 09:41 | disposition home or self-care (01) ==
LOC: HO.HKASLDS 09:40
PROVIDERS: PCP Internal Medicine; Visit Provider Student in an Organized Health Care Education/Training Program
DX: Z79.899 Other long term (current) drug therapy (principal)
CPT/HCPCS: 36415; 80053; 85025; 85652; 86140

== ENCOUNTER 2025-01-16 09:15 | Outpatient (AMB) | payer OTHER, SELFPAY ==
--- OUTSIDE RECORDS SUMMARY | 2025-01-11 10:20 | XMS_ITS | Encounter Summary ---
Author Organization [facility] [place] [address] Care Team Providers Care Director Of Vocational Training Name Role Phone Belia Villavicencio MD Primary Care Prov ider Encounter Details Date Type Department Care Team (Late st Contact Info) Description 01/11/2025 10:20 AM EST Lab Draw Station - [address] [address] Epigastric pain; Nausea and vomiting, unspecified vomiting type; Diarrhea, unspecified type; Small intestinal bacterial overgrowth, unspecified Social History Tobacco Use Types Packs/Day Years Used Date Smoking Tobacco: Former Cigarettes 0 Q uit: 1998 Smokeless Tobacco: Never Comments:QUIT [...] for your loved ones. For example, children's lunchroom supervisor or elderly care for an older adult? [...] of Assessment Author No 10/03/2024 10:44 AM TAMIT Lex Borges RN * Do you have [...] 1:00 PM EST Office Visit Adult Medicine [facility] [address] [place] [address] Caro Vallecillo PA [address] [place] [address] 02/14/2025 8:00 AM EST Appointment [facility] Nuclear Medicine [address] [place] [phone] 05/31/2025 9:10 AM EDT Office Visit [facility] [address] [facility] [address] [place] [phone] Peyton Castillo NP [address] [place] [address] [place] [address] 08/20/2025 1:00 PM EDT Office Visit Gastroenterology - [address] [facility] [address] [place] [address] Silvia Mcfarlane PA [address] [facility] [address] [place] [address] documented as of this encounter Procedures Procedure Name Priority Date/Time Associated Diagnosis Comments GASTROINTESTINAL PATHOGENS BY PCR Routine 01/11/2025 10:22 AM EST Epigastric pain Nausea and vomiting, unspecified vomiting type Diarrhea, unspecified type Small intestinal bacterial overgrowth, unspecified PANCREATIC ELASTASE 1 Routine 01/11/2025 10:22 AM EST Epigastric pain Nausea and vomiting, unspecified vomiting type Diarrhea, unspecified type CALPROTECTIN, STOOL Routine 01/11/2025 1 0:22 AM EST Epigastric pain Nausea and vomiting, unspecified vomiting type Diarrhea, unspecified type documented in this encounter Results * Pancreatic elastase 1 (01/11/2025 10:22 AM EST) Pancreatic Elastase 1 215.0 >200 mcg/g 01/15/2025 2:41 PM EST [facility] Comment: Adult and Pediatric Referance Ranges for Pancreatic Elastase-1: Normal: >200 mcg/g Moderate Pancreatic Insufficiency: 100-200 mcg/g Severe Pancreatic Insufficiency: <100 mcg/g Test performed at [facility], [address] , [place] [address] Jessenia Rosen MD, PhD - [employer] Stool Rectum structure / Unknown Non-blood Collection / Unknown 01/11/2025 10:22 AM EST 01/11/2025 10:22 AM EST [facility] BODY FLUIDS AND STOOLS OR DERABLES Final Result [facility] [address] [place] [address] * Gastrointestinal pathogens molecular study (01/11/2025 10:22 AM EST) Campylobacter Detection by PCR Not Detected Not Detected LAB MICROBIOLOGY METHOD 5 2:32 PM [facility] Plesiomonas shigelloides Detection by PCR Not Detected Not Detected LAB MICROBIOLOGY METHOD 5 2:32 PM EST [facility] Salmonella Detection by PCR Not Detected Not Detected LAB MICROBIOLOGY METHOD 5 2:32 PM [facility] Vibrio Detection by PCR Not Detected Not Detected LAB MICROBIOLOGY METHOD 5 2:32 PM [facility] Vibrio cholerae Detection by PCR Not Detected Not Detected LAB MICROBIOLOGY METHOD 5 2:32 PM [facility] Yersinia enterocolitica Detection by PCR Not Detected Not Detected LAB MICROBIOLOGY METHOD 5 2:32 PM [facility] Enteroaggregative E coli EAEC Detection by PCR Not Detected Not Detected LAB MICROBIOLOGY METHOD 5 2:32 PM [facility] Enteropathogenic E coli EPEC Detection Not Detected Not Detected LAB MICROBIOLOGY METHOD 5 2:32 PM [facility] Enterotoxigenic E coli ETEC LTST Detection Not Detected Not Detected LAB MICROBIOLOGY METHOD 5 2:32 PM [facility] Shiga-like toxin producing E coli STEC STX1 STX2 Det Not Detected Not Detected LAB MICROBIOLOGY METHOD 5 2:32 PM [facility] Shigella Enteroinvasive E coli EIEC Detection Not Detected Not Detected LAB MICROBIOLOGY METHOD 5 2:32 PM [facility] Cryptosporidium Detection by PCR Not Detected Not Detected LAB MICROBIOLOGY METHOD 5 2:32 PM [facility] Cyclospora cayetanensis Detection by PCR Not Detected Not Detected LAB MICROBIOLOGY METHOD 5 2:32 PM EST [facility] Entamoeba histolytica Detection by PCR Not Detected Not Detected LAB MICROBIOLOGY METHOD 5 2:32 PM EST [facility] Giardia lamblia Detection by PCR Not Detected Not Detected LAB MICROBIOLOGY METHOD 5 2:32 PM [facility] Adenovirus F 40 41 Detection by PCR Not Detected Not Detected LAB MICROBIOLOGY METHOD 5 2:32 PM EST [facility] Astrovirus Detection by PCR Not Detected Not Detected LAB MICROBIOLOGY METHOD 5 2:32 PM [facility] Norovirus GI GII Detection by PCR Not Detected Not Detected LAB MICROBIOLOGY METHOD 5 2:32 PM [facility] Sapovirus Detection by PCR Not Detected Not Detected LAB MICROBIOLOGY METHOD 5 2:32 PM [facility] Rotavirus A Detection by PCR Not Detected Not Detected LAB MICROBIOLOGY METHOD 5 2:32 PM [facility] Stool Rectum structure / Unknown Non-blood Collection / Unknown 01/11/2025 10:22 AM EST 01/11/2025 10:22 AM EST [facility] - 01/11/2025 2:32 PM EST PCR testing is much more sensitive than traditional techniques and allows for the detection of low numbers of stool pathogens. The clinical correlation of PCR results with the need for treatment and clinical outcomes has not been established. Therefore the results of PCR testing for stool pathogens must be taken into clinical context when making treatment decisions. This is a diagnostic test only, repeat testing for cure is not advised. You may consider infectious disease consult for additional guidance. Testing Performed by [facility] us [facility] DAILY LAB MICROBIOLOGY - GENERAL OR DERABLES Final Result [facility] [address] [place] [address], [place] [phone] * Calprotectin, stool (01/11/2025 10:22 AM EST) Calprotectin, Fecal 26.9 <50 mcg/g 01/15/2025 2:41 PM EST [facility] Comment: <50 mcg/g Normal 50 - 120 mcg/g Borderline >120 mcg/g Abnormal Borderline results suggest repeat testing in 4 to 6 weeks. Test performed at [facility], [address] , [place] [address] Jessenia Rosen MD, PhD - [employer] Stool Rectum structure / Unknown Non-blood Collection / Unknown 01/11/2025 10:22 AM EST 01/11/2025 10:22 AM EST [facility] DAILY [facility] BODY FLUIDS AND STOOLS OR DERABLES Final Result [facility] [address] [place] [address] documented in this encounter Visit Diagnoses Diagnosis Epigastric pain Abdominal pain, epigastric Nausea and vomiting, unspecified vomiting type Diarrhea, unspecified type Small intestinal bacterial overgrowth, unspecified documented in this encounter Additional Health Concerns Infection Onset Date Last Indicated Resolved Time Gastrointestinal Rule-Out 01/11/2025 01/11/2025 2:32 PM EST C. difficile Rule-Out 01/11/2025 01/11/20252024 1:49 PM EST Assessment Noted Time PHQ-9 Depression Total Score: 0 03/27/19 4:47 PM EST documented as of this encounter Care Teams Director Of Vocational Training Relationship Specialty Start Date End Date Belia Villavicencio MD [facility] [place] [address] PCP - General Internal Medicine 01/17/24 documented as of this encounter
--- NOTE | 2025-01-16 09:56 | A.OFFVIS_ITS ---
Vital Signs 01/16/25 10:00 Height 5 ft 2.5 in Weight 163 lb 9.328 oz BMI 29.4 BP 130/78 Blood Pressure Location Lt brachial Position Sitting Pulse 69 Pulse Source Pulse Oximeter Pulse Oximetry (%) 99 Oxygen Delivery Method Room Air Intake Visit Reasons: hip injection Intake Note: Patient presents for left sided hip injection. 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 Accompanied by: Self / Same As Patient Allergies hydralazine Allergy (Severe, Verified 01/16/25 10:03) Shortness of Breath Sulfa (Sulfonamide Antibiotics) Allergy (Intermediate, Verified 01/16/25 10:03) Rash sulfamethoxazole (From Bactrim) Allergy (Intermediate, Verified 01/16/25 10:03) Rash trimethoprim (From Bactrim) Allergy (Intermediate, Verified 01/16/25 10:03) Rash rosuvastatin Adverse Reaction (Severe, Verified 01/16/25 10:03) Joint Pain Medication List - Last Reconciled 01/16/25 by Jina Braden MD atenolol 25 mg PO DAILY cetirizine 10 mg PO BEDTIME clonazepam 0.5 mg PO TID PRN CPAP As directed dicyclomine 10 mg PO QID PRN folic acid 1 mg PO DAILY levothyroxine 100 mcg PO DAILY lisinopril 5 mg PO DAILY methotrexate sodium 15 mg (6 x 2.5 mg) PO QWEEK 90 days prednisone 3 mg (3 x 1 mg) PO DAILY spironolactone 50 mg PO DAILY HPI Comments Details: Patient is a 69 y.o. female with celiac disease, Crohn's disease, hypertension, hypothyroidism, history of PMR and non biopsy-proven GCA here today for follow up Interval History: Patient last seen 10/11/24 with me - On methotrexate 15mg weekly and prednisone 7mg - doing well - No headaches - No visual changes - currently being evaluated for GI upset. On dicyclomine with improvement - Plan to continue prednisone taper Today - On methotrexate 15mg weekly and prednisone 3mg - Urgent visit - Progressing over months, she is experiencing more fatigue, joint pain, especially left hip, back pain below rib cage - Labs reviewed and they were normal, here today for assessment of complaints Rheumatologic History: PMR onset around 10/2022 elevated ESR and CRP. ++DAREN Tapered off prednisone 12/2023 GCA Contacted the office 04/2024 with intractable occipital headache and inflammatory markers elevated Started on prednisone TA biopsy negative 04/2024 PET scan negative 06/2024 Current Rheumatology Medication(s): Prednisone 3mg PO daily Methotrexate 15mg weekly Folic acid 1mg PFSH Medical History (Updated 05/11/24 @ 11:06 by Jina Braden MD) Celiac disease Arrhythmia TIA (transient ischemic attack) Palpitations halfway (current) use of systemic steroids Paresthesias Vertigo HTN (hypertension) Arthritis Anemia Hypothyroidism Vertigo Anxiety Back pain Surgical History Hx of cholecystectomy H/O: hysterectomy Giant cell arteritis H/O esophageal hernia repair Family History Brother Liver disease Cancer Sister Stroke Diabetes Sister Cancer Rheumatoid arthritis Sister Vitiligo Rheumatoid arthritis Daughter Vitiligo Social History Household Members: Spouse Housing: House Are you a primary director of medicare to a significant other at home: No Do you presently have visiting nurse or other home services: No 75 years or older and lives alone: No Alcohol intake: former Patient Tobacco Use Status: Former Tobacco user Years Smoked: Quit 25 years ago e-Cigarette/Vaping Use: Never Used service: No Current occupational status: retired Review of Systems Narrative Review of Systems Constitutional: Denies fever, chills, weight loss ENT: Denies vision changes, eye pain or eye redness, dental caries, dry mouth GI: Denies nausea, vomiting, diarrhea, abdominal pain, change in BM Pulm: Denies SOB, , hemoptysis, wheezing Cards: Denies chest pain, palpitations Skin: Denies Raynaud's, rash, nail changes, photosensitivity, QUARTZ CUTTER: Denies headaches, weakness, paresthesias, recurrent falls MSK: as per HPI All other systems reviewed and are unremarkable except noted above Physical Exam Exam Exam: Vital signs reviewed Physical Examination CONSTITUITIONAL Patient alert and cooperative. Well appearing and in no apparent painful distress MSK Hands * Right Hand: Able to make a fist. No swelling or tenderness to palpation of these joints. * Left Hand: Able to make a fist. No swelling or tenderness to palpation of these joints. * Herbedens nodes noted bilaterally Wrists * Right Wrist: Full ROM. 70 degrees of wrist flexion, 80 degrees of wrist extension. No swelling or TTP * Left Wrist: Full ROM. 70 degrees of wrist flexion, 80 degrees of wrist extension. No swelling or TTP Elbows * Right Elbow: Full ROM. No swelling or TTP. No TTP of the medial and lateral epicondyles * Left Elbow: Full ROM. No swelling or TTP. No TTP of the medial and lateral epicondyles Shoulders * Right shoulder: Full ROM. No swelling noted. No TTP of the AC joint, subacromial bursa or posterior shoulder * Left shoulder: Full ROM. No swelling noted. No TTP of the AC joint, subacromial bursa or posterior shoulder Hips * Right hip: Good ROM. No pain elicited with hip flexion/internal rotation/external rotation * Left hip: Good ROM. No pain elicited with hip flexion/internal rotation/external rotation Hip bursa: TTP left hip bursa Knees * Right knee: Full ROM. No swelling noted. No TTP of the knee joint lie or pes anserine bursa * Left knee: Full ROM. No swelling noted. No TTP of the knee joint lie or pes anserine bursa. * Crepitations felt bilaterally Ankles * Right ankle: Good ankle dorsiflexion and plantar flexion. No swelling. No TTP of the ankle joint * Left ankle: Good ankle dorsiflexion and plantar flexion. No swelling. No TTP of the ankle joint Feet * Right foot: Negative squeeze test * Left foot: Negative squeeze test Tender points? * No tenderness to palpation of the bilateral trapezius, supraspinatus, anterior costochondral junctions, bilateral suboccipital muscle insertions SKIN No rashes Vital Signs: Last Vital Signs Pulse 69 01/16/25 10:00 BP 130/78 01/16/25 10:00 Pulse Ox 99 01/16/25 10:00 Oxygen Delivery Method Room Air 01/16/25 10:00 BMI result Body Mass Index 29.4 Office Procedures AMB Joint Injection/Aspiration Joint Injection/Aspiration Details: Procedure was explained to the patient and informed consent was obtained. ? Risks associated with the procedure were discussed with the patient including but not limited to bleeding, infection, drug reactions and reactions to the top ical anesthetic. Patient made aware of signs to look out for infectious complications. The area of interest was identified and confirmed with patient. ?This was subsequently cleaned with chlorhexidine x 2. ? The area was then anesthetized using ethyl chloride spray. 40 mg Kenalog with 1 cc 1% lidocaine was injected without issue. ?Minimal to no bleeding. ?Patient tolerated procedure. Primary Site: other (left trochanteric bursa) Prep: site was prepped using aseptic technique and ethochloride spray was applied Injected: 40 mg of, Kenalog, with 1 mL of and 1% plain lidocaine Procedure: The patient tolerated the procedure well Coding 23194 - Glenohumeral/Tronchanteric Bursa/Intraarticular Procedure code (CPT) selection complete Office Meds lidocaine (PF) 10 mg/mL (1 %) injection solution Performing Provider: Jina Braden MD Performing Location: [facility] Administered by: Diandra Alberto RN on 01/16/25 10:36 Dose Route Admin Location Dispensed Lot Number Expiration Date [facility] Procurement Representative 1 mL Infiltration left hip 2 mL [id number] 06/05/26 43427-462-98 [employer] Total Dispensed Waste 2 mL 50 % Kenalog 40 mg/mL suspension for injection Performing Provider: Jina Braden MD Performing Location: [facility] Administered by: Diandra Alberto RN on 01/16/25 10:36 Dose Route Admin Location Dispensed Lot Number Expiration Date [facility] Procurement Representative 40 mg intrabursal left hip 1 mL [id number] 09/04/26 [address]-1 CAROLINE MÉNDEZ MORENITAEN Total Dispensed Waste 1 mL 0 % Results Reviewed Results Reviewed: Laboratory Tests 10/09/24 01/10/25 09:47 09:50 WBC 8.2 RBC 4.51 Hgb 12.1 Hct 36.5 L Plt Count 418 H ESR 11 Sodium 128 L Potassium 5.2 H Chloride 96 Carbon Dioxide 25 BUN 10 Creatinine 0.70 AST 22 ALT 19 Alkaline Phosphatase 60 C-Reactive Protein 0.70 H 0.19 Assessment & Plan Assessment & Plan (1) Giant cell arteritis: Comment: 04/2024. Occipital headache associated with elevated inflammatory markers TA biopsy negative PET 06/2024 also negative Code(s): M31.6 - Other giant cell arteritis Category: Surgical Plan: #GCA Patient is a 69-year-old female with presumed non biopsy-proven GCA here today for follow up. Currently in remission with no signs or symptoms of active GCA. No signs or symptoms of active PMR. She had a negative PET scan and a negative biopsy. Unable to do Actemra due to history of diverticulitis. Currently on methotrexate and tolerating well. Plan - continue to decrease prednisone by 1 mg every month - Methotrexate 15mg weekly - Folic acid 1 mg daily - RTC 3 months - labs before visit: CBC, CMP, ESR, CRP (2) Polymyalgia rheumatica: Comment: onset around 10/2022 elevated ESR and CRP. ++DAREN Prednisone tapered off 12/2023 Code(s): M35.3 - Polymyalgia rheumatica Category: Surgical Plan: #PMR Patient with history of PMR currently in remission. (3) Trochanteric bursitis, left hip: Code(s): M70.62 - Trochanteric bursitis, left hip Plan: #Left trochanteric bursitis Patient with left trochanteric bursitis status post steroid injection today (4) Encounter for methotrexate monitoring: Code(s): Z51.81 - Encounter for therapeutic drug level monitoring; Z79.631 - halfway (c urrent) use of antimetabolite agent Plan: #Long-term Current Use of Methotrexate Discussed with patient the benefits and risks of methotrexate for managing their rheumatic condition Benefits include reduced pain, reduced mortality, maintenance of remission and reduction of flares Risks include oral ulcers, photosensitivity, hepatotoxicity, hematologic toxicity, pneumonitis, flu-like symptoms (especially day after administration), nodulosis, lymphomas ? Limit alcohol and avoid Bactrim ? 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: Code(s): Z79.52 - superintendent container terminal (current) use of systemic steroids Category: Medical Plan: #Long-term Use of Steroids Discussed with patient the risks and benefits of steroid for managing the rheumatic condition Benefits include: - Reduced pain, improved mobility, increased participation in activities, and decreased progression of disease Risks include: - GI upset, potential ultrasound worsening or formation (especially in patients > 65 years old), elevated blood pressure/worsening hypertension, elevated blood sugar/worsening diabetes control, worsening of bone density, elevated lipids/worsening triglycerides, cataract formation, weight gain Recommended using proton pump inhibitors (PPIs) for the duration of steroid use to reduce the risk of gastric ulcers and vitamin-D daily to reduce the risk of osteoporosis Labs checked: ?A1c, T spot, hepatitis-B and C serologies Pneumocystis jiroveci prophylaxis: ?Patient with risk factors including steroids greater than 50 mg for more than 30 days, age greater than 60 years, and lung involvement from underlying rheumatic disease requires prophylaxis and will be given so Plan Urgent visit. I spent 40 minutes reviewing the record and labs, taking a history, examining the patient, discussing the treatment plan, answering questions and documenting in the medical record Orders: Orders AMB Joint Injection/Aspiration Today M70.62 - Trochanteric bursitis, left hip Medications: Changed From prednisone Take 2 mg (2 tabs) in the morning and then take 2mg (2 tabs) in the evening for a total of 4 mg daily 4 mg (4 x 1 mg) PO DAILY 180 tabs 0RF M35.3 - Polymyalgia rheumatica To prednisone Take 2 mg (2 tabs) in the morning and then take 1mg (1 tabs) in the evening for a total of 3 mg daily for 30 days then Take 1 mg (1 tabs) in the morning and then take 1mg (1 tabs) in the evening for a total of 2 mg daily for 30 days then Take 1 mg (1 tabs) in the morning for a total of 3 mg daily for 30 days then stop 3 mg (3 x 1 mg) PO DAILY 180 tabs 0RF M35.3 - Polymyalgia rheumatica Refilled folic acid 1 mg PO DAILY 90 tabs 1RF M31.6 - Other giant cell arteritis Coding Level of Care Code Est Pt Level 5 (88516) Complex EM visit Add On G2211 Diagnoses Giant cell arteritis M31.6 Polymyalgia rheumatica M35.3 Trochanteric bursitis, left hip M70.62 Encounter for methotrexate monitoring Z51.81; Z79.631 halfway (current) use of systemic steroids Z79.52 CPT Codes Coding - Joint 7: 50818 - Glenohumeral/Tronchanteric Bursa/Intraarticular ([id number])
[2025-01-16 10:00] VITALS: BP 130/78; PULSE 69; O2SAT 99; BMI 29.4
--- OUTSIDE RECORDS SUMMARY | 2025-01-16 10:02 | XMS_ITS | Patient Health Record ---
Author Organization [facility] Address 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
--- OUTSIDE RECORDS SUMMARY | 2025-01-16 10:02 | XMS_ITS | Clinical Summary ---
Author Organization [facility] Address [address] [place] [address] Phone Care Team Providers Care Terminal Operations Supervisor Name Role Phone Belia Villavicencio MD Primary Care Prov ider Allergies Active Allergy Reactions Criticality Noted Date Comments Gluten Itching,GI intolerance 01/03/2024 Hydralazine Cardiac Issue High 02/16/2024 Severe chest pain Erczpkb-Hch-Nbg Reductase Inhibitors Muscular Issues High 01/08/2023 Sulfa [...] 1.5 MG 90 tablet 2 5 Active famotidine (Pepcid) 20 mg tablet Take 1 tablet (20 mg total) by mouth 1 (one) time each day. 90 each 1 5 07/09/19 26 Active ondansetron (ZOFRAN) 4 mg tablet Take 1 tablet (4 mg total) by mouth 3 (three) times a day. 20 tablet 5 01/16/20 25 Active Problems Problem Noted Date Diagnosed Date Large vessel vasculitis ([facility] V24, [facility] V2 8) 01/01/2025 PMR (polymyalgia rheumatica) ([facility] V24) 01/01 Celiac disease 03/28/2024 GERD (gastroesophageal [...] Giant cell arteritis with po lymyalgia rheumatica ([facility] V24, [facility] V28) 12/29/2022 Overview (01/11/2024): 12/28 - engaged with Dr. Reeves of rheumatology at [facility] 03/30/2022 Positive DAREN (antinuclear antibody) 06/18/2021 Obesity (BMI 30.0-34.9) 06/17/2021 Obstructive sleep apnea 06/17/2021 Overview (01/11/2024): Using CPAP (June 2021) Lumbago 10/29/2009 Radiculitis, lumbosacral 10/29/2009 Anemia 10/04/2009 Rheumatoid arthritis ([facility] V24, [facility] V28) 10/04/2009 Hypercholesteremia 10/04/2009 Assessment & Plan [...] Encounters Date Type Department Care Team Description 01/14/2025 Results Follow-Up Gastroenterology - [address] [place] [phone] Silvia Mcfarlane PA 01/11/2025 10:20 AM EST Lab Draw Station - [address] [phone] Epigastric pain; Nausea and vomiting, unspecified vomiting type; Diarrhea, unspecified type; Small intestinal bacterial overgrowth, unspecified 01/08/2025 1:40 PM EST Office Visit Gastroenterology - [address] [place] [phone] Silvia Mcfarlane PA Celiac disease (Primary Dx); Irritable bowel syndrome with diarrhea; NAFLD (nonalcoholic fatty liver disease) 01/08/2025 Telephone Gastroenterology - [address] [place] [phone] Silvia Mcfarlane PA 01/02/2025 Results Follow-Up Adult [facility] - [address] [phone] Caro Vallecillo PA 01/02/2025 Telephone Adult [address] [phone] Niyah Burk MA 01/01/2025 1:30 PM EDT Office Visit Adult [address] [phone] Caro Vallecillo PA Obstructive sleep apnea (Primary Dx); Encounter for long-term (current) use of high-risk medication; Large vessel vasculitis (CMS/HCC V24, CMS/HCC V28); Giant cell arteritis with polymyalgia rheumatica (CMS/HCC V24, CMS/HCC V28); Rheumatoid arthritis, involving unspecified site, unspecified whether rheumatoid factor present (CMS/HCC V24, CMS/HCC V28); PMR (polymyalgia rheumatica) ([facility] V24); Positive DAREN (antinuclear antibody); Gastroesophageal reflux disease without esophagitis; Hypercholesteremia; Primary hypertension; Hypothyroidism, unspecified type; Panic disorder; Panic disorder (episodic paroxysmal anxiety) 12/15/2024 Telephone Gastroenterology - [place] [address] [facility] [address] [facility] [address] [place] [address] Silvia Mcfarlane PA 11/14/2024 Telephone Adult Medicine [facility] [address] [place] [phone] Belia Shay MD 11/14/2024 Telephone Adult [facility] [address] [place] [phone] Belia Shay MD 11/14/2024 Telephone Adult [facility] [address] [place] [phone] Belia Shay MD from Last 3 Months Immunizations Immunization Administration Dates Next Due Influenza Quadrivalent, 0.5m l, preservative free (Fluarix; FluLaval; Fluzone) ages 6mo and older (Afluria) 3yo and older 04/04/2020 Influenza trivalent, 0.5mL ( Fluzone High-dose) 65yo and older 02/05/2022,01/28/2021 Influenza trivalent, with pr eservative (Fluzone; Afluria) 6mo and older 03/28/2014 Pfizer Covid-19 Bivalent, Or iginal + Ba.1 (Non-US Trademark COMIRNATKentaura Bivalent) 04/20/2022 Tdap Tetanus diptheria acell ular [...] pressure) depen dence Celiac disease Rheumatoid arthritis ([facility] V24, [facility] V28) 01/2024 Hypothyroid Family History Medical History [...] 0 Q uit: 1998 Smokeless Tobacco: Never Tobacco [...] care for your loved ones. For example, special needs child caregiver or elderly care for an [...] 1:00 PM EST Office Visit Adult Medicine [facility] [address] [place] [phone] Caro Vallecillo PA [address] [place] [address] 02/14/2025 8:00 AM EST Appointment [facility] Nuclear Medicine [address] [place] [phone] 05/31/2025 9:10 AM EDT Office Visit [facility] [address] [facility] [address] [place] [phone] Peyton Castillo, AMBIKA [address] [place] [address] [address] [place] [phone] 08/20/2025 1:00 PM EDT Office Visit Gastroenterology - [address] [facility] [address] [facility] [address] [place] [phone] Silvia Mcfarlane PA [address] [facility] [address] [place] [address] Health Maintenance Due Date Last Done Comments [...] 02/06/2023 02/06/2013, 10/04/2009 COVID-19 Vaccine ( season) 2024 02/11/2021, 06/20/2020, 05/29/2020 Influenza Vaccine [...] this topic Medical Devices Implanted Type Area Healthcare Management Consultant Device Identifier Shelf Expiration Date Model / Serial / Lot Sealant Fibrin Vistaseal 10ml - [id number] - [id number] Implanted:Qty: 1 on 01/18/2024 by Emily Ho MD at [facility] Hemostasis N/A: Abdomen [employer] [id number] 09/13/2025 [id number] / [id number] / [id number] Tissue Ovitex 1s Perm 6x10cm - Sna - [id number] Implanted:Qty: 1 on 01/18/2024 by Emily Ho MD at [facility] Surgical Mesh Sling Implants N/A: Abdomen [employer] [id number] 07/05/2025 [id number] / NA / [id number] 1 Procedures Procedure Name Priority Date/Time Associated Diagnosis Comments PANCREATIC ELASTASE 1 Routine 01/11/2025 10:22 AM EST Epigastric pain Nausea and vomiting, unspecified vomiting type Diarrhea, unspecified type CALPROTECTIN, STOOL Routine 01/11/2025 1 0:22 AM EST Epigastric pain Nausea and vomiting, unspecified vomiting type Diarrhea, unspecified type GASTROINTESTINAL PATHOGENS BY PCR Routine 01/11/2025 10:22 AM EST Epigastric pain Nausea and vomiting, unspecified vomiting type Diarrhea, unspecified type Small intestinal bacterial overgrowth, unspecified DRUG ABUSE SCREEN EXPANDED WITH REFLEX CONFIRMATION, URINE Routine 01/01/2025 2:32 PM EDT Encounter for long-term (current) use of high-risk medication COMPREHENSIVE METABOLIC PANEL Routine 01/01/2025 2:25 PM EDT Primary hypertension THYROID STIMULATING HORMONE WITH REFLEX TO FREE T4 AND FREE T3 Routine 01/01/2025 2:25 PM EDT Hypothyroidism, unspecified type ASIF URINE CULTURE TUBE Routine 11/15/19 3:28 PM EDT Acute cystitis without hematuria URINALYSIS WITH REFLEX MICROSCOPIC AND CULTURE Routine 11/14/2024 3:28 PM EDT Acute cystitis without hematuria URINALYSIS WITH REFLEX MICROSCOPIC AND CULTURE Routine 11/14/2024 3:28 PM EDT Acute cystitis without hematuria CULTURE URINE Routine 11/14/2024 3:28 PM EDT Acute cystitis without hematuria LIPID PANEL Routine 09/20/2023 HM COLONOSCOPY Routine 10/07/2022 DXA BONE DENSITY STUDY 1+ SITS AXIAL SKEL Routine 03/05/2022 1:21 PM EST Encounter for screening for osteoporosis HM HEPATITIS C SCREENING Routine 09/18/2020 from Last 3 Months or Most Recently Relevant to Health Maintenance Results * Gastrointestinal pathogens molecular study (01/11/2025 10:22 AM EST) Campylobacter Detection by PCR Not Detected Not Detected LAB MICROBIOLOGY METHOD 5 2:32 PM [facility] Plesiomonas shigelloides Detection by PCR Not Detected Not Detected LAB MICROBIOLOGY METHOD 5 2:32 PM EST [facility] Salmonella Detection by PCR Not Detected Not Detected LAB MICROBIOLOGY METHOD 5 2:32 PM [facility] Vibrio Detection by PCR Not Detected Not Detected LAB MICROBIOLOGY METHOD 5 2:32 PM [facility] Vibrio cholerae Detection by PCR Not Detected Not Detected LAB MICROBIOLOGY METHOD 5 2:32 PM [facility] Yersinia enterocolitica Detection by PCR Not Detected Not Detected LAB MICROBIOLOGY METHOD 5 2:32 PM [facility] Enteroaggregative E coli EAEC Detection by PCR Not Detected Not Detected LAB MICROBIOLOGY METHOD 5 2:32 PM [facility] Enteropathogenic E coli EPEC Detection Not Detected Not Detected LAB MICROBIOLOGY METHOD 5 2:32 PM [facility] Enterotoxigenic E coli ETEC LTST Detection Not Detected Not Detected LAB MICROBIOLOGY METHOD 5 2:32 PM [facility] Shiga-like toxin producing E coli STEC STX1 STX2 Det Not Detected Not Detected LAB MICROBIOLOGY METHOD 5 2:32 PM [facility] Shigella Enteroinvasive E coli EIEC Detection Not Detected Not Detected LAB MICROBIOLOGY METHOD 5 2:32 PM [facility] Cryptosporidium Detection by PCR Not Detected Not Detected LAB MICROBIOLOGY METHOD 5 2:32 PM [facility] Cyclospora cayetanensis Detection by PCR Not Detected Not Detected LAB MICROBIOLOGY METHOD 5 2:32 PM EST [facility] Entamoeba histolytica Detection by PCR Not Detected Not Detected LAB MICROBIOLOGY METHOD 5 2:32 PM [facility] Giardia lamblia Detection by PCR Not Detected Not Detected LAB MICROBIOLOGY METHOD 5 2:32 PM [facility] Adenovirus F 40 41 Detection by PCR Not Detected Not Detected LAB MICROBIOLOGY METHOD 5 2:32 PM [facility] Astrovirus Detection by PCR Not Detected Not Detected LAB MICROBIOLOGY METHOD 5 2:32 PM [facility] Norovirus GI GII Detection by PCR Not Detected Not Detected LAB MICROBIOLOGY METHOD 5 2:32 PM [facility] Sapovirus Detection by PCR Not Detected Not Detected LAB MICROBIOLOGY METHOD 5 2:32 PM [facility] Rotavirus A Detection by PCR Not Detected Not Detected LAB MICROBIOLOGY METHOD 5 2:32 PM [facility] Stool Rectum structure / Unknown Non-blood Collection / Unknown 01/11/2025 10:22 AM EST 01/11/2025 10:22 AM EST [facility] - 01/11/2025 2:32 PM EST [...] MICROBIOLOGY - GENERAL OR DERABLES Final Result [facility] [address] [place] [address], * Pancreatic elastase 1 (01/11/2025 10:22 AM EST) Pancreatic Elastase 1 215.0 >200 mcg/g 01/15/2025 2:41 PM EST [facility] Comment: Adult and Pediatric Referance Ranges for Pancreatic Elastase-1: Normal: >200 mcg/g Moderate Pancreatic Insufficiency: 100-200 mcg/g Severe Pancreatic Insufficiency: <100 mcg/g Test performed at [facility], [address] [place] [address] Jessenia Rosen MD, PhD - Explosives Operator Stool Rectum structure / Unknown Non-blood Collection / Unknown 01/11/2025 10:22 AM EST 01/11/2025 10:22 AM EST [facility] DAILY LAB BODY FLUIDS AND STOOLS OR DERABLES Final Result Performing Organization Address [facility] de Phone Number [facility] [address] [place] [address] * Calprotectin, stool (01/11/2025 10:22 AM EST) Calprotectin, Fecal 26.9 <50 mcg/g 01/15/2025 2:41 PM EST [facility] Comment: <50 mcg/g Normal 50 - 120 mcg/g Borderline >120 mcg/g Abnormal Borderline results suggest repeat testing in 4 to 6 weeks. Test performed at [facility], [address] [place] [address] Jessenia Rosen MD, PhD - Explosives Operator Stool Rectum structure / Unknown Non-blood Collection / Unknown 01/11/2025 10:22 AM EST 01/11/2025 10:22 AM EST Silvia DAILY LAB BODY FLUIDS AND STOOLS OR DERABLES Final Result Performing Organization Address [facility]/ZIP Co de Phone Number [facility] [address] [place] [address] * Drug abuse screen expanded with reflex confirmation, urine (01/01/2025 2:32 PM EDT) Amphetamine Screen, Ur Negative Negative LAB CHEMISTRY METHOD 01/01/2025 5:43 PM EDT [facility] Comment:Certain OTC medicati ons containing ephedrine, phenylephrine, pseudoephedrine and phenylpropanolamine can cause false positive results. Barbiturate Screen, Ur Negative Negative LAB CHEMISTRY METHOD 01/01/2025 5:43 PM EDT [facility] Benzodiazepine Screen, Ur Negative Negative LAB CHEMISTRY METHOD 01/01/2025 5:43 PM EDT [facility] Cocaine Screen, Ur Negative Negative LAB CHEMISTRY METHOD [facility] Opiate Screen, Ur Negative Negative LAB CHEMISTRY METHOD 01/01/2025 5:43 PM [facility] Cannabinoid (THC) Screen, Ur Negative Negative LAB CHEMISTRY METHOD 01/01/2025 5:43 PM EDT [facility] Comment:Specimens from patie nts taking pantoprazole sodium (Protonix) have been shown to produce false positive results. Fentanyl, Ur Negative Negative LAB CHEMISTRY METHOD 01/01/2025 5:43 PM EDT [facility] Oxycodone Screen, Ur Negative Negative LAB CHEMISTRY METHOD 01/01/2025 5:43 PM [facility] Urine Urine specimen obtained by clean catch procedure / Unknown Non-blood Collection / Unknown 01/01/2025 2:32 PM EDT 01/01/2025 2:32 PM EDT Narrative [facility] - 01/01/2025 5:43 PM EDT Assay cutoffs: Amphetamines 1000 ng/mL Barbiturates 200 ng/mL Benzodiazepines 200 ng/mL Cocaine 300 ng/mL Fentanyl 1 ng/mL Opiates 300 ng/mL Oxycodone 100 ng/mL THC 50 ng/mL Semi-quantitative assay for screening purposes only. Unconfirmed screening result should not be used for non-medical purposes. *POSITIVE RESULTS ARE AUTOMATICALLY SENT FOR ALTERNATE METHOD CONFIRMATION* Caro DAILY LAB URINE ORDERABLES Final Result Performing Organization Address City/[facility]/ZIP Co de Phone Number [facility] [address] [place] [address], [place] [phone] * Thyroid stimulating hormone with reflex to free t4 and free t3 (01/01/2025 2:25 PM EDT) [facility] TSH 0.77 0.40 - 4.00 mcIU/mL LAB CHEMISTRY METHOD 01/01/2025 6:09 PM EDT [facility] Blood Venous blood specimen / Unknown Venipuncture / Unknown 01/01/2025 2:25 PM EDT 01/01/2025 2:25 PM EDT Caro DAILY LAB BLOOD ORDERABLES Final Result Performing Organization Address City/[facility]/ZIP Co de Phone Number [facility] [address] [place] [address], [place] [phone] * (ABNORMAL) Comprehensive metabolic panel (01/01/2025 2:25 PM EDT) [facility] Sodium 130(L) 133 - 145 mmol/L LAB CHEMISTRY METHOD 01/01/2025 5:07 PM EDT [facility] Potassium 4.3 3.5 - 5.5 mmol/L LAB CHEMISTRY METHOD 01/01/2025 5:07 PM EDT [facility] Chloride 95(L) 96 - 110 mmol/L LAB CHEMISTRY METHOD 01/01/2025 5:07 PM EDT [facility] CO2 25 21 - 32 mmol/L LAB CHEMISTRY METHOD 01/01/2025 5:07 PM EDT [facility] Anion Gap 10 3 - 11 LAB CHEMISTRY METHOD 01/01/2025 5:07 PM EDT [facility] Glucose 90 70 - 100 mg/dL LAB CHEMISTRY METHOD 01/01/2025 5:07 PM [facility] BUN 10 5 - 25 mg/dL LAB CHEMISTRY METHOD 01/01/2025 5:07 PM [facility] Creatinine 0.65 0.50 - 1.10 mg/dL LAB CHEMISTRY METHOD 01/01/2025 5:07 PM [facility] eGFR 95 >=60 mL/min/1. 73m2 LAB CHEMISTRY METHOD 01/01/2025 5:07 PM [facility] Comment:Calculation based on the Chronic Kidney Disease Epidemiology Collaboration (CKD-EPI) equation refit without adjustment for race. BUN/Creatinine Ratio 15.4 LAB CHEMISTRY METHOD 01/01/2025 5:07 PM [facility] Calcium 10.3 8.5 - 10.5 mg/dL LAB CHEMISTRY METHOD 01/01/2025 5:07 PM [facility] AST (SGOT) 22 10 - 42 unit/L LAB CHEMISTRY METHOD 01/01/2025 5:07 PM [facility] ALT (SGPT) 31 10 - 60 unit/L LAB CHEMISTRY METHOD 01/01/2025 5:07 PM [facility] Alkaline Phosphatase 66 42 - 121 unit/L LAB CHEMISTRY METHOD 01/01/2025 5:07 PM [facility] Total Protein 7.9 6.0 - 8.0 g/dL LAB CHEMISTRY METHOD 01/01/2025 5:07 PM [facility] Albumin 4.6 3.2 - 5.0 g/dL LAB CHEMISTRY METHOD 01/01/2025 5:07 PM [facility] Total Bilirubin 0.4 0.0 - 1.4 mg/dL LAB CHEMISTRY METHOD 01/01/2025 5:07 PM [facility] Blood Venous blood specimen / Unknown Venipuncture / Unknown 01/01/2025 2:25 PM EDT 01/01/2025 2:25 PM EDT us Car[facility] DAILY LAB BLOOD ORDERABLES Final Result [facility] [address] [place] [address], [place] [phone] * (ABNORMAL) Urinalysis with reflex microscopic and culture (11/14/2024 3:28 PM EDT) Pathologist [facility] Specific [place] Urine 1.009 1.003 - 1.030 LAB URINALYSIS - AUTOMATED METHOD 11/14/2024 5:40 PM EDT [facility] pH, Urine 7.5 5.0 - 8.0 pH LAB URINALYSIS - AUTOMATED METHOD 11/14/2024 5:40 PM EDT [facility] Leukocytes, Urine Small(A) Negative LAB URINALYSIS - AUTOMATED METHOD 11/14/2024 5:40 PM EDT [facility] Nitrite, Urine Negative Negative LAB URINALYSIS - AUTOMATED METHOD 11/14/2024 5:40 PM EDT [facility] Protein, Urine Negative <=Trace mg/dL LAB URINALYSIS - AUTOMATED METHOD 11/14/2024 5:40 PM EDT [facility] Glucose, Urine Negative Negative mg/dL LAB URINALYSIS - AUTOMATED METHOD 11/14/2024 5:40 PM EDT [facility] Ketones, Urine Negative Negative mg/dL LAB URINALYSIS - AUTOMATED METHOD 11/14/2024 5:40 PM EDT [facility] Urobilinogen , Urine 0.2 0.2 - 1.0 mg/dL LAB URINALYSIS - AUTOMATED METHOD 11/14/2024 5:40 PM EDT [facility] Bilirubin, Urine Negative Negative LAB URINALYSIS - AUTOMATED METHOD 11/14/2024 5:40 PM EDT [facility] Blood, Urine Negative Negative LAB URINALYSIS - AUTOMATED METHOD 11/14/2024 5:40 PM EDT [facility] RBC, Urine 2.3 0 - 4 /HPF LAB URINALYSIS - AUTOMATED METHOD 11/14/2024 5:40 PM EDT [facility] WBC, Urine 14.4(H) 0 - 4 /HPF LAB URINALYSIS - AUTOMATED METHOD 11/14/2024 5:40 PM EDT [facility] Squamous Epithelial, Urine 8 0 - 60 /LPF LAB URINALYSIS - AUTOMATED METHOD 11/14/2024 5:40 PM EDT [facility] Bacteria, Urine Moderate(A) Negative /HPF LAB URINALYSIS - AUTOMATED METHOD 11/14/2024 5:40 PM EDT [facility] Hyaline Casts, Urine 0.0 0 - 3 /LPF LAB URINALYSIS - AUTOMATED METHOD 11/14/2024 5:40 PM EDT [facility] Urine Urine specimen obtained by clean catch procedure / Unknown Non-blood Collection / Unknown 11/14/2024 3:28 PM EDT 11/14/2024 3:28 PM EDT Belia Villavicencio MD LAB URINE ORDERABL ES Final Result Performing Organization Address City/[facility]/ZIP Co de Phone Number [facility] [address] [place] [address], [place] [phone] * Asif urine culture tube (11/14/2024 3:28 PM EDT) Extra Tube Hold for add-ons. 11/14/2024 6:01 PM EDT [facility] Comment:Auto resulted. Urine Urine specimen obtained by clean catch procedure / Unknown Non-blood Collection / Unknown 11/14/2024 3:28 PM EDT 11/14/2024 3:28 PM EDT Belia Villavicencio MD LAB URINE ORDERABL ES Final Result [facility] [address] [place] [address], [place] [phone] * (ABNORMAL) Culture urine (11/14/2024 3:28 PM EDT) Pathologist [facility] Culture, Urine >=100,000 CFU/mL Serratia marcescens(A ) FRANCIA 11/16/2024 10:38 AM EDT [facility] Comment: This is an [...] Serratia marcescens Trimethoprim/Sulfamethoxazole FRANCIA <=20 ug/ml: Susceptible Belia Villavicencio MD LAB MICROBIOLOGY - GENERAL ORDERABLES Final Result [facility] [address] [place] [address], [place] [phone] * (ABNORMAL) Lipid panel (09/20/2023) Pathologist [facility] LDL/HDL Ratio 5(A) 0 - 4 Triglycerides 245(A) 0 - 150 mg/dL Cholesterol 275(A) 0 - 200 mg/dL HDL 60 >=40 mg/dL LDL Cholesterol 166(A) 0 - 100 mg/dL Blood Venous blood specimen / Unknown us Historical Provider MD LAB BLOOD ORDERABLES Molly l Result * Colonoscopy (10/07/2022) Pathologist [facility] Colonoscopy no interpretation , abstracted Anatomical [...] classified as having normal bone density. [facility] Department of Internal Medicine recommends [...] classified as having normal bone density. The [facility] Department of Internal Medicine recommendsusing [...] of fracture risk by FRAX. 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
--- OUTSIDE RECORDS SUMMARY | 2025-01-16 10:02 | XMS_ITS | Encounter Summary ---
[facility] Address [address] [place] [address] Care Team Providers Care Librarian Special Library Name Role Phone Belia Villavicencio MD Primary Care Prov ider Encounter Details Date Type Department Care Team ([facility] st Contact Info) Description 01/14/2025 Results Follow-Up Gastroenterology - [address] [phone] Silvia Mcfarlane PA [address] [id number] Social History Tobacco Use Types Packs/Day Years [...] your loved ones. For example, early childhood educator aide or elderly care for an older [...] this encounter Progress Notes * ABIMBOLA Butler - 01/15/2025 4:44 PM EST I will send msg. documented in this encounter Plan of Treatment Upcoming Encounters Date Type Department Care Team (Late st Contact Info) Description 01/29/2025 1:00 PM EST Office Visit Adult Medicine [facility] [address] [place] [address] Caro Vallecillo PA [address] [place] [address] 02/14/2025 8:00 AM EST Appointment [facility] Nuclear Medicine [address] [place] [phone] 05/31/2025 9:10 AM EDT Office Visit [facility] [address] [place] [phone] Peyton Castillo NP [address] [place] [address] [place] [address] 08/20/2025 1:00 PM EDT Office Visit Gastroenterology - 299 Jennifer 299 [facility] [address] [place] [phone] Silvia Mcfarlane PA 299 [facility] [address] [place] [address] documented as of this encounter Visit Diagnoses Not on filedocumented in this encounter Additional Health Concerns Assessment Noted Time PHQ-9 Depression Total Score: 0 03/27/19 25 4:47 PM EST documented as of this encounter Care Teams Librarian Special Library Relationship Specialty Start Date End Date Belia Villavicencio MD [address] [place] [id number] PCP - General Internal Medicine 01/17/24 documented as of this encounter
--- OUTSIDE RECORDS SUMMARY | 2025-01-16 10:02 | XMS_ITS | Encounter Summary ---
Author Organization [facility] [place] [address] Care Team Providers Care Supervisor Ore Dressing Name Role Phone Belia Villavicencio MD Primary Care Prov ider Reason for Referral * Consultation (Routine) - Closed Specialty Diagnoses / Procedures Referred By Moon hendrickson Referred To Contact Nephrology Diagnoses Hyponatremia Caro Vallecillo PA [address] [place], [place] Phone: tel: fax: Matt Stone, DO [address] [facility] [address] [place] [address] fax: Referral ID Status Reason Start Date Expiration Date V isits Requested Visits Authorized [id number] Closed Specialty Services Required 01/02/2025 01/02/2026 1 1 Encounter Details Date Type Department Care Team (Late st Contact Info) Description 01/02/2025 Results Follow-Up Adult Medicine - [place] [address] [place] [address] Caro Vallecillo PA [address] [place], [place] Social History Tobacco Use Types Packs/Day [...] PM EST Office Visit Adult Medicine - [place] [address] [place] [phone] Caro Vallecillo PA [address] [place] [address] 02/14/2025 8:00 AM EST Appointment [facility] Nuclear Medicine [address] [place] [phone] 05/31/2025 9:10 AM EDT Office Visit [facility] - [facility] [address] [facility] [address] [place] [phone] Peyton Castillo NP [address] [place] [address] [place] [phone] 08/20/2025 1:00 PM EDT Office Visit Gastroenterology - 299 Jennifer 299 [facility] [address] [place] [phone] Silvia Mcfarlane PA 299 [facility] [address] [place] [address] Scheduled Referrals Name Type Priority Associated Diagnoses [...] documented as of this encounter Care Teams Supervisor Ore Dressing Relationship Specialty Start Date End Date Belia Villavicencio MD [address] [place] [address] PCP - General Internal Medicine 01/17/24 documented as of this encounter
== END 2025-01-16 10:39 | disposition home or self-care (01) ==
LOC: HO.RHES 09:16
PROVIDERS: PCP Internal Medicine; Visit Provider Student in an Organized Health Care Education/Training Program
DX: M31.6 Other giant cell arteritis (principal); M35.3 Polymyalgia rheumatica; M70.62 Trochanteric bursitis, left hip; Z51.81 Encounter for therapeutic drug level monitoring; Z79.631 Long term (current) use of antimetabolite agent; Z79.52 Long term (current) use of systemic steroids
CPT/HCPCS: 20610; 99214

== ENCOUNTER → 2025-01-16 09:15 | Outpatient (BNVA) | payer OTHER, SELFPAY | PROVIDERS: PCP Internal Medicine; Visit Provider Student in an Organized Health Care Education/Training Program | DX: M70.62 Trochanteric bursitis, left hip (principal); M35.3 Polymyalgia rheumatica; M31.6 Other giant cell arteritis; Z51.81 Encounter for therapeutic drug level monitoring; Z79.631 Long term (current) use of antimetabolite agent; Z79.52 Long term (current) use of systemic steroids | CPT/HCPCS: 20610; 99212; J2003; J3301 ==